=== PATIENT | female | born 1975 | race American Indian/Alaskan Native ===

== ENCOUNTER 2016-08-29 18:23 | Emergency (ER) | payer MEDICARE, MEDICAID ==
[2016-08-29 21:15] LABS: CHLORIDE,CL 101 mmol/L (101-111); SODIUM,NA 134 mmol/L (135-145)
--- NOTE | 2016-08-29 21:44 | EDM.PDOC ---
ED HPI GENERAL MEDICAL PROBLEM - General Chief Complaint: Lower Extremity Injury/Pain Stated Complaint: LEFT LEG PAINS, [id number] Time Seen by Provider: 08/29/16 19:15 Source of Information: Reports: Patient History Limitations: Reports: No Limitations - History of Present Illness INITIAL COMMENTS - FREE TEXT/NARRATIVE: increasing redness to left lower leg since Monday. Hx MRSA. Diabetic and RA. Fevers yesterday. No hx of clotting disorders. Hospitalized multiple times for skin infections. No known wound to area. Started in vicinity of old scars. Left Lower Leg Pain Score (Numeric/FACES): 10 - Related Data Allergies Allergy/AdvReac Type Severity Reaction Status Date / Time daptomycin Allergy Rash Verified 08/29/16 19:24 rituximab [From Rituxan] Allergy Difficulty Verified 08/29/16 19:24 Breathing Home Meds: Home Meds Ascorbic Acid [Vitamin C] 250 mg PO TID 03/08/14 [History] Ibuprofen [Motrin] 600 mg PO Q8H PRN 03/08/14 [History] predniSONE 5 mg PO BID 03/08/14 [History] Ferrous Sulfate [Iron] 325 mg PO TID 09/13/14 [History] Pantoprazole [Pantoprazole Sodium] 40 mg PO DAILY 09/13/14 [History] Albuterol [Proventil Neb Soln] 2.5 mg NEB QIDRT PRN 04/27/15 [History] Calcium Carbonate/Vitamin D3 [Calcium 500 + Vit D 400] 1 tab PO DAILY 08/07/15 [ History] DULoxetine [Cymbalta] 60 mg PO DAILY 08/07/15 [History] Etanercept [Enbrel] 25 mg IM .TWICE A WEEK 08/07/15 [History] Insulin Glarg,Human.Rec.Analog [LantUS Solostar] 20 units SQ BEDTIME 08/07/15 [ History] Insulin Lispro [Humalog] 10 units SQ TIDAC PRN 08/07/15 [History] rOPINIRole [Requip] 1 mg PO BEDTIME 08/13/15 [History] Multivitamin [Multivitamins] 1 each PO DAILY 09/20/15 [History] oxyCODONE HCl/Acetaminophen [Endocet 10-325 mg Tablet] 1 each PO DAILY PRN 09/19 [History] Ketorolac [Acular 0.5% Ophth Soln] 1 drop EYERT ASDIRECTED 04/14/16 [History] Lisinopril [Prinivil] 2.5 mg PO DAILY 04/14/16 [History] Ofloxacin [Ofloxacin] 1 drop EYERT ASDIRECTED 04/14/16 [History] Oxybutynin [Oxybutynin ER] 5 mg PO BEDTIME 04/14/16 [History] Pregabalin [Lyrica] 75 mg PO BEDTIME 04/14/16 [History] cycloSPORINE [Restasis] 1 drop EYEBOTH ASDIRECTED 04/14/16 [History] prednisoLONE Acetate [Pred Forte 1% Ophth Susp] 1 drop EYERT ASDIRECTED [History] Insulin Aspart [NovoLOG] 20 units INJECT BID 05/16/16 [History] Past Medical History - Past Health History Medical/Surgical History: Denies Medical/Surgical History HEENT History: Reports: Cataract, Impaired Vision Other HEENT History: wears glasses Cardiovascular History: Reports: Hypertension, SOB on Exertion Respiratory History: Reports: Bronchitis, Recurrent, Sleep Apnea, SOB Gastrointestinal History: Reports: Gastritis Other Gastrointestinal History: chronic stomach pains. 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 OSTEOMELITIS OF RIGHT FOOT Neurological History: Reports: None, Other (See Below) Other Neuro History: SOMNOLENCE, DAYTIME Psychiatric History: Reports: None, Anxiety, Eating Disorders Endocrine/Metabolic History: Reports: Diabetes, Type II, IDDM, Obesity/BMI 30+ Hematologic History: Reports: Iron Deficiency, Other (See Below) Other Hematologic History: HX OF SEPSIS. HX OF MRSA INFECTION Immunologic History: Reports: Immunosuppression, Other (See Below) Other Immunologic History: RA Oncologic (Cancer) History: Reports: None Dermatologic History: Reports: Cellulitis, Other (See Below) Other Dermatologic History: hx of mrsa. HX OF SKIN ULCERS OF FOOT, BILAT. DIABETIC SKIN ULCERS. CELLULITIS OF L ANTERIOR LOWER LEG. BIOPSY OF SKIN LESION - Infectious Disease History Infectious Disease History: Reports: Chicken Pox, MRSA, Shingles - Past Surgical History HEENT Surgical History: Reports: None GI Surgical History: Reports: EGD, Other (See Below) Musculoskeletal Surgical History: Reports: None, Other (See Below) Oncologic Surgical History: Reports: None Dermatological Surgical History: Reports: Other (See Below) Social & Family History - Family History Family Medical History: Noncontributory HEENT: Reports: None Cardiac: Reports: None Respiratory: Reports: None GI: Reports: None : Reports: None OBGYN: Reports: None Musculoskeletal: Reports: RA Neurological: Reports: None Psychiatric: Reports: Depression Endocrine/Metabolic: Reports: Diabetes, type II Hematologic: Reports: None Immunologic: Reports: None Dermatologic: Reports: None Oncologic: Reports: None - Tobacco Use Smoking Status *Q: Former Smoker Years of Tobacco use: 10 Packs/Tins Daily: 0.5 Used Tobacco, but Quit: No Month Tobacco Last Used: 09/06/2010 Second Hand Smoke Exposure: No - Caffeine Use Caffeine Use: Reports: Coffee, Soda, Tea - Alcohol Use Days Per Week of Alcohol Use: 0 - Recreational Drug Use Recreational Drug Use: No Drug Use in Last 12 Months: No - Living Situation & Occupation Living situation: Reports: with Family Review of Systems - Review of Systems Review Of Systems: See Below Constitutional: Reports: Fever Eyes: Reports: No Symptoms Ears: Reports: No Symptoms Nose: Reports: No Symptoms Mouth/Throat: Reports: No Symptoms Respiratory: Reports: No Symptoms Cardiovascular: Reports: No Symptoms Musculoskeletal: Reports: Leg Pain (left) Skin: Reports: Erythema, Change in Color, Other Neurological: Reports: No Symptoms ED EXAM, GENERAL - Physical Exam Exam: See Below Exam Limited By: No Limitations General Appearance: Alert, Moderate Distress, Obese Eye Exam: Bilateral Eye: EOMI, PERRL Ears: Normal External Exam Nose: Normal Inspection Throat/Mouth: Normal Inspection Head: Atraumatic Neck: Normal Inspection Respiratory/Chest: No Respiratory Distress, Lungs Clear, Normal Breath Sounds Cardiovascular: Normal Peripheral Pulses, Regular Rate, Rhythm GI/Abdominal: Normal Bowel Sounds, Soft, Non-Tender Extremities: Leg Pain, Redness Neurological: Alert, Oriented, Normal Cognition Skin Exam: Warm, Dry, Erythema, Increased Warmth, Other (increased redness to left lowe extremity area marked, no open areas visualized, 3+ edema posterior medial , pain with light touch. ). No: Normal Color Course - Vital Signs Last Recorded V/S: Last Vital Signs Temp 97.0 F 08/29/16 23:44 Pulse 98 08/29/16 23:44 Resp 18 08/29/16 23:44 BP 109/55 L 08/29/16 23:44 Pulse Ox 98 08/29/16 23:44 - Orders/Labs/Meds Orders: Active Orders 24 hr Category Date Time Status Glucose [Blood Glucose Check, Bedside] [RC] ONETIME Care 08/29/16 23:05 Active CULTURE BLOOD [BC] Stat Lab 08/29/16 20:46 Received Labs: Laboratory Tests 08/29/16 08/29/16 08/29/16 Range/Units 20:46 20:46 20:46 WBC 6.8 (5.0-10.0) 10^3/uL RBC 5.23 (4.2-5.4) 10^6/uL Hgb 15.4 (12.0-16.0) g/dL Hct 47.5 H (37.0-47.0) % MCV 90.8 (80-100) fL MCH 29.4 (27.0-34.0) pg MCHC 32.4 L (33.0-35.0) g/dL Plt Count 255 (150-450) 10^3/uL Neut % (Auto) 85.4 H (42.2-75.2) % Lymph % (Auto) 11.3 L (20.5-50.1) % Emmons % (Auto) 2.9 (2-8) % Eos % (Auto) 0.4 L (1.0-3.0) % Baso % (Auto) 0.0 (0.0-1.0) % Sodium 134 L (135-145) mmol/L Potassium 4.0 (3.6-5.0) mmol/L Chloride 101 (101-111) mmol/L Carbon Dioxide 20.0 L (21.0-31.0) mmol/L Anion Gap 17.0 BUN 14 (7-18) mg/dL Creatinine 1.0 (0.6-1.3) mg/dL Est Cr Clr Drug Dosing 74.68 mL/min Estimated GFR (MDRD) > 60 BUN/Creatinine Ratio 14.00 Glucose 265 H (74-105) mg/dL POC Glucose (70-105) mg/dl Lactic Acid 1.7 (0.5-2.2) mmol/L Calcium 9.1 (8.4-10.2) mg/dl Total Bilirubin 0.8 (0.2-1.0) mg/dL AST 30 (10-42) IU/L ALT 25 (10-60) IU/L Alkaline Phosphatase 68 (42-121) IU/L Total Protein 8.3 H (6.7-8.2) g/dl Albumin 3.8 (3.2-5.5) g/dl Globulin 4.5 Albumin/Globulin Ratio 0.84 Amylase 17 L (28-100) U/L Lipase 23 (22-51) U/L // Range/Units 23:06 WBC (5.0-10.0) 10^3/uL RBC (4.2-5.4) 10^6/uL Hgb (12.0-16.0) g/dL Hct (37.0-47.0) % MCV (80-100) fL MCH (27.0-34.0) pg MCHC (33.0-35.0) g/dL Plt Count (150-450) 10^3/uL Neut % (Auto) (42.2-75.2) % Lymph % (Auto) (20.5-50.1) % Emmons % (Auto) (2-8) % Eos % (Auto) (1.0-3.0) % Baso % (Auto) (0.0-1.0) % Sodium (135-145) mmol/L Potassium (3.6-5.0) mmol/L Chloride (101-111) mmol/L Carbon Dioxide (21.0-31.0) mmol/L Anion Gap BUN (7-18) mg/dL Creatinine (0.6-1.3) mg/dL Est Cr Clr Drug Dosing mL/min Estimated GFR (MDRD) BUN/Creatinine Ratio Glucose (74-105) mg/dL POC Glucose 243 H (70-105) mg/dl Lactic Acid (0.5-2.2) mmol/L Calcium (8.4-10.2) mg/dl Total Bilirubin (0.2-1.0) mg/dL AST (10-42) IU/L ALT (10-60) IU/L Alkaline Phosphatase (42-121) IU/L Total Protein (6.7-8.2) g/dl Albumin (3.2-5.5) g/dl Globulin Albumin/Globulin Ratio Amylase (28-100) U/L Lipase (22-51) U/L Meds: Medications Discontinued Medications Generic Name Dose Route Start Last Admin Trade Name Bart PRN Reason Stop Dose Admin Cephalexin Confirm 08/29/16 23:40 Keflex Administered 08/29/16 23:41 Dose 1,000 mg .ROUTE .STK-MED ONE Diphenhydramine HCl 25 mg 08/29/16 21:48 08/29/16 21:58 Benadryl PO 08/29/16 21:49 25 mg ONETIME ONE Administration Vancomycin HCl 1 gm/ Sodium 250 mls @ 167 mls/hr 08/29/16 21:47 08/29/16 22: 00 Chloride IV 08/29/16 23:16 167 mls/hr ONETIME ONE Administration Insulin Human Regular 6 unit 08/29/16 21:53 08/29/16 22:05 Humulin R SUBCUT 08/29/16 21:54 6 units ONETIME ONE Administration Protocol Oxycodone/Acetaminophen 1 tab 08/29/16 22:20 08/29/16 22:22 Percocet 325-5 Mg PO 08/29/16 22:21 1 tab ONETIME ONE Administration Trimethoprim/Sulfamethoxazole Confirm 08/29/16 23:40 Septra Ds Administered 08/29/16 23:41 Dose 2 tab .ROUTE .STK-MED ONE - Re-Assessments/Exams Free Text/Narrative Re-Assessment/Exam: 08/30/16 00:06 IV antibiotic completed. Patient refused to wait for discharge instructions or prescriptions for continuing antibiotics. Left ambulatory. Departure - Departure Time of Disposition: 00:10 Disposition: Home, Self-Care 01 Condition: Undetermined Clinical Impression: Cellulitis of left lower extremity, Diabetes mellitus, Rheumatoid arthritis, Immunocompromised due to corticosteroids Hyperglycemia due to type 2 diabetes mellitus Qualifiers: Diabetes mellitus nursing home insulin use: unspecified nursing home insulin use status Qualified Code(s): E11.65 - Type 2 diabetes mellitus with hyperglycemia - Discharge Information Instructions: Cellulitis, Adult, [id number] Referrals: Faby Jenkins MD [Primary Care Provider] - Forms: ED Department Discharge Additional Instructions: keflex 500mg one 4 times daily for one week Bactrim DS one twice daily for one week Recheck in Clinic in 1-2 days rest elevate extremity - My Orders Last 24 Hours: My Active Orders 08/29/16 20:46 CULTURE BLOOD [BC] Stat 08/29/16 23:05 Glucose [Blood Glucose Check, Bedside] [] ONETIME - Assessment/Plan Last 24 Hours: My Active Orders 08/29/16 20:46 CULTURE BLOOD [BC] Stat 08/29/16 23:05 Glucose [Blood Glucose Check, Bedside] [RC] ONETIME
[2016-08-29] MEDS ORDERED: diphenhydrAMINE 25 MG Tab PO ONE (21:48)
[2016-08-29] MEDS ORDERED: Insulin Regular, Human 100 Units/ML 3 ML Vial SUBCUT ONE (21:53)
[2016-08-29] MEDS ORDERED: Acetaminophen/oxyCODONE 325-5 MG Tab PO ONE (22:20)
[2016-08-29] MEDS ORDERED: Sulfamethoxazole/Trimethoprim 800-160 MG Tab PO ONE (23:40)
[2016-08-29] MEDS ORDERED: Cephalexin 500 MG Cap PO ONE (23:40)
[2016-08-29] MEDS ORDERED: Sulfamethoxazole/Trimethoprim 800-160 MG Tab ONE (23:40)
[2016-08-29] MEDS ORDERED: Cephalexin 500 MG Cap ONE (23:40)
[2016-08-29 23:45] VITALS: BP 109/55
== END 2016-08-30 00:10 | disposition home or self-care (01) ==
LOC: DL.ED 18:23
DX: L03.116 Cellulitis of left lower limb (principal); E11.9 Type 2 diabetes mellitus without complications; Z79.4 Long term (current) use of insulin; M06.9 Rheumatoid arthritis, unspecified; T45.1X5A Adverse effect of antineoplastic and immunosuppressive drugs, initial encounter; Z79.52 Long term (current) use of systemic steroids; I10 Essential (primary) hypertension; G47.30 Sleep apnea, unspecified; M79.7 Fibromyalgia; M41.9 Scoliosis, unspecified; F41.9 Anxiety disorder, unspecified; F50.9 Eating disorder, unspecified; E66.9 Obesity, unspecified; E61.1 Iron deficiency; Z86.14 Personal history of Methicillin resistant Staphylococcus aureus infection; Z79.899 Other long term (current) drug therapy; Z87.891 Personal history of nicotine dependence
CPT/HCPCS: 36415; 80053; 82150; 82550; 82962; 83605; 83690; 85025; 87040; 96365; 96366; 96372; 99283; A9270; J1815; J3370; J7050; 99284

== ENCOUNTER 2016-11-08 02:58 | Inpatient (IN) | payer MEDICARE, MEDICAID ==
--- NOTE | 2016-11-08 03:36 | EDM.PDOC ---
ED HPI GENERAL MEDICAL PROBLEM - General Chief Complaint: Lower Extremity Injury/Pain Stated Complaint: INFECTION IN LEG [id number] Time Seen by Provider: 11/08/16 03:29 Source of Information: Reports: Patient History Limitations: Reports: No Limitations - History of Present Illness INITIAL COMMENTS - FREE TEXT/NARRATIVE: c/o increased pain in left lower leg wound for past 2 days after completing antibiotic, Patient notes since stopping abx, would is larger, draining more and more painful. Hx MRSA, DM and RA. Appoint to follow up scheduled with PCP tomorrow am but pain to bad to wait. Noted odor to wound drainage on monday. Wound width and length increasing. Difficult to move since taken off steroids with infection. Has spent much time in bed. Notes unable some days to hold and grasp eating utensil to feed self. Location: Reports: Lower Extremity, Left Quality: Reports: Burning, Throbbing Severity: Moderate Left Lower Leg Pain Score (Numeric/FACES): 9 - Related Data Allergies Allergy/AdvReac Type Severity Reaction Status Date / Time daptomycin Allergy Rash Verified 11/08/16 03:15 rituximab [From Rituxan] Allergy Difficulty Verified 11/08/16 03:15 Breathing Home Meds: Home Meds Ascorbic Acid [Vitamin C] 250 mg PO TID 03/08/14 [History] Ibuprofen [Motrin] 600 mg PO Q8H PRN 03/08/14 [History] predniSONE 5 mg PO BID 03/08/14 [History] Ferrous Sulfate [Iron] 325 mg PO TID 09/13/14 [History] Pantoprazole [Pantoprazole Sodium] 40 mg PO DAILY 09/13/14 [History] Albuterol [Proventil Neb Soln] 2.5 mg NEB QIDRT PRN 04/27/15 [History] Calcium Carbonate/Vitamin D3 [Calcium 500 + Vit D 400] 1 tab PO DAILY 08/07/15 [ History] DULoxetine [Cymbalta] 60 mg PO DAILY 08/07/15 [History] Etanercept [Enbrel] 25 mg IM .TWICE A WEEK 08/07/15 [History] Insulin Glarg,Human.Rec.Analog [LantUS Solostar] 20 units SQ BEDTIME 08/07/15 [ History] Insulin Lispro [Humalog] 10 units SQ TIDAC PRN 08/07/15 [History] rOPINIRole [Requip] 1 mg PO BEDTIME 08/13/15 [History] Multivitamin [Multivitamins] 1 each PO DAILY 09/20/15 [History] oxyCODONE HCl/Acetaminophen [Endocet 10-325 mg Tablet] 1 each PO Q4H PRN [History] Lisinopril [Prinivil] 2.5 mg PO DAILY 04/14/16 [History] Oxybutynin [Oxybutynin ER] 5 mg PO BEDTIME 04/14/16 [History] Pregabalin [Lyrica] 75 mg PO BEDTIME 04/14/16 [History] cycloSPORINE [Restasis] 1 drop EYEBOTH ASDIRECTED 04/14/16 [History] Insulin Aspart [NovoLOG] 20 units INJECT BID 05/16/16 [History] Past Medical History - Past Health History Medical/Surgical History: Denies Medical/Surgical History HEENT History: Reports: Cataract, Impaired Vision Other HEENT History: wears glasses Cardiovascular History: Reports: Hypertension, SOB on Exertion Respiratory History: Reports: Bronchitis, Recurrent, Sleep Apnea, SOB Gastrointestinal History: Reports: Gastritis Other Gastrointestinal History: chronic stomach pains. 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 OSTEOMELITIS OF RIGHT FOOT Neurological History: Reports: None, Other (See Below) Other Neuro History: SOMNOLENCE, DAYTIME Psychiatric History: Reports: None, Anxiety, Eating Disorders Endocrine/Metabolic History: Reports: Diabetes, Type II, IDDM, Obesity/BMI 30+ Hematologic History: Reports: Iron Deficiency, Other (See Below) Other Hematologic History: HX OF SEPSIS. HX OF MRSA INFECTION Immunologic History: Reports: Immunosuppression, Other (See Below) Other Immunologic History: RA Oncologic (Cancer) History: Reports: None Dermatologic History: Reports: Cellulitis, Other (See Below) Other Dermatologic History: hx of mrsa. HX OF SKIN ULCERS OF FOOT, BILAT. DIABETIC SKIN ULCERS. CELLULITIS OF L ANTERIOR LOWER LEG. BIOPSY OF SKIN LESION - Infectious Disease History Infectious Disease History: Reports: Chicken Pox, MRSA, Shingles - Past Surgical History HEENT Surgical History: Reports: None GI Surgical History: Reports: EGD Musculoskeletal Surgical History: Reports: None Oncologic Surgical History: Reports: None Social & Family History - Family History Family Medical History: Noncontributory HEENT: Reports: None Cardiac: Reports: None Respiratory: Reports: None GI: Reports: None : Reports: None OBGYN: Reports: None Musculoskeletal: Reports: RA Neurological: Reports: None Psychiatric: Reports: Depression Endocrine/Metabolic: Reports: Diabetes, type II Hematologic: Reports: None Immunologic: Reports: None Dermatologic: Reports: None Oncologic: Reports: None - Tobacco Use Smoking Status *Q: Unknown Ever Smoked Years of Tobacco use: 10 Packs/Tins Daily: 0.5 Used Tobacco, but Quit: No Month Tobacco Last Used: 09/06/2010 Second Hand Smoke Exposure: No - Caffeine Use Caffeine Use: Reports: Coffee, Soda - Alcohol Use Days Per Week of Alcohol Use: 0 - Recreational Drug Use Recreational Drug Use: No Drug Use in Last 12 Months: No - Living Situation & Occupation Living situation: Reports: with Family Review of Systems - Review of Systems Review Of Systems: See Below Constitutional: Reports: No Symptoms Eyes: Reports: No Symptoms Ears: Reports: No Symptoms Nose: Reports: No Symptoms Mouth/Throat: Reports: No Symptoms Respiratory: Reports: No Symptoms, Shortness of Breath (chronic with RA . On nebs at home , no change) Cardiovascular: Reports: No Symptoms GI/Abdominal: Reports: No Symptoms Musculoskeletal: Reports: Leg Pain (left) Skin: Reports: Wound Psychiatric: Reports: No Symptoms ED EXAM, GENERAL - Physical Exam Exam: See Below Exam Limited By: Language Barrier General Appearance: Alert, Moderate Distress, Obese Eye Exam: Bilateral Eye: EOMI Ears: Normal External Exam Nose: Nasal Deformity Throat/Mouth: Normal Inspection Head: Atraumatic, Normocephalic Respiratory/Chest: No Respiratory Distress, Lungs Clear Cardiovascular: Regular Rate, Rhythm GI/Abdominal: Normal Bowel Sounds, Soft Extremities: Normal Range of Motion. No: Non-Tender Neurological: Alert, Oriented, Normal Cognition Psychiatric: Normal Affect, Anxious, Tearful Skin Exam: Warm, Erythema, Wound/Incision (2cmx.75 irredular open wound, serosanguineous drainage. Beefy red bace with 3cmx 5cm red area, posterior calf tenderness with palpation of wound and surrounding tissue. ). No: Normal Color Course - Vital Signs Last Recorded V/S: Last Vital Signs Temp 97.3 F 11/08/16 03:06 Pulse 93 11/08/16 03:06 Resp 20 11/08/16 03:06 BP 148/80 H 11/08/16 03:08 Pulse Ox 99 11/08/16 03:06 - Orders/Labs/Meds Orders: Active Orders 24 hr Category Date Time Status CULTURE BLOOD [BC] Stat Lab 11/08/16 03:45 Results CULTURE BLOOD [BC] Stat Lab 11/08/16 03:50 Received CULTURE WOUND [RM] Stat Lab 11/08/16 03:35 Received Sodium Chloride 0.9% [Normal Saline] 1,000 ml Med 11/08/16 03:37 Active IV .BOLUS Blood Culture x2 Reflex Set [OM.PC] Stat Oth 11/08/16 03:37 Ordered Medication Orders Sodium Chloride (Normal Saline) 1,000 mls @ 150 mls/hr IV .BOLUS ONE Stop: 11/08/16 10:16 Last Admin: 11/08/16 04:03 Dose: 150 mls/hr Labs: Laboratory Tests 11/08/16 11/08/16 11/08/16 Range/Units 03:50 03:50 03:50 WBC 4.3 L (5.0-10.0) 10^3/uL RBC 4.80 (4.2-5.4) 10^6/uL Hgb 14.0 (12.0-16.0) g/dL Hct 42.8 (37.0-47.0) % MCV 89.2 (80-100) fL MCH 29.2 (27.0-34.0) pg MCHC 32.7 L (33.0-35.0) g/dL Plt Count 274 (150-450) 10^3/uL Neut % (Auto) 47.4 (42.2-75.2) % Lymph % (Auto) 43.4 (20.5-50.1) % Wilcox % (Auto) 4.6 (2-8) % Eos % (Auto) 4.4 H (1.0-3.0) % Baso % (Auto) 0.2 (0.0-1.0) % PT (9.0-12.0) SEC INR (0.9-1.2) D-Dimer, Quantitative (0-400) ng/mL Sodium 138 (135-145) mmol/L Potassium 3.4 L (3.6-5.0) mmol/L Chloride 108 (101-111) mmol/L Carbon Dioxide 19.0 L (21.0-31.0) mmol/L Anion Gap 14.4 BUN 13 (7-18) mg/dL Creatinine 0.7 (0.6-1.3) mg/dL Est Cr Clr Drug Dosing 105.61 mL/min Estimated GFR (MDRD) > 60 BUN/Creatinine Ratio 18.57 Glucose 125 H (74-105) mg/dL Lactic Acid 1.7 (0.5-2.2) mmol/L Calcium 9.4 (8.4-10.2) mg/dl Total Bilirubin 0.3 (0.2-1.0) mg/dL AST 25 (10-42) IU/L ALT 23 (10-60) IU/L Alkaline Phosphatase 52 (42-121) IU/L C-Reactive Protein (0.0-1.3) mg/dL Total Protein 7.3 (6.7-8.2) g/dl Albumin 3.4 (3.2-5.5) g/dl Globulin 3.9 Albumin/Globulin Ratio 0.87 11/08/16 11/08/16 11/08/16 Range/Units 03:50 03:50 03:50 WBC (5.0-10.0) 10^3/uL RBC (4.2-5.4) 10^6/uL Hgb (12.0-16.0) g/dL Hct (37.0-47.0) % MCV (80-100) fL MCH (27.0-34.0) pg MCHC (33.0-35.0) g/dL Plt Count (150-450) 10^3/uL Neut % (Auto) (42.2-75.2) % Lymph % (Auto) (20.5-50.1) % Wilcox % (Auto) (2-8) % Eos % (Auto) (1.0-3.0) % Baso % (Auto) (0.0-1.0) % PT 9.2 (9.0-12.0) SEC INR 0.9 (0.9-1.2) D-Dimer, Quantitative 2850 H (0-400) ng/mL Sodium (135-145) mmol/L Potassium (3.6-5.0) mmol/L Chloride (101-111) mmol/L Carbon Dioxide (21.0-31.0) mmol/L Anion Gap BUN (7-18) mg/dL Creatinine (0.6-1.3) mg/dL Est Cr Clr Drug Dosing mL/min Estimated GFR (MDRD) BUN/Creatinine Ratio Glucose (74-105) mg/dL Lactic Acid (0.5-2.2) mmol/L Calcium (8.4-10.2) mg/dl Total Bilirubin (0.2-1.0) mg/dL AST (10-42) IU/L ALT (10-60) IU/L Alkaline Phosphatase (42-121) IU/L C-Reactive Protein 2.0 H (0.0-1.3) mg/dL Total Protein (6.7-8.2) g/dl Albumin (3.2-5.5) g/dl Globulin Albumin/Globulin Ratio Meds: Medications Generic Name Dose Route Start Last Admin Trade Name Freq PRN Reason Stop Dose Admin Sodium Chloride 1,000 mls @ 150 mls/hr 11/08/16 03:37 11/08/16 04:03 Normal Saline IV 11/08/16 10:16 150 mls/hr .BOLUS ONE Administration Discontinued Medications Generic Name Dose Route Start Last Admin Trade Name Freq PRN Reason Stop Dose Admin Diphenhydramine HCl 50 mg 11/08/16 04:17 11/08/16 04:24 Benadryl PO 11/08/16 04:18 50 mg ONETIME ONE Administration Hydromorphone HCl 1 mg 11/08/16 03:39 11/08/16 04:06 Dilaudid IVPUSH 11/08/16 03:40 1 mg ONETIME ONE Administration Hydromorphone HCl 1 mg 11/08/16 04:17 11/08/16 04:25 Dilaudid IM 11/08/16 04:18 1 mg ONETIME ONE Administration Vancomycin HCl 1 gm/ Sodium 250 mls @ 167 mls/hr 11/08/16 03:38 11/08/16 04: 04 Chloride IV 11/08/16 05:07 167 mls/hr ONETIME ONE Administration Ondansetron HCl 4 mg 11/08/16 03:38 11/08/16 04:05 Zofran IV 11/08/16 03:39 4 mg ONETIME ONE Administration - Re-Assessments/Exams Free Text/Narrative Re-Assessment/Exam: 11/08/16 05:42 Pain not resolved completely but tolerable. Intermittent dozing. Describes pain now as shooting. up to calf, worse wit movement. Dr. Wilson consulted, agree to admit for observation and further management of left calf pain with wound. Blood and wound cultures obtained and Abx initiated. MD aware of elevated d-dimer in patient. Jamilah does not some SOB though not any change from baseline. Departure - Departure Time of Disposition: 05:47 Disposition: Admitted As Inpatient 65 Condition: Undetermined Clinical Impression: Diabetes mellitus, History of MRSA infection, Rheumatoid arthritis, Restless leg syndrome Cellulitis Qualifiers: Site of cellulitis: extremity Site of cellulitis of extremity: lower extremity Laterality: left Qualified Code(s): L03.116 - Cellulitis of left lower limb Wound of left leg Qualifiers: Encounter type: subsequent encounter Qualified Code(s): S81.802D - Unspecified open wound, left lower leg, subsequent encounter Chronic pain Qualifiers: Chronic pain type: chronic pain syndrome Qualified Code(s): G89.4 - Chronic pain syndrome - Discharge Information Forms: ED Department Discharge - My Orders Last 24 Hours: My Active Orders 11/08/16 03:35 CULTURE WOUND [RM] Stat 11/08/16 03:37 Sodium Chloride 0.9% [Normal Saline] 1,000 ml IV .BOLUS Blood Culture x2 Reflex Set [OM.PC] Stat 11/08/16 03:45 CULTURE BLOOD [BC] Stat 11/08/16 03:50 CULTURE BLOOD [BC] Stat - Assessment/Plan Last 24 Hours: My Active Orders 11/08/16 03:35 CULTURE WOUND [RM] Stat 11/08/16 03:37 Sodium Chloride 0.9% [Normal Saline] 1,000 ml IV .BOLUS Blood Culture x2 Reflex Set [OM.PC] Stat 11/08/16 03:45 CULTURE BLOOD [BC] Stat 11/08/16 03:50 CULTURE BLOOD [BC] Stat
[2016-11-08] MEDS ORDERED: Sodium Chloride 0.9% 1,000 ML IV ONE (03:37)
[2016-11-08] MEDS ORDERED: Ondansetron 4 MG/2 ML SDV IV ONE (03:38)
[2016-11-08] MEDS ORDERED: HYDROmorphone 1 MG/ML Syringe IVPUSH ONE (03:39)
[2016-11-08] MEDS ORDERED: diphenhydrAMINE 50 MG Cap PO ONE (04:17)
[2016-11-08] MEDS ORDERED: HYDROmorphone 1 MG/ML Syringe IM ONE (04:17)
[2016-11-08 04:23] LABS: CHLORIDE,CL 108 mmol/L (101-111); SODIUM,NA 138 mmol/L (135-145)
[2016-11-08] MEDS ORDERED: Albuterol 0.083% 2.5 MG/3 ML Neb Soln NEB PRN (08:29)
[2016-11-08] MEDS ORDERED: INSULIN LISPRO 10 UNIT SQ PRN (08:29)
[2016-11-08] MEDS ORDERED: Acetaminophen 325 MG Tab PO PRN (08:31)
--- NOTE | 2016-11-08 09:32 | PCM.HP ---
H&P History of Present Illness - General Date of Service: 11/08/16 Admit Problem/Dx: Admission Diagnosis/Problem Admission Diagnosis/Problem Cellulitis Source of Information: Patient, Old Records - History of Present Illness Initial Comments - Free Text/Narative: The patient is a 41-year-old lady with a history of rheumatoid arthritis, on chronic in the suppressants including Enbrel and prednisone. The patient has a history of MRSA colonization. She was noted to have on abscess on the left with MRSA. She underwent surgery about 5 weeks prior to this admission. She was treated with IV vancomycin and later oral clindamycin For a while it seemed that the wound is healing well but in the past the 2 weeks the wound has been enlarging. There is increased drainage. Associated with moderate to severe pain and redness. She did not measure her temperature at home. Left Lower Leg Pain Score (Numeric/FACES): 6 - Related Data Allergies/Adverse Reactions: Allergies Allergy/AdvReac Type Severity Reaction Status Date / Time daptomycin Allergy Rash Verified 11/08/16 03:15 rituximab [From Rituxan] Allergy Difficulty Verified 11/08/16 03:15 Breathing Home Medications: Home Meds Ascorbic Acid [Vitamin C] 250 mg PO TID 03/08/14 [History] Ibuprofen [Motrin] 600 mg PO Q8H PRN 03/08/14 [History] predniSONE 5 mg PO BID 03/08/14 [History] Ferrous Sulfate [Iron] 325 mg PO TID 09/13/14 [History] Pantoprazole [Pantoprazole Sodium] 40 mg PO DAILY 09/13/14 [History] Albuterol [Proventil Neb Soln] 2.5 mg NEB QIDRT PRN 04/27/15 [History] Calcium Carbonate/Vitamin D3 [Calcium 500 + Vit D 400] 1 tab PO DAILY 08/07/15 [ History] DULoxetine [Cymbalta] 60 mg PO DAILY 08/07/15 [History] Etanercept [Enbrel] 25 mg IM .TWICE A WEEK 08/07/15 [History] Insulin Glarg,Human.Rec.Analog [LantUS Solostar] 20 units SQ BEDTIME 08/07/15 [ History] Insulin Lispro [Humalog] 10 units SQ TIDAC PRN 08/07/15 [History] rOPINIRole [Requip] 1 mg PO BEDTIME 08/13/15 [History] Multivitamin [Multivitamins] 1 each PO DAILY 09/20/15 [History] oxyCODONE HCl/Acetaminophen [Endocet 10-325 mg Tablet] 1 each PO Q4H PRN [History] Lisinopril [Prinivil] 2.5 mg PO DAILY 04/14/16 [History] Oxybutynin [Oxybutynin ER] 5 mg PO BEDTIME 04/14/16 [History] Pregabalin [Lyrica] 75 mg PO BEDTIME 04/14/16 [History] cycloSPORINE [Restasis] 1 drop EYEBOTH ASDIRECTED 04/14/16 [History] Insulin Aspart [NovoLOG] 20 units INJECT BID 05/16/16 [History] Past Medical History - Past Health History Medical/Surgical History: Denies Medical/Surgical History HEENT History: Reports: Cataract, Impaired Vision Other HEENT History: wears glasses Cardiovascular History: Reports: Hypertension, SOB on Exertion Respiratory History: Reports: Bronchitis, Recurrent, Sleep Apnea, SOB Gastrointestinal History: Reports: Gastritis, Other (See Below) Other Gastrointestinal History: chronic stomach pains. ABCESS OF ABDOMEN Genitourinary History: Reports: None GIFT PACKER History: Reports: Other OB/BYN History: 2 Musculoskeletal History: Reports: Back Pain, Chronic, Fibromyalgia, RA, Other ( See Below) Other Musculoskeletal History: Scoliosis of the spine w/ chronic back pain. OSTEOMELITIS OF RIGHT FOOT Neurological History: Reports: None, Other (See Below) Other Neuro History: SOMNOLENCE, DAYTIME, nerve damage to back and legs Psychiatric History: Reports: None, Anxiety, Eating Disorders Endocrine/Metabolic History: Reports: Diabetes, Type II, IDDM, Obesity/BMI 30+ Hematologic History: Reports: Iron Deficiency, Other (See Below) Other Hematologic History: HX OF SEPSIS. HX OF MRSA INFECTION Immunologic History: Reports: Immunosuppression, Other (See Below) Other Immunologic History: RA Oncologic (Cancer) History: Reports: None Dermatologic History: Reports: Cellulitis, Other (See Below) Other Dermatologic History: hx of mrsa. HX OF SKIN ULCERS OF FOOT, BILAT. DIABETIC SKIN ULCERS. CELLULITIS OF L ANTERIOR LOWER LEG. BIOPSY OF SKIN LESION - Infectious Disease History Infectious Disease History: Reports: Chicken Pox, MRSA, Shingles - Past Surgical History HEENT Surgical History: Reports: None Cardiovascular Surgical History: Reports: None Musculoskeletal Surgical History: Reports: None Oncologic Surgical History: Reports: None Social & Family History - Family History Family Medical History: Noncontributory HEENT: Reports: None Cardiac: Reports: None Respiratory: Reports: None GI: Reports: None : Reports: None OBGYN: Reports: None Musculoskeletal: Reports: RA Neurological: Reports: None Psychiatric: Reports: Depression Endocrine/Metabolic: Reports: Diabetes, type II Hematologic: Reports: None Immunologic: Reports: None Dermatologic: Reports: None Oncologic: Reports: None - Tobacco Use Smoking Status *Q: Former Smoker Years of Tobacco use: 10 Packs/Tins Daily: 0.5 Used Tobacco, but Quit: No Month Tobacco Last Used: 09/06/2010 Second Hand Smoke Exposure: No - Caffeine Use Caffeine Use: Reports: Coffee, Soda - Alcohol Use Days Per Week of Alcohol Use: 0 - Recreational Drug Use Recreational Drug Use: No Drug Use in Last 12 Months: No - Living Situation & Occupation Living situation: Reports: with Family H&P Review of Systems - Review of Systems: Review Of Systems: See Below General: Reports: Malaise, Weakness. Denies: Fever Cardiovascular: Denies: Chest Pain Gastrointestinal: Denies: Abdominal Pain Musculoskeletal: Reports: Leg Pain Exam - Exam Exam: See Below - Vital Signs Vital Signs: Last Vital Signs Temp 36.4 C 11/08/16 06:44 Pulse 82 11/08/16 06:44 Resp 20 11/08/16 06:44 BP 129/66 11/08/16 06:44 Pulse Ox 97 11/08/16 06:44 Weight: 126.28 kg - Exam General: Alert, Oriented Neck: Supple Lungs: Clear to Auscultation (We will aggressively medically) Cardiovascular: Regular Rate, Regular Rhythm GI/Abdominal Exam: Normal Bowel Sounds, Soft Extremities: Pedal Edema (b/l) Skin: Warm, Other (left calf elcerative wound with erythema) Neuro Extensive - Mental Status: Alert, Oriented x3 Psychiatric: Alert, Normal Affect, Normal Mood - Patient Data Lab Results Last 24 hrs: Laboratory Results - last 24 hr 11/08/16 Range/Units 07:52 POC Glucose 134 H (70-105) mg/dl Result Diagrams: 11/08/16 03:50 11/08/16 03:50 *Q Meaningful Use (ADM) - VTE *Q VTE Criteria *Q: - Stroke *Q Stroke Criteria *Q: - AMI *Q AMI Criteria *Q: - Problem List (1) Cellulitis SNOMED Code(s): 454439617 ICD Code: L03.90 - CELLULITIS, UNSPECIFIED Status: Acute Current Visit: Yes Qualifiers: Site of cellulitis: extremity Site of cellulitis of extremity: lower extremity Laterality: left Qualified Code(s): L03.116 - Cellulitis of left lower limb (2) Chronic pain SNOMED Code(s): 52638793 ICD Code: G89.29 - OTHER CHRONIC PAIN Status: Acute Current Visit: Yes Qualifiers: Chronic pain type: chronic pain syndrome Qualified Code(s): G89.4 - Chronic pain syndrome (3) Diabetes mellitus SNOMED Code(s): 33299780 ICD Code: E11.9 - TYPE 2 DIABETES MELLITUS WITHOUT COMPLICATIONS Status: Acute Current Visit: Yes (4) Rheumatoid arthritis SNOMED Code(s): 41672940 ICD Code: M06.9 - RHEUMATOID ARTHRITIS, UNSPECIFIED Status: Acute Current Visit: Yes Problem List Initiated/Reviewed/Updated: Yes Orders Last 24hrs: Active Orders 24 hr Category Date Time Status Admission Status [Patient Status] [ADT] Routine ADT 11/08/16 07:25 Active Glucose [Blood Glucose Check, Bedside] [RC] QIDACANDBED Care 11/08/16 08:30 Active Oxygen Therapy [RC] PRN Care 11/08/16 08:31 Active Peripheral IV Care [RC] . DIRECTED Care 11/08/16 08:32 Active Up ad Janeth [RC] ASDIRECTED Care 11/08/16 08:31 Active VTE/DVT Education [RC] PER UNIT ROUTINE Care 11/08/16 08:31 Active Vital Signs [RC] Q4H Care 11/08/16 08:31 Active Wound Care [RC] Q8H Care 11/08/16 09:18 Ordered BASIC METABOLIC PANEL,BMP [CHEM] AM Lab 11/09/16 05:15 Ordered CBC WITH AUTO DIFF [HEME] AM Lab 11/09/16 05:15 Ordered Acetaminophen [Tylenol] Med 11/08/16 08:31 Active 650 mg PO Q4H PRN Albuterol [Proventil Neb Soln] Med 11/08/16 08:29 Ordered 2.5 mg NEB QIDRT PRN Ascorbic Acid [Vitamin C] Med 11/08/16 09:00 Ordered 250 mg PO TID Calcium Carbonate/Vitamin D3 [Calcium 500 + Vit D 400] Med 11/08/16 09:00 Ordered 1 tab PO DAILY DULoxetine [Cymbalta] Med 11/08/16 09:00 Ordered 60 mg PO DAILY Ferrous Sulfate Med 11/08/16 09:00 Ordered 325 mg PO TID Heparin Sodium Med 11/08/16 14:00 Active 5,000 units SUBCUT Q8HR Insulin Aspart [NovoLOG] Med 11/08/16 11:00 Active See Protocol SUBCUT TIDAC Insulin Glarg,Human.Rec.Analog Med 11/08/16 21:00 Ordered 20 units SQ BEDTIME Insulin Lispro [Humalog] Med 11/08/16 08:29 Ordered 10 units SQ TIDAC PRN Lisinopril [Prinivil] Med 11/08/16 09:00 Ordered 2.5 mg PO DAILY Multivitamin [Multivitamins] Med 11/08/16 09:00 Ordered 1 each PO DAILY Ondansetron [Zofran ODT] Med 11/08/16 08:31 Active 4 mg PO Q6H PRN Oxybutynin [Oxybutynin ER] Med 11/08/16 21:00 Ordered 5 mg PO BEDTIME Pantoprazole [Pantoprazole Sodium] Med 11/08/16 09:00 Ordered 40 mg PO DAILY Piperacillin/Tazobactam [Zosyn] 3.375 gm Med 11/08/16 09:00 Active Sodium Chloride 0.9% [Normal Saline] 100 ml IV Q6H Pregabalin [Lyrica] Med 11/08/16 21:00 Ordered 75 mg PO BEDTIME Sodium Chloride 0.9% [Saline Flush] Med 11/08/16 08:31 Active 10 ml FLUSH ASDIRECTED PRN Vancomycin Pharmacy to Dose [Pharmacy to Dose - Med 11/08/16 08:30 Ordered Vancomycin] 1 dose .XX ASDIRECTED Zolpidem [Ambien] Med 11/08/16 08:31 Active 5 mg PO BEDTIME PRN cycloSPORINE [Restasis] Med 11/08/16 08:30 Ordered DOSE each EYEBOTH ASDIRECTED oxyCODONE HCl/Acetaminophen Med 11/08/16 08:29 Ordered 1 each PO Q4H PRN rOPINIRole [Requip] Med 11/08/16 21:00 Ordered 1 mg PO BEDTIME Peripheral IV Insertion Adult [OM.PC] Routine Oth 11/08/16 08:31 Ordered Saline Lock Insert [OM.PC] Routine Oth 11/08/16 08:31 Ordered Venous Duplex Leg Lt [CV] Routine Ther 11/08/16 08:28 Ordered Medication Orders Acetaminophen (Tylenol) 650 mg PO Q4H PRN PRN Reason: Pain (Mild 1-3)/fever Albuterol (Proventil Neb Soln) 2.5 mg NEB QIDRT PRN PRN Reason: Wheezing Cyclosporine (Restasis) each EYEBOTH ASDIRECTED NELLY Ferrous Sulfate (Ferrous Sulfate) 325 mg PO TID NELLY Heparin Sodium (Porcine) (Heparin Sodium) 5,000 units SUBCUT Q8HR NELLY Sodium Chloride (Normal Saline) 1,000 mls @ 150 mls/hr IV .BOLUS ONE Stop: 11/08/16 10:16 Last Admin: 11/08/16 04:03 Dose: 150 mls/hr Piperacillin Sod/Tazobactam (Sod 3.375 gm/ Sodium Chloride) 100 mls @ 200 mls/ hr IV Q6H NELLY Ibuprofen (Motrin) 400 mg PO Q4H PRN PRN Reason: pain Insulin Aspart (Novolog) 0 unit SUBCUT TIDAC NELLY PRN Reason: Protocol Non-Formulary Medication (Ascorbic Acid [Vitamin C]) 250 mg PO TID NELLY Non-Formulary Medication (Calcium Carbonate/Vitamin D3 [Calcium 500 + Vit D 400] ) 1 tab PO DAILY NELLY Non-Formulary Medication (Duloxetine [Cymbalta]) 60 mg PO DAILY NELLY Non-Formulary Medication (Insulin Glarg,Human.Rec.Analog) 20 units SQ BEDTIME NELLY Non-Formulary Medication (Insulin Lispro [Humalog]) 10 units SQ TIDAC PRN PRN Reason: Blood Glucose Non-Formulary Medication (Lisinopril [Prinivil]) 2.5 mg PO DAILY NELLY Non-Formulary Medication (Multivitamin [Multivitamins]) 1 each PO DAILY NELLY Non-Formulary Medication (Oxycodone Hcl/Acetaminophen) 1 each PO Q4H PRN PRN Reason: Pain Non-Formulary Medication (Pantoprazole [Pantoprazole Sodium]) 40 mg PO DAILY NELLY Non-Formulary Medication (Ropinirole [Requip]) 1 mg PO BEDTIME NELLY Ondansetron HCl (Zofran Odt) 4 mg PO Q6H PRN PRN Reason: nausea, able to take PO Oxybutynin Chloride (Oxybutynin Er) 5 mg PO BEDTIME NELLY Pregabalin (Lyrica) 75 mg PO BEDTIME NELLY Sodium Chloride (Saline Flush) 10 ml FLUSH ASDIRECTED PRN PRN Reason: Keep Vein Open Vancomycin HCl (Pharmacy To Dose - Vancomycin) 1 dose .XX ASDIRECTED NELLY Zolpidem Tartrate (Ambien) 5 mg PO BEDTIME PRN PRN Reason: Sleep Assessment/Plan Comment:: The patient is a 41-year-old with a history of chronic pain, rheumatoid arthritis on immunosuppressants. She has a history of MRSA abscess requiring surgery and IV vancomycin antibiotic. It appeared that the site of the wound is improving but the but then started to worsen with increased redness, drainage, pain. #1 left cellulitis with history of MRSA abscess The patient was on oral clindamycin but ran out of it a few days prior to admission We will obtain blood cultures Treat with Zosyn and vancomycin IV Wound care with Xeroform #2 pain control with oxycodone, Motrin, IV morphine as needed #3 history of rheumatoid arthritis Will hold the immunosuppressants #4 diabetes Treat with Humalog and Levemir combination Follow blood sugars use supplemental insulin as needed #5 the patient was complaining of left calf pain Will obtain ultrasound rule out DVT #6 DVT prophylaxis will be with subcutaneous heparin
[2016-11-08] MEDS: Ascorbic Acid 500 MG Tab PO SCH ×3 (09:50→21:07)
[2016-11-08] MEDS: Calcium Carbonate/Vitamin D3 1250 MG-200 Unit Tab PO SCH (09:50)
[2016-11-08] MEDS: Piperacillin/Tazobactam 3.375 GM in Sodium Chloride 0.9% 100 ML IV SCH ×3 (09:50→21:07)
[2016-11-08] MEDS: Ibuprofen 400 MG Tab PO PRN (09:50)
[2016-11-08] MEDS: Multivitamins,Therapeutic Tab PO SCH (09:56)
[2016-11-08] MEDS: DULoxetine 30 MG Cap PO SCH (09:56)
[2016-11-08] MEDS: Pantoprazole 40 MG Tab.CR PO SCH (09:57)
[2016-11-08] MEDS: Lisinopril 5 MG Tab PO SCH (09:57)
[2016-11-08] MEDS: cycloSPORINE Ophth Drops U/D Box of 30 EYEBOTH SCH ×3 (10:27→21:08)
[2016-11-08] MEDS: Acetaminophen/oxyCODONE 325-5 MG Tab PO PRN ×2 (11:27→15:26)
[2016-11-08] MEDS: oxyCODONE 5 MG Tab PO PRN ×2 (11:27→15:26)
[2016-11-08] MEDS: Insulin Aspart 100 Units/ML 3 ML Pen SUBCUT SCH ×2 (13:07→17:45)
[2016-11-08] MEDS: Ferrous Sulfate 325 MG Tab PO SCH ×2 (13:08→17:45)
[2016-11-08] MEDS: Heparin Sodium 5,000 Units/ML Vial SUBCUT SCH ×2 (15:25→21:07)
[2016-11-08] MEDS ORDERED: Insulin Detemir 100 Units/ML 3 ML Pen SUBCUT SCH (21:00)
[2016-11-08] MEDS: Oxybutynin 5 MG Tab.ER PO SCH (21:07)
[2016-11-08] MEDS: Pregabalin 75 MG Cap PO SCH (21:07)
[2016-11-08] MEDS: rOPINIRole 2 MG Tab PO SCH (21:07)
[2016-11-08] MEDS: Insulin Detemir 100 Units/ML 3 ML Pen SUBCUT SCH (21:07)
[2016-11-09] MEDS: Piperacillin/Tazobactam 3.375 GM in Sodium Chloride 0.9% 100 ML IV SCH ×4 (02:46→20:46)
[2016-11-09] MEDS: Sodium Chloride 0.9% 10 ML Syringe FLUSH PRN ×2 (02:46→03:15)
[2016-11-09] MEDS: Acetaminophen/oxyCODONE 325-5 MG Tab PO PRN ×4 (02:50→19:45)
[2016-11-09] MEDS: oxyCODONE 5 MG Tab PO PRN ×4 (02:51→19:46)
[2016-11-09] MEDS: Ibuprofen 400 MG Tab PO PRN ×2 (03:22→21:55)
[2016-11-09] MEDS: Pantoprazole 40 MG Tab.CR PO SCH (06:01)
[2016-11-09] MEDS: Heparin Sodium 5,000 Units/ML Vial SUBCUT SCH ×3 (06:01→21:56)
[2016-11-09 06:58] LABS: CHLORIDE,CL 109 mmol/L (101-111); SODIUM,NA 138 mmol/L (135-145)
[2016-11-09] MEDS: Insulin Aspart 100 Units/ML 3 ML Pen SUBCUT SCH ×3 (09:17→17:38)
[2016-11-09] MEDS: cycloSPORINE Ophth Drops U/D Box of 30 EYEBOTH SCH ×2 (09:17→20:54)
[2016-11-09] MEDS: DULoxetine 30 MG Cap PO SCH (09:18)
[2016-11-09] MEDS: Ferrous Sulfate 325 MG Tab PO SCH ×3 (09:18→17:38)
[2016-11-09] MEDS: Lisinopril 5 MG Tab PO SCH (09:18)
[2016-11-09] MEDS: Ascorbic Acid 500 MG Tab PO SCH ×3 (09:18→20:52)
[2016-11-09] MEDS: Multivitamins,Therapeutic Tab PO SCH (09:18)
[2016-11-09] MEDS: Calcium Carbonate/Vitamin D3 1250 MG-200 Unit Tab PO SCH (09:18)
--- NOTE | 2016-11-09 09:34 | PCM.PN ---
- General Info Date of Service: 11/09/16 Admission Dx/Problem (Free Text): Admission Diagnosis/Problem Admission Diagnosis/Problem Cellulitis Functional Status: Reports: Pain Controlled (has chronic pain and stiffness all over, in joints) - Review of Systems General: Denies: Fever Pulmonary: Denies: Shortness of Breath Cardiovascular: Denies: Chest Pain Gastrointestinal: Denies: Abdominal Pain Musculoskeletal: Reports: Joint Pain Neurological: Denies: Confusion - Patient Data Vitals - Most Recent: Last Vital Signs Temp 36.4 C 11/09/16 07:00 Pulse 81 11/09/16 07:00 Resp 20 11/09/16 07:00 BP 113/64 11/09/16 09:18 Pulse Ox 95 11/09/16 07:00 Weight - Most Recent: 126.28 kg I&O - Last 24 Hours: Intake & Output 11/08/16 11/09/16 11/09/16 22:59 06:59 14:59 Intake Total 538 343 Balance 538 343 Lab Results Last 24 Hours: Laboratory Results - last 24 hr 11/08/16 11/08/16 11/08/16 Range/Units 10:46 17:02 21:01 WBC (5.0-10.0) 10^3/uL RBC (4.2-5.4) 10^6/uL Hgb (12.0-16.0) g/dL Hct (37.0-47.0) % MCV (80-100) fL MCH (27.0-34.0) pg MCHC (33.0-35.0) g/dL Plt Count (150-450) 10^3/uL Neut % (Auto) (42.2-75.2) % Lymph % (Auto) (20.5-50.1) % Swain % (Auto) (2-8) % Eos % (Auto) (1.0-3.0) % Baso % (Auto) (0.0-1.0) % Sodium (135-145) mmol/L Potassium (3.6-5.0) mmol/L Chloride (101-111) mmol/L Carbon Dioxide (21.0-31.0) mmol/L Anion Gap BUN (7-18) mg/dL Creatinine (0.6-1.3) mg/dL Est Cr Clr Drug Dosing mL/min Estimated GFR (MDRD) Glucose (74-105) mg/dL POC Glucose 193 H 263 H 296 H (70-105) mg/dl Calcium (8.4-10.2) mg/dl 11/09/16 11/09/16 11/09/16 Range/Units 06:05 06:05 07:45 WBC 4.0 L (5.0-10.0) 10^3/uL RBC 4.32 (4.2-5.4) 10^6/uL Hgb 12.5 (12.0-16.0) g/dL Hct 40.0 (37.0-47.0) % MCV 92.6 (80-100) fL MCH 28.9 (27.0-34.0) pg MCHC 31.3 L (33.0-35.0) g/dL Plt Count 286 (150-450) 10^3/uL Neut % (Auto) 54.1 (42.2-75.2) % Lymph % (Auto) 34.3 (20.5-50.1) % Swain % (Auto) 4.5 (2-8) % Eos % (Auto) 6.8 H (1.0-3.0) % Baso % (Auto) 0.3 (0.0-1.0) % Sodium 138 (135-145) mmol/L Potassium 4.0 (3.6-5.0) mmol/L Chloride 109 (101-111) mmol/L Carbon Dioxide 21.0 (21.0-31.0) mmol/L Anion Gap 12.0 BUN 13 (7-18) mg/dL Creatinine 1.0 (0.6-1.3) mg/dL Est Cr Clr Drug Dosing 73.93 mL/min Estimated GFR (MDRD) > 60 Glucose 155 H (74-105) mg/dL POC Glucose 151 H (70-105) mg/dl Calcium 8.5 (8.4-10.2) mg/dl Med Orders - Current: Current Medications Acetaminophen (Tylenol) 650 mg PO Q4H PRN PRN Reason: Pain (Mild 1-3)/fever Albuterol (Proventil Neb Soln) 2.5 mg NEB QIDRT PRN PRN Reason: Wheezing Ascorbic Acid (Vitamin C) 250 mg PO TID NELLY Last Admin: 11/09/16 09:18 Dose: 250 mg Calcium Carbonate (Calcium Carbonate/Vitamin D 1250 Mg-200 Unit) 1 tab PO DAILY [facility] Last Admin: 11/09/16 09:18 Dose: 1 tab Cyclosporine (Restasis) 0 each EYEBOTH BID [facility] Last Admin: 11/09/16 09:17 Dose: 1 drop Duloxetine HCl (Cymbalta) 60 mg PO DAILY [facility] Last Admin: 11/09/16 09:18 Dose: 60 mg Ferrous Sulfate (Ferrous Sulfate) 325 mg PO TIDMEALS [facility] Last Admin: 11/09/16 09:18 Dose: 325 mg Heparin Sodium (Porcine) (Heparin Sodium) 5,000 units SUBCUT Q8HR [facility] Last Admin: 11/09/16 06:01 Dose: 5,000 units Piperacillin Sod/Tazobactam (Sod 3.375 gm/ Sodium Chloride) 100 mls @ 200 mls/ hr IV Q6H [facility] Last Admin: 11/09/16 09:17 Dose: 200 mls/hr Vancomycin HCl 1.25 gm/ Sodium (Chloride) 250 mls @ 166.667 mls/hr IV Q8H [facility] Last Admin: 11/09/16 03:14 Dose: 166.667 mls/hr Ibuprofen (Motrin) 400 mg PO Q4H PRN PRN Reason: pain Last Admin: 11/09/16 03:22 Dose: 400 mg Insulin Aspart (Novolog) 0 unit SUBCUT TIDAC [facility] PRN Reason: Protocol Last Admin: 11/09/16 09:17 Dose: 2 units Insulin Detemir (Levemir) 30 unit SUBCUT BEDTIME [facility] Last Admin: 11/08/16 21:07 Dose: 30 units Lisinopril (Prinivil) 2.5 mg PO DAILY [facility] Last Admin: 11/09/16 09:18 Dose: 2.5 mg Multivitamins (Thera) 1 each PO DAILY [facility] Last Admin: 11/09/16 09:18 Dose: 1 each Ondansetron HCl (Zofran Odt) 4 mg PO Q6H PRN PRN Reason: nausea, able to take PO Oxybutynin Chloride (Oxybutynin Er) 5 mg PO BEDTIME [facility] Last Admin: 11/08/16 21:07 Dose: 5 mg Oxycodone HCl (Oxycodone) 5 mg PO Q4H PRN PRN Reason: PAIN Last Admin: 11/09/16 02:51 Dose: 5 mg Oxycodone/Acetaminophen (Percocet 325-5 Mg) 1 tab PO Q4H PRN PRN Reason: Pain Last Admin: 11/09/16 02:50 Dose: 1 tab Pantoprazole Sodium (Protonix) 40 mg PO ACBREAKFAST NELLY Last Admin: 11/09/16 06:01 Dose: 40 mg Pregabalin (Lyrica) 75 mg PO BEDTIME [facility] Last Admin: 11/08/16 21:07 Dose: 75 mg Ropinirole HCl (Requip) 1 mg PO BEDTIME [facility] Last Admin: 11/08/16 21:07 Dose: 1 mg Sodium Chloride (Saline Flush) 10 ml FLUSH ASDIRECTED PRN PRN Reason: Keep Vein Open Last Admin: 11/09/16 03:15 Dose: 10 ml Vancomycin HCl (Pharmacy To Dose - Vancomycin) 1 dose .XX ASDIRECTED NELLY Zolpidem Tartrate (Ambien) 5 mg PO BEDTIME PRN PRN Reason: Sleep Discontinued Medications Diphenhydramine HCl (Benadryl) 50 mg PO ONETIME ONE Stop: 11/08/16 04:18 Last Admin: 11/08/16 04:24 Dose: 50 mg Hydromorphone HCl (Dilaudid) 1 mg IVPUSH ONETIME ONE Stop: 11/08/16 03:40 Last Admin: 11/08/16 04:06 Dose: 1 mg Hydromorphone HCl (Dilaudid) 1 mg IM ONETIME ONE Stop: 11/08/16 04:18 Last Admin: 11/08/16 04:25 Dose: 1 mg Sodium Chloride (Normal Saline) 1,000 mls @ 150 mls/hr IV .BOLUS ONE Stop: 11/08/16 10:16 Last Admin: 11/08/16 04:03 Dose: 150 mls/hr Vancomycin HCl 1 gm/ Sodium (Chloride) 250 mls @ 167 mls/hr IV ONETIME ONE Stop: 11/08/16 05:07 Last Admin: 11/08/16 04:04 Dose: 167 mls/hr Insulin Detemir (Levemir) 20 unit SUBCUT BEDTIME NELLY Non-Formulary Medication (Insulin Lispro [Humalog]) 10 units SQ TIDAC PRN PRN Reason: Blood Glucose Ondansetron HCl (Zofran) 4 mg IV ONETIME ONE Stop: 11/08/16 03:39 Last Admin: 11/08/16 04:05 Dose: 4 mg - Exam General: Alert, Oriented Neck: Supple Lungs: Clear to Auscultation, Normal Respiratory Effort Cardiovascular: Regular Rate, Regular Rhythm Extremities: Pedal Edema (b/l 1 +) Skin: Other (left posterior calf wound) - Problem List & Annotations (1) Cellulitis SNOMED Code(s): 845583392 Code(s): L03.90 - CELLULITIS, UNSPECIFIED Status: Acute Current Visit: Yes Qualifiers: Site of cellulitis: extremity Site of cellulitis of extremity: lower extremity Laterality: left Qualified Code(s): L03.116 - Cellulitis of left lower limb (2) Chronic pain SNOMED Code(s): 48685738 Code(s): G89.29 - OTHER CHRONIC PAIN Status: Acute Current Visit: Yes Qualifiers: Chronic pain type: chronic pain syndrome Qualified Code(s): G89.4 - Chronic pain syndrome (3) Diabetes mellitus SNOMED Code(s): 33132059 Code(s): E11.9 - TYPE 2 DIABETES MELLITUS WITHOUT COMPLICATIONS Status: Acute Current Visit: Yes (4) Rheumatoid arthritis SNOMED Code(s): 19198548 Code(s): M06.9 - RHEUMATOID ARTHRITIS, UNSPECIFIED Status: Acute Current Visit: Yes - Problem List Review Problem List Initiated/Reviewed/Updated: Yes - My Orders Last 24 Hours: My Active Orders 11/08/16 08:30 Glucose [Blood Glucose Check, Bedside] [RC] QIDACANDBED Vancomycin Pharmacy to Dose [Pharmacy to Dose - Vancomycin] 1 dose .XX ASDIRECTED cycloSPORINE [Restasis] 0 each EYEBOTH BID 11/08/16 08:31 Oxygen Therapy [RC] PRN Up ad Janeth [RC] ASDIRECTED VTE/DVT Education [RC] PER UNIT ROUTINE Vital Signs [RC] Q4H Acetaminophen [Tylenol] 650 mg PO Q4H PRN Ondansetron [Zofran ODT] 4 mg PO Q6H PRN Sodium Chloride 0.9% [Saline Flush] 10 ml FLUSH ASDIRECTED PRN Zolpidem [Ambien] 5 mg PO BEDTIME PRN Peripheral IV Insertion Adult [OM.PC] Routine Saline Lock Insert [OM.PC] Routine 11/08/16 08:32 Peripheral IV Care [RC] 11/08/16 09:00 Ascorbic Acid [Vitamin C] 250 mg PO TID Calcium Carbonate/Vitamin D3 [Calcium Carbonate/Vitamin D 1250 MG-200 Unit] 1 tab PO DAILY DULoxetine [Cymbalta] 60 mg PO DAILY Lisinopril [Prinivil] 2.5 mg PO DAILY Multivitamins,Therapeutic [Thera] 1 each PO DAILY Piperacillin/Tazobactam [Zosyn] 3.375 gm Sodium Chloride 0.9% [Normal Saline] 100 ml IV Q6H 11/08/16 09:18 Wound Care [RC] Q8H 11/08/16 10:00 Pantoprazole [ProTONIX] 40 mg PO ACBREAKFAST 11/08/16 10:08 oxyCODONE 5 mg PO Q4H PRN 11/08/16 11:00 Insulin Aspart [NovoLOG] See Protocol SUBCUT TIDAC Vancomycin 1.25 gm Sodium Chloride 0.9% [Normal Saline] 250 ml IV Q8H 11/08/16 12:00 Ferrous Sulfate 325 mg PO TIDMEALS 11/08/16 14:00 Heparin Sodium 5,000 units SUBCUT Q8HR 11/08/16 21:00 Insulin Detemir [Levemir] 30 unit SUBCUT BEDTIME Oxybutynin [Oxybutynin ER] 5 mg PO BEDTIME Pregabalin [Lyrica] 75 mg PO BEDTIME rOPINIRole [Requip] 1 mg PO BEDTIME 11/09/16 10:30 VANCOMYCIN TROUGH [CHEM] Routine - Plan Plan:: The patient is a 41-year-old with a history of chronic pain, rheumatoid arthritis on immunosuppressants. She has a history of MRSA abscess requiring surgery and IV vancomycin antibiotic. It appeared that the site of the wound was improving but the but then started to worsen with increased redness, drainage, pain. #1 left cellulitis with history of MRSA abscess The patient was on oral clindamycin but ran out of it a few days prior to admission blood cultures: pending Wound cx: mod gram neg rods Treat with Zosyn and vancomycin IV Wound care with Xeroform start lymphedema wrap for swelling #2 pain control with oxycodone, Motrin, IV morphine as needed #3 history of rheumatoid arthritis Will hold the immunosuppressants #4 diabetes Treat with Humalog and Levemir combination Follow blood sugars use supplemental insulin as needed #5 the patient was complaining of left calf pain Will obtain ultrasound rule out DVT #6 DVT prophylaxis will be with subcutaneous heparin
[2016-11-09] MEDS: rOPINIRole 2 MG Tab PO SCH (20:50)
[2016-11-09] MEDS: Pregabalin 75 MG Cap PO SCH (20:53)
[2016-11-09] MEDS: Oxybutynin 5 MG Tab.ER PO SCH (20:53)
[2016-11-09] MEDS: Insulin Detemir 100 Units/ML 3 ML Pen SUBCUT SCH (21:15)
[2016-11-09] MEDS: Zolpidem 5 MG Tab PO PRN (21:56)
[2016-11-10] MEDS: Piperacillin/Tazobactam 3.375 GM in Sodium Chloride 0.9% 100 ML IV SCH ×4 (03:03→21:34)
[2016-11-10] MEDS: Acetaminophen/oxyCODONE 325-5 MG Tab PO PRN ×5 (03:14→21:30)
[2016-11-10] MEDS: oxyCODONE 5 MG Tab PO PRN ×5 (03:15→21:31)
[2016-11-10] MEDS: Pantoprazole 40 MG Tab.CR PO SCH (06:06)
[2016-11-10] MEDS: Heparin Sodium 5,000 Units/ML Vial SUBCUT SCH ×3 (06:07→22:00)
[2016-11-10] MEDS: Calcium Carbonate/Vitamin D3 1250 MG-200 Unit Tab PO SCH (08:50)
[2016-11-10] MEDS: Ferrous Sulfate 325 MG Tab PO SCH ×3 (08:50→17:45)
[2016-11-10] MEDS: Lisinopril 5 MG Tab PO SCH (08:50)
[2016-11-10] MEDS: Ascorbic Acid 500 MG Tab PO SCH ×3 (08:52→20:28)
[2016-11-10] MEDS: Multivitamins,Therapeutic Tab PO SCH (08:54)
[2016-11-10] MEDS: DULoxetine 30 MG Cap PO SCH (08:55)
[2016-11-10] MEDS: cycloSPORINE Ophth Drops U/D Box of 30 EYEBOTH SCH ×2 (08:56→20:30)
[2016-11-10] MEDS: Insulin Aspart 100 Units/ML 3 ML Pen SUBCUT SCH ×3 (08:56→17:57)
[2016-11-10] MEDS: Sodium Chloride 0.9% 10 ML Syringe FLUSH PRN (10:28)
[2016-11-10] MEDS: Ondansetron 4 MG Tab.DIS PO PRN ×2 (12:17→17:46)
[2016-11-10] MEDS: rOPINIRole 2 MG Tab PO SCH (20:27)
[2016-11-10] MEDS: Oxybutynin 5 MG Tab.ER PO SCH (20:29)
[2016-11-10] MEDS: Pregabalin 75 MG Cap PO SCH (20:29)
[2016-11-10] MEDS: Zolpidem 5 MG Tab PO PRN (20:34)
[2016-11-10] MEDS ORDERED: diphenhydrAMINE 25 MG Tab PO ONE (21:14)
[2016-11-10] MEDS ORDERED: Acetaminophen 325 MG Tab PO STA (21:14)
[2016-11-10] MEDS: Insulin Detemir 100 Units/ML 3 ML Pen SUBCUT SCH (21:32)
[2016-11-11] MEDS: Piperacillin/Tazobactam 3.375 GM in Sodium Chloride 0.9% 100 ML IV SCH ×4 (02:46→22:06)
[2016-11-11] MEDS: Ondansetron 4 MG Tab.DIS PO PRN ×3 (04:14→18:23)
[2016-11-11] MEDS: oxyCODONE 5 MG Tab PO PRN ×4 (04:15→21:53)
[2016-11-11] MEDS: Acetaminophen/oxyCODONE 325-5 MG Tab PO PRN ×4 (04:16→21:52)
[2016-11-11] MEDS: Heparin Sodium 5,000 Units/ML Vial SUBCUT SCH ×3 (05:54→21:54)
[2016-11-11] MEDS: Pantoprazole 40 MG Tab.CR PO SCH (05:54)
--- NOTE | 2016-11-11 07:46 | PN ---
DATE: 11/10/2016 SUBJECTIVE: Ms. Sanon is a 41-year-old female, who has a history of an MRSA abscess on the back of the left calf. She states this began as far back as August, when she began having lower left leg and calf pain. Original workup was negative. Eventually, they did find an abscess with further investigation. It was incised and drained. Apparently, the wound on the anterior leg has healed, but the wound on the posterior aspect of the calf remains open. She presented with redness and tenderness with mild cellulitis around the wound. Wound culture had shown the growth of 2 organisms. The first is a moderate growth of E. coli which is sensitive to Zosyn, which she is receiving. The second organism is a light growth of a beta-hemolytic Gram-positive cocci, probably a Staphylococcus aureus, but the final ID and sensitivity will not be available until the morning of November 11. She is receiving vanco and her next vanco trough level will be tomorrow morning. Once we have the final sensitivity, we will be able to form a plan for ongoing therapy, depending on the antibiotics chosen. Otherwise, she has general aches and pains due to her longstanding history of rheumatoid arthritis which was diagnosed when she was a teenager. She is currently on Enbrel and prednisone. 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 There has been no fever or chills. Review of her vital signs show blood pressure and pulse to be stable. She has been afebrile throughout the admission, but this also may be a reflection of her immune-compromised state. She takes in adequate fluids. She is voiding and moving her bowels. She is tolerating her diet, although her appetite seems to be poor at times. She also stated that she is not sleeping well, and she will be given Benadryl and Tylenol at bedtime tonight to see if this helps. We would like to avoid the use of any benzodiazepines or sleeping pills because of her need for opioid pain medications. Blood sugars are being monitored and have been fairly well controlled with only an occasional higher sugar for about 200, depending on intake. CBC today showed a white count of 3.8, platelets were normal, hemoglobin and hematocrit were stable at 12 and 39. BMP showed normal electrolytes with a blood sugar of 154, BUN and creatinine 13 and 1.1, with a GFR of 54. One set of blood cultures remained with no growth after 3 days. PHYSICAL EXAMINATION: General: She is lying flat on the bed. She seems somewhat depressed. She participates in the visit, but is very subdued. Vital Signs: Blood pressure 114/67, pulse 96, respiratory rate 18, oxygen saturation 96% on room air. She is afebrile. HEENT: Unremarkable. ENT was clear. Chest: Showed clear with diminished bilateral breath sounds. Heart: Showed regular rate and rhythm. Abdomen: Obese, soft, benign, nontender. LEFT LEG: The wound was not examined as nursing students had been in and done a complete rewrap of the dressings. We have asked that the dressings be left open tomorrow morning, so that the charge nurse and I can examine the wound. PLAN: We will wait for the final JHONNY on the 2nd organism before deciding on final antibiotic choices. [facility] /[id number] KORINA
[2016-11-11] MEDS: Insulin Aspart 100 Units/ML 3 ML Pen SUBCUT SCH ×3 (09:49→17:44)
[2016-11-11] MEDS: Multivitamins,Therapeutic Tab PO SCH (10:16)
[2016-11-11] MEDS: DULoxetine 30 MG Cap PO SCH (10:16)
[2016-11-11] MEDS: Ascorbic Acid 500 MG Tab PO SCH ×3 (10:16→22:08)
[2016-11-11] MEDS: Calcium Carbonate/Vitamin D3 1250 MG-200 Unit Tab PO SCH (10:18)
[2016-11-11] MEDS: Lisinopril 5 MG Tab PO SCH (10:18)
[2016-11-11] MEDS: Sodium Chloride 0.9% 10 ML Syringe FLUSH PRN ×3 (10:20→23:27)
[2016-11-11] MEDS: cycloSPORINE Ophth Drops U/D Box of 30 EYEBOTH SCH ×2 (10:32→22:10)
[2016-11-11] MEDS: Ferrous Sulfate 325 MG Tab PO SCH ×3 (11:29→17:44)
[2016-11-11] MEDS ORDERED: Ondansetron 4 MG Tab.DIS PO ONE (18:14)
[2016-11-11] MEDS: Pregabalin 75 MG Cap PO SCH (21:51)
[2016-11-11] MEDS: Oxybutynin 5 MG Tab.ER PO SCH (21:51)
[2016-11-11] MEDS: Zolpidem 5 MG Tab PO PRN (21:52)
[2016-11-11] MEDS: Insulin Detemir 100 Units/ML 3 ML Pen SUBCUT SCH (21:57)
[2016-11-11] MEDS: rOPINIRole 2 MG Tab PO SCH (22:07)
--- NOTE | 2016-11-11 23:07 | PN ---
DATE: 11/11/2016 HISTORY OF PRESENT ILLNESS: Jamilah is a 41-year-old female with a long history of rheumatoid arthritis, who presents with an open wound on the posterior left lower leg. She is currently being treated with IV Zosyn and vancomycin. Vancomycin trough level was repeated this morning, it was 17.5. We have received the final culture and sensitivity on the second organism, it is sensitive Staph aureus. The E. coli was sensitive to most antibiotics tested including Zosyn itself. The Staph aureus is resistant to azithromycin and penicillin, but sensitive to oxacillin. Both organisms are sensitive to Cipro and we could consider switching to fluoroquinolones for improved coverage. Review of her clinical data shows that she is taking in fluids. She is voiding, has not moved her bowels. Appetite is extremely poor. Vital signs are stable and she has remained afebrile. Review of her blood sugars show fairly good control. Every time we have been in the room, Jamilah is in bed. We have not seen her out of bed or walking. She states her rheumatoid arthritis bothers her. We spoke about her mood and affect. She denied any depression. She said she is not eating because of continuous nausea, which she attributes to the pain from her arthritis. We did agree to schedule some preprandial Zofran to see if this will help. We also strongly encouraged her to get out of bed. Evening nurse said that her oxygen saturations could be higher and we pointed out that she needs to get up, sit up, do some deep breathing, and we will get her an incentive spirometer. Her weight is 278, and lying continuously flat in the bed will only contribute to formation of atelectasis and other complications. We did talk to Jamilah about this and we would like to see her get more active this weekend. PHYSICAL EXAMINATION: General: She is lying in bed, voicing no new complaints. Vital Signs: Blood pressure 109/50, pulse 99, respiratory rate 20, oxygen saturation 90% on room air, and she is afebrile. HEENT: Unremarkable. ENT was clear. Chest: Showed diminished bilateral breath sounds. Heart: Showed regular rate and rhythm. Abdomen: Obese and benign. Extremities: Examination of the legs showed the healing ulceration on the back of the left calf. We have changed the wound care for the left leg. Up until now, it had Xeroform, Telfa, and wrappings had been placed on leg. This is probably keeping the wound warm and moist, and we have asked that the dressings be removed and that the leg be left open to air during the day, she can bathe, it can be cleaned daily with normal saline and patted dry. If the wound is dry, probably will have a better chance of healing. We have scheduled Zofran before meals to help with her ongoing nausea so that, hopefully, her appetite will improve. We did offer her also steroids because of her significant pain from her rheumatoid arthritis. She states that when she is on antibiotic, she prefers to not take steroids to interfere with the work of the antibiotics. If she changes her mind, we certainly can give her something more for comfort. We will continue the present management and review the JHONNY again to see if changes should be made in her antibiotic coverage. We will be able to place her in swing bed starting tomorrow. She probably will not be eligible for home health as she really is not homebound. She certainly cannot care for this wound alone as she really cannot reach it. Hopefully, changes in removal of the dressings and possible antibiotic changes will help. [facility] /[id number]
[2016-11-12] MEDS: Acetaminophen/oxyCODONE 325-5 MG Tab PO PRN ×3 (03:22→13:58)
[2016-11-12] MEDS: oxyCODONE 5 MG Tab PO PRN ×3 (03:23→13:58)
[2016-11-12] MEDS: Sodium Chloride 0.9% 10 ML Syringe FLUSH PRN ×2 (03:24→04:08)
[2016-11-12] MEDS: Piperacillin/Tazobactam 3.375 GM in Sodium Chloride 0.9% 100 ML IV SCH ×2 (03:25→10:19)
[2016-11-12] MEDS: Pantoprazole 40 MG Tab.CR PO SCH (06:26)
[2016-11-12] MEDS: Heparin Sodium 5,000 Units/ML Vial SUBCUT SCH ×2 (06:26→14:03)
[2016-11-12] MEDS: Ferrous Sulfate 325 MG Tab PO SCH ×2 (07:40→13:58)
[2016-11-12] MEDS: Ondansetron 4 MG Tab.DIS PO PRN (07:54)
[2016-11-12] MEDS: Insulin Aspart 100 Units/ML 3 ML Pen SUBCUT SCH ×2 (08:38→11:38)
[2016-11-12] MEDS: Lisinopril 5 MG Tab PO SCH (10:18)
[2016-11-12] MEDS: DULoxetine 30 MG Cap PO SCH (10:18)
[2016-11-12] MEDS: Calcium Carbonate/Vitamin D3 1250 MG-200 Unit Tab PO SCH (10:18)
[2016-11-12] MEDS: Ascorbic Acid 500 MG Tab PO SCH ×2 (10:19→14:03)
[2016-11-12] MEDS: cycloSPORINE Ophth Drops U/D Box of 30 EYEBOTH SCH (10:19)
[2016-11-12] MEDS: Multivitamins,Therapeutic Tab PO SCH (10:19)
--- NOTE | 2016-11-12 13:16 | PCM.DCSUM1 ---
Discharge Summary - Hospital Course Free Text/Narrative:: The patient is a 41-year-old lady with a history of Diabetes 2, rheumatoid arthritis, on chronic immunosuppression including Enbrel and prednisone. The patient has a history of MRSA colonization,She was noted to have on abscess on the left Lower LE with MRSA.She underwent surgery about 5 weeks prior to this admission. She was treated with IV vancomycin and was discharge on oral clindamycin,.for a while it seemed that the wound is healing well but in the past the 2 weeks the wound has been enlarging.,There is increased drainage. Associated with moderate to severe pain and redness.She also ran out of Abx, was admitted with Cellulitis of left lower extremitity and was treated with IV vancomycin and Zosyn. Culture of the wound grew E. Coli and Staph Aureus (MSSA) . she is doing well and will be going home on oral Augmentin X 10 days course. she is advised to Follow with PMD in 3-4 days after the discharge and also wound clinic - Discharge Data Discharge Date: 11/12/16 Discharge Disposition: Home, Self-Care 01 Condition: Good - Discharge Diagnosis/Problem(s) (1) Cellulitis SNOMED Code(s): 790212788 ICD Code: L03.90 - CELLULITIS, UNSPECIFIED Status: Acute Current Visit: Yes Qualifiers: Site of cellulitis: extremity Site of cellulitis of extremity: lower extremity Laterality: left Qualified Code(s): L03.116 - Cellulitis of left lower limb (2) Wound of left leg SNOMED Code(s): 283292525, 742182117 ICD Code: S81.802A - UNSPECIFIED OPEN WOUND, LEFT LOWER LEG, INITIAL ENCOUNTER Status: Acute Current Visit: Yes Qualifiers: Encounter type: subsequent encounter Qualified Code(s): S81.802D - Unspecified open wound, left lower leg, subsequent encounter (3) Cellulitis of left lower limb SNOMED Code(s): 337666671 ICD Code: L03.116 - CELLULITIS OF LEFT LOWER LIMB Status: Acute Current Visit: Yes - Patient Instructions Diet: Regular Diet as Tolerated Activity: As Tolerated Driving: May Drive Today Showering/Bathing: May Shower (cover the wound while showering) Wound/Incision Care: Keep Operative Site/Wound Site Clean and Dry Notify Provider of: Fever, Swelling and Redness, Drainage Other/Special Instructions: The patient is a 41-year-old lady with a history of rheumatoid arthritis, on chronic immunosuppression including Enbrel and prednisone. The patient has a history of MRSA colonization,She was noted to have on abscess on the left Lower LE with MRSA.She underwent surgery about 5 weeks prior to this admission. She was treated with IV vancomycin and was discharge on oral clindamycin,.for a while it seemed that the wound is healing well but in the past the 2 weeks the wound has been enlarging.,There is increased drainage. Associated with moderate to severe pain and redness.She also ran out of Abx, was admitted with Cellulitis of left lower extremitity and was treated with IV vancomycin and Zosyn. Culture of the wound grew E. Coli and Staph Aureus (MSSA). she is doing well and will be going home on oral Augmentin X 10 days course. she is advised to Follow with PMD in 3-4 days after the discharge and also wound clinic. Keep wound dry and cover while showering - Discharge Plan Prescriptions/Med Rec: Amoxicillin/Potassium Clav [Augmentin 875-125 Tablet] 1 each PO Q12H 10 Days # 20 tablet Home Medications: Home Meds Ascorbic Acid [Vitamin C] 250 mg PO TID 03/08/14 [History] Ibuprofen [Motrin] 600 mg PO Q8H PRN 03/08/14 [History] predniSONE 5 mg PO DAILY 03/08/14 [History] Ferrous Sulfate [Iron] 325 mg PO TID 09/13/14 [History] Pantoprazole [Pantoprazole Sodium] 40 mg PO DAILY 09/13/14 [History] Albuterol [Proventil Neb Soln] 2.5 mg NEB QIDRT PRN 04/27/15 [History] DULoxetine [Cymbalta] 60 mg PO DAILY 08/07/15 [History] Etanercept [Enbrel] 25 mg IM .TWICE A WEEK 08/07/15 [History] Insulin Glarg,Human.Rec.Analog [LantUS Solostar] 35 units SQ BEDTIME 08/07/15 [ History] rOPINIRole [Requip] 1 mg PO BEDTIME 08/13/15 [History] Multivitamin [Multivitamins] 1 each PO DAILY 09/20/15 [History] oxyCODONE HCl/Acetaminophen [Endocet 10-325 mg Tablet] 1 each PO Q4H PRN [History] Lisinopril [Prinivil] 2.5 mg PO DAILY 04/14/16 [History] Oxybutynin [Oxybutynin ER] 5 mg PO BEDTIME 04/14/16 [History] Pregabalin [Lyrica] 75 mg PO BEDTIME 04/14/16 [History] cycloSPORINE [Restasis] 1 drop EYEBOTH ASDIRECTED 04/14/16 [History] Insulin Aspart [NovoLOG] 30 units INJECT BID 05/16/16 [History] Amoxicillin/Potassium Clav [Augmentin 875-125 Tablet] 1 each PO Q12H 10 Days # 20 tablet 11/12/16 [Rx] Forms: ED Department Discharge Referrals: PCP,Unobtain [Ordering Only Provider] - - Discharge Summary/Plan Comment DC Time >30 min.: Yes Discharge Summary/Plan Comment: The patient is a 41-year-old with a history of chronic pain, Diadetes 2, rheumatoid arthritis on immunosuppressants. She has a history of MRSA abscess requiring surgery and IV vancomycin antibiotic. It appeared that the site of the wound is improving but the but then started to worsen with increased redness, drainage, pain. Ipression and Plan: #1 left LE cellulitis with history of MRSA abscess -Wound culture sowed e. coli and staph Aureus ( MSSA) - She was treated with Zosyn and vancomycin IV -She is doing well and will go home on Augmentin 875 mg X 10 days course -Will follow with PMD in 3-4 days #2 pain control with oxycodone, as needed #3 history of rheumatoid arthritis Will resume immunosuppressants and follow with Replenishment Buyer #4 diabetes Continue home medication Humalog and Levemir combination -check blood sugar 2-3 times a day and follow with PMD for any adjustment of Insulin #5. Disposition: will be going home today - General Info Date of Service: 11/12/16 Admission Dx/Problem (Free Text: Admission Diagnosis/Problem Admission Diagnosis/Problem Left LE Cellulitis Subjective Update: she is doing well and the wound is dry and has no fever or chill Functional Status: Reports: Pain Controlled, Tolerating Diet, Ambulating, Urinating - Review of Systems General: Reports: Appetite (goood). Denies: Fever, Chills HEENT: Denies: Headaches, Sinus Congestion, Sore Throat, Visual Changes Pulmonary: Denies: Shortness of Breath, Cough, Sputum, Wheezing Cardiovascular: Denies: Chest Pain, Dyspnea on Exertion, Edema Gastrointestinal: Denies: Abdominal Pain, Difficulty Swallowing, Nausea, Vomiting Genitourinary: Denies: Dysuria, Burning, Urgency, Flank Pain Musculoskeletal: Reports: Leg Pain. Denies: Neck Pain, Shoulder Pain Skin: Reports: Other (Left LE wound). Denies: Cyanosis, Diaphoresis Neurological: Denies: Confusion, Headache, Tingling, Tremors Psychiatric: Denies: Confusion, Anxiety - Patient Data Vitals - Most Recent: Last Vital Signs Temp 36.4 C 11/12/16 08:32 Pulse 88 11/12/16 08:32 Resp 20 11/12/16 08:32 BP 109/55 L 11/12/16 10:18 Pulse Ox 99 11/12/16 08:32 Weight - Most Recent: 126.28 kg I&O - Last 24 hours: Intake & Output 11/11/16 11/12/16 11/12/16 22:59 06:59 14:59 Intake Total 470 328 Balance 470 328 Lab Results - Last 24 hrs: Laboratory Results - last 24 hr 11/11/16 11/11/16 11/12/16 Range/Units 17:06 21:30 07:46 POC Glucose 154 H 156 H 131 H (70-105) mg/dl 11/12/16 Range/Units 11:10 POC Glucose 148 H (70-105) mg/dl Med Orders - Current: Current Medications Acetaminophen (Tylenol) 650 mg PO Q4H PRN PRN Reason: Pain (Mild 1-3)/fever Albuterol (Proventil Neb Soln) 2.5 mg NEB QIDRT PRN PRN Reason: Wheezing Ascorbic Acid (Vitamin C) 250 mg PO TID [facility] Last Admin: 11/12/16 10:19 Dose: 250 mg Calcium Carbonate (Calcium Carbonate/Vitamin D 1250 Mg-200 Unit) 1 tab PO DAILY [facility] Last Admin: 11/12/16 10:18 Dose: 1 tab Cyclosporine (Restasis) 0 each EYEBOTH BID [facility] Last Admin: 11/12/16 10:19 Dose: 1 drop Duloxetine HCl (Cymbalta) 60 mg PO DAILY [facility] Last Admin: 11/12/16 10:18 Dose: 60 mg Ferrous Sulfate (Ferrous Sulfate) 325 mg PO TIDMEALS [facility] Last Admin: 11/12/16 07:40 Dose: 325 mg Heparin Sodium (Porcine) (Heparin Sodium) 5,000 units SUBCUT Q8HR [facility] Last Admin: 11/12/16 06:26 Dose: 5,000 units Piperacillin Sod/Tazobactam (Sod 3.375 gm/ Sodium Chloride) 100 mls @ 200 mls/ hr IV Q6H [facility] Last Admin: 11/12/16 10:19 Dose: 200 mls/hr Ibuprofen (Motrin) 400 mg PO Q4H PRN PRN Reason: pain Last Admin: 11/09/16 21:55 Dose: 400 mg Insulin Aspart (Novolog) 0 unit SUBCUT TIDAC [facility] PRN Reason: Protocol Last Admin: 11/12/16 11:38 Dose: Not Given Insulin Detemir (Levemir) 30 unit SUBCUT BEDTIME [facility] Last Admin: 11/11/16 21:57 Dose: 30 units Lisinopril (Prinivil) 2.5 mg PO DAILY [facility] Last Admin: 11/12/16 10:18 Dose: 2.5 mg Multivitamins (Thera) 1 each PO DAILY [facility] Last Admin: 11/12/16 10:19 Dose: 1 each Ondansetron HCl (Zofran Odt) 4 mg PO Q6H PRN PRN Reason: nausea, able to take PO Last Admin: 11/12/16 07:54 Dose: 4 mg Oxybutynin Chloride (Oxybutynin Er) 5 mg PO BEDTIME [facility] Last Admin: 11/11/16 21:51 Dose: 5 mg Oxycodone HCl (Oxycodone) 5 mg PO Q4H PRN PRN Reason: PAIN Last Admin: 11/12/16 07:40 Dose: 5 mg Oxycodone/Acetaminophen (Percocet 325-5 Mg) 1 tab PO Q4H PRN PRN Reason: Pain Last Admin: 11/12/16 07:41 Dose: 1 tab Pantoprazole Sodium (Protonix) 40 mg PO ACBREAKFAST [facility] Last Admin: 11/12/16 06:26 Dose: 40 mg Pregabalin (Lyrica) 75 mg PO BEDTIME [facility] Last Admin: 11/11/16 21:51 Dose: 75 mg Ropinirole HCl (Requip) 1 mg PO BEDTIME [facility] Last Admin: 11/11/16 22:07 Dose: 1 mg Sodium Chloride (Saline Flush) 10 ml FLUSH ASDIRECTED PRN PRN Reason: Keep Vein Open Last Admin: 11/12/16 04:08 Dose: 10 ml Zolpidem Tartrate (Ambien) 5 mg PO BEDTIME PRN PRN Reason: Sleep Last Admin: 11/11/16 21:52 Dose: 5 mg Discontinued Medications Acetaminophen (Tylenol) 650 mg PO NOW STA Stop: 11/10/16 21:15 Last Admin: 11/10/16 22:00 Dose: 650 mg Diphenhydramine HCl (Benadryl) 50 mg PO ONETIME ONE Stop: 11/08/16 04:18 Last Admin: 11/08/16 04:24 Dose: 50 mg Diphenhydramine HCl (Benadryl) 50 mg PO ONETIME ONE Stop: 11/10/16 21:15 Last Admin: 11/10/16 21:59 Dose: 50 mg Hydromorphone HCl (Dilaudid) 1 mg IVPUSH ONETIME ONE Stop: 11/08/16 03:40 Last Admin: 11/08/16 04:06 Dose: 1 mg Hydromorphone HCl (Dilaudid) 1 mg IM ONETIME ONE Stop: 11/08/16 04:18 Last Admin: 11/08/16 04:25 Dose: 1 mg Sodium Chloride (Normal Saline) 1,000 mls @ 150 mls/hr IV .BOLUS ONE Stop: 11/08/16 10:16 Last Admin: 11/08/16 04:03 Dose: 150 mls/hr Vancomycin HCl 1 gm/ Sodium (Chloride) 250 mls @ 167 mls/hr IV ONETIME ONE Stop: 11/08/16 05:07 Last Admin: 11/08/16 04:04 Dose: 167 mls/hr Vancomycin HCl 1.25 gm/ Sodium (Chloride) 250 mls @ 166.667 mls/hr IV Q8H [facility] Last Admin: 11/09/16 11:23 Dose: Not Given Vancomycin HCl 1.25 gm/ Sodium (Chloride) 250 mls @ 166.667 mls/hr IV Q12H [facility] Last Admin: 09/01/17 10:23 Dose: Not Given Insulin Detemir (Levemir) 20 unit SUBCUT BEDTIME [facility] Non-Formulary Medication (Insulin Lispro [Humalog]) 10 units SQ TIDAC PRN PRN Reason: Blood Glucose Ondansetron HCl (Zofran) 4 mg IV ONETIME ONE Stop: 11/08/16 03:39 Last Admin: 11/08/16 04:05 Dose: 4 mg Ondansetron HCl (Zofran Odt) 4 mg PO ONETIME ONE Stop: 11/11/16 18:15 Last Admin: 11/11/16 18:43 Dose: Not Given Vancomycin HCl (Pharmacy To Dose - Vancomycin) 1 dose .XX ASDIRECTED NELLY - Exam Quality Assessment: Reports: DVT Prophylaxis. Denies: Supplemental Oxygen, Urine Catheter General: Reports: Alert, Oriented, Cooperative, No Acute Distress HEENT: Reports: Pupils Equal, Mucous Membr. Moist/[place] Neck: Reports: Supple, No JVD, No Thyromegaly Lungs: Reports: Clear to Auscultation, Normal Respiratory Effort Cardiovascular: Reports: Regular Rate, Regular Rhythm GI/Abdominal Exam: Normal Bowel Sounds, Soft, Non-Tender, Distended. No: Guarding, Rebound, Tender (Female) Exam: Deferred Rectal (Female) Exam: Deferred Back Exam: Reports: Normal Inspection, Full Range of Motion Extremities: Normal Inspection, No Pedal Edema, Leg Pain (left LE) Skin: Reports: Warm, Dry, Intact Wound/Incisions: Reports: Healing Well, Erythema Improving Neurological: Reports: No New Focal Deficit Psy/Mental Status: Reports: Alert, Normal Affect, Normal Mood *Q Meaningful Use (DIS) - VTE *Q VTE Criteria *Q: - Stroke *Q Stroke Criteria *Q: - AMI *Q AMI Criteria *Q:
[2016-11-12 13:33] VITALS: BP 110/57
== END 2016-11-12 14:37 | disposition home or self-care (01) | DRG 603 ==
LOC: DL.ED 02:58 → UNDOADMOB 05:48 → DL.MS 05:48 → OBSVTOIN 11-09 10:44
PROVIDERS: ADMIT Internal Medicine; ATTEND Internal Medicine
DX: L03.116 Cellulitis of left lower limb (principal); M79.662 Pain in left lower leg; M06.9 Rheumatoid arthritis, unspecified; Z86.14 Personal history of Methicillin resistant Staphylococcus aureus infection; Z79.899 Other long term (current) drug therapy; E11.9 Type 2 diabetes mellitus without complications; Z79.4 Long term (current) use of insulin; I10 Essential (primary) hypertension; G47.30 Sleep apnea, unspecified; F41.9 Anxiety disorder, unspecified; F32.9 Major depressive disorder, single episode, unspecified; G25.81 Restless legs syndrome; G89.4 Chronic pain syndrome; Z79.891 Long term (current) use of opiate analgesic; B96.20 Unspecified Escherichia coli [E. coli] as the cause of diseases classified elsewhere; S81.802A Unspecified open wound, left lower leg, initial encounter; B95.61 Methicillin susceptible Staphylococcus aureus infection as the cause of diseases classified elsewhere; Z88.1 Allergy status to other antibiotic agents; Z88.8 Allergy status to other drugs, medicaments and biological substances
CPT/HCPCS: 36415 ×2; 80048; 80053; 80202; 82962 ×4; 83605; 85025 ×2; 85379; 85610; 86140; 87040 ×2; 87070; 93971; 96365; 96366; 96375; 99284; A9270 ×31; J1170 ×2; J1644 ×3; J1815 ×2; J2405; J2543 ×5; J3370 ×4; J7030; J7050 ×11; Q0163; 36410; 87077; 87186; 96361; 96367; 96372; 97165-GO; 99220; G0378

== ENCOUNTER 2017-01-19 12:15 | Emergency (ER) | payer MEDICARE, MEDICAID ==
[2017-01-19 12:34] VITALS: BP 115/63
[2017-01-19] MEDS ORDERED: Sodium Chloride 0.9% 10 ML Syringe FLUSH PRN (12:35)
[2017-01-19] MEDS ORDERED: HYDROmorphone 1 MG/ML Syringe IVPUSH ONE ×2 (12:41→14:15)
--- NOTE | 2017-01-19 13:05 | CR ---
Clinical history: 41-year-old obese female with "necrotic" right great toe. Interpretation: Markedly abnormal. *Pronounced soft tissue swelling with underlying cortical erosion and bony destruction medial aspect distal end of the proximal phalanx i.e. osteomyelitis. *Loss of definition DIP joint suggests adjacent septic arthritis. Atavistic first cuneiform and hallux valgus. Chronic mild osteoarthritic changes first MTP and all interphalangeal/DIP joints of the forefoot. (Fa int arteriovascular calcifications in soft tissues typical of diabetic). No foreign body or right foot fracture/dislocation. CONCLUSION: Osteomyelitis and probable septic arthritis, right great toe. Note: Traumatic interval deterioration radiographically since 30 jul 2014 comparison film.
[2017-01-19 13:20] LABS: CHLORIDE,CL 103 mmol/L (101-111); SODIUM,NA 137 mmol/L (135-145)
--- NOTE | 2017-01-19 13:35 | EDM.PDOC ---
ED HPI GENERAL MEDICAL PROBLEM - General Chief Complaint: Skin Complaint Stated Complaint: INFECTION Time Seen by Provider: 01/19/17 12:25 Source of Information: Reports: Patient, RN, RN Notes Reviewed, Other (Provider at [facility]) - History of Present Illness INITIAL COMMENTS - FREE TEXT/NARRATIVE: Pt presents to the ER from [facility]. She was seen by a provider there who called to the ER stating the patient needed evaluation here and probable admission or transfer. Provider states the patient is a non-compliant diabetic who has an infected right great toe with a necrotic area. Pt states the sore began about 3 days ago and has quickly gotten worse. She states the pain is a 10/10, the patient is tearful. She states she also has a sore on the back of the left lower leg that has been present for over a year and has not fully healed. Pt denies fever or chills or any recent illness. Onset: Gradual Location: Reports: Lower Extremity, Right (right great toe) Quality: Reports: Burning, Throbbing Severity: Severe Improves with: Reports: None Worsens with: Reports: Other (touch), Movement Associated Symptoms: Reports: No Other Symptoms - Related Data Allergies Allergy/AdvReac Type Severity Reaction Status Date / Time daptomycin Allergy Rash Verified 11/08/16 13:20 rituximab [From Rituxan] Allergy Difficulty Verified 11/08/16 13:20 Breathing Home Meds: Home Meds Ascorbic Acid [Vitamin C] 250 mg PO TID 03/08/14 [History] predniSONE 5 mg PO DAILY 03/08/14 [History] Ferrous Sulfate [Iron] 325 mg PO TID 09/13/14 [History] Pantoprazole [Pantoprazole Sodium] 40 mg PO DAILY 09/13/14 [History] Albuterol [Proventil Neb Soln] 2.5 mg NEB QIDRT PRN 04/27/15 [History] DULoxetine [Cymbalta] 60 mg PO DAILY 08/07/15 [History] Etanercept [Enbrel] 25 mg IM .TWICE A WEEK 08/07/15 [History] Insulin Glarg,Human.Rec.Analog [LantUS Solostar] 35 units SQ BEDTIME 08/07/15 [ History] rOPINIRole [Requip] 1 mg PO BEDTIME 08/13/15 [History] Multivitamin [Multivitamins] 1 each PO DAILY 09/20/15 [History] oxyCODONE HCl/Acetaminophen [Endocet 10-325 mg Tablet] 1 each PO Q4H PRN [History] Lisinopril [Prinivil] 2.5 mg PO DAILY 04/14/16 [History] Oxybutynin [Oxybutynin ER] 5 mg PO BEDTIME 04/14/16 [History] Pregabalin [Lyrica] 75 mg PO BEDTIME 04/14/16 [History] cycloSPORINE [Restasis] 1 drop EYEBOTH ASDIRECTED 04/14/16 [History] Insulin Aspart [NovoLOG] 30 units INJECT BID 05/16/16 [History] Amoxicillin/Potassium Clav [Augmentin 875-125 Tablet] 1 each PO Q12H 10 Days # 20 tablet 11/12/16 [Rx] Past Medical History - Past Health History Medical/Surgical History: Denies Medical/Surgical History HEENT History: Reports: Cataract, Impaired Vision, Other (See Below) Other HEENT History: wears glasses Cardiovascular History: Reports: Hypertension, SOB on Exertion Respiratory History: Reports: Bronchitis, Recurrent, Sleep Apnea, SOB Gastrointestinal History: Reports: Gastritis, Other (See Below) Other Gastrointestinal History: chronic stomach pains. 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 OSTEOMELITIS OF RIGHT FOOT Neurological History: Reports: Other (See Below) Other Neuro History: SOMNOLENCE, DAYTIME, nerve damage to back and legs Psychiatric History: Reports: Anxiety, Eating Disorders Endocrine/Metabolic History: Reports: Diabetes, Type II, IDDM, Obesity/BMI 30+ Hematologic History: Reports: Iron Deficiency, Other (See Below) Other Hematologic History: HX OF SEPSIS. HX OF MRSA INFECTION Immunologic History: Reports: Immunosuppression, Other (See Below) Other Immunologic History: RA Oncologic (Cancer) History: Reports: None Dermatologic History: Reports: Cellulitis, Other (See Below) Other Dermatologic History: hx of mrsa. HX OF SKIN ULCERS OF FOOT, BILAT. DIABETIC SKIN ULCERS. CELLULITIS OF L ANTERIOR LOWER LEG. BIOPSY OF SKIN LESION - Infectious Disease History Infectious Disease History: Reports: Chicken Pox, MRSA, Shingles - Past Surgical History HEENT Surgical History: Reports: None Cardiovascular Surgical History: Reports: None Musculoskeletal Surgical History: Reports: None Oncologic Surgical History: Reports: None Social & Family History - Family History Family Medical History: Noncontributory HEENT: Reports: None Cardiac: Reports: None Respiratory: Reports: None GI: Reports: None : Reports: None OBGYN: Reports: None Musculoskeletal: Reports: RA Neurological: Reports: None Psychiatric: Reports: Depression Endocrine/Metabolic: Reports: Diabetes, type II Hematologic: Reports: None Immunologic: Reports: None Dermatologic: Reports: None Oncologic: Reports: None - Tobacco Use Smoking Status *Q: Former Smoker Years of Tobacco use: 10 Packs/Tins Daily: 0.5 Used Tobacco, but Quit: No Month Tobacco Last Used: 09/06/2010 Second Hand Smoke Exposure: No - Caffeine Use Caffeine Use: Reports: Coffee, Soda - Alcohol Use Days Per Week of Alcohol Use: 0 - Recreational Drug Use Recreational Drug Use: No Drug Use in Last 12 Months: No - Living Situation & Occupation Living situation: Reports: with Family ED ROS GENERAL - Review of Systems Review Of Systems: ROS reveals no pertinent complaints other than HPI. ED EXAM, SKIN/RASH Exam: See Below Exam Limited By: No Limitations General Appearance: Alert, WD/WN, Anxious, Moderate Distress Eye Exam: Bilateral Eye: Normal Inspection Ears: Normal External Exam, Hearing Grossly Normal Nose: Normal Inspection Throat/Mouth: Normal Inspection, Normal Oropharynx, Normal Voice, No Airway Compromise Head: Atraumatic, Normocephalic Neck: Normal Inspection, Supple, Non-Tender, Full Range of Motion Respiratory/Chest: No Respiratory Distress, Lungs Clear, Normal Breath Sounds, No Accessory Muscle Use, Chest Non-Tender Cardiovascular: Normal Peripheral Pulses, Regular Rate, Rhythm, No Edema, No Gallop, No JVD, No Murmur, No Rub Peripheral Pulses: 2+: Radial (L), Radial (R) GI/Abdominal: Normal Bowel Sounds, Soft, Non-Tender (Female) Exam: Deferred Rectal (Female) Exam: Deferred Back Exam: Normal Inspection, Full Range of Motion Extremities: Joint Swelling (right great toe), Limited Range of Motion (right great toe), Increased Warmth (right great toe), Redness (right great toe) Neurological: Alert, Oriented, Normal Cognition, No Motor/Sensory Deficits Psychiatric: Normal Affect, Normal Mood, Anxious, Tearful Skin: Warm, Dry, Intact, Normal Color, No Rash, Erythema Location, Skin: Lower Extremity, Right (right great toe) Characteristics: Erythematous, Necrotic Associated features: Warmth, Tenderness, Swelling, Induration Lymphatic: No Adenopathy Course - Vital Signs Last Recorded V/S: Last Vital Signs Temp 97.3 F 01/19/17 12:20 Pulse 82 01/19/17 12:20 Resp 16 01/19/17 12:20 BP 115/63 01/19/17 12:20 Pulse Ox 100 01/19/17 12:20 - Orders/Labs/Meds Orders: Active Orders 24 hr Category Date Time Status CULTURE BLOOD [BC] Stat Lab 01/19/17 12:50 Results CULTURE BLOOD [BC] Stat Lab 01/19/17 12:53 Results Labs: Laboratory Tests 01/19/17 01/19/17 01/19/17 Range/Units 12:53 12:53 12:53 WBC 4.8 L (5.0-10.0) 10^3/uL RBC 4.26 (4.2-5.4) 10^6/uL Hgb 12.4 (12.0-16.0) g/dL Hct 38.3 (37.0-47.0) % MCV 89.9 D (80-100) fL MCH 29.1 (27.0-34.0) pg MCHC 32.4 L (33.0-35.0) g/dL Plt Count 302 (150-450) 10^3/uL Neut % (Auto) 62.2 (42.2-75.2) % Lymph % (Auto) 28.7 (20.5-50.1) % Granite % (Auto) 3.1 (2-8) % Eos % (Auto) 5.8 H (1.0-3.0) % Baso % (Auto) 0.2 (0.0-1.0) % Sodium 137 (135-145) mmol/L Potassium 3.5 L (3.6-5.0) mmol/L Chloride 103 (101-111) mmol/L Carbon Dioxide 23.0 (21.0-31.0) mmol/L Anion Gap 14.5 BUN 16 (7-18) mg/dL Creatinine 0.8 (0.6-1.3) mg/dL Est Cr Clr Drug Dosing 92.41 mL/min Estimated GFR (MDRD) > 60 BUN/Creatinine Ratio 20.00 Glucose 245 H (74-105) mg/dL Lactic Acid 2.0 (0.5-2.2) mmol/L Calcium 8.5 (8.4-10.2) mg/dl Total Bilirubin 0.5 (0.2-1.0) mg/dL AST 24 (10-42) IU/L ALT 20 (10-60) IU/L Alkaline Phosphatase 52 (42-121) IU/L Total Protein 6.9 (6.7-8.2) g/dl Albumin 3.3 (3.2-5.5) g/dl Globulin 3.6 Albumin/Globulin Ratio 0.92 Meds: Medications Discontinued Medications Generic Name Dose Route Start Last Admin Trade Name Freq PRN Reason Stop Dose Admin Hydromorphone HCl 1 mg 01/19/17 12:41 01/19/17 12:56 Dilaudid IVPUSH 01/19/17 12:42 1 mg ONETIME ONE Administration Hydromorphone HCl 1 mg 01/19/17 14:15 01/19/17 14:22 Dilaudid IVPUSH 01/19/17 14:16 1 mg ONETIME ONE Administration Sodium Chloride 10 ml 01/19/17 12:35 01/19/17 12:47 Saline Flush FLUSH 10 ml ASDIRECTED PRN Administration Keep Vein Open - Radiology Interpretation Free Text/Narrative:: right foot xray: Osteomyelitis and probable septic arthritis, right great toe See rad report Departure - Departure Time of Disposition: 15:13 Disposition: DC/Tfer to Acute Hospital 02 Condition: Fair Clinical Impression: Osteomyelitis Qualifiers: Osteomyelitis type: unspecified type Osteomyelitis location: foot Laterality: right Qualified Code(s): M86.9 - Osteomyelitis, unspecified - Discharge Information Referrals: PCP,Unobtain [Primary Care Provider] - Forms: ED Department Discharge, Interfacility Transfer EMTALA - My Orders Last 24 Hours: My Active Orders 01/19/17 12:50 CULTURE BLOOD [BC] Stat 01/19/17 12:53 CULTURE BLOOD [BC] Stat - Assessment/Plan Last 24 Hours: My Active Orders 01/19/17 12:50 CULTURE BLOOD [BC] Stat 01/19/17 12:53 CULTURE BLOOD [BC] Stat
== END 2017-01-19 14:25 ==
LOC: DL.ED 12:15
DX: M86.9 Osteomyelitis, unspecified (principal); I10 Essential (primary) hypertension; E11.9 Type 2 diabetes mellitus without complications; Z87.891 Personal history of nicotine dependence; Z79.4 Long term (current) use of insulin; Z79.899 Other long term (current) drug therapy; Z88.1 Allergy status to other antibiotic agents; Z88.8 Allergy status to other drugs, medicaments and biological substances
CPT/HCPCS: 36415; 73620; 80053; 83605; 85025; 87040; 96374; 96376; 99284; J1170; J7050

== ENCOUNTER 2017-02-05 22:01 | Emergency (ER) | payer MEDICARE, MEDICAID ==
[2017-02-05] MEDS ORDERED: Ondansetron 4 MG/2 ML SDV IV ONE (22:43)
[2017-02-05] MEDS ORDERED: Morphine 2 MG/ML Syringe IVPUSH ONE (22:43)
--- NOTE | 2017-02-05 22:46 | EDM.PDOC ---
ED HPI GENERAL MEDICAL PROBLEM - General Chief Complaint: Lower Extremity Injury/Pain Stated Complaint: SURGERY ON L LEG, POSSIBLE INFECTED [id number] Time Seen by Provider: 02/05/17 22:44 Source of Information: Reports: Patient History Limitations: Reports: No Limitations - History of Present Illness INITIAL COMMENTS - FREE TEXT/NARRATIVE: right big toe amputation 2 weeks ago, does dressing change at home now looks and feels worse today. was taking augmentin and just finished it today. 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: Oxycodone Right Feet Pain Score (Numeric/FACES): 8 - Related Data Allergies Allergy/AdvReac Type Severity Reaction Status Date / Time daptomycin Allergy Rash Verified 02/05/17 23:14 rituximab [From Rituxan] Allergy Difficulty Verified 02/05/17 23:14 Breathing Home Meds: Home Meds Ascorbic Acid [Vitamin C] 250 mg PO TID 03/08/14 [History] predniSONE 5 mg PO DAILY 03/08/14 [History] Ferrous Sulfate [Iron] 325 mg PO TID 09/13/14 [History] Pantoprazole [Pantoprazole Sodium] 40 mg PO DAILY 09/13/14 [History] Albuterol [Proventil Neb Soln] 2.5 mg NEB QIDRT PRN 04/27/15 [History] DULoxetine [Cymbalta] 60 mg PO DAILY 08/07/15 [History] Etanercept [Enbrel] 25 mg IM .TWICE A WEEK 08/07/15 [History] Insulin Glarg,Human.Rec.Analog [LantUS Solostar] 35 units SQ BEDTIME 08/07/15 [ History] rOPINIRole [Requip] 1 mg PO BEDTIME 08/13/15 [History] Multivitamin [Multivitamins] 1 each PO DAILY 09/20/15 [History] oxyCODONE HCl/Acetaminophen [Endocet 10-325 mg Tablet] 1 each PO Q4H PRN [History] Lisinopril [Prinivil] 2.5 mg PO DAILY 04/14/16 [History] Oxybutynin [Oxybutynin ER] 5 mg PO BEDTIME 04/14/16 [History] Pregabalin [Lyrica] 75 mg PO BEDTIME 04/14/16 [History] cycloSPORINE [Restasis] 1 drop EYEBOTH ASDIRECTED 04/14/16 [History] Insulin Aspart [NovoLOG] 30 units INJECT BID 05/16/16 [History] Amoxicillin/Potassium Clav [Augmentin 875-125 Tablet] 1 each PO Q12H 10 Days # 20 tablet 11/12/16 [Rx] Past Medical History - Past Health History Medical/Surgical History: Denies Medical/Surgical History HEENT History: Reports: Cataract, Impaired Vision, Other (See Below) Other HEENT History: wears glasses Cardiovascular History: Reports: Hypertension, SOB on Exertion Respiratory History: Reports: Bronchitis, Recurrent, Sleep Apnea, SOB Gastrointestinal History: Reports: Gastritis, Other (See Below) Other Gastrointestinal History: chronic stomach pains. 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 OSTEOMELITIS OF RIGHT FOOT Neurological History: Reports: Other (See Below) Other Neuro History: SOMNOLENCE, DAYTIME, nerve damage to back and legs Psychiatric History: Reports: Anxiety, Eating Disorders Endocrine/Metabolic History: Reports: Diabetes, Type II, IDDM, Obesity/BMI 30+ Hematologic History: Reports: Iron Deficiency, Other (See Below) Other Hematologic History: HX OF SEPSIS. HX OF MRSA INFECTION Immunologic History: Reports: Immunosuppression, Other (See Below) Other Immunologic History: RA Oncologic (Cancer) History: Reports: None Dermatologic History: Reports: Cellulitis, Other (See Below) Other Dermatologic History: hx of mrsa. HX OF SKIN ULCERS OF FOOT, BILAT. DIABETIC SKIN ULCERS. CELLULITIS OF L ANTERIOR LOWER LEG. BIOPSY OF SKIN LESION - Infectious Disease History Infectious Disease History: Reports: Chicken Pox, MRSA, Shingles - Past Surgical History HEENT Surgical History: Reports: None Cardiovascular Surgical History: Reports: None Musculoskeletal Surgical History: Reports: Amputation, Other (See Below) Other Musculoskeletal Surgeries/Procedures:: right toe ampulation Oncologic Surgical History: Reports: None Social & Family History - Family History Family Medical History: Noncontributory HEENT: Reports: None Cardiac: Reports: None Respiratory: Reports: None GI: Reports: None : Reports: None OBGYN: Reports: None Musculoskeletal: Reports: RA Neurological: Reports: None Psychiatric: Reports: Depression Endocrine/Metabolic: Reports: Diabetes, type II Hematologic: Reports: None Immunologic: Reports: None Dermatologic: Reports: None Oncologic: Reports: None - Tobacco Use Smoking Status *Q: Never Smoker Years of Tobacco use: 10 Packs/Tins Daily: 0.5 Used Tobacco, but Quit: No Month Tobacco Last Used: 09/06/2010 Second Hand Smoke Exposure: No - Caffeine Use Caffeine Use: Reports: Coffee - Alcohol Use Days Per Week of Alcohol Use: 0 - Recreational Drug Use Recreational Drug Use: No Drug Use in Last 12 Months: No - Living Situation & Occupation Living situation: Reports: with Family Review of Systems - Review of Systems Review Of Systems: ROS reveals no pertinent complaints other than HPI. ED EXAM, GENERAL - Physical Exam Exam: See Below Exam Limited By: No Limitations General Appearance: Alert, WD/WN, Mild Distress, Moderate Distress, Other ( crying) Ears: Hearing Grossly Normal Throat/Mouth: Normal Voice, No Airway Compromise Head: Atraumatic Neck: Non-Tender, Full Range of Motion Respiratory/Chest: No Respiratory Distress Cardiovascular: Regular Rate, Rhythm GI/Abdominal: Soft, Non-Tender Extremities: Other (right big toe amput' right foot swollen, non erythematous, no lymphangitis, wound dehiscence with drainage) Neurological: Alert, Oriented, Normal Cognition, No Motor/Sensory Deficits Psychiatric: Tearful Skin Exam: Warm, Dry, Normal Color Lymphatic: No Adenopathy Course - Vital Signs Last Recorded V/S: Last Vital Signs Temp 36.7 C 02/06/17 00:17 Pulse 99 02/06/17 00:17 Resp 19 02/06/17 00:17 BP 160/74 H 02/06/17 00:17 Pulse Ox 96 02/06/17 00:17 - Orders/Labs/Meds Orders: Active Orders 24 hr Category Date Time Status CULTURE BLOOD [BC] Stat Lab 02/05/17 22:40 Received CULTURE WOUND [RM] Stat Lab 02/05/17 23:02 Received Labs: Laboratory Tests 02/05/17 02/05/17 02/05/17 Range/Units 22:40 22:40 22:40 WBC 5.6 (5.0-10.0) 10^3/uL RBC 4.42 (4.2-5.4) 10^6/uL Hgb 12.8 (12.0-16.0) g/dL Hct 39.8 (37.0-47.0) % MCV 90.0 (80-100) fL MCH 29.0 (27.0-34.0) pg MCHC 32.2 L (33.0-35.0) g/dL Plt Count 381 D (150-450) 10^3/uL Neut % (Auto) 73.3 (42.2-75.2) % Lymph % (Auto) 22.9 (20.5-50.1) % Esmeralda % (Auto) 2.0 (2-8) % Eos % (Auto) 1.6 (1.0-3.0) % Baso % (Auto) 0.2 (0.0-1.0) % Sodium 132 L (135-145) mmol/L Potassium 4.4 (3.6-5.0) mmol/L Chloride 100 L (101-111) mmol/L Carbon Dioxide 20.0 L (21.0-31.0) mmol/L Anion Gap 16.4 BUN 20 H (7-18) mg/dL Creatinine 1.0 (0.6-1.3) mg/dL Est Cr Clr Drug Dosing TNP Estimated GFR (MDRD) > 60 BUN/Creatinine Ratio 20.00 Glucose 394 H (74-105) mg/dL Lactic Acid 2.4 H (0.5-2.2) mmol/L Calcium 9.4 (8.4-10.2) mg/dl Total Bilirubin 0.5 (0.2-1.0) mg/dL AST 25 (10-42) IU/L ALT 17 (10-60) IU/L Alkaline Phosphatase 57 (42-121) IU/L Total Protein 8.2 (6.7-8.2) g/dl Albumin 3.6 (3.2-5.5) g/dl Globulin 4.6 Albumin/Globulin Ratio 0.78 Meds: Medications Discontinued Medications Generic Name Dose Route Start Last Admin Trade Name Freq PRN Reason Stop Dose Admin Clindamycin Phosphate 900 mg/ 106 mls @ 200 mls/hr 02/05/17 22:52 02/05/17 22 :57 Sodium Chloride IV 02/05/17 23:23 200 mls/hr ONETIME ONE Administration Insulin Human Regular 5 unit 02/06/17 00:19 Humulin R IV 02/06/17 00:20 ONETIME ONE Protocol Morphine Sulfate 2 mg 02/05/17 22:43 02/05/17 22:52 Morphine IVPUSH 02/05/17 22:44 2 mg ONETIME ONE Administration Ondansetron HCl 4 mg 02/05/17 22:43 02/05/17 22:52 Zofran IV 02/05/17 22:44 4 mg ONETIME ONE Administration - Re-Assessments/Exams Free Text/Narrative Re-Assessment/Exam: 02/06/17 00:[address] Thao who kindly accepted pt. Departure - Departure Time of Disposition: 00:31 Disposition: DC/Tfer to [facility] 02 Condition: Fair Clinical Impression: Hyperglycemia, Elevated lactic acid level Postoperative wound dehiscence Qualifiers: Encounter type: initial encounter Qualified Code(s): T81.31XA - Disruption of external operation (surgical) wound, not elsewhere classified, initial encounter Deep postoperative wound infection Qualifiers: Encounter type: initial encounter Qualified Code(s): T81.4XXA - Infection following a procedure, initial encounter - Discharge Information Forms: Interfacility Transfer EMTALA - My Orders Last 24 Hours: My Active Orders 02/05/17 22:40 CULTURE BLOOD [BC] Stat 02/05/17 23:02 CULTURE WOUND [RM] Stat - Assessment/Plan Last 24 Hours: My Active Orders 02/05/17 22:40 CULTURE BLOOD [BC] Stat 02/05/17 23:02 CULTURE WOUND [RM] Stat
[2017-02-05] MEDS ORDERED: Clindamycin Phosphate 900 MG in Sodium Chloride 0.9% 100 ML IV ONE (22:52)
[2017-02-05 23:08] LABS: CHLORIDE,CL 100 mmol/L (101-111); SODIUM,NA 132 mmol/L (135-145)
[2017-02-06 00:18] VITALS: BP 160/74
[2017-02-06] MEDS ORDERED: Insulin Regular, Human 100 Units/ML 3 ML Vial IV ONE (00:19)
== END 2017-02-06 01:22 ==
LOC: DL.ED 22:01
DX: T81.4XXA Infection following a procedure, initial encounter (principal); T81.31XA Disruption of external operation (surgical) wound, not elsewhere classified, initial encounter; E11.65 Type 2 diabetes mellitus with hyperglycemia; R74.0 Nonspecific elevation of levels of transaminase and lactic acid dehydrogenase [LDH]; I10 Essential (primary) hypertension; Z89.411 Acquired absence of right great toe; Z79.4 Long term (current) use of insulin; Z79.899 Other long term (current) drug therapy; Z88.1 Allergy status to other antibiotic agents; Z88.8 Allergy status to other drugs, medicaments and biological substances
CPT/HCPCS: 36415; 73620; 80053; 82962; 83605; 85025; 87040; 87070; 96374; 96375; 99285; J1815; J2270; J2405; J7050; 87077; 87186; S0077

== ENCOUNTER 2017-02-12 23:34 | Emergency (ER) | payer MEDICARE, MEDICAID ==
[2017-02-12 23:54] VITALS: BP 108/62
[2017-02-13] MEDS ORDERED: Ketorolac 30 MG/ML SDV IM ONE (00:27)
--- NOTE | 2017-02-13 00:32 | EDM.PDOC ---
ED HPI GENERAL MEDICAL PROBLEM - General Chief Complaint: General Stated Complaint: WHOLE BODY IS INFLAMED Time Seen by Provider: 02/13/17 00:28 Source of Information: Reports: Patient History Limitations: Reports: No Limitations - History of Present Illness INITIAL COMMENTS - FREE TEXT/NARRATIVE: This patient reports she has generalized body aches and pains. The patient reports she was taken off her steroids during her antibiotic treatment leading to increased body pains. Duration: Day(s):, Constant, Getting Worse Location: Reports: Generalized Quality: Reports: Ache, Dull Severity: Mild Improves with: Reports: None Worsens with: Reports: None Associated Symptoms: Reports: No Other Symptoms Back Pain Score (Numeric/FACES): 10 - Related Data Allergies Allergy/AdvReac Type Severity Reaction Status Date / Time daptomycin Allergy Rash Verified 02/12/17 23:54 rituximab [From Rituxan] Allergy Difficulty Verified 02/12/17 23:54 Breathing Home Meds: Home Meds Ascorbic Acid [Vitamin C] 250 mg PO TID 03/08/14 [History] predniSONE 5 mg PO DAILY 03/08/14 [History] Ferrous Sulfate [Iron] 325 mg PO TID 09/13/14 [History] Pantoprazole [Pantoprazole Sodium] 40 mg PO DAILY 09/13/14 [History] Albuterol [Proventil Neb Soln] 2.5 mg NEB QIDRT PRN 04/27/15 [History] DULoxetine [Cymbalta] 60 mg PO DAILY 08/07/15 [History] Insulin Glarg,Human.Rec.Analog [LantUS Solostar] 30 units SQ BID 08/07/15 [ History] rOPINIRole [Requip] 1 mg PO BEDTIME 08/13/15 [History] Multivitamin [Multivitamins] 1 each PO DAILY 09/20/15 [History] oxyCODONE HCl/Acetaminophen [Endocet 10-325 mg Tablet] 1 each PO Q4H PRN [History] Lisinopril [Prinivil] 2.5 mg PO DAILY 04/14/16 [History] Oxybutynin [Oxybutynin ER] 5 mg PO BEDTIME 04/14/16 [History] Pregabalin [Lyrica] 75 mg PO BEDTIME 04/14/16 [History] cycloSPORINE [Restasis] 1 drop EYEBOTH ASDIRECTED 04/14/16 [History] Insulin Aspart [NovoLOG] 30 units INJECT BID 05/16/16 [History] Past Medical History - Past Health History Medical/Surgical History: Denies Medical/Surgical History HEENT History: Reports: Cataract, Impaired Vision, Other (See Below) Other HEENT History: wears glasses Cardiovascular History: Reports: Hypertension, SOB on Exertion Respiratory History: Reports: Bronchitis, Recurrent, Sleep Apnea, SOB Gastrointestinal History: Reports: Gastritis, Other (See Below) Other Gastrointestinal History: chronic stomach pains. 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 OSTEOMELITIS OF RIGHT FOOT Neurological History: Reports: Other (See Below) Other Neuro History: SOMNOLENCE, DAYTIME, nerve damage to back and legs Psychiatric History: Reports: Anxiety, Eating Disorders Endocrine/Metabolic History: Reports: Diabetes, Type II, IDDM, Obesity/BMI 30+ Hematologic History: Reports: Iron Deficiency, Other (See Below) Other Hematologic History: HX OF SEPSIS. HX OF MRSA INFECTION Immunologic History: Reports: Immunosuppression, Other (See Below) Other Immunologic History: RA Oncologic (Cancer) History: Reports: None Dermatologic History: Reports: Cellulitis, Other (See Below) Other Dermatologic History: hx of mrsa. HX OF SKIN ULCERS OF FOOT, BILAT. DIABETIC SKIN ULCERS. CELLULITIS OF L ANTERIOR LOWER LEG. BIOPSY OF SKIN LESION - Infectious Disease History Infectious Disease History: Reports: Chicken Pox, MRSA - Past Surgical History HEENT Surgical History: Reports: None Cardiovascular Surgical History: Reports: None Musculoskeletal Surgical History: Reports: Amputation, Other (See Below) Other Musculoskeletal Surgeries/Procedures:: right toe ampulation Oncologic Surgical History: Reports: None Social & Family History - Family History Family Medical History: Noncontributory HEENT: Reports: None Cardiac: Reports: None Respiratory: Reports: None GI: Reports: None : Reports: None OBGYN: Reports: None Musculoskeletal: Reports: RA Neurological: Reports: None Psychiatric: Reports: Depression Endocrine/Metabolic: Reports: Diabetes, type II Hematologic: Reports: None Immunologic: Reports: None Dermatologic: Reports: None Oncologic: Reports: None - Tobacco Use Smoking Status *Q: Never Smoker Years of Tobacco use: 6 Packs/Tins Daily: 0.5 Used Tobacco, but Quit: Yes Month Tobacco Last Used: February Second Hand Smoke Exposure: No - Caffeine Use Caffeine Use: Reports: Coffee - Alcohol Use Days Per Week of Alcohol Use: 0 - Recreational Drug Use Recreational Drug Use: No Drug Use in Last 12 Months: No - Living Situation & Occupation Living situation: Reports: with Family ED ROS GENERAL - Review of Systems Review Of Systems: ROS reveals no pertinent complaints other than HPI. ED EXAM, GENERAL - Physical Exam Exam: See Below Exam Limited By: No Limitations General Appearance: Alert, WD/WN, Moderate Distress, Obese Eye Exam: Bilateral Eye: EOMI, Normal Inspection, Other (pupils were sluggish and minimally reactive) Ears: Normal External Exam, Normal Canal, Hearing Grossly Normal, Normal TMs Nose: Normal Inspection, Normal Mucosa, No Blood Throat/Mouth: Normal Inspection, Normal Lips, Normal Teeth, Normal Gums, Normal Oropharynx, Normal Voice, No Airway Compromise Head: Atraumatic, Normocephalic Neck: Normal Inspection, Supple, Non-Tender, Full Range of Motion Respiratory/Chest: No Respiratory Distress, Lungs Clear, Normal Breath Sounds, No Accessory Muscle Use, Chest Non-Tender Cardiovascular: Normal Peripheral Pulses, Regular Rate, Rhythm, No Edema, No Gallop, No JVD, No Murmur, No Rub GI/Abdominal: Normal Bowel Sounds, Soft, Non-Tender, No Organomegaly, No Distention, No Abnormal Bruit, No Mass (Female) Exam: Deferred Rectal (Female) Exam: Deferred Back Exam: Normal Inspection, Full Range of Motion, NT Extremities: Normal Inspection, Normal Range of Motion, Non-Tender, Normal Capillary Refill, No Pedal Edema Neurological: Alert, Oriented, CN II-XII Intact, Normal Cognition, Normal Gait, Normal Reflexes, No Motor/Sensory Deficits Psychiatric: Normal Affect, Normal Mood Skin Exam: Warm, Dry, Intact, Normal Color, No Rash Lymphatic: No Adenopathy Course - Vital Signs Last Recorded V/S: Last Vital Signs Temp 36.4 C 02/12/17 23:47 Pulse 92 02/12/17 23:47 Resp 18 02/12/17 23:47 BP 108/62 02/12/17 23:47 Pulse Ox 95 02/12/17 23:47 - Orders/Labs/Meds Meds: Medications Discontinued Medications Generic Name Dose Route Start Last Admin Trade Name Bart PRN Reason Stop Dose Admin Ketorolac Tromethamine 60 mg 02/13/17 00:27 Toradol IM 02/13/17 00:28 ONETIME ONE Departure - Departure Time of Disposition: 00:30 Disposition: Home, Self-Care 01 Condition: Fair Clinical Impression: Pain, Chronic pain - Discharge Information Instructions: Chronic Pain Forms: ED Department Discharge Care Plan Goals: The patient was advised of the examination results during the visit. The patient was given an injection of Toradol while in the ED. The patient was encouraged to follow-up with her primary care facility for continued evaluation and further management. If the patient has any additional symptoms or concerns, the patient should visit her primary care facility, [facility] or return to the ED.
== END 2017-02-13 00:40 | disposition home or self-care (01) ==
LOC: DL.ED 23:34
DX: G89.29 Other chronic pain (principal); I10 Essential (primary) hypertension; E11.9 Type 2 diabetes mellitus without complications; Z87.891 Personal history of nicotine dependence; Z79.4 Long term (current) use of insulin; Z79.899 Other long term (current) drug therapy; Z88.1 Allergy status to other antibiotic agents; Z88.8 Allergy status to other drugs, medicaments and biological substances; M86.171 Other acute osteomyelitis, right ankle and foot; T81.4XXD Infection following a procedure, subsequent encounter
CPT/HCPCS: 96365; 96372; 99283; J1885; J2543; J7050

== ENCOUNTER 2017-03-26 14:48 | Emergency (ER) | payer MEDICARE, MEDICAID ==
[2017-03-26 14:57] VITALS: BP 130/67
--- NOTE | 2017-03-26 15:20 | EDM.PDOC ---
ED HPI GENERAL MEDICAL PROBLEM - General Chief Complaint: General Stated Complaint: back pain [id number] Time Seen by Provider: 03/26/17 15:05 Source of Information: Reports: Patient History Limitations: Reports: No Limitations - History of Present Illness INITIAL COMMENTS - FREE TEXT/NARRATIVE: This 41 yo female patient reports to the ED with increased pain in her right foot (previous right great toe amputation) and left flank pain. The patient reports she has noticed pain an drainage from her right toe for the past week. The patient reports her left lower back started hurting this morning at 0600. The patient reports she took an Oxycodone this morning for her pain and fell asleep until now. The patient reports no significant changes to her right foot. The patient reports she has not changed the bandages for the past 2 days over the operation site (right amputated great toe). The patient denies any recent falls or trauma causing the back pain. Review of the patient's records demonstrates that the patient missed 17 of 25 appointments for infusions for her right foot post op infection. 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 Medication(s) (Oxycodone) - Related Data Allergies Allergy/AdvReac Type Severity Reaction Status Date / Time daptomycin Allergy Rash Verified 03/26/17 14:55 rituximab [From Rituxan] Allergy Difficulty Verified 03/26/17 14:55 Breathing Home Meds: Home Meds Ascorbic Acid [Vitamin C] 250 mg PO TID 03/08/14 [History] predniSONE 5 mg PO DAILY 03/08/14 [History] Ferrous Sulfate [Iron] 325 mg PO TID 09/13/14 [History] Pantoprazole [Pantoprazole Sodium] 40 mg PO DAILY 09/13/14 [History] Albuterol [Proventil Neb Soln] 2.5 mg NEB QIDRT PRN 04/27/15 [History] DULoxetine [Cymbalta] 60 mg PO DAILY 08/07/15 [History] Insulin Glarg,Human.Rec.Analog [LantUS Solostar] 35 units SQ BID 08/07/15 [ History] rOPINIRole [Requip] 1 mg PO BEDTIME 08/13/15 [History] Multivitamin [Multivitamins] 1 each PO DAILY 09/20/15 [History] oxyCODONE HCl/Acetaminophen [Endocet 10-325 mg Tablet] 1 each PO Q4H PRN [History] Lisinopril [Prinivil] 2.5 mg PO DAILY 04/14/16 [History] Oxybutynin [Oxybutynin ER] 5 mg PO BEDTIME 04/14/16 [History] Pregabalin [Lyrica] 75 mg PO BEDTIME 04/14/16 [History] cycloSPORINE [Restasis] 1 drop EYEBOTH ASDIRECTED 04/14/16 [History] Insulin Aspart [NovoLOG] 30 units INJECT BID 05/16/16 [History] Past Medical History - Past Health History Medical/Surgical History: Denies Medical/Surgical History HEENT History: Reports: Cataract, Impaired Vision, Other (See Below) Other HEENT History: wears glasses Cardiovascular History: Reports: Hypertension, SOB on Exertion Respiratory History: Reports: Bronchitis, Recurrent, Sleep Apnea, SOB Gastrointestinal History: Reports: Gastritis, Other (See Below) Other Gastrointestinal History: chronic stomach pains. 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 OSTEOMELITIS OF RIGHT FOOT Neurological History: Reports: Other (See Below) Other Neuro History: SOMNOLENCE, DAYTIME, nerve damage to back and legs Psychiatric History: Reports: Anxiety, Eating Disorders Endocrine/Metabolic History: Reports: Diabetes, Type II, IDDM, Obesity/BMI 30+ Hematologic History: Reports: Iron Deficiency, Other (See Below) Other Hematologic History: HX OF SEPSIS. HX OF MRSA INFECTION Immunologic History: Reports: Immunosuppression, Other (See Below) Other Immunologic History: RA Oncologic (Cancer) History: Reports: None Dermatologic History: Reports: Cellulitis, Other (See Below) Other Dermatologic History: hx of mrsa. HX OF SKIN ULCERS OF FOOT, BILAT. DIABETIC SKIN ULCERS. CELLULITIS OF L ANTERIOR LOWER LEG. BIOPSY OF SKIN LESION - Infectious Disease History Infectious Disease History: Reports: Chicken Pox, MRSA - Past Surgical History HEENT Surgical History: Reports: None Cardiovascular Surgical History: Reports: None Musculoskeletal Surgical History: Reports: Amputation, Other (See Below) Other Musculoskeletal Surgeries/Procedures:: right toe ampulation Oncologic Surgical History: Reports: None Social & Family History - Family History Family Medical History: Noncontributory HEENT: Reports: None Cardiac: Reports: None Respiratory: Reports: None GI: Reports: None : Reports: None OBGYN: Reports: None Musculoskeletal: Reports: RA Neurological: Reports: None Psychiatric: Reports: Depression Endocrine/Metabolic: Reports: Diabetes, type II Hematologic: Reports: None Immunologic: Reports: None Dermatologic: Reports: None Oncologic: Reports: None - Tobacco Use Smoking Status *Q: Never Smoker Years of Tobacco use: 6 Packs/Tins Daily: 0.5 Used Tobacco, but Quit: Yes Month Tobacco Last Used: February Second Hand Smoke Exposure: No - Caffeine Use Caffeine Use: Reports: Soda Caffeine Use Comment: 3/day - Alcohol Use Days Per Week of Alcohol Use: 0 - Recreational Drug Use Recreational Drug Use: No Drug Use in Last 12 Months: No - Living Situation & Occupation Living situation: Reports: with Family ED ROS GENERAL - Review of Systems Review Of Systems: ROS reveals no pertinent complaints other than HPI. ED EXAM, GENERAL - Physical Exam Exam: See Below Exam Limited By: No Limitations General Appearance: Alert, WD/WN, Moderate Distress, Obese Eye Exam: Bilateral Eye: EOMI, Normal Inspection, PERRL Ears: Normal External Exam, Normal Canal, Hearing Grossly Normal, Normal TMs Nose: Normal Inspection, Normal Mucosa, No Blood Throat/Mouth: Normal Inspection, Normal Lips, Normal Teeth, Normal Gums, Normal Oropharynx, Normal Voice, No Airway Compromise Head: Atraumatic, Normocephalic Neck: Normal Inspection, Supple, Non-Tender, Full Range of Motion Respiratory/Chest: No Respiratory Distress, Lungs Clear, Normal Breath Sounds, No Accessory Muscle Use, Chest Non-Tender Cardiovascular: Normal Peripheral Pulses, Regular Rate, Rhythm, No Edema, No Gallop, No JVD, No Murmur, No Rub GI/Abdominal: Normal Bowel Sounds, Soft, Non-Tender, No Organomegaly, No Distention, No Abnormal Bruit, No Mass (Female) Exam: Deferred Rectal (Female) Exam: Deferred Extremities: Limited Range of Motion (due to left lower back paraspinal tenderness) Neurological: Alert, Oriented, CN II-XII Intact, Normal Cognition, Normal Gait, Normal Reflexes, No Motor/Sensory Deficits Psychiatric: Normal Affect, Normal Mood Skin Exam: Other (right foot is slightly erythematous) Lymphatic: No Adenopathy Course - Vital Signs Last Recorded V/S: Last Vital Signs Temp 36.9 C 03/26/17 14:55 Pulse 124 H 03/26/17 14:55 Resp 18 03/26/17 14:55 BP 130/67 03/26/17 14:55 Pulse Ox 99 03/26/17 14:55 - Orders/Labs/Meds Orders: Active Orders 24 hr Category Date Time Status Abdomen Pelvis wo Cont [CT] Urgent Exams 03/26/17 17:31 Ordered CULTURE BLOOD [BC] Stat Lab 03/26/17 15:23 Received CULTURE BLOOD [BC] Stat Lab 03/26/17 15:56 Received Blood Culture x2 Reflex Set [OM.PC] Stat Oth 03/26/17 15:11 Ordered Labs: Laboratory Tests 03/26/17 03/26/17 03/26/17 Range/Units 15:23 15:23 15:23 WBC 7.3 (5.0-10.0) 10^3/uL RBC 3.97 L (4.2-5.4) 10^6/uL Hgb 10.8 L D (12.0-16.0) g/dL Hct 34.9 L (37.0-47.0) % MCV 87.9 (80-100) fL MCH 27.2 (27.0-34.0) pg MCHC 30.9 L (33.0-35.0) g/dL Plt Count 308 (150-450) 10^3/uL Neut % (Auto) 73.0 (42.2-75.2) % Lymph % (Auto) 20.2 L (20.5-50.1) % [place] % (Auto) 4.5 (2-8) % Eos % (Auto) 2.2 (1.0-3.0) % Baso % (Auto) 0.1 (0.0-1.0) % Sodium 130 L (135-145) mmol/L Potassium 3.6 (3.6-5.0) mmol/L Chloride 97 L (101-111) mmol/L Carbon Dioxide 21.0 (21.0-31.0) mmol/L Anion Gap 15.6 BUN 11 (7-18) mg/dL Creatinine 1.1 (0.6-1.3) mg/dL Est Cr Clr Drug Dosing 67.21 mL/min Estimated GFR (MDRD) 54 BUN/Creatinine Ratio 10.00 Glucose 309 H (74-105) mg/dL Lactic Acid 2.2 (0.5-2.2) mmol/L Calcium 8.5 (8.4-10.2) mg/dl Total Bilirubin 0.2 (0.2-1.0) mg/dL AST 23 (10-42) IU/L ALT 13 (10-60) IU/L Alkaline Phosphatase 55 (42-121) IU/L Total Protein 7.1 (6.7-8.2) g/dl Albumin 3.0 L (3.2-5.5) g/dl Globulin 4.1 Albumin/Globulin Ratio 0.73 Urine Color (YELLOW) Urine Appearance (CLEAR) Urine pH (5.0-9.0) Ur Specific [place] (1.005-1.030) Urine Protein (NEGATIVE) Urine Glucose (UA) (NEGATIVE) Urine Ketones (NEGATIVE) Urine Occult Blood (NEGATIVE) Urine Nitrite (NEGATIVE) Urine Bilirubin (NEGATIVE) Urine Urobilinogen (0.2-1.0) mg/dL Ur Leukocyte Esterase (NEGATIVE) Urine RBC /HPF Urine WBC (0-5/HPF) /HPF Ur Epithelial Cells /HPF Urine Bacteria (0-FEW/HPF) /HPF Urine Mucus /LPF Urine HCG, Qual Urine Opiates Screen (NEGATIVE) Ur Oxycodone Screen (NEGATIVE) Urine Methadone Screen (NEGATIVE) Ur Barbiturates Screen (NEGATIVE) U Tricyclic Antidepress (NEGATIVE) Ur Phencyclidine Scrn (NEGATIVE) Ur Amphetamine Screen (NEGATIVE) U Methamphetamines Scrn (NEGATIVE) Urine MDMA Screen (NEGATIVE) U Benzodiazepines Scrn (NEGATIVE) Urine Cocaine Screen (NEGATIVE) U Marijuana (THC) Screen (NEGATIVE) 03/26/17 03/26/17 03/26/17 Range/Units 17:01 17:01 17:01 WBC (5.0-10.0) 10^3/uL RBC (4.2-5.4) 10^6/uL Hgb (12.0-16.0) g/dL Hct (37.0-47.0) % MCV (80-100) fL MCH (27.0-34.0) pg MCHC (33.0-35.0) g/dL Plt Count (150-450) 10^3/uL Neut % (Auto) (42.2-75.2) % Lymph % (Auto) (20.5-50.1) % [place] % (Auto) (2-8) % Eos % (Auto) (1.0-3.0) % Baso % (Auto) (0.0-1.0) % Sodium (135-145) mmol/L Potassium (3.6-5.0) mmol/L Chloride (101-111) mmol/L Carbon Dioxide (21.0-31.0) mmol/L Anion Gap BUN (7-18) mg/dL Creatinine (0.6-1.3) mg/dL Est Cr Clr Drug Dosing mL/min Estimated GFR (MDRD) BUN/Creatinine Ratio Glucose (74-105) mg/dL Lactic Acid (0.5-2.2) mmol/L Calcium (8.4-10.2) mg/dl Total Bilirubin (0.2-1.0) mg/dL AST (10-42) IU/L ALT (10-60) IU/L Alkaline Phosphatase (42-121) IU/L Total Protein (6.7-8.2) g/dl Albumin (3.2-5.5) g/dl Globulin Albumin/Globulin Ratio Urine Color Yellow (YELLOW) Urine Appearance Slightly cloudy (CLEAR) Urine pH 6.5 (5.0-9.0) Ur Specific [place] 1.020 (1.005-1.030) Urine Protein 100 H (NEGATIVE) Urine Glucose (UA) Negative (NEGATIVE) Urine Ketones 15 H (NEGATIVE) Urine Occult Blood Trace-lysed H (NEGATIVE) Urine Nitrite Negative (NEGATIVE) Urine Bilirubin Negative (NEGATIVE) Urine Urobilinogen 0.2 (0.2-1.0) mg/dL Ur Leukocyte Esterase Trace H (NEGATIVE) Urine RBC 5-10 H /HPF Urine WBC 75-100 H (0-5/HPF) /HPF Ur Epithelial Cells Moderate H /HPF Urine Bacteria Few (0-FEW/HPF) /HPF Urine Mucus Rare /LPF Urine HCG, Qual Negative Urine Opiates Screen Positive H (NEGATIVE) Ur Oxycodone Screen Positive H (NEGATIVE) Urine Methadone Screen Negative (NEGATIVE) Ur Barbiturates Screen Negative (NEGATIVE) U Tricyclic Antidepress Negative (NEGATIVE) Ur Phencyclidine Scrn Negative (NEGATIVE) Ur Amphetamine Screen Negative (NEGATIVE) U Methamphetamines Scrn Negative (NEGATIVE) Urine MDMA Screen Negative (NEGATIVE) U Benzodiazepines Scrn Negative (NEGATIVE) Urine Cocaine Screen Negative (NEGATIVE) U Marijuana (THC) Screen Negative (NEGATIVE) Meds: Medications Discontinued Medications Generic Name Dose Route Start Last Admin Trade Name Freq PRN Reason Stop Dose Admin Amoxicillin/Clavulanate Potassium 1 tab 03/26/17 18:12 Augmentin 875 Mg/125 Mg PO 03/26/17 18:13 ONETIME ONE Ketorolac Tromethamine 60 mg 03/26/17 17:33 03/26/17 17:49 Toradol IM 03/26/17 17:34 60 mg ONETIME ONE Administration Departure - Departure Time of Disposition: 18:13 Disposition: Home, Self-Care 01 Condition: Fair Clinical Impression: Left flank pain, Right foot pain UTI (urinary tract infection) Qualifiers: Urinary tract infection type: acute cystitis Hematuria presence: with hematuria Qualified Code(s): N30.01 - Acute cystitis with hematuria - Discharge Information Instructions: Urinary Tract Infection, Adult, [id number], Chronic Pain Forms: ED Department Discharge Care Plan Goals: The patient was advised of the examination, lab and CT results during the visit. The patient was given an injection of Toradol and an oral dose of Augmentin while in the ED. The patient was discharged with a script for Augmentin (875/125) to take 1 by mouth 2 times per day for 7 days. The patient should follow-up with her primary care facility for her right foot pain. If the patient has any additional symptoms or concerns, the patient should follow-up with her primary care facility or return to the emergency department. - My Orders Last 24 Hours: My Active Orders 03/26/17 15:11 Blood Culture x2 Reflex Set [OM.PC] Stat 03/26/17 15:23 CULTURE BLOOD [BC] Stat 03/26/17 15:56 CULTURE BLOOD [BC] Stat 03/26/17 17:31 Abdomen Pelvis wo Cont [CT] Urgent - Assessment/Plan Last 24 Hours: My Active Orders 03/26/17 15:11 Blood Culture x2 Reflex Set [OM.PC] Stat 03/26/17 15:23 CULTURE BLOOD [BC] Stat 03/26/17 15:56 CULTURE BLOOD [BC] Stat 03/26/17 17:31 Abdomen Pelvis wo Cont [CT] Urgent
[2017-03-26] MEDS ORDERED: Ketorolac 30 MG/ML SDV IM ONE (17:33)
[2017-03-26] MEDS ORDERED: Amoxicillin/Clavulanate K 875-125 MG Tab PO ONE (18:12)
== END 2017-03-26 18:25 | disposition home or self-care (01) ==
LOC: DL.ED 14:48
DX: N30.01 Acute cystitis with hematuria (principal); M79.671 Pain in right foot; I10 Essential (primary) hypertension; Z88.8 Allergy status to other drugs, medicaments and biological substances; Z79.4 Long term (current) use of insulin; Z79.899 Other long term (current) drug therapy
CPT/HCPCS: 36415; 73630; 74176; 80053; 80305; 81001; 81025; 83605; 85025; 87040; 96372; 99284; A9270; J1885; 87077; 87186

== ENCOUNTER 2017-04-13 13:04 | Inpatient (IN) | payer MEDICARE, MEDICAID ==
--- NOTE | 2017-04-13 13:16 | EDM.PDOC ---
ED HPI GENERAL MEDICAL PROBLEM - General Chief Complaint: Lower Extremity Injury/Pain Stated Complaint: HIP PAIN Time Seen by Provider: 04/13/17 13:16 Source of Information: Reports: Patient, Old Records, RN, RN Notes Reviewed History Limitations: Reports: No Limitations - History of Present Illness INITIAL COMMENTS - FREE TEXT/NARRATIVE: Arrives from home by POV with c/o Rt hip pain without injury. Hx of RA, and has had several injections to the hip in the past, but none for the last year. Pt reports worsening of the pain at the Rt hip and into the groin over the last 4 weeks. Also she reports on/off abdominal pain for 2 days with onset of nausea and vomiting last night, that continued today, and also had diarrhea today. Pt reports the bulk of the abdominal pain is felt and the right lower, and suprapubic abdomen, with some gen. upper abd. pain as well. She has not looked at her urine to know if it has been cloudy or dark, but states she has been urinating small amounts more frequently than usual. Pt states that she doesn't know what is going on, but she feels that she is getting "sick again". Onset: Gradual Duration: Constant, Getting Worse Location: Reports: Abdomen, Lower Extremity, Right Quality: Reports: Ache Severity: Severe Improves with: Reports: Immobilization Worsens with: Reports: Movement Associated Symptoms: Reports: No Other Symptoms Right Hip Pain Score (Numeric/FACES): 10 - Related Data Allergies Allergy/AdvReac Type Severity Reaction Status Date / Time daptomycin Allergy Rash Verified 04/13/17 13:15 rituximab [From Rituxan] Allergy Difficulty Verified 04/13/17 13:15 Breathing Home Meds: Home Meds Ascorbic Acid [Vitamin C] 250 mg PO TID 03/08/14 [History] predniSONE 9 mg PO DAILY 03/08/14 [History] Ferrous Sulfate [Iron] 325 mg PO TID 09/13/14 [History] Pantoprazole [Pantoprazole Sodium] 40 mg PO DAILY 09/13/14 [History] Albuterol [Proventil Neb Soln] 2.5 mg NEB QIDRT PRN 04/27/15 [History] DULoxetine [Cymbalta] 60 mg PO DAILY 08/07/15 [History] Insulin Glarg,Human.Rec.Analog [LantUS Solostar] 35 units SQ BID 08/07/15 [ History] rOPINIRole [Requip] 1 mg PO BEDTIME 08/13/15 [History] Multivitamin [Multivitamins] 1 each PO DAILY 09/20/15 [History] oxyCODONE HCl/Acetaminophen [Endocet 10-325 mg Tablet] 1 each PO Q4H PRN [History] Lisinopril [Prinivil] 2.5 mg PO DAILY 04/14/16 [History] Oxybutynin [Oxybutynin ER] 5 mg PO BEDTIME 04/14/16 [History] Pregabalin [Lyrica] 100 mg PO BEDTIME 04/14/16 [History] cycloSPORINE [Restasis] 1 drop EYEBOTH ASDIRECTED 04/14/16 [History] Insulin Aspart [NovoLOG] 30 units INJECT BID 05/16/16 [History] Cholecalciferol (Vitamin D3) [Vitamin D3] 400 units PO DAILY 04/13/17 [History] Etanercept [Enbrel] 25 mg SQ ASDIRECTED 04/13/17 [History] Past Medical History - Past Health History Medical/Surgical History: Denies Medical/Surgical History HEENT History: Reports: Cataract, Impaired Vision, Other (See Below) Other HEENT History: wears glasses Cardiovascular History: Reports: Hypertension, SOB on Exertion Respiratory History: Reports: Bronchitis, Recurrent, Sleep Apnea, SOB Gastrointestinal History: Reports: Gastritis, Other (See Below) Other Gastrointestinal History: chronic stomach pains. 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 OSTEOMELITIS OF RIGHT FOOT Neurological History: Reports: Other (See Below) Other Neuro History: SOMNOLENCE, DAYTIME, nerve damage to back and legs Psychiatric History: Reports: Anxiety, Eating Disorders Endocrine/Metabolic History: Reports: Diabetes, Type II, IDDM, Obesity/BMI 30+ Hematologic History: Reports: Iron Deficiency, Other (See Below) Other Hematologic History: HX OF SEPSIS. HX OF MRSA INFECTION Immunologic History: Reports: Immunosuppression, Other (See Below) Other Immunologic History: RA Oncologic (Cancer) History: Reports: None Dermatologic History: Reports: Cellulitis, Other (See Below) Other Dermatologic History: hx of mrsa. HX OF SKIN ULCERS OF FOOT, BILAT. DIABETIC SKIN ULCERS. CELLULITIS OF L ANTERIOR LOWER LEG. BIOPSY OF SKIN LESION - Infectious Disease History Infectious Disease History: Reports: Chicken Pox, MRSA - Past Surgical History HEENT Surgical History: Reports: None Cardiovascular Surgical History: Reports: None Musculoskeletal Surgical History: Reports: Amputation, Other (See Below) Other Musculoskeletal Surgeries/Procedures:: right toe ampulation Oncologic Surgical History: Reports: None Social & Family History - Family History Family Medical History: Noncontributory HEENT: Reports: None Cardiac: Reports: None Respiratory: Reports: None GI: Reports: None : Reports: None OBGYN: Reports: None Musculoskeletal: Reports: RA Neurological: Reports: None Psychiatric: Reports: Depression Endocrine/Metabolic: Reports: Diabetes, type II Hematologic: Reports: None Immunologic: Reports: None Dermatologic: Reports: None Oncologic: Reports: None - Tobacco Use Smoking Status *Q: Never Smoker Years of Tobacco use: 6 Packs/Tins Daily: 0.5 Used Tobacco, but Quit: Yes Month Tobacco Last Used: February Second Hand Smoke Exposure: No - Caffeine Use Caffeine Use: Reports: Soda Caffeine Use Comment: 3/day - Alcohol Use Days Per Week of Alcohol Use: 0 - Recreational Drug Use Recreational Drug Use: No Drug Use in Last 12 Months: No - Living Situation & Occupation Living situation: Reports: with Family Review of Systems - Review of Systems Review Of Systems: ROS reveals no pertinent complaints other than HPI. ED EXAM, GENERAL - Physical Exam Exam: See Below Exam Limited By: Other (abdominal exam limited by severe obesity) General Appearance: Alert, No Apparent Distress, Obese, Other (chronically ill appearing, uncomfortable but non-toxic appearing) Eye Exam: Bilateral Eye: Normal Inspection Nose: Normal Inspection Throat/Mouth: Normal Oropharynx, Normal Voice, No Airway Compromise, Other (dry oral membranes) Head: Atraumatic, Normocephalic Neck: Normal Inspection, Supple, Non-Tender, Full Range of Motion Respiratory/Chest: No Respiratory Distress, Lungs Clear, Normal Breath Sounds, No Accessory Muscle Use, Chest Non-Tender Cardiovascular: Regular Rate, Rhythm, Tachycardia GI/Abdominal: Soft, No Distention, Pelvis Stable, Tender (RLQ, suprapubic, and LUQ with no peritoneal signs), Abnormal Bowel Sounds (hypoactive bowel), Other ( exam limited by obesity). No: Guarding, Rigid, Rebound (Female) Exam: Deferred Rectal (Female) Exam: Deferred Back Exam: Normal Inspection, CVA Tenderness (L) (mild). No: CVA Tenderness (R) Extremities: Limited Range of Motion (Rt hip tender, with decreased ROM, no visible swelling, bruising, or deformity. Skin dry and intact.). No: Joint Swelling, Increased Warmth, Redness Neurological: Alert, Oriented, CN II-XII Intact, Normal Cognition, No Motor/ Sensory Deficits Psychiatric: Normal Affect, Normal Mood Skin Exam: Warm, Dry, Intact, Normal Color, No Rash Course - Vital Signs Last Recorded V/S: Last Vital Signs Temp 36.9 C 04/13/17 16:55 Pulse 94 04/13/17 16:55 Resp 18 04/13/17 16:55 BP 114/55 L 04/13/17 16:55 Pulse Ox 96 04/13/17 16:55 - Orders/Labs/Meds Orders: Active Orders 24 hr Category Date Time Status Blood Glucose Check, Bedside [RC] ONETIME Care 04/13/17 16:57 Active Abdomen Pelvis w Cont [CT] Stat Exams 04/13/17 15:21 Taken Hip Min 2V or 3V w Pelvis Rt [CR] Stat Exams 04/13/17 13:54 Taken CULTURE BLOOD [BC] Stat Lab 04/13/17 17:30 Ordered CULTURE BLOOD [BC] Stat Lab 04/13/17 17:30 Ordered LACTIC ACID [CHEM] Stat Lab 04/13/17 17:29 Ordered Piperacillin/Tazobactam [Zosyn] 3.375 gm Med 04/13/17 17:30 Active Sodium Chloride 0.9% [Normal Saline] 100 ml IV ONETIME Blood Culture x2 Reflex Set [OM.PC] Stat Oth 04/13/17 17:30 Ordered Medication Orders Piperacillin Sod/Tazobactam (Sod 3.375 gm/ Sodium Chloride) 100 mls @ 200 mls/ hr IV ONETIME ONE Stop: 04/13/17 17:59 Labs: Laboratory Tests 04/13/17 04/13/17 04/13/17 Range/Units 14:53 14:53 16:24 WBC 10.1 H (5.0-10.0) 10^3/uL RBC 4.18 L (4.2-5.4) 10^6/uL Hgb 10.9 L (12.0-16.0) g/dL Hct 35.2 L (37.0-47.0) % MCV 84.2 D (80-100) fL MCH 26.1 L (27.0-34.0) pg MCHC 31.0 L (33.0-35.0) g/dL Plt Count 431 D (150-450) 10^3/uL Neut % (Auto) 83.9 H (42.2-75.2) % Lymph % (Auto) 11.7 L (20.5-50.1) % [place] % (Auto) 3.5 (2-8) % Eos % (Auto) 0.9 L (1.0-3.0) % Baso % (Auto) 0.0 (0.0-1.0) % Sodium 128 L (135-145) mmol/L Potassium 4.4 (3.6-5.0) mmol/L Chloride 99 L (101-111) mmol/L Carbon Dioxide 20.0 L (21.0-31.0) mmol/L Anion Gap 13.4 BUN 11 (7-18) mg/dL Creatinine 0.9 (0.6-1.3) mg/dL Est Cr Clr Drug Dosing 83.62 mL/min Estimated GFR (MDRD) > 60 BUN/Creatinine Ratio 12.22 Glucose 473 H* (74-105) mg/dL POC Glucose (70-105) mg/dl Calcium 8.5 (8.4-10.2) mg/dl Total Bilirubin 0.5 (0.2-1.0) mg/dL AST 22 (10-42) IU/L ALT 11 (10-60) IU/L Alkaline Phosphatase 61 (42-121) IU/L Total Protein 7.5 (6.7-8.2) g/dl Albumin 2.8 L (3.2-5.5) g/dl Globulin 4.7 Albumin/Globulin Ratio 0.60 Urine Color Yellow (YELLOW) Urine Appearance Cloudy (CLEAR) Urine pH 6.5 (5.0-9.0) Ur Specific [place] 1.015 (1.005-1.030) Urine Protein 100 H (NEGATIVE) Urine Glucose (UA) 500 H (NEGATIVE) Urine Ketones Negative (NEGATIVE) Urine Occult Blood Trace-lysed H (NEGATIVE) Urine Nitrite Positive H (NEGATIVE) Urine Bilirubin Negative (NEGATIVE) Urine Urobilinogen 0.2 (0.2-1.0) mg/dL Ur Leukocyte Esterase Negative (NEGATIVE) Urine RBC 10-20 H /HPF Urine WBC 10-20 H (0-5/HPF) /HPF Ur Epithelial Cells Moderate H /HPF Urine Bacteria Many H (0-FEW/HPF) /HPF Urine Mucus Moderate H /LPF 04/13/17 Range/Units 17:17 WBC (5.0-10.0) 10^3/uL RBC (4.2-5.4) 10^6/uL Hgb (12.0-16.0) g/dL Hct (37.0-47.0) % MCV (80-100) fL MCH (27.0-34.0) pg MCHC (33.0-35.0) g/dL Plt Count (150-450) 10^3/uL Neut % (Auto) (42.2-75.2) % Lymph % (Auto) (20.5-50.1) % [place] % (Auto) (2-8) % Eos % (Auto) (1.0-3.0) % Baso % (Auto) (0.0-1.0) % Sodium (135-145) mmol/L Potassium (3.6-5.0) mmol/L Chloride (101-111) mmol/L Carbon Dioxide (21.0-31.0) mmol/L Anion Gap BUN (7-18) mg/dL Creatinine (0.6-1.3) mg/dL Est Cr Clr Drug Dosing mL/min Estimated GFR (MDRD) BUN/Creatinine Ratio Glucose (74-105) mg/dL POC Glucose 344 H (70-105) mg/dl Calcium (8.4-10.2) mg/dl Total Bilirubin (0.2-1.0) mg/dL AST (10-42) IU/L ALT (10-60) IU/L Alkaline Phosphatase (42-121) IU/L Total Protein (6.7-8.2) g/dl Albumin (3.2-5.5) g/dl Globulin Albumin/Globulin Ratio Urine Color (YELLOW) Urine Appearance (CLEAR) Urine pH (5.0-9.0) Ur Specific [place] (1.005-1.030) Urine Protein (NEGATIVE) Urine Glucose (UA) (NEGATIVE) Urine Ketones (NEGATIVE) Urine Occult Blood (NEGATIVE) Urine Nitrite (NEGATIVE) Urine Bilirubin (NEGATIVE) Urine Urobilinogen (0.2-1.0) mg/dL Ur Leukocyte Esterase (NEGATIVE) Urine RBC /HPF Urine WBC (0-5/HPF) /HPF Ur Epithelial Cells /HPF Urine Bacteria (0-FEW/HPF) /HPF Urine Mucus /LPF Meds: Medications Generic Name Dose Route Start Last Admin Trade Name Freq PRN Reason Stop Dose Admin Piperacillin Sod/Tazobactam 100 mls @ 200 mls/hr 04/13/17 17:30 Sod 3.375 gm/ Sodium Chloride IV 04/13/17 17:59 ONETIME ONE Discontinued Medications Generic Name Dose Route Start Last Admin Trade Name Freq PRN Reason Stop Dose Admin Ceftriaxone Sodium 2 gm 04/13/17 17:23 Rocephin IVPUSH 04/13/17 17:24 ONETIME ONE Hydromorphone HCl 1 mg 04/13/17 15:20 04/13/17 15:35 Dilaudid IVPUSH 04/13/17 15:21 1 mg ONETIME ONE Administration Sodium Chloride 1,000 mls @ 999 mls/hr 04/13/17 15:20 04/13/17 16:10 Normal Saline IV 04/13/17 16:20 999 mls/hr .BOLUS ONE Administration Insulin Human Regular 15 unit 04/13/17 15:20 04/13/17 15:32 Humulin R SUBCUT 04/13/17 15:21 15 units ONETIME ONE Administration Protocol Iopamidol 100 ml 04/13/17 15:19 04/13/17 15:47 Isovue-300 (61%) IVPUSH 04/13/17 15:20 100 ml ONETIME ONE Administration Ondansetron HCl 4 mg 04/13/17 15:20 04/13/17 15:33 Zofran IV 04/13/17 15:21 4 mg ONETIME ONE Administration - Radiology Interpretation Free Text/Narrative:: CT scan abdomen and pelvis: Interval development of an exophytic inflammatory process in the upper pole of the left kidney at the previous site of a probable cyst. This may represent an abscess. Less likely, this may represent the sequela of cyst rupture. See discussion above. Recommend followup CT following completion of treatment to insure resolution. Hepatomegaly with mild fatty infiltrate of the liver. Probable mild small bowel ileus. No evidence of bowel obstruction. Additional non-emergent findings as detailed above. See Rad report. Xray Rt hip: No fracture, dislocation or hip joint DJD. Dilated small bowel loops in the right lower quadrant which may represent ileus. Correlate clinically and consider correlation with an abdominal series. See rad report. CT Results Date: 04/13/17 Departure - Departure Time of Disposition: 17:40 (admit to Dr. 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 Qualified Code(s): E11.65 - Type 2 diabetes mellitus with hyperglycemia; Z79.4 - [facility] (current) use of insulin; Z79.4 - [facility] ( current) use of insulin; Z79.4 - [facility] (current) use of insulin; Z79.4 - [facility] (current) use of insulin - Discharge Information Forms: ED Department Discharge - My Orders Last 24 Hours: My Active Orders 04/13/17 13:54 Hip Min 2V or 3V w Pelvis Rt [CR] Stat 04/13/17 15:21 Abdomen Pelvis w Cont [CT] Stat 04/13/17 16:57 Blood Glucose Check, Bedside [RC] ONETIME 04/13/17 17:29 LACTIC ACID [CHEM] Stat 04/13/17 17:30 CULTURE BLOOD [BC] Stat CULTURE BLOOD [BC] Stat Piperacillin/Tazobactam [Zosyn] 3.375 gm Sodium Chloride 0.9% [Normal Saline] 100 ml IV ONETIME Blood Culture x2 Reflex Set [OM.PC] Stat - Assessment/Plan Last 24 Hours: My Active Orders 04/13/17 13:54 Hip Min 2V or 3V w Pelvis Rt [CR] Stat 04/13/17 15:21 Abdomen Pelvis w Cont [CT] Stat 04/13/17 16:57 Blood Glucose Check, Bedside [RC] ONETIME 04/13/17 17:29 LACTIC ACID [CHEM] Stat 04/13/17 17:30 CULTURE BLOOD [BC] Stat CULTURE BLOOD [BC] Stat Piperacillin/Tazobactam [Zosyn] 3.375 gm Sodium Chloride 0.9% [Normal Saline] 100 ml IV ONETIME Blood Culture x2 Reflex Set [OM.PC] Stat
[2017-04-13 15:17] LABS: CHLORIDE,CL 99 mmol/L (101-111); SODIUM,NA 128 mmol/L (135-145)
[2017-04-13] MEDS ORDERED: Iopamidol 612 MG/ML 100 ML Bottle IVPUSH ONE (15:19)
[2017-04-13] MEDS ORDERED: HYDROmorphone 1 MG/ML Syringe IVPUSH ONE (15:20)
[2017-04-13] MEDS ORDERED: Ondansetron 4 MG/2 ML SDV IV ONE (15:20)
[2017-04-13] MEDS ORDERED: Sodium Chloride 0.9% 1,000 ML IV ONE (15:20)
[2017-04-13] MEDS ORDERED: Insulin Regular, Human 100 Units/ML 3 ML Vial SUBCUT ONE (15:20)
[2017-04-13] MEDS ORDERED: cefTRIAXone 2 GM Vial IVPUSH ONE (17:23)
[2017-04-13] MEDS ORDERED: Piperacillin/Tazobactam 3.375 GM in Sodium Chloride 0.9% 100 ML IV ONE (17:30)
[2017-04-13] MEDS ORDERED: FLU VAC QS 17-18(4YR UP)CEL/PF 60 MCG/0.5 ML Syringe IM ONE (18:45)
[2017-04-13] MEDS ORDERED: Acetaminophen 325 MG Tab PO PRN (18:51)
[2017-04-13] MEDS ORDERED: Ondansetron 4 MG Tab.DIS PO PRN (18:51)
[2017-04-13] MEDS ORDERED: Acetaminophen/oxyCODONE 325-5 MG Tab PO PRN (18:51)
[2017-04-13] MEDS ORDERED: Magnesium Hydroxide 400 MG/5 ML Susp 30 ML Cup PO PRN (18:51)
[2017-04-13] MEDS ORDERED: Zolpidem 5 MG Tab PO PRN (18:51)
[2017-04-13] MEDS ORDERED: Albuterol 0.083% 2.5 MG/3 ML Neb Soln NEB PRN (18:56)
[2017-04-13] MEDS: Insulin Aspart 100 Units/ML 3 ML Pen SUBCUT SCH (19:52)
[2017-04-13] MEDS: Ascorbic Acid 500 MG Tab PO SCH (19:53)
[2017-04-13] MEDS: Sodium Chloride 0.9% 1,000 ML IV SCH (20:10)
[2017-04-13] MEDS: Ferrous Sulfate 325 MG Tab PO SCH (20:10)
[2017-04-13] MEDS: rOPINIRole 2 MG Tab PO SCH (20:12)
[2017-04-13] MEDS: Oxybutynin 5 MG Tab.ER PO SCH (20:12)
[2017-04-13] MEDS: Pregabalin 75 MG Cap PO SCH (20:13)
[2017-04-13] MEDS: Insulin Detemir 100 Units/ML 3 ML Pen SUBCUT SCH (20:13)
[2017-04-13] MEDS: predniSONE 20 MG Tab PO SCH (20:13)
[2017-04-13] MEDS: Morphine 2 MG/ML Syringe IVPUSH PRN (20:13)
[2017-04-14] MEDS: Piperacillin/Tazobactam 3.375 GM in Sodium Chloride 0.9% 100 ML IV SCH ×4 (02:22→20:57)
[2017-04-14] MEDS: Acetaminophen/oxyCODONE 325-5 MG Tab PO PRN ×2 (02:40→10:27)
[2017-04-14] MEDS: Pantoprazole 40 MG Tab.CR PO SCH (06:16)
[2017-04-14 06:58] LABS: CHLORIDE,CL 103 mmol/L (101-111); SODIUM,NA 134 mmol/L (135-145)
--- NOTE | 2017-04-14 07:24 | HP ---
CHIEF COMPLAINT: Right hip pain, abdominal pain, nausea, vomiting. HISTORY OF PRESENTING ILLNESS: Mrs. Talita Askew is a 41-year-old female with medical history significant for hypertension, hyperlipidemia; rheumatoid arthritis, on chronic immunosuppressive therapy with steroids and also on Enbrel; type 2 diabetes mellitus, on insulin regimen; history of osteomyelitis involving the right foot, requiring debridement and incision and amputation of the right toes; presented to the ER today with complaints of increasing abdominal pain and right hip pain along with nausea and vomiting. The patient says that the abdominal pain and the right hip pain has been going on for the last 3 to 4 weeks which has been progressively getting worse. She grades the pain as 5 to 6/10 in intensity, which gets aggravated on movement and ambulation, relieved with rest and pain medication, nonradiating type of pain, associated with nausea and vomiting. The patient had few episodes of vomiting prior to coming to the emergency room. She is able to move gas and had some bowel movement this morning. She denied any fevers or chills in the last few days, but felt like cold and chills, did not take her temperature at home. Denies any chest pain. No shortness of breath. The patient also has some chronic pain syndrome, requiring pain medications. The patient denied any history of chest pains on exertion. No history of dyspnea on exertion. No history of orthopnea or paroxysmal nocturnal dyspnea. The patient denied any history of hematemesis, hematochezia, or melenic stools. Normal bowel and bladder habits otherwise. REVIEW OF SYSTEMS: A complete review of system including skin, ear, nose, and throat, cardiovascular system, respiratory system, gastrointestinal system, genitourinary system, hematology, oncology, neurology, allergy, immunology, constitutional were all evaluated and were negative except for the above-said notes. PAST MEDICAL HISTORY: Significant for hypertension, hyperlipidemia, type 2 diabetes mellitus, fibromyalgia, obesity, rheumatoid arthritis, on chronic immunosuppressive therapy, bronchitis, scoliosis . PAST SURGICAL HISTORY: Significant for hand surgery, incision and drainage of the abscess, biopsy of the skin lesion, cataract extraction, central venous catheter placement, status post amputation of the right foot toes. FAMILY HISTORY: Significant for heart disease and diabetes in her mother and heart disease in her father, both . SOCIAL HISTORY: Former smoker. Denied any recent use of tobacco. No history of alcohol intake. ALLERGIES: The patient noted to have allergies to Retoxor and daptomycin. PHYSICAL EXAMINATION: Vital Signs: Temperature of 97.9, pulse of 93, blood pressure 107/56, respiratory rate of 16, saturating at 96% on room air. General appearance: The patient is well oriented to time, place, and person. Follows commands spontaneously. Cardiovascular system: S1, S2 heard with normal intensity. No gallops. Respiratory System: Clear to auscultation bilaterally. No wheeze. No crepitations. Abdomen: Soft. Bowel sounds positive. Slightly tender in the right lower quadrant and also on the groin area on the right side. Extremities: The patient has tenderness to the muscle groups on the right thigh also, but no evidence of cellulitis. No evidence of erythema. No evidence of any open wounds noted. No edema to the lower extremities. Partial amputation of toes on the right foot. Neurology: No gross focal neurological deficit. HOME MEDICATIONS: 1. Requip 1 mg at bedtime. 2. Prednisone 9 mg daily. 3. Cyclosporine 1 drop both daily. 4. Lyrica 150 mg at bedtime. 5. Protonix 40 mg daily. 6. Oxybutynin 5 mg at bedtime. 7. Multivitamin 1 tablet daily. 8. Lisinopril 2.5 mg daily. 9. NovoLog 30 units twice a day. 10.Lantus 35 units twice a day. 11.Enbrel 25 mg subcutaneous as directed. 12.Cymbalta 60 mg daily. 13.Vitamin D3 of 400 units daily. 14.Albuterol 2.5 mg nebulizer 4 times a day as needed. LABORATORY DATA: WBC 10.1, hemoglobin 10.9, hematocrit 35.2, platelet count of 431. Sodium 128, potassium 4.4, chloride 99, bicarb 20, BUN 11, creatinine 0.9, glucose of 473. AST 22, ALT 11, alkaline phosphatase 61. Urinalysis; 10 to 20 wbc, 10 to 20 rbc, epithelial cells moderate, bacteria many, moderate mucus cells. ASSESSMENT: 1. Possible cyst versus abscess on the left kidney upper pole. 2. Right groin pain. 3. Hypertension. 4. Hyperlipidemia. 5. Type 2 diabetes mellitus. 6. Rheumatoid arthritis. 7. Chronic immunosuppressive therapy. 8. Possible pyelonephritis. PLAN: 1. Pyelonephritis. The patient is noted to have urinary tract infection and possible pyelonephritis. The patient is noted to have some abnormal findings on the CAT scan involving the left kidney. There was an exophytic inflammatory process with stranding of the adjacent perinephric fat, measuring 4 x 2.9 x 2.9 cm, possible infected cyst versus abscess. No hydroureteronephrosis noted at this time. The patient will be admitted to the hospital. We will have her on IV antibiotic with Zosyn and vancomycin for now. The patient had history of MRSA in the past. One might consider repeating the CT scan in the next 2 to 3 days for resolution of this mass. If not, then the patient might need further evaluation and possible drainage of the abscess. We will closely follow. The patient does not have any pain to the left side of the abdomen. 2. Right groin pain. The patient is complaining of increasing right groin pain and is unable to flex her right thigh. CT scan of the abdomen and pelvis did not show any evidence of avascular necrosis or any acute pathology. No pathology noted on the spinous process also. If pain persists, then one might consider getting a CT scan of the right hip for further evaluation and the CT scan of the lumbar spine for further evaluation to explain for this intense pain involving the right thigh region, but no obvious cellulitis or any infectious source identified at this time involving the right hip. 3. Hypertension. The patient's blood pressure seems to be on the lower side. Try to avoid any antihypertensive medications for now. 4. Type 2 diabetes mellitus. The patient is noted to be on insulin regimen, continue the same. Check her fingersticks with each meals. Have her on supplemental scale insulin as needed for additional coverage of her blood glucose. 5. DVT prophylaxis. We will have her on Lovenox for DVT prophylaxis. 6. Rheumatoid arthritis. The patient has chronic history of rheumatoid arthritis. We will continue with Enbrel and steroid. With ongoing infection, the patient may need booster dose of steroids. 7. Hyponatremia. The patient was noted to have sodium of 128. This could be resulting from nausea and vomiting and intense pain. We will obtain serum osmolality, urine osmolality, and urine electrolytes, and start her on IV fluids. Recheck a sodium later tonight and also in a.m. Closely follow. 8. Code status. The patient wants to be full code. 9. Discussed with Dr. Dillon, ER physician, regarding the plan of care. Reviewed the labs and medications. Reviewed the old chart. [facility] /[id number]
[2017-04-14] MEDS: Ferrous Sulfate 325 MG Tab PO SCH ×3 (08:00→17:38)
[2017-04-14] MEDS: Ascorbic Acid 500 MG Tab PO SCH ×3 (08:00→17:37)
[2017-04-14] MEDS: Insulin Aspart 100 Units/ML 3 ML Pen SUBCUT SCH ×9 (08:10→21:52)
[2017-04-14] MEDS ORDERED: predniSONE 5 MG Tab PO SCH (09:00)
[2017-04-14] MEDS: DULoxetine 30 MG Cap PO SCH (09:10)
[2017-04-14] MEDS: predniSONE 20 MG Tab PO SCH (09:10)
[2017-04-14] MEDS: Cholecalciferol (Vitamin D3) 400 Unit Tab PO SCH (09:10)
[2017-04-14] MEDS: Multivitamins,Therapeutic Tab PO SCH (09:10)
[2017-04-14] MEDS: Enoxaparin 40 MG/0.4 ML Syringe SUBCUT SCH (09:10)
[2017-04-14] MEDS: cycloSPORINE Ophth Drops U/D Box of 30 EYEBOTH SCH (09:11)
[2017-04-14] MEDS: Insulin Detemir 100 Units/ML 3 ML Pen SUBCUT SCH ×2 (09:14→21:54)
[2017-04-14] MEDS: Morphine 2 MG/ML Syringe IVPUSH PRN ×3 (09:22→23:39)
--- NOTE | 2017-04-14 13:08 | PCM.PN ---
- General Info Date of Service: 04/14/17 Subjective Update: Feeling generalized achiness, continues to have a right groin pain which is worse with movements sharp nonradiating. Has been present for 3 for weeks. Today was able to get out of bed to the chair at least on her own, which is an improvement No nausea, vomiting, abdominal pain - Patient Data Vitals - Most Recent: Last Vital Signs Temp 36.6 C 04/14/17 11:00 Pulse 91 04/14/17 11:00 Resp 20 04/14/17 11:00 BP 101/50 L 04/14/17 11:00 Pulse Ox 97 04/14/17 11:00 Weight - Most Recent: 120.293 kg I&O - Last 24 Hours: Intake & Output 04/13/17 04/14/17 04/14/17 22:59 06:59 14:59 Intake Total 2554 750 Output Total 400 Balance -400 2554 750 Lab Results Last 24 Hours: Laboratory Results - last 24 hr 04/13/17 04/14/17 04/14/17 Range/Units 22:48 06:16 06:16 WBC 7.0 (5.0-10.0) 10^3/uL RBC 3.56 L (4.2-5.4) 10^6/uL Hgb 9.3 L D (12.0-16.0) g/dL Hct 30.6 L (37.0-47.0) % MCV 86.0 (80-100) fL MCH 26.1 L (27.0-34.0) pg MCHC 30.4 L (33.0-35.0) g/dL Plt Count 386 (150-450) 10^3/uL Sodium 134 L (135-145) mmol/L Potassium 4.2 (3.6-5.0) mmol/L Chloride 103 (101-111) mmol/L Carbon Dioxide 24.0 (21.0-31.0) mmol/L Anion Gap 11.2 BUN 10 (7-18) mg/dL Creatinine 0.8 (0.6-1.3) mg/dL Est Cr Clr Drug Dosing 92.41 mL/min Estimated GFR (MDRD) > 60 Glucose 258 H (74-105) mg/dL POC Glucose 218 H (70-105) mg/dl Calcium 8.0 L (8.4-10.2) mg/dl Phosphorus 3.8 (2.5-4.6) mg/dL Magnesium 1.8 (1.8-2.5) mg/dL 04/14/17 04/14/17 Range/Units 08:09 11:37 WBC (5.0-10.0) 10^3/uL RBC (4.2-5.4) 10^6/uL Hgb (12.0-16.0) g/dL Hct (37.0-47.0) % MCV (80-100) fL MCH (27.0-34.0) pg MCHC (33.0-35.0) g/dL Plt Count (150-450) 10^3/uL Sodium (135-145) mmol/L Potassium (3.6-5.0) mmol/L Chloride (101-111) mmol/L Carbon Dioxide (21.0-31.0) mmol/L Anion Gap BUN (7-18) mg/dL Creatinine (0.6-1.3) mg/dL Est Cr Clr Drug Dosing mL/min Estimated GFR (MDRD) Glucose (74-105) mg/dL POC Glucose 229 H 175 H (70-105) mg/dl Calcium (8.4-10.2) mg/dl Phosphorus (2.5-4.6) mg/dL Magnesium (1.8-2.5) mg/dL Med Orders - Current: Current Medications Acetaminophen (Tylenol) 650 mg PO Q4H PRN PRN Reason: Pain (Mild 1-3)/fever Albuterol (Proventil Neb Soln) 2.5 mg NEB QIDRT PRN PRN Reason: Wheezing Ascorbic Acid (Vitamin C) 250 mg PO TIDMEALS [facility] Last Admin: 04/14/17 12:25 Dose: 250 mg Cholecalciferol (Vitamin D3) 400 units PO DAILY [facility] Last Admin: 04/14/17 09:10 Dose: 400 units Cyclosporine (Restasis) 0 each EYEBOTH DAILY [facility] Last Admin: 04/14/17 09:11 Dose: 1 drop Duloxetine HCl (Cymbalta) 60 mg PO DAILY [facility] Last Admin: 04/14/17 09:10 Dose: 60 mg Enoxaparin Sodium (Lovenox) 40 mg SUBCUT DAILY [facility] Last Admin: 04/14/17 09:10 Dose: 40 mg Ferrous Sulfate (Ferrous Sulfate) 325 mg PO TIDMEALS [facility] Last Admin: 04/14/17 12:25 Dose: 325 mg Sodium Chloride (Normal Saline) 1,000 mls @ 100 mls/hr IV ASDIRECTED [facility] Last Admin: 04/13/17 20:10 Dose: 100 mls/hr Piperacillin Sod/Tazobactam (Sod 3.375 gm/ Sodium Chloride) 100 mls @ 200 mls/ hr IV Q6H [facility] Last Infusion: 04/14/17 12:05 Dose: Infused Vancomycin HCl 1 gm/ Sodium (Chloride) 250 mls @ 166.667 mls/hr IV Q8H [facility] Last Admin: 04/14/17 12:30 Dose: 166.667 mls/hr Insulin Aspart (Novolog) 30 unit SUBCUT BIDMEALS [facility] Last Admin: 04/14/17 08:10 Dose: 30 units Insulin Aspart (Novolog) 0 unit SUBCUT ACBED [facility] PRN Reason: Protocol Last Admin: 04/14/17 12:32 Dose: 2 units Insulin Detemir (Levemir) 35 unit SUBCUT BID [facility] Last Admin: 04/14/17 09:14 Dose: 35 units Magnesium Hydroxide (Milk Of Magnesia) 30 ml PO Q12H PRN PRN Reason: Constipation Morphine Sulfate (Morphine) 2 mg IVPUSH Q2H PRN PRN Reason: Pain (severe 7-10) Last Admin: 04/14/17 09:22 Dose: 2 mg Multivitamins (Thera) 1 each PO DAILY [facility] Last Admin: 04/14/17 09:10 Dose: 1 each Non-FormEnbrel (25 Mg Inj) 25 mg SQ ASDIRECTED [facility] Ondansetron HCl (Zofran Odt) 4 mg PO Q4H PRN PRN Reason: nausea, able to take PO Last Admin: 04/13/17 20:13 Dose: 4 mg Oxybutynin Chloride (Oxybutynin Er) 5 mg PO BEDTIME [facility] Last Admin: 04/13/17 20:12 Dose: 5 mg Oxycodone/Acetaminophen (Percocet 325-5 Mg) 2 tab PO Q4H PRN PRN Reason: Pain (moderate 4-6) Last Admin: 04/14/17 10:27 Dose: 2 tab Pantoprazole Sodium (Protonix) 40 mg PO ACBREAKFAST [facility] Last Admin: 04/14/17 06:16 Dose: 40 mg Prednisone (Prednisone) 20 mg PO DAILY [facility] Last Admin: 04/14/17 09:10 Dose: 20 mg Pregabalin (Lyrica) 150 mg PO BEDTIME [facility] Last Admin: 04/13/17 20:13 Dose: 150 mg Ropinirole HCl (Requip) 1 mg PO BEDTIME [facility] Last Admin: 04/13/17 20:12 Dose: 1 mg Senna/Docusate Sodium (Senna Plus) 1 tab PO BEDTIME PRN PRN Reason: Constipation Vancomycin HCl (Pharmacy To Dose - Vancomycin) 1 dose .XX ASDIRECTED [facility] Zolpidem Tartrate (Ambien) 5 mg PO BEDTIME PRN PRN Reason: Sleep Last Admin: 04/13/17 20:13 Dose: 5 mg Discontinued Medications Ceftriaxone Sodium (Rocephin) 2 gm IVPUSH ONETIME ONE Stop: 04/13/17 17:24 Last Admin: 04/13/17 19:43 Dose: Not Given Hydromorphone HCl (Dilaudid) 1 mg IVPUSH ONETIME ONE Stop: 04/13/17 15:21 Last Admin: 04/13/17 15:35 Dose: 1 mg Sodium Chloride (Normal Saline) 1,000 mls @ 999 mls/hr IV .BOLUS ONE Stop: 04/13/17 16:20 Last Admin: 04/13/17 16:10 Dose: 999 mls/hr Piperacillin Sod/Tazobactam (Sod 3.375 gm/ Sodium Chloride) 100 mls @ 200 mls/ hr IV ONETIME ONE Stop: 04/13/17 17:59 Last Admin: 04/13/17 17:42 Dose: 200 mls/hr Vancomycin HCl 1 gm/ Sodium (Chloride) 250 mls @ 166.667 mls/hr IV Q8H [facility] Last Admin: 04/14/17 03:10 Dose: 166.667 mls/hr Influenza Virus Vaccine (Pharmacy To Dose - Influenza Vaccine) 1 each IM ONETIME ONE Stop: 04/13/17 18:26 Influenza Virus Vaccine (Flucelvax Quad [id number]) 60 mcg IM .ONCE ONE Stop: 04/13/17 18:46 Last Admin: 04/13/17 19:58 Dose: Not Given Insulin Human Regular (Humulin R) 15 unit SUBCUT ONETIME ONE PRN Reason: Protocol Stop: 04/13/17 15:21 Last Admin: 04/13/17 15:32 Dose: 15 units Iopamidol (Isovue-300 (61%)) 100 ml IVPUSH ONETIME ONE Stop: 04/13/17 15:20 Last Admin: 04/13/17 15:47 Dose: 100 ml Ondansetron HCl (Zofran) 4 mg IV ONETIME ONE Stop: 04/13/17 15:21 Last Admin: 04/13/17 15:33 Dose: 4 mg Oxycodone/Acetaminophen (Percocet 325-5 Mg) 1 tab PO Q4H PRN PRN Reason: Pain (moderate 4-6) Prednisone (Prednisone) 9 mg PO DAILY NELLY - Exam General: Alert Neck: Supple Lungs: Clear to Auscultation, Normal Respiratory Effort Cardiovascular: Regular Rate, Regular Rhythm GI/Abdominal Exam: Normal Bowel Sounds, Soft, Non-Tender, Other (Obese) Back Exam: Normal Inspection Extremities: No Pedal Edema, Limited Range of Motion (Right hip due to pain). No: Joint Swelling Skin: Warm, Dry Neurological: No New Focal Deficit Psy/Mental Status: Alert, Normal Affect, Normal Mood - Problem List & Annotations (1) Abscess of left kidney SNOMED Code(s): 5305077 Code(s): N15.1 - RENAL AND PERINEPHRIC ABSCESS Status: Acute Current Visit: Yes (2) Chronic right hip pain SNOMED Code(s): 52605091 Code(s): M25.551 - PAIN IN RIGHT HIP; G89.29 - OTHER CHRONIC PAIN Status: Acute Current Visit: Yes (3) History of rheumatoid arthritis SNOMED Code(s): 026499858 Code(s): Z87.39 - PERSONAL HISTORY OF DISEASES OF THE MS SYS AND CONN TISS Status: Acute Current Visit: Yes (4) Pyelonephritis, acute SNOMED Code(s): 99333739 Code(s): N10 - ACUTE PYELONEPHRITIS Status: Acute Current Visit: Yes - Problem List Review Problem List Initiated/Reviewed/Updated: Yes - My Orders Last 24 Hours: My Active Orders 04/14/17 12:47 CULTURE URINE [RM] Routine 04/14/17 12:48 Glucose [Blood Glucose Check, Bedside] [RC] QIDACANDBED 04/14/17 13:01 INFLUENZA A+B AG SCREEN [RM] Routine - Plan Plan:: Right hip pain CT of the abdomen and pelvis showed no acute pathology related to this area X-ray showed no apparent fracture Pain control with Percocet, IV morphine as needed Diabetes Treat with Levemir and NovoLog Follow blood sugars and supplement as needed Acute pyelonephritis with possible abscess near the upper pole of the left kidney measuring 4 x 2.9 x 2.9 cm with Urinary tract infection Blood cultures are pending Urine culture is pending Treatment started with Zosyn and vancomycin Will need repeat imaging in a few days Complains of cough, generalized body ache With grandchildren diagnosed with flu Will check influenza swab History of rheumatoid arthritis Chronic immunosuppressive therapy with steroids and Enbrel Hyponatremia with a significant pseudohyponatremia component Improving DVT prophylaxis with Lovenox
[2017-04-14] MEDS: Oseltamivir 75 MG Cap PO SCH ×2 (15:33→21:03)
[2017-04-14] MEDS: Sodium Chloride 0.9% 1,000 ML IV SCH (16:08)
[2017-04-14] MEDS: rOPINIRole 2 MG Tab PO SCH (21:03)
[2017-04-14] MEDS: Oxybutynin 5 MG Tab.ER PO SCH (21:03)
[2017-04-14] MEDS: Pregabalin 75 MG Cap PO SCH (21:03)
[2017-04-14] MEDS ORDERED: ENBREL SQ SCH (22:00)
[2017-04-15] MEDS: Piperacillin/Tazobactam 3.375 GM in Sodium Chloride 0.9% 100 ML IV SCH ×2 (02:26→09:51)
[2017-04-15] MEDS: Acetaminophen/oxyCODONE 325-5 MG Tab PO PRN ×3 (02:32→13:31)
[2017-04-15] MEDS: Pantoprazole 40 MG Tab.CR PO SCH (05:51)
[2017-04-15] MEDS: Sodium Chloride 0.9% 1,000 ML IV SCH (07:08)
[2017-04-15] MEDS: Insulin Aspart 100 Units/ML 3 ML Pen SUBCUT SCH ×3 (08:23→12:40)
[2017-04-15] MEDS: Enoxaparin 40 MG/0.4 ML Syringe SUBCUT SCH (09:51)
[2017-04-15] MEDS: Insulin Detemir 100 Units/ML 3 ML Pen SUBCUT SCH (09:52)
[2017-04-15] MEDS: DULoxetine 30 MG Cap PO SCH (09:55)
[2017-04-15] MEDS: Ascorbic Acid 500 MG Tab PO SCH ×2 (09:55→14:12)
[2017-04-15] MEDS: Ferrous Sulfate 325 MG Tab PO SCH ×2 (09:55→13:28)
[2017-04-15] MEDS: predniSONE 20 MG Tab PO SCH (09:55)
[2017-04-15] MEDS: Oseltamivir 75 MG Cap PO SCH (09:55)
[2017-04-15] MEDS: Cholecalciferol (Vitamin D3) 400 Unit Tab PO SCH (09:55)
[2017-04-15] MEDS: Multivitamins,Therapeutic Tab PO SCH (09:55)
[2017-04-15] MEDS: cycloSPORINE Ophth Drops U/D Box of 30 EYEBOTH SCH (10:00)
--- NOTE | 2017-04-15 10:59 | PCM.DCSUM1 ---
Discharge Summary - Hospital Course Free Text/Narrative:: 41-year-old lady with rheumatoid arthritis who has been on steroids and Enbrel Admitted with right hip pain and intra-abdominal abscess Right hip pain CT of the abdomen and pelvis showed no acute pathology related to this area X-ray showed no apparent fracture Pain control with Percocet, IV morphine as needed The patient has received steroid injections in the past with good success Diabetes Treat with Levemir and NovoLog Follow blood sugars and supplement as needed Acute pyelonephritis with possible abscess near the upper pole of the left kidney measuring 4 x 2.9 x 2.9 cm with Urinary tract infection Blood cultures are pending Urine culture is pending Treatment started with Zosyn and vancomycin Will need repeat imaging in a few days or consider interventional radiology drainage Complains of cough, generalized body ache With grandchildren diagnosed with flu Tested positive for influenza B Treat with Tamiflu History of rheumatoid arthritis Chronic immunosuppressive therapy with steroids and Enbrel Consider discontinuation of immunosuppressive therapy Hyponatremia with a significant pseudohyponatremia component present on admission Improving DVT prophylaxis with Lovenox We'll transfer to [facility] in [place] for evaluation for possible IR drainage and consideration of local steroid injection - Discharge Data Discharge Date: 04/15/17 Discharge Disposition: DC/Tfer to [facility] 02 Condition: Fair - Discharge Diagnosis/Problem(s) (1) Abscess of left kidney SNOMED Code(s): 9827778 ICD Code: N15.1 - RENAL AND PERINEPHRIC ABSCESS Status: Acute Current Visit: Yes (2) Chronic right hip pain SNOMED Code(s): 67552761 ICD Code: M25.551 - PAIN IN RIGHT HIP; G89.29 - OTHER CHRONIC PAIN Status: Acute Current Visit: Yes (3) History of rheumatoid arthritis SNOMED Code(s): 640200692 ICD Code: Z87.39 - PERSONAL HISTORY OF DISEASES OF THE MS SYS AND CONN TISS Status: Acute Current Visit: Yes (4) Pyelonephritis, acute SNOMED Code(s): 36687490 ICD Code: N10 - ACUTE PYELONEPHRITIS Status: Acute Current Visit: Yes - Patient Summary/Data Consults: Consultations 04/14/17 13:09 OT Evaluation and Treatment [CONS] Routine PT Evaluation and Treatment [CONS] Routine - Patient Instructions Diet: Diabetic Diet Activity: As Tolerated - Discharge Plan Home Medications: Home Meds Ascorbic Acid [Vitamin C] 250 mg PO TID 03/08/14 [History] predniSONE 9 mg PO DAILY 03/08/14 [History] Ferrous Sulfate [Iron] 325 mg PO TID 09/13/14 [History] Pantoprazole [Pantoprazole Sodium] 40 mg PO DAILY 09/13/14 [History] Albuterol [Proventil Neb Soln] 2.5 mg NEB QIDRT PRN 04/27/15 [History] DULoxetine [Cymbalta] 60 mg PO DAILY 08/07/15 [History] Insulin Glarg,Human.Rec.Analog [LantUS Solostar] 35 units SQ BID 08/07/15 [ History] rOPINIRole [Requip] 1 mg PO BEDTIME 08/13/15 [History] Multivitamin [Multivitamins] 1 each PO DAILY 09/20/15 [History] oxyCODONE HCl/Acetaminophen [Endocet 10-325 mg Tablet] 1 each PO Q4H PRN [History] Lisinopril [Prinivil] 2.5 mg PO DAILY 04/14/16 [History] Oxybutynin [Oxybutynin ER] 5 mg PO BEDTIME 04/14/16 [History] Pregabalin [Lyrica] 150 mg PO BEDTIME 04/14/16 [History] cycloSPORINE [Restasis] 1 drop EYEBOTH DAILY 04/14/16 [History] Insulin Aspart [NovoLOG] 30 units INJECT BID 05/16/16 [History] Cholecalciferol (Vitamin D3) [Vitamin D3] 400 units PO DAILY 04/13/17 [History] Etanercept [Enbrel] 25 mg SQ ASDIRECTED 04/13/17 [History] Enoxaparin [Lovenox] 40 mg SUBCUT DAILY syringe 04/15/17 [Rx] Insulin Aspart [NovoLOG] 0 unit SUBCUT ACBED pen 04/15/17 [Rx] Magnesium Hydroxide [Milk of Magnesia] 30 ml PO Q12H PRN cup 04/15/17 [Rx] Morphine 2 mg IVPUSH Q2H PRN syringe 04/15/17 [Rx] Ondansetron [Zofran ODT] 4 mg PO Q4H PRN tab.dis 04/15/17 [Rx] Oseltamivir Phosphate [IJD: Tamiflu] 75 mg PO BID capsule 04/15/17 [Rx] Vancomycin 1 gm IV Q8H sdv 04/15/17 [Rx] Vancomycin Pharmacy to Dose [Pharmacy to Dose - Vancomycin] 1 dose .XX ASDIRECTED each 04/15/17 [Rx] - Discharge Summary/Plan Comment DC Time >30 min.: Yes (arranging transfer by ambulance, d/w ALteugenia [facility]) - General Info Date of Service: 04/15/17 Admission Dx/Problem (Free Text: 41-year-old lady with rheumatoid arthritis who has been on steroids and Enbrel Admitted with right hip pain and intra-abdominal abscess Subjective Update: Complaining of severe pain in the right hip area, worse with activity, Still occasional cough. Diagnosed with flu. Functional Status: Denies: Pain Controlled - Review of Systems General: Reports: Weakness. Denies: Fever Pulmonary: Denies: Shortness of Breath Cardiovascular: Denies: Chest Pain Genitourinary: Denies: Dysuria - Patient Data Vitals - Most Recent: Last Vital Signs Temp 36.3 C 04/15/17 08:41 Pulse 86 04/15/17 08:41 Resp 20 04/15/17 08:41 BP 99/62 04/15/17 08:41 Pulse Ox 99 04/15/17 08:41 Weight - Most Recent: 120.293 kg I&O - Last 24 hours: Intake & Output 04/14/17 04/15/17 04/15/17 22:59 06:59 14:59 Intake Total 868 1733 Output Total 900 Balance 868 833 Lab Results - Last 24 hrs: Laboratory Results - last 24 hr 04/14/17 04/14/17 04/14/17 Range/Units 11:37 17:14 20:05 Creatinine 1.0 (0.6-1.3) mg/dL Est Cr Clr Drug Dosing 73.93 mL/min Estimated GFR (MDRD) > 60 POC Glucose 175 H 249 H (70-105) mg/dl Vancomycin Trough 17.1 H (10-15) ug/ml 04/14/17 04/15/17 Range/Units 21:11 08:14 Creatinine (0.6-1.3) mg/dL Est Cr Clr Drug Dosing mL/min Estimated GFR (MDRD) POC Glucose 266 H 87 (70-105) mg/dl Vancomycin Trough (10-15) ug/ml JHONNY Results - Last 24 hrs: Microbiology 04/14/17 13:15 Influenza Type A Antigen Screen - Final Nasopharyngeal Swab - Nare, Left NEGATIVE INFLUENZA A VIRUS AG Influenza Type B Antigen Screen - Final Positive Influenza B Ag Med Orders - Current: Current Medications Acetaminophen (Tylenol) 650 mg PO Q4H PRN PRN Reason: Pain (Mild 1-3)/fever Albuterol (Proventil Neb Soln) 2.5 mg NEB QIDRT PRN PRN Reason: Wheezing Last Admin: 04/14/17 21:11 Dose: 2.5 mg Ascorbic Acid (Vitamin C) 250 mg PO TIDMEALS [facility] Last Admin: 04/15/17 09:55 Dose: 250 mg Cholecalciferol (Vitamin D3) 400 units PO DAILY [facility] Last Admin: 04/15/17 09:55 Dose: 400 units Cyclosporine (Restasis) 0 each EYEBOTH DAILY [facility] Last Admin: 04/15/17 10:00 Dose: 1 drop Duloxetine HCl (Cymbalta) 60 mg PO DAILY [facility] Last Admin: 04/15/17 09:55 Dose: 60 mg Enoxaparin Sodium (Lovenox) 40 mg SUBCUT DAILY [facility] Last Admin: 04/15/17 09:51 Dose: 40 mg Ferrous Sulfate (Ferrous Sulfate) 325 mg PO TIDMEALS [facility] Last Admin: 04/15/17 09:55 Dose: 325 mg Sodium Chloride (Normal Saline) 1,000 mls @ 100 mls/hr IV ASDIRECTED [facility] Last Admin: 04/15/17 07:08 Dose: 100 mls/hr Piperacillin Sod/Tazobactam (Sod 3.375 gm/ Sodium Chloride) 100 mls @ 200 mls/ hr IV Q6H [facility] Last Admin: 04/15/17 09:51 Dose: 200 mls/hr Vancomycin HCl 1 gm/ Sodium (Chloride) 250 mls @ 166.667 mls/hr IV Q8H [facility] Last Admin: 04/15/17 04:13 Dose: 166.667 mls/hr Insulin Aspart (Novolog) 30 unit SUBCUT BIDMEALS [facility] Last Admin: 04/15/17 09:53 Dose: 30 units Insulin Aspart (Novolog) 0 unit SUBCUT ACBED [facility] PRN Reason: Protocol Last Admin: 04/15/17 08:23 Dose: Not Given Insulin Detemir (Levemir) 35 unit SUBCUT BID [facility] Last Admin: 04/15/17 09:52 Dose: 35 units Magnesium Hydroxide (Milk Of Magnesia) 30 ml PO Q12H PRN PRN Reason: Constipation Morphine Sulfate (Morphine) 2 mg IVPUSH Q2H PRN PRN Reason: Pain (severe 7-10) Last Admin: 04/14/17 23:39 Dose: 2 mg Multivitamins (Thera) 1 each PO DAILY [facility] Last Admin: 04/15/17 09:55 Dose: 1 each Enbrel 25 Mg Inj (Own Med ) 25 mg SQ TuFr@2200 [facility] Last Admin: 04/14/17 23:57 Dose: 25 mg Ondansetron HCl (Zofran Odt) 4 mg PO Q4H PRN PRN Reason: nausea, able to take PO Last Admin: 04/13/17 20:13 Dose: 4 mg Oseltamivir Phosphate (Tamiflu) 75 mg PO BID [facility] Last Admin: 04/15/17 09:55 Dose: 75 mg Oxybutynin Chloride (Oxybutynin Er) 5 mg PO BEDTIME [facility] Last Admin: 04/14/17 21:03 Dose: 5 mg Oxycodone/Acetaminophen (Percocet 325-5 Mg) 2 tab PO Q4H PRN PRN Reason: Pain (moderate 4-6) Last Admin: 04/15/17 07:23 Dose: 2 tab Pantoprazole Sodium (Protonix) 40 mg PO ACBREAKFAST [facility] Last Admin: 04/15/17 05:51 Dose: 40 mg Prednisone (Prednisone) 20 mg PO DAILY [facility] Last Admin: 04/15/17 09:55 Dose: 20 mg Pregabalin (Lyrica) 150 mg PO BEDTIME [facility] Last Admin: 04/14/17 21:03 Dose: 150 mg Ropinirole HCl (Requip) 1 mg PO BEDTIME [facility] Last Admin: 04/14/17 21:03 Dose: 1 mg Senna/Docusate Sodium (Senna Plus) 1 tab PO BEDTIME PRN PRN Reason: Constipation Vancomycin HCl (Pharmacy To Dose - Vancomycin) 1 dose .XX ASDIRECTED [facility] Zolpidem Tartrate (Ambien) 5 mg PO BEDTIME PRN PRN Reason: Sleep Last Admin: 04/13/17 20:13 Dose: 5 mg Discontinued Medications Ceftriaxone Sodium (Rocephin) 2 gm IVPUSH ONETIME ONE Stop: 04/13/17 17:24 Last Admin: 04/13/17 19:43 Dose: Not Given Hydromorphone HCl (Dilaudid) 1 mg IVPUSH ONETIME ONE Stop: 04/13/17 15:21 Last Admin: 04/13/17 15:35 Dose: 1 mg Sodium Chloride (Normal Saline) 1,000 mls @ 999 mls/hr IV .BOLUS ONE Stop: 04/13/17 16:20 Last Admin: 04/13/17 16:10 Dose: 999 mls/hr Piperacillin Sod/Tazobactam (Sod 3.375 gm/ Sodium Chloride) 100 mls @ 200 mls/ hr IV ONETIME ONE Stop: 04/13/17 17:59 Last Admin: 04/13/17 17:42 Dose: 200 mls/hr Vancomycin HCl 1 gm/ Sodium (Chloride) 250 mls @ 166.667 mls/hr IV Q8H [facility] Last Admin: 04/14/17 03:10 Dose: 166.667 mls/hr Influenza Virus Vaccine (Pharmacy To Dose - Influenza Vaccine) 1 each IM ONETIME ONE Stop: 04/13/17 18:26 Influenza Virus Vaccine (Flucelvax Quad [id number]) 60 mcg IM .ONCE ONE Stop: 04/13/17 18:46 Last Admin: 04/13/17 19:58 Dose: Not Given Insulin Human Regular (Humulin R) 15 unit SUBCUT ONETIME ONE PRN Reason: Protocol Stop: 04/13/17 15:21 Last Admin: 04/13/17 15:32 Dose: 15 units Iopamidol (Isovue-300 (61%)) 100 ml IVPUSH ONETIME ONE Stop: 04/13/17 15:20 Last Admin: 04/13/17 15:47 Dose: 100 ml Ondansetron HCl (Zofran) 4 mg IV ONETIME ONE Stop: 04/13/17 15:21 Last Admin: 04/13/17 15:33 Dose: 4 mg Oseltamivir Phosphate (Tamiflu) 75 mg PO BID [facility] Oxycodone/Acetaminophen (Percocet 325-5 Mg) 1 tab PO Q4H PRN PRN Reason: Pain (moderate 4-6) Prednisone (Prednisone) 9 mg PO DAILY NELLY - Exam General: Reports: Alert, Oriented Neck: Reports: Supple Lungs: Reports: Clear to Auscultation, Normal Respiratory Effort Cardiovascular: Reports: Regular Rate, Regular Rhythm Extremities: No Pedal Edema, Other (Right hip pain) *Q Meaningful Use (DIS) - VTE *Q VTE Criteria *Q: - Stroke *Q Stroke Criteria *Q: - AMI *Q AMI Criteria *Q:
[2017-04-15] MEDS ORDERED: Oseltamivir 75 MG Cap PO SCH (11:00)
[2017-04-15] MEDS: Morphine 2 MG/ML Syringe IVPUSH PRN (11:22)
[2017-04-15 11:46] VITALS: BP 101/64
== END 2017-04-15 13:40 | DRG 690 ==
LOC: DL.ED 13:04 → DL.MS 18:00 → UNDOADMIN 18:00 → DL.MS 18:51
PROVIDERS: ADMIT Internal Medicine; ATTEND Internal Medicine
DX: N10 Acute pyelonephritis (principal); E11.65 Type 2 diabetes mellitus with hyperglycemia; E87.1 Hypo-osmolality and hyponatremia; N15.1 Renal and perinephric abscess; J10.1 Influenza due to other identified influenza virus with other respiratory manifestations; K56.7 Ileus, unspecified; G89.29 Other chronic pain; M25.551 Pain in right hip; I10 Essential (primary) hypertension; E78.5 Hyperlipidemia, unspecified; E11.9 Type 2 diabetes mellitus without complications; E66.9 Obesity, unspecified; M06.9 Rheumatoid arthritis, unspecified; M79.7 Fibromyalgia; Z87.891 Personal history of nicotine dependence; Z88.8 Allergy status to other drugs, medicaments and biological substances; Z79.4 Long term (current) use of insulin; Z79.899 Other long term (current) drug therapy
CPT/HCPCS: 36415; 73502; 74177; 80053; 81001; 82570; 82962; 83605; 83930; 83935; 84300; 84443; 85025; 85651; 86140; 87040 ×2; 96361; 96365; 96372; 96375; 99285; J1170; J1815; J2405; J2543; J7030; J7050; Q9967; 80048; 80202; 82565; 83735; 84100; 85027; 87086; 87804; 97166-GO; A9270-GY; J1650; J2270; J3370; J7620-GY

== ENCOUNTER 2017-05-03 02:21 | Emergency (ER) | payer MEDICARE, MEDICAID ==
[2017-05-03 02:38] VITALS: BP 126/63
[2017-05-03 03:25] LABS: CHLORIDE,CL 107 mmol/L (101-111); SODIUM,NA 138 mmol/L (135-145)
[2017-05-03] MEDS: HYDROmorphone 1 MG/ML Syringe IVPUSH ONE ×3 (03:37→06:41)
[2017-05-03] MEDS: Iopamidol 612 MG/ML 100 ML Bottle IVPUSH ONE (05:02)
[2017-05-03] MEDS: Sodium Chloride 0.9% 1,000 ML IV ONE (06:14)
--- NOTE | 2017-05-03 06:28 | EDM.PDOC ---
ED HPI GENERAL MEDICAL PROBLEM - General Chief Complaint: Chest Pain Stated Complaint: CHEST PAIN [id number] Time Seen by Provider: 05/03/17 02:30 Source of Information: Reports: Patient History Limitations: Reports: No Limitations - History of Present Illness INITIAL COMMENTS - FREE TEXT/NARRATIVE: ED with c/o of severe lower abdomen and left flank pain. Patient hx of left renal cyst and kidney infection. PICC removed yesterday. States she was told to come back to ED if pain increased. Pain has been constatnt since hospital discharge last week. Has not been sleeping due to pain. Patient admitted that has not touched alcohol since 1997 but tonight she did have 1/2 beer in attempt to relax and relieve pain. Notes it has not helped. No fevers. Left Chest Pain Score (Numeric/FACES): 8 - Related Data Allergies Allergy/AdvReac Type Severity Reaction Status Date / Time daptomycin Allergy Rash Verified 05/03/17 02:40 rituximab [From Rituxan] Allergy Difficulty Verified 05/03/17 02:40 Breathing Home Meds: Home Meds Ascorbic Acid [Vitamin C] 250 mg PO TID 03/08/14 [History] predniSONE 9 mg PO DAILY 03/08/14 [History] Ferrous Sulfate [Iron] 325 mg PO TID 09/13/14 [History] Pantoprazole [Pantoprazole Sodium] 40 mg PO DAILY 09/13/14 [History] Albuterol [Proventil Neb Soln] 2.5 mg NEB QIDRT PRN 04/27/15 [History] DULoxetine [Cymbalta] 60 mg PO DAILY 08/07/15 [History] Insulin Glarg,Human.Rec.Analog [LantUS Solostar] 35 units SQ BID 08/07/15 [ History] rOPINIRole [Requip] 1 mg PO BEDTIME 08/13/15 [History] Multivitamin [Multivitamins] 1 each PO DAILY 09/20/15 [History] oxyCODONE HCl/Acetaminophen [Endocet 10-325 mg Tablet] 1 each PO Q4H PRN [History] Lisinopril [Prinivil] 2.5 mg PO DAILY 04/14/16 [History] Oxybutynin [Oxybutynin ER] 5 mg PO BEDTIME 04/14/16 [History] Pregabalin [Lyrica] 150 mg PO BEDTIME 04/14/16 [History] cycloSPORINE [Restasis] 1 drop EYEBOTH DAILY 04/14/16 [History] Insulin Aspart [NovoLOG] 30 units INJECT BID 05/16/16 [History] Cholecalciferol (Vitamin D3) [Vitamin D3] 400 units PO DAILY 04/13/17 [History] Etanercept [Enbrel] 25 mg SQ ASDIRECTED 04/13/17 [History] Enoxaparin [Lovenox] 40 mg SUBCUT DAILY syringe 04/15/17 [Rx] Insulin Aspart [NovoLOG] 0 unit SUBCUT ACBED pen 04/15/17 [Rx] Morphine 2 mg IVPUSH Q2H PRN syringe 04/15/17 [Rx] Ondansetron [Zofran ODT] 4 mg PO Q4H PRN tab.dis 04/15/17 [Rx] Oseltamivir Phosphate [IJD: Tamiflu] 75 mg PO BID capsule 04/15/17 [Rx] Vancomycin 1 gm IV Q8H sdv 04/15/17 [Rx] Vancomycin Pharmacy to Dose [Pharmacy to Dose - Vancomycin] 1 dose .XX ASDIRECTED each 04/15/17 [Rx] Magnesium Hydroxide [Milk of Magnesia] 30 ml PO DAILY 05/03/17 [History] metFORMIN [Glucophage] 500 mg PO BIDMEALS 05/03/17 [History] Past Medical History - Past Health History Medical/Surgical History: Denies Medical/Surgical History HEENT History: Reports: Cataract, Impaired Vision, Other (See Below) Other HEENT History: wears glasses Cardiovascular History: Reports: Hypertension, SOB on Exertion Respiratory History: Reports: Bronchitis, Recurrent, Sleep Apnea, SOB Gastrointestinal History: Reports: Gastritis, Other (See Below) Other Gastrointestinal History: chronic stomach pains. ABCESS OF ABDOMEN Genitourinary History: Reports: None [employer] History: Reports: , Other (See Below) Other OB/BYN History: 2 Musculoskeletal History: Reports: Amputation, Back Pain, Chronic, Fibromyalgia, RA, Other (See Below) Other Musculoskeletal History: Scoliosis of the spine w/ chronic back pain. OSTEOMELITIS OF RIGHT FOOT Neurological History: Reports: Other (See Below) Other Neuro History: SOMNOLENCE, DAYTIME, nerve damage to back and legs Psychiatric History: Reports: Anxiety, Eating Disorders Endocrine/Metabolic History: Reports: Diabetes, Type II, IDDM, Obesity/BMI 30+ Hematologic History: Reports: Iron Deficiency, Other (See Below) Other Hematologic History: HX OF SEPSIS. HX OF MRSA INFECTION Immunologic History: Reports: Immunosuppression, Other (See Below) Other Immunologic History: RA Oncologic (Cancer) History: Reports: None Dermatologic History: Reports: Cellulitis, Other (See Below) Other Dermatologic History: hx of mrsa. HX OF SKIN ULCERS OF FOOT, BILAT. DIABETIC SKIN ULCERS. CELLULITIS OF L ANTERIOR LOWER LEG. BIOPSY OF SKIN LESION - Infectious Disease History Infectious Disease History: Reports: Chicken Pox, MRSA - Past Surgical History HEENT Surgical History: Reports: None Cardiovascular Surgical History: Reports: None Musculoskeletal Surgical History: Reports: Amputation, Other (See Below) Other Musculoskeletal Surgeries/Procedures:: right toe ampulation Oncologic Surgical History: Reports: None Social & Family History - Family History Family Medical History: Noncontributory HEENT: Reports: None Cardiac: Reports: None Respiratory: Reports: None GI: Reports: None : Reports: None OBGYN: Reports: None Musculoskeletal: Reports: RA Neurological: Reports: None Psychiatric: Reports: Depression Endocrine/Metabolic: Reports: Diabetes, type II Hematologic: Reports: None Immunologic: Reports: None Dermatologic: Reports: None Oncologic: Reports: None - Tobacco Use Smoking Status *Q: Former Smoker Years of Tobacco use: 6 Packs/Tins Daily: 0.5 Used Tobacco, but Quit: No Month Tobacco Last Used: February Second Hand Smoke Exposure: No - Caffeine Use Caffeine Use: Reports: Soda, Tea Caffeine Use Comment: 3/day - Alcohol Use Days Per Week of Alcohol Use: 0 - Recreational Drug Use Recreational Drug Use: No Drug Use in Last 12 Months: No - Living Situation & Occupation Living situation: Reports: with Family ED ROS GENERAL - Review of Systems Review Of Systems: See Below Constitutional: Reports: No Symptoms HEENT: Reports: No Symptoms Respiratory: Reports: No Symptoms Cardiovascular: Reports: No Symptoms GI/Abdominal: Reports: Abdominal Pain : Reports: Flank Pain (left) Musculoskeletal: Reports: Other (general pain with RA) Skin: Reports: No Symptoms Neurological: Reports: No Symptoms Psychiatric: Reports: No Symptoms ED EXAM, GENERAL - Physical Exam Exam: See Below Exam Limited By: No Limitations General Appearance: Alert, Moderate Distress Eye Exam: Bilateral Eye: EOMI Ears: Normal External Exam Nose: Normal Inspection Throat/Mouth: Normal Inspection, Normal Lips Head: Atraumatic, Normocephalic Neck: Normal Inspection Respiratory/Chest: No Respiratory Distress, Lungs Clear Cardiovascular: Normal Peripheral Pulses, Regular Rate, Rhythm GI/Abdominal: Normal Bowel Sounds, Soft, Tender (generalized, greater left lateral abodome) Back Exam: CVA Tenderness (L) Extremities: Other (rheumatoid joint changes of hands and feet. ) Neurological: Alert, Oriented, Normal Cognition Psychiatric: Flat Affect Skin Exam: Warm, Dry, Intact Course - Vital Signs Last Recorded V/S: Last Vital Signs Temp 96.4 F 05/03/17 02:27 Pulse 89 05/03/17 02:27 Resp 16 05/03/17 02:27 BP 126/63 05/03/17 02:27 Pulse Ox 99 05/03/17 02:27 - Orders/Labs/Meds Orders: Active Orders 24 hr Category Date Time Status CULTURE URINE [RM] Stat Lab 05/03/17 04:09 Received Labs: Laboratory Tests 05/03/17 05/03/17 05/03/17 Range/Units 02:45 02:45 02:45 WBC 5.7 (5.0-10.0) 10^3/uL RBC 4.38 (4.2-5.4) 10^6/uL Hgb 11.5 L D (12.0-16.0) g/dL Hct 37.5 (37.0-47.0) % MCV 85.6 (80-100) fL MCH 26.3 L (27.0-34.0) pg MCHC 30.7 L (33.0-35.0) g/dL Plt Count 328 (150-450) 10^3/uL Neut % (Auto) 69.1 (42.2-75.2) % Lymph % (Auto) 23.5 (20.5-50.1) % Loving % (Auto) 3.5 (2-8) % Eos % (Auto) 3.9 H (1.0-3.0) % Baso % (Auto) 0.0 (0.0-1.0) % Sodium 138 (135-145) mmol/L Potassium 3.9 (3.6-5.0) mmol/L Chloride 107 (101-111) mmol/L Carbon Dioxide 22.0 (21.0-31.0) mmol/L Anion Gap 12.9 BUN 10 (7-18) mg/dL Creatinine 0.8 (0.6-1.3) mg/dL Est Cr Clr Drug Dosing 94.07 mL/min Estimated GFR (MDRD) > 60 BUN/Creatinine Ratio 12.50 Glucose 220 H (74-105) mg/dL POC Glucose (70-105) mg/dl Lactic Acid (0.5-2.2) mmol/L Calcium 8.6 (8.4-10.2) mg/dl Total Bilirubin 0.2 (0.2-1.0) mg/dL AST 29 (10-42) IU/L ALT 22 (10-60) IU/L Alkaline Phosphatase 60 (42-121) IU/L Troponin I < 0.02 (0.00-0.02) ng/ml Total Protein 7.0 (6.7-8.2) g/dl Albumin 3.5 (3.2-5.5) g/dl Globulin 3.5 Albumin/Globulin Ratio 1.00 Amylase 46 (28-100) U/L Lipase 39 (22-51) U/L Urine Color (YELLOW) Urine Appearance (CLEAR) Urine pH (5.0-9.0) Ur Specific [place] (1.005-1.030) Urine Protein (NEGATIVE) Urine Glucose (UA) (NEGATIVE) Urine Ketones (NEGATIVE) Urine Occult Blood (NEGATIVE) Urine Nitrite (NEGATIVE) Urine Bilirubin (NEGATIVE) Urine Urobilinogen (0.2-1.0) mg/dL Ur Leukocyte Esterase (NEGATIVE) Urine RBC /HPF Urine WBC (0-5/HPF) /HPF Ur Epithelial Cells /HPF Urine Bacteria (0-FEW/HPF) /HPF Urine Opiates Screen (NEGATIVE) Ur Oxycodone Screen (NEGATIVE) Urine Methadone Screen (NEGATIVE) Ur Barbiturates Screen (NEGATIVE) U Tricyclic Antidepress (NEGATIVE) Ur Phencyclidine Scrn (NEGATIVE) Ur Amphetamine Screen (NEGATIVE) U Methamphetamines Scrn (NEGATIVE) Urine MDMA Screen (NEGATIVE) U Benzodiazepines Scrn (NEGATIVE) Urine Cocaine Screen (NEGATIVE) U Marijuana (THC) Screen (NEGATIVE) 05/03/17 05/03/17 05/03/17 Range/Units 02:55 03:07 04:06 WBC (5.0-10.0) 10^3/uL RBC (4.2-5.4) 10^6/uL Hgb (12.0-16.0) g/dL Hct (37.0-47.0) % MCV (80-100) fL MCH (27.0-34.0) pg MCHC (33.0-35.0) g/dL Plt Count (150-450) 10^3/uL Neut % (Auto) (42.2-75.2) % Lymph % (Auto) (20.5-50.1) % Loving % (Auto) (2-8) % Eos % (Auto) (1.0-3.0) % Baso % (Auto) (0.0-1.0) % Sodium (135-145) mmol/L Potassium (3.6-5.0) mmol/L Chloride (101-111) mmol/L Carbon Dioxide (21.0-31.0) mmol/L Anion Gap BUN (7-18) mg/dL Creatinine (0.6-1.3) mg/dL Est Cr Clr Drug Dosing mL/min Estimated GFR (MDRD) BUN/Creatinine Ratio Glucose (74-105) mg/dL POC Glucose 196 H (70-105) mg/dl Lactic Acid 1.7 (0.5-2.2) mmol/L Calcium (8.4-10.2) mg/dl Total Bilirubin (0.2-1.0) mg/dL AST (10-42) IU/L ALT (10-60) IU/L Alkaline Phosphatase (42-121) IU/L Troponin I (0.00-0.02) ng/ml Total Protein (6.7-8.2) g/dl Albumin (3.2-5.5) g/dl Globulin Albumin/Globulin Ratio Amylase (28-100) U/L Lipase (22-51) U/L Urine Color (YELLOW) Urine Appearance (CLEAR) Urine pH (5.0-9.0) Ur Specific [place] (1.005-1.030) Urine Protein (NEGATIVE) Urine Glucose (UA) (NEGATIVE) Urine Ketones (NEGATIVE) Urine Occult Blood (NEGATIVE) Urine Nitrite (NEGATIVE) Urine Bilirubin (NEGATIVE) Urine Urobilinogen (0.2-1.0) mg/dL Ur Leukocyte Esterase (NEGATIVE) Urine RBC /HPF Urine WBC (0-5/HPF) /HPF Ur Epithelial Cells /HPF Urine Bacteria (0-FEW/HPF) /HPF Urine Opiates Screen Positive H (NEGATIVE) Ur Oxycodone Screen Positive H (NEGATIVE) Urine Methadone Screen Negative (NEGATIVE) Ur Barbiturates Screen Negative (NEGATIVE) U Tricyclic Antidepress Negative (NEGATIVE) Ur Phencyclidine Scrn Negative (NEGATIVE) Ur Amphetamine Screen Negative (NEGATIVE) U Methamphetamines Scrn Negative (NEGATIVE) Urine MDMA Screen Negative (NEGATIVE) U Benzodiazepines Scrn Negative (NEGATIVE) Urine Cocaine Screen Negative (NEGATIVE) U Marijuana (THC) Screen Positive H (NEGATIVE) 05/03/17 Range/Units 04:09 WBC (5.0-10.0) 10^3/uL RBC (4.2-5.4) 10^6/uL Hgb (12.0-16.0) g/dL Hct (37.0-47.0) % MCV (80-100) fL MCH (27.0-34.0) pg MCHC (33.0-35.0) g/dL Plt Count (150-450) 10^3/uL Neut % (Auto) (42.2-75.2) % Lymph % (Auto) (20.5-50.1) % Loving % (Auto) (2-8) % Eos % (Auto) (1.0-3.0) % Baso % (Auto) (0.0-1.0) % Sodium (135-145) mmol/L Potassium (3.6-5.0) mmol/L Chloride (101-111) mmol/L Carbon Dioxide (21.0-31.0) mmol/L Anion Gap BUN (7-18) mg/dL Creatinine (0.6-1.3) mg/dL Est Cr Clr Drug Dosing mL/min Estimated GFR (MDRD) BUN/Creatinine Ratio Glucose (74-105) mg/dL POC Glucose (70-105) mg/dl Lactic Acid (0.5-2.2) mmol/L Calcium (8.4-10.2) mg/dl Total Bilirubin (0.2-1.0) mg/dL AST (10-42) IU/L ALT (10-60) IU/L Alkaline Phosphatase (42-121) IU/L Troponin I (0.00-0.02) ng/ml Total Protein (6.7-8.2) g/dl Albumin (3.2-5.5) g/dl Globulin Albumin/Globulin Ratio Amylase (28-100) U/L Lipase (22-51) U/L Urine Color Yellow (YELLOW) Urine Appearance Cloudy (CLEAR) Urine pH 6.0 (5.0-9.0) Ur Specific [place] >= 1.030 (1.005-1.030) Urine Protein 100 H (NEGATIVE) Urine Glucose (UA) Negative (NEGATIVE) Urine Ketones Trace H (NEGATIVE) Urine Occult Blood Trace-intact H (NEGATIVE) Urine Nitrite Positive H (NEGATIVE) Urine Bilirubin Negative (NEGATIVE) Urine Urobilinogen 0.2 (0.2-1.0) mg/dL Ur Leukocyte Esterase Negative (NEGATIVE) Urine RBC 0-5 /HPF Urine WBC 0-5 (0-5/HPF) /HPF Ur Epithelial Cells Few /HPF Urine Bacteria Many H (0-FEW/HPF) /HPF Urine Opiates Screen (NEGATIVE) Ur Oxycodone Screen (NEGATIVE) Urine Methadone Screen (NEGATIVE) Ur Barbiturates Screen (NEGATIVE) U Tricyclic Antidepress (NEGATIVE) Ur Phencyclidine Scrn (NEGATIVE) Ur Amphetamine Screen (NEGATIVE) U Methamphetamines Scrn (NEGATIVE) Urine MDMA Screen (NEGATIVE) U Benzodiazepines Scrn (NEGATIVE) Urine Cocaine Screen (NEGATIVE) U Marijuana (THC) Screen (NEGATIVE) Meds: Medications Discontinued Medications Generic Name Dose Route Start Last Admin Trade Name Freq PRN Reason Stop Dose Admin Hydromorphone HCl 1 mg 05/03/17 03:31 05/03/17 03:37 Dilaudid IVPUSH 05/03/17 03:32 1 mg ONETIME ONE Administration Hydromorphone HCl 1 mg 05/03/17 04:34 05/03/17 04:39 Dilaudid IVPUSH 05/03/17 04:35 1 mg ONETIME ONE Administration Hydromorphone HCl 1 mg 05/03/17 06:36 05/03/17 06:41 Dilaudid IVPUSH 05/03/17 06:37 1 mg ONETIME ONE Administration Sodium Chloride 1,000 mls @ 500 mls/hr 05/03/17 06:06 05/03/17 06:14 Normal Saline IV 05/03/17 08:05 500 mls/hr .BOLUS ONE Administration Iopamidol 100 ml 05/03/17 03:54 05/03/17 05:02 Isovue-300 (61%) IVPUSH 05/03/17 03:55 100 ml ONETIME ONE Administration - Radiology Interpretation Free Text/Narrative:: 2.7 cm left renal upper pose abscess slightly decreased in size compare to prior study 2.7cm left adenexal cystic lesion, decreased in size compared to prior study sigmoid diverticulosis without CT findings of acute diverticulitis - Re-Assessments/Exams Free Text/Narrative Re-Assessment/Exam: 05/03/17 06:30 Dr. Saha accepting of patient in transfer for further eval and management of renal abscess. Departure - Departure Time of Disposition: 06:50 Disposition: DC/Tfer to Acute Hospital 02 Condition: Good Clinical Impression: Left flank pain, Abscess of left kidney Chronic pain Qualifiers: Chronic pain type: chronic pain syndrome Qualified Code(s): G89.4 - Chronic pain syndrome - Discharge Information Referrals: PCP,None [Primary Care Provider] - Forms: ED Department Discharge - My Orders Last 24 Hours: My Active Orders 05/03/17 04:09 CULTURE URINE [RM] Stat - Assessment/Plan Last 24 Hours: My Active Orders 05/03/17 04:09 CULTURE URINE [RM] Stat
--- NOTE | 2017-05-04 08:20 | EKG ---
05/03/2017 - OUSMANE GARCIA - This 12-lead EKG shows a normal sinus rhythm with a ventricular rate of 86. Normal axis and intervals. No acute ST-segment or T-wave changes. [facility] /[id number]
== END 2017-05-03 06:52 ==
LOC: DL.ED 02:21
DX: N15.1 Renal and perinephric abscess (principal); R10.9 Unspecified abdominal pain; G89.4 Chronic pain syndrome; I10 Essential (primary) hypertension; E11.9 Type 2 diabetes mellitus without complications; E66.9 Obesity, unspecified; Z87.891 Personal history of nicotine dependence; Z88.8 Allergy status to other drugs, medicaments and biological substances; Z79.899 Other long term (current) drug therapy
CPT/HCPCS: 36415; 74177; 80053; 80305; 81001; 82150; 82962; 83605; 83690; 84484; 85025; 87040; 87086; 93005; 93010; 96361; 96374; 96376; 99285; J1170; J7030; Q9967; 87088; 87186

== ENCOUNTER 2017-06-04 12:55 | Emergency (ER) | payer MEDICARE, MEDICAID ==
[2017-06-04 13:31] VITALS: BP 132/80
[2017-06-04 14:54] LABS: CHLORIDE,CL 106 mmol/L (101-111); SODIUM,NA 138 mmol/L (135-145)
[2017-06-04] MEDS ORDERED: Iopamidol 612 MG/ML 100 ML Bottle IVPUSH ONE (15:25)
--- NOTE | 2017-06-04 18:59 | EDM.PDOC ---
Scribed by Sravanthi Grace 06/04/17 [id number] for Shawna Claudio NP ED HPI GENERAL MEDICAL PROBLEM - General Chief Complaint: Genitourinary Problem Stated Complaint: right kidney pain Time Seen by Provider: 06/04/17 14:03 Source of Information: Reports: Patient, RN, RN Notes Reviewed History Limitations: Reports: No Limitations - History of Present Illness INITIAL COMMENTS - FREE TEXT/NARRATIVE: Patient presents to ER with complaint of right flank pain since Monday. Patient states a cyst was found on left kidney in April. She receives antibiotic treatment daily for the left kidney. States pain began in right flank on Monday. Rate pain /. Does have a Fentanyl patch for pain. Onset: Gradual Onset Date: 06/02/17 Duration: Getting Worse Location: Reports: Other (right flank) Quality: Reports: Ache Severity: Moderate Improves with: Reports: None Worsens with: Reports: None Associated Symptoms: Reports: No Other Symptoms Right Flank Pain Score (Numeric/FACES): 7 - Related Data Allergies Allergy/AdvReac Type Severity Reaction Status Date / Time daptomycin Allergy Rash Verified 05/30/17 13:24 rituximab [From Rituxan] Allergy Difficulty Verified 05/30/17 13:24 Breathing Home Meds: Home Meds Ascorbic Acid [Vitamin C] 250 mg PO TID 03/08/14 [History] predniSONE 9 mg PO DAILY 03/08/14 [History] Ferrous Sulfate [Iron] 325 mg PO TID 09/13/14 [History] Pantoprazole [Pantoprazole Sodium] 40 mg PO DAILY 09/13/14 [History] Albuterol [Proventil Neb Soln] 2.5 mg NEB QIDRT PRN 04/27/15 [History] DULoxetine [Cymbalta] 60 mg PO DAILY 08/07/15 [History] Insulin Glarg,Human.Rec.Analog [LantUS Solostar] 35 units SQ BID 08/07/15 [ History] rOPINIRole [Requip] 1 mg PO BEDTIME 08/13/15 [History] Multivitamin [Multivitamins] 1 each PO DAILY 09/20/15 [History] oxyCODONE HCl/Acetaminophen [Endocet 10-325 mg Tablet] 1 each PO Q4H PRN [History] Lisinopril [Prinivil] 2.5 mg PO DAILY 04/14/16 [History] Oxybutynin [Oxybutynin ER] 5 mg PO BEDTIME 04/14/16 [History] Pregabalin [Lyrica] 150 mg PO BEDTIME 04/14/16 [History] cycloSPORINE [Restasis] 1 drop EYEBOTH DAILY 04/14/16 [History] Cholecalciferol (Vitamin D3) [Vitamin D3] 400 units PO DAILY 04/13/17 [History] Etanercept [Enbrel] 25 mg SQ ASDIRECTED 04/13/17 [History] metFORMIN [Glucophage] 500 mg PO BIDMEALS 05/03/17 [History] Past Medical History - Past Health History Medical/Surgical History: Denies Medical/Surgical History HEENT History: Reports: Cataract, Impaired Vision, Other (See Below) Other HEENT History: wears glasses Cardiovascular History: Reports: Hypertension, SOB on Exertion Respiratory History: Reports: Bronchitis, Recurrent, Sleep Apnea, SOB Gastrointestinal History: Reports: Gastritis, Other (See Below) Other Gastrointestinal History: chronic stomach pains. ABCESS OF ABDOMEN Genitourinary History: Reports: None BUTCHER History: Reports: , Other (See Below) Other OB/BYN History: 2 Musculoskeletal History: Reports: Amputation, Back Pain, Chronic, Fibromyalgia, RA, Other (See Below) Other Musculoskeletal History: Scoliosis of the spine w/ chronic back pain. OSTEOMELITIS OF RIGHT FOOT, healed 05/10/17 Neurological History: Reports: Other (See Below) Other Neuro History: SOMNOLENCE, DAYTIME, nerve damage to back and legs Psychiatric History: Reports: Anxiety, Eating Disorders Endocrine/Metabolic History: Reports: Diabetes, Type II, IDDM, Obesity/BMI 30+ Hematologic History: Reports: Iron Deficiency, Other (See Below) Other Hematologic History: HX OF SEPSIS. HX OF MRSA INFECTION Immunologic History: Reports: Immunosuppression, Other (See Below) Other Immunologic History: RA Oncologic (Cancer) History: Reports: None Dermatologic History: Reports: Cellulitis, Other (See Below) Other Dermatologic History: hx of mrsa. HX OF SKIN ULCERS OF FOOT, BILAT. DIABETIC SKIN ULCERS. CELLULITIS OF L ANTERIOR LOWER LEG. BIOPSY OF SKIN LESION - Infectious Disease History Infectious Disease History: Reports: Influenza, MRSA, Other (See Below) Other Infectious Disease History: CELLULITIS - Past Surgical History HEENT Surgical History: Reports: Cataract Surgery Cardiovascular Surgical History: Reports: None Respiratory Surgical History: Reports: None GI Surgical History: Reports: None Female Surgical History: Reports: Other (See Below) Other Female Surgeries/Procedures: cyst on her left kidney Musculoskeletal Surgical History: Reports: Amputation, Other (See Below) Other Musculoskeletal Surgeries/Procedures:: right toe ampulation Oncologic Surgical History: Reports: None Dermatological Surgical History: Reports: Other (See Below) Social & Family History - Family History Family Medical History: Noncontributory HEENT: Reports: None Cardiac: Reports: None Respiratory: Reports: None GI: Reports: None : Reports: None OBGYN: Reports: None Musculoskeletal: Reports: RA Neurological: Reports: None Psychiatric: Reports: Depression Endocrine/Metabolic: Reports: Diabetes, type II Hematologic: Reports: None Immunologic: Reports: None Dermatologic: Reports: None Oncologic: Reports: None - Tobacco Use Smoking Status *Q: Never Smoker Years of Tobacco use: 6 Packs/Tins Daily: 0.5 Used Tobacco, but Quit: No Month/Year Tobacco Last Used: February Second Hand Smoke Exposure: No - Caffeine Use Caffeine Use: Reports: Coffee, Soda, Tea Other Caffeine Use: 16oz daily Caffeine Use Comment: 3/day - Alcohol Use Days Per Week of Alcohol Use: 0 - Recreational Drug Use Recreational Drug Use: No Drug Use in Last 12 Months: No - Living Situation & Occupation Living situation: Reports: with Family ED ROS GENERAL - Review of Systems Review Of Systems: ROS reveals no pertinent complaints other than HPI. ED EXAM, RENAL/ - Physical Exam Exam: See Below Exam Limited By: No Limitations General Appearance: Alert, WD/WN, No Apparent Distress Eye Exam: Bilateral Eye: Normal Inspection Ears: Normal External Exam, Normal Canal, Hearing Grossly Normal, Normal TMs Nose: Normal Inspection, Normal Mucosa, No Blood Throat/Mouth: Normal Inspection, Normal Lips, Normal Teeth, Normal Gums, Normal Oropharynx, Normal Voice, No Airway Compromise Head: Atraumatic, Normocephalic Neck: Normal Inspection, Supple, Non-Tender, Full Range of Motion Respiratory/Chest: Rales (bilateral) Cardiovascular: Normal Peripheral Pulses, Regular Rate, Rhythm, No Edema, No Gallop, No JVD, No Murmur, No Rub GI/Abdominal: Other (Right and left CVA tenderness.) (Female) Exam: Deferred Rectal (Female) Exam: Deferred Back Exam: Normal Inspection, Full Range of Motion, NT Extremities: Normal Inspection, Normal Range of Motion, Non-Tender, Normal Capillary Refill, No Pedal Edema Neurological: Alert, Oriented, CN II-XII Intact, Normal Cognition, Normal Gait, Normal Reflexes, No Motor/Sensory Deficits Psychiatric: Normal Affect, Normal Mood Skin Exam: Other (healing areas from nephrostomy) Lymphatic: No Adenopathy Course - Vital Signs Last Recorded V/S: Last Vital Signs Temp 98.1 F 06/04/17 13:29 Pulse 82 06/04/17 13:29 Resp 16 06/04/17 13:29 BP 132/80 06/04/17 13:29 Pulse Ox 100 06/04/17 13:29 - Orders/Labs/Meds Orders: Active Orders 24 hr Category Date Time Status Peripheral IV Care [RC] . DIRECTED Care 06/04/17 15:20 Active Peripheral IV Insertion Adult [OM.PC] Routine Oth 06/04/17 15:20 Ordered Labs: Laboratory Tests 06/04/17 06/04/17 06/04/17 Range/Units 14:25 14:25 14:25 WBC (5.0-10.0) 10^3/uL RBC (4.2-5.4) 10^6/uL Hgb (12.0-16.0) g/dL Hct (37.0-47.0) % MCV (80-100) fL MCH (27.0-34.0) pg MCHC (33.0-35.0) g/dL Plt Count (150-450) 10^3/uL Neut % (Auto) (42.2-75.2) % Lymph % (Auto) (20.5-50.1) % [place] % (Auto) (2-8) % Eos % (Auto) (1.0-3.0) % Baso % (Auto) (0.0-1.0) % Sodium (135-145) mmol/L Potassium (3.6-5.0) mmol/L Chloride (101-111) mmol/L Carbon Dioxide (21.0-31.0) mmol/L Anion Gap BUN (7-18) mg/dL Creatinine (0.6-1.3) mg/dL Est Cr Clr Drug Dosing mL/min Estimated GFR (MDRD) BUN/Creatinine Ratio Glucose (74-105) mg/dL Calcium (8.4-10.2) mg/dl Total Bilirubin (0.2-1.0) mg/dL AST (10-42) IU/L ALT (10-60) IU/L Alkaline Phosphatase (42-121) IU/L Total Protein (6.7-8.2) g/dl Albumin (3.2-5.5) g/dl Globulin Albumin/Globulin Ratio Urine Color Dark yellow (YELLOW) Urine Appearance Slightly cloudy (CLEAR) Urine pH 7.0 (5.0-9.0) Ur Specific [place] 1.025 (1.005-1.030) Urine Protein >=300 H (NEGATIVE) Urine Glucose (UA) Negative (NEGATIVE) Urine Ketones Negative (NEGATIVE) Urine Occult Blood Large H (NEGATIVE) Urine Nitrite Negative (NEGATIVE) Urine Bilirubin Small H (NEGATIVE) Urine Urobilinogen 0.2 (0.2-1.0) mg/dL Ur Leukocyte Esterase Negative (NEGATIVE) Urine RBC >100 H /HPF Urine WBC 0-5 (0-5/HPF) /HPF Ur Epithelial Cells Moderate H /HPF Urine Bacteria Rare (0-FEW/HPF) /HPF Urine Mucus Few H /LPF Urine HCG, Qual Negative Urine Opiates Screen Positive H (NEGATIVE) Ur Oxycodone Screen Positive H (NEGATIVE) Urine Methadone Screen Negative (NEGATIVE) Ur Barbiturates Screen Negative (NEGATIVE) U Tricyclic Antidepress Negative (NEGATIVE) Ur Phencyclidine Scrn Negative (NEGATIVE) Ur Amphetamine Screen Negative (NEGATIVE) U Methamphetamines Scrn Negative (NEGATIVE) Urine MDMA Screen Negative (NEGATIVE) U Benzodiazepines Scrn Negative (NEGATIVE) Urine Cocaine Screen Negative (NEGATIVE) U Marijuana (THC) Screen Positive H (NEGATIVE) 06/04/17 06/04/17 Range/Units 14:27 14:27 WBC 4.9 L (5.0-10.0) 10^3/uL RBC 4.65 (4.2-5.4) 10^6/uL Hgb 11.8 L (12.0-16.0) g/dL Hct 38.3 (37.0-47.0) % MCV 82.4 D (80-100) fL MCH 25.4 L (27.0-34.0) pg MCHC 30.8 L (33.0-35.0) g/dL Plt Count 333 (150-450) 10^3/uL Neut % (Auto) 73.7 (42.2-75.2) % Lymph % (Auto) 21.6 (20.5-50.1) % [place] % (Auto) 2.7 (2-8) % Eos % (Auto) 1.8 (1.0-3.0) % Baso % (Auto) 0.2 (0.0-1.0) % Sodium 138 (135-145) mmol/L Potassium 4.2 (3.6-5.0) mmol/L Chloride 106 (101-111) mmol/L Carbon Dioxide 23.0 (21.0-31.0) mmol/L Anion Gap 13.2 BUN 15 (7-18) mg/dL Creatinine 0.7 (0.6-1.3) mg/dL Est Cr Clr Drug Dosing 105.61 mL/min Estimated GFR (MDRD) > 60 BUN/Creatinine Ratio 21.42 Glucose 221 H (74-105) mg/dL Calcium 8.7 (8.4-10.2) mg/dl Total Bilirubin 0.3 (0.2-1.0) mg/dL AST 23 (10-42) IU/L ALT 14 (10-60) IU/L Alkaline Phosphatase 44 (42-121) IU/L Total Protein 7.6 (6.7-8.2) g/dl Albumin 3.3 (3.2-5.5) g/dl Globulin 4.3 Albumin/Globulin Ratio 0.77 Urine Color (YELLOW) Urine Appearance (CLEAR) Urine pH (5.0-9.0) Ur Specific [place] (1.005-1.030) Urine Protein (NEGATIVE) Urine Glucose (UA) (NEGATIVE) Urine Ketones (NEGATIVE) Urine Occult Blood (NEGATIVE) Urine Nitrite (NEGATIVE) Urine Bilirubin (NEGATIVE) Urine Urobilinogen (0.2-1.0) mg/dL Ur Leukocyte Esterase (NEGATIVE) Urine RBC /HPF Urine WBC (0-5/HPF) /HPF Ur Epithelial Cells /HPF Urine Bacteria (0-FEW/HPF) /HPF Urine Mucus /LPF Urine HCG, Qual Urine Opiates Screen (NEGATIVE) Ur Oxycodone Screen (NEGATIVE) Urine Methadone Screen (NEGATIVE) Ur Barbiturates Screen (NEGATIVE) U Tricyclic Antidepress (NEGATIVE) Ur Phencyclidine Scrn (NEGATIVE) Ur Amphetamine Screen (NEGATIVE) U Methamphetamines Scrn (NEGATIVE) Urine MDMA Screen (NEGATIVE) U Benzodiazepines Scrn (NEGATIVE) Urine Cocaine Screen (NEGATIVE) U Marijuana (THC) Screen (NEGATIVE) Meds: Medications Discontinued Medications Generic Name Dose Route Start Last Admin Trade Name Tomq PRN Reason Stop Dose Admin Iopamidol 100 ml 06/04/17 15:25 06/04/17 15:28 Isovue-300 (61%) IVPUSH 06/04/17 15:26 100 ml ONETIME ONE Administration - Radiology Interpretation Free Text/Narrative:: CT abdomen and pelvis: Interval decrease in size of the previously demonstrated an exophytic inflammatory process along the medial surface of the left upper renal pole. New small amount of fluid along the posterior left kidney , possibly subcapsular. Diverticulosis without evidence of diverticulitis. Mild hepatomegaly. See rad report. Departure - Departure Time of Disposition: 16:53 Disposition: Home, Self-Care 01 Condition: Fair Clinical Impression: Right flank pain - Discharge Information Instructions: Flank Pain, [id number] Forms: ED Department Discharge Additional Instructions: Rest Tylenol for pain Follow up with your primary care facility - My Orders Last 24 Hours: My Active Orders 06/04/17 15:20 Peripheral IV Care [RC] . DIRECTED Peripheral IV Insertion Adult [OM.PC] Routine - Assessment/Plan Last 24 Hours: My Active Orders 06/04/17 15:20 Peripheral IV Care [RC] . DIRECTED Peripheral IV Insertion Adult [OM.PC] Routine I have read and agree with the documentation that has been completed regarding this visit. By signing this record, I attest that the documentation was completed in my physical presence and is an accurate record of the encounter.
== END 2017-06-04 17:06 | disposition home or self-care (01) ==
LOC: DL.ED 12:55
DX: R10.9 Unspecified abdominal pain (principal); I10 Essential (primary) hypertension; E66.9 Obesity, unspecified; E11.622 Type 2 diabetes mellitus with other skin ulcer; E11.621 Type 2 diabetes mellitus with foot ulcer; Z88.1 Allergy status to other antibiotic agents; Z79.899 Other long term (current) drug therapy; Z79.4 Long term (current) use of insulin; Z86.14 Personal history of Methicillin resistant Staphylococcus aureus infection; Z68.35 Body mass index [BMI] 35.0-35.9, adult
CPT/HCPCS: 36415; 74177; 80053; 80305; 81001; 81025; 85025; 99284; Q9967

== ENCOUNTER 2017-07-03 01:43 | Emergency (ER) | payer MEDICARE, MEDICAID ==
--- NOTE | 2017-07-03 02:07 | EDM.PDOC ---
ED HPI GENERAL MEDICAL PROBLEM - General Chief Complaint: Respiratory Problem Stated Complaint: BODY PAIN [id number] Time Seen by Provider: 07/03/17 02:06 Source of Information: Reports: Patient History Limitations: Reports: No Limitations - History of Present Illness INITIAL COMMENTS - FREE TEXT/NARRATIVE: been sick since monday, not getting better feels worse tonight coughing fever can't sleep, no appetite. Generalized Pain Score (Numeric/FACES): 8 - Related Data Allergies Allergy/AdvReac Type Severity Reaction Status Date / Time daptomycin Allergy Rash Verified 06/16/17 12:54 rituximab [From Rituxan] Allergy Difficulty Verified 06/16/17 12:54 Breathing Home Meds: Home Meds Ascorbic Acid [Vitamin C] 250 mg PO TID 03/08/14 [History] predniSONE 6 mg PO DAILY 03/08/14 [History] Ferrous Sulfate [Iron] 325 mg PO TID 09/13/14 [History] Pantoprazole [Pantoprazole Sodium] 40 mg PO DAILY 09/13/14 [History] DULoxetine [Cymbalta] 60 mg PO DAILY 08/07/15 [History] Insulin Glarg,Human.Rec.Analog [LantUS Solostar] 35 units SQ BID 08/07/15 [ History] rOPINIRole [Requip] 1 mg PO BEDTIME 08/13/15 [History] Multivitamin [Multivitamins] 1 each PO DAILY 09/20/15 [History] oxyCODONE HCl/Acetaminophen [Endocet 10-325 mg Tablet] 1 each PO Q4H PRN [History] Lisinopril [Prinivil] 2.5 mg PO DAILY 04/14/16 [History] Oxybutynin [Oxybutynin ER] 5 mg PO BEDTIME 04/14/16 [History] Pregabalin [Lyrica] 150 mg PO BEDTIME 04/14/16 [History] cycloSPORINE [Restasis] 1 drop EYEBOTH DAILY 04/14/16 [History] Cholecalciferol (Vitamin D3) [Vitamin D3] 400 units PO DAILY 04/13/17 [History] metFORMIN [Glucophage] 500 mg PO BIDMEALS 05/03/17 [History] traZODone HCl [Trazodone HCl] 50 mg PO BEDTIME PRN 06/06/17 [History] Diclofenac Epolamine [Flector] 1 patch TOP .Q3DAY 06/16/17 [History] Past Medical History - Past Health History Medical/Surgical History: Denies Medical/Surgical History HEENT History: Reports: Cataract, Impaired Vision, Other (See Below) Other HEENT History: wears glasses Cardiovascular History: Reports: Hypertension, SOB on Exertion Respiratory History: Reports: Bronchitis, Recurrent, Sleep Apnea, SOB Gastrointestinal History: Reports: Gastritis, Other (See Below) Other Gastrointestinal History: chronic stomach pains. 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 OSTEOMELITIS OF RIGHT FOOT, healed 05/10/17 Neurological History: Reports: Other (See Below) Other Neuro History: SOMNOLENCE, DAYTIME, nerve damage to back and legs Psychiatric History: Reports: Anxiety, Eating Disorders Endocrine/Metabolic History: Reports: Diabetes, Type II, IDDM, Obesity/BMI 30+ Hematologic History: Reports: Iron Deficiency, Other (See Below) Other Hematologic History: HX OF SEPSIS. HX OF MRSA INFECTION Immunologic History: Reports: Immunosuppression, Other (See Below) Other Immunologic History: RA Oncologic (Cancer) History: Reports: None Dermatologic History: Reports: Cellulitis, Other (See Below) Other Dermatologic History: hx of mrsa. HX OF SKIN ULCERS OF FOOT, BILAT. DIABETIC SKIN ULCERS. CELLULITIS OF L ANTERIOR LOWER LEG. BIOPSY OF SKIN LESION - Infectious Disease History Infectious Disease History: Reports: MRSA Other Infectious Disease History: CELLULITIS - Past Surgical History Head Surgeries/Procedures: Reports: None HEENT Surgical History: Reports: Cataract Surgery Cardiovascular Surgical History: Reports: None Respiratory Surgical History: Reports: None GI Surgical History: Reports: None Female Surgical History: Reports: Other (See Below) Other Female Surgeries/Procedures: cyst on her left kidney Endocrine Surgical History: Reports: None Neurological Surgical History: Reports: None Musculoskeletal Surgical History: Reports: Amputation, Other (See Below) Other Musculoskeletal Surgeries/Procedures:: right toe ampulation Oncologic Surgical History: Reports: None Dermatological Surgical History: Reports: Other (See Below) Social & Family History - Family History Family Medical History: Noncontributory HEENT: Reports: None Cardiac: Reports: None Respiratory: Reports: None GI: Reports: None : Reports: None OBGYN: Reports: None Musculoskeletal: Reports: RA Neurological: Reports: None Psychiatric: Reports: Depression Endocrine/Metabolic: Reports: Diabetes, type II Hematologic: Reports: None Immunologic: Reports: None Dermatologic: Reports: None Oncologic: Reports: None - Tobacco Use Smoking Status *Q: Former Smoker Years of Tobacco use: 6 Packs/Tins Daily: 0.5 Used Tobacco, but Quit: No Month/Year Tobacco Last Used: February Second Hand Smoke Exposure: No - Caffeine Use Caffeine Use: Reports: Coffee, Soda, Tea Other Caffeine Use: 16oz daily Caffeine Use Comment: 3/day - Alcohol Use Days Per Week of Alcohol Use: 0 - Recreational Drug Use Recreational Drug Use: No Drug Use in Last 12 Months: No - Living Situation & Occupation Living situation: Reports: with Family ED ROS GENERAL - Review of Systems Review Of Systems: ROS reveals no pertinent complaints other than HPI. ED EXAM, GENERAL - Physical Exam Exam: See Below Exam Limited By: No Limitations General Appearance: Alert, WD/WN, Mild Distress, Other (episodic cough spasm) Ears: Hearing Grossly Normal Throat/Mouth: Normal Voice, No Airway Compromise Head: Atraumatic Neck: Non-Tender, Full Range of Motion Respiratory/Chest: No Accessory Muscle Use, Rales, Rhonchi. No: Decreased Breath Sounds Cardiovascular: Regular Rate, Rhythm GI/Abdominal: Soft, Non-Tender Neurological: Alert, Oriented, Normal Cognition, Normal Gait, No Motor/Sensory Deficits Psychiatric: Flat Affect Skin Exam: Warm, Dry, Normal Color Lymphatic: No Adenopathy Course - Vital Signs Last Recorded V/S: Last Vital Signs Temp 38.2 C H 07/03/17 03:18 Pulse 120 H 07/03/17 03:28 Resp 21 H 07/03/17 03:28 BP 72/36 L 07/03/17 03:28 Pulse Ox 100 07/03/17 03:28 - Orders/Labs/Meds Orders: Active Orders 24 hr Category Date Time Status RT Aerosol Therapy [RC] ASDIRECTED Care 07/03/17 02:08 Active CULTURE BLOOD [BC] Stat Lab 07/03/17 02:15 Received Norepinephrine 4 MG in D5W @ 2 MCG/MIN(250ml) Med 07/03/17 03:30 Ordered Norepinephrine [Levophed] 4 mg Dextrose 5% in Water 246 ml IV TITRATE Sodium Chloride 0.9% [Normal Saline] 1,000 ml Med 07/03/17 02:53 Active IV .BOLUS Sodium Chloride 0.9% [Normal Saline] 1,000 ml Med 07/03/17 03:16 Active IV .BOLUS Medication Orders Sodium Chloride (Normal Saline) 1,000 mls @ 999 mls/hr IV .BOLUS ONE Stop: 07/03/17 03:53 Last Admin: 07/03/17 03:00 Dose: 999 mls/hr Sodium Chloride (Normal Saline) 1,000 mls @ 999 mls/hr IV .BOLUS ONE Stop: 07/03/17 04:16 Last Admin: 07/03/17 03:06 Dose: 999 mls/hr Norepinephrine Bitartrate 4 mg (/ Dextrose/Water) 250 mls @ 7.5 mls/hr IV TITRATE NELLY; Protocol Labs: Laboratory Tests 07/03/17 07/03/17 07/03/17 Range/Units 02:15 02:15 02:15 WBC 8.2 (5.0-10.0) 10^3/uL RBC 4.51 (4.2-5.4) 10^6/uL Hgb 11.3 L (12.0-16.0) g/dL Hct 35.6 L (37.0-47.0) % MCV 78.9 L D (80-100) fL MCH 25.1 L (27.0-34.0) pg MCHC 31.7 L (33.0-35.0) g/dL Plt Count 293 (150-450) 10^3/uL Neut % (Auto) 79.3 H (42.2-75.2) % Lymph % (Auto) 17.5 L (20.5-50.1) % [place] % (Auto) 2.3 (2-8) % Eos % (Auto) 0.9 L (1.0-3.0) % Baso % (Auto) 0.0 (0.0-1.0) % Sodium 132 L (135-145) mmol/L Potassium 4.7 (3.6-5.0) mmol/L Chloride 105 (101-111) mmol/L Carbon Dioxide 19.0 L (21.0-31.0) mmol/L Anion Gap 12.7 BUN 41 H D (7-18) mg/dL Creatinine 1.6 H (0.6-1.3) mg/dL Est Cr Clr Drug Dosing 47.87 mL/min Estimated GFR (MDRD) 35 BUN/Creatinine Ratio 25.62 Glucose 89 (74-105) mg/dL Lactic Acid 1.2 (0.5-2.2) mmol/L Calcium 8.4 (8.4-10.2) mg/dl Total Bilirubin 0.5 (0.2-1.0) mg/dL AST 22 (10-42) IU/L ALT 16 (10-60) IU/L Alkaline Phosphatase 54 (42-121) IU/L Total Protein 7.1 (6.7-8.2) g/dl Albumin 3.3 (3.2-5.5) g/dl Globulin 3.8 Albumin/Globulin Ratio 0.87 Meds: Medications Generic Name Dose Route Start Last Admin Trade Name Freq PRN Reason Stop Dose Admin Sodium Chloride 1,000 mls @ 999 mls/hr 07/03/17 02:53 07/03/17 03:00 Normal Saline IV 07/03/17 03:53 999 mls/hr .BOLUS ONE Administration Sodium Chloride 1,000 mls @ 999 mls/hr 07/03/17 03:16 07/03/17 03:06 Normal Saline IV 07/03/17 04:16 999 mls/hr .BOLUS ONE Administration Norepinephrine Bitartrate 4 mg 250 mls @ 7.5 mls/hr 07/03/17 03:30 / Dextrose/Water IV TITRATE NELLY Protocol 2 MCG/MIN Discontinued Medications Generic Name Dose Route Start Last Admin Trade Name Freq PRN Reason Stop Dose Admin Albuterol/Ipratropium 3 ml 07/03/17 02:08 07/03/17 02:23 Duoneb 3.0-0.5 Mg/3 Ml NEB 07/03/17 02:09 3 ml ONETIME ONE Administration Ceftriaxone Sodium 1 gm 07/03/17 03:21 07/03/17 03:27 Rocephin IVPUSH 07/03/17 03:22 1 gm ONETIME ONE Administration - Re-Assessments/Exams Free Text/Narrative Re-Assessment/Exam: 07/03/17 03:[address] Villaolbos who kindly accepted pt. Departure - Departure Time of Disposition: 03:38 Disposition: DC/Tfer to Acute Hospital 02 Condition: Poor Clinical Impression: Septic shock Pneumonia Qualifiers: Pneumonia type: due to unspecified organism Laterality: right Lung location: lower lobe of lung Qualified Code(s): J18.1 - Lobar pneumonia, unspecified organism - Discharge Information Forms: Interfacility Transfer EMTALA - My Orders Last 24 Hours: My Active Orders 07/03/17 02:08 RT Aerosol Therapy [RC] ASDIRECTED 07/03/17 02:15 CULTURE BLOOD [BC] Stat 07/03/17 02:53 Sodium Chloride 0.9% [Normal Saline] 1,000 ml IV .BOLUS 07/03/17 03:16 Sodium Chloride 0.9% [Normal Saline] 1,000 ml IV .BOLUS 07/03/17 03:30 Norepinephrine 4 MG in D5W @ 2 MCG/MIN(250ml) Norepinephrine [Levophed] 4 mg Dextrose 5% in Water 246 ml IV TITRATE - Assessment/Plan Last 24 Hours: My Active Orders 07/03/17 02:08 RT Aerosol Therapy [RC] ASDIRECTED 07/03/17 02:15 CULTURE BLOOD [BC] Stat 07/03/17 02:53 Sodium Chloride 0.9% [Normal Saline] 1,000 ml IV .BOLUS 07/03/17 03:16 Sodium Chloride 0.9% [Normal Saline] 1,000 ml IV .BOLUS 07/03/17 03:30 Norepinephrine 4 MG in D5W @ 2 MCG/MIN(250ml) Norepinephrine [Levophed] 4 mg Dextrose 5% in Water 246 ml IV TITRATE
[2017-07-03] MEDS ORDERED: Albuterol/Ipratropium 3.0-0.5 MG/3 ML Neb Soln NEB ONE (02:08)
[2017-07-03] MEDS ORDERED: Sodium Chloride 0.9% 1,000 ML IV ONE ×3 (02:53→04:08)
[2017-07-03] MEDS ORDERED: cefTRIAXone 1 GM Vial IVPUSH ONE (03:21)
[2017-07-03] MEDS ORDERED: Norepinephrine 4 MG in Dextrose 5% in Water 246 ML IV SCH ×2 (03:30)
[2017-07-03] MEDS: Norepinephrine 4 MG/4 ML SDV ONE (03:41)
[2017-07-03] MEDS ORDERED: Ondansetron 4 MG/2 ML SDV IV ONE (03:43)
[2017-07-03] MEDS ORDERED: Ondansetron 4 MG/2 ML SDV ONE (03:44)
[2017-07-03 03:47] VITALS: BP 98/41
[2017-07-03] MEDS ORDERED: Albuterol 0.083% 2.5 MG/3 ML Neb Soln ONE (04:11)
[2017-07-03] MEDS ORDERED: Albuterol 0.083% 2.5 MG/3 ML Neb Soln NEB ONE (04:14)
== END 2017-07-03 04:19 ==
LOC: DL.ED 01:43
DX: A41.9 Sepsis, unspecified organism (principal); R65.21 Severe sepsis with septic shock; J18.9 Pneumonia, unspecified organism; I10 Essential (primary) hypertension; Z88.1 Allergy status to other antibiotic agents; Z88.8 Allergy status to other drugs, medicaments and biological substances; Z79.899 Other long term (current) drug therapy; Z79.4 Long term (current) use of insulin; Z87.891 Personal history of nicotine dependence
CPT/HCPCS: 36415; 71045; 80053; 83605; 85025; 87040; 96365; 96368; 96375; 99285; J0696; J2405; J7030; J7620

== ENCOUNTER 2017-08-28 14:04 | Emergency (ER) | payer MEDICARE, MEDICAID ==
[2017-08-28 14:16] VITALS: BP 130/60
--- NOTE | 2017-08-28 14:41 | EDM.PDOC ---
ED HPI GENERAL MEDICAL PROBLEM - General Chief Complaint: Flank Pain Stated Complaint: [id number] BAD INSIDE PAINS Time Seen by Provider: 08/28/17 14:30 Source of Information: Reports: Patient History Limitations: Reports: No Limitations - History of Present Illness INITIAL COMMENTS - FREE TEXT/NARRATIVE: This 41 yo female patient reports to the ED with generalized abdominal pain. The patient reports she started to have increased pain in her abdomen on Monday, but it has gotten worse since that time. The patient attempted to get an appointment at the [facility], but could not get an appointment until Monday. The patient reports she has chronic pain due to kidney problems, RA and fibromyalgia. The patient also reports that she is concerned about possible [place] and lyme disease due to mosquito and tick bites in the past couple of weeks. The patient reports she is currently wearing her Fentanyl patch and last dose of oxycodone was last night. Onset Date: 08/26/17 Duration: Constant, Getting Worse Location: Reports: Abdomen Quality: Reports: Ache, Other (cramping) Severity: Severe Improves with: Reports: None Worsens with: Reports: None Associated Symptoms: Reports: No Other Symptoms Left Flank Pain Score (Numeric/FACES): 7 - Related Data Allergies Allergy/AdvReac Type Severity Reaction Status Date / Time daptomycin Allergy Rash Verified 08/28/17 14:16 rituximab [From Rituxan] Allergy Difficulty Verified 08/28/17 14:16 Breathing Home Meds: Home Meds Ascorbic Acid [Vitamin C] 250 mg PO TID 03/08/14 [History] predniSONE 6 mg PO DAILY 03/08/14 [History] Ferrous Sulfate [Iron] 325 mg PO TID 09/13/14 [History] Pantoprazole [Pantoprazole Sodium] 40 mg PO DAILY 09/13/14 [History] DULoxetine [Cymbalta] 60 mg PO DAILY 08/07/15 [History] Insulin Glarg,Human.Rec.Analog [LantUS Solostar] 35 units SQ BID 08/07/15 [ History] rOPINIRole [Requip] 1 mg PO BEDTIME 08/13/15 [History] Multivitamin [Multivitamins] 1 each PO DAILY 09/20/15 [History] oxyCODONE HCl/Acetaminophen [Endocet 10-325 mg Tablet] 1 each PO Q4H PRN [History] Lisinopril [Prinivil] 2.5 mg PO DAILY 04/14/16 [History] Oxybutynin [Oxybutynin ER] 5 mg PO BEDTIME 04/14/16 [History] Pregabalin [Lyrica] 150 mg PO BEDTIME 04/14/16 [History] cycloSPORINE [Restasis] 1 drop EYEBOTH DAILY 04/14/16 [History] Cholecalciferol (Vitamin D3) [Vitamin D3] 400 units PO DAILY 04/13/17 [History] metFORMIN [Glucophage] 500 mg PO BIDMEALS 05/03/17 [History] traZODone HCl [Trazodone HCl] 50 mg PO BEDTIME PRN 06/06/17 [History] Diclofenac Epolamine [Flector] 1 patch TOP .Q3DAY 06/16/17 [History] Past Medical History - Past Health History Medical/Surgical History: Denies Medical/Surgical History HEENT History: Reports: Cataract, Impaired Vision, Other (See Below) Other HEENT History: wears glasses Cardiovascular History: Reports: Hypertension, SOB on Exertion Respiratory History: Reports: Bronchitis, Recurrent, Sleep Apnea, SOB Gastrointestinal History: Reports: Gastritis, Other (See Below) Other Gastrointestinal History: chronic stomach pains. 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 OSTEOMELITIS OF RIGHT FOOT, healed 05/10/17 Neurological History: Reports: Other (See Below) Other Neuro History: SOMNOLENCE, DAYTIME, nerve damage to back and legs Psychiatric History: Reports: Anxiety, Eating Disorders Endocrine/Metabolic History: Reports: Diabetes, Type II, IDDM, Obesity/BMI 30+ Hematologic History: Reports: Iron Deficiency, Other (See Below) Other Hematologic History: HX OF SEPSIS. HX OF MRSA INFECTION Immunologic History: Reports: Immunosuppression, Other (See Below) Other Immunologic History: RA Oncologic (Cancer) History: Reports: None Dermatologic History: Reports: Cellulitis, Other (See Below) Other Dermatologic History: hx of mrsa. HX OF SKIN ULCERS OF FOOT, BILAT. DIABETIC SKIN ULCERS. CELLULITIS OF L ANTERIOR LOWER LEG. BIOPSY OF SKIN LESION - Infectious Disease History Infectious Disease History: Reports: MRSA Other Infectious Disease History: CELLULITIS - Past Surgical History Head Surgeries/Procedures: Reports: None HEENT Surgical History: Reports: Cataract Surgery Cardiovascular Surgical History: Reports: None Respiratory Surgical History: Reports: None GI Surgical History: Reports: None Female Surgical History: Reports: Other (See Below) Other Female Surgeries/Procedures: cyst on her left kidney Endocrine Surgical History: Reports: None Neurological Surgical History: Reports: None Musculoskeletal Surgical History: Reports: Amputation, Other (See Below) Other Musculoskeletal Surgeries/Procedures:: right toe ampulation Oncologic Surgical History: Reports: None Dermatological Surgical History: Reports: Other (See Below) Social & Family History - Family History Family Medical History: Noncontributory HEENT: Reports: None Cardiac: Reports: None Respiratory: Reports: None GI: Reports: None : Reports: None OBGYN: Reports: None Musculoskeletal: Reports: RA Neurological: Reports: None Psychiatric: Reports: Depression Endocrine/Metabolic: Reports: Diabetes, type II Hematologic: Reports: None Immunologic: Reports: None Dermatologic: Reports: None Oncologic: Reports: None - Tobacco Use Smoking Status *Q: Never Smoker Second Hand Smoke Exposure: No - Caffeine Use Caffeine Use: Reports: Coffee, Soda, Tea Other Caffeine Use: 16oz daily Caffeine Use Comment: 3/day - Recreational Drug Use Recreational Drug Use: No - Living Situation & Occupation Living situation: Reports: with Family ED ROS GENERAL - Review of Systems Review Of Systems: ROS reveals no pertinent complaints other than HPI. ED EXAM, GI/ABD - Physical Exam Exam: See Below Exam Limited By: No Limitations General Appearance: Alert, WD/WN, Moderate Distress, Obese Eyes: Bilateral: Normal Appearance, EOMI Ears: Normal External Exam, Normal Canal, Hearing Grossly Normal, Normal TMs Nose: Normal Inspection, Normal Mucosa, No Blood Throat/Mouth: Normal Inspection, Normal Lips, Normal Teeth, Normal Gums, Normal Oropharynx, Normal Voice, No Airway Compromise Head: Atraumatic, Normocephalic Neck: Normal Inspection, Supple, Non-Tender, Full Range of Motion Respiratory/Chest: No Respiratory Distress, Lungs Clear, Normal Breath Sounds, No Accessory Muscle Use, Chest Non-Tender Cardiovascular: Normal Peripheral Pulses, Regular Rate, Rhythm, No Edema, No Gallop, No JVD, No Murmur, No Rub GI/Abdominal Exam: Normal Bowel Sounds, Tender (diffuse), Other (morbid obesity) (Female) Exam: Deferred Rectal (Female) Exam: Deferred Back Exam: Normal Inspection, Full Range of Motion, NT Extremities: Normal Inspection, Normal Range of Motion, Non-Tender, Normal Capillary Refill, No Pedal Edema Neurological: Alert, Oriented, CN II-XII Intact, Normal Cognition, Normal Gait, Normal Reflexes, No Motor/Sensory Deficits Psychiatric: Normal Affect, Normal Mood Skin Exam: Warm, Dry, Intact, Normal Color, Other (diffuse rash) Lymphatic: No Adenopathy Course - Vital Signs Last Recorded V/S: Last Vital Signs Temp 35.5 C 08/28/17 14:09 Pulse 116 H 08/28/17 14:09 Resp 18 08/28/17 14:09 BP 130/60 08/28/17 14:09 Pulse Ox 96 08/28/17 14:09 - Orders/Labs/Meds Orders: Active Orders 24 hr Category Date Time Status CULTURE BLOOD [BC] Stat Lab 08/28/17 14:36 Ordered CULTURE BLOOD [BC] Stat Lab 08/28/17 14:36 Ordered DRUG SCREEN URINE BIORAD [URCHEM] Stat Lab 08/28/17 14:34 Ordered HCG QUALITATIVE,URINE [URCHEM] Stat Lab 08/28/17 14:34 Ordered LYME, WESTERN BLOT, SERUM [REF] Urgent Lab 08/28/17 14:34 Ordered UA W/MICROSCOPIC [URIN] Stat Lab 08/28/17 14:34 Ordered [place] VIRUS IGM [REF] Urgent Lab 08/28/17 14:34 Ordered Blood Culture x2 Reflex Set [OM.PC] Stat Oth 08/28/17 14:35 Ordered Labs: Laboratory Tests 08/28/17 08/28/17 08/28/17 Range/Units 14:44 15:00 15:00 WBC 6.0 (5.0-10.0) 10^3/uL RBC 4.45 (4.2-5.4) 10^6/uL Hgb 11.2 L (12.0-16.0) g/dL Hct 36.4 L (37.0-47.0) % MCV 81.8 (80-100) fL MCH 25.2 L (27.0-34.0) pg MCHC 30.8 L (33.0-35.0) g/dL Plt Count 299 (150-450) 10^3/uL Neut % (Auto) 78.3 H (42.2-75.2) % Lymph % (Auto) 16.1 L (20.5-50.1) % [place] % (Auto) 3.2 (2-8) % Eos % (Auto) 2.2 (1.0-3.0) % Baso % (Auto) 0.2 (0.0-1.0) % Sodium 134 L (135-145) mmol/L Potassium 4.4 (3.6-5.0) mmol/L Chloride 101 (101-111) mmol/L Carbon Dioxide 24.0 (21.0-31.0) mmol/L Anion Gap 13.4 BUN 14 D (7-18) mg/dL Creatinine 0.9 (0.6-1.3) mg/dL Est Cr Clr Drug Dosing 82.14 mL/min Estimated GFR (MDRD) > 60 BUN/Creatinine Ratio 15.55 Glucose 125 H (74-105) mg/dL Lactic Acid 1.8 (0.5-2.2) mmol/L Calcium 8.9 (8.4-10.2) mg/dl Total Bilirubin 0.4 (0.2-1.0) mg/dL AST 19 (10-42) IU/L ALT 11 (10-60) IU/L Alkaline Phosphatase 50 (42-121) IU/L Total Protein 7.8 (6.7-8.2) g/dl Albumin 3.2 (3.2-5.5) g/dl Globulin 4.6 Albumin/Globulin Ratio 0.70 Amylase (28-100) U/L Lipase (22-51) U/L Urine Color (YELLOW) Urine Appearance (CLEAR) Urine pH (5.0-9.0) Ur Specific [place] (1.005-1.030) Urine Protein (NEGATIVE) Urine Glucose (UA) (NEGATIVE) Urine Ketones (NEGATIVE) Urine Occult Blood (NEGATIVE) Urine Nitrite (NEGATIVE) Urine Bilirubin (NEGATIVE) Urine Urobilinogen (0.2-1.0) mg/dL Ur Leukocyte Esterase (NEGATIVE) Urine RBC /HPF Urine WBC (0-5/HPF) /HPF Ur Epithelial Cells /HPF Amorphous Sediment (0/HPF) /HPF Urine Bacteria (0-FEW/HPF) /HPF Urine Mucus /LPF Urine HCG, Qual Urine Opiates Screen (NEGATIVE) Ur Oxycodone Screen (NEGATIVE) Urine Methadone Screen (NEGATIVE) Ur Barbiturates Screen (NEGATIVE) U Tricyclic Antidepress (NEGATIVE) Ur Phencyclidine Scrn (NEGATIVE) Ur Amphetamine Screen (NEGATIVE) U Methamphetamines Scrn (NEGATIVE) Urine MDMA Screen (NEGATIVE) U Benzodiazepines Scrn (NEGATIVE) Urine Cocaine Screen (NEGATIVE) U Marijuana (THC) Screen (NEGATIVE) 08/28/17 08/28/17 08/28/17 Range/Units 15:00 15:18 15:18 WBC (5.0-10.0) 10^3/uL RBC (4.2-5.4) 10^6/uL Hgb (12.0-16.0) g/dL Hct (37.0-47.0) % MCV (80-100) fL MCH (27.0-34.0) pg MCHC (33.0-35.0) g/dL Plt Count (150-450) 10^3/uL Neut % (Auto) (42.2-75.2) % Lymph % (Auto) (20.5-50.1) % [place] % (Auto) (2-8) % Eos % (Auto) (1.0-3.0) % Baso % (Auto) (0.0-1.0) % Sodium (135-145) mmol/L Potassium (3.6-5.0) mmol/L Chloride (101-111) mmol/L Carbon Dioxide (21.0-31.0) mmol/L Anion Gap BUN (7-18) mg/dL Creatinine (0.6-1.3) mg/dL Est Cr Clr Drug Dosing mL/min Estimated GFR (MDRD) BUN/Creatinine Ratio Glucose (74-105) mg/dL Lactic Acid (0.5-2.2) mmol/L Calcium (8.4-10.2) mg/dl Total Bilirubin (0.2-1.0) mg/dL AST (10-42) IU/L ALT (10-60) IU/L Alkaline Phosphatase (42-121) IU/L Total Protein (6.7-8.2) g/dl Albumin (3.2-5.5) g/dl Globulin Albumin/Globulin Ratio Amylase 19 L (28-100) U/L Lipase 32 (22-51) U/L Urine Color Yellow (YELLOW) Urine Appearance Cloudy (CLEAR) Urine pH 6.0 (5.0-9.0) Ur Specific [place] 1.015 (1.005-1.030) Urine Protein 30 H (NEGATIVE) Urine Glucose (UA) Negative (NEGATIVE) Urine Ketones Negative (NEGATIVE) Urine Occult Blood Moderate H (NEGATIVE) Urine Nitrite Negative (NEGATIVE) Urine Bilirubin Small H (NEGATIVE) Urine Urobilinogen 0.2 (0.2-1.0) mg/dL Ur Leukocyte Esterase Negative (NEGATIVE) Urine RBC 5-10 H /HPF Urine WBC 0-5 (0-5/HPF) /HPF Ur Epithelial Cells Moderate H /HPF Amorphous Sediment Rare (0/HPF) /HPF Urine Bacteria Rare (0-FEW/HPF) /HPF Urine Mucus Few H /LPF Urine HCG, Qual Negative Urine Opiates Screen (NEGATIVE) Ur Oxycodone Screen (NEGATIVE) Urine Methadone Screen (NEGATIVE) Ur Barbiturates Screen (NEGATIVE) U Tricyclic Antidepress (NEGATIVE) Ur Phencyclidine Scrn (NEGATIVE) Ur Amphetamine Screen (NEGATIVE) U Methamphetamines Scrn (NEGATIVE) Urine MDMA Screen (NEGATIVE) U Benzodiazepines Scrn (NEGATIVE) Urine Cocaine Screen (NEGATIVE) U Marijuana (THC) Screen (NEGATIVE) 08/28/17 Range/Units 15:18 WBC (5.0-10.0) 10^3/uL RBC (4.2-5.4) 10^6/uL Hgb (12.0-16.0) g/dL Hct (37.0-47.0) % MCV (80-100) fL MCH (27.0-34.0) pg MCHC (33.0-35.0) g/dL Plt Count (150-450) 10^3/uL Neut % (Auto) (42.2-75.2) % Lymph % (Auto) (20.5-50.1) % [place] % (Auto) (2-8) % Eos % (Auto) (1.0-3.0) % Baso % (Auto) (0.0-1.0) % Sodium (135-145) mmol/L Potassium (3.6-5.0) mmol/L Chloride (101-111) mmol/L Carbon Dioxide (21.0-31.0) mmol/L Anion Gap BUN (7-18) mg/dL Creatinine (0.6-1.3) mg/dL Est Cr Clr Drug Dosing mL/min Estimated GFR (MDRD) BUN/Creatinine Ratio Glucose (74-105) mg/dL Lactic Acid (0.5-2.2) mmol/L Calcium (8.4-10.2) mg/dl Total Bilirubin (0.2-1.0) mg/dL AST (10-42) IU/L ALT (10-60) IU/L Alkaline Phosphatase (42-121) IU/L Total Protein (6.7-8.2) g/dl Albumin (3.2-5.5) g/dl Globulin Albumin/Globulin Ratio Amylase (28-100) U/L Lipase (22-51) U/L Urine Color (YELLOW) Urine Appearance (CLEAR) Urine pH (5.0-9.0) Ur Specific [place] (1.005-1.030) Urine Protein (NEGATIVE) Urine Glucose (UA) (NEGATIVE) Urine Ketones (NEGATIVE) Urine Occult Blood (NEGATIVE) Urine Nitrite (NEGATIVE) Urine Bilirubin (NEGATIVE) Urine Urobilinogen (0.2-1.0) mg/dL Ur Leukocyte Esterase (NEGATIVE) Urine RBC /HPF Urine WBC (0-5/HPF) /HPF Ur Epithelial Cells /HPF Amorphous Sediment (0/HPF) /HPF Urine Bacteria (0-FEW/HPF) /HPF Urine Mucus /LPF Urine HCG, Qual Urine Opiates Screen Negative (NEGATIVE) Ur Oxycodone Screen Positive H (NEGATIVE) Urine Methadone Screen Negative (NEGATIVE) Ur Barbiturates Screen Negative (NEGATIVE) U Tricyclic Antidepress Negative (NEGATIVE) Ur Phencyclidine Scrn Negative (NEGATIVE) Ur Amphetamine Screen Negative (NEGATIVE) U Methamphetamines Scrn Negative (NEGATIVE) Urine MDMA Screen Negative (NEGATIVE) U Benzodiazepines Scrn Negative (NEGATIVE) Urine Cocaine Screen Negative (NEGATIVE) U Marijuana (THC) Screen Negative (NEGATIVE) Departure - Departure Time of Disposition: 16:37 Disposition: Home, Self-Care 01 Condition: Fair Clinical Impression: Diverticulitis large intestine Qualifiers: Diverticulitis bleeding: without bleeding Diverticulitis complication: without perforation or abscess Qualified Code(s): K57.32 - Diverticulitis of large intestine without perforation or abscess without bleeding - Discharge Information Instructions: Diverticulitis, [id number] Forms: ED Department Discharge Care Plan Goals: The patient was advised of the examination, lab and CT results during the visit. The patient was discharged with a script for Cipro (500 mg) to take 1 by mouth 2 times per day for 7 days and Metronidazole (500 mg) to take 1 by mouth 3 times per day for 7 days. The patient should continue to take her medications as prescribed. If the patient has any additional symptoms or concerns, the patient should follow-up with her primary care provider or return to the emergency department. - My Orders Last 24 Hours: My Active Orders 08/28/17 14:34 DRUG SCREEN URINE BIORAD [URCHEM] Stat HCG QUALITATIVE,URINE [URCHEM] Stat LYME, WESTERN BLOT, SERUM [REF] Urgent UA W/MICROSCOPIC [URIN] Stat [place] VIRUS IGM [REF] Urgent 08/28/17 14:35 Blood Culture x2 Reflex Set [OM.PC] Stat 08/28/17 14:36 CULTURE BLOOD [BC] Stat CULTURE BLOOD [BC] Stat - Assessment/Plan Last 24 Hours: My Active Orders 08/28/17 14:34 DRUG SCREEN URINE BIORAD [URCHEM] Stat HCG QUALITATIVE,URINE [URCHEM] Stat LYME, WESTERN BLOT, SERUM [REF] Urgent UA W/MICROSCOPIC [URIN] Stat [place] VIRUS IGM [REF] Urgent 08/28/17 14:35 Blood Culture x2 Reflex Set [OM.PC] Stat 08/28/17 14:36 CULTURE BLOOD [BC] Stat CULTURE BLOOD [BC] Stat
[2017-08-28 15:46] LABS: CHLORIDE,CL 101 mmol/L (101-111); SODIUM,NA 134 mmol/L (135-145)
--- NOTE | 2017-08-28 16:30 | CT ---
Clinical history: 41-year-old obese (261 pounds) diabetic female with left flank pain and hematuria. Scan technique: Volume acquisition of data emergency unenhanced CT scan of the abdomen and pelvis (ki dneys/ureters/bladder) obtained while the patient was lying supine on the Siemens multi slice scanner [place], [place]. All data archived in the PACS system for storage, r eformatting and study. Note: [address] exams since September 2015. Interpretation: Abnormal. 1. Isolated tiny punctate calcifications upper and mid pole calyces of the left kidney (nephrolithias is) without associated current evidence of pyelocaliectasis or obstructive uropathy on the left. 2. Isolated tiny phlebolith-like radiopacities both sides of the pelvis and urinary bladder that are evident on previous exam 04 June. No abnormal dilatation of either ureter. These calcifications pres ent on previous CT exam April 2017 and August 2015. 3. Numerous diverticula sigmoid colon without current signs of inflammation. No inflammatory "dirty" peritoneal fat. No abscess. 4. Gallbladder, unenhanced liver, stomach, spleen, pancreas and adrenal glands unremarkable. Symmetri c normal urinary bladder. 5. Normal caliber aortoiliac vessels. Spine unremarkable. Peribronchial "cuffing" and patchy bibasal bronchiectatic like infiltrates. CONCLUSION: Sigmoid diverticulosis. Nephrolithiasis left kidney. No new signs of ureterolithiasis or obstructive uropathy on the left.
== END 2017-08-28 16:58 | disposition home or self-care (01) ==
LOC: DL.ED 14:04
DX: K57.32 Diverticulitis of large intestine without perforation or abscess without bleeding (principal); I10 Essential (primary) hypertension; E11.9 Type 2 diabetes mellitus without complications; Z88.1 Allergy status to other antibiotic agents; Z88.8 Allergy status to other drugs, medicaments and biological substances; Z79.899 Other long term (current) drug therapy; Z79.4 Long term (current) use of insulin
CPT/HCPCS: 36415; 74176; 80053; 80305; 81001; 81025; 82150; 83605; 83690; 85025; 86617; 86618; 86788; 87040; 99283; 99284

== ENCOUNTER 2017-09-18 00:59 | Emergency (ER) | payer MEDICARE, MEDICAID ==
[2017-09-18] MEDS ORDERED: Sodium Chloride 0.9% 10 ML Syringe FLUSH PRN (01:23)
[2017-09-18] MEDS ORDERED: Morphine 2 MG/ML Syringe IV ONE (01:23)
[2017-09-18] MEDS ORDERED: Iopamidol 612 MG/ML 100 ML Bottle IVPUSH ONE (01:33)
[2017-09-18] MEDS ORDERED: Sodium Chloride 0.9% 1,000 ML IV ONE (03:39)
--- NOTE | 2017-09-18 03:40 | EDM.PDOC ---
ED HPI GENERAL MEDICAL PROBLEM - General Chief Complaint: Abdominal Pain Stated Complaint: R SIDE ABD PAIN [phone] Time Seen by Provider: 09/18/17 01:15 Source of Information: Reports: Patient, RN, RN Notes Reviewed History Limitations: Reports: No Limitations - History of Present Illness INITIAL COMMENTS - FREE TEXT/NARRATIVE: Pt presents to the ER with c/o severe right sided pain. Patient points to the lower right quadrant and side when she describes the pain. Pt states she still has her gallbladder and appendix. Patient denies fever or chills, N/V/D. Patient states her appetite has been severely decreased recently and she has been losing weight. Patient states pain with movement. Patient denies lifting or turning wrong, pulling muscles. Pt denies any problems with urination. Patient states she has had a recent bout with diverticulitis and was on antibiotics. Onset: Today, Sudden Right Upper Abdomen Pain Score (Numeric/FACES): 7 - Related Data Allergies Allergy/AdvReac Type Severity Reaction Status Date / Time daptomycin Allergy Rash Verified 09/18/17 01:08 rituximab [From Rituxan] Allergy Difficulty Verified 09/18/17 01:08 Breathing Home Meds: Home Meds Ascorbic Acid [Vitamin C] 250 mg PO TID 03/08/14 [History] predniSONE 6 mg PO DAILY 03/08/14 [History] Ferrous Sulfate [Iron] 325 mg PO TID 09/13/14 [History] Pantoprazole [Pantoprazole Sodium] 40 mg PO DAILY 09/13/14 [History] DULoxetine [Cymbalta] 60 mg PO DAILY 08/07/15 [History] Insulin Glarg,Human.Rec.Analog [LantUS Solostar] 35 units SQ BID 08/07/15 [ History] rOPINIRole [Requip] 1 mg PO BEDTIME 08/13/15 [History] Multivitamin [Multivitamins] 1 each PO DAILY 09/20/15 [History] oxyCODONE HCl/Acetaminophen [Endocet 10-325 mg Tablet] 1 each PO Q4H PRN [History] Lisinopril [Prinivil] 2.5 mg PO DAILY 04/14/16 [History] Oxybutynin [Oxybutynin ER] 5 mg PO BEDTIME 04/14/16 [History] Pregabalin [Lyrica] 150 mg PO BEDTIME 04/14/16 [History] cycloSPORINE [Restasis] 1 drop EYEBOTH DAILY 04/14/16 [History] Cholecalciferol (Vitamin D3) [Vitamin D3] 400 units PO DAILY 04/13/17 [History] metFORMIN [Glucophage] 500 mg PO BIDMEALS 05/03/17 [History] traZODone HCl [Trazodone HCl] 50 mg PO BEDTIME PRN 06/06/17 [History] Diclofenac Epolamine [Flector] 1 patch TOP .Q3DAY 06/16/17 [History] Past Medical History - Past Health History Medical/Surgical History: Denies Medical/Surgical History HEENT History: Reports: Cataract, Impaired Vision, Other (See Below) Other HEENT History: wears glasses Cardiovascular History: Reports: Hypertension, SOB on Exertion Respiratory History: Reports: Bronchitis, Recurrent, Sleep Apnea, SOB Gastrointestinal History: Reports: Gastritis, Other (See Below) Other Gastrointestinal History: chronic stomach pains. 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 OSTEOMELITIS OF RIGHT FOOT, healed 05/10/17 Neurological History: Reports: Other (See Below) Other Neuro History: SOMNOLENCE, DAYTIME, nerve damage to back and legs Psychiatric History: Reports: Anxiety, Eating Disorders Endocrine/Metabolic History: Reports: Diabetes, Type II, IDDM, Obesity/BMI 30+ Hematologic History: Reports: Iron Deficiency, Other (See Below) Other Hematologic History: HX OF SEPSIS. HX OF MRSA INFECTION Immunologic History: Reports: Immunosuppression, Other (See Below) Other Immunologic History: RA Oncologic (Cancer) History: Reports: None Dermatologic History: Reports: Cellulitis, Other (See Below) Other Dermatologic History: hx of mrsa. HX OF SKIN ULCERS OF FOOT, BILAT. DIABETIC SKIN ULCERS. CELLULITIS OF L ANTERIOR LOWER LEG. BIOPSY OF SKIN LESION - Infectious Disease History Infectious Disease History: Reports: MRSA Other Infectious Disease History: CELLULITIS - Past Surgical History Head Surgeries/Procedures: Reports: None HEENT Surgical History: Reports: Cataract Surgery Cardiovascular Surgical History: Reports: None Respiratory Surgical History: Reports: None GI Surgical History: Reports: None Female Surgical History: Reports: Other (See Below) Other Female Surgeries/Procedures: cyst on her left kidney Endocrine Surgical History: Reports: None Neurological Surgical History: Reports: None Musculoskeletal Surgical History: Reports: Amputation, Other (See Below) Other Musculoskeletal Surgeries/Procedures:: right toe ampulation Oncologic Surgical History: Reports: None Dermatological Surgical History: Reports: Other (See Below) Social & Family History - Family History Family Medical History: Noncontributory HEENT: Reports: None Cardiac: Reports: None Respiratory: Reports: None GI: Reports: None : Reports: None OBGYN: Reports: None Musculoskeletal: Reports: RA Neurological: Reports: None Psychiatric: Reports: Depression Endocrine/Metabolic: Reports: Diabetes, type II Hematologic: Reports: None Immunologic: Reports: None Dermatologic: Reports: None Oncologic: Reports: None - Tobacco Use Smoking Status *Q: Never Smoker Second Hand Smoke Exposure: No - Caffeine Use Caffeine Use: Reports: Coffee, Soda, Tea Other Caffeine Use: 16oz daily Caffeine Use Comment: 3/day - Recreational Drug Use Recreational Drug Use: No - Living Situation & Occupation Living situation: Reports: with Family ED ROS GENERAL - Review of Systems Review Of Systems: ROS reveals no pertinent complaints other than HPI. ED EXAM, GI/ABD - Physical Exam Exam: See Below Exam Limited By: No Limitations General Appearance: Alert, WD/WN, Moderate Distress Eyes: Bilateral: Normal Appearance, EOMI Ears: Normal External Exam, Hearing Grossly Normal Nose: Normal Inspection Throat/Mouth: Normal Inspection, Normal Voice, No Airway Compromise Head: Atraumatic, Normocephalic Neck: Normal Inspection, Full Range of Motion Respiratory/Chest: No Respiratory Distress, No Accessory Muscle Use, Chest Non- Tender, Decreased Breath Sounds Cardiovascular: Normal Peripheral Pulses, Regular Rate, Rhythm GI/Abdominal Exam: Normal Bowel Sounds, Soft, No Organomegaly, No Distention, No Abnormal Bruit, No Mass, Tender (RLQ, RUQ) (Female) Exam: Deferred Rectal (Female) Exam: Deferred Back Exam: Normal Inspection, Full Range of Motion, CVA Tenderness (R) Extremities: Normal Inspection, Arm Pain, Leg Pain, Limited Range of Motion, Other (HX RA, deformities of hand joints) Neurological: Alert, Oriented, Normal Cognition Psychiatric: Normal Affect, Normal Mood Skin Exam: Warm, Dry, Intact, Normal Color, No Rash Lymphatic: No Adenopathy Course - Vital Signs Last Recorded V/S: Last Vital Signs Temp 96.9 F 09/18/17 01:04 Pulse 87 09/18/17 01:04 Resp 18 09/18/17 01:04 BP 112/54 L 09/18/17 01:04 Pulse Ox 96 09/18/17 01:04 - Orders/Labs/Meds Orders: Active Orders 24 hr Category Date Time Status Peripheral IV Care [RC] . DIRECTED Care 09/18/17 01:23 Active DRUG SCREEN URINE BIORAD [URCHEM] Stat Lab 09/18/17 04:54 Ordered HCG QUALITATIVE,URINE [URCHEM] Stat Lab 09/18/17 04:54 Ordered UA W/MICROSCOPIC [URIN] Stat Lab 09/18/17 04:54 Ordered Sodium Chloride 0.9% [Saline Flush] Med 09/18/17 01:23 Active 10 ml FLUSH ASDIRECTED PRN Peripheral IV Insertion Adult [OM.PC] Stat Oth 09/18/17 01:23 Ordered Medication Orders Sodium Chloride (Saline Flush) 10 ml FLUSH ASDIRECTED PRN PRN Reason: Keep Vein Open Last Admin: 09/18/17 01:37 Dose: 10 ml Labs: Laboratory Tests 09/18/17 09/18/17 09/18/17 Range/Units 01:30 01:30 04:54 WBC 2.9 L (5.0-10.0) 10^3/uL RBC 4.06 L (4.2-5.4) 10^6/uL Hgb 10.2 L (12.0-16.0) g/dL Hct 34.0 L (37.0-47.0) % MCV 83.7 (80-100) fL MCH 25.1 L (27.0-34.0) pg MCHC 30.0 L (33.0-35.0) g/dL Plt Count 454 H D (150-450) 10^3/uL Neut % (Auto) 58.1 (42.2-75.2) % Lymph % (Auto) 33.8 (20.5-50.1) % [place] % (Auto) 4.4 (2-8) % Eos % (Auto) 3.4 H (1.0-3.0) % Baso % (Auto) 0.3 (0.0-1.0) % Sodium 138 (135-145) mmol/L Potassium 5.0 (3.6-5.0) mmol/L Chloride 109 (101-111) mmol/L Carbon Dioxide 22.0 (21.0-31.0) mmol/L Anion Gap 12.0 BUN 27 H (7-18) mg/dL Creatinine 1.4 H (0.6-1.3) mg/dL Est Cr Clr Drug Dosing 52.81 mL/min Estimated GFR (MDRD) 41 BUN/Creatinine Ratio 19.28 Glucose 118 H (74-105) mg/dL Calcium 8.7 (8.4-10.2) mg/dl Total Bilirubin 0.3 (0.2-1.0) mg/dL AST 22 (10-42) IU/L ALT 9 L (10-60) IU/L Alkaline Phosphatase 39 L (42-121) IU/L Total Protein 7.6 (6.7-8.2) g/dl Albumin 3.2 (3.2-5.5) g/dl Globulin 4.4 Albumin/Globulin Ratio 0.73 Urine Color Yellow (YELLOW) Urine Appearance Slightly cloudy (CLEAR) Urine pH 5.5 (5.0-9.0) Ur Specific [place] 1.015 (1.005-1.030) Urine Protein 30 H (NEGATIVE) Urine Glucose (UA) Negative (NEGATIVE) Urine Ketones Negative (NEGATIVE) Urine Occult Blood Trace-intact H (NEGATIVE) Urine Nitrite Negative (NEGATIVE) Urine Bilirubin Negative (NEGATIVE) Urine Urobilinogen 0.2 (0.2-1.0) mg/dL Ur Leukocyte Esterase Negative (NEGATIVE) Urine RBC 0-5 /HPF Urine WBC 0-5 (0-5/HPF) /HPF Ur Epithelial Cells Moderate H /HPF Urine Bacteria Moderate H (0-FEW/HPF) /HPF Urine HCG, Qual Urine Opiates Screen (NEGATIVE) Ur Oxycodone Screen (NEGATIVE) Urine Methadone Screen (NEGATIVE) Ur Barbiturates Screen (NEGATIVE) U Tricyclic Antidepress (NEGATIVE) Ur Phencyclidine Scrn (NEGATIVE) Ur Amphetamine Screen (NEGATIVE) U Methamphetamines Scrn (NEGATIVE) Urine MDMA Screen (NEGATIVE) U Benzodiazepines Scrn (NEGATIVE) Urine Cocaine Screen (NEGATIVE) U Marijuana (THC) Screen (NEGATIVE) 09/18/17 09/18/17 Range/Units 04:54 04:54 WBC (5.0-10.0) 10^3/uL RBC (4.2-5.4) 10^6/uL Hgb (12.0-16.0) g/dL Hct (37.0-47.0) % MCV (80-100) fL MCH (27.0-34.0) pg MCHC (33.0-35.0) g/dL Plt Count (150-450) 10^3/uL Neut % (Auto) (42.2-75.2) % Lymph % (Auto) (20.5-50.1) % [place] % (Auto) (2-8) % Eos % (Auto) (1.0-3.0) % Baso % (Auto) (0.0-1.0) % Sodium (135-145) mmol/L Potassium (3.6-5.0) mmol/L Chloride (101-111) mmol/L Carbon Dioxide (21.0-31.0) mmol/L Anion Gap BUN (7-18) mg/dL Creatinine (0.6-1.3) mg/dL Est Cr Clr Drug Dosing mL/min Estimated GFR (MDRD) BUN/Creatinine Ratio Glucose (74-105) mg/dL Calcium (8.4-10.2) mg/dl Total Bilirubin (0.2-1.0) mg/dL AST (10-42) IU/L ALT (10-60) IU/L Alkaline Phosphatase (42-121) IU/L Total Protein (6.7-8.2) g/dl Albumin (3.2-5.5) g/dl Globulin Albumin/Globulin Ratio Urine Color (YELLOW) Urine Appearance (CLEAR) Urine pH (5.0-9.0) Ur Specific [place] (1.005-1.030) Urine Protein (NEGATIVE) Urine Glucose (UA) (NEGATIVE) Urine Ketones (NEGATIVE) Urine Occult Blood (NEGATIVE) Urine Nitrite (NEGATIVE) Urine Bilirubin (NEGATIVE) Urine Urobilinogen (0.2-1.0) mg/dL Ur Leukocyte Esterase (NEGATIVE) Urine RBC /HPF Urine WBC (0-5/HPF) /HPF Ur Epithelial Cells /HPF Urine Bacteria (0-FEW/HPF) /HPF Urine HCG, Qual Negative Urine Opiates Screen Positive H (NEGATIVE) Ur Oxycodone Screen Positive H (NEGATIVE) Urine Methadone Screen Negative (NEGATIVE) Ur Barbiturates Screen Negative (NEGATIVE) U Tricyclic Antidepress Negative (NEGATIVE) Ur Phencyclidine Scrn Negative (NEGATIVE) Ur Amphetamine Screen Negative (NEGATIVE) U Methamphetamines Scrn Negative (NEGATIVE) Urine MDMA Screen Negative (NEGATIVE) U Benzodiazepines Scrn Negative (NEGATIVE) Urine Cocaine Screen Negative (NEGATIVE) U Marijuana (THC) Screen Negative (NEGATIVE) Meds: Medications Generic Name Dose Route Start Last Admin Trade Name Freq PRN Reason Stop Dose Admin Sodium Chloride 10 ml 09/18/17 01:23 09/18/17 01:37 Saline Flush FLUSH 10 ml ASDIRECTED PRN Administration Keep Vein Open Discontinued Medications Generic Name Dose Route Start Last Admin Trade Name Freq PRN Reason Stop Dose Admin Diazepam 5 mg 09/18/17 05:33 09/18/17 05:41 Valium. PO 09/18/17 05:34 5 mg ONETIME ONE Administration Sodium Chloride 1,000 mls @ 999 mls/hr 09/18/17 03:39 09/18/17 03:48 Normal Saline IV 09/18/17 04:39 999 mls/hr .BOLUS ONE Administration Iopamidol 100 ml 09/18/17 01:33 09/18/17 01:38 Isovue-300 (61%) IVPUSH 09/18/17 01:34 100 ml ONETIME ONE Administration Morphine Sulfate 2 mg 09/18/17 01:23 09/18/17 01:32 Morphine IV 09/18/17 01:24 2 mg ONETIME ONE Administration Orphenadrine Citrate 60 mg 09/18/17 04:01 09/18/17 04:07 Norflex IM 09/18/17 04:02 60 mg ONETIME ONE Administration - Radiology Interpretation Free Text/Narrative:: Abdomen/Pelvis with contrast: IMPRESSION: No evidence of acute abdominopelvic pathology. Thank you for allowing us to participate in the care of your patient. Dictated and Authenticated by: Edward Glasgow MD 09/18/2017 3:12 AM Central Time ([place] & [place]) See Rad report Departure - Departure Time of Disposition: 05:39 Disposition: Home, Self-Care 01 Condition: Fair Clinical Impression: Flank pain Abdominal pain Qualifiers: Abdominal location: generalized Qualified Code(s): R10.84 - Generalized abdominal pain Leukopenia Qualifiers: Leukopenia type: neutropenia Neutropenia type: unspecified Qualified Code(s): D70.9 - Neutropenia, unspecified - Discharge Information Instructions: Abdominal Pain, Adult, [id number], Flank Pain, Adult, Easy-to- Read, Pain Without a Known Cause Forms: ED Department Discharge Additional Instructions: Drink plenty of water Follow up with your primary care facility - My Orders Last 24 Hours: My Active Orders 09/18/17 01:23 Peripheral IV Care [RC] . DIRECTED Sodium Chloride 0.9% [Saline Flush] 10 ml FLUSH ASDIRECTED PRN Peripheral IV Insertion Adult [OM.PC] Stat 09/18/17 04:54 DRUG SCREEN URINE BIORAD [URCHEM] Stat HCG QUALITATIVE,URINE [URCHEM] Stat UA W/MICROSCOPIC [URIN] Stat - Assessment/Plan Last 24 Hours: My Active Orders 09/18/17 01:23 Peripheral IV Care [RC] . DIRECTED Sodium Chloride 0.9% [Saline Flush] 10 ml FLUSH ASDIRECTED PRN Peripheral IV Insertion Adult [OM.PC] Stat 09/18/17 04:54 DRUG SCREEN URINE BIORAD [URCHEM] Stat HCG QUALITATIVE,URINE [URCHEM] Stat UA W/MICROSCOPIC [URIN] Stat
[2017-09-18] MEDS ORDERED: Diazepam 5 MG Tab PO ONE (05:33)
[2017-09-18 05:50] VITALS: BP 97/47
== END 2017-09-18 05:47 | disposition home or self-care (01) ==
LOC: DL.ED 00:59
DX: R10.31 Right lower quadrant pain (principal); R10.84 Generalized abdominal pain; D70.9 Neutropenia, unspecified; I10 Essential (primary) hypertension; M06.9 Rheumatoid arthritis, unspecified; Z88.8 Allergy status to other drugs, medicaments and biological substances; Z79.4 Long term (current) use of insulin
CPT/HCPCS: 36415; 74177; 80053; 80305; 81001; 81025; 85025; 96361; 96372; 96374; 99284; A9270; J2270; J2360; J7030; J7050; Q9967

== ENCOUNTER 2017-11-05 17:43 | Inpatient (IN) | payer MEDICARE, MEDICAID ==
[2017-11-05] MEDS ORDERED: Albuterol/Ipratropium 3.0-0.5 MG/3 ML Neb Soln NEB ONE (18:50)
[2017-11-05] MEDS ORDERED: methylPREDNISolone Sodium Succinate 125 MG/2 ML SDV IVPUSH ONE (18:50)
[2017-11-05] MEDS ORDERED: Codeine/Promethazine 10-6.25 MG/5 ML Syrup 5 ML UD Cup PO ONE (18:52)
--- NOTE | 2017-11-05 18:53 | EDM.PDOC ---
ED HPI GENERAL MEDICAL PROBLEM - General Chief Complaint: Respiratory Problem Stated Complaint: COLD [id number] Time Seen by Provider: 11/05/17 18:51 Source of Information: Reports: Patient History Limitations: Reports: No Limitations - History of Present Illness INITIAL COMMENTS - FREE TEXT/NARRATIVE: been coughing past week not seen anyone & not getting any better. denies asthma/ COPD Upper Chest Pain Score (Numeric/FACES): 7 - Related Data Allergies Allergy/AdvReac Type Severity Reaction Status Date / Time daptomycin Allergy Rash Verified 10/08/17 01:26 rituximab [From Rituxan] Allergy Difficulty Verified 10/08/17 01:26 Breathing Home Meds: Home Meds Ascorbic Acid [Vitamin C] 250 mg PO TID 03/08/14 [History] predniSONE 6 mg PO DAILY 03/08/14 [History] Ferrous Sulfate [Iron] 325 mg PO TID 09/13/14 [History] Pantoprazole [Pantoprazole Sodium] 40 mg PO DAILY 09/13/14 [History] DULoxetine [Cymbalta] 60 mg PO DAILY 08/07/15 [History] Insulin Glarg,Human.Rec.Analog [LantUS Solostar] 35 units SQ BID 08/07/15 [ History] rOPINIRole [Requip] 1 mg PO BEDTIME 08/13/15 [History] Multivitamin [Multivitamins] 1 each PO DAILY 09/20/15 [History] oxyCODONE HCl/Acetaminophen [Endocet 10-325 mg Tablet] 1 each PO Q4H PRN [History] Lisinopril [Prinivil] 2.5 mg PO DAILY 04/14/16 [History] Oxybutynin [Oxybutynin ER] 5 mg PO BEDTIME 04/14/16 [History] Pregabalin [Lyrica] 150 mg PO BEDTIME 04/14/16 [History] cycloSPORINE [Restasis] 1 drop EYEBOTH DAILY 04/14/16 [History] Cholecalciferol (Vitamin D3) [Vitamin D3] 400 units PO DAILY 04/13/17 [History] metFORMIN [Glucophage] 500 mg PO BIDMEALS 05/03/17 [History] traZODone HCl [Trazodone HCl] 50 mg PO BEDTIME PRN 06/06/17 [History] Diclofenac Epolamine [Flector] 1 patch TOP .Q3DAY 06/16/17 [History] Past Medical History - Past Health History Medical/Surgical History: Denies Medical/Surgical History HEENT History: Reports: Cataract, Impaired Vision, Other (See Below) Other HEENT History: wears glasses Cardiovascular History: Reports: Hypertension, SOB on Exertion Respiratory History: Reports: Bronchitis, Recurrent, Sleep Apnea, SOB Gastrointestinal History: Reports: Gastritis, Other (See Below) Other Gastrointestinal History: chronic stomach pains. 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 OSTEOMELITIS OF RIGHT FOOT, healed 05/10/17 Neurological History: Reports: Other (See Below) Other Neuro History: SOMNOLENCE, DAYTIME, nerve damage to back and legs Psychiatric History: Reports: Anxiety, Eating Disorders Endocrine/Metabolic History: Reports: Diabetes, Type II, IDDM, Obesity/BMI 30+ Hematologic History: Reports: Iron Deficiency, Other (See Below) Other Hematologic History: HX OF SEPSIS. HX OF MRSA INFECTION Immunologic History: Reports: Immunosuppression, Other (See Below) Other Immunologic History: RA Oncologic (Cancer) History: Reports: None Dermatologic History: Reports: Cellulitis, Other (See Below) Other Dermatologic History: hx of mrsa. HX OF SKIN ULCERS OF FOOT, BILAT. DIABETIC SKIN ULCERS. CELLULITIS OF L ANTERIOR LOWER LEG. BIOPSY OF SKIN LESION - Infectious Disease History Infectious Disease History: Reports: MRSA Other Infectious Disease History: CELLULITIS - Past Surgical History Head Surgeries/Procedures: Reports: None HEENT Surgical History: Reports: Cataract Surgery Cardiovascular Surgical History: Reports: None Respiratory Surgical History: Reports: None GI Surgical History: Reports: None Female Surgical History: Reports: Other (See Below) Other Female Surgeries/Procedures: cyst on her left kidney Endocrine Surgical History: Reports: None Neurological Surgical History: Reports: None Musculoskeletal Surgical History: Reports: Amputation, Other (See Below) Other Musculoskeletal Surgeries/Procedures:: right toe ampulation Oncologic Surgical History: Reports: None Dermatological Surgical History: Reports: Other (See Below) Social & Family History - Family History Family Medical History: Noncontributory HEENT: Reports: None Cardiac: Reports: None Respiratory: Reports: None GI: Reports: None : Reports: None OBGYN: Reports: None Musculoskeletal: Reports: RA Neurological: Reports: None Psychiatric: Reports: Depression Endocrine/Metabolic: Reports: Diabetes, type II Hematologic: Reports: None Immunologic: Reports: None Dermatologic: Reports: None Oncologic: Reports: None - Tobacco Use Smoking Status *Q: Never Smoker - Caffeine Use Caffeine Use: Reports: Coffee, Soda, Tea Other Caffeine Use: 16oz daily Caffeine Use Comment: 3/day - Recreational Drug Use Recreational Drug Use: No - Living Situation & Occupation Living situation: Reports: with Family ED ROS GENERAL - Review of Systems Review Of Systems: ROS reveals no pertinent complaints other than HPI. ED EXAM, GENERAL - Physical Exam Exam: See Below Exam Limited By: No Limitations General Appearance: Alert, WD/WN, Mild Distress, Other (cough spasms) Ears: Hearing Grossly Normal Throat/Mouth: Normal Voice, No Airway Compromise Head: Atraumatic Neck: Non-Tender, Full Range of Motion Respiratory/Chest: No Accessory Muscle Use, Decreased Breath Sounds, Rhonchi, Wheezing Cardiovascular: Regular Rate, Rhythm GI/Abdominal: Soft, Non-Tender Neurological: Alert, Oriented, Normal Cognition, Normal Gait, No Motor/Sensory Deficits Psychiatric: Tearful Skin Exam: Warm, Dry, Normal Color Lymphatic: No Adenopathy Course - Vital Signs Last Recorded V/S: Last Vital Signs Temp 35.8 C 11/05/17 17:57 Pulse 101 H 11/05/17 17:57 Resp 20 11/05/17 17:57 BP 143/75 H 11/05/17 17:57 Pulse Ox 98 11/05/17 17:57 - Orders/Labs/Meds Orders: Active Orders 24 hr Category Date Time Status RT Aerosol Therapy [RC] ASDIRECTED Care 11/05/17 18:50 Active Chest 2V [CR] Urgent Exams 11/05/17 18:28 Taken Labs: Laboratory Tests 11/05/17 11/05/17 11/05/17 Range/Units 19:00 19:00 19:00 WBC 5.0 (5.0-10.0) 10^3/uL RBC 4.37 (4.2-5.4) 10^6/uL Hgb 11.7 L (12.0-16.0) g/dL Hct 38.6 (37.0-47.0) % MCV 88.3 D (80-100) fL MCH 26.8 L (27.0-34.0) pg MCHC 30.3 L (33.0-35.0) g/dL Plt Count 302 D (150-450) 10^3/uL Neut % (Auto) 58.5 (42.2-75.2) % Lymph % (Auto) 35.1 (20.5-50.1) % [place] % (Auto) 3.8 (2-8) % Eos % (Auto) 2.4 (1.0-3.0) % Baso % (Auto) 0.2 (0.0-1.0) % Sodium 139 (135-145) mmol/L Potassium 4.3 (3.6-5.0) mmol/L Chloride 105 (101-111) mmol/L Carbon Dioxide 26.0 (21.0-31.0) mmol/L Anion Gap 12.3 BUN 10 (7-18) mg/dL Creatinine 0.8 (0.6-1.3) mg/dL Est Cr Clr Drug Dosing 91.47 mL/min Estimated GFR (MDRD) > 60 BUN/Creatinine Ratio 12.50 Glucose 181 H (74-105) mg/dL Lactic Acid 2.3 H (0.5-2.2) mmol/L Calcium 8.9 (8.4-10.2) mg/dl Total Bilirubin 0.4 (0.2-1.0) mg/dL AST 23 (10-42) IU/L ALT 13 (10-60) IU/L Alkaline Phosphatase 59 (42-121) IU/L Total Protein 8.0 (6.7-8.2) g/dl Albumin 3.5 (3.2-5.5) g/dl Globulin 4.5 Albumin/Globulin Ratio 0.78 Meds: Medications Discontinued Medications Generic Name Dose Route Start Last Admin Trade Name Freq PRN Reason Stop Dose Admin Acetaminophen 325 mg 11/05/17 19:24 11/05/17 19:28 Tylenol PO 11/05/17 19:25 325 mg NOW ONE Administration Albuterol/Ipratropium 3 ml 11/05/17 18:50 11/05/17 19:14 Duoneb 3.0-0.5 Mg/3 Ml NEB 11/05/17 18:51 3 ml ONETIME ONE Administration Methylprednisolone Sodium Succinate 125 mg 11/05/17 18:50 11/05/17 19:13 Solu-Medrol IVPUSH 11/05/17 18:51 125 mg ONETIME ONE Administration Promethazine HCl/Codeine 5 ml 11/05/17 18:52 11/05/17 19:13 Phenergan With Codeine PO 11/05/17 18:53 5 ml ONETIME ONE Administration - Re-Assessments/Exams Free Text/Narrative Re-Assessment/Exam: 11/05/17 19:[address] Magaña who kindly admitted pt. Departure - Departure Time of Disposition: 19:45 Disposition: Admitted As Inpatient 65 Condition: Fair Clinical Impression: Bronchospasm, acute Pneumonia Qualifiers: Pneumonia type: due to unspecified organism Laterality: left Lung location: lower lobe of lung Qualified Code(s): J18.1 - Lobar pneumonia, unspecified organism - Discharge Information Forms: ED Department Discharge - My Orders Last 24 Hours: My Active Orders 11/05/17 18:50 RT Aerosol Therapy [RC] ASDIRECTED - Assessment/Plan Last 24 Hours: My Active Orders 11/05/17 18:50 RT Aerosol Therapy [RC] ASDIRECTED
[2017-11-05] MEDS ORDERED: Acetaminophen 325 MG Tab PO ONE (19:24)
[2017-11-05 19:31] LABS: ANION GAP 12.3; CHLORIDE,CL 105 mmol/L (101-111); SODIUM,NA 139 mmol/L (135-145)
[2017-11-05] MEDS ORDERED: Magnesium Hydroxide 400 MG/5 ML Susp 30 ML Cup PO PRN (20:33)
[2017-11-05] MEDS ORDERED: Acetaminophen 325 MG Tab PO PRN (20:33)
[2017-11-05] MEDS ORDERED: Ondansetron 4 MG/2 ML SDV IVPUSH PRN (20:33)
[2017-11-05] MEDS ORDERED: Docusate Sodium 100 MG Cap PO PRN (20:33)
[2017-11-05] MEDS ORDERED: Sodium Chloride 0.9% 1,000 ML IV SCH ×2 (20:45→21:00)
[2017-11-05] MEDS ORDERED: traZODone 50 MG Tab PO PRN (20:51)
[2017-11-05] MEDS ORDERED: Non-Formulary Medication 1 Each (Acetaminophen/Oxycodone 1 EACH) PO PRN (20:51)
[2017-11-05] MEDS ORDERED: Acetaminophen/oxyCODONE 325-5 MG Tab PO PRN (21:10)
[2017-11-05] MEDS ORDERED: oxyCODONE 5 MG Tab PO PRN (21:10)
--- NOTE | 2017-11-05 21:10 | PCM.HP ---
H&P History of Present Illness - General Date of Service: 11/05/17 Admit Problem/Dx: Admission Diagnosis/Problem Admission Diagnosis/Problem Pneumonia Source of Information: Patient History Limitations: Reports: No Limitations - History of Present Illness Initial Comments - Free Text/Narative: Patient is 42 y/o F with PMH of RA on enbrel, DM-II, HTN, h/o MRSA presented to [facility] ER with productive cough for one week. Cough has been getting progressively worse. Productive of yellowish sputum. No hemoptysis. Cough is associated chest pain, SOB, wheezing and general malaise. Cough is made worse when inhalse smokes. Says sister smokes heavily. She quit smoking many years ago. 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 She notes pleurisy. She denies ill contact, recent travel. Cough is persistent through the day. She denies fever, chills. Has no abdominal, nausea but vomited once today. She reports decrease appetite. In the ER CXR was suggestive of left lower pneumonia. Lactate was elevated. wbc wnl. She received nebs, IV abx. Onset of Symptoms: Reports: Gradual Duration of Symptoms: Reports: Day(s): Location: Reports: Chest Quality: Reports: Sharp Severity: Moderate Improves with: Reports: None Worsens with: Reports: None Context: Reports: Activity/Exercise Associated Symptoms: Reports: Chest Pain, Cough, cough w sputum, Shortness of Breath Upper Chest Pain Score (Numeric/FACES): 7 - Related Data Allergies/Adverse Reactions: Allergies Allergy/AdvReac Type Severity Reaction Status Date / Time daptomycin Allergy Rash Verified 10/08/17 01:26 rituximab [From Rituxan] Allergy Difficulty Verified 10/08/17 01:26 Breathing Home Medications: Home Meds Ascorbic Acid [Vitamin C] 250 mg PO TID 03/08/14 [History] predniSONE 7.5 mg PO DAILY 03/08/14 [History] Ferrous Sulfate [Iron] 325 mg PO TID 09/13/14 [History] Pantoprazole [Pantoprazole Sodium] 40 mg PO DAILY 09/13/14 [History] DULoxetine [Cymbalta] 60 mg PO DAILY 08/07/15 [History] rOPINIRole [Requip] 1 mg PO BEDTIME 08/13/15 [History] Multivitamin [Multivitamins] 1 each PO DAILY 09/20/15 [History] oxyCODONE HCl/Acetaminophen [Endocet 10-325 mg Tablet] 1 each PO Q4H PRN [History] Lisinopril [Prinivil] 2.5 mg PO DAILY 04/14/16 [History] Oxybutynin [Oxybutynin ER] 5 mg PO BEDTIME 04/14/16 [History] Pregabalin [Lyrica] 150 mg PO BEDTIME 04/14/16 [History] cycloSPORINE [Restasis] 1 drop EYEBOTH DAILY 04/14/16 [History] Cholecalciferol (Vitamin D3) [Vitamin D3] 400 units PO DAILY 04/13/17 [History] metFORMIN [Glucophage] 500 mg PO BIDMEALS 05/03/17 [History] traZODone HCl [Trazodone HCl] 50 mg PO BEDTIME PRN 06/06/17 [History] Diclofenac Epolamine [Flector] 1 patch TOP .Q306/16/17 [History] Past Medical History - Past Health History Medical/Surgical History: Denies Medical/Surgical History HEENT History: Reports: Cataract, Impaired Vision, Other (See Below) Other HEENT History: wears glasses Cardiovascular History: Reports: Hypertension, SOB on Exertion Respiratory History: Reports: Bronchitis, Recurrent, Sleep Apnea, SOB Gastrointestinal History: Reports: Gastritis, Other (See Below) Other Gastrointestinal History: chronic stomach pains. 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 OSTEOMELITIS OF RIGHT FOOT, healed 05/10/17 Neurological History: Reports: Other (See Below) Other Neuro History: SOMNOLENCE, DAYTIME, nerve damage to back and legs Psychiatric History: Reports: Anxiety, Eating Disorders Endocrine/Metabolic History: Reports: Diabetes, Type II, IDDM, Obesity/BMI 30+ Hematologic History: Reports: Iron Deficiency, Other (See Below) Other Hematologic History: HX OF SEPSIS. HX OF MRSA INFECTION Immunologic History: Reports: Immunosuppression, Other (See Below) Other Immunologic History: RA Oncologic (Cancer) History: Reports: None Dermatologic History: Reports: Cellulitis, Other (See Below) Other Dermatologic History: hx of mrsa. HX OF SKIN ULCERS OF FOOT, BILAT. DIABETIC SKIN ULCERS. CELLULITIS OF L ANTERIOR LOWER LEG. BIOPSY OF SKIN LESION - Infectious Disease History Infectious Disease History: Reports: MRSA Other Infectious Disease History: CELLULITIS - Past Surgical History Head Surgeries/Procedures: Reports: None HEENT Surgical History: Reports: Cataract Surgery Cardiovascular Surgical History: Reports: None Respiratory Surgical History: Reports: None GI Surgical History: Reports: None Female Surgical History: Reports: Other (See Below) Other Female Surgeries/Procedures: cyst on her left kidney Endocrine Surgical History: Reports: None Neurological Surgical History: Reports: None Musculoskeletal Surgical History: Reports: Amputation, Other (See Below) Other Musculoskeletal Surgeries/Procedures:: right toe ampulation Oncologic Surgical History: Reports: None Dermatological Surgical History: Reports: Other (See Below) Social & Family History - Family History Family Medical History: Noncontributory HEENT: Reports: None Cardiac: Reports: None Respiratory: Reports: None GI: Reports: None : Reports: None OBGYN: Reports: None Musculoskeletal: Reports: RA Neurological: Reports: None Psychiatric: Reports: Depression Endocrine/Metabolic: Reports: Diabetes, type II Hematologic: Reports: None Immunologic: Reports: None Dermatologic: Reports: None Oncologic: Reports: None - Tobacco Use Smoking Status *Q: Never Smoker - Caffeine Use Caffeine Use: Reports: Coffee, Soda, Tea Other Caffeine Use: 16oz daily Caffeine Use Comment: 3/day - Recreational Drug Use Recreational Drug Use: No - Living Situation & Occupation Living situation: Reports: with Family H&P Review of Systems - Review of Systems: Review Of Systems: See Below General: Reports: Malaise, Fatigue, Decreased Appetite HEENT: Reports: No Symptoms Pulmonary: Reports: Shortness of Breath, Wheezing, Pleuritic Chest Pain, Cough, Sputum Cardiovascular: Reports: No Symptoms Gastrointestinal: Reports: No Symptoms Genitourinary: Reports: No Symptoms Musculoskeletal: Reports: Other (general malaise) Skin: Reports: No Symptoms Psychiatric: Reports: No Symptoms Neurological: Reports: No Symptoms Hematologic/Lymphatic: Reports: No Symptoms, Anemia Immunologic: Reports: No Symptoms Exam - Exam Exam: See Below - Vital Signs Vital Signs: Last Vital Signs Temp 97.3 F 11/05/17 20:33 Pulse 97 11/05/17 20:33 Resp 20 11/05/17 20:33 BP 99/69 11/05/17 20:33 Pulse Ox 98 11/05/17 20:37 Weight: 240 lb - Exam Quality Assessment: Supplemental Oxygen, DVT Prophylaxis General: Alert, Oriented, Cooperative, Mild Distress HEENT: PERRLA, Hearing Intact, Mucosa Moist & [place], Nares Patent, Normal Nasal Septum, Posterior Pharynx Clear, Conjunctiva Clear, EOMI, EACs Clear, TMs Clear Neck: Supple, Trachea Midline, 2 Lungs: Decreased Breath Sounds, Rales, Rhonchi, Wheezing Cardiovascular: Regular Rate, Regular Rhythm GI/Abdominal Exam: Normal Bowel Sounds, Soft, Non-Tender, No Organomegaly, No Distention, No Abnormal Bruit, No Mass, Pelvis Stable (Female) Exam: Normal External Exam, Normal Speculum Exam, Normal Bimanual Exam Rectal (Female) Exam: Deferred Back Exam: Normal Inspection, Full Range of Motion, NT Extremities: Normal Range of Motion, Non-Tender, No Pedal Edema (deformed b/l fingers), Normal Capillary Refill Skin: Warm, Dry, Intact Neurological: Cranial Nerves Intact, Reflexes Equal Bilateral Neuro Extensive - Mental Status: Alert, Oriented x3, Normal Mood/Affect, Normal Cognition Neuro Extensive - Motor, Sensory, Reflexes: CN II-XII Intact, Normal Gait, Normal Reflexes Psychiatric: Alert, Normal Affect, Normal Mood - Patient Data Lab Results Last 24 hrs: Laboratory Results - last 24 hr 11/05/17 11/05/17 11/05/17 Range/Units 19:00 19:00 19:00 WBC 5.0 (5.0-10.0) 10^3/uL RBC 4.37 (4.2-5.4) 10^6/uL Hgb 11.7 L (12.0-16.0) g/dL Hct 38.6 (37.0-47.0) % MCV 88.3 D (80-100) fL MCH 26.8 L (27.0-34.0) pg MCHC 30.3 L (33.0-35.0) g/dL Plt Count 302 D (150-450) 10^3/uL Neut % (Auto) 58.5 (42.2-75.2) % Lymph % (Auto) 35.1 (20.5-50.1) % [place]ke % (Auto) 3.8 (2-8) % Eos % (Auto) 2.4 (1.0-3.0) % Baso % (Auto) 0.2 (0.0-1.0) % Sodium 139 (135-145) mmol/L Potassium 4.3 (3.6-5.0) mmol/L Chloride 105 (101-111) mmol/L Carbon Dioxide 26.0 (21.0-31.0) mmol/L Anion Gap 12.3 BUN 10 (7-18) mg/dL Creatinine 0.8 (0.6-1.3) mg/dL Est Cr Clr Drug Dosing 91.47 mL/min Estimated GFR (MDRD) > 60 BUN/Creatinine Ratio 12.50 Glucose 181 H (74-105) mg/dL Lactic Acid 2.3 H (0.5-2.2) mmol/L Calcium 8.9 (8.4-10.2) mg/dl Total Bilirubin 0.4 (0.2-1.0) mg/dL AST 23 (10-42) IU/L ALT 13 (10-60) IU/L Alkaline Phosphatase 59 (42-121) IU/L Total Protein 8.0 (6.7-8.2) g/dl Albumin 3.5 (3.2-5.5) g/dl Globulin 4.5 Albumin/Globulin Ratio 0.78 Result Diagrams: 11/06/17 06:10 11/05/17 19:00 - Problem List (1) Pneumonia SNOMED Code(s): 571148022 ICD Code: J18.9 - PNEUMONIA, UNSPECIFIED ORGANISM Status: Acute Current Visit: Yes (2) Sepsis due to undetermined organism SNOMED Code(s): 01554420 ICD Code: A41.9 - SEPSIS, UNSPECIFIED ORGANISM Status: Acute Current Visit: Yes (3) Bronchitis SNOMED Code(s): 89278883 ICD Code: J40 - BRONCHITIS, NOT SPECIFIED ACUTE OR CHRONIC Status: Acute Current Visit: No (4) Pneumonia SNOMED Code(s): 765146881 ICD Code: J18.9 - PNEUMONIA, UNSPECIFIED ORGANISM Status: Acute Current Visit: No Qualifiers: Pneumonia type: due to unspecified organism Laterality: left Lung location: lower lobe of lung Qualified Code(s): J18.1 - Lobar pneumonia, unspecified organism (5) Diabetes SNOMED Code(s): 24060962 ICD Code: E11.9 - TYPE 2 DIABETES MELLITUS WITHOUT COMPLICATIONS Status: Acute Current Visit: Yes Problem List Initiated/Reviewed/Updated: Yes Orders Last 24hrs: Active Orders 24 hr Category Date Time Status Patient Status [ADT] Routine ADT 11/05/17 20:33 Ordered Ambulate [RC] ASDIRECTED Care 11/05/17 20:33 Ordered Blood Glucose Check, Bedside [RC] WITHMEALSANDBED Care 11/05/17 20:33 Ordered Flutter Valve Therapy [RT Chest Physiotherapy] [RC] Care 11/05/17 20:48 Ordered ASDIRECTED Incentive Breathing [RT Incentive Spirometry] [RC] Care 11/05/17 20:48 Ordered Q2HWA Notify Provider Vital Signs [RC] ASDIRECTED Care 11/05/17 20:37 Ordered Oxygen Therapy [RC] PRN Care 11/05/17 20:33 Ordered Pulse Oximetry [RC] PRN Care 11/05/17 20:37 Ordered RT Aerosol Therapy [RC] ASDIRECTED Care 11/05/17 18:50 Active RT Aerosol Therapy [RC] ASDIRECTED Care 11/05/17 20:43 Ordered VTE/DVT Education [RC] PER UNIT ROUTINE Care 11/05/17 20:33 Ordered Vital Signs [RC] Q4H Care 11/05/17 20:33 Ordered Respiratory Care Assess and Treatment [CONS] Routine Cons 11/05/17 20:33 Ordered Consistent Carbohydrate Diet [DIET] Diet 11/05/17 Breakfast Ordered Chest 2V [CR] Urgent Exams 11/05/17 18:28 Taken CBC WITH AUTO DIFF [HEME] DAILY Lab 11/06/17 05:00 Ordered CBC WITH AUTO DIFF [HEME] DAILY Lab 11/07/17 05:00 Ordered CULTURE BLOOD [BC] Stat Lab 11/05/17 20:46 Ordered CULTURE BLOOD [BC] Stat Lab 11/05/17 20:46 Ordered GRAM STAIN [RM] Stat Lab 11/05/17 20:33 Ordered MAGNESIUM [CHEM] Routine Lab 11/05/17 20:33 Ordered PHOSPHORUS [CHEM] Routine Lab 11/05/17 20:33 Ordered RESPIRATORY PANEL Routine Lab 11/05/17 20:48 Ordered Acetaminophen [Tylenol] Med 11/05/17 20:33 Ordered 650 mg PO Q4H PRN Acetaminophen/oxyCODONE Med 11/05/17 20:51 Ordered 1 each PO Q4H PRN Albuterol/Ipratropium [DuoNeb 3.0-0.5 MG/3 ML] Med 11/05/17 20:45 Ordered 3 ml NEB Q4H Ascorbic Acid [Vitamin C] Med 11/05/17 21:00 Ordered 250 mg PO TID Cholecalciferol (Vitamin D3) [Vitamin D3] Med 11/06/17 09:00 Ordered 400 units PO DAILY DULoxetine [Cymbalta] Med 11/06/17 09:00 Ordered 60 mg PO DAILY Diclofenac Epolamine [Flector] Med 11/05/17 21:00 Ordered 1 patch TOP .Q3DAY Docusate Sodium [Colace] Med 11/05/17 20:33 Ordered 100 mg PO BID PRN Ferrous Sulfate Med 11/05/17 21:00 Ordered 325 mg PO TID Heparin Sodium Med 11/05/17 20:45 Ordered 5,000 units SUBCUT Q12H Lisinopril [Prinivil] Med 11/05/17 21:00 Ordered 2.5 mg PO DAILY Magnesium Hydroxide [Milk of Magnesia] Med 11/05/17 20:33 Ordered 30 ml PO Q12H PRN Multivitamin [Multivitamins] Med 11/06/17 09:00 Ordered 1 each PO DAILY Ondansetron [Zofran] Med 11/05/17 20:33 Ordered 4 mg IVPUSH Q8H PRN Oxybutynin [Oxybutynin ER] Med 11/05/17 21:00 Ordered 5 mg PO BEDTIME Pantoprazole [Pantoprazole Sodium] Med 11/06/17 09:00 Ordered 40 mg PO DAILY Piperacillin/Tazobactam [Zosyn] 4.5 gm Med 11/05/17 21:00 Ordered Sodium Chloride 0.9% [Normal Saline] 50 ml IV Q6H Pregabalin [Lyrica] Med 11/05/17 21:00 Ordered 150 mg PO BEDTIME Sodium Chloride 0.9% @ 125 MLS/HR (1000ml) Med 11/05/17 20:45 Ordered Sodium Chloride 0.9% [Normal Saline] 1,000 ml IV ASDIRECTED Sodium Chloride 0.9% [Normal Saline] 1,000 ml Med 11/05/17 21:00 Ordered IV ASDIRECTED Vancomycin Pharmacy to Dose [Pharmacy to Dose - Med 11/05/17 21:00 Ordered Vancomycin] 1 dose .XX ASDIRECTED cycloSPORINE [Restasis] Med 11/06/17 09:00 Ordered 1 drop EYEBOTH DAILY metFORMIN [Glucophage] Med 11/06/17 08:00 Ordered 500 mg PO BIDMEALS predniSONE Med 11/06/17 09:00 Ordered 7.5 mg PO DAILY rOPINIRole [Requip] Med 11/05/17 21:00 Ordered 1 mg PO BEDTIME traZODone Med 11/05/17 20:51 Ordered 50 mg PO BEDTIME PRN Blood Culture x2 Reflex Set [OM.PC] Stat Oth 11/05/17 20:33 Ordered Resuscitation Status Routine Resus Stat 11/05/17 20:33 Ordered Medication Orders Acetaminophen (Tylenol) 650 mg PO Q4H PRN PRN Reason: Pain (Mild 1-3)/fever Albuterol/Ipratropium (Duoneb 3.0-0.5 Mg/3 Ml) 3 ml NEB Q4HRRT [facility] Cholecalciferol (Vitamin D3) 400 units PO DAILY NELLY Cyclosporine (Restasis) each EYEBOTH DAILY [facility] Docusate Sodium (Colace) 100 mg PO BID PRN PRN Reason: Constipation Ferrous Sulfate (Ferrous Sulfate) 325 mg PO TID [facility] Heparin Sodium (Porcine) (Heparin Sodium) 5,000 units SUBCUT Q12H NELLY Piperacillin Sod/Tazobactam (Sod 4.5 gm/ Sodium Chloride) 50 mls @ 100 mls/hr IV Q6H NELLY Sodium Chloride (Normal Saline) 1,000 mls @ 125 mls/hr IV ASDIRECTED NELLY Sodium Chloride (Normal Saline) 1,000 mls @ 999 mls/hr IV ASDIRECTED NELLY Magnesium Hydroxide (Milk Of Magnesia) 30 ml PO Q12H PRN PRN Reason: Constipation Metformin HCl (Glucophage) 500 mg PO BIDMEALS [facility] Non-Formulary Medication (Acetaminophen/Oxycodone) 1 each PO Q4H PRN PRN Reason: Pain Non-Formulary Medication (Ascorbic Acid [Vitamin C]) 250 mg PO TID [facility] Non-Formulary Medication (Diclofenac Epolamine [Flector]) 1 patch TOP .Q3DAY NELLY Non-Formulary Medication (Duloxetine [Cymbalta]) 60 mg PO DAILY NELLY Non-Formulary Medication (Lisinopril [Prinivil]) 2.5 mg PO DAILY NELLY Non-Formulary Medication (Multivitamin [Multivitamins]) 1 each PO DAILY NELLY Non-Formulary Medication (Pantoprazole [Pantoprazole Sodium]) 40 mg PO DAILY NELLY Non-Formulary Medication (Ropinirole [Requip]) 1 mg PO BEDTIME NELLY Ondansetron HCl (Zofran) 4 mg IVPUSH Q8H PRN PRN Reason: Nausea/Vomiting Oxybutynin Chloride (Oxybutynin Er) 5 mg PO BEDTIME NELLY Prednisone (Prednisone) 7.5 mg PO DAILY NELLY Pregabalin (Lyrica) 150 mg PO BEDTIME NELLY Trazodone HCl (Trazodone) 50 mg PO BEDTIME PRN PRN Reason: Insomnia Vancomycin HCl (Pharmacy To Dose - Vancomycin) 1 dose .XX ASDIRECTED [facility] Assessment/Plan Comment:: Left lower Lobe pneumonia -patient present to the ER with worsening cough productive of yellowish sputum -CXR suggestive of LLL pneumonia -Will admit patient -Sputum for gram stain and cx, blood cx -IV vanco and Zosyn -supplemental oxygen prn Acute Bronchitis -patient with wheeze and rhonchi on exam -Duo-nebs q4h -Methylprednysolone 40 mg q8h -Flutter valve and incentive spirometry Likely Sepsis -She ahs source of infection, elevated lactate in the setting of immunosuppresion -IVF -Lactae q4h x 2 -olow cx as above Immunosuppressed from embrel and prednisone -standard infection precautions. RA -on embrel and prednisone DM-II -continue metformin -POC glucose 4x daily -sliding scale for better glycemic control HTN -on Lisinopril -monitor BP closley Obesity -advised on portion reduction
[2017-11-05] MEDS: Piperacillin/Tazobactam 4.5 GM in Sodium Chloride 0.9% 50 ML IV SCH (21:41)
[2017-11-05] MEDS: Albuterol/Ipratropium 3.0-0.5 MG/3 ML Neb Soln NEB SCH ×2 (21:42→22:12)
[2017-11-05] MEDS: Pregabalin 75 MG Cap PO SCH (21:42)
[2017-11-05] MEDS: Ascorbic Acid 500 MG Tab PO SCH (21:42)
[2017-11-05] MEDS: Heparin Sodium 5,000 Units/ML Vial SUBCUT SCH (21:42)
[2017-11-05] MEDS: Lisinopril 5 MG Tab PO SCH (21:43)
[2017-11-05] MEDS: Oxybutynin 5 MG Tab.ER PO SCH (21:43)
[2017-11-05] MEDS: Ferrous Sulfate 325 MG Tab PO SCH (21:43)
[2017-11-05] MEDS: rOPINIRole 2 MG Tab PO SCH (21:43)
[2017-11-05] MEDS: Acetaminophen/oxyCODONE 325-5 MG Tab PO PRN (21:44)
[2017-11-05] MEDS: oxyCODONE 5 MG Tab PO PRN (21:46)
[2017-11-05] MEDS: Benzonatate 100 MG Cap PO PRN (22:36)
[2017-11-05] MEDS: guaiFENesin/Dextromethorphan 100-10 MG/5 ML Soln 5 ML Cup PO PRN (22:36)
[2017-11-06] MEDS: Albuterol/Ipratropium 3.0-0.5 MG/3 ML Neb Soln NEB SCH ×6 (02:53→22:39)
[2017-11-06] MEDS: Piperacillin/Tazobactam 4.5 GM in Sodium Chloride 0.9% 50 ML IV SCH ×2 (02:53→11:45)
[2017-11-06] MEDS: methylPREDNISolone Sodium Succinate 40 MG/1 ML SDV IVPUSH SCH ×3 (04:27→20:54)
[2017-11-06] MEDS: Pantoprazole 40 MG Tab.CR PO SCH (06:09)
[2017-11-06] MEDS: oxyCODONE 5 MG Tab PO PRN ×2 (07:56→16:40)
[2017-11-06] MEDS: Acetaminophen/oxyCODONE 325-5 MG Tab PO PRN ×3 (07:57→20:57)
[2017-11-06] MEDS ORDERED: predniSONE 5 MG Tab PO SCH (08:00)
[2017-11-06] MEDS ORDERED: metFORMIN 500 MG Tab PO SCH (08:00)
[2017-11-06] MEDS: Insulin Aspart 100 Units/ML 3 ML Pen SUBCUT SCH ×4 (08:24→21:02)
[2017-11-06] MEDS: Ascorbic Acid 500 MG Tab PO SCH ×3 (09:35→20:52)
[2017-11-06] MEDS: Cholecalciferol (Vitamin D3) 400 Unit Tab PO SCH (09:36)
[2017-11-06] MEDS: Lisinopril 5 MG Tab PO SCH (09:36)
[2017-11-06] MEDS: Heparin Sodium 5,000 Units/ML Vial SUBCUT SCH ×2 (09:37→20:54)
[2017-11-06] MEDS: cycloSPORINE Ophth Drops U/D Box of 30 EYEBOTH SCH (09:37)
[2017-11-06] MEDS: DULoxetine 30 MG Cap PO SCH (09:37)
[2017-11-06] MEDS: Ferrous Sulfate 325 MG Tab PO SCH ×3 (09:37→20:51)
[2017-11-06] MEDS: Multivitamins,Therapeutic Tab PO SCH (09:37)
[2017-11-06] MEDS: guaiFENesin/Dextromethorphan 100-10 MG/5 ML Soln 5 ML Cup PO PRN ×3 (09:46→20:55)
[2017-11-06] MEDS: Benzonatate 100 MG Cap PO PRN ×3 (09:46→22:38)
[2017-11-06] MEDS: Piperacillin/Tazobactam 4.5 GM in Sodium Chloride 0.9% 100 ML IV SCH ×2 (09:47→17:31)
[2017-11-06] MEDS ORDERED: Magnesium Sulfate/Water 2 GM in Premix Bag 1 BAG IV ONE (09:50)
[2017-11-06] MEDS: Insulin Detemir 100 Units/ML 3 ML Pen SUBCUT SCH ×2 (11:05→21:01)
--- NOTE | 2017-11-06 11:18 | PCM.PN ---
- General Info Date of Service: 11/06/17 Admission Dx/Problem (Free Text): Admission Diagnosis/Problem Admission Diagnosis/Problem Pneumonia Subjective Update: Patient is 42 y/o F with PMH of RA on enbrel, DM-II, HTN, h/o MRSA presented to [facility] ER with productive cough for one week. She was found to have left lower lobe pneumonia and started on IV abx. Seen today and doing well. She reports feeling much better than she came in. She has no new complaints. Denies fever, chills, SOB. Functional Status: Reports: Pain Controlled - Review of Systems General: Reports: No Symptoms HEENT: Reports: No Symptoms Pulmonary: Reports: No Symptoms Cardiovascular: Reports: No Symptoms Gastrointestinal: Reports: No Symptoms Genitourinary: Reports: No Symptoms Musculoskeletal: Reports: No Symptoms Skin: Reports: No Symptoms Neurological: Reports: No Symptoms Psychiatric: Reports: No Symptoms - Patient Data Vitals - Most Recent: Last Vital Signs Temp 97.6 F 11/06/17 11:00 Pulse 78 11/06/17 11:08 Resp 20 11/06/17 11:00 BP 98/57 L 11/06/17 11:00 Pulse Ox 96 11/06/17 11:08 Weight - Most Recent: 240 lb I&O - Last 24 Hours: Intake & Output 11/05/17 11/06/17 11/06/17 22:59 06:59 14:59 Intake Total 100 1650 696 Output Total 400 Balance 100 1250 696 Lab Results Last 24 Hours: Laboratory Results - last 24 hr 11/05/17 11/05/17 11/05/17 Range/Units 19:00 19:00 19:00 WBC 5.0 (5.0-10.0) 10^3/uL RBC 4.37 (4.2-5.4) 10^6/uL Hgb 11.7 L (12.0-16.0) g/dL Hct 38.6 (37.0-47.0) % MCV 88.3 D (80-100) fL MCH 26.8 L (27.0-34.0) pg MCHC 30.3 L (33.0-35.0) g/dL Plt Count 302 D (150-450) 10^3/uL Neut % (Auto) 58.5 (42.2-75.2) % Lymph % (Auto) 35.1 (20.5-50.1) % [place] % (Auto) 3.8 (2-8) % Eos % (Auto) 2.4 (1.0-3.0) % Baso % (Auto) 0.2 (0.0-1.0) % Sodium 139 (135-145) mmol/L Potassium 4.3 (3.6-5.0) mmol/L Chloride 105 (101-111) mmol/L Carbon Dioxide 26.0 (21.0-31.0) mmol/L Anion Gap 12.3 BUN 10 (7-18) mg/dL Creatinine 0.8 (0.6-1.3) mg/dL Est Cr Clr Drug Dosing 91.47 mL/min Estimated GFR (MDRD) > 60 BUN/Creatinine Ratio 12.50 Glucose 181 H (74-105) mg/dL POC Glucose (70-105) mg/dl Lactic Acid 2.3 H (0.5-2.2) mmol/L Calcium 8.9 (8.4-10.2) mg/dl Phosphorus (2.5-4.6) mg/dL Magnesium (1.8-2.5) mg/dL Total Bilirubin 0.4 (0.2-1.0) mg/dL AST 23 (10-42) IU/L ALT 13 (10-60) IU/L Alkaline Phosphatase 59 (42-121) IU/L Total Protein 8.0 (6.7-8.2) g/dl Albumin 3.5 (3.2-5.5) g/dl Globulin 4.5 Albumin/Globulin Ratio 0.78 11/05/17 11/05/17 11/06/17 Range/Units 21:05 23:23 06:10 WBC 4.4 L (5.0-10.0) 10^3/uL RBC 3.80 L (4.2-5.4) 10^6/uL Hgb 10.2 L D (12.0-16.0) g/dL Hct 33.3 L (37.0-47.0) % MCV 87.6 (80-100) fL MCH 26.8 L (27.0-34.0) pg MCHC 30.6 L (33.0-35.0) g/dL Plt Count 278 (150-450) 10^3/uL Neut % (Auto) 80.7 H (42.2-75.2) % Lymph % (Auto) 18.6 L (20.5-50.1) % [place] % (Auto) 0.7 L (2-8) % Eos % (Auto) 0.0 L (1.0-3.0) % Baso % (Auto) 0.0 (0.0-1.0) % Sodium (135-145) mmol/L Potassium (3.6-5.0) mmol/L Chloride (101-111) mmol/L Carbon Dioxide (21.0-31.0) mmol/L Anion Gap BUN (7-18) mg/dL Creatinine (0.6-1.3) mg/dL Est Cr Clr Drug Dosing mL/min Estimated GFR (MDRD) BUN/Creatinine Ratio Glucose (74-105) mg/dL POC Glucose (70-105) mg/dl Lactic Acid 1.4 (0.5-2.2) mmol/L Calcium (8.4-10.2) mg/dl Phosphorus 3.2 (2.5-4.6) mg/dL Magnesium 1.3 L (1.8-2.5) mg/dL Total Bilirubin (0.2-1.0) mg/dL AST (10-42) IU/L ALT (10-60) IU/L Alkaline Phosphatase (42-121) IU/L Total Protein (6.7-8.2) g/dl Albumin (3.2-5.5) g/dl Globulin Albumin/Globulin Ratio 11/06/17 11/06/17 Range/Units 07:51 10:51 WBC (5.0-10.0) 10^3/uL RBC (4.2-5.4) 10^6/uL Hgb (12.0-16.0) g/dL Hct (37.0-47.0) % MCV (80-100) fL MCH (27.0-34.0) pg MCHC (33.0-35.0) g/dL Plt Count (150-450) 10^3/uL Neut % (Auto) (42.2-75.2) % Lymph % (Auto) (20.5-50.1) % [place] % (Auto) (2-8) % Eos % (Auto) (1.0-3.0) % Baso % (Auto) (0.0-1.0) % Sodium (135-145) mmol/L Potassium (3.6-5.0) mmol/L Chloride (101-111) mmol/L Carbon Dioxide (21.0-31.0) mmol/L Anion Gap BUN (7-18) mg/dL Creatinine (0.6-1.3) mg/dL Est Cr Clr Drug Dosing mL/min Estimated GFR (MDRD) BUN/Creatinine Ratio Glucose (74-105) mg/dL POC Glucose 287 H 346 H (70-105) mg/dl Lactic Acid (0.5-2.2) mmol/L Calcium (8.4-10.2) mg/dl Phosphorus (2.5-4.6) mg/dL Magnesium (1.8-2.5) mg/dL Total Bilirubin (0.2-1.0) mg/dL AST (10-42) IU/L ALT (10-60) IU/L Alkaline Phosphatase (42-121) IU/L Total Protein (6.7-8.2) g/dl Albumin (3.2-5.5) g/dl Globulin Albumin/Globulin Ratio Qasim Results Last 24 Hours: Microbiology 11/06/17 09:50 Gram Stain - Final Sputum - Expectorated 11/05/17 21:07 Anaerobic Blood Culture - Final Blood - Venous - Lab Draw Med Orders - Current: Current Medications Acetaminophen (Tylenol) 650 mg PO Q4H PRN PRN Reason: Pain (Mild 1-3)/fever Albuterol/Ipratropium (Duoneb 3.0-0.5 Mg/3 Ml) 3 ml NEB Q4HRRT [facility] Last Admin: 11/06/17 11:07 Dose: 3 ml Ascorbic Acid (Vitamin C) 250 mg PO TID [facility] Last Admin: 11/06/17 09:35 Dose: 250 mg Benzonatate (Tessalon Perles) 100 mg PO QID PRN PRN Reason: Cough Last Admin: 11/06/17 09:46 Dose: 100 mg Cholecalciferol (Vitamin D3) 400 units PO DAILY [facility] Last Admin: 11/06/17 09:36 Dose: 400 units Cyclosporine (Restasis) 0 each EYEBOTH DAILY [facility] Last Admin: 11/06/17 09:37 Dose: 1 drop Docusate Sodium (Colace) 100 mg PO BID PRN PRN Reason: Constipation Duloxetine HCl (Cymbalta) 60 mg PO DAILY [facility] Last Admin: 11/06/17 09:37 Dose: 60 mg Ferrous Sulfate (Ferrous Sulfate) 325 mg PO TID [facility] Last Admin: 11/06/17 09:37 Dose: 325 mg Guaifenesin/Phenylephrine HCl (Robitussin Dm) 5 ml PO Q4H PRN PRN Reason: Cough Last Admin: 11/06/17 09:46 Dose: 5 ml Heparin Sodium (Porcine) (Heparin Sodium) 5,000 units SUBCUT Q12H [facility] Last Admin: 11/06/17 09:37 Dose: 5,000 units Sodium Chloride (Normal Saline) 1,000 mls @ 125 mls/hr IV ASDIRECTED [facility] Piperacillin Sod/Tazobactam (Sod 4.5 gm/ Sodium Chloride) 100 mls @ 200 mls/hr IV Q6HR [facility] Last Admin: 11/06/17 09:47 Dose: 200 mls/hr Magnesium Sulfate 2 gm/ Premix 50 mls @ 25 mls/hr IV ONETIME ONE Stop: 11/06/17 11:49 Last Admin: 11/06/17 11:03 Dose: 25 mls/hr Insulin Aspart (Novolog) 0 unit SUBCUT QIDACANDBED [facility]; Protocol Last Admin: 11/06/17 08:24 Dose: 3 units Insulin Detemir (Levemir) 10 unit SUBCUT BID [facility] Last Admin: 11/06/17 11:05 Dose: 10 units Lisinopril (Prinivil) 2.5 mg PO DAILY [facility] Last Admin: 11/06/17 09:36 Dose: 2.5 mg Magnesium Hydroxide (Milk Of Magnesia) 30 ml PO Q12H PRN PRN Reason: Constipation Methylprednisolone Sodium Succinate (Solu-Medrol) 40 mg IVPUSH Q8H [facility] Last Admin: 11/06/17 04:27 Dose: 40 mg Multivitamins (Thera) 1 each PO DAILY [facility] Last Admin: 11/06/17 09:37 Dose: 1 each Non-Formulary Medication (Diclofenac Epolamine [Flector]) 1 patch TOP .Q3DAY [facility] Ondansetron HCl (Zofran) 4 mg IVPUSH Q8H PRN PRN Reason: Nausea/Vomiting Oxybutynin Chloride (Oxybutynin Er) 5 mg PO BEDTIME [facility] Last Admin: 11/05/17 21:43 Dose: 5 mg Oxycodone HCl (Oxycodone) 5 mg PO Q4H PRN PRN Reason: PAIN Last Admin: 11/06/17 07:56 Dose: 5 mg Oxycodone/Acetaminophen (Percocet 325-5 Mg) 1 tab PO Q4H PRN PRN Reason: PAIN Last Admin: 11/06/17 07:57 Dose: 1 tab Pantoprazole Sodium (Protonix) 40 mg PO ACBRK [facility] Last Admin: 11/06/17 06:09 Dose: 40 mg Pregabalin (Lyrica) 150 mg PO BEDTIME [facility] Last Admin: 11/05/17 21:42 Dose: 150 mg Ropinirole HCl (Requip) 1 mg PO BEDTIME [facility] Last Admin: 11/05/17 21:43 Dose: 1 mg Trazodone HCl (Trazodone) 50 mg PO BEDTIME PRN PRN Reason: Insomnia Vancomycin HCl (Pharmacy To Dose - Vancomycin) 1 dose .XX ASDIRECTED [facility] Discontinued Medications Acetaminophen (Tylenol) 325 mg PO NOW ONE Stop: 11/05/17 19:25 Last Admin: 11/05/17 19:28 Dose: 325 mg Albuterol/Ipratropium (Duoneb 3.0-0.5 Mg/3 Ml) 3 ml NEB ONETIME ONE Stop: 11/05/17 18:51 Last Admin: 11/05/17 19:14 Dose: 3 ml Piperacillin Sod/Tazobactam (Sod 4.5 gm/ Sodium Chloride) 50 mls @ 100 mls/hr IV Q6H [facility] Last Admin: 11/06/17 02:53 Dose: 100 mls/hr Sodium Chloride (Normal Saline) 1,000 mls @ 125 mls/hr IV ASDIRECTED [facility] Last Admin: 11/06/17 02:05 Dose: 125 mls/hr Sodium Chloride (Normal Saline) 1,000 mls @ 999 mls/hr IV ASDIRECTED [facility] Last Admin: 11/05/17 21:41 Dose: 999 mls/hr Vancomycin HCl 1.25 gm/ Sodium (Chloride) 250 mls @ 166.667 mls/hr IV Q8H [facility] Last Admin: 11/06/17 06:09 Dose: 166.667 mls/hr Metformin HCl (Glucophage) 500 mg PO BIDMEALS [facility] Methylprednisolone Sodium Succinate (Solu-Medrol) 125 mg IVPUSH ONETIME ONE Stop: 11/05/17 18:51 Last Admin: 11/05/17 19:13 Dose: 125 mg Prednisone (Prednisone) 7.5 mg PO WITHBREAKFAST [facility] Promethazine HCl/Codeine (Phenergan With Codeine) 5 ml PO ONETIME ONE Stop: 11/05/17 18:53 Last Admin: 11/05/17 19:13 Dose: 5 ml - Exam Quality Assessment: DVT Prophylaxis General: Alert, Oriented HEENT: Pupils Equal, Pupils Reactive, EOMI, Mucous Membr. Moist/[place] Neck: Supple Lungs: Clear to Auscultation, Normal Respiratory Effort Cardiovascular: Regular Rate, Regular Rhythm GI/Abdominal Exam: Normal Bowel Sounds, Soft, Non-Tender, No Organomegaly, No Distention, No Abnormal Bruit, No Mass, Pelvis Stable (Female) Exam: Normal External Exam, Normal Speculum Exam, Normal Bimanual Exam Back Exam: Normal Inspection, Full Range of Motion Extremities: Normal Inspection, Normal Range of Motion, Non-Tender, No Pedal Edema, Normal Capillary Refill Skin: Warm, Dry, Intact Wound/Incisions: Healing Well Neurological: No New Focal Deficit Psy/Mental Status: Alert, Normal Affect, Normal Mood - Problem List & Annotations (1) Pneumonia SNOMED Code(s): 211807679 Code(s): J18.9 - PNEUMONIA, UNSPECIFIED ORGANISM Status: Acute Current Visit: Yes (2) Sepsis due to undetermined organism SNOMED Code(s): 54833841 Code(s): A41.9 - SEPSIS, UNSPECIFIED ORGANISM Status: Acute Current Visit : Yes (3) Bronchitis SNOMED Code(s): 54991199 Code(s): J40 - BRONCHITIS, NOT SPECIFIED ACUTE OR CHRONIC Status: Acute Current Visit: No (4) Pneumonia SNOMED Code(s): 070940042 Code(s): J18.9 - PNEUMONIA, UNSPECIFIED ORGANISM Status: Acute Current Visit: No Qualifiers: Pneumonia type: due to unspecified organism Laterality: left Lung location: lower lobe of lung Qualified Code(s): J18.1 - Lobar pneumonia, unspecified organism (5) Diabetes SNOMED Code(s): 09819622 Code(s): E11.9 - TYPE 2 DIABETES MELLITUS WITHOUT COMPLICATIONS Status: Acute Current Visit: Yes - Problem List Review Problem List Initiated/Reviewed/Updated: Yes - My Orders Last 24 Hours: My Active Orders 11/05/17 20:33 Patient Status [ADT] Routine Ambulate [RC] ASDIRECTED Blood Glucose Check, Bedside [RC] WITHMEALSANDBED Oxygen Therapy [RC] PRN VTE/DVT Education [RC] PER UNIT ROUTINE Vital Signs [RC] 00,04,08,12,16,20 Respiratory Care Assess and Treatment [CONS] Routine CULTURE SPUTUM + SMEAR [RM] Stat Acetaminophen [Tylenol] 650 mg PO Q4H PRN Docusate Sodium [Colace] 100 mg PO BID PRN Magnesium Hydroxide [Milk of Magnesia] 30 ml PO Q12H PRN Ondansetron [Zofran] 4 mg IVPUSH Q8H PRN Blood Culture x2 Reflex Set [OM.PC] Stat Resuscitation Status Routine 11/05/17 20:37 Notify Provider Vital Signs [RC] ASDIRECTED Pulse Oximetry [RC] PRN 11/05/17 20:43 RT Aerosol Therapy [RC] ASDIRECTED 11/05/17 20:45 Albuterol/Ipratropium [DuoNeb 3.0-0.5 MG/3 ML] 3 ml NEB Q4HRRT 11/05/17 20:48 Flutter Valve Therapy [RT Chest Physiotherapy] [RC] ASDIRECTED Incentive Breathing [RT Incentive Spirometry] [RC] Q2HWA 11/05/17 20:51 traZODone 50 mg PO BEDTIME PRN 11/05/17 21:00 Diclofenac Epolamine [Flector] 1 patch TOP .Q3DAY Ferrous Sulfate 325 mg PO TID Heparin Sodium 5,000 units SUBCUT Q12H Lisinopril [Prinivil] 2.5 mg PO DAILY Oxybutynin [Oxybutynin ER] 5 mg PO BEDTIME Pregabalin [Lyrica] 150 mg PO BEDTIME Vancomycin Pharmacy to Dose [Pharmacy to Dose - Vancomycin] 1 dose .XX ASDIRECTED rOPINIRole [Requip] 1 mg PO BEDTIME 11/05/17 21:05 CULTURE BLOOD [BC] Stat Acetaminophen/oxyCODONE [Percocet 325-5 MG] 1 tab PO Q4H PRN oxyCODONE 5 mg PO Q4H PRN 11/05/17 21:07 CULTURE BLOOD [BC] Stat 11/05/17 21:15 Ascorbic Acid [Vitamin C] 250 mg PO TID 11/05/17 21:36 Benzonatate [Tessalon Perles] 100 mg PO QID PRN Dextromethorphan/guaiFENesin [Robitussin DM] 5 ml PO Q4H PRN 11/06/17 02:15 Sodium Chloride 0.9% [Normal Saline] 1,000 ml IV ASDIRECTED 11/06/17 04:00 methylPREDNISolone Sod Succ [Solu-MEDROL] 40 mg IVPUSH Q8H 11/06/17 06:00 Pantoprazole [ProTONIX] 40 mg PO ACBRK 11/06/17 07:00 Insulin Aspart [NovoLOG] See Protocol SUBCUT QIDACANDBED 11/06/17 09:00 Cholecalciferol (Vitamin D3) [Vitamin D3] 400 units PO DAILY DULoxetine [Cymbalta] 60 mg PO DAILY Multivitamins,Therapeutic [Thera] 1 each PO DAILY cycloSPORINE [Restasis] 0 each EYEBOTH DAILY 11/06/17 09:45 Piperacillin/Tazobactam [Zosyn] 4.5 gm Sodium Chloride 0.9% [Normal Saline] 100 ml IV Q6HR 11/06/17 09:50 Magnesium Sulfate/Water [Magnesium Sulfate 2 GM in Water 50 ML] 2 gm Premix Bag 1 bag IV ONETIME 11/06/17 10:00 Insulin Detemir [Levemir] 10 unit SUBCUT BID 11/06/17 13:30 VANCOMYCIN TROUGH [CHEM] Timed 11/07/17 05:00 CBC WITH AUTO DIFF [HEME] DAILY - Plan Plan:: Left lower Lobe pneumonia -patient present to the ER with worsening cough productive of yellowish sputum -CXR suggestive of LLL pneumonia -Cotinue IV Zosyn. D/d IV vanco -follow Sputum for gram stain and cx, blood cx -supplemental oxygen prn Acute Bronchitis -patient with wheeze and rhonchi on exam -Duo-nebs q4h -Methylprednysolone 40 mg q8h -Flutter valve and incentive spirometry Likely Sepsis -Resolved Immunosuppressed from embrel and prednisone -standard infection precautions. RA -on embrel and prednisone DM-II -continue metformin -POC glucose 4x daily -sliding scale for better glycemic control HTN -on Lisinopril -monitor BP closley Obesity -advised on portion reduction
[2017-11-06] MEDS: Sodium Chloride 0.9% 1,000 ML IV SCH ×2 (15:01→23:56)
[2017-11-06] MEDS: Pregabalin 75 MG Cap PO SCH (20:51)
[2017-11-06] MEDS: rOPINIRole 2 MG Tab PO SCH (20:53)
[2017-11-06] MEDS: Oxybutynin 5 MG Tab.ER PO SCH (20:53)
[2017-11-06] MEDS ORDERED: DICLOFENAC EPOLAMINE TOP SCH (21:00)
[2017-11-07] MEDS: Acetaminophen/oxyCODONE 325-5 MG Tab PO PRN ×2 (04:40→10:25)
[2017-11-07] MEDS: Benzonatate 100 MG Cap PO PRN (04:41)
[2017-11-07] MEDS: Albuterol/Ipratropium 3.0-0.5 MG/3 ML Neb Soln NEB SCH ×3 (04:42→13:28)
[2017-11-07] MEDS: methylPREDNISolone Sodium Succinate 40 MG/1 ML SDV IVPUSH SCH ×2 (04:43→13:26)
[2017-11-07] MEDS: guaiFENesin/Dextromethorphan 100-10 MG/5 ML Soln 5 ML Cup PO PRN (04:45)
[2017-11-07] MEDS: oxyCODONE 5 MG Tab PO PRN ×2 (04:56→10:26)
[2017-11-07] MEDS: Pantoprazole 40 MG Tab.CR PO SCH (05:00)
[2017-11-07] MEDS: Piperacillin/Tazobactam 4.5 GM in Sodium Chloride 0.9% 100 ML IV SCH ×3 (05:00)
[2017-11-07 06:50] LABS: ANION GAP 12.4; CHLORIDE,CL 106 mmol/L (101-111); SODIUM,NA 135 mmol/L (135-145)
[2017-11-07 08:25] VITALS: BP 144/76
[2017-11-07] MEDS: Insulin Detemir 100 Units/ML 3 ML Pen SUBCUT SCH (08:36)
[2017-11-07] MEDS: Ascorbic Acid 500 MG Tab PO SCH ×2 (08:37→13:25)
[2017-11-07] MEDS: Insulin Aspart 100 Units/ML 3 ML Pen SUBCUT SCH ×2 (08:37→13:27)
[2017-11-07] MEDS: Cholecalciferol (Vitamin D3) 400 Unit Tab PO SCH (08:38)
[2017-11-07] MEDS: Ferrous Sulfate 325 MG Tab PO SCH ×2 (08:38→13:25)
[2017-11-07] MEDS: DULoxetine 30 MG Cap PO SCH (08:38)
[2017-11-07] MEDS: Multivitamins,Therapeutic Tab PO SCH (08:39)
[2017-11-07] MEDS: Lisinopril 5 MG Tab PO SCH (08:39)
[2017-11-07] MEDS: Heparin Sodium 5,000 Units/ML Vial SUBCUT SCH (08:40)
[2017-11-07] MEDS: cycloSPORINE Ophth Drops U/D Box of 30 EYEBOTH SCH (08:41)
[2017-11-07] MEDS ORDERED: Levofloxacin 500 MG Tab PO SCH (11:00)
[2017-11-07] MEDS ORDERED: Insulin Aspart 100 Units/ML 3 ML Pen SUBCUT ONE ×2 (11:03→12:19)
--- NOTE | 2017-11-07 11:11 | PCM.DCSUM1 ---
Discharge Summary - Hospital Course HPI Initial Comments: Patient is 42 y/o F with PMH of RA on enbrel, DM-II, HTN, h/o MRSA presented to [facility] ER with productive cough for one week. She was found to have left lower lobe pneumonia and started on IV abx. Patient symptoms improved with IV antibiotics. She was seen today and doing well. She reports no new complaints. Patient is deemed stable for. Denies fever, chills, SOB. She is deemed stable for discharge. Diagnosis: Stroke: No - Discharge Data Discharge Date: 11/07/17 Discharge Disposition: Home, Self-Care 01 Condition: Fair - Discharge Diagnosis/Problem(s) (1) Pneumonia SNOMED Code(s): 282883129 ICD Code: J18.9 - PNEUMONIA, UNSPECIFIED ORGANISM Status: Acute Current Visit: Yes (2) Sepsis due to undetermined organism SNOMED Code(s): 61987495 ICD Code: A41.9 - SEPSIS, UNSPECIFIED ORGANISM Status: Acute Current Visit: Yes (3) Bronchitis SNOMED Code(s): 24003058 ICD Code: J40 - BRONCHITIS, NOT SPECIFIED ACUTE OR CHRONIC Status: Acute Current Visit: No (4) Pneumonia SNOMED Code(s): 158203217 ICD Code: J18.9 - PNEUMONIA, UNSPECIFIED ORGANISM Status: Acute Current Visit: No Qualifiers: Pneumonia type: due to unspecified organism Laterality: left Lung location: lower lobe of lung Qualified Code(s): J18.1 - Lobar pneumonia, unspecified organism (5) Diabetes SNOMED Code(s): 97484611 ICD Code: E11.9 - TYPE 2 DIABETES MELLITUS WITHOUT COMPLICATIONS Status: Acute Current Visit: Yes - Patient Summary/Data Consults: Consultations 11/05/17 20:33 Respiratory Care Assess and Treatment [CONS] Routine - Discharge Plan Prescriptions/Med Rec: Doxycycline [Vibramycin] 100 mg PO Q12HR 7 Days #14 cap Dextromethorphan/guaiFENesin [Robitussin DM] 5 ml PO Q6H PRN 5 Days #1 cup PRN Reason: Cough levoFLOXacin [Levaquin] 500 mg PO Q24H 10 Days #10 tablet Phosphorus #1 [Neutra-Phos] 250 mg PO QID 5 Days #20 tablet Home Medications: Home Meds Ascorbic Acid [Vitamin C] 250 mg PO TID 03/08/14 [History] predniSONE 7.5 mg PO DAILY 03/08/14 [History] Ferrous Sulfate [Iron] 325 mg PO TID 09/13/14 [History] Pantoprazole [Pantoprazole Sodium] 40 mg PO DAILY 09/13/14 [History] DULoxetine [Cymbalta] 60 mg PO DAILY 08/07/15 [History] rOPINIRole [Requip] 1 mg PO BEDTIME 08/13/15 [History] Multivitamin [Multivitamins] 1 each PO DAILY 09/20/15 [History] oxyCODONE HCl/Acetaminophen [Endocet 10-325 mg Tablet] 1 each PO Q4H PRN [History] Lisinopril [Prinivil] 2.5 mg PO DAILY 04/14/16 [History] Oxybutynin [Oxybutynin ER] 5 mg PO BEDTIME 04/14/16 [History] Pregabalin [Lyrica] 150 mg PO BEDTIME 04/14/16 [History] cycloSPORINE [Restasis] 1 drop EYEBOTH DAILY 04/14/16 [History] Cholecalciferol (Vitamin D3) [Vitamin D3] 400 units PO DAILY 04/13/17 [History] metFORMIN [Glucophage] 500 mg PO BIDMEALS 05/03/17 [History] traZODone HCl [Trazodone HCl] 50 mg PO BEDTIME PRN 06/06/17 [History] Diclofenac Epolamine [Flector] 1 patch TOP .Q3DAY 06/16/17 [History] Dextromethorphan/guaiFENesin [Robitussin DM] 5 ml PO Q6H PRN 5 Days #1 cup 11/07 [Rx] Doxycycline [Vibramycin] 100 mg PO Q12HR 7 Days #14 cap 11/07/17 [Rx] Phosphorus #1 [Neutra-Phos] 250 mg PO QID 5 Days #20 tablet 11/07/17 [Rx] levoFLOXacin [Levaquin] 500 mg PO Q24H 10 Days #10 tablet 11/07/17 [Rx] Patient Handouts: Dextromethorphan; Guaifenesin; Pseudoephedrine oral suspension, Sepsis, Adult, Doxycycline tablets or capsules, Levofloxacin tablets , Phosphorus Salts powder for oral solution, Type 2 Diabetes Mellitus, Diagnosis , Adult, [id number], Community-Acquired Pneumonia, Adult, [id number] - General Info Date of Service: 11/07/17 Admission Dx/Problem (Free Text: Admission Diagnosis/Problem Admission Diagnosis/Problem Pneumonia Subjective Update: Patient is 42 y/o F with PMH of RA on enbrel, DM-II, HTN, h/o MRSA presented to [facility] ER with productive cough for one week. She was found to have left lower lobe pneumonia and started on IV abx. Patient symptoms improved with IV antibiotics. She was seen today and doing well. She reports no new complaints. Patient is deemed stable for. Denies fever, chills, SOB. She is deemed stable for discharge. Functional Status: Reports: Pain Controlled - Review of Systems General: Reports: No Symptoms HEENT: Reports: No Symptoms Pulmonary: Reports: No Symptoms Cardiovascular: Reports: No Symptoms Gastrointestinal: Reports: No Symptoms Genitourinary: Reports: No Symptoms Musculoskeletal: Reports: No Symptoms Skin: Reports: No Symptoms Neurological: Reports: No Symptoms Psychiatric: Reports: No Symptoms - Patient Data Vitals - Most Recent: Last Vital Signs Temp 97.6 F 11/07/17 08:24 Pulse 78 11/07/17 08:24 Resp 18 11/07/17 08:24 BP 144/76 H 11/07/17 08:39 Pulse Ox 100 11/07/17 08:24 Weight - Most Recent: 240 lb I&O - Last 24 hours: Intake & Output 11/06/17 11/07/17 11/07/17 22:59 06:59 14:59 Intake Total 3346 1061 Balance 3346 1061 Lab Results - Last 24 hrs: Laboratory Results - last 24 hr 11/06/17 11/06/17 11/07/17 Range/Units 16:56 20:59 06:15 WBC 6.2 (5.0-10.0) 10^3/uL RBC 3.53 L (4.2-5.4) 10^6/uL Hgb 9.4 L (12.0-16.0) g/dL Hct 31.1 L (37.0-47.0) % MCV 88.1 (80-100) fL MCH 26.6 L (27.0-34.0) pg MCHC 30.2 L (33.0-35.0) g/dL Plt Count 268 (150-450) 10^3/uL Neut % (Auto) 82.4 H (42.2-75.2) % Lymph % (Auto) 12.4 L (20.5-50.1) % [place] % (Auto) 5.2 (2-8) % Eos % (Auto) 0.0 L (1.0-3.0) % Baso % (Auto) 0.0 (0.0-1.0) % Sodium (135-145) mmol/L Potassium (3.6-5.0) mmol/L Chloride (101-111) mmol/L Carbon Dioxide (21.0-31.0) mmol/L Anion Gap BUN (7-18) mg/dL Creatinine (0.6-1.3) mg/dL Est Cr Clr Drug Dosing mL/min Estimated GFR (MDRD) Glucose (74-105) mg/dL POC Glucose 316 H 342 H (70-105) mg/dl Calcium (8.4-10.2) mg/dl Phosphorus (2.5-4.6) mg/dL 11/07/17 11/07/17 11/07/17 Range/Units 06:15 07:45 10:54 WBC (5.0-10.0) 10^3/uL RBC (4.2-5.4) 10^6/uL Hgb (12.0-16.0) g/dL Hct (37.0-47.0) % MCV (80-100) fL MCH (27.0-34.0) pg MCHC (33.0-35.0) g/dL Plt Count (150-450) 10^3/uL Neut % (Auto) (42.2-75.2) % Lymph % (Auto) (20.5-50.1) % [place] % (Auto) (2-8) % Eos % (Auto) (1.0-3.0) % Baso % (Auto) (0.0-1.0) % Sodium 135 (135-145) mmol/L Potassium 4.4 (3.6-5.0) mmol/L Chloride 106 (101-111) mmol/L Carbon Dioxide 21.0 (21.0-31.0) mmol/L Anion Gap 12.4 BUN 15 (7-18) mg/dL Creatinine 0.8 (0.6-1.3) mg/dL Est Cr Clr Drug Dosing 91.47 mL/min Estimated GFR (MDRD) > 60 Glucose 348 H (74-105) mg/dL POC Glucose 314 H 353 H (70-105) mg/dl Calcium 8.2 L (8.4-10.2) mg/dl Phosphorus 2.2 L (2.5-4.6) mg/dL JHONNY Results - Last 24 hrs: Microbiology 11/06/17 09:50 Gram Stain - Final Sputum - Expectorated Sputum Culture - Preliminary 11/05/17 21:07 Aerobic Blood Culture - Preliminary Blood - Venous - Lab Draw NO GROWTH AFTER 1 DAY Anaerobic Blood Culture - Final 11/05/17 21:05 Aerobic Blood Culture - Preliminary Blood - Venous NO GROWTH AFTER 1 DAY Anaerobic Blood Culture - Preliminary NO GROWTH AFTER 1 DAY Med Orders - Current: Current Medications Acetaminophen (Tylenol) 650 mg PO Q4H PRN PRN Reason: Pain (Mild 1-3)/fever Last Admin: 11/06/17 12:16 Dose: 650 mg Albuterol/Ipratropium (Duoneb 3.0-0.5 Mg/3 Ml) 3 ml NEB Q4HRRT [facility] Last Admin: 11/07/17 07:17 Dose: 3 ml Ascorbic Acid (Vitamin C) 250 mg PO TID [facility] Last Admin: 11/07/17 08:37 Dose: 250 mg Benzonatate (Tessalon Perles) 100 mg PO QID PRN PRN Reason: Cough Last Admin: 11/07/17 04:41 Dose: 100 mg Cholecalciferol (Vitamin D3) 400 units PO DAILY [facility] Last Admin: 11/07/17 08:38 Dose: 400 units Cyclosporine (Restasis) 0 each EYEBOTH DAILY [facility] Last Admin: 11/07/17 08:41 Dose: 1 drop Docusate Sodium (Colace) 100 mg PO BID PRN PRN Reason: Constipation Last Admin: 11/07/17 08:53 Dose: 100 mg Doxycycline Hyclate (Vibramycin) 100 mg PO Q12HR [facility] Duloxetine HCl (Cymbalta) 60 mg PO DAILY [facility] Last Admin: 11/07/17 08:38 Dose: 60 mg Ferrous Sulfate (Ferrous Sulfate) 325 mg PO TID [facility] Last Admin: 11/07/17 08:38 Dose: 325 mg Guaifenesin/Phenylephrine HCl (Robitussin Dm) 5 ml PO Q4H PRN PRN Reason: Cough Last Admin: 11/07/17 04:45 Dose: 5 ml Heparin Sodium (Porcine) (Heparin Sodium) 5,000 units SUBCUT Q12H [facility] Last Admin: 11/07/17 08:40 Dose: 5,000 units Sodium Chloride (Normal Saline) 1,000 mls @ 125 mls/hr IV ASDIRECTED [facility] Last Admin: 11/06/17 23:56 Dose: 125 mls/hr Insulin Aspart (Novolog) 0 unit SUBCUT QIDACANDBED [facility]; Protocol Last Admin: 11/07/17 08:37 Dose: 4 units Insulin Aspart (Novolog) 15 unit SUBCUT ONETIME ONE Stop: 11/07/17 11:04 Insulin Detemir (Levemir) 10 unit SUBCUT BID [facility] Last Admin: 11/07/17 08:36 Dose: 10 units Levofloxacin (Levaquin) 500 mg PO Q24H [facility] Lisinopril (Prinivil) 2.5 mg PO DAILY [facility] Last Admin: 11/07/17 08:39 Dose: 2.5 mg Magnesium Hydroxide (Milk Of Magnesia) 30 ml PO Q12H PRN PRN Reason: Constipation Methylprednisolone Sodium Succinate (Solu-Medrol) 40 mg IVPUSH Q8H [facility] Last Admin: 11/07/17 04:43 Dose: 40 mg Multivitamins (Thera) 1 each PO DAILY [facility] Last Admin: 11/07/17 08:39 Dose: 1 each Ondansetron HCl (Zofran) 4 mg IVPUSH Q8H PRN PRN Reason: Nausea/Vomiting Oxybutynin Chloride (Oxybutynin Er) 5 mg PO BEDTIME [facility] Last Admin: 11/06/17 20:53 Dose: 5 mg Oxycodone HCl (Oxycodone) 5 mg PO Q4H PRN PRN Reason: PAIN Last Admin: 11/07/17 10:26 Dose: 5 mg Oxycodone/Acetaminophen (Percocet 325-5 Mg) 1 tab PO Q4H PRN PRN Reason: PAIN Last Admin: 11/07/17 10:25 Dose: 1 tab Pantoprazole Sodium (Protonix) 40 mg PO ACBRK [facility] Last Admin: 11/07/17 05:00 Dose: 40 mg Diclofenac Epolamine [Flector] 1 Patch * *Pt's Own Med 1 each TOP Q3D@2100 [facility] Last Admin: 11/06/17 20:55 Dose: Not Given Pregabalin (Lyrica) 150 mg PO BEDTIME [facility] Last Admin: 11/06/17 20:51 Dose: 150 mg Ropinirole HCl (Requip) 1 mg PO BEDTIME [facility] Last Admin: 11/06/17 20:53 Dose: 1 mg Sodium Phosphate (Neutra-Phos) 250 mg PO QID [facility] Trazodone HCl (Trazodone) 50 mg PO BEDTIME PRN PRN Reason: Insomnia Last Admin: 11/06/17 22:39 Dose: 50 mg Discontinued Medications Acetaminophen (Tylenol) 325 mg PO NOW ONE Stop: 11/05/17 19:25 Last Admin: 11/05/17 19:28 Dose: 325 mg Albuterol/Ipratropium (Duoneb 3.0-0.5 Mg/3 Ml) 3 ml NEB ONETIME ONE Stop: 11/05/17 18:51 Last Admin: 11/05/17 19:14 Dose: 3 ml Piperacillin Sod/Tazobactam (Sod 4.5 gm/ Sodium Chloride) 50 mls @ 100 mls/hr IV Q6H [facility] Last Admin: 11/06/17 11:45 Dose: Not Given Sodium Chloride (Normal Saline) 1,000 mls @ 125 mls/hr IV ASDIRECTED [facility] Last Infusion: 11/06/17 15:01 Dose: Infused Sodium Chloride (Normal Saline) 1,000 mls @ 999 mls/hr IV ASDIRECTED [facility] Last Admin: 11/05/17 21:41 Dose: 999 mls/hr Vancomycin HCl 1.25 gm/ Sodium (Chloride) 250 mls @ 166.667 mls/hr IV Q8H [facility] Last Admin: 11/06/17 06:09 Dose: 166.667 mls/hr Piperacillin Sod/Tazobactam (Sod 4.5 gm/ Sodium Chloride) 100 mls @ 200 mls/hr IV Q6HR [facility] Last Admin: 11/07/17 05:00 Dose: 200 mls/hr Magnesium Sulfate 2 gm/ Premix 50 mls @ 25 mls/hr IV ONETIME ONE Stop: 11/06/17 11:49 Last Infusion: 11/06/17 13:09 Dose: Infused Metformin HCl (Glucophage) 500 mg PO BIDMEALS [facility] Methylprednisolone Sodium Succinate (Solu-Medrol) 125 mg IVPUSH ONETIME ONE Stop: 11/05/17 18:51 Last Admin: 11/05/17 19:13 Dose: 125 mg Prednisone (Prednisone) 7.5 mg PO WITHBREAKFAST NELLY Promethazine HCl/Codeine (Phenergan With Codeine) 5 ml PO ONETIME ONE Stop: 11/05/17 18:53 Last Admin: 11/05/17 19:13 Dose: 5 ml Vancomycin HCl (Pharmacy To Dose - Vancomycin) 1 dose .XX ASDIRECTED NELLY - Exam General: Reports: Alert, Oriented HEENT: Reports: Pupils Equal, Pupils Reactive, EOMI, Mucous Membr. Moist/[place] Neck: Reports: Supple Lungs: Reports: Clear to Auscultation, Normal Respiratory Effort Cardiovascular: Reports: Regular Rate, Regular Rhythm GI/Abdominal Exam: Normal Bowel Sounds, Soft, Non-Tender, No Organomegaly, No Distention, No Abnormal Bruit, No Mass, Pelvis Stable (Female) Exam: Normal External Exam, Normal Speculum Exam, Normal Bimanual Exam Rectal (Female) Exam: Normal Exam, Normal Rectal Tone Back Exam: Reports: Normal Inspection, Full Range of Motion Extremities: Normal Inspection, Normal Range of Motion, Non-Tender, No Pedal Edema, Normal Capillary Refill Skin: Reports: Warm, Dry, Intact Wound/Incisions: Reports: Healing Well Neurological: Reports: No New Focal Deficit Psy/Mental Status: Reports: Alert, Normal Affect, Normal Mood
[2017-11-07] MEDS ORDERED: Phosphorus #1 250 MG Tab PO SCH (13:00)
[2017-11-07] MEDS ORDERED: Doxycycline 100 MG Cap PO SCH (21:00)
== END 2017-11-07 13:30 | disposition home or self-care (01) | DRG 871 ==
LOC: DL.ED 17:43 → UNDOADMIN 20:12 → DL.MS 20:12
PROVIDERS: ADMIT Student in an Organized Health Care Education/Training Program; ATTEND Student in an Organized Health Care Education/Training Program
DX: A41.9 Sepsis, unspecified organism (principal); J98.01 Acute bronchospasm; J18.9 Pneumonia, unspecified organism; J40 Bronchitis, not specified as acute or chronic; E11.9 Type 2 diabetes mellitus without complications; E66.9 Obesity, unspecified; Z68.36 Body mass index [BMI] 36.0-36.9, adult; M06.9 Rheumatoid arthritis, unspecified; M41.9 Scoliosis, unspecified; I10 Essential (primary) hypertension; H54.7 Unspecified visual loss; G47.30 Sleep apnea, unspecified; F32.9 Major depressive disorder, single episode, unspecified; K29.70 Gastritis, unspecified, without bleeding; Z79.52 Long term (current) use of systemic steroids; Z79.84 Long term (current) use of oral hypoglycemic drugs; Z79.899 Other long term (current) drug therapy; Z86.14 Personal history of Methicillin resistant Staphylococcus aureus infection; Z87.891 Personal history of nicotine dependence; Z88.8 Allergy status to other drugs, medicaments and biological substances; Z89.421 Acquired absence of other right toe(s)
CPT/HCPCS: 36415; 71046; 80053; 83605; 85025; 94640; 96374; 99284; A9270 ×2; J2930; 80048; 82962; 83735; 84100; 87040; 87070; 87077; 87186; 87205; 94060; J1644; J1815-GY; J2543; J2920; J3370; J3475; J7030; J7050; J7620-GY

== ENCOUNTER 2017-12-01 11:05 | Inpatient (IN) | payer MEDICARE, MEDICAID ==
[2017-12-01 12:38] LABS: ANION GAP 12.4; CHLORIDE,CL 103 mmol/L (101-111); SODIUM,NA 136 mmol/L (135-145)
[2017-12-01] MEDS: Piperacillin/Tazobactam 3.375 GM in Sodium Chloride 0.9% 100 ML IV SCH ×3 (13:22→23:30)
[2017-12-01] MEDS ORDERED: Acetaminophen/oxyCODONE 325-5 MG Tab PO PRN (13:27)
[2017-12-01] MEDS ORDERED: traZODone 50 MG Tab PO PRN (13:27)
[2017-12-01] MEDS ORDERED: guaiFENesin/Dextromethorphan 100-10 MG/5 ML Soln 5 ML Cup PO PRN (13:27)
[2017-12-01] MEDS: VANCOMYCIN HCL IV SCH ×2 (14:18→21:28)
[2017-12-01] MEDS: VANCOMYCIN IV SCH ×2 (14:18→21:28)
[2017-12-01] MEDS: SODIUM CHLORIDE 0.9% IV SCH ×2 (14:18→21:28)
[2017-12-01] MEDS ORDERED: Sodium Chloride 0.9% 10 ML Syringe FLUSH PRN (14:19)
[2017-12-01] MEDS ORDERED: Acetaminophen 325 MG Tab PO PRN (14:19)
[2017-12-01] MEDS ORDERED: Zolpidem 5 MG Tab PO PRN (14:19)
[2017-12-01] MEDS: Morphine 2 MG/ML Syringe IVPUSH PRN (14:20)
[2017-12-01] MEDS: Ondansetron 4 MG/2 ML SDV IV PRN (14:23)
--- NOTE | 2017-12-01 14:32 | PCM.HP ---
H&P History of Present Illness - General Date of Service: 12/01/17 Admit Problem/Dx: Admission Diagnosis/Problem Admission Diagnosis/Problem Cellulitis Source of Information: Patient - History of Present Illness Initial Comments - Free Text/Narative: Patient is a 42-year-old lady who has a history of diabetes, rheumatoid arthritis. The patient is immunocompromised. She was recently hospitalized for pneumonia. The patient presented with two erythematous areas on the lower extremities. 1 which is the larger is on the right side of the posterior thigh and the smaller one on the left side the anterior thigh. The left one started initially and then later the right one appeared. They have been present for about 5-7 days. The right one is significantly tender, the pain is severe, sharp, worse with touching. There is small amount of drainage from the left thumb. There is no apparent trauma or insect bite. 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 - Related Data Allergies/Adverse Reactions: Allergies Allergy/AdvReac Type Severity Reaction Status Date / Time daptomycin Allergy Rash Verified 12/01/17 12:08 rituximab [From Rituxan] Allergy Difficulty Verified 12/01/17 12:08 Breathing Home Medications: Home Meds Ascorbic Acid [Vitamin C] 250 mg PO TIDMEALS 03/08/14 [History] predniSONE 5 mg PO DAILY 03/08/14 [History] Ferrous Sulfate [Iron] 325 mg PO TIDMEALS 09/13/14 [History] Pantoprazole [Pantoprazole Sodium] 40 mg PO BID 09/13/14 [History] DULoxetine [Cymbalta] 60 mg PO DAILY 08/07/15 [History] rOPINIRole [Requip] 1 mg PO BEDTIME 08/13/15 [History] Multivitamin [Multivitamins] 1 each PO DAILY 09/20/15 [History] oxyCODONE HCl/Acetaminophen [Endocet 10-325 mg Tablet] 1 each PO Q4H PRN [History] Lisinopril [Prinivil] 2.5 mg PO DAILY 04/14/16 [History] Oxybutynin [Oxybutynin ER] 5 mg PO BEDTIME 04/14/16 [History] Pregabalin [Lyrica] 150 mg PO BEDTIME PRN 04/14/16 [History] cycloSPORINE [Restasis] 1 drop EYEBOTH BID 04/14/16 [History] Cholecalciferol (Vitamin D3) [Vitamin D3] 400 units PO DAILY 04/13/17 [History] metFORMIN [Glucophage] 500 mg PO BIDMEALS 05/03/17 [History] traZODone HCl [Trazodone HCl] 50 mg PO BEDTIME PRN 06/06/17 [History] Diclofenac Epolamine [Flector] 1 patch TOP .Q3DAY 06/16/17 [History] Dextromethorphan/guaiFENesin [Robitussin DM] 5 ml PO Q6H PRN 5 Days #1 cup 11/07 [Rx] Phosphorus #1 [Neutra-Phos] 250 mg PO QID 5 Days #20 tablet 11/07/17 [Rx] Etanercept [Enbrel] 25 mg SQ .TUTH 12/01/17 [History] Past Medical History - Past Health History Medical/Surgical History: Denies Medical/Surgical History HEENT History: Reports: Cataract, Impaired Vision, Other (See Below) Other HEENT History: wears glasses Cardiovascular History: Reports: Hypertension, SOB on Exertion Respiratory History: Reports: Bronchitis, Recurrent, Sleep Apnea, SOB Gastrointestinal History: Reports: Gastritis, Other (See Below) Other Gastrointestinal History: chronic stomach pains. ABCESS OF ABDOMEN Genitourinary History: Reports: Other (See Below) Other Genitourinary History: RENAL ABSCESS [employer] History: Reports: , Other (See Below) Other OB/BYN History: 2 Musculoskeletal History: Reports: Amputation, Back Pain, Chronic, Fibromyalgia, RA, Other (See Below) Other Musculoskeletal History: Scoliosis of the spine w/ chronic back pain. OSTEOMELITIS OF RIGHT FOOT, healed 05/10/17 Neurological History: Reports: Other (See Below) Other Neuro History: SOMNOLENCE, DAYTIME, nerve damage to back and legs Psychiatric History: Reports: Anxiety, Eating Disorders Endocrine/Metabolic History: Reports: Diabetes, Type II, IDDM, Obesity/BMI 30+ Hematologic History: Reports: Iron Deficiency, Other (See Below) Other Hematologic History: HX OF SEPSIS. HX OF MRSA INFECTION Immunologic History: Reports: Immunosuppression, Other (See Below) Other Immunologic History: RA Oncologic (Cancer) History: Reports: None Dermatologic History: Reports: Cellulitis, Other (See Below) Other Dermatologic History: hx of mrsa. HX OF SKIN ULCERS OF FOOT, BILAT. DIABETIC SKIN ULCERS. CELLULITIS OF L ANTERIOR LOWER LEG. BIOPSY OF SKIN LESION - Infectious Disease History Infectious Disease History: Reports: MRSA Other Infectious Disease History: CELLULITIS - Past Surgical History Head Surgeries/Procedures: Reports: None HEENT Surgical History: Reports: Cataract Surgery Cardiovascular Surgical History: Reports: None Respiratory Surgical History: Reports: None GI Surgical History: Reports: None Female Surgical History: Reports: Other (See Below) Other Female Surgeries/Procedures: cyst on her left kidney Endocrine Surgical History: Reports: None Neurological Surgical History: Reports: None Musculoskeletal Surgical History: Reports: Amputation, Other (See Below) Other Musculoskeletal Surgeries/Procedures:: right toe ampulation Oncologic Surgical History: Reports: None Dermatological Surgical History: Reports: Other (See Below) Social & Family History - Family History Family Medical History: Noncontributory HEENT: Reports: None Cardiac: Reports: None Respiratory: Reports: None GI: Reports: None : Reports: None OBGYN: Reports: None Musculoskeletal: Reports: RA Neurological: Reports: None Psychiatric: Reports: Depression Endocrine/Metabolic: Reports: Diabetes, type II Hematologic: Reports: None Immunologic: Reports: None Dermatologic: Reports: None Oncologic: Reports: None - Tobacco Use Smoking Status *Q: Former Smoker Years of Tobacco use: 3 Used Tobacco, but Quit: Yes Month/Year Tobacco Last Used: 2004 Second Hand Smoke Exposure: Yes - Caffeine Use Caffeine Use: Reports: Coffee, Soda, Tea Other Caffeine Use: 16oz daily Caffeine Use Comment: 3/day - Recreational Drug Use Recreational Drug Use: No - Living Situation & Occupation Living situation: Reports: with Family H&P Review of Systems - Review of Systems: Review Of Systems: See Below General: Reports: Fever (Noted in the clinic today) Pulmonary: Reports: Cough (Since the last pneumonia episode). Denies: Shortness of Breath Cardiovascular: Denies: Chest Pain Gastrointestinal: Denies: Abdominal Pain Genitourinary: Denies: Dysuria Skin: Reports: Erythema Psychiatric: Denies: Confusion Exam - Exam Exam: See Below - Vital Signs Weight: 117.118 kg - Exam Quality Assessment: No: Supplemental Oxygen General: Alert, Oriented Neck: Supple Lungs: Clear to Auscultation, Normal Respiratory Effort Cardiovascular: Regular Rate, Regular Rhythm GI/Abdominal Exam: Normal Bowel Sounds, Soft, Non-Tender, Other (Obese) Extremities: No Pedal Edema Skin: Other (On the right side posterior thigh there is an indurated area with erythema around it this is about the 4 inches in diameter. On the left side on the anterior thigh there is about 1 inch diameter indurated area.) - Patient Data Lab Results Last 24 hrs: Laboratory Results - last 24 hr 12/01/17 12/01/17 12/01/17 Range/Units 12:03 12:03 12:03 WBC 5.5 (5.0-10.0) 10^3/uL RBC 3.94 L (4.2-5.4) 10^6/uL Hgb 11.3 L D (12.0-16.0) g/dL Hct 37.0 (37.0-47.0) % MCV 93.9 D (80-100) fL MCH 28.7 (27.0-34.0) pg MCHC 30.5 L (33.0-35.0) g/dL Plt Count 223 (150-450) 10^3/uL Neut % (Auto) 68.1 (42.2-75.2) % Lymph % (Auto) 20.9 (20.5-50.1) % [place] % (Auto) 7.9 (2-8) % Eos % (Auto) 3.1 H (1.0-3.0) % Baso % (Auto) 0.0 (0.0-1.0) % Sodium 136 (135-145) mmol/L Potassium 4.4 (3.6-5.0) mmol/L Chloride 103 (101-111) mmol/L Carbon Dioxide 25.0 (21.0-31.0) mmol/L Anion Gap 12.4 BUN 21 H (7-18) mg/dL Creatinine 0.9 (0.6-1.3) mg/dL Est Cr Clr Drug Dosing 82.77 mL/min Estimated GFR (MDRD) > 60 Glucose 156 H (74-105) mg/dL Lactic Acid 1.9 (0.5-2.2) mmol/L Calcium 8.7 (8.4-10.2) mg/dl Result Diagrams: 12/01/17 12:03 12/01/17 12:03 - Problem List (1) Cellulitis of lower extremity SNOMED Code(s): 669784281 ICD Code: L03.119 - CELLULITIS OF UNSPECIFIED PART OF LIMB Status: Acute Current Visit: No Problem List Initiated/Reviewed/Updated: Yes Orders Last 24hrs: Active Orders 24 hr Category Date Time Status Patient Status [ADT] Routine ADT 12/01/17 14:19 Ordered Glucose [Blood Glucose Check, Bedside] [RC] QIDACANDBED Care 12/01/17 11:50 Active Oxygen Therapy [RC] PRN Care 12/01/17 14:19 Ordered Peripheral IV Care [RC] . DIRECTED Care 12/01/17 14:21 Ordered Up ad Janeth [RC] ASDIRECTED Care 12/01/17 14:19 Ordered VTE/DVT Education [RC] PER UNIT ROUTINE Care 12/01/17 14:19 Ordered Vital Signs [RC] Q4H Care 12/01/17 14:19 Ordered Consistent Carbohydrate Diet [DIET] Diet 12/01/17 Lunch Active CULTURE BLOOD [BC] Stat Lab 12/01/17 11:57 Received CULTURE BLOOD [BC] Stat Lab 12/01/17 12:03 Received VANCOMYCIN TROUGH [CHEM] Timed Lab 12/02/17 20:30 Ordered Acetaminophen [Tylenol] Med 12/01/17 14:19 Ordered 650 mg PO Q4H PRN Acetaminophen/oxyCODONE Med 12/01/17 13:27 Ordered 1 each PO Q4H PRN Ascorbic Acid [Vitamin C] Med 12/01/17 18:00 Ordered 250 mg PO TIDMEALS Cholecalciferol (Vitamin D3) [Vitamin D3] Med 12/02/17 09:00 Ordered 400 units PO DAILY DULoxetine [Cymbalta] Med 12/02/17 09:00 Ordered 60 mg PO DAILY Dextromethorphan/guaiFENesin [Robitussin DM] Med 12/01/17 13:27 Ordered 5 ml PO Q6H PRN Ferrous Sulfate Med 12/01/17 18:00 Ordered 325 mg PO TIDMEALS Heparin Sodium Med 12/01/17 22:00 Ordered 5,000 units SUBCUT Q8HR Insulin Aspart [NovoLOG] Med 12/01/17 17:00 Active See Protocol SUBCUT ACBED Lisinopril [Prinivil] Med 12/02/17 09:00 Ordered 2.5 mg PO DAILY Morphine Med 12/01/17 11:47 Active 1 mg IVPUSH Q4H PRN Multivitamin [Multivitamins] Med 12/02/17 09:00 Ordered 1 each PO DAILY Ondansetron [Zofran] Med 12/01/17 13:39 Ordered 4 mg IV Q6H PRN Oxybutynin [Oxybutynin ER] Med 12/01/17 21:00 Ordered 5 mg PO BEDTIME Pantoprazole [Pantoprazole Sodium] Med 12/01/17 21:00 Ordered 40 mg PO BID Phosphorus #1 [Neutra-Phos] Med 12/01/17 17:00 Ordered 250 mg PO QID Piperacillin/Tazobactam [Zosyn] 3.375 gm Med 12/01/17 12:00 Active Sodium Chloride 0.9% [Normal Saline] 100 ml IV Q6H Pregabalin [Lyrica] Med 12/01/17 13:27 Ordered 150 mg PO BEDTIME PRN Sodium Chloride 0.9% [Saline Flush] Med 12/01/17 14:19 Ordered 10 ml FLUSH ASDIRECTED PRN Vancomycin HCl [Vancomycin 750mg AddVial] 750 mg Med 12/01/17 13:00 Active Vancomycin 500 mg Sodium Chloride 0.9% [Normal Saline] 250 ml IV Q8H Vancomycin Pharmacy to Dose [Pharmacy to Dose - Med 12/01/17 12:00 Pending Vancomycin] 1 dose .XX ASDIRECTED Zolpidem [Ambien] Med 12/01/17 14:19 Ordered 5 mg PO BEDTIME PRN cycloSPORINE [Restasis] Med 12/01/17 21:00 Ordered 1 drop EYEBOTH BID oxyCODONE Med 12/01/17 14:06 Active 5 mg PO Q4H PRN predniSONE Med 12/02/17 09:00 Ordered 5 mg PO DAILY rOPINIRole [Requip] Med 12/01/17 21:00 Ordered 1 mg PO BEDTIME traZODone Med 12/01/17 13:27 Ordered 50 mg PO BEDTIME PRN Antiembolic Hose [OM.PC] Per Unit Routine Oth 12/01/17 14:20 Ordered Blood Culture x2 Reflex Set [OM.PC] Stat Oth 12/01/17 11:46 Ordered Peripheral IV Insertion Adult [OM.PC] Routine Oth 12/01/17 14:19 Ordered Saline Lock Insert [OM.PC] Routine Oth 12/01/17 14:19 Ordered Resuscitation Status Routine Resus Stat 12/01/17 14:19 Ordered Medication Orders Acetaminophen (Tylenol) 650 mg PO Q4H PRN PRN Reason: Pain (Mild 1-3)/fever Ascorbic Acid (Vitamin C) 250 mg PO TIDMEALS [facility] Cholecalciferol (Vitamin D3) 400 units PO DAILY [facility] Cyclosporine (Restasis) 1 each EYEBOTH BID [facility] Duloxetine HCl (Cymbalta) 60 mg PO DAILY [facility] Ferrous Sulfate (Ferrous Sulfate) 325 mg PO TIDMEALS [facility] Guaifenesin/Phenylephrine HCl (Robitussin Dm) 5 ml PO Q6H PRN PRN Reason: Cough Heparin Sodium (Porcine) (Heparin Sodium) 5,000 units SUBCUT Q8HR [facility] Piperacillin Sod/Tazobactam (Sod 3.375 gm/ Sodium Chloride) 100 mls @ 200 mls/ hr IV Q6H [facility] Last Admin: 12/01/17 13:22 Dose: 200 mls/hr Vancomycin HCl 750 mg/Vancomycin HCl 500 mg/ Sodium Chloride 250 mls @ 166.667 mls/hr IV Q8H [facility] Last Admin: 12/01/17 14:18 Dose: 166.667 mls/hr Insulin Aspart (Novolog) 0 unit SUBCUT ACBED [facility]; Protocol Lisinopril (Prinivil) 2.5 mg PO DAILY [facility] Morphine Sulfate (Morphine) 1 mg IVPUSH Q4H PRN PRN Reason: SEVERE PAIN Last Admin: 12/01/17 14:20 Dose: 1 mg Multivitamins (Thera) 1 each PO DAILY [facility] Ondansetron HCl (Zofran) 4 mg IV Q6H PRN PRN Reason: Nausea/Vomiting Last Admin: 12/01/17 14:23 Dose: 4 mg Oxybutynin Chloride (Oxybutynin Er) 5 mg PO BEDTIME [facility] Oxycodone HCl (Oxycodone) 5 mg PO Q4H PRN PRN Reason: MODERATE PAIN Oxycodone/Acetaminophen (Percocet 325-5 Mg) 1 tab PO Q4H PRN PRN Reason: moderate Pain Pantoprazole Sodium (Protonix) 40 mg PO BIDAC [facility] Prednisone (Prednisone) 5 mg PO DAILY@0800 [facility] Pregabalin (Lyrica) 150 mg PO BEDTIME PRN PRN Reason: restless leg Ropinirole HCl (Requip) 1 mg PO BEDTIME [facility] Sodium Chloride (Saline Flush) 10 ml FLUSH ASDIRECTED PRN PRN Reason: Keep Vein Open Sodium Phosphate (Neutra-Phos) 250 mg PO QID [facility] Trazodone HCl (Trazodone) 50 mg PO BEDTIME PRN PRN Reason: Insomnia Vancomycin HCl (Pharmacy To Dose - Vancomycin) 1 dose .XX ASDIRECTED [facility] Zolpidem Tartrate (Ambien) 5 mg PO BEDTIME PRN PRN Reason: Sleep Assessment/Plan Comment:: The patient is a 42-year-old lady with a history of rheumatoid arthritis, chronic kidney disease stage III, diabetes, immunocompromise status of on chronic steroids. Right lower extremity area of cellulitis, left lower extremity cellulitis. Both area appears to have some induration but no abscess. This might represent folliculitis in origin. We will obtain blood culture Start treatment with vancomycin and Zosyn Diabetes Hold metformin Use supplemental insulin as needed Chronic kidney disease stage III We'll monitor electrolytes and renal function test The patient has a history of hypotension and has been on midodrine in the past Also on MIKE inhibitor low dose for renal protection Monitor vital signs Pain control will be with Tylenol, oxycodone for moderate pain, IV morphine for severe pain DVT prophylaxis with subcutaneous heparin
[2017-12-01] MEDS: Insulin Aspart 100 Units/ML 3 ML Pen SUBCUT SCH ×2 (18:03→21:38)
[2017-12-01] MEDS: Phosphorus #1 250 MG Tab PO SCH ×2 (18:03→21:28)
[2017-12-01] MEDS: Ascorbic Acid 500 MG Tab PO SCH (18:04)
[2017-12-01] MEDS: Pantoprazole 40 MG Tab.CR PO SCH (18:04)
[2017-12-01] MEDS: Ferrous Sulfate 325 MG Tab PO SCH (18:04)
[2017-12-01] MEDS: oxyCODONE 5 MG Tab PO PRN ×2 (19:07→23:19)
[2017-12-01] MEDS: Sodium Chloride 0.9% 1,000 ML IV SCH (20:00)
[2017-12-01] MEDS: Midodrine 2.5 MG Tab PO SCH (21:23)
[2017-12-01] MEDS: Oxybutynin 5 MG Tab.ER PO SCH (21:25)
[2017-12-01] MEDS: rOPINIRole 2 MG Tab PO SCH (21:25)
[2017-12-01] MEDS: Heparin Sodium 5,000 Units/ML Vial SUBCUT SCH (21:30)
[2017-12-01] MEDS: cycloSPORINE Ophth Drops U/D Box of 30 EYEBOTH SCH (21:36)
[2017-12-02] MEDS: Ondansetron 4 MG/2 ML SDV IV PRN ×3 (03:00→17:00)
[2017-12-02] MEDS: SODIUM CHLORIDE 0.9% IV SCH ×3 (04:34→21:33)
[2017-12-02] MEDS: VANCOMYCIN HCL IV SCH ×3 (04:34→21:33)
[2017-12-02] MEDS: VANCOMYCIN IV SCH ×3 (04:34→21:33)
[2017-12-02] MEDS: Heparin Sodium 5,000 Units/ML Vial SUBCUT SCH ×3 (06:13→21:59)
[2017-12-02] MEDS: Pantoprazole 40 MG Tab.CR PO SCH ×2 (06:19→18:25)
[2017-12-02] MEDS: Piperacillin/Tazobactam 3.375 GM in Sodium Chloride 0.9% 100 ML IV SCH ×3 (06:30→18:28)
[2017-12-02] MEDS: Insulin Aspart 100 Units/ML 3 ML Pen SUBCUT SCH ×4 (09:08→20:55)
[2017-12-02] MEDS: Phosphorus #1 250 MG Tab PO SCH ×4 (09:10→20:50)
[2017-12-02] MEDS: Cholecalciferol (Vitamin D3) 400 Unit Tab PO SCH (09:10)
[2017-12-02] MEDS: Multivitamins,Therapeutic Tab PO SCH (09:10)
[2017-12-02] MEDS: Midodrine 2.5 MG Tab PO SCH ×2 (09:10→20:49)
[2017-12-02] MEDS: predniSONE 5 MG Tab PO SCH (09:11)
[2017-12-02] MEDS: Ascorbic Acid 500 MG Tab PO SCH ×3 (09:11→18:28)
[2017-12-02] MEDS: Ferrous Sulfate 325 MG Tab PO SCH ×3 (09:11→18:28)
[2017-12-02] MEDS: DULoxetine 30 MG Cap PO SCH (09:12)
[2017-12-02] MEDS: Lisinopril 5 MG Tab PO SCH (09:12)
[2017-12-02] MEDS: oxyCODONE 5 MG Tab PO PRN ×2 (09:13→20:50)
[2017-12-02] MEDS: cycloSPORINE Ophth Drops U/D Box of 30 EYEBOTH SCH ×2 (09:15→20:52)
[2017-12-02] MEDS: Sodium Chloride 0.9% 1,000 ML IV SCH (09:57)
--- NOTE | 2017-12-02 12:37 | PCM.PN ---
- General Info Date of Service: 12/02/17 Admission Dx/Problem (Free Text): Admission Diagnosis/Problem Admission Diagnosis/Problem Cellulitis Subjective Update: Overnight had fever. Continues to have a moderate to severe pain in the right lower extremity where that the redness is present. The pain is worse with touch. She still has coughing. No shortness of breath. No abdominal pain. Functional Status: Denies: Pain Controlled - Review of Systems General: Reports: Fever, Weakness Pulmonary: Reports: Cough. Denies: Shortness of Breath, Sputum Cardiovascular: Denies: Chest Pain Gastrointestinal: Denies: Abdominal Pain Genitourinary: Denies: Dysuria Skin: Reports: Other (Continued pain especially in the right posterior thigh reddened area) - Patient Data Vitals - Most Recent: Last Vital Signs Temp 36.2 C 12/02/17 07:00 Pulse 107 H 12/02/17 07:00 Resp 22 H 12/02/17 07:00 BP 124/57 L 12/02/17 09:12 Pulse Ox 94 L 12/02/17 07:00 Weight - Most Recent: 117.118 kg I&O - Last 24 Hours: Intake & Output 12/01/17 12/02/17 12/02/17 22:59 06:59 14:59 Intake Total 348 1253 287 Output Total 600 Balance -252 1253 287 Lab Results Last 24 Hours: Laboratory Results - last 24 hr 12/01/17 12/01/17 12/01/17 Range/Units 12:03 12:03 16:48 Sodium 136 (135-145) mmol/L Potassium 4.4 (3.6-5.0) mmol/L Chloride 103 (101-111) mmol/L Carbon Dioxide 25.0 (21.0-31.0) mmol/L Anion Gap 12.4 BUN 21 H (7-18) mg/dL Creatinine 0.9 (0.6-1.3) mg/dL Est Cr Clr Drug Dosing 82.77 mL/min Estimated GFR (MDRD) > 60 Glucose 156 H (74-105) mg/dL POC Glucose 162 H (70-105) mg/dl Lactic Acid 1.9 (0.5-2.2) mmol/L Calcium 8.7 (8.4-10.2) mg/dl 12/01/17 12/02/17 Range/Units 20:51 07:43 Sodium (135-145) mmol/L Potassium (3.6-5.0) mmol/L Chloride (101-111) mmol/L Carbon Dioxide (21.0-31.0) mmol/L Anion Gap BUN (7-18) mg/dL Creatinine (0.6-1.3) mg/dL Est Cr Clr Drug Dosing mL/min Estimated GFR (MDRD) Glucose (74-105) mg/dL POC Glucose 149 H 150 H (70-105) mg/dl Lactic Acid (0.5-2.2) mmol/L Calcium (8.4-10.2) mg/dl Qasim Results Last 24 Hours: Microbiology 12/01/17 11:57 Aerobic Blood Culture - Preliminary Blood - Venous NO GROWTH AFTER 1 DAY Anaerobic Blood Culture - Preliminary NO GROWTH AFTER 1 DAY 12/01/17 12:03 Aerobic Blood Culture - Preliminary Blood - Venous - Lab Draw NO GROWTH AFTER 1 DAY Anaerobic Blood Culture - Preliminary NO GROWTH AFTER 1 DAY Med Orders - Current: Current Medications Acetaminophen (Tylenol) 650 mg PO Q4H PRN PRN Reason: Pain (Mild 1-3)/fever Last Admin: 12/01/17 18:23 Dose: 650 mg Ascorbic Acid (Vitamin C) 250 mg PO TIDMEALS [facility] Last Admin: 12/02/17 09:11 Dose: 250 mg Cholecalciferol (Vitamin D3) 400 units PO DAILY [facility] Last Admin: 12/02/17 09:10 Dose: 400 units Cyclosporine (Restasis) 1 each EYEBOTH BID [facility] Last Admin: 12/02/17 09:15 Dose: 1 drop Duloxetine HCl (Cymbalta) 60 mg PO DAILY [facility] Last Admin: 12/02/17 09:12 Dose: 60 mg Ferrous Sulfate (Ferrous Sulfate) 325 mg PO TIDMEALS [facility] Last Admin: 12/02/17 09:11 Dose: 325 mg Guaifenesin/Phenylephrine HCl (Robitussin Dm) 5 ml PO Q6H PRN PRN Reason: Cough Heparin Sodium (Porcine) (Heparin Sodium) 5,000 units SUBCUT Q8HR [facility] Last Admin: 12/02/17 06:13 Dose: 5,000 units Piperacillin Sod/Tazobactam (Sod 3.375 gm/ Sodium Chloride) 100 mls @ 200 mls/ hr IV Q6H [facility] Last Infusion: 12/02/17 08:16 Dose: Infused Vancomycin HCl 750 mg/Vancomycin HCl 500 mg/ Sodium Chloride 250 mls @ 166.667 mls/hr IV Q8H [facility] Last Admin: 12/02/17 04:34 Dose: 166.667 mls/hr Sodium Chloride (Normal Saline) 1,000 mls @ 100 mls/hr IV ASDIRECTED [facility] Last Admin: 12/02/17 09:57 Dose: 100 mls/hr Ibuprofen (Motrin) 400 mg PO Q6H PRN PRN Reason: pain, fever Insulin Aspart (Novolog) 0 unit SUBCUT ACBED [facility]; Protocol Last Admin: 12/02/17 09:08 Dose: 2 units Lisinopril (Prinivil) 2.5 mg PO DAILY [facility] Last Admin: 12/02/17 09:12 Dose: 2.5 mg Midodrine (Midodrine) 5 mg PO BID [facility] Last Admin: 12/02/17 09:10 Dose: 5 mg Morphine Sulfate (Morphine) 1 mg IVPUSH Q4H PRN PRN Reason: SEVERE PAIN Last Admin: 12/01/17 14:20 Dose: 1 mg Multivitamins (Thera) 1 each PO DAILY [facility] Last Admin: 12/02/17 09:10 Dose: 1 each Ondansetron HCl (Zofran) 4 mg IV Q6H PRN PRN Reason: Nausea/Vomiting Last Admin: 12/02/17 09:06 Dose: 4 mg Oxybutynin Chloride (Oxybutynin Er) 5 mg PO BEDTIME [facility] Last Admin: 12/01/17 21:25 Dose: 5 mg Oxycodone HCl (Oxycodone) 5 mg PO Q4H PRN PRN Reason: MODERATE PAIN Last Admin: 12/02/17 09:13 Dose: 5 mg Pantoprazole Sodium (Protonix) 40 mg PO BIDAC [facility] Last Admin: 12/02/17 06:19 Dose: 40 mg Prednisone (Prednisone) 5 mg PO DAILY@0800 [facility] Last Admin: 12/02/17 09:11 Dose: 5 mg Pregabalin (Lyrica) 150 mg PO BEDTIME PRN PRN Reason: restless leg Ropinirole HCl (Requip) 1 mg PO BEDTIME [facility] Last Admin: 12/01/17 21:25 Dose: 1 mg Sodium Chloride (Saline Flush) 10 ml FLUSH ASDIRECTED PRN PRN Reason: Keep Vein Open Sodium Phosphate (Neutra-Phos) 250 mg PO QID [facility] Last Admin: 12/02/17 09:10 Dose: 250 mg Trazodone HCl (Trazodone) 50 mg PO BEDTIME PRN PRN Reason: Insomnia Vancomycin HCl (Pharmacy To Dose - Vancomycin) 1 dose .XX ASDIRECTED [facility] Zolpidem Tartrate (Ambien) 5 mg PO BEDTIME PRN PRN Reason: Sleep Discontinued Medications Oxycodone/Acetaminophen (Percocet 325-5 Mg) 1 tab PO Q4H PRN PRN Reason: moderate Pain Last Admin: 12/02/17 09:14 Dose: 1 tab - Exam General: Alert, Oriented Neck: Supple Lungs: Normal Respiratory Effort, Rhonchi (Bilateral) Cardiovascular: Regular Rate, Regular Rhythm GI/Abdominal Exam: Normal Bowel Sounds, Soft, Non-Tender Extremities: No Pedal Edema Skin: Other (Erythematous area on the right posterior thigh unchanged. Left anterior thigh erythema has improved.) - Problem List & Annotations (1) Cellulitis of lower extremity SNOMED Code(s): 887287536 Code(s): L03.119 - CELLULITIS OF UNSPECIFIED PART OF LIMB Status: Acute Current Visit: No - Problem List Review Problem List Initiated/Reviewed/Updated: Yes - My Orders Last 24 Hours: My Active Orders 12/01/17 11:46 Blood Culture x2 Reflex Set [OM.PC] Stat 12/01/17 11:47 Morphine 1 mg IVPUSH Q4H PRN 12/01/17 11:50 Glucose [Blood Glucose Check, Bedside] [RC] QIDACANDBED 12/01/17 11:57 CULTURE BLOOD [BC] Stat 12/01/17 12:00 Piperacillin/Tazobactam [Zosyn] 3.375 gm Sodium Chloride 0.9% [Normal Saline] 100 ml IV Q6H Vancomycin Pharmacy to Dose [Pharmacy to Dose - Vancomycin] 1 dose .XX ASDIRECTED 12/01/17 12:03 CULTURE BLOOD [BC] Stat 12/01/17 13:00 Vancomycin HCl [Vancomycin 750mg AddVial] 750 mg Vancomycin 500 mg Sodium Chloride 0.9% [Normal Saline] 250 ml IV Q8H 12/01/17 13:27 Dextromethorphan/guaiFENesin [Robitussin DM] 5 ml PO Q6H PRN Pregabalin [Lyrica] 150 mg PO BEDTIME PRN traZODone 50 mg PO BEDTIME PRN 12/01/17 13:39 Ondansetron [Zofran] 4 mg IV Q6H PRN 12/01/17 14:06 oxyCODONE 5 mg PO Q4H PRN 12/01/17 14:19 Patient Status [ADT] Routine Oxygen Therapy [RC] .PRN Up ad Janeth [RC] ASDIRECTED VTE/DVT Education [RC] , Vital Signs [RC] 03,07,11,15,19,23 Acetaminophen [Tylenol] 650 mg PO Q4H PRN Sodium Chloride 0.9% [Saline Flush] 10 ml FLUSH ASDIRECTED PRN Zolpidem [Ambien] 5 mg PO BEDTIME PRN Peripheral IV Insertion Adult [OM.PC] Routine Saline Lock Insert [OM.PC] Routine Resuscitation Status Routine 12/01/17 14:20 Antiembolic Hose [OM.PC] Per Unit Routine 12/01/17 14:21 Peripheral IV Care [RC] 0812/01/17 17:00 Insulin Aspart [NovoLOG] See Protocol SUBCUT ACBED Pantoprazole [ProTONIX] 40 mg PO BIDAC Phosphorus #1 [Neutra-Phos] 250 mg PO QID 12/01/17 18:00 Ascorbic Acid [Vitamin C] 250 mg PO TIDMEALS Ferrous Sulfate 325 mg PO TIDMEALS 12/01/17 19:42 Ibuprofen [Motrin] 400 mg PO Q6H PRN 12/01/17 19:45 Sodium Chloride 0.9% [Normal Saline] 1,000 ml IV ASDIRECTED 12/01/17 21:00 Midodrine 5 mg PO BID Oxybutynin [Oxybutynin ER] 5 mg PO BEDTIME cycloSPORINE [Restasis] 1 each EYEBOTH BID rOPINIRole [Requip] 1 mg PO BEDTIME 12/01/17 22:00 Heparin Sodium 5,000 units SUBCUT Q8HR 12/02/17 08:00 predniSONE 5 mg PO DAILY@0800 12/02/17 09:00 Cholecalciferol (Vitamin D3) [Vitamin D3] 400 units PO DAILY DULoxetine [Cymbalta] 60 mg PO DAILY Lisinopril [Prinivil] 2.5 mg PO DAILY Multivitamins,Therapeutic [Thera] 1 each PO DAILY 12/02/17 12:31 Chest 1V Frontal [CR] Routine 12/02/17 20:30 VANCOMYCIN TROUGH [CHEM] Timed 12/02/17 Lunch Clear Liquid Diet [DIET] - Plan Plan:: The patient is a 42-year-old lady with a history of rheumatoid arthritis, chronic kidney disease stage III, diabetes, immunocompromise status of on chronic steroids. Right lower extremity area of cellulitis, left lower extremity cellulitis. Both area appears to have some induration but no abscess. This might represent folliculitis in origin or insect bite. Pending blood culture I will obtain a chest x-ray given the cough and recent diagnosis and treatment for pneumonia Continue treatment with vancomycin and Zosyn Diabetes Hold metformin Use supplemental insulin as needed Chronic kidney disease stage III We'll monitor electrolytes and renal function test The patient has a history of hypotension and has been on midodrine in the past Also on MIKE inhibitor low dose for renal protection Monitor vital signs Pain control will be with Tylenol, oxycodone for moderate pain, IV morphine for severe pain DVT prophylaxis with subcutaneous heparin
[2017-12-02] MEDS: Ibuprofen 400 MG Tab PO PRN (18:25)
[2017-12-02] MEDS: Oxybutynin 5 MG Tab.ER PO SCH (20:51)
[2017-12-02] MEDS: rOPINIRole 2 MG Tab PO SCH (20:51)
[2017-12-03] MEDS: Piperacillin/Tazobactam 3.375 GM in Sodium Chloride 0.9% 100 ML IV SCH ×5 (00:16→23:42)
[2017-12-03] MEDS: oxyCODONE 5 MG Tab PO PRN ×2 (05:32→19:09)
[2017-12-03] MEDS: Heparin Sodium 5,000 Units/ML Vial SUBCUT SCH ×3 (05:35→23:44)
[2017-12-03] MEDS: Pantoprazole 40 MG Tab.CR PO SCH ×2 (05:37→17:30)
[2017-12-03] MEDS: Ondansetron 4 MG/2 ML SDV IV PRN ×2 (05:45→17:17)
[2017-12-03] MEDS: Insulin Aspart 100 Units/ML 3 ML Pen SUBCUT SCH ×4 (08:32→20:33)
[2017-12-03] MEDS: Sodium Chloride 0.9% 1,000 ML IV SCH ×2 (08:40→19:06)
[2017-12-03] MEDS: Ascorbic Acid 500 MG Tab PO SCH ×3 (09:00→17:22)
[2017-12-03] MEDS: predniSONE 5 MG Tab PO SCH (09:00)
[2017-12-03] MEDS: Ferrous Sulfate 325 MG Tab PO SCH ×3 (09:00→17:22)
[2017-12-03] MEDS: DULoxetine 30 MG Cap PO SCH (09:02)
[2017-12-03] MEDS: Midodrine 2.5 MG Tab PO SCH ×2 (09:02→20:35)
[2017-12-03] MEDS: Cholecalciferol (Vitamin D3) 400 Unit Tab PO SCH (09:03)
[2017-12-03] MEDS: Phosphorus #1 250 MG Tab PO SCH ×4 (09:03→20:35)
[2017-12-03] MEDS: Multivitamins,Therapeutic Tab PO SCH (09:03)
[2017-12-03] MEDS: Ibuprofen 400 MG Tab PO PRN (09:03)
[2017-12-03] MEDS: Lisinopril 5 MG Tab PO SCH (09:04)
[2017-12-03] MEDS: cycloSPORINE Ophth Drops U/D Box of 30 EYEBOTH SCH ×2 (09:14→20:33)
--- NOTE | 2017-12-03 12:28 | PCM.PN ---
- General Info Date of Service: 12/03/17 Admission Dx/Problem (Free Text): Admission Diagnosis/Problem Admission Diagnosis/Problem Cellulitis Subjective Update: Continues to have a moderate to severe pain in the right lower extremity where that the redness is present. The redness has enlarged yesterday. The pain is worse with touch. She still has coughing. No shortness of breath. No abdominal pain. Functional Status: Denies: Pain Controlled - Review of Systems General: Reports: Fever, Weakness Pulmonary: Reports: Cough. Denies: Shortness of Breath, Sputum Cardiovascular: Denies: Chest Pain Gastrointestinal: Denies: Abdominal Pain Genitourinary: Denies: Dysuria Neurological: Denies: Confusion - Patient Data Vitals - Most Recent: Last Vital Signs Temp 36.8 C 12/03/17 07:00 Pulse 97 12/03/17 07:00 Resp 20 12/03/17 07:00 BP 123/65 12/03/17 09:04 Pulse Ox 96 12/03/17 07:00 Weight - Most Recent: 117.118 kg I&O - Last 24 Hours: Intake & Output 12/02/17 12/03/17 12/03/17 22:59 06:59 14:59 Intake Total 2711 1148 Output Total 1475 700 Balance 1236 448 Lab Results Last 24 Hours: Laboratory Results - last 24 hr 12/02/17 12/02/17 12/02/17 Range/Units 11:55 17:00 20:19 POC Glucose 151 H 161 H 166 H (70-105) mg/dl Vancomycin Trough (10-15) ug/ml 12/02/17 12/03/17 12/03/17 Range/Units 21:00 07:45 12:06 POC Glucose 133 H 149 H (70-105) mg/dl Vancomycin Trough 36.1 H (10-15) ug/ml Qasim Results Last 24 Hours: Microbiology 12/01/17 11:57 Aerobic Blood Culture - Preliminary Blood - Venous NO GROWTH AFTER 2 DAYS Anaerobic Blood Culture - Preliminary NO GROWTH AFTER 2 DAYS 12/01/17 12:03 Aerobic Blood Culture - Preliminary Blood - Venous - Lab Draw NO GROWTH AFTER 2 DAYS Anaerobic Blood Culture - Preliminary NO GROWTH AFTER 2 DAYS Med Orders - Current: Current Medications Acetaminophen (Tylenol) 650 mg PO Q4H PRN PRN Reason: Pain (Mild 1-3)/fever Last Admin: 12/01/17 18:23 Dose: 650 mg Ascorbic Acid (Vitamin C) 250 mg PO TIDMEALS [facility] Last Admin: 12/03/17 09:00 Dose: 250 mg Cholecalciferol (Vitamin D3) 400 units PO DAILY [facility] Last Admin: 12/03/17 09:03 Dose: 400 units Cyclosporine (Restasis) 1 each EYEBOTH BID [facility] Last Admin: 12/03/17 09:14 Dose: 1 drop Duloxetine HCl (Cymbalta) 60 mg PO DAILY [facility] Last Admin: 12/03/17 09:02 Dose: 60 mg Ferrous Sulfate (Ferrous Sulfate) 325 mg PO TIDMEALS [facility] Last Admin: 12/03/17 09:00 Dose: 325 mg Guaifenesin/Phenylephrine HCl (Robitussin Dm) 5 ml PO Q6H PRN PRN Reason: Cough Heparin Sodium (Porcine) (Heparin Sodium) 5,000 units SUBCUT Q8HR [facility] Last Admin: 12/03/17 05:35 Dose: 5,000 units Piperacillin Sod/Tazobactam (Sod 3.375 gm/ Sodium Chloride) 100 mls @ 200 mls/ hr IV Q6H [facility] Last Admin: 12/03/17 05:34 Dose: 200 mls/hr Sodium Chloride (Normal Saline) 1,000 mls @ 100 mls/hr IV ASDIRECTED [facility] Last Admin: 12/03/17 08:40 Dose: 100 mls/hr Ibuprofen (Motrin) 400 mg PO Q6H PRN PRN Reason: pain, fever Last Admin: 12/03/17 09:03 Dose: 400 mg Insulin Aspart (Novolog) 0 unit SUBCUT ACBED [facility]; Protocol Last Admin: 12/03/17 08:32 Dose: Not Given Lisinopril (Prinivil) 2.5 mg PO DAILY [facility] Last Admin: 12/03/17 09:04 Dose: 2.5 mg Midodrine (Midodrine) 5 mg PO BID [facility] Last Admin: 12/03/17 09:02 Dose: 5 mg Morphine Sulfate (Morphine) 1 mg IVPUSH Q4H PRN PRN Reason: SEVERE PAIN Last Admin: 12/01/17 14:20 Dose: 1 mg Multivitamins (Thera) 1 each PO DAILY [facility] Last Admin: 12/03/17 09:03 Dose: 1 each Ondansetron HCl (Zofran) 4 mg IV Q6H PRN PRN Reason: Nausea/Vomiting Last Admin: 12/03/17 05:45 Dose: 4 mg Oxybutynin Chloride (Oxybutynin Er) 5 mg PO BEDTIME [facility] Last Admin: 12/02/17 20:51 Dose: 5 mg Oxycodone HCl (Oxycodone) 5 mg PO Q4H PRN PRN Reason: MODERATE PAIN Last Admin: 12/03/17 05:32 Dose: 5 mg Pantoprazole Sodium (Protonix) 40 mg PO BIDAC [facility] Last Admin: 12/03/17 05:37 Dose: 40 mg Prednisone (Prednisone) 5 mg PO DAILY@0800 [facility] Last Admin: 12/03/17 09:00 Dose: 5 mg Pregabalin (Lyrica) 150 mg PO BEDTIME PRN PRN Reason: restless leg Ropinirole HCl (Requip) 1 mg PO BEDTIME [facility] Last Admin: 12/02/17 20:51 Dose: 1 mg Sodium Chloride (Saline Flush) 10 ml FLUSH ASDIRECTED PRN PRN Reason: Keep Vein Open Sodium Phosphate (Neutra-Phos) 250 mg PO QID [facility] Last Admin: 12/03/17 09:03 Dose: 250 mg Trazodone HCl (Trazodone) 50 mg PO BEDTIME PRN PRN Reason: Insomnia Vancomycin HCl (Pharmacy To Dose - Vancomycin) 1 dose .XX ASDIRECTED [facility] Zolpidem Tartrate (Ambien) 5 mg PO BEDTIME PRN PRN Reason: Sleep Discontinued Medications Vancomycin HCl 750 mg/Vancomycin HCl 500 mg/ Sodium Chloride 250 mls @ 166.667 mls/hr IV Q8H [facility] Last Admin: 12/02/17 21:33 Dose: Not Given Oxycodone/Acetaminophen (Percocet 325-5 Mg) 1 tab PO Q4H PRN PRN Reason: moderate Pain Last Admin: 12/02/17 09:14 Dose: 1 tab - Exam General: Alert, Oriented Neck: Supple Lungs: Clear to Auscultation, Normal Respiratory Effort Cardiovascular: Regular Rate, Regular Rhythm GI/Abdominal Exam: Normal Bowel Sounds, Soft, Non-Tender Skin: Warm, Other (Right posterior thigh erythema has enlarged yesterday but stable since, left anterior thigh erythema has improved) Neurological: No New Focal Deficit Psy/Mental Status: Alert, Normal Affect, Normal Mood - Problem List & Annotations (1) Cellulitis of lower extremity SNOMED Code(s): 352835824 Code(s): L03.119 - CELLULITIS OF UNSPECIFIED PART OF LIMB Status: Acute Current Visit: No - Problem List Review Problem List Initiated/Reviewed/Updated: Yes - My Orders Last 24 Hours: My Active Orders 12/02/17 Lunch Clear Liquid Diet [DIET] 12/03/17 10:59 BASIC METABOLIC PANEL,BMP [CHEM] Routine CBC WITH AUTO DIFF [HEME] Routine 12/03/17 13:00 VANCOMYCIN RANDOM [CHEM] Timed - Plan Plan:: The patient is a 42-year-old lady with a history of rheumatoid arthritis, chronic kidney disease stage III, diabetes, immunocompromise status of on chronic steroids. Right lower extremity area of cellulitis, left lower extremity cellulitis. Both area appears to have some induration but no abscess. This might represent folliculitis in origin or insect bite. Blood culture pending Pneumonia seen on chest x-ray 12/02/17 Continue treatment with vancomycin and Zosyn Diabetes Hold metformin Use supplemental insulin as needed Chronic kidney disease stage III We'll monitor electrolytes and renal function test The patient has a history of hypotension and has been on midodrine in the past Also on MIKE inhibitor low dose for renal protection Monitor vital signs Pain control will be with Tylenol, oxycodone for moderate pain, IV morphine for severe pain DVT prophylaxis with subcutaneous heparin
[2017-12-03 13:24] LABS: ANION GAP 15.6
[2017-12-03] MEDS: rOPINIRole 2 MG Tab PO SCH (20:35)
[2017-12-03] MEDS: Oxybutynin 5 MG Tab.ER PO SCH (20:35)
[2017-12-04] MEDS: Pregabalin 75 MG Cap PO PRN ×2 (02:50→20:58)
[2017-12-04] MEDS: Piperacillin/Tazobactam 3.375 GM in Sodium Chloride 0.9% 100 ML IV SCH ×3 (05:32→17:49)
[2017-12-04] MEDS: Heparin Sodium 5,000 Units/ML Vial SUBCUT SCH ×3 (05:34→23:35)
[2017-12-04] MEDS: Pantoprazole 40 MG Tab.CR PO SCH ×2 (05:35→16:37)
[2017-12-04] MEDS: Sodium Chloride 0.9% 1,000 ML IV SCH ×2 (05:52→20:51)
[2017-12-04 07:05] LABS: ANION GAP 13.9
[2017-12-04] MEDS ORDERED: VANCOMYCIN HCL IV SCH (09:00)
[2017-12-04] MEDS ORDERED: VANCOMYCIN IV SCH (09:00)
[2017-12-04] MEDS ORDERED: SODIUM CHLORIDE 0.9% IV SCH (09:00)
[2017-12-04] MEDS: oxyCODONE 5 MG Tab PO PRN ×2 (09:36→23:36)
[2017-12-04] MEDS: DULoxetine 30 MG Cap PO SCH (09:38)
[2017-12-04] MEDS: Lisinopril 5 MG Tab PO SCH (09:39)
[2017-12-04] MEDS: Ascorbic Acid 500 MG Tab PO SCH (09:40)
[2017-12-04] MEDS: Midodrine 2.5 MG Tab PO SCH ×2 (09:40→20:58)
[2017-12-04] MEDS: Ferrous Sulfate 325 MG Tab PO SCH (09:40)
[2017-12-04] MEDS: Phosphorus #1 250 MG Tab PO SCH ×4 (09:40→20:58)
[2017-12-04] MEDS: predniSONE 5 MG Tab PO SCH (09:40)
[2017-12-04] MEDS: Multivitamins,Therapeutic Tab PO SCH (09:40)
[2017-12-04] MEDS: Cholecalciferol (Vitamin D3) 400 Unit Tab PO SCH (09:40)
[2017-12-04] MEDS: cycloSPORINE Ophth Drops U/D Box of 30 EYEBOTH SCH ×2 (09:43→21:27)
[2017-12-04] MEDS: Insulin Aspart 100 Units/ML 3 ML Pen SUBCUT SCH ×4 (10:06→21:24)
--- NOTE | 2017-12-04 10:45 | PCM.PN ---
- General Info Date of Service: 12/04/17 Subjective Update: Continues to have a moderate to severe pain in the right lower extremity where that the redness is present. The redness has further enlarged. The pain is worse with touch. She still has coughing. No shortness of breath. No abdominal pain. nausea is better no more fever - Review of Systems General: Reports: Weakness. Denies: Fever Pulmonary: Denies: Shortness of Breath Cardiovascular: Denies: Chest Pain Gastrointestinal: Denies: Abdominal Pain - Patient Data Vitals - Most Recent: Last Vital Signs Temp 36.7 C 12/03/17 19:30 Pulse 96 12/03/17 19:30 Resp 16 12/03/17 19:30 BP 142/86 H 12/03/17 19:30 Pulse Ox 98 12/03/17 19:30 Weight - Most Recent: 117.118 kg I&O - Last 24 Hours: Intake & Output 12/03/17 12/04/17 12/04/17 22:59 06:59 14:59 Intake Total 547 1628 449 Output Total 400 Balance 547 1228 449 Lab Results Last 24 Hours: Laboratory Results - last 24 hr 12/03/17 12/03/17 12/03/17 Range/Units 12:06 13:00 13:00 WBC 7.6 (5.0-10.0) 10^3/uL RBC 3.53 L (4.2-5.4) 10^6/uL Hgb 10.2 L (12.0-16.0) g/dL Hct 32.7 L (37.0-47.0) % MCV 92.6 (80-100) fL MCH 28.9 (27.0-34.0) pg MCHC 31.2 L (33.0-35.0) g/dL Plt Count 196 (150-450) 10^3/uL Neut % (Auto) 87.3 H (42.2-75.2) % Lymph % (Auto) 8.3 L (20.5-50.1) % Cocke % (Auto) 2.9 (2-8) % Eos % (Auto) 1.4 (1.0-3.0) % Baso % (Auto) 0.1 (0.0-1.0) % Sodium (135-145) mmol/L Potassium (3.6-5.0) mmol/L Chloride (101-111) mmol/L Carbon Dioxide (21.0-31.0) mmol/L Anion Gap BUN (7-18) mg/dL Creatinine (0.6-1.3) mg/dL Est Cr Clr Drug Dosing mL/min Estimated GFR (MDRD) Glucose (74-105) mg/dL POC Glucose 149 H (70-105) mg/dl Calcium (8.4-10.2) mg/dl Random Vancomycin 25.0 ug/mL 12/03/17 12/03/17 12/03/17 Range/Units 13:00 17:08 20:32 WBC (5.0-10.0) 10^3/uL RBC (4.2-5.4) 10^6/uL Hgb (12.0-16.0) g/dL Hct (37.0-47.0) % MCV (80-100) fL MCH (27.0-34.0) pg MCHC (33.0-35.0) g/dL Plt Count (150-450) 10^3/uL Neut % (Auto) (42.2-75.2) % Lymph % (Auto) (20.5-50.1) % Cocke % (Auto) (2-8) % Eos % (Auto) (1.0-3.0) % Baso % (Auto) (0.0-1.0) % Sodium 138 (135-145) mmol/L Potassium 4.6 (3.6-5.0) mmol/L Chloride 107 (101-111) mmol/L Carbon Dioxide 20.0 L (21.0-31.0) mmol/L Anion Gap 15.6 BUN 39 H (7-18) mg/dL Creatinine 2.2 H D (0.6-1.3) mg/dL Est Cr Clr Drug Dosing 33.86 mL/min Estimated GFR (MDRD) 24 Glucose 165 H (74-105) mg/dL POC Glucose 150 H 148 H (70-105) mg/dl Calcium 8.1 L (8.4-10.2) mg/dl Random Vancomycin ug/mL 12/04/17 12/04/17 12/04/17 Range/Units 06:30 06:30 06:30 WBC 7.6 (5.0-10.0) 10^3/uL RBC 3.55 L (4.2-5.4) 10^6/uL Hgb 10.1 L (12.0-16.0) g/dL Hct 32.3 L (37.0-47.0) % MCV 91.0 (80-100) fL MCH 28.5 (27.0-34.0) pg MCHC 31.3 L (33.0-35.0) g/dL Plt Count 198 (150-450) 10^3/uL Neut % (Auto) 86.3 H (42.2-75.2) % Lymph % (Auto) 9.6 L (20.5-50.1) % Cocke % (Auto) 2.4 (2-8) % Eos % (Auto) 1.7 (1.0-3.0) % Baso % (Auto) 0.0 (0.0-1.0) % Sodium 139 (135-145) mmol/L Potassium 3.9 (3.6-5.0) mmol/L Chloride 109 (101-111) mmol/L Carbon Dioxide 20.0 L (21.0-31.0) mmol/L Anion Gap 13.9 BUN 37 H (7-18) mg/dL Creatinine 2.2 H (0.6-1.3) mg/dL Est Cr Clr Drug Dosing 33.86 mL/min Estimated GFR (MDRD) 24 Glucose 108 H (74-105) mg/dL POC Glucose (70-105) mg/dl Calcium 8.0 L (8.4-10.2) mg/dl Random Vancomycin 16.0 ug/mL 12/04/17 Range/Units 07:48 WBC (5.0-10.0) 10^3/uL RBC (4.2-5.4) 10^6/uL Hgb (12.0-16.0) g/dL Hct (37.0-47.0) % MCV (80-100) fL MCH (27.0-34.0) pg MCHC (33.0-35.0) g/dL Plt Count (150-450) 10^3/uL Neut % (Auto) (42.2-75.2) % Lymph % (Auto) (20.5-50.1) % Cocke % (Auto) (2-8) % Eos % (Auto) (1.0-3.0) % Baso % (Auto) (0.0-1.0) % Sodium (135-145) mmol/L Potassium (3.6-5.0) mmol/L Chloride (101-111) mmol/L Carbon Dioxide (21.0-31.0) mmol/L Anion Gap BUN (7-18) mg/dL Creatinine (0.6-1.3) mg/dL Est Cr Clr Drug Dosing mL/min Estimated GFR (MDRD) Glucose (74-105) mg/dL POC Glucose 103 (70-105) mg/dl Calcium (8.4-10.2) mg/dl Random Vancomycin ug/mL Qasim Results Last 24 Hours: Microbiology 12/01/17 11:57 Aerobic Blood Culture - Preliminary Blood - Venous NO GROWTH AFTER 2 DAYS Anaerobic Blood Culture - Preliminary NO GROWTH AFTER 2 DAYS 12/01/17 12:03 Aerobic Blood Culture - Preliminary Blood - Venous - Lab Draw NO GROWTH AFTER 2 DAYS Anaerobic Blood Culture - Preliminary NO GROWTH AFTER 2 DAYS Med Orders - Current: Current Medications Acetaminophen (Tylenol) 650 mg PO Q4H PRN PRN Reason: Pain (Mild 1-3)/fever Last Admin: 12/01/17 18:23 Dose: 650 mg Cyclosporine (Restasis) 1 each EYEBOTH BID [facility] Last Admin: 12/04/17 09:43 Dose: 1 drop Duloxetine HCl (Cymbalta) 60 mg PO DAILY [facility] Last Admin: 12/04/17 09:38 Dose: 60 mg Guaifenesin/Phenylephrine HCl (Robitussin Dm) 5 ml PO Q6H PRN PRN Reason: Cough Heparin Sodium (Porcine) (Heparin Sodium) 5,000 units SUBCUT Q8HR [facility] Last Admin: 12/04/17 05:34 Dose: 5,000 units Piperacillin Sod/Tazobactam (Sod 3.375 gm/ Sodium Chloride) 100 mls @ 200 mls/ hr IV Q6H [facility] Last Admin: 12/04/17 05:32 Dose: 200 mls/hr Sodium Chloride (Normal Saline) 1,000 mls @ 100 mls/hr IV ASDIRECTED [facility] Last Admin: 12/04/17 05:52 Dose: 100 mls/hr Vancomycin HCl 750 mg/Vancomycin HCl 500 mg/ Sodium Chloride 250 mls @ 166.667 mls/hr IV Q24H [facility] Last Admin: 12/04/17 10:29 Dose: 166.667 mls/hr Metronidazole 500 mg/ Premix 100 mls @ 100 mls/hr IV Q8H [facility] Insulin Aspart (Novolog) 0 unit SUBCUT ACBED [facility]; Protocol Last Admin: 12/04/17 10:06 Dose: Not Given Midodrine (Midodrine) 5 mg PO BID [facility] Last Admin: 12/04/17 09:40 Dose: 5 mg Morphine Sulfate (Morphine) 1 mg IVPUSH Q4H PRN PRN Reason: SEVERE PAIN Last Admin: 12/01/17 14:20 Dose: 1 mg Multivitamins (Thera) 1 each PO DAILY [facility] Last Admin: 12/04/17 09:40 Dose: 1 each Ondansetron HCl (Zofran) 4 mg IV Q6H PRN PRN Reason: Nausea/Vomiting Last Admin: 12/03/17 17:17 Dose: 4 mg Oxybutynin Chloride (Oxybutynin Er) 5 mg PO BEDTIME [facility] Last Admin: 12/03/17 20:35 Dose: 5 mg Oxycodone HCl (Oxycodone) 5 mg PO Q4H PRN PRN Reason: MODERATE PAIN Last Admin: 12/04/17 09:36 Dose: 5 mg Pantoprazole Sodium (Protonix) 40 mg PO BIDAC [facility] Last Admin: 12/04/17 05:35 Dose: 40 mg Prednisone (Prednisone) 5 mg PO DAILY@0800 [facility] Last Admin: 12/04/17 09:40 Dose: 5 mg Pregabalin (Lyrica) 150 mg PO BEDTIME PRN PRN Reason: restless leg Last Admin: 12/04/17 02:50 Dose: 150 mg Ropinirole HCl (Requip) 1 mg PO BEDTIME [facility] Last Admin: 12/03/17 20:35 Dose: 1 mg Sodium Chloride (Saline Flush) 10 ml FLUSH ASDIRECTED PRN PRN Reason: Keep Vein Open Sodium Phosphate (Neutra-Phos) 250 mg PO QID [facility] Last Admin: 12/04/17 09:40 Dose: 250 mg Trazodone HCl (Trazodone) 50 mg PO BEDTIME PRN PRN Reason: Insomnia Vancomycin HCl (Pharmacy To Dose - Vancomycin) 1 dose .XX ASDIRECTED [facility] Zolpidem Tartrate (Ambien) 5 mg PO BEDTIME PRN PRN Reason: Sleep Discontinued Medications Ascorbic Acid (Vitamin C) 250 mg PO TIDMEALS [facility] Last Admin: 12/04/17 09:40 Dose: 250 mg Cholecalciferol (Vitamin D3) 400 units PO DAILY [facility] Last Admin: 12/04/17 09:40 Dose: 400 units Ferrous Sulfate (Ferrous Sulfate) 325 mg PO TIDMEALS [facility] Last Admin: 12/04/17 09:40 Dose: 325 mg Vancomycin HCl 750 mg/Vancomycin HCl 500 mg/ Sodium Chloride 250 mls @ 166.667 mls/hr IV Q8H [facility] Last Admin: 12/02/17 21:33 Dose: Not Given Ibuprofen (Motrin) 400 mg PO Q6H PRN PRN Reason: pain, fever Last Admin: 12/03/17 09:03 Dose: 400 mg Lisinopril (Prinivil) 2.5 mg PO DAILY [facility] Last Admin: 12/04/17 09:39 Dose: Not Given Oxycodone/Acetaminophen (Percocet 325-5 Mg) 1 tab PO Q4H PRN PRN Reason: moderate Pain Last Admin: 12/02/17 09:14 Dose: 1 tab - Exam General: Alert, Oriented Neck: Supple Lungs: Clear to Auscultation, Normal Respiratory Effort Cardiovascular: Regular Rate, Regular Rhythm GI/Abdominal Exam: Normal Bowel Sounds, Soft, Non-Tender Extremities: No Pedal Edema Skin: Warm, Other (r. le erythema around thigh is worse, enlarged, no palpable abscess) - Problem List & Annotations (1) Cellulitis of lower extremity SNOMED Code(s): 579617841 Code(s): L03.119 - CELLULITIS OF UNSPECIFIED PART OF LIMB Status: Acute Current Visit: No (2) RODRI (acute kidney injury) SNOMED Code(s): 55839903 Code(s): N17.9 - ACUTE KIDNEY FAILURE, UNSPECIFIED Status: Acute Current Visit: No - Problem List Review Problem List Initiated/Reviewed/Updated: Yes - My Orders Last 24 Hours: My Active Orders 12/04/17 09:00 Vancomycin HCl [Vancomycin 750mg AddVial] 750 mg Vancomycin 500 mg Sodium Chloride 0.9% [Normal Saline] 250 ml IV Q24H 12/04/17 09:37 CULTURE WOUND + SMEAR [RM] Routine 12/04/17 10:00 metroNIDAZOLE/Normal Saline [Flagyl 500 MG in NS 100 ML] 500 mg Premix Bag 100 bag IV Q8H 12/04/17 10:25 Lower Leg wo Cont Rt [CT] Routine 12/05/17 05:15 BASIC METABOLIC PANEL,BMP [CHEM] AM CBC WITH AUTO DIFF [HEME] AM - Plan Plan:: The patient is a 42-year-old lady with a history of rheumatoid arthritis, chronic kidney disease stage III, diabetes, immunocompromise status of on chronic steroids. Right lower extremity area of cellulitis, left lower extremity cellulitis. h/o MRSA skin infection Both area appears to have some induration but no abscess. This might represent folliculitis in origin or insect bite. Blood culture pending - neg for now try to obtain wound cx. ct to eval for abscess add flagyl cont vanc, zosyn possible Pneumonia seen on chest x-ray 12/02/17 Continue treatment with vancomycin and Zosyn RODRI with h/o Chronic kidney disease stage III increase IVF stop patito inhibitor recheck in AM adjust vanc dose Diabetes Hold metformin Use supplemental insulin as needed Pain control will be with Tylenol, oxycodone for moderate pain, IV morphine for severe pain DVT prophylaxis with subcutaneous heparin
[2017-12-04] MEDS: metroNIDAZOLE/Normal Saline 500 MG in Premix Bag 100 BAG IV SCH ×2 (12:39→18:29)
--- NOTE | 2017-12-04 15:48 | CT ---
CLINICAL HISTORY: 42 year-old 258 pound diabetic female with swelling and redness entire right thigh. Probable cellulitis but rule out abnormal suppurative fluid collection or abscess in this obese miya ent with history of "leg wounds, sepsis and osteomyelitis". SCAN TECHNIQUE: Volume acquisition of data from an unenhanced scan pelvis and both lower extremities to the knees obtained while the patient was lying supine on the Siemens multislice CT scanner [place], [place]. All data archived in the PACS system for storage, reformatt ing axial/sagittal/coronal planes and study. INTERPRETATION: *Asymmetric subcutaneous edema with overlying skin thickening (cellulitis or inflamma tion) primarily involving the anterolateral and posterolateral proximal-mid right thigh. No foreign bodies or subcutaneous emphysema. No appreciable involvement of the underlying musculature. No abnormal fluid-filled collections. Homogeneous normal bone density of the underlying right femur without sign of inflammatory periostiti s or osteomyelitis. No long bone fracture or dislocation right hip/knee. CONCLUSION: Probable cellulitis right thigh. No foreign body, abscess or signs of osteomyelitis demonstrated with this diagnostic modality.
[2017-12-04] MEDS: rOPINIRole 2 MG Tab PO SCH (20:59)
[2017-12-04] MEDS: Oxybutynin 5 MG Tab.ER PO SCH (20:59)
[2017-12-04] MEDS: Morphine 2 MG/ML Syringe IVPUSH PRN (21:13)
[2017-12-05] MEDS: Piperacillin/Tazobactam 3.375 GM in Sodium Chloride 0.9% 100 ML IV SCH (00:01)
--- NOTE | 2017-12-05 00:14 | PCM.DCSUM1 ---
Discharge Summary - Hospital Course Free Text/Narrative:: The patient is a 42-year-old lady with a history of rheumatoid arthritis, chronic kidney disease stage III, diabetes, immunocompromise status of on chronic steroids. She was recently tx. for pneumonia. presented with left leg anterior thigh small area of erythema and right leg posterior thigh erythema on 12/01/17 Right lower extremity area of cellulitis, left lower extremity cellulitis. h/o MRSA skin infection had high fever on admission that has resolved but continues to have increasing redness on r. thigh Both area appears to have some induration but no abscess. This might represent folliculitis in origin or insect bite. Blood culture pending - neg for now no drainage to obtain wound cx. ct to eval for abscess was negative on 12/04 on flagyl (12/04- cont vanc, zosyn (12/01- nausea has improved possible non resolved Pneumonia seen on chest x-ray 12/02/17 Continue treatment with vancomycin and Zosyn RODRI with h/o Chronic kidney disease stage III cont on IVF hold patito inhibitor adjust vanc dose Diabetes Hold metformin Use supplemental insulin as needed Pain control has been with Tylenol, oxycodone for moderate pain, IV morphine for severe pain Diagnosis: Stroke: No - Discharge Data Discharge Date: 12/05/17 Discharge Disposition: Home, Self-Care 01 Condition: Good - Discharge Diagnosis/Problem(s) (1) Cellulitis of lower extremity SNOMED Code(s): 198794972 ICD Code: L03.119 - CELLULITIS OF UNSPECIFIED PART OF LIMB Status: Acute Current Visit: No (2) RODRI (acute kidney injury) SNOMED Code(s): 76353332 ICD Code: N17.9 - ACUTE KIDNEY FAILURE, UNSPECIFIED Status: Acute Current Visit: No - Patient Instructions Diet: Diabetic Diet Activity: As Tolerated - Discharge Plan Home Medications: Home Meds Ascorbic Acid [Vitamin C] 250 mg PO TIDMEALS 03/08/14 [History] predniSONE 5 mg PO DAILY 03/08/14 [History] Ferrous Sulfate [Iron] 325 mg PO TIDMEALS 09/13/14 [History] Pantoprazole [Pantoprazole Sodium] 40 mg PO BID 09/13/14 [History] DULoxetine [Cymbalta] 60 mg PO DAILY 08/07/15 [History] rOPINIRole [Requip] 1 mg PO BEDTIME 08/13/15 [History] Multivitamin [Multivitamins] 1 each PO DAILY 09/20/15 [History] oxyCODONE HCl/Acetaminophen [Endocet 10-325 mg Tablet] 1 each PO Q4H PRN [History] Oxybutynin [Oxybutynin ER] 5 mg PO BEDTIME 04/14/16 [History] Pregabalin [Lyrica] 150 mg PO BEDTIME PRN 04/14/16 [History] cycloSPORINE [Restasis] 1 drop EYEBOTH BID 04/14/16 [History] Cholecalciferol (Vitamin D3) [Vitamin D3] 400 units PO DAILY 04/13/17 [History] traZODone HCl [Trazodone HCl] 50 mg PO BEDTIME PRN 06/06/17 [History] Diclofenac Epolamine [Flector] 1 patch TOP .Q3DAY 06/16/17 [History] Dextromethorphan/guaiFENesin [Robitussin DM] 5 ml PO Q6H PRN 5 Days #1 cup 11/07 [Rx] Phosphorus #1 [Neutra-Phos] 250 mg PO QID 5 Days #20 tablet 11/07/17 [Rx] Etanercept [Enbrel] 25 mg SQ .TUTH 12/01/17 [History] Midodrine 5 mg PO BID tablet 12/05/17 [Rx] Piperacillin/Tazobactam [Zosyn] 3.375 gm IV Q6H vial 12/05/17 [Rx] Vancomycin Pharmacy to Dose [Pharmacy to Dose - Vancomycin] 1 dose .XX ASDIRECTED each 12/05/17 [Rx] Zolpidem [Ambien] 5 mg PO BEDTIME PRN tablet 12/05/17 [Rx] metroNIDAZOLE/Normal Saline [Flagyl 500 MG in NS 100 ML] 500 mg IV Q8H bag [Rx] - Discharge Summary/Plan Comment DC Time >30 min.: Yes (arranging tx., d/w accepting md dr. Jordan) - General Info Date of Service: 12/05/17 Functional Status: Reports: Pain Controlled, Tolerating Diet - Review of Systems General: Denies: Fever Pulmonary: Denies: Shortness of Breath Cardiovascular: Denies: Chest Pain Gastrointestinal: Reports: Nausea. Denies: Abdominal Pain Neurological: Denies: Confusion - Patient Data Vitals - Most Recent: Last Vital Signs Temp 36.9 C 12/04/17 20:26 Pulse 87 12/04/17 20:26 Resp 20 12/04/17 20:26 BP 134/84 12/04/17 20:26 Pulse Ox 97 12/04/17 20:26 Weight - Most Recent: 117.118 kg I&O - Last 24 hours: Intake & Output 12/04/17 12/04/17 12/05/17 14:59 22:59 06:59 Intake Total 1499 499 Output Total 300 Balance 1199 499 Lab Results - Last 24 hrs: Laboratory Results - last 24 hr 12/04/17 12/04/17 12/04/17 Range/Units 06:30 06:30 06:30 WBC 7.6 (5.0-10.0) 10^3/uL RBC 3.55 L (4.2-5.4) 10^6/uL Hgb 10.1 L (12.0-16.0) g/dL Hct 32.3 L (37.0-47.0) % MCV 91.0 (80-100) fL MCH 28.5 (27.0-34.0) pg MCHC 31.3 L (33.0-35.0) g/dL Plt Count 198 (150-450) 10^3/uL Neut % (Auto) 86.3 H (42.2-75.2) % Lymph % (Auto) 9.6 L (20.5-50.1) % Waldo % (Auto) 2.4 (2-8) % Eos % (Auto) 1.7 (1.0-3.0) % Baso % (Auto) 0.0 (0.0-1.0) % Sodium 139 (135-145) mmol/L Potassium 3.9 (3.6-5.0) mmol/L Chloride 109 (101-111) mmol/L Carbon Dioxide 20.0 L (21.0-31.0) mmol/L Anion Gap 13.9 BUN 37 H (7-18) mg/dL Creatinine 2.2 H (0.6-1.3) mg/dL Est Cr Clr Drug Dosing 33.86 mL/min Estimated GFR (MDRD) 24 Glucose 108 H (74-105) mg/dL POC Glucose (70-105) mg/dl Calcium 8.0 L (8.4-10.2) mg/dl Random Vancomycin 16.0 ug/mL 12/04/17 12/04/17 12/04/17 Range/Units 07:48 11:20 16:59 WBC (5.0-10.0) 10^3/uL RBC (4.2-5.4) 10^6/uL Hgb (12.0-16.0) g/dL Hct (37.0-47.0) % MCV (80-100) fL MCH (27.0-34.0) pg MCHC (33.0-35.0) g/dL Plt Count (150-450) 10^3/uL Neut % (Auto) (42.2-75.2) % Lymph % (Auto) (20.5-50.1) % Waldo % (Auto) (2-8) % Eos % (Auto) (1.0-3.0) % Baso % (Auto) (0.0-1.0) % Sodium (135-145) mmol/L Potassium (3.6-5.0) mmol/L Chloride (101-111) mmol/L Carbon Dioxide (21.0-31.0) mmol/L Anion Gap BUN (7-18) mg/dL Creatinine (0.6-1.3) mg/dL Est Cr Clr Drug Dosing mL/min Estimated GFR (MDRD) Glucose (74-105) mg/dL POC Glucose 103 109 H 146 H (70-105) mg/dl Calcium (8.4-10.2) mg/dl Random Vancomycin ug/mL 12/04/17 Range/Units 21:05 WBC (5.0-10.0) 10^3/uL RBC (4.2-5.4) 10^6/uL Hgb (12.0-16.0) g/dL Hct (37.0-47.0) % MCV (80-100) fL MCH (27.0-34.0) pg MCHC (33.0-35.0) g/dL Plt Count (150-450) 10^3/uL Neut % (Auto) (42.2-75.2) % Lymph % (Auto) (20.5-50.1) % Waldo % (Auto) (2-8) % Eos % (Auto) (1.0-3.0) % Baso % (Auto) (0.0-1.0) % Sodium (135-145) mmol/L Potassium (3.6-5.0) mmol/L Chloride (101-111) mmol/L Carbon Dioxide (21.0-31.0) mmol/L Anion Gap BUN (7-18) mg/dL Creatinine (0.6-1.3) mg/dL Est Cr Clr Drug Dosing mL/min Estimated GFR (MDRD) Glucose (74-105) mg/dL POC Glucose 132 H (70-105) mg/dl Calcium (8.4-10.2) mg/dl Random Vancomycin ug/mL JHONNY Results - Last 24 hrs: Microbiology 12/04/17 16:10 Gram Stain - Final Skin / Skin Scrapings - Thigh, Right 12/01/17 11:57 Aerobic Blood Culture - Preliminary Blood - Venous NO GROWTH AFTER 3 DAYS Anaerobic Blood Culture - Preliminary NO GROWTH AFTER 3 DAYS 12/01/17 12:03 Aerobic Blood Culture - Preliminary Blood - Venous - Lab Draw NO GROWTH AFTER 3 DAYS Anaerobic Blood Culture - Preliminary NO GROWTH AFTER 3 DAYS Med Orders - Current: Current Medications Acetaminophen (Tylenol) 650 mg PO Q4H PRN PRN Reason: Pain (Mild 1-3)/fever Last Admin: 12/01/17 18:23 Dose: 650 mg Cyclosporine (Restasis) 1 each EYEBOTH BID [facility] Last Admin: 12/04/17 21:27 Dose: 1 drop Duloxetine HCl (Cymbalta) 60 mg PO DAILY [facility] Last Admin: 12/04/17 09:38 Dose: 60 mg Guaifenesin/Phenylephrine HCl (Robitussin Dm) 5 ml PO Q6H PRN PRN Reason: Cough Heparin Sodium (Porcine) (Heparin Sodium) 5,000 units SUBCUT Q8HR [facility] Last Admin: 12/04/17 23:35 Dose: 5,000 units Piperacillin Sod/Tazobactam (Sod 3.375 gm/ Sodium Chloride) 100 mls @ 200 mls/ hr IV Q6H [facility] Last Admin: 12/05/17 00:01 Dose: 200 mls/hr Sodium Chloride (Normal Saline) 1,000 mls @ 150 mls/hr IV ASDIRECTED [facility] Last Admin: 12/04/17 20:51 Dose: 100 mls/hr Vancomycin HCl 750 mg/Vancomycin HCl 500 mg/ Sodium Chloride 250 mls @ 166.667 mls/hr IV Q24H [facility] Last Admin: 12/04/17 10:29 Dose: 166.667 mls/hr Metronidazole 500 mg/ Premix 100 mls @ 100 mls/hr IV Q8H [facility] Last Admin: 12/04/17 18:29 Dose: 100 mls/hr Insulin Aspart (Novolog) 0 unit SUBCUT ACBED [facility]; Protocol Last Admin: 12/04/17 21:24 Dose: Not Given Midodrine (Midodrine) 5 mg PO BID [facility] Last Admin: 12/04/17 20:58 Dose: 5 mg Morphine Sulfate (Morphine) 1 mg IVPUSH Q4H PRN PRN Reason: SEVERE PAIN Last Admin: 12/04/17 21:13 Dose: 1 mg Multivitamins (Thera) 1 each PO DAILY [facility] Last Admin: 12/04/17 09:40 Dose: 1 each Ondansetron HCl (Zofran) 4 mg IV Q6H PRN PRN Reason: Nausea/Vomiting Last Admin: 12/03/17 17:17 Dose: 4 mg Oxybutynin Chloride (Oxybutynin Er) 5 mg PO BEDTIME [facility] Last Admin: 12/04/17 20:59 Dose: 5 mg Oxycodone HCl (Oxycodone) 5 mg PO Q4H PRN PRN Reason: MODERATE PAIN Last Admin: 12/04/17 23:36 Dose: 5 mg Pantoprazole Sodium (Protonix) 40 mg PO BIDAC [facility] Last Admin: 12/04/17 16:37 Dose: 40 mg Prednisone (Prednisone) 5 mg PO DAILY@0800 [facility] Last Admin: 12/04/17 09:40 Dose: 5 mg Pregabalin (Lyrica) 150 mg PO BEDTIME PRN PRN Reason: restless leg Last Admin: 12/04/17 20:58 Dose: 150 mg Ropinirole HCl (Requip) 1 mg PO BEDTIME [facility] Last Admin: 12/04/17 20:59 Dose: 1 mg Sodium Chloride (Saline Flush) 10 ml FLUSH ASDIRECTED PRN PRN Reason: Keep Vein Open Sodium Phosphate (Neutra-Phos) 250 mg PO QID [facility] Last Admin: 12/04/17 20:58 Dose: 250 mg Trazodone HCl (Trazodone) 50 mg PO BEDTIME PRN PRN Reason: Insomnia Vancomycin HCl (Pharmacy To Dose - Vancomycin) 1 dose .XX ASDIRECTED [facility] Zolpidem Tartrate (Ambien) 5 mg PO BEDTIME PRN PRN Reason: Sleep Discontinued Medications Ascorbic Acid (Vitamin C) 250 mg PO TIDMEALS [facility] Last Admin: 12/04/17 09:40 Dose: 250 mg Cholecalciferol (Vitamin D3) 400 units PO DAILY [facility] Last Admin: 12/04/17 09:40 Dose: 400 units Ferrous Sulfate (Ferrous Sulfate) 325 mg PO TIDMEALS [facility] Last Admin: 12/04/17 09:40 Dose: 325 mg Vancomycin HCl 750 mg/Vancomycin HCl 500 mg/ Sodium Chloride 250 mls @ 166.667 mls/hr IV Q8H [facility] Last Admin: 12/02/17 21:33 Dose: Not Given Ibuprofen (Motrin) 400 mg PO Q6H PRN PRN Reason: pain, fever Last Admin: 12/03/17 09:03 Dose: 400 mg Lisinopril (Prinivil) 2.5 mg PO DAILY [facility] Last Admin: 12/04/17 09:39 Dose: Not Given Oxycodone/Acetaminophen (Percocet 325-5 Mg) 1 tab PO Q4H PRN PRN Reason: moderate Pain Last Admin: 12/02/17 09:14 Dose: 1 tab - Exam General: Reports: Alert, Oriented Neck: Reports: Supple Lungs: Reports: Clear to Auscultation, Normal Respiratory Effort Cardiovascular: Reports: Regular Rate, Regular Rhythm GI/Abdominal Exam: Normal Bowel Sounds, Soft, Non-Tender, Other (obese) Skin: Reports: Other (r. thigh erythema area larger than this morning)
[2017-12-05] MEDS: metroNIDAZOLE/Normal Saline 500 MG in Premix Bag 100 BAG IV SCH (02:06)
[2017-12-05] MEDS: Ondansetron 4 MG/2 ML SDV IV PRN (04:36)
[2017-12-05] MEDS: Morphine 2 MG/ML Syringe IVPUSH PRN (04:39)
[2017-12-05 08:11] VITALS: BP 132/72
== END 2017-12-05 05:00 | DRG 602 ==
LOC: DL.MS 11:05 → UNDOADMIN 11:05 → DL.MS 14:19
PROVIDERS: ADMIT Internal Medicine; ATTEND Internal Medicine
DX: L03.116 Cellulitis of left lower limb (principal); J18.9 Pneumonia, unspecified organism; N17.9 Acute kidney failure, unspecified; L03.115 Cellulitis of right lower limb; E11.22 Type 2 diabetes mellitus with diabetic chronic kidney disease; N18.3 Chronic kidney disease, stage 3 (moderate); M06.9 Rheumatoid arthritis, unspecified; I12.9 Hypertensive chronic kidney disease with stage 1 through stage 4 chronic kidney disease, or unspecified chronic kidney disease; G47.30 Sleep apnea, unspecified; K29.70 Gastritis, unspecified, without bleeding; G89.29 Other chronic pain; M54.9 Dorsalgia, unspecified; M79.7 Fibromyalgia; H54.7 Unspecified visual loss; M41.9 Scoliosis, unspecified; Z79.52 Long term (current) use of systemic steroids; L73.9 Follicular disorder, unspecified; Z79.899 Other long term (current) drug therapy; Z87.01 Personal history of pneumonia (recurrent); Z88.8 Allergy status to other drugs, medicaments and biological substances; Z79.84 Long term (current) use of oral hypoglycemic drugs; Z86.14 Personal history of Methicillin resistant Staphylococcus aureus infection; Z87.891 Personal history of nicotine dependence; W57.XXXA Bitten or stung by nonvenomous insect and other nonvenomous arthropods, initial encounter
CPT/HCPCS: 36415; 71045; 73700-RT; 80048; 80202; 82962; 83605; 85025; 87040; 87070; 87205; A9270-GY; J1644; J1815-GY; J2270; J2405; J2543; J3370; J3490; J7030; J7050

== ENCOUNTER 2018-04-24 01:56 | Emergency (ER) | payer MEDICARE, MEDICAID ==
[2018-04-24 02:05] VITALS: BP 145/76
[2018-04-24] MEDS ORDERED: Sodium Chloride 0.9% 10 ML Syringe FLUSH PRN (02:30)
[2018-04-24 02:58] LABS: ANION GAP 14.3
--- NOTE | 2018-04-24 03:05 | EDM.PDOC ---
ED HPI GENERAL MEDICAL PROBLEM - General Chief Complaint: Diabetic Complaint Stated Complaint: BLOOD SUGAR IS TOO HIGH Time Seen by Provider: 04/24/18 02:40 Source of Information: Reports: Patient, Family, RN, RN Notes Reviewed History Limitations: Reports: No Limitations - History of Present Illness INITIAL COMMENTS - FREE TEXT/NARRATIVE: Pt to ER with c/o high blood sugar tonight. She states she was not feeling well and slept all day without checking her blood sugar. She states she checked her blood sugar about 9:30pm and it read "high". She then gave herself 30 units of Novolog, and 30 units of Lantus. Second blood sugar was taken about 10:45pm and read 585. She then took another 30 units of Lantus and 30 units of Novolog. When checked again at 00:30 the blood sugar read 480's. At this time she took an additional 30 units of Lantus, and 30 units of Novolog. She states she checked the blood sugar on the way in to the ER and this read 380's. She states she does not know why she took so much insulin, she states she was scared. She states she began having some right sided abdominal/flank pain on the way into the ER. She admits to having frequency, denies burning or urgency. Patient states she is unsure if she has had a fever. Admits to nausea at times. She states she has chronic pain and aches due to RA, fibromyalgia, and scoliosis. Onset: Today, Sudden Right Lower Abdomen Pain Score (Numeric/FACES): 7 - Related Data Allergies Allergy/AdvReac Type Severity Reaction Status Date / Time No Known Allergies Allergy Verified 04/24/18 02:17 Home Meds: Home Meds Ascorbic Acid [Vitamin C] 250 mg PO TIDMEALS 03/08/14 [History] predniSONE 60 mg PO DAILY 03/08/14 [History] Pantoprazole [Pantoprazole Sodium] 40 mg PO BID 09/13/14 [History] DULoxetine [Cymbalta] 60 mg PO DAILY 08/07/15 [History] rOPINIRole [Requip] 0.25 mg PO BEDTIME 08/13/15 [History] oxyCODONE HCl/Acetaminophen [Endocet 10-325 mg Tablet] 1 each PO Q4H PRN [History] Oxybutynin [Oxybutynin ER] 10 mg PO BEDTIME 04/14/16 [History] cycloSPORINE [Restasis] 1 drop EYEBOTH BID 04/14/16 [History] Bumetanide [Bumex] 1 mg PO BID 04/24/18 [History] Insulin Aspart [NovoLOG] 30 unit SQ TIDMEALS 04/24/18 [History] Insulin Glargine,Hum.Rec.Anlog [Lantus Solostar] 30 units SQ BID 04/24/18 [ History] Potassium Chloride [Klor-Con 10] 10 meq PO BID 04/24/18 [History] Sulfamethoxazole/Trimethoprim [Sulfamethoxazole-Tmp Ds Tablet] 1 each PO ASDIRECTED 04/24/18 [History] atorvaSTATin [Lipitor] 20 mg PO BEDTIME 04/24/18 [History] metFORMIN HCl [Metformin HCl] 1,000 mg PO BID 04/24/18 [History] metOLazone [Metolazone] 5 mg PO DAILY 04/24/18 [History] Past Medical History - Past Health History Medical/Surgical History: Denies Medical/Surgical History HEENT History: Reports: Cataract, Impaired Vision, Other (See Below) Other HEENT History: wears glasses Cardiovascular History: Reports: Hypertension, SOB on Exertion Respiratory History: Reports: Bronchitis, Recurrent, Sleep Apnea, SOB Gastrointestinal History: Reports: Gastritis, Other (See Below) Other Gastrointestinal History: chronic stomach pains. 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 OSTEOMELITIS OF RIGHT FOOT, healed 05/10/17 Neurological History: Reports: Other (See Below) Other Neuro History: SOMNOLENCE, DAYTIME, nerve damage to back and legs Psychiatric History: Reports: Anxiety, Eating Disorders Endocrine/Metabolic History: Reports: Diabetes, Type II, IDDM, Obesity/BMI 30+ Hematologic History: Reports: Iron Deficiency, Other (See Below) Other Hematologic History: HX OF SEPSIS. HX OF MRSA INFECTION Immunologic History: Reports: Immunosuppression, Other (See Below) Other Immunologic History: RA Oncologic (Cancer) History: Reports: None Dermatologic History: Reports: Cellulitis, Other (See Below) Other Dermatologic History: hx of mrsa. HX OF SKIN ULCERS OF FOOT, BILAT. DIABETIC SKIN ULCERS. CELLULITIS OF L ANTERIOR LOWER LEG. BIOPSY OF SKIN LESION - Infectious Disease History Infectious Disease History: Reports: MRSA Other Infectious Disease History: CELLULITIS - Past Surgical History Head Surgeries/Procedures: Reports: None HEENT Surgical History: Reports: Cataract Surgery Cardiovascular Surgical History: Reports: None Respiratory Surgical History: Reports: None GI Surgical History: Reports: None Female Surgical History: Reports: Other (See Below) Other Female Surgeries/Procedures: cyst on her left kidney Endocrine Surgical History: Reports: None Neurological Surgical History: Reports: None Musculoskeletal Surgical History: Reports: Amputation, Other (See Below) Other Musculoskeletal Surgeries/Procedures:: right toe ampulation Oncologic Surgical History: Reports: None Dermatological Surgical History: Reports: Other (See Below) Social & Family History - Family History Family Medical History: Noncontributory HEENT: Reports: None Cardiac: Reports: None Respiratory: Reports: None GI: Reports: None : Reports: None OBGYN: Reports: None Musculoskeletal: Reports: RA Neurological: Reports: None Psychiatric: Reports: Depression Endocrine/Metabolic: Reports: Diabetes, type II Hematologic: Reports: None Immunologic: Reports: None Dermatologic: Reports: None Oncologic: Reports: None - Tobacco Use Smoking Status *Q: Current Some Day Smoker Years of Tobacco use: 1 Packs/Tins Daily: 0.1 Second Hand Smoke Exposure: Yes - Caffeine Use Caffeine Use: Reports: Coffee, Soda, Tea Other Caffeine Use: 16oz daily Caffeine Use Comment: 3/day - Recreational Drug Use Recreational Drug Use: No - Living Situation & Occupation Living situation: Reports: with Family ED ROS GENERAL - Review of Systems Review Of Systems: ROS reveals no pertinent complaints other than HPI. ED EXAM GENERAL NO PERIP PULSE - Physical Exam Exam: See Below Exam Limited By: No Limitations General Appearance: Alert, WD/WN, No Apparent Distress Eye Exam: Bilateral Eye: EOMI, Normal Inspection Ears: Normal External Exam, Hearing Grossly Normal Nose: Normal Inspection Throat/Mouth: Normal Inspection, Normal Voice, No Airway Compromise Head: Atraumatic, Normocephalic Neck: Normal Inspection, Supple, Non-Tender, Full Range of Motion Respiratory/Chest: No Respiratory Distress, Lungs Clear, Normal Breath Sounds, No Accessory Muscle Use, Chest Non-Tender Cardiovascular: Normal Peripheral Pulses, Regular Rate, Rhythm, No Edema, No Gallop, No JVD, No Murmur, No Rub GI/Abdominal: Normal Bowel Sounds, Soft, Tender (RUQ) (Female) Exam: Deferred Rectal (Female) Exam: Deferred Back Exam: Normal Inspection, Full Range of Motion, CVA Tenderness (R) Extremities: Other (joint deformity of the fingers, hx RA) Neurological: Alert, Oriented, CN II-XII Intact, Normal Cognition, Normal Gait, Normal Reflexes, No Motor/Sensory Deficits Psychiatric: Normal Affect, Normal Mood Skin Exam: Warm, Dry, Intact, Normal Color, No Rash Lymphatic: No Adenopathy Course - Vital Signs Last Recorded V/S: Last Vital Signs Temp 96 F 04/24/18 01:59 Pulse 88 04/24/18 01:59 Resp 18 04/24/18 01:59 BP 145/76 H 04/24/18 01:59 Pulse Ox 98 04/24/18 01:59 - Orders/Labs/Meds Orders: Active Orders 24 hr Category Date Time Status Blood Glucose Check, Bedside [RC] ONETIME Care 04/24/18 02:27 Active Blood Glucose Check, Bedside [RC] ONETIME Care 04/24/18 03:24 Active Blood Glucose Check, Bedside [RC] ONETIME Care 04/24/18 04:35 Active Blood Glucose Check, Bedside [RC] ONETIME Care 04/24/18 05:41 Active Blood Glucose Check, Bedside [RC] ONETIME Care 04/24/18 06:49 Active Peripheral IV Care [RC] . DIRECTED Care 04/24/18 02:30 Active Abdomen Pelvis wo Cont [CT] Urgent Exams 04/24/18 03:19 Taken Sodium Chloride 0.9% [Saline Flush] Med 04/24/18 02:30 Active 10 ml FLUSH ASDIRECTED PRN Peripheral IV Insertion Adult [OM.PC] Routine Oth 04/24/18 02:30 Ordered Medication Orders Sodium Chloride (Saline Flush) 10 ml FLUSH ASDIRECTED PRN PRN Reason: Keep Vein Open Last Admin: 04/24/18 02:34 Dose: 10 ml Labs: Laboratory Tests 04/24/18 04/24/18 04/24/18 Range/Units 02:28 02:30 02:30 WBC (5.0-10.0) 10^3/uL RBC (4.2-5.4) 10^6/uL Hgb (12.0-16.0) g/dL Hct (37.0-47.0) % MCV (80-100) fL MCH (27.0-34.0) pg MCHC (33.0-35.0) g/dL Plt Count (150-450) 10^3/uL Neut % (Auto) (42.2-75.2) % Lymph % (Auto) (20.5-50.1) % [place] % (Auto) (2-8) % Eos % (Auto) (1.0-3.0) % Baso % (Auto) (0.0-1.0) % Add Manual Diff Neutrophils % (Manual) (42-75) % Lymphocytes % (Manual) (20-50) % Monocytes % (Manual) (2-8) % Sodium (135-145) mmol/L Potassium (3.6-5.0) mmol/L Chloride (101-111) mmol/L Carbon Dioxide (21.0-31.0) mmol/L Anion Gap BUN (7-18) mg/dL Creatinine (0.6-1.3) mg/dL Est Cr Clr Drug Dosing mL/min Estimated GFR (MDRD) BUN/Creatinine Ratio Glucose (74-105) mg/dL POC Glucose 287 H (70-105) mg/dl Calcium (8.4-10.2) mg/dl Total Bilirubin (0.2-1.0) mg/dL AST (10-42) IU/L ALT (10-60) IU/L Alkaline Phosphatase (42-121) IU/L Total Protein (6.7-8.2) g/dl Albumin (3.2-5.5) g/dl Globulin Albumin/Globulin Ratio Amylase (28-100) U/L Lipase (22-51) U/L Urine Color Yellow (YELLOW) Urine Appearance Clear (CLEAR) Urine pH 6.0 (5.0-9.0) Ur Specific [place] 1.020 (1.005-1.030) Urine Protein >=300 H (NEGATIVE) Urine Glucose (UA) 500 H (NEGATIVE) Urine Ketones Negative (NEGATIVE) Urine Occult Blood Moderate H (NEGATIVE) Urine Nitrite Negative (NEGATIVE) Urine Bilirubin Negative (NEGATIVE) Urine Urobilinogen 0.2 (0.2-1.0) mg/dL Ur Leukocyte Esterase Negative (NEGATIVE) Urine RBC 10-20 H /HPF Urine WBC 0-5 (0-5/HPF) /HPF Ur Epithelial Cells Moderate H /HPF Urine Bacteria Few (0-FEW/HPF) /HPF Urine Yeast Few H (0/HPF) /HPF Urine HCG, Qual Negative 04/24/18 04/24/18 04/24/18 Range/Units 02:32 02:32 03:27 WBC 3.8 L (5.0-10.0) 10^3/uL RBC 3.37 L (4.2-5.4) 10^6/uL Hgb 10.8 L (12.0-16.0) g/dL Hct 33.1 L (37.0-47.0) % MCV 98.2 (80-100) fL MCH 32.0 (27.0-34.0) pg MCHC 32.6 L (33.0-35.0) g/dL Plt Count 304 (150-450) 10^3/uL Neut % (Auto) 54.4 (42.2-75.2) % Lymph % (Auto) 40.1 (20.5-50.1) % [place] % (Auto) 4.9 (2-8) % Eos % (Auto) 0.3 L (1.0-3.0) % Baso % (Auto) 0.3 (0.0-1.0) % Add Manual Diff Yes Neutrophils % (Manual) 47 (42-75) % Lymphocytes % (Manual) 44 (20-50) % Monocytes % (Manual) 9 H (2-8) % Sodium 135 (135-145) mmol/L Potassium 3.3 L (3.6-5.0) mmol/L Chloride 100 L (101-111) mmol/L Carbon Dioxide 24.0 (21.0-31.0) mmol/L Anion Gap 14.3 BUN 30 H (7-18) mg/dL Creatinine 1.5 H (0.6-1.3) mg/dL Est Cr Clr Drug Dosing 48.78 mL/min Estimated GFR (MDRD) 38 BUN/Creatinine Ratio 20.00 Glucose 298 H (74-105) mg/dL POC Glucose 244 H (70-105) mg/dl Calcium 8.7 (8.4-10.2) mg/dl Total Bilirubin 0.6 (0.2-1.0) mg/dL AST 23 (10-42) IU/L ALT 18 (10-60) IU/L Alkaline Phosphatase 84 (42-121) IU/L Total Protein 7.0 (6.7-8.2) g/dl Albumin 3.3 (3.2-5.5) g/dl Globulin 3.7 Albumin/Globulin Ratio 0.89 Amylase (28-100) U/L Lipase (22-51) U/L Urine Color (YELLOW) Urine Appearance (CLEAR) Urine pH (5.0-9.0) Ur Specific [place] (1.005-1.030) Urine Protein (NEGATIVE) Urine Glucose (UA) (NEGATIVE) Urine Ketones (NEGATIVE) Urine Occult Blood (NEGATIVE) Urine Nitrite (NEGATIVE) Urine Bilirubin (NEGATIVE) Urine Urobilinogen (0.2-1.0) mg/dL Ur Leukocyte Esterase (NEGATIVE) Urine RBC /HPF Urine WBC (0-5/HPF) /HPF Ur Epithelial Cells /HPF Urine Bacteria (0-FEW/HPF) /HPF Urine Yeast (0/HPF) /HPF Urine HCG, Qual 04/24/18 04/24/18 04/24/18 Range/Units 03:40 04:34 05:43 WBC (5.0-10.0) 10^3/uL RBC (4.2-5.4) 10^6/uL Hgb (12.0-16.0) g/dL Hct (37.0-47.0) % MCV (80-100) fL MCH (27.0-34.0) pg MCHC (33.0-35.0) g/dL Plt Count (150-450) 10^3/uL Neut % (Auto) (42.2-75.2) % Lymph % (Auto) (20.5-50.1) % [place] % (Auto) (2-8) % Eos % (Auto) (1.0-3.0) % Baso % (Auto) (0.0-1.0) % Add Manual Diff Neutrophils % (Manual) (42-75) % Lymphocytes % (Manual) (20-50) % Monocytes % (Manual) (2-8) % Sodium (135-145) mmol/L Potassium (3.6-5.0) mmol/L Chloride (101-111) mmol/L Carbon Dioxide (21.0-31.0) mmol/L Anion Gap BUN (7-18) mg/dL Creatinine (0.6-1.3) mg/dL Est Cr Clr Drug Dosing mL/min Estimated GFR (MDRD) BUN/Creatinine Ratio Glucose (74-105) mg/dL POC Glucose 161 H 115 H (70-105) mg/dl Calcium (8.4-10.2) mg/dl Total Bilirubin (0.2-1.0) mg/dL AST (10-42) IU/L ALT (10-60) IU/L Alkaline Phosphatase (42-121) IU/L Total Protein (6.7-8.2) g/dl Albumin (3.2-5.5) g/dl Globulin Albumin/Globulin Ratio Amylase 43 (28-100) U/L Lipase 57 H (22-51) U/L Urine Color (YELLOW) Urine Appearance (CLEAR) Urine pH (5.0-9.0) Ur Specific [place] (1.005-1.030) Urine Protein (NEGATIVE) Urine Glucose (UA) (NEGATIVE) Urine Ketones (NEGATIVE) Urine Occult Blood (NEGATIVE) Urine Nitrite (NEGATIVE) Urine Bilirubin (NEGATIVE) Urine Urobilinogen (0.2-1.0) mg/dL Ur Leukocyte Esterase (NEGATIVE) Urine RBC /HPF Urine WBC (0-5/HPF) /HPF Ur Epithelial Cells /HPF Urine Bacteria (0-FEW/HPF) /HPF Urine Yeast (0/HPF) /HPF Urine HCG, Qual 04/24/18 Range/Units 06:48 WBC (5.0-10.0) 10^3/uL RBC (4.2-5.4) 10^6/uL Hgb (12.0-16.0) g/dL Hct (37.0-47.0) % MCV (80-100) fL MCH (27.0-34.0) pg MCHC (33.0-35.0) g/dL Plt Count (150-450) 10^3/uL Neut % (Auto) (42.2-75.2) % Lymph % (Auto) (20.5-50.1) % [place] % (Auto) (2-8) % Eos % (Auto) (1.0-3.0) % Baso % (Auto) (0.0-1.0) % Add Manual Diff Neutrophils % (Manual) (42-75) % Lymphocytes % (Manual) (20-50) % Monocytes % (Manual) (2-8) % Sodium (135-145) mmol/L Potassium (3.6-5.0) mmol/L Chloride (101-111) mmol/L Carbon Dioxide (21.0-31.0) mmol/L Anion Gap BUN (7-18) mg/dL Creatinine (0.6-1.3) mg/dL Est Cr Clr Drug Dosing mL/min Estimated GFR (MDRD) BUN/Creatinine Ratio Glucose (74-105) mg/dL POC Glucose 103 (70-105) mg/dl Calcium (8.4-10.2) mg/dl Total Bilirubin (0.2-1.0) mg/dL AST (10-42) IU/L ALT (10-60) IU/L Alkaline Phosphatase (42-121) IU/L Total Protein (6.7-8.2) g/dl Albumin (3.2-5.5) g/dl Globulin Albumin/Globulin Ratio Amylase (28-100) U/L Lipase (22-51) U/L Urine Color (YELLOW) Urine Appearance (CLEAR) Urine pH (5.0-9.0) Ur Specific [place] (1.005-1.030) Urine Protein (NEGATIVE) Urine Glucose (UA) (NEGATIVE) Urine Ketones (NEGATIVE) Urine Occult Blood (NEGATIVE) Urine Nitrite (NEGATIVE) Urine Bilirubin (NEGATIVE) Urine Urobilinogen (0.2-1.0) mg/dL Ur Leukocyte Esterase (NEGATIVE) Urine RBC /HPF Urine WBC (0-5/HPF) /HPF Ur Epithelial Cells /HPF Urine Bacteria (0-FEW/HPF) /HPF Urine Yeast (0/HPF) /HPF Urine HCG, Qual Meds: Medications Generic Name Dose Route Start Last Admin Trade Name Freq PRN Reason Stop Dose Admin Sodium Chloride 10 ml 04/24/18 02:30 04/24/18 02:34 Saline Flush FLUSH 10 ml ASDIRECTED PRN Administration Keep Vein Open Discontinued Medications Generic Name Dose Route Start Last Admin Trade Name Freq PRN Reason Stop Dose Admin Hydromorphone HCl 1 mg 04/24/18 03:22 04/24/18 03:31 Dilaudid IVPUSH 04/24/18 03:23 1 mg ONETIME ONE Administration Hydromorphone HCl 1 mg 04/24/18 05:08 04/24/18 05:13 Dilaudid IVPUSH 04/24/18 05:09 1 mg ONETIME ONE Administration - Radiology Interpretation Free Text/Narrative:: Abdomen/Pelvis without contrast: FINDINGS: Lower thorax: Small amount of bronchiectasis in the lung bases. ABDOMEN: Liver: No suspicious lesions. Gallbladder and bile ducts: No acute or concerning findings. Pancreas: Unremarkable. Spleen: No suspicious lesions. Adrenals: Unremarkable. No suspicious nodule. Kidneys and ureters: Unremarkable. No hydro. No suspicious lesions. Stomach and bowel: Colonic diverticulosis. Appendix: No evidence of appendicitis. PELVIS: Bladder: Unremarkable as visualized. Reproductive: Unremarkable as visualized. ABDOMEN and PELVIS: Intraperitoneal space: No free air. No significant fluid collection. Bones/joints: No acute fracture. No dislocation. Soft tissues: Unremarkable. Vasculature: Unremarkable. Lymph nodes: Unremarkable. IMPRESSION: No acute findings. Small amount of postinflammatory change in the lung bases with some bronchiectasis. This has progressed slightly since the comparison study. Thank you for allowing us to participate in the care of your patient. Dictated and Authenticated by: Margarito Gifford MD 04/24/2018 5:42 AM Central Time ([place] & [place]) See rad report - Re-Assessments/Exams Free Text/Narrative Re-Assessment/Exam: 04/24/18 07:02 Discussed the patient case with Dr. Yarbrough who states the patient does not need to be admitted at this time, and can be discharged home to follow up with her primary care facility to adjust her insulin dosages. Departure - Departure Time of Disposition: 07:03 Disposition: Home, Self-Care 01 Condition: Fair Clinical Impression: Hyperglycemia, Abdominal pain of unknown cause Abdominal pain Qualifiers: Abdominal location: generalized Qualified Code(s): R10.84 - Generalized abdominal pain - Discharge Information *PRESCRIPTION DRUG MONITORING PROGRAM REVIEWED*: No *COPY OF PRESCRIPTION DRUG MONITORING REPORT IN PATIENT MAURICIO: No Instructions: Hyperglycemia, [id number] Forms: ED Department Discharge Additional Instructions: Go home, eat a balanced breakfast, and monitor your blood glucose frequently Follow up with Dr. Hernandez and Sage Steinberg this week. - My Orders Last 24 Hours: My Active Orders 04/24/18 02:27 Blood Glucose Check, Bedside [RC] ONETIME 04/24/18 02:30 Peripheral IV Care [RC] . DIRECTED Sodium Chloride 0.9% [Saline Flush] 10 ml FLUSH ASDIRECTED PRN Peripheral IV Insertion Adult [OM.PC] Routine 04/24/18 03:19 Abdomen Pelvis wo Cont [CT] Urgent 04/24/18 03:24 Blood Glucose Check, Bedside [RC] ONETIME 04/24/18 04:35 Blood Glucose Check, Bedside [RC] ONETIME 04/24/18 05:41 Blood Glucose Check, Bedside [RC] ONETIME 04/24/18 06:49 Blood Glucose Check, Bedside [RC] ONETIME - Assessment/Plan Last 24 Hours: My Active Orders 04/24/18 02:27 Blood Glucose Check, Bedside [RC] ONETIME 04/24/18 02:30 Peripheral IV Care [RC] . DIRECTED Sodium Chloride 0.9% [Saline Flush] 10 ml FLUSH ASDIRECTED PRN Peripheral IV Insertion Adult [OM.PC] Routine 04/24/18 03:19 Abdomen Pelvis wo Cont [CT] Urgent 04/24/18 03:24 Blood Glucose Check, Bedside [RC] ONETIME 04/24/18 04:35 Blood Glucose Check, Bedside [RC] ONETIME 04/24/18 05:41 Blood Glucose Check, Bedside [RC] ONETIME 04/24/18 06:49 Blood Glucose Check, Bedside [RC] ONETIME
[2018-04-24] MEDS ORDERED: HYDROmorphone 1 MG/ML Syringe IVPUSH ONE ×2 (03:22→05:08)
== END 2018-04-24 07:11 | disposition home or self-care (01) ==
LOC: DL.ED 01:56
DX: R10.84 Generalized abdominal pain (principal); R10.31 Right lower quadrant pain; E11.65 Type 2 diabetes mellitus with hyperglycemia; I10 Essential (primary) hypertension; F17.210 Nicotine dependence, cigarettes, uncomplicated; Z79.899 Other long term (current) drug therapy; Z79.4 Long term (current) use of insulin
CPT/HCPCS: 36415; 74176; 80053; 81001; 81025; 82150; 82962; 83690; 85025; 96374; 99285; J1170

== ENCOUNTER 2018-06-06 23:48 | Emergency (ER) | payer MEDICARE, MEDICAID ==
[2018-06-07 00:02] VITALS: BP 130/88
[2018-06-07] MEDS ORDERED: Ketorolac 30 MG/ML SDV IM ONE (00:15)
--- NOTE | 2018-06-07 00:15 | EDM.PDOC ---
ED HPI GENERAL MEDICAL PROBLEM - General Chief Complaint: Back Pain or Injury Stated Complaint: BACK PAIN [id number] Time Seen by Provider: 06/07/18 00:10 Source of Information: Reports: Patient, RN, RN Notes Reviewed History Limitations: Reports: No Limitations - History of Present Illness INITIAL COMMENTS - FREE TEXT/NARRATIVE: Pt to ER with c/o back pain. Patient states she was bending over to pick something up when she felt a "pop" in her back, and began having back pain in the left thoracic area of the back. She states this happened about 1 hour prior to arrival. Denies taking anything for pain. She states she has scoliosis, lupus , RA, chronic back pain. She states she is unable to take muscle relaxers, ibuprofen, tylenol. Patient states she always has neuropathy down the legs, this is not new. Pt rates pain 11/20. Onset: Today, Sudden Location: Reports: Back Quality: Reports: Sharp, Stabbing Severity: Severe Improves with: Reports: None Worsens with: Reports: Movement Lower Back Pain Score (Numeric/FACES): 10 - Related Data Allergies Allergy/AdvReac Type Severity Reaction Status Date / Time muslce relaxers AdvReac arms numb Uncoded 06/07/18 00:21 and anxiety Home Meds: Home Meds Ascorbic Acid [Vitamin C] 250 mg PO TIDMEALS 03/08/14 [History] predniSONE 10 mg PO DAILY 03/08/14 [History] Pantoprazole [Pantoprazole Sodium] 40 mg PO BID 09/13/14 [History] DULoxetine [Cymbalta] 60 mg PO DAILY 08/07/15 [History] rOPINIRole [Requip] 0.25 mg PO BEDTIME 08/13/15 [History] Oxybutynin [Oxybutynin ER] 10 mg PO BEDTIME 04/14/16 [History] cycloSPORINE [Restasis] 1 drop EYEBOTH BID 04/14/16 [History] Bumetanide [Bumex] 1 mg PO BID 04/24/18 [History] Insulin Aspart [NovoLOG] 30 unit SQ TIDMEALS 04/24/18 [History] Insulin Glargine,Hum.Rec.Anlog [Lantus Solostar] 30 units SQ BID 04/24/18 [ History] Potassium Chloride [Klor-Con 10] 10 meq PO BID 04/24/18 [History] atorvaSTATin [Lipitor] 20 mg PO BEDTIME 04/24/18 [History] metFORMIN HCl [Metformin HCl] 1,000 mg PO BID 04/24/18 [History] metOLazone [Metolazone] 5 mg PO DAILY 04/24/18 [History] Calcium Carbonate [Calcium] 500 mg PO DAILY 06/07/18 [History] Ferrous Sulfate [Iron] 325 mg PO DAILY 06/07/18 [History] Past Medical History - Past Health History Medical/Surgical History: Denies Medical/Surgical History HEENT History: Reports: Cataract, Impaired Vision, Other (See Below) Other HEENT History: wears glasses Cardiovascular History: Reports: Hypertension, SOB on Exertion Respiratory History: Reports: Bronchitis, Recurrent, Sleep Apnea, SOB Gastrointestinal History: Reports: Gastritis, Other (See Below) Other Gastrointestinal History: chronic stomach pains. 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 OSTEOMELITIS OF RIGHT FOOT, healed 05/10/17 Neurological History: Reports: Other (See Below) Other Neuro History: SOMNOLENCE, DAYTIME, nerve damage to back and legs Psychiatric History: Reports: Anxiety, Depression, Eating Disorders Endocrine/Metabolic History: Reports: Diabetes, Type II, IDDM, Obesity/BMI 30+ Hematologic History: Reports: Iron Deficiency, Other (See Below) Other Hematologic History: HX OF SEPSIS. HX OF MRSA INFECTION Immunologic History: Reports: Immunosuppression, Other (See Below) Other Immunologic History: RA Oncologic (Cancer) History: Reports: None Dermatologic History: Reports: Cellulitis, Other (See Below) Other Dermatologic History: hx of mrsa. HX OF SKIN ULCERS OF FOOT, BILAT. DIABETIC SKIN ULCERS. CELLULITIS OF L ANTERIOR LOWER LEG. BIOPSY OF SKIN LESION - Infectious Disease History Infectious Disease History: Reports: MRSA Other Infectious Disease History: CELLULITIS - Past Surgical History Head Surgeries/Procedures: Reports: None HEENT Surgical History: Reports: Cataract Surgery Cardiovascular Surgical History: Reports: None Respiratory Surgical History: Reports: None GI Surgical History: Reports: None Female Surgical History: Reports: Other (See Below) Other Female Surgeries/Procedures: cyst on her left kidney Endocrine Surgical History: Reports: None Neurological Surgical History: Reports: None Musculoskeletal Surgical History: Reports: Amputation, Other (See Below) Other Musculoskeletal Surgeries/Procedures:: right toe ampulation Oncologic Surgical History: Reports: None Dermatological Surgical History: Reports: Other (See Below) Social & Family History - Family History Family Medical History: Noncontributory HEENT: Reports: None Cardiac: Reports: None Respiratory: Reports: None GI: Reports: None : Reports: None OBGYN: Reports: None Musculoskeletal: Reports: RA Neurological: Reports: None Psychiatric: Reports: Depression Endocrine/Metabolic: Reports: Diabetes, type II Hematologic: Reports: None Immunologic: Reports: None Dermatologic: Reports: None Oncologic: Reports: None - Tobacco Use Smoking Status *Q: Current Some Day Smoker Years of Tobacco use: 25 Packs/Tins Daily: 0.1 - Caffeine Use Caffeine Use: Reports: Coffee, Soda Other Caffeine Use: 16oz daily Caffeine Use Comment: 3/day - Recreational Drug Use Recreational Drug Use: No - Living Situation & Occupation Living situation: Reports: with Family ED ROS GENERAL - Review of Systems Review Of Systems: ROS reveals no pertinent complaints other than HPI. ED EXAM,LOWER BACK PAIN/INJURY - Physical Exam Exam: See Below Exam Limited By: No Limitations General Appearance: Alert, WD/WN, Moderate Distress Eye Exam: Bilateral Eye: EOMI, Normal Inspection Ears: Normal External Exam, Hearing Grossly Normal Nose: Normal Inspection Throat/Mouth: Normal Inspection, Normal Voice, No Airway Compromise Head: Atraumatic, Normocephalic Neck: Normal Inspection, Limited Range of Motion Respiratory/Chest: No Respiratory Distress, Lungs Clear, Normal Breath Sounds, No Accessory Muscle Use, Chest Non-Tender Cardiovascular: Normal Peripheral Pulses, Regular Rate, Rhythm, No Edema, No Gallop, No JVD, No Murmur, No Rub GI/Abdominal: Normal Bowel Sounds, Soft, Non-Tender (Female) Exam: Deferred Rectal (Female) Exam: Deferred Back Exam: Normal Inspection, CVA Tenderness (L), Decreased Range of Motion, Muscle Spasm Extremities: Limited Range of Motion, Other (deformity of all digits) Neurological: Alert, Normal Dorsiflexion, CN II-XII Intact, Normal Plantar Flexion, Normal Gait, Normal Reflexes, No Motor/Sensory Deficits, Oriented x 3 Psychiatric: Normal Affect, Normal Mood, Tearful Skin Exam: Warm, Dry, Intact, Normal Color, No Rash Lymphatic: No Adenopathy Course - Vital Signs Last Recorded V/S: Last Vital Signs Temp 95.8 F 06/07/18 00:01 Pulse 109 H 06/07/18 00:01 Resp 20 06/07/18 00:01 BP 130/88 06/07/18 00:01 Pulse Ox 98 06/07/18 00:01 - Orders/Labs/Meds Meds: Medications Discontinued Medications Generic Name Dose Route Start Last Admin Trade Name Freq PRN Reason Stop Dose Admin Butorphanol Tartrate 2 mg 06/07/18 00:19 06/07/18 00:30 Stadol IM 06/07/18 00:20 2 mg ONETIME ONE Administration Ketorolac Tromethamine 30 mg 06/07/18 00:15 06/07/18 00:32 Toradol IM 06/07/18 00:16 Not Given ONETIME ONE Orphenadrine Citrate 60 mg 06/07/18 00:15 06/07/18 00:32 Norflex IM Not Given Q12H NELLY Promethazine HCl 25 mg 06/07/18 00:18 06/07/18 00:31 Phenergan IM 06/07/18 00:19 25 mg ONETIME ONE Administration - Re-Assessments/Exams Free Text/Narrative Re-Assessment/Exam: 06/07/18 04:31 Patient states she cannot take muscle relaxants as they make her arms go numb and drives her crazy. Patient was given Stadol and Phenergan IM. Approx 10-15 minutes after the injections, patient asking for more shots. She was told by provider that she would not get another shot at this time, as she just had the 2. She was told that she would be discharged home to rest and instructed to use heat on her back and contact her primary care facility in the morning. Patient states understanding. When nurse was discharging the patient she told the nurse that she would not sign the discharge papers until the nurse asked the provider if she could have another shot. Nurse informed her that the provider said no more shots at this time. Patient signed paperwork and left. Patient had stated to the provider that the pain had decreased from a 9/10 to a 6-7/10 after the injections. Departure - Departure Time of Disposition: 00:44 Disposition: Home, Self-Care 01 Condition: Fair Clinical Impression: Back pain Qualifiers: Back pain location: thoracic back pain Chronicity: chronic Back pain laterality : left Qualified Code(s): M54.6 - Pain in thoracic spine - Discharge Information *PRESCRIPTION DRUG MONITORING PROGRAM REVIEWED*: Yes *COPY OF PRESCRIPTION DRUG MONITORING REPORT IN PATIENT MAURICIO: No Instructions: Back Pain, Adult, [id number] Referrals: PCP,None [Primary Care Provider] - Forms: ED Department Discharge Additional Instructions: Heat as tolerated Follow up with your primary care facility
[2018-06-07] MEDS ORDERED: Promethazine 25 MG/ML SDV IM ONE (00:18)
[2018-06-07] MEDS ORDERED: Butorphanol 2 MG/ML SDV IM ONE (00:19)
== END 2018-06-07 01:00 | disposition home or self-care (01) ==
LOC: DL.ED 23:48
DX: M54.6 Pain in thoracic spine (principal); I10 Essential (primary) hypertension; F41.9 Anxiety disorder, unspecified; F32.9 Major depressive disorder, single episode, unspecified; E11.9 Type 2 diabetes mellitus without complications; Z88.8 Allergy status to other drugs, medicaments and biological substances; Z79.899 Other long term (current) drug therapy; Z79.4 Long term (current) use of insulin
CPT/HCPCS: 96372; 99283; J0595; J2550

== ENCOUNTER 2018-10-31 15:12 | Observation (INO) | payer MEDICARE, MEDICAID ==
[2018-10-31] MEDS ORDERED: Ondansetron 4 MG Tab.DIS PO PRN (15:47)
[2018-10-31] MEDS ORDERED: Hydrocortisone Sodium Succinate 100 MG/2 ML SDV IVPUSH ONE (16:00)
[2018-10-31] MEDS ORDERED: Iopamidol 612 MG/ML 100 ML Bottle IVPUSH ONE (16:04)
[2018-10-31] MEDS ORDERED: Sodium Chloride 0.9% 10 ML Syringe FLUSH PRN (16:45)
[2018-10-31] MEDS: Pantoprazole 40 MG Vial IVPUSH SCH (16:51)
[2018-10-31] MEDS: Sodium Chloride 0.9% 1,000 ML IV SCH (17:23)
--- NOTE | 2018-10-31 17:24 | CR ---
Clinical history: 43-year-old diabetic female with cough. Interpretation: Upright PA chest film reveals slight interval shaggy increase in the bronchovascular markings since 26 September 2018 exam (bronchitis? Venous congestion?). Normal cardiac silhouette for size and inspiration. No new signs of alveolar edema or dependent pleural fluid accumulation. No new lung mass, hilar lymphadenopathy or focal lobar pneumonia. No atelectasis/collapse. (Chronic mild blunting of the costophrenic sulci also evident on 20 September and 26 September 2018) No pneumothorax or free subdiaphragmatic air. CONCLUSION: Subtle venous congestion versus bronchitis. BNP? EKG? CBC? Otherwise negative PA chest i.e. no mass or focal lobar pneumonia.
--- NOTE | 2018-10-31 17:33 | CT ---
Clinical history: 43-year-old hypertensive 251 pound diabetic female with pulmonary "congestion" who is hospitalized with unexplained abdominal pain. Scan technique: Volume acquisition of data from the abdomen and pelvis obtained without oral contrast but during intravenous ministration 75 cc nonionic Isovue contrast (3 cc/s via injector) while patient was lying supine on the Siemens multi slice scanner [place], [place]. All data archived in the PACS system for storage, reformatting axial/sagittal/coronal planes and study. Interpretation: 1. Distended gallbladder (RUQ) without calcified intraluminal stones. No dilatation of the intra or extrahepatic biliary ducts and the liver is unremarkable. Normal stomach, spleen, pancreas and adrenal glands. 2. Normal reniform size, axis and configuration bilaterally. No renal cortical mass lesion, nephrolithiasis or signs of obstructive uropathy. Symmetrically distended normal appearing urinary bladder. 3. Diverticulosis sigmoid colon without associated signs of inflammation i.e. no pericolonic inflammatory "dirty" peritoneal mass lesion, abscess or signs of mechanical bowel obstruction. 4. Normal uterus left of midline. No adnexal or abdominal mass lesion. No mesenteric or retroperitoneal lymphadenopathy. 5. Normal caliber abdominal aorta. Normal lumbar spine. Small dependent pleural effusions but Lung bases otherwise clear. CONCLUSION: Sigmoid diverticulosis. No sign of intraperitoneal malignancy or acute inflammation. Small pleural effusions.
[2018-10-31] MEDS: Morphine 2 MG/ML Syringe IVPUSH PRN ×2 (17:35→21:42)
[2018-10-31] MEDS: Insulin Lispro 100 Units/ML 3 ML Vial SUBCUT SCH (17:52)
[2018-10-31] MEDS: predniSONE 10 MG Tab PO SCH (18:05)
--- NOTE | 2018-10-31 20:03 | HP ---
CHIEF COMPLAINT: Abdominal pain. HISTORY OF PRESENT ILLNESS: The patient is a 43-year-old female with multiple medical problems including type 2 diabetes mellitus on insulin, hypertension, ANCA-positive vasculitis, rheumatoid arthritis, obesity, who was admitted from [facility] because of abdominal pain. According to the patient for the last 4 to 5 days, she has this mild abdominal discomfort accompanied by nausea and loose bowel movement, and because of this, she has not been taking her medication, and today she presented to the clinic with abdominal pain, more or less located on the epigastric area radiating to her right flank. She was also complaining of some shortness of breath and some mild chest discomfort and mild dysuria with its associated symptoms. At the clinic, she had some workup done including comp panel. Glucose was 274, creatinine was 1.7, albumin was 3.3, AST was 14. The rest of the comp panel unremarkable. Urinalysis showed small blood with more than 300 mg/dL of protein and 1 to 5 rbc's with rare wbc. CBC; white blood cell count is 3.71, hemoglobin is 11.2, hematocrit is 32.2. The patient's saturation was also noted to be 93% on room air. Her provider at the clinic felt uncomfortable sending her home and so she called in here to have the patient admitted at least for observation. PAST MEDICAL HISTORY: As in HPI. SOCIAL HISTORY: The patient is a nonsmoker, non-alcohol drinker and no illicit drug use. REVIEW OF SYSTEMS: As in HPI. The rest of the review of systems is negative. HOME MEDICATION: Reglan, Lyrica, Tessalon, metformin, trazodone, Protonix, Cymbalta, Myrbetriq, prednisone, Crestor, cyclophosphamide, glargine, Requip, albuterol, KCl, Bumex, calcium, Humalog, cyclosporine. ALLERGIES: Muscle relaxers. PHYSICAL EXAMINATION: General: The patient is alert and oriented. Looks tired, but not in any acute distress. Vital Signs: Blood pressure is 124/63, pulse of 100, respirations 20, and temperature of 97. SHEENT: Normocephalic. There are pink palpebral conjunctivae. Sclerae anicteric. Neck: No JVD. No lymphadenopathy. Heart: Regular. No gallops. No rubs. Lungs: Coarse breath sounds bilaterally, but no significant crackles. No wheezing. Abdomen: Obese, soft. There is mild direct tenderness on the right upper quadrant. No rebound. Bowel sounds positive. Extremities: Negative for any calf tenderness or any significant pedal edema. IMPRESSION: 1. Abdominal pain. Etiology undetermined. At this time, I am going to check for amylase, lipase. We will also get a CAT scan of the abdomen and pelvis. In the meantime, will give her IV fluids and clear liquid diet and Zofran for nausea and vomiting. We will also send her stool because of the diarrhea. 2. Chest pain. We will also send for troponin and she had an EKG done in the clinic and this will be reviewed. 3. Rheumatoid arthritis. We will continue with her prednisone, but I am going to give her some stress doses of steroids. 4. Type 2 diabetes mellitus, on insulin. We will put her on sliding scale insulin for now while she is still on a clear liquid diet. The rest of the management as necessary. The patient does not want to be resuscitated or intubated. [facility] /[id number]
[2018-10-31] MEDS: cycloSPORINE Ophth Drops U/D Box of 30 EYEBOTH SCH (20:51)
[2018-11-01] MEDS: Sodium Chloride 0.9% 1,000 ML IV SCH ×3 (01:18→17:25)
[2018-11-01 06:57] LABS: ANION GAP 11.8
[2018-11-01] MEDS: Ondansetron 4 MG/2 ML SDV IVPUSH PRN ×2 (08:16→14:32)
[2018-11-01] MEDS: Morphine 2 MG/ML Syringe IVPUSH PRN ×2 (08:18→14:32)
[2018-11-01] MEDS: cycloSPORINE Ophth Drops U/D Box of 30 EYEBOTH SCH ×2 (09:00→20:56)
[2018-11-01] MEDS: predniSONE 10 MG Tab PO SCH (09:32)
[2018-11-01] MEDS: Enoxaparin 40 MG/0.4 ML Syringe SUBCUT SCH (09:33)
[2018-11-01] MEDS: Pantoprazole 40 MG Vial IVPUSH SCH (09:33)
[2018-11-01] MEDS: Insulin Lispro 100 Units/ML 3 ML Vial SUBCUT SCH ×3 (09:38→17:36)
--- NOTE | 2018-11-01 10:50 | PCM.PN ---
- General Info Date of Service: 11/01/18 Admission Dx/Problem (Free Text): Abdominal pain Subjective Update: No acute events overnight. Patient reports that she has been having abdominal pain for the past one month, worse with eating. Also had nausea, vomiting, and diarrhea. Denies melena, hematochezia, dysuria, or hematuria. Abdominal pain no longer radiates to the back. No fevers, chills, chest pain, or shortness of breath Functional Status: Reports: Pain Controlled - Review of Systems Systems Review Comment:: As per subjective update above. - Patient Data Vitals - Most Recent: Last Vital Signs Temp 98.2 F 11/01/18 08:00 Pulse 92 11/01/18 08:00 Resp 20 11/01/18 08:00 BP 115/54 L 11/01/18 08:00 Pulse Ox 95 11/01/18 08:00 Weight - Most Recent: 251 lb I&O - Last 24 Hours: Intake & Output 10/31/18 11/01/18 11/01/18 22:59 06:59 14:59 Intake Total 100 1525 Balance 100 1525 Lab Results Last 24 Hours: Laboratory Results - last 24 hr 10/31/18 10/31/18 10/31/18 Range/Units 16:20 16:20 16:49 WBC (5.0-10.0) 10^3/uL RBC (4.2-5.4) 10^6/uL Hgb (12.0-16.0) g/dL Hct (37.0-47.0) % MCV (80-100) fL MCH (27.0-34.0) pg MCHC (33.0-35.0) g/dL Plt Count (150-450) 10^3/uL Neut % (Auto) (42.2-75.2) % Lymph % (Auto) (20.5-50.1) % [place] % (Auto) (2-8) % Eos % (Auto) (1.0-3.0) % Baso % (Auto) (0.0-1.0) % Sodium (135-145) mmol/L Potassium (3.6-5.0) mmol/L Chloride (101-111) mmol/L Carbon Dioxide (21.0-31.0) mmol/L Anion Gap BUN (7-18) mg/dL Creatinine (0.6-1.3) mg/dL Est Cr Clr Drug Dosing mL/min Estimated GFR (MDRD) Glucose (74-105) mg/dL POC Glucose 163 H (70-105) mg/dl Calcium (8.4-10.2) mg/dl Troponin I < 0.02 (0.00-0.02) ng/ml Amylase 33 (28-100) U/L Lipase 28 (22-51) U/L 10/31/18 11/01/18 11/01/18 Range/Units 20:58 06:28 06:28 WBC 1.9 L (5.0-10.0) 10^3/uL RBC 2.80 L (4.2-5.4) 10^6/uL Hgb 9.2 L D (12.0-16.0) g/dL Hct 28.1 L (37.0-47.0) % MCV 100.4 H (80-100) fL MCH 32.9 (27.0-34.0) pg MCHC 32.7 L (33.0-35.0) g/dL Plt Count 174 (150-450) 10^3/uL Neut % (Auto) 74.4 (42.2-75.2) % Lymph % (Auto) 13.1 L (20.5-50.1) % [place] % (Auto) 11.0 H (2-8) % Eos % (Auto) 1.0 (1.0-3.0) % Baso % (Auto) 0.5 (0.0-1.0) % Sodium 139 (135-145) mmol/L Potassium 3.8 (3.6-5.0) mmol/L Chloride 106 (101-111) mmol/L Carbon Dioxide 25.0 (21.0-31.0) mmol/L Anion Gap 11.8 BUN 19 H (7-18) mg/dL Creatinine 1.4 H (0.6-1.3) mg/dL Est Cr Clr Drug Dosing 51.73 mL/min Estimated GFR (MDRD) 41 Glucose 102 (74-105) mg/dL POC Glucose 213 H (70-105) mg/dl Calcium 8.3 L (8.4-10.2) mg/dl Troponin I (0.00-0.02) ng/ml Amylase (28-100) U/L Lipase (22-51) U/L 11/01/18 Range/Units 07:56 WBC (5.0-10.0) 10^3/uL RBC (4.2-5.4) 10^6/uL Hgb (12.0-16.0) g/dL Hct (37.0-47.0) % MCV (80-100) fL MCH (27.0-34.0) pg MCHC (33.0-35.0) g/dL Plt Count (150-450) 10^3/uL Neut % (Auto) (42.2-75.2) % Lymph % (Auto) (20.5-50.1) % [place] % (Auto) (2-8) % Eos % (Auto) (1.0-3.0) % Baso % (Auto) (0.0-1.0) % Sodium (135-145) mmol/L Potassium (3.6-5.0) mmol/L Chloride (101-111) mmol/L Carbon Dioxide (21.0-31.0) mmol/L Anion Gap BUN (7-18) mg/dL Creatinine (0.6-1.3) mg/dL Est Cr Clr Drug Dosing mL/min Estimated GFR (MDRD) Glucose (74-105) mg/dL POC Glucose 99 (70-105) mg/dl Calcium (8.4-10.2) mg/dl Troponin I (0.00-0.02) ng/ml Amylase (28-100) U/L Lipase (22-51) U/L Med Orders - Current: Current Medications Acetaminophen (Tylenol) 650 mg PO Q4H PRN PRN Reason: Pain (Mild 1-3)/fever Calcium Carbonate/Glycine (Tums) 500 mg PO BIDM [facility] Cyclosporine (Restasis) 1 each EYEBOTH BID [facility] Last Admin: 10/31/18 20:51 Dose: 1 drop Enoxaparin Sodium (Lovenox) 40 mg SUBCUT DAILY [facility] Last Admin: 11/01/18 09:33 Dose: 40 mg Sodium Chloride (Normal Saline) 1,000 mls @ 125 mls/hr IV ASDIRECTED [facility] Last Admin: 11/01/18 09:21 Dose: 125 mls/hr Insulin Human Lispro (Humalog) 0 unit SUBCUT TIDMEALS [facility]; Protocol Last Admin: 11/01/18 09:38 Dose: Not Given Morphine Sulfate (Morphine) 2 mg IVPUSH Q2H PRN PRN Reason: Pain (severe 7-10) Last Admin: 11/01/18 08:18 Dose: 2 mg Ondansetron HCl (Zofran Odt) 4 mg PO Q4H PRN PRN Reason: nausea, able to take PO Ondansetron HCl (Zofran) 4 mg IVPUSH Q4H PRN PRN Reason: Nausea/Vomiting Last Admin: 11/01/18 08:16 Dose: 4 mg Oxycodone HCl (Oxycodone) 5 mg PO Q4H PRN PRN Reason: Pain (moderate 4-6) Pantoprazole Sodium (Protonix Iv) 40 mg IVPUSH DAILY [facility] Last Admin: 11/01/18 09:33 Dose: 40 mg Prednisone (Prednisone) 10 mg PO DAILY [facility] Last Admin: 11/01/18 09:32 Dose: 10 mg Sodium Chloride (Saline Flush) 10 ml FLUSH ASDIRECTED PRN PRN Reason: Keep Vein Open Discontinued Medications Hydrocortisone Sodium Succinate (Solu-Cortef) 80 mg IVPUSH ONETIME ONE Stop: 10/31/18 16:01 Last Admin: 10/31/18 16:51 Dose: 80 mg Iopamidol (Isovue-300 (61%)) 100 ml IVPUSH ONETIME ONE Stop: 10/31/18 16:05 Last Admin: 10/31/18 17:08 Dose: 75 ml - Exam General: Alert, Oriented, Cooperative, Mild Distress HEENT: Pupils Equal, Pupils Reactive, EOMI, Mucous Membr. Moist/[place] Neck: Supple Lungs: Clear to Auscultation, Normal Respiratory Effort Cardiovascular: Regular Rate, Regular Rhythm GI/Abdominal Exam: Normal Bowel Sounds, Soft, Tender, Other (Abdominal adiposity with pannus) Extremities: Normal Inspection, Non-Tender, No Pedal Edema Skin: Warm, Dry, Intact Neurological: No New Focal Deficit Psy/Mental Status: Alert, Normal Affect, Normal Mood - Problem List & Annotations (1) Abdominal pain SNOMED Code(s): 56916485 Code(s): R10.9 - UNSPECIFIED ABDOMINAL PAIN Status: Acute Current Visit: No Qualifiers: Abdominal location: generalized Qualified Code(s): R10.84 - Generalized abdominal pain (2) Diabetes mellitus SNOMED Code(s): 09084359 Code(s): E11.9 - TYPE 2 DIABETES MELLITUS WITHOUT COMPLICATIONS Status: Acute Current Visit: No (3) Peptic ulcer SNOMED Code(s): 35050175 Code(s): K27.9 - PEPTIC ULC, SITE UNSP, UNSP AC OR CHR, W/O HEMOR OR PERF Status: Acute Current Visit: No (4) Rheumatoid arthritis SNOMED Code(s): 43160361 Code(s): M06.9 - RHEUMATOID ARTHRITIS, UNSPECIFIED Status: Acute Current Visit: No - Problem List Review Problem List Initiated/Reviewed/Updated: Yes - My Orders Last 24 Hours: My Active Orders 11/01/18 10:50 Calcium Carbonate [Tums] 500 mg PO BIDM - Plan Plan:: #Abdominal pain #Probable peptic ulcer disease: - patient with one month of worsening abdominal pain, worse with eating. - Associated 50 lb weight loss over the past one month. - Likely gastric ulcer disease. - Increase PPI to BID dosing - Trial of Maalox - Will need EGD - Continue clear liquid diet - Continue IVF - Monitor electrolytes - Check H pylori #Chest pain: troponin and EKG normal. - Patient reports chest pain is resolved. - D/c telemetry #Rheumatoid arthritis: - Continue steroids #DM II: - SSI with hypoglycemia protocol. #Unintended weight loss: due to poor oral intake. - Clear liquid diet. - If abdominal pain improves with maalox and PPI, will hold of on nutrition consult. DVT PPx: Lovenox, encourage ambulation
[2018-11-01] MEDS: Calcium Carbonate 500 MG Tab.Chew PO SCH ×2 (11:02→17:38)
[2018-11-01] MEDS: oxyCODONE 5 MG Tab PO PRN ×2 (11:06→20:05)
[2018-11-01] MEDS: Acetaminophen 325 MG Tab PO PRN ×2 (14:40→20:07)
[2018-11-02] MEDS: Sodium Chloride 0.9% 1,000 ML IV SCH ×4 (01:38→23:04)
[2018-11-02] MEDS: Morphine 2 MG/ML Syringe IVPUSH PRN ×2 (01:48→09:28)
[2018-11-02] MEDS: Insulin Lispro 100 Units/ML 3 ML Vial SUBCUT SCH ×3 (08:34→17:11)
[2018-11-02] MEDS: Calcium Carbonate 500 MG Tab.Chew PO SCH (08:36)
[2018-11-02] MEDS: Pantoprazole 40 MG Vial IVPUSH SCH (09:19)
[2018-11-02] MEDS: predniSONE 10 MG Tab PO SCH (09:19)
[2018-11-02] MEDS: Aluminum Hydroxide/Magnesium Hydroxide/Simethicone Susp 30 ML Cup PO SCH ×3 (09:20→21:43)
[2018-11-02] MEDS: cycloSPORINE Ophth Drops U/D Box of 30 EYEBOTH SCH ×2 (09:20→22:35)
[2018-11-02] MEDS: Enoxaparin 40 MG/0.4 ML Syringe SUBCUT SCH (09:21)
[2018-11-02] MEDS: oxyCODONE 5 MG Tab PO PRN (10:41)
[2018-11-02] MEDS ORDERED: LORazepam 2 MG/ML Syringe IVPUSH ONE (13:40)
[2018-11-02] MEDS: fentaNYL 100 MCG/2 ML SDV IVPUSH PRN (14:19)
--- NOTE | 2018-11-02 14:43 | PCM.PN ---
- General Info Date of Service: 11/02/18 Admission Dx/Problem (Free Text): Abdominal pain Subjective Update: Patient had one bowel movement overnight. Today, she reports left lower quadrant pain that radiates to the left flank. Denies melena, hematochezia, dysuria, or hematuria. No fevers, chills, chest pain, or shortness of breath. Later this afternoon, patient reported chest pain and shortness of breath.Does not tolerate morphine. and orals upset her stomach. Functional Status: Reports: Other (Uncontrolled. ) - Patient Data Vitals - Most Recent: Last Vital Signs Temp 96.9 F 11/02/18 12:00 Pulse 76 11/02/18 12:00 Resp 20 11/02/18 12:00 BP 111/78 11/02/18 08:00 Pulse Ox 99 11/02/18 12:00 Weight - Most Recent: 251 lb I&O - Last 24 Hours: Intake & Output 11/01/18 11/02/18 11/02/18 22:59 06:59 14:59 Intake Total 1240 120 Output Total 500 Balance 740 120 Lab Results Last 24 Hours: Laboratory Results - last 24 hr 11/01/18 11/02/18 11/02/18 Range/Units 16:51 02:22 07:50 POC Glucose 217 H 110 H 124 H (70-105) mg/dl Urine Color (YELLOW) Urine Appearance (CLEAR) Urine pH (5.0-9.0) Ur Specific [place] (1.005-1.030) Urine Protein (NEGATIVE) Urine Glucose (UA) (NEGATIVE) Urine Ketones (NEGATIVE) Urine Occult Blood (NEGATIVE) Urine Nitrite (NEGATIVE) Urine Bilirubin (NEGATIVE) Urine Urobilinogen (0.2-1.0) mg/dL Ur Leukocyte Esterase (NEGATIVE) Urine RBC /HPF Urine WBC (0-5/HPF) /HPF Ur Epithelial Cells (NOT SEEN) /HPF Amorphous Sediment (NOT SEEN) /HPF Urine Bacteria (0-FEW/HPF) /HPF Urine Mucus (NOT SEEN) /LPF 11/02/18 11/02/18 Range/Units 11:20 11:28 POC Glucose 154 H (70-105) mg/dl Urine Color Yellow (YELLOW) Urine Appearance Clear (CLEAR) Urine pH 6.5 (5.0-9.0) Ur Specific [place] 1.020 (1.005-1.030) Urine Protein 100 H (NEGATIVE) Urine Glucose (UA) Negative (NEGATIVE) Urine Ketones Negative (NEGATIVE) Urine Occult Blood Trace-intact H (NEGATIVE) Urine Nitrite Negative (NEGATIVE) Urine Bilirubin Negative (NEGATIVE) Urine Urobilinogen 0.2 (0.2-1.0) mg/dL Ur Leukocyte Esterase Negative (NEGATIVE) Urine RBC 5-10 H /HPF Urine WBC 0-5 (0-5/HPF) /HPF Ur Epithelial Cells Few (NOT SEEN) /HPF Amorphous Sediment Few (NOT SEEN) /HPF Urine Bacteria Occasional (0-FEW/HPF) /HPF Urine Mucus Occasional (NOT SEEN) /LPF Qasim Results Last 24 Hours: Microbiology 10/31/18 21:20 Shiga Toxin I & II - Final Stool / Feces 10/31/18 21:20 Stool Culture - Preliminary Stool / Feces NORMAL ENTERIC SUDHIR. NO SALMONELLA, SHIGELLA, CAMPYLOBACTER OR E.COLI O157 ISOLATED. Med Orders - Current: Current Medications Acetaminophen (Tylenol) 650 mg PO Q4H PRN PRN Reason: Pain (Mild 1-3)/fever Last Admin: 11/01/18 20:07 Dose: 650 mg Al Hydroxide/Mg Hydroxide (Mag-Al Plus) 30 ml PO BID [facility] Last Admin: 11/02/18 09:20 Dose: 30 ml Cyclosporine (Restasis) 1 each EYEBOTH BID [facility] Last Admin: 11/02/18 09:20 Dose: 1 drop Enoxaparin Sodium (Lovenox) 40 mg SUBCUT DAILY [facility] Last Admin: 11/02/18 09:21 Dose: 40 mg Fentanyl (Sublimaze) 25 mcg IVPUSH Q4H PRN PRN Reason: Pain Last Admin: 11/02/18 14:19 Dose: 25 mcg Sodium Chloride (Normal Saline) 1,000 mls @ 125 mls/hr IV ASDIRECTED [facility] Last Admin: 11/02/18 09:30 Dose: 125 mls/hr Insulin Human Lispro (Humalog) 0 unit SUBCUT TIDMEALS [facility]; Protocol Last Admin: 11/02/18 13:02 Dose: 3 units Ondansetron HCl (Zofran Odt) 4 mg PO Q4H PRN PRN Reason: nausea, able to take PO Ondansetron HCl (Zofran) 4 mg IVPUSH Q4H PRN PRN Reason: Nausea/Vomiting Last Admin: 11/01/18 14:32 Dose: 4 mg Oxycodone HCl (Oxycodone) 5 mg PO Q4H PRN PRN Reason: Pain (moderate 4-6) Last Admin: 11/02/18 10:41 Dose: 5 mg Pantoprazole Sodium (Protonix Iv) 40 mg IVPUSH DAILY [facility] Last Admin: 11/02/18 09:19 Dose: 40 mg Prednisone (Prednisone) 10 mg PO DAILY [facility] Last Admin: 11/02/18 09:19 Dose: 10 mg Sodium Chloride (Saline Flush) 10 ml FLUSH ASDIRECTED PRN PRN Reason: Keep Vein Open Discontinued Medications Calcium Carbonate/Glycine (Tums) 500 mg PO BIDM [facility] Last Admin: 11/02/18 08:36 Dose: Not Given Hydrocortisone Sodium Succinate (Solu-Cortef) 80 mg IVPUSH ONETIME ONE Stop: 10/31/18 16:01 Last Admin: 10/31/18 16:51 Dose: 80 mg Iopamidol (Isovue-300 (61%)) 100 ml IVPUSH ONETIME ONE Stop: 10/31/18 16:05 Last Admin: 10/31/18 17:08 Dose: 75 ml Lorazepam (Ativan) 1 mg IVPUSH ONETIME ONE Stop: 11/02/18 13:41 Last Admin: 11/02/18 14:19 Dose: 1 mg Morphine Sulfate (Morphine) 2 mg IVPUSH Q2H PRN PRN Reason: Pain (severe 7-10) Last Admin: 11/02/18 09:28 Dose: 2 mg - Exam General: Alert, Oriented, Mild Distress HEENT: Pupils Equal, Pupils Reactive, Mucous Membr. Moist/[place]ck: Supple Lungs: Clear to Auscultation, Normal Respiratory Effort Cardiovascular: Regular Rhythm, Tachycardia GI/Abdominal Exam: Normal Bowel Sounds, Soft, No Distention, Tender Back Exam: CVA Tenderness (L) Extremities: Normal Inspection, Normal Range of Motion, Non-Tender, No Pedal Edema Skin: Warm, Dry, Intact Neurological: No New Focal Deficit Psy/Mental Status: Alert, Normal Affect, Normal Mood EKG INTERPRETATION EKG Date: 11/02/18 Rhythm: NSR [place]: Normal P-Wave: Present QRS: Normal ST-T: Normal QT: Normal - Problem List & Annotations (1) Abdominal pain SNOMED Code(s): 56871754 Code(s): R10.9 - UNSPECIFIED ABDOMINAL PAIN Status: Acute Current Visit: No Qualifiers: Abdominal location: generalized Qualified Code(s): R10.84 - Generalized abdominal pain (2) Diabetes mellitus SNOMED Code(s): 34297958 Code(s): E11.9 - TYPE 2 DIABETES MELLITUS WITHOUT COMPLICATIONS Status: Acute Current Visit: No (3) Peptic ulcer SNOMED Code(s): 39355195 Code(s): K27.9 - PEPTIC ULC, SITE UNSP, UNSP AC OR CHR, W/O HEMOR OR PERF Status: Acute Current Visit: No (4) Rheumatoid arthritis SNOMED Code(s): 24425969 Code(s): M06.9 - RHEUMATOID ARTHRITIS, UNSPECIFIED Status: Acute Current Visit: No (5) Chest pain SNOMED Code(s): 07400930 Code(s): R07.9 - CHEST PAIN, UNSPECIFIED Status: Acute Current Visit: Yes (6) Left flank pain SNOMED Code(s): 866283971 Code(s): R10.9 - UNSPECIFIED ABDOMINAL PAIN Status: Acute Current Visit: Yes (7) Diarrhea SNOMED Code(s): 19054743 Code(s): R19.7 - DIARRHEA, UNSPECIFIED Status: Acute Current Visit: Yes (8) Shortness of breath SNOMED Code(s): 519193990 Code(s): R06.02 - SHORTNESS OF BREATH Status: Acute Current Visit: No - Problem List Review Problem List Initiated/Reviewed/Updated: Yes - My Orders Last 24 Hours: My Active Orders 11/01/18 19:50 CLOSTRIDIUM DIFFICILE TOX RFLX [MREF] Routine H PYLORI STOOL ANTIGEN [MREF] Routine 11/02/18 09:00 Alum Hydrox/Mag Hydrox/Simeth [Mag-Al Plus] 30 ml PO BID 11/02/18 13:38 fentaNYL [Sublimaze] 25 mcg IVPUSH Q4H PRN 11/02/18 14:18 EKG Documentation Completion [RC] STAT Chest 1V Frontal [CR] Routine COMPREHENSIVE METABOLIC PN,CMP [CHEM] Stat D-DIMER QUANTITATIVE [COAG] Stat TROPONIN I [CHEM] Stat 11/02/18 14:20 EKG 12 Lead [EKG Documentation Completion] [RC] STAT 11/02/18 14:21 Chest 1V Frontal [CR] Stat TROPONIN I [CHEM] Stat 11/02/18 Lunch Soft Diet [DIET] - Plan Plan:: #Abdominal pain #Probable peptic ulcer disease: - patient with one month of worsening abdominal pain, worse with eating. - Associated 50 lb weight loss over the past one month. - Likely gastric ulcer disease. - Increase PPI to BID dosing - Trial of Maalox - Will need EGD - Continue clear liquid diet - Continue IVF - Monitor electrolytes - Check H pylori - C diff pending #Left flank pain: - UA negative for nitrite and leukocyte esterase - Scant blood on UA - Fentanyl IV - D/c morphine IV #Chest pain: #Shortness of breath: - Similar episode in the ED. - Initial troponin and EKG normal. - Repeat troponin and EKG; EKG reviewed. - Check D-dimer and CMP - Patient reports chest pain is resolved. - Place on telemetry #Rheumatoid arthritis: - Continue steroids #DM II: - SSI with hypoglycemia protocol. #Unintended weight loss: due to poor oral intake. - Clear liquid diet, advance as tolerated. DVT PPx: Lovenox, encourage ambulation
--- NOTE | 2018-11-02 15:01 | CR ---
Clinical history: 43-year-old female shortness of breath. Interpretation: Overall poor inspiratory effort morbidly obese female (pickwickian). Chronic mild blunting of the right costophrenic sulcus. No acute new cardiopulmonary abnormality since PA films 31 October or September,. No new lung mass, hilar lymphadenopathy, focal lobar pneumonia, atelectasis or collapse. No pneumothorax. CONCLUSION: No new cardiopulmonary abnormality.
[2018-11-02 15:05] LABS: ANION GAP 12.9
[2018-11-03] MEDS: Sodium Chloride 0.9% 1,000 ML IV SCH ×2 (06:49→18:59)
[2018-11-03] MEDS: Ondansetron 4 MG/2 ML SDV IVPUSH PRN (09:11)
[2018-11-03] MEDS: Enoxaparin 40 MG/0.4 ML Syringe SUBCUT SCH (09:12)
[2018-11-03] MEDS: fentaNYL 100 MCG/2 ML SDV IVPUSH PRN (09:12)
[2018-11-03] MEDS: Aluminum Hydroxide/Magnesium Hydroxide/Simethicone Susp 30 ML Cup PO SCH ×2 (09:13→20:59)
[2018-11-03] MEDS: predniSONE 10 MG Tab PO SCH (09:13)
[2018-11-03] MEDS: Pantoprazole 40 MG Vial IVPUSH SCH (09:16)
[2018-11-03] MEDS: Insulin Lispro 100 Units/ML 3 ML Vial SUBCUT SCH ×3 (10:18→17:24)
--- NOTE | 2018-11-03 10:21 | PCM.PN ---
- General Info Date of Service: 11/03/18 Admission Dx/Problem (Free Text): Abdominal pain Subjective Update: No acute events overnight. Reports that pain is improved. Denies melena, hematochezia, dysuria, or hematuria. No fevers, chills, chest pain, or shortness of breath. Functional Status: Reports: Pain Controlled, Tolerating Diet - Review of Systems General: Reports: No Symptoms HEENT: Reports: No Symptoms Pulmonary: Reports: No Symptoms Cardiovascular: Reports: No Symptoms Gastrointestinal: Reports: Abdominal Pain Genitourinary: Reports: No Symptoms Musculoskeletal: Reports: No Symptoms Skin: Reports: No Symptoms Neurological: Reports: No Symptoms Psychiatric: Reports: No Symptoms - Patient Data Vitals - Most Recent: Last Vital Signs Temp 97.4 F 11/02/18 23:16 Pulse 93 11/02/18 23:16 Resp 20 11/02/18 23:16 BP 115/54 L 11/02/18 23:16 Pulse Ox 98 11/02/18 23:16 Weight - Most Recent: 251 lb I&O - Last 24 Hours: Intake & Output 11/02/18 11/03/18 11/03/18 22:59 06:59 14:59 Intake Total 1020 2425 Output Total 1400 Balance 1020 1025 Lab Results Last 24 Hours: Laboratory Results - last 24 hr 11/02/18 11/02/18 11/02/18 Range/Units 11:20 11:28 14:22 D-Dimer, Quantitative (0-400) ng/mL Sodium (135-145) mmol/L Potassium (3.6-5.0) mmol/L Chloride (101-111) mmol/L Carbon Dioxide (21.0-31.0) mmol/L Anion Gap BUN (7-18) mg/dL Creatinine (0.6-1.3) mg/dL Est Cr Clr Drug Dosing mL/min Estimated GFR (MDRD) BUN/Creatinine Ratio Glucose (74-105) mg/dL POC Glucose 154 H 220 H (70-105) mg/dl Calcium (8.4-10.2) mg/dl Total Bilirubin (0.2-1.0) mg/dL AST (10-42) IU/L ALT (10-60) IU/L Alkaline Phosphatase (42-121) IU/L Troponin I (0.00-0.02) ng/ml Total Protein (6.7-8.2) g/dl Albumin (3.2-5.5) g/dl Globulin Albumin/Globulin Ratio Urine Color Yellow (YELLOW) Urine Appearance Clear (CLEAR) Urine pH 6.5 (5.0-9.0) Ur Specific [place] 1.020 (1.005-1.030) Urine Protein 100 H (NEGATIVE) Urine Glucose (UA) Negative (NEGATIVE) Urine Ketones Negative (NEGATIVE) Urine Occult Blood Trace-intact H (NEGATIVE) Urine Nitrite Negative (NEGATIVE) Urine Bilirubin Negative (NEGATIVE) Urine Urobilinogen 0.2 (0.2-1.0) mg/dL Ur Leukocyte Esterase Negative (NEGATIVE) Urine RBC 5-10 H /HPF Urine WBC 0-5 (0-5/HPF) /HPF Ur Epithelial Cells Few (NOT SEEN) /HPF Amorphous Sediment Few (NOT SEEN) /HPF Urine Bacteria Occasional (0-FEW/HPF) /HPF Urine Mucus Occasional (NOT SEEN) /LPF 11/02/18 11/02/18 11/02/18 Range/Units 14:33 14:33 14:33 D-Dimer, Quantitative 348 (0-400) ng/mL Sodium 139 (135-145) mmol/L Potassium 3.9 (3.6-5.0) mmol/L Chloride 109 (101-111) mmol/L Carbon Dioxide 21.0 (21.0-31.0) mmol/L Anion Gap 12.9 BUN 11 (7-18) mg/dL Creatinine 1.2 (0.6-1.3) mg/dL Est Cr Clr Drug Dosing 60.35 mL/min Estimated GFR (MDRD) 49 BUN/Creatinine Ratio 9.16 Glucose 222 H (74-105) mg/dL POC Glucose (70-105) mg/dl Calcium 8.4 (8.4-10.2) mg/dl Total Bilirubin 0.5 (0.2-1.0) mg/dL AST 24 (10-42) IU/L ALT 12 (10-60) IU/L Alkaline Phosphatase 47 (42-121) IU/L Troponin I < 0.02 (0.00-0.02) ng/ml Total Protein 6.5 L (6.7-8.2) g/dl Albumin 3.3 (3.2-5.5) g/dl Globulin 3.2 Albumin/Globulin Ratio 1.03 Urine Color (YELLOW) Urine Appearance (CLEAR) Urine pH (5.0-9.0) Ur Specific [place] (1.005-1.030) Urine Protein (NEGATIVE) Urine Glucose (UA) (NEGATIVE) Urine Ketones (NEGATIVE) Urine Occult Blood (NEGATIVE) Urine Nitrite (NEGATIVE) Urine Bilirubin (NEGATIVE) Urine Urobilinogen (0.2-1.0) mg/dL Ur Leukocyte Esterase (NEGATIVE) Urine RBC /HPF Urine WBC (0-5/HPF) /HPF Ur Epithelial Cells (NOT SEEN) /HPF Amorphous Sediment (NOT SEEN) /HPF Urine Bacteria (0-FEW/HPF) /HPF Urine Mucus (NOT SEEN) /LPF 11/02/18 11/03/18 Range/Units 16:34 07:43 D-Dimer, Quantitative (0-400) ng/mL Sodium (135-145) mmol/L Potassium (3.6-5.0) mmol/L Chloride (101-111) mmol/L Carbon Dioxide (21.0-31.0) mmol/L Anion Gap BUN (7-18) mg/dL Creatinine (0.6-1.3) mg/dL Est Cr Clr Drug Dosing mL/min Estimated GFR (MDRD) BUN/Creatinine Ratio Glucose (74-105) mg/dL POC Glucose 174 H 92 (70-105) mg/dl Calcium (8.4-10.2) mg/dl Total Bilirubin (0.2-1.0) mg/dL AST (10-42) IU/L ALT (10-60) IU/L Alkaline Phosphatase (42-121) IU/L Troponin I (0.00-0.02) ng/ml Total Protein (6.7-8.2) g/dl Albumin (3.2-5.5) g/dl Globulin Albumin/Globulin Ratio Urine Color (YELLOW) Urine Appearance (CLEAR) Urine pH (5.0-9.0) Ur Specific [place] (1.005-1.030) Urine Protein (NEGATIVE) Urine Glucose (UA) (NEGATIVE) Urine Ketones (NEGATIVE) Urine Occult Blood (NEGATIVE) Urine Nitrite (NEGATIVE) Urine Bilirubin (NEGATIVE) Urine Urobilinogen (0.2-1.0) mg/dL Ur Leukocyte Esterase (NEGATIVE) Urine RBC /HPF Urine WBC (0-5/HPF) /HPF Ur Epithelial Cells (NOT SEEN) /HPF Amorphous Sediment (NOT SEEN) /HPF Urine Bacteria (0-FEW/HPF) /HPF Urine Mucus (NOT SEEN) /LPF Qasim Results Last 24 Hours: Microbiology 11/01/18 19:50 Clostridioides difficile (PCR) - Final Rectum 10/31/18 21:20 Stool Culture - Final Stool / Feces NORMAL ENTERIC SUDHIR. NO SALMONELLA, SHIGELLA, CAMPYLOBACTER OR E.COLI O157 ISOLATED. 10/31/18 21:20 Shiga Toxin I & II - Final Stool / Feces Med Orders - Current: Current Medications Acetaminophen (Tylenol) 650 mg PO Q4H PRN PRN Reason: Pain (Mild 1-3)/fever Last Admin: 11/01/18 20:07 Dose: 650 mg Al Hydroxide/Mg Hydroxide (Mag-Al Plus) 30 ml PO BID [facility] Last Admin: 11/03/18 09:13 Dose: 30 ml Cyclosporine (Restasis) 1 each EYEBOTH BID [facility] Last Admin: 11/02/18 22:35 Dose: Not Given Enoxaparin Sodium (Lovenox) 40 mg SUBCUT DAILY [facility] Last Admin: 11/03/18 09:12 Dose: 40 mg Fentanyl (Sublimaze) 25 mcg IVPUSH Q4H PRN PRN Reason: Pain Last Admin: 11/03/18 09:12 Dose: 25 mcg Sodium Chloride (Normal Saline) 1,000 mls @ 125 mls/hr IV ASDIRECTED [facility] Last Admin: 11/03/18 06:49 Dose: 125 mls/hr Insulin Human Lispro (Humalog) 0 unit SUBCUT TIDMEALS [facility]; Protocol Last Admin: 11/02/18 17:11 Dose: 3 units Ondansetron HCl (Zofran Odt) 4 mg PO Q4H PRN PRN Reason: nausea, able to take PO Last Admin: 11/02/18 23:04 Dose: 4 mg Ondansetron HCl (Zofran) 4 mg IVPUSH Q4H PRN PRN Reason: Nausea/Vomiting Last Admin: 11/03/18 09:11 Dose: 4 mg Oxycodone HCl (Oxycodone) 5 mg PO Q4H PRN PRN Reason: Pain (moderate 4-6) Last Admin: 11/02/18 10:41 Dose: 5 mg Pantoprazole Sodium (Protonix Iv) 40 mg IVPUSH DAILY [facility] Last Admin: 11/03/18 09:16 Dose: 40 mg Prednisone (Prednisone) 10 mg PO DAILY [facility] Last Admin: 11/03/18 09:13 Dose: 10 mg Sodium Chloride (Saline Flush) 10 ml FLUSH ASDIRECTED PRN PRN Reason: Keep Vein Open Discontinued Medications Calcium Carbonate/Glycine (Tums) 500 mg PO BIDM [facility] Last Admin: 11/02/18 08:36 Dose: Not Given Hydrocortisone Sodium Succinate (Solu-Cortef) 80 mg IVPUSH ONETIME ONE Stop: 10/31/18 16:01 Last Admin: 10/31/18 16:51 Dose: 80 mg Iopamidol (Isovue-300 (61%)) 100 ml IVPUSH ONETIME ONE Stop: 10/31/18 16:05 Last Admin: 10/31/18 17:08 Dose: 75 ml Lorazepam (Ativan) 1 mg IVPUSH ONETIME ONE Stop: 11/02/18 13:41 Last Admin: 11/02/18 14:19 Dose: 1 mg Morphine Sulfate (Morphine) 2 mg IVPUSH Q2H PRN PRN Reason: Pain (severe 7-10) Last Admin: 11/02/18 09:28 Dose: 2 mg - Exam General: Alert, Oriented, Cooperative, No Acute Distress HEENT: Pupils Equal, Pupils Reactive, Mucous Membr. Moist/[place] Neck: Supple Lungs: Clear to Auscultation, Normal Respiratory Effort Cardiovascular: Regular Rate, Regular Rhythm GI/Abdominal Exam: Normal Bowel Sounds, Soft, No Distention, Tender Extremities: Normal Inspection, Non-Tender, No Pedal Edema Skin: Warm, Dry, Intact Neurological: No New Focal Deficit Psy/Mental Status: Alert, Normal Affect, Normal Mood - Problem List & Annotations (1) Abdominal pain SNOMED Code(s): 16021482 Code(s): R10.9 - UNSPECIFIED ABDOMINAL PAIN Status: Acute Current Visit: No Qualifiers: Abdominal location: generalized Qualified Code(s): R10.84 - Generalized abdominal pain (2) Diabetes mellitus SNOMED Code(s): 74058284 Code(s): E11.9 - TYPE 2 DIABETES MELLITUS WITHOUT COMPLICATIONS Status: Acute Current Visit: No (3) Peptic ulcer SNOMED Code(s): 64599099 Code(s): K27.9 - PEPTIC ULC, SITE UNSP, UNSP AC OR CHR, W/O HEMOR OR PERF Status: Acute Current Visit: No (4) Rheumatoid arthritis SNOMED Code(s): 73228048 Code(s): M06.9 - RHEUMATOID ARTHRITIS, UNSPECIFIED Status: Acute Current Visit: No (5) Chest pain SNOMED Code(s): 14721456 Code(s): R07.9 - CHEST PAIN, UNSPECIFIED Status: Acute Current Visit: Yes (6) Left flank pain SNOMED Code(s): 600159259 Code(s): R10.9 - UNSPECIFIED ABDOMINAL PAIN Status: Acute Current Visit: Yes (7) Diarrhea SNOMED Code(s): 25924588 Code(s): R19.7 - DIARRHEA, UNSPECIFIED Status: Acute Current Visit: Yes (8) Shortness of breath SNOMED Code(s): 318599631 Code(s): R06.02 - SHORTNESS OF BREATH Status: Acute Current Visit: No - Problem List Review Problem List Initiated/Reviewed/Updated: Yes - My Orders Last 24 Hours: My Active Orders 11/02/18 13:38 fentaNYL [Sublimaze] 25 mcg IVPUSH Q4H PRN 11/02/18 Lunch Soft Diet [DIET] - Plan Plan:: #Abdominal pain #Probable peptic ulcer disease: - patient with one month of worsening abdominal pain, worse with eating. - Associated 50 lb weight loss over the past one month. - Likely gastric ulcer disease. - Continue PPI BID - Maalox - Will need EGD, Dr Restrepo would want to pursue as outpatient. - Continue clear liquid diet - Continue IVF - Monitor electrolytes - C diff pending #Left flank pain: - UA negative for nitrite and leukocyte esterase - Scant blood on UA - Fentanyl IV #Chest pain: #Shortness of breath: - Similar episode in the ED. - Initial troponin and EKG normal. - Repeat troponin and EKG; EKG reviewed. - Check D-dimer and CMP - Patient reports chest pain is resolved. - Place on telemetry #Rheumatoid arthritis: - Continue steroids #DM II: - SSI with hypoglycemia protocol. #Unintended weight loss: due to poor oral intake. - Advance as tolerated. DVT PPx: Lovenox, encourage ambulation
[2018-11-03] MEDS: Loperamide 2 MG Cap PO PRN ×2 (11:20→16:33)
[2018-11-03] MEDS: cycloSPORINE Ophth Drops U/D Box of 30 EYEBOTH SCH ×2 (11:21→20:59)
[2018-11-03] MEDS ORDERED: fentaNYL 100 MCG/2 ML SDV IVPUSH PRN (12:38)
[2018-11-03] MEDS: oxyCODONE 5 MG Tab PO PRN ×2 (16:49→21:12)
[2018-11-04] MEDS: Insulin Lispro 100 Units/ML 3 ML Vial SUBCUT SCH ×2 (07:46→12:47)
[2018-11-04 08:13] VITALS: BP 120/47
[2018-11-04] MEDS: Pantoprazole 40 MG Vial IVPUSH SCH (08:19)
[2018-11-04] MEDS: predniSONE 10 MG Tab PO SCH (08:19)
[2018-11-04] MEDS: Aluminum Hydroxide/Magnesium Hydroxide/Simethicone Susp 30 ML Cup PO SCH (08:19)
[2018-11-04] MEDS: oxyCODONE 5 MG Tab PO PRN (08:19)
[2018-11-04] MEDS: Enoxaparin 40 MG/0.4 ML Syringe SUBCUT SCH (08:19)
[2018-11-04] MEDS: cycloSPORINE Ophth Drops U/D Box of 30 EYEBOTH SCH (08:20)
--- NOTE | 2018-11-04 11:28 | PCM.DCSUM1 ---
Discharge Summary - Hospital Course Free Text/Narrative:: Patient is a 43-y.o female with medical history significant for DM II on insulin, HTN, ANCA positive vasculitis, chronic pain syndrome followed by Dr. Ron, and obesity who was admitted for abdominal pain and diarrhea. CT abdomen/pelvis showed diverticulosis without diverticulitis. Otherwise was unremarkable. She required IVF and IV pain medications. C diff was negative. She was started on loperamide and Maalox. Pain improved and patient requested to be discharged home on Maalox. She is to follow up with PCP. She will need EGD as outpatient. HPI Initial Comments: See H and P by Dr. Acosta Diagnosis: Stroke: No - Discharge Data Discharge Date: 11/04/18 Discharge Disposition: Home, Self-Care 01 Condition: Good - Discharge Diagnosis/Problem(s) (1) Abdominal pain SNOMED Code(s): 50792635 ICD Code: R10.9 - UNSPECIFIED ABDOMINAL PAIN Status: Acute Current Visit : No Qualifiers: Abdominal location: generalized Qualified Code(s): R10.84 - Generalized abdominal pain (2) Diabetes mellitus SNOMED Code(s): 72941112 ICD Code: E11.9 - TYPE 2 DIABETES MELLITUS WITHOUT COMPLICATIONS Status: Acute Current Visit: No (3) Peptic ulcer SNOMED Code(s): 91458555 ICD Code: K27.9 - PEPTIC ULC, SITE UNSP, UNSP AC OR CHR, W/O HEMOR OR PERF Status: Acute Current Visit: No (4) Rheumatoid arthritis SNOMED Code(s): 14259429 ICD Code: M06.9 - RHEUMATOID ARTHRITIS, UNSPECIFIED Status: Acute Current Visit: No (5) Chest pain SNOMED Code(s): 42370507 ICD Code: R07.9 - CHEST PAIN, UNSPECIFIED Status: Acute Current Visit: Yes (6) Left flank pain SNOMED Code(s): 100686668 ICD Code: R10.9 - UNSPECIFIED ABDOMINAL PAIN Status: Acute Current Visit : Yes (7) Diarrhea SNOMED Code(s): 97812528 ICD Code: R19.7 - DIARRHEA, UNSPECIFIED Status: Acute Current Visit: Yes (8) Shortness of breath SNOMED Code(s): 581423490 ICD Code: R06.02 - SHORTNESS OF BREATH Status: Acute Current Visit: No - Discharge Plan *PRESCRIPTION DRUG MONITORING PROGRAM REVIEWED*: No *COPY OF PRESCRIPTION DRUG MONITORING REPORT IN PATIENT MAURICIO: No Prescriptions/Med Rec: Alum Hydrox/Mag Hydrox/Simeth [Mag-Al Plus] 30 ml PO BID #30 cup Home Medications: Home Meds Pantoprazole [Pantoprazole Sodium] 40 mg PO DAILY 09/13/14 [History] rOPINIRole [Requip] 0.25 mg PO BEDTIME 08/13/15 [History] cycloSPORINE [Restasis] 1 drop EYEBOTH BID 04/14/16 [History] Bumetanide [Bumex] 1 mg PO BID 04/24/18 [History] Potassium Chloride [Klor-Con 10] 10 meq PO BID 04/24/18 [History] atorvaSTATin [Lipitor] 20 mg PO BEDTIME 04/24/18 [History] metFORMIN HCl [Metformin HCl] 1,000 mg PO BIDMEALS 04/24/18 [History] metOLazone [Metolazone] 5 mg PO DAILY 04/24/18 [History] Cyclophosphamide 250 mg PO DAILY 10/31/18 [History] DULoxetine [Cymbalta] 60 mg PO DAILY 10/31/18 [History] Insulin Aspart [NovoLOG] 10 unit SQ TIDMEALS 10/31/18 [History] Insulin Glargine,Hum.Rec.Anlog [Basaglar Kwikpen U-100] 37 unit SQ BID 10/31/18 [History] Metoclopramide HCl 10 mg PO TID PRN 10/31/18 [History] Mirabegron [Myrbetriq] 25 mg PO DAILY 10/31/18 [History] Pregabalin [Lyrica] 150 mg PO BID 10/31/18 [History] Rosuvastatin Calcium 20 mg PO BEDTIME 10/31/18 [History] oxyCODONE HCl/Acetaminophen [Percocet 7.5-325 mg Tablet] 1 tab PO TID PRN [History] predniSONE [Prednisone] 10 mg PO DAILY 10/31/18 [History] traZODone HCl [Trazodone HCl] 100 mg PO BEDTIME PRN 10/31/18 [History] Alum Hydrox/Mag Hydrox/Simeth [Mag-Al Plus] 30 ml PO BID #30 cup 11/04/18 [Rx] Patient Handouts: Type 2 Diabetes Mellitus, Diagnosis, Adult, Insulin Treatment for Diabetes Mellitus, Diverticulitis, [id number], Systemic Lupus Erythematosus, Adult, Aluminum hydroxide oral suspension, Diverticulitis, Nausea and Vomiting, Adult, [id number], Aluminum Hydroxide; Magnesium Hydroxide; Simethicone oral suspension - Discharge Summary/Plan Comment DC Time >30 min.: Yes - General Info Date of Service: 11/04/18 Admission Dx/Problem (Free Text: Abdominal pain Subjective Update: No acute events overnight. Reports that pain is improved. States Maalox has helped her a lot and would like to be discharged home with maalox. Denies melena , hematochezia, dysuria, or hematuria. No fevers, chills, chest pain, or shortness of breath. - Patient Data Vitals - Most Recent: Last Vital Signs Temp 99.4 F 11/04/18 08:00 Pulse 81 11/04/18 08:00 Resp 18 11/04/18 08:00 BP 120/47 L 11/04/18 08:00 Pulse Ox 98 11/04/18 08:00 Weight - Most Recent: 251 lb I&O - Last 24 hours: Intake & Output 11/03/18 11/04/18 11/04/18 22:59 06:59 14:59 Intake Total 1366 935 Balance 1366 935 Lab Results - Last 24 hrs: Laboratory Results - last 24 hr 11/03/18 11/03/18 11/04/18 Range/Units 11:53 16:52 07:43 POC Glucose 154 H 162 H 85 (70-105) mg/dl JHONNY Results - Last 24 hrs: Microbiology 11/01/18 19:50 Clostridioides difficile (PCR) - Final Rectum 10/31/18 21:20 Stool Culture - Final Stool / Feces NORMAL ENTERIC SUDHIR. NO SALMONELLA, SHIGELLA, CAMPYLOBACTER OR E.COLI O157 ISOLATED. Med Orders - Current: Current Medications Acetaminophen (Tylenol) 650 mg PO Q4H PRN PRN Reason: Pain (Mild 1-3)/fever Last Admin: 11/01/18 20:07 Dose: 650 mg Al Hydroxide/Mg Hydroxide (Mag-Al Plus) 30 ml PO BID [facility] Last Admin: 11/04/18 08:19 Dose: 30 ml Cyclosporine (Restasis) 1 each EYEBOTH BID [facility] Last Admin: 11/04/18 08:20 Dose: 1 drop Enoxaparin Sodium (Lovenox) 40 mg SUBCUT DAILY [facility] Last Admin: 11/04/18 08:19 Dose: 40 mg Fentanyl (Sublimaze) 25 mcg IVPUSH Q6H PRN PRN Reason: Pain Last Admin: 11/04/18 03:16 Dose: 25 mcg Sodium Chloride (Normal Saline) 1,000 mls @ 50 mls/hr IV ASDIRECTED [facility] Last Admin: 11/03/18 18:59 Dose: 50 mls/hr Insulin Human Lispro (Humalog) 0 unit SUBCUT TIDMEALS [facility]; Protocol Last Admin: 11/04/18 07:46 Dose: Not Given Loperamide HCl (Imodium) 2 mg PO Q4H PRN PRN Reason: Diarrhea Last Admin: 11/03/18 16:33 Dose: 2 mg Ondansetron HCl (Zofran Odt) 4 mg PO Q4H PRN PRN Reason: nausea, able to take PO Last Admin: 11/02/18 23:04 Dose: 4 mg Ondansetron HCl (Zofran) 4 mg IVPUSH Q4H PRN PRN Reason: Nausea/Vomiting Last Admin: 11/03/18 09:11 Dose: 4 mg Oxycodone HCl (Oxycodone) 5 mg PO Q4H PRN PRN Reason: Pain (moderate 4-6) Last Admin: 11/04/18 08:19 Dose: 5 mg Pantoprazole Sodium (Protonix Iv) 40 mg IVPUSH DAILY [facility] Last Admin: 11/04/18 08:19 Dose: 40 mg Prednisone (Prednisone) 10 mg PO DAILY [facility] Last Admin: 11/04/18 08:19 Dose: 10 mg Sodium Chloride (Saline Flush) 10 ml FLUSH ASDIRECTED PRN PRN Reason: Keep Vein Open Discontinued Medications Calcium Carbonate/Glycine (Tums) 500 mg PO BIDM [facility] Last Admin: 11/02/18 08:36 Dose: Not Given Fentanyl (Sublimaze) 25 mcg IVPUSH Q4H PRN PRN Reason: Pain Last Admin: 11/03/18 09:12 Dose: 25 mcg Hydrocortisone Sodium Succinate (Solu-Cortef) 80 mg IVPUSH ONETIME ONE Stop: 10/31/18 16:01 Last Admin: 10/31/18 16:51 Dose: 80 mg Iopamidol (Isovue-300 (61%)) 100 ml IVPUSH ONETIME ONE Stop: 10/31/18 16:05 Last Admin: 10/31/18 17:08 Dose: 75 ml Lorazepam (Ativan) 1 mg IVPUSH ONETIME ONE Stop: 11/02/18 13:41 Last Admin: 11/02/18 14:19 Dose: 1 mg Morphine Sulfate (Morphine) 2 mg IVPUSH Q2H PRN PRN Reason: Pain (severe 7-10) Last Admin: 11/02/18 09:28 Dose: 2 mg - Exam General: Reports: Alert, Oriented, Cooperative, No Acute Distress HEENT: Reports: Pupils Equal, Pupils Reactive, Mucous Membr. Moist/[place] Neck: Reports: Supple Lungs: Reports: Clear to Auscultation, Normal Respiratory Effort Cardiovascular: Reports: Regular Rate, Regular Rhythm GI/Abdominal Exam: Normal Bowel Sounds, Soft, Non-Tender, No Distention Extremities: Normal Inspection, Non-Tender, No Pedal Edema Skin: Reports: Warm, Dry, Intact Neurological: Reports: No New Focal Deficit Psy/Mental Status: Reports: Alert, Normal Affect, Normal Mood
--- NOTE | 2018-11-07 14:30 | EKG ---
11/02/2018- OUSMANE GARCIA - EKG shows sinus rhythm with heart rate of 82. Normal axis. No ST elevation or depression. No T-wave inversions. Significant artefact. QTC of 451. [facility] /[id number]
== END 2018-11-04 12:56 | disposition home or self-care (01) ==
LOC: UNDOADMOB 15:12 → DL.MS 15:12
PROVIDERS: ADMIT Internal Medicine; ATTEND Internal Medicine
DX: R10.84 Generalized abdominal pain (principal); E11.9 Type 2 diabetes mellitus without complications; K27.9 Peptic ulcer, site unspecified, unspecified as acute or chronic, without hemorrhage or perforation; R19.7 Diarrhea, unspecified; R07.9 Chest pain, unspecified; M06.9 Rheumatoid arthritis, unspecified; R06.02 Shortness of breath; I10 Essential (primary) hypertension; E66.9 Obesity, unspecified; R63.4 Abnormal weight loss; K57.30 Diverticulosis of large intestine without perforation or abscess without bleeding; Z68.38 Body mass index [BMI] 38.0-38.9, adult; Z88.8 Allergy status to other drugs, medicaments and biological substances; Z79.899 Other long term (current) drug therapy; Z79.4 Long term (current) use of insulin
CPT/HCPCS: 36415; 71045; 74177; 80048; 80053; 81001; 82150; 82962; 83690; 84484; 85025; 85379; 87045; 87046; 87338; 87493; 87899; 93005; 94010; A9270; C9113; J1650; J1720; J1815; J2060; J2270; J2405; J3010; J7030; Q9967; 96361; 96372; 96374; 96375; 96376; G0378

== ENCOUNTER 2019-01-01 05:46 | Day surgery (SDC) | payer MEDICARE, MEDICAID ==
[2019-01-01] MEDS ORDERED: Sodium Chloride 0.9% 10 ML Syringe FLUSH PRN (06:00)
[2019-01-01] MEDS: Dextrose 5%-0.45% NaCl 1,000 ML IV SCH (06:14)
[2019-01-01] MEDS ORDERED: Midazolam 1 MG/ML 2 ML SDV ONE (06:14)
[2019-01-01] MEDS ORDERED: fentaNYL 100 MCG/2 ML SDV ONE (06:15)
[2019-01-01] MEDS: fentaNYL 100 MCG/2 ML SDV IV ONE ×5 (06:33→06:50)
[2019-01-01] MEDS: Midazolam 1 MG/ML 2 ML SDV IV ONE ×6 (06:35→06:44)
--- NOTE | 2019-01-01 07:38 | OR ---
DATE: 01/01/2019 PROCEDURE: Total colonoscopy, cold snare polypectomy, and multiple pinch biopsies. INSTRUMENT USED: PCF-H190DL Olympus video colonoscope. PREMEDICATIONS: Fentanyl 175 mcg intravenous, Versed 4 mg intravenous. Nasal O2 cannula. The procedure was done under pulse oximetry, BP recording, and telemetry monitor. INDICATION: The patient with lower abdominal pain as well as chronic intermittent diarrhea, unexplained and not responsive to medical measures. Colonoscopic examination is done for detection of any polypoid lesions and removal, biopsies to be obtained for any evidence of microscopic colitis, endoscopic hemostasis therapy if needed. DESCRIPTION OF PROCEDURE: Initial rectal exam was unremarkable. Rigid anoscopy showed benign-appearing 5 mm sized polyp, cold snare polypectomy was done, the tissue was retrieved and sent for histopathology. The colonoscope was passed with ease. Numerous scattered diverticula were noted in the distal left colon along with deformity. There was moderate amount of fecal material, some solid in consistency, that had to be aspirated. The scope was passed with ease up to the ileocecal area. Photographs were taken of the normal-appearing cecum, identified by landmarks of appendiceal orifice and thin-lipped ileocecal folds. No bleeding was noted from any of the visualized areas at the commencement of the examination. The bowel preparation was of Jessie scale 2 in all the regions. No stricture. No vascular ectasia. No large isolated ulcerations seen. No evidence of diffuse inflammatory bowel disease in the form of friability, contact bleeding, or ulcerations. Probing the proximal sides of folds and flexures using adequate distention and clearing up the stool material, withdrawal of the scope was made. Multiple pinch biopsies were taken from the normal-appearing mucosa of the mid transverse colon, mid descending colon, and rectosigmoid, and sent for any histopathologic evidence of microscopic colitis. No bleeding was noted from any of the visualized areas at the completion of the examination. IMPRESSION: 1. Rectal polyp. 2. Diverticulosis. The patient tolerated the procedure well. [facility] /[id number]
[2019-01-01 09:17] VITALS: BP 145/79; PULSE 88
== END 2019-01-01 09:20 | disposition home or self-care (01) ==
LOC: DL.ENDO 05:46
PROVIDERS: ATTEND Internal Medicine Gastroenterology
DX: K57.30 Diverticulosis of large intestine without perforation or abscess without bleeding (principal); K52.9 Noninfective gastroenteritis and colitis, unspecified; D12.8 Benign neoplasm of rectum; I12.9 Hypertensive chronic kidney disease with stage 1 through stage 4 chronic kidney disease, or unspecified chronic kidney disease; E11.22 Type 2 diabetes mellitus with diabetic chronic kidney disease; N18.9 Chronic kidney disease, unspecified; E78.5 Hyperlipidemia, unspecified; M06.9 Rheumatoid arthritis, unspecified; K21.9 Gastro-esophageal reflux disease without esophagitis; E66.09 Other obesity due to excess calories; G89.4 Chronic pain syndrome; Z79.82 Long term (current) use of aspirin; Z79.4 Long term (current) use of insulin; Z68.38 Body mass index [BMI] 38.0-38.9, adult
CPT/HCPCS: 45385; J2250; J3010; J7042

== ENCOUNTER 2019-04-18 08:11 | Inpatient (IN) | payer MEDICARE, MEDICAID ==
[2019-04-18] MEDS ORDERED: Ondansetron 4 MG/2 ML SDV IV ONE (08:57)
[2019-04-18] MEDS ORDERED: Acetaminophen 325 MG Tab PO ONE (08:57)
[2019-04-18] MEDS ORDERED: Sodium Chloride 0.9% 1,000 ML IV ONE (08:57)
--- NOTE | 2019-04-18 09:00 | EDM.PDOC ---
<Kyle Wagner - Last Filed: 04/18/19 10:00> ED HPI GENERAL MEDICAL PROBLEM - General Chief Complaint: Possible Sepsis Stated Complaint: FEVER/KIDNEY PROBLEMS/CHEST COLD Time Seen by Provider: 04/18/19 08:40 - History of Present Illness INITIAL COMMENTS - FREE TEXT/NARRATIVE: Pt has felt ill x4 days with vomiting and dry heaves. Pt states feeling dizzy and tired for 4 days. Pt states fever x 3 days, Tmax at home 104. Pt states takes oxycodone 7.5mg q4h for pain, vomited this morning. Pt states pain is generalized. She tried to wait to see clinic physician and was brought here by [facility] staff. Pt also states diarrhea for this time. Patient is stating her back hurts in the area of her kidneys, stomach pain that has her in tears. Onset: Gradual Duration: Day(s): (4 days), Constant Location: Reports: Generalized Quality: Reports: Ache Severity: Moderate Improves with: Reports: None Worsens with: Reports: None Associated Symptoms: Reports: Cough, Diaphoresis, Fever/Chills, Headaches, Loss of Appetite, Nausea/Vomiting, Shortness of Breath, Weakness - Related Data Allergies Allergy/AdvReac Type Severity Reaction Status Date / Time muslce relaxers AdvReac arms numb Uncoded 04/18/19 08:29 and anxiety Home Meds: Home Meds Pantoprazole [Pantoprazole Sodium] 40 mg PO DAILY 09/13/14 [History] rOPINIRole [Requip] 0.25 mg PO BEDTIME 08/13/15 [History] cycloSPORINE [Restasis] 1 drop EYEBOTH BID 04/14/16 [History] Bumetanide [Bumex] 1 mg PO BID 04/24/18 [History] Potassium Chloride [Klor-Con 10] 10 meq PO BID 04/24/18 [History] metFORMIN HCl [Metformin HCl] 1,000 mg PO BIDMEALS 04/24/18 [History] Cyclophosphamide 250 mg PO DAILY 10/31/18 [History] DULoxetine [Cymbalta] 60 mg PO DAILY 10/31/18 [History] Insulin Aspart [NovoLOG] 30 unit SQ TIDMEALS 10/31/18 [History] Insulin Glargine,Hum.Rec.Anlog [Basaglar Kwikpen U-100] 30 unit SQ BID 10/31/18 [History] Metoclopramide HCl 10 mg PO TID PRN 10/31/18 [History] Mirabegron [Myrbetriq] 25 mg PO DAILY 10/31/18 [History] Pregabalin [Lyrica] 150 mg PO BID 10/31/18 [History] oxyCODONE HCl/Acetaminophen [Percocet 7.5-325 mg Tablet] 1 tab PO TID PRN [History] predniSONE [Prednisone] 10 mg PO DAILY 10/31/18 [History] Alum Hydrox/Mag Hydrox/Simeth [Mag-Al Plus] 30 ml PO BID #30 cup 11/04/18 [Rx] ED ROS GENERAL - Review of Systems Review Of Systems: See Below Constitutional: Reports: Fever, Chills, Weakness, Decreased Appetite. Denies: Weight Loss HEENT: Reports: Throat Pain. Denies: Ear Discharge, Ear Pain, Hearing Loss, Nosebleed, Nose Pain, Rhinitis, Sinus Problem, Throat Swelling Respiratory: Reports: Shortness of Breath, Cough. Denies: Wheezing, Sputum Cardiovascular: Denies: Chest Pain, Edema, Lightheadedness, Palpitations, Syncope Endocrine: Reports: No Symptoms GI/Abdominal: Reports: Abdominal Pain, Diarrhea, Decreased Appetite, Nausea, Vomiting. Denies: Constipation, Difficulty Swallowing, Distension : Reports: Flank Pain. Denies: Dysuria, Frequency, Urgency Musculoskeletal: Reports: Other (generalized pain ) Skin: Reports: Diaphoresis. Denies: Rash, Erythema, Change in Color, Urticaria Neurological: Reports: Dizziness, Headache, Weakness. Denies: Confusion, Seizure, Syncope, Trouble Speaking, Change in Speech Psychiatric: Reports: No Symptoms Hematologic/Lymphatic: Reports: No Symptoms Immunologic: Reports: No Symptoms ED EXAM, GENERAL - Physical Exam Exam: See Below Exam Limited By: No Limitations General Appearance: Moderate Distress Eye Exam: Bilateral Eye: PERRL Ears: Normal External Exam, Normal Canal, Hearing Grossly Normal, Normal TMs Ear Exam: Bilateral Ear: Auricle Normal, Canal Normal, TM normal Nose: Normal Inspection, Normal Mucosa, No Blood Throat/Mouth: Normal Inspection, Normal Lips, Normal Teeth, Normal Gums, Normal Oropharynx, Normal Voice, No Airway Compromise Head: Atraumatic, Normocephalic Neck: Normal Inspection, Supple, Non-Tender, Full Range of Motion Respiratory/Chest: No Accessory Muscle Use, Wheezing (bilateral wheezing). No: Respiratory Distress, Decreased Breath Sounds, Crackles, Rhonchi Cardiovascular: Normal Peripheral Pulses, Regular Rate, Rhythm, No Edema, No Gallop, No JVD, No Murmur, No Rub GI/Abdominal: Normal Bowel Sounds, Soft, Tender. No: No Organomegaly, No Distention, Distended, Guarding, Rebound (Female) Exam: Deferred Rectal (Female) Exam: Deferred Back Exam: CVA Tenderness (L), CVA Tenderness (R) Extremities: No Pedal Edema, Normal Capillary Refill. No: Joint Swelling, Pallor, Redness Neurological: Normal Cognition, Slow to Respond. No: Confused, Memory Loss Recent Events, Sensory/Motor Deficit Psychiatric: Tearful Skin Exam: Warm, Dry, Intact, Normal Color, No Rash Lymphatic: No Adenopathy Course - Vital Signs Last Recorded V/S: Last Vital Signs Temp 101.3 F H 04/18/19 08:21 Pulse 126 H 04/18/19 08:21 Resp 24 H 04/18/19 08:21 BP 167/68 H 04/18/19 08:21 Pulse Ox 94 L 04/18/19 08:21 - Orders/Labs/Meds Orders: Active Orders 24 hr Category Date Time Status Peripheral IV Care [RC] . DIRECTED Care 04/18/19 08:56 Active CULTURE BLOOD [] Stat Lab 04/18/19 09:06 Received CULTURE BLOOD [] Stat Lab 04/18/19 09:26 Received CULTURE STREP A CONFIRMATION [] Stat Lab 04/18/19 08:52 Results STREP SCRN A RAPID W CULT CONF [] Stat Lab 04/18/19 08:52 Results Sodium Chloride 0.9% [Saline Flush] Med 04/18/19 08:56 Active 10 ml FLUSH ASDIRECTED PRN Blood Culture x2 Reflex Set [OM.PC] Stat Oth 04/18/19 08:56 Ordered Peripheral IV Insertion Adult [OM.PC] Stat Oth 04/18/19 08:55 Ordered Medication Orders Sodium Chloride (Saline Flush) 10 ml FLUSH ASDIRECTED PRN PRN Reason: Keep Vein Open Last Admin: 04/18/19 09:17 Dose: 10 ml Labs: Laboratory Tests 0204/18/19 04/18/19 Range/Units 09:06 09:06 09:06 WBC 7.5 (5.0-10.0) 10^3/uL RBC 3.03 L (4.2-5.4) 10^6/uL Hgb 10.5 L (12.0-16.0) g/dL Hct 33.4 L (37.0-47.0) % MCV 110.2 H D (80-100) fL MCH 34.7 H (27.0-34.0) pg MCHC 31.4 L (33.0-35.0) g/dL Plt Count 151 (150-450) 10^3/uL Neut % (Auto) 79.2 H (42.2-75.2) % Lymph % (Auto) 10.9 L (20.5-50.1) % [place] % (Auto) 8.5 H (2-8) % Eos % (Auto) 1.3 (1.0-3.0) % Baso % (Auto) 0.1 (0.0-1.0) % Sodium 137 (135-145) mmol/L Potassium 3.6 (3.6-5.0) mmol/L Chloride 105 (101-111) mmol/L Carbon Dioxide 21.0 (21.0-31.0) mmol/L Anion Gap 14.6 BUN 21 H (7-18) mg/dL Creatinine 1.3 (0.6-1.3) mg/dL Est Cr Clr Drug Dosing 54.70 mL/min Estimated GFR (MDRD) 44 BUN/Creatinine Ratio 16.15 Glucose 80 (74-105) mg/dL Lactic Acid 1.3 (0.5-2.0) mmol/L Calcium 8.8 (8.4-10.2) mg/dl Total Bilirubin 0.4 (0.2-1.0) mg/dL AST 26 (10-42) IU/L ALT 22 (10-60) IU/L Alkaline Phosphatase 71 (42-121) IU/L Total Protein 6.7 (6.7-8.2) g/dl Albumin 3.4 (3.2-5.5) g/dl Globulin 3.3 Albumin/Globulin Ratio 1.03 Amylase 56 (28-100) U/L Lipase 46 (22-51) U/L Urine Color (YELLOW) Urine Appearance (CLEAR) Urine pH (5.0-9.0) Ur Specific Melvin (1.005-1.030) Urine Protein (NEGATIVE) Urine Glucose (UA) (NEGATIVE) Urine Ketones (NEGATIVE) Urine Occult Blood (NEGATIVE) Urine Nitrite (NEGATIVE) Urine Bilirubin (NEGATIVE) Urine Urobilinogen (0.2-1.0) mg/dL Ur Leukocyte Esterase (NEGATIVE) Urine RBC /HPF Urine WBC (0-5/HPF) /HPF Ur Epithelial Cells (NOT SEEN) /HPF Amorphous Sediment (NOT SEEN) /HPF Urine Bacteria (0-FEW/HPF) /HPF Urine Mucus (NOT SEEN) /LPF Urine HCG, Qual Urine Opiates Screen (NEGATIVE) Ur Oxycodone Screen (NEGATIVE) Urine Methadone Screen (NEGATIVE) Ur Barbiturates Screen (NEGATIVE) U Tricyclic Antidepress (NEGATIVE) Ur Phencyclidine Scrn (NEGATIVE) Ur Amphetamine Screen (NEGATIVE) U Methamphetamines Scrn (NEGATIVE) Urine MDMA Screen (NEGATIVE) U Benzodiazepines Scrn (NEGATIVE) Urine Cocaine Screen (NEGATIVE) U Marijuana (THC) Screen (NEGATIVE) Ketones Negative 04/18/19 04/18/19 04/18/19 Range/Units 09:07 09:07 09:07 WBC (5.0-10.0) 10^3/uL RBC (4.2-5.4) 10^6/uL Hgb (12.0-16.0) g/dL Hct (37.0-47.0) % MCV (80-100) fL MCH (27.0-34.0) pg MCHC (33.0-35.0) g/dL Plt Count (150-450) 10^3/uL Neut % (Auto) (42.2-75.2) % Lymph % (Auto) (20.5-50.1) % [place] % (Auto) (2-8) % Eos % (Auto) (1.0-3.0) % Baso % (Auto) (0.0-1.0) % Sodium (135-145) mmol/L Potassium (3.6-5.0) mmol/L Chloride (101-111) mmol/L Carbon Dioxide (21.0-31.0) mmol/L Anion Gap BUN (7-18) mg/dL Creatinine (0.6-1.3) mg/dL Est Cr Clr Drug Dosing mL/min Estimated GFR (MDRD) BUN/Creatinine Ratio Glucose (74-105) mg/dL Lactic Acid (0.5-2.0) mmol/L Calcium (8.4-10.2) mg/dl Total Bilirubin (0.2-1.0) mg/dL AST (10-42) IU/L ALT (10-60) IU/L Alkaline Phosphatase (42-121) IU/L Total Protein (6.7-8.2) g/dl Albumin (3.2-5.5) g/dl Globulin Albumin/Globulin Ratio Amylase (28-100) U/L Lipase (22-51) U/L Urine Color Yellow (YELLOW) Urine Appearance Slightly cloudy (CLEAR) Urine pH 7.0 (5.0-9.0) Ur Specific Melvin 1.025 (1.005-1.030) Urine Protein >=300 H (NEGATIVE) Urine Glucose (UA) Negative (NEGATIVE) Urine Ketones Negative (NEGATIVE) Urine Occult Blood Small H (NEGATIVE) Urine Nitrite Negative (NEGATIVE) Urine Bilirubin Negative (NEGATIVE) Urine Urobilinogen 0.2 (0.2-1.0) mg/dL Ur Leukocyte Esterase Negative (NEGATIVE) Urine RBC 5-10 H /HPF Urine WBC Not seen (0-5/HPF) /HPF Ur Epithelial Cells Few (NOT SEEN) /HPF Amorphous Sediment Few (NOT SEEN) /HPF Urine Bacteria Few (0-FEW/HPF) /HPF Urine Mucus Few H (NOT SEEN) /LPF Urine HCG, Qual Negative Urine Opiates Screen Positive H (NEGATIVE) Ur Oxycodone Screen Positive H (NEGATIVE) Urine Methadone Screen Negative (NEGATIVE) Ur Barbiturates Screen Negative (NEGATIVE) U Tricyclic Antidepress Negative (NEGATIVE) Ur Phencyclidine Scrn Negative (NEGATIVE) Ur Amphetamine Screen Negative (NEGATIVE) U Methamphetamines Scrn Negative (NEGATIVE) Urine MDMA Screen Negative (NEGATIVE) U Benzodiazepines Scrn Negative (NEGATIVE) Urine Cocaine Screen Negative (NEGATIVE) U Marijuana (THC) Screen Negative (NEGATIVE) Ketones Strep screen: Negative Influenza A&B: Negative Meds: Medications Generic Name Dose Route Start Last Admin Trade Name Freq PRN Reason Stop Dose Admin Sodium Chloride 10 ml 04/18/19 08:56 04/18/19 09:17 Saline Flush FLUSH 10 ml ASDIRECTED PRN Administration Keep Vein Open Discontinued Medications Generic Name Dose Route Start Last Admin Trade Name Freq PRN Reason Stop Dose Admin Acetaminophen 650 mg 04/18/19 08:57 04/18/19 09:19 Tylenol PO 04/18/19 08:58 650 mg NOW ONE Administration Diphenhydramine HCl 25 mg 04/18/19 09:08 04/18/19 09:30 Benadryl IVPUSH 04/18/19 09:09 25 mg ONETIME ONE Administration Sodium Chloride 1,000 mls @ 999 mls/hr 04/18/19 08:57 04/18/19 10:19 Normal Saline IV 04/18/19 09:57 Infused .BOLUS ONE Infusion Vancomycin HCl 1.5 gm/ Premix 300 mls @ 200 mls/hr 04/18/19 10:00 04/18/19 10 :19 IV 04/18/19 11:29 200 mls/hr ONETIME ONE Administration Ondansetron HCl 4 mg 04/18/19 08:57 04/18/19 09:20 Zofran IV 04/18/19 08:58 4 mg ONETIME ONE Administration Departure - Departure Disposition: Admitted As Inpatient 65 Clinical Impression: Pneumonia Qualifiers: Pneumonia type: due to unspecified organism Laterality: left Lung location: lower lobe of lung Qualified Code(s): J18.9 - Pneumonia, unspecified organism Sepsis Qualifiers: Sepsis type: sepsis due to unspecified organism Sepsis acute organ dysfunction status: without acute organ dysfunction Qualified Code(s): A41.9 - Sepsis, unspecified organism - Discharge Information Sepsis Event Note - Focused Exam Vital Signs: Vital Signs Temp Pulse Resp BP Pulse Ox 04/18/19 08:21 101.3 F H 126 H 24 H 167/68 H 94 L Date Exam was Performed: 04/18/19 Time Exam was Performed: 10:00 - My Orders Last 24 Hours: My Active Orders 04/18/19 08:52 CULTURE STREP A CONFIRMATION [] Stat STREP SCRN A RAPID W CULT CONF [RM] Stat 04/18/19 08:55 Peripheral IV Insertion Adult [OM.PC] Stat 04/18/19 08:56 Peripheral IV Care [RC] . DIRECTED Sodium Chloride 0.9% [Saline Flush] 10 ml FLUSH ASDIRECTED PRN Blood Culture x2 Reflex Set [OM.PC] Stat 04/18/19 09:06 CULTURE BLOOD [BC] Stat 04/18/19 09:26 CULTURE BLOOD [BC] Stat - Assessment/Plan Last 24 Hours: My Active Orders 04/18/19 08:52 CULTURE STREP A CONFIRMATION [RM] Stat STREP SCRN A RAPID W CULT CONF [RM] Stat 04/18/19 08:55 Peripheral IV Insertion Adult [OM.PC] Stat 04/18/19 08:56 Peripheral IV Care [RC] . DIRECTED Sodium Chloride 0.9% [Saline Flush] 10 ml FLUSH ASDIRECTED PRN Blood Culture x2 Reflex Set [OM.PC] Stat 04/18/19 09:06 CULTURE BLOOD [BC] Stat 04/18/19 09:26 CULTURE BLOOD [BC] Stat <Kirill Dillon - Last Filed: 04/18/19 11:45> ED HPI GENERAL MEDICAL PROBLEM - General Source of Information: Reports: Patient, Old Records, RN, RN Notes Reviewed History Limitations: Reports: No Limitations - History of Present Illness Treatments INSPECTOR WATCH ASSEMBLY: Reports: Other Medication(s) Other Treatments INSPECTOR WATCH ASSEMBLY: oxycodone general Pain Score (Numeric/FACES): 7 Past Medical History - Past Health History Medical/Surgical History: Denies Medical/Surgical History HEENT History: Reports: Cataract, Hard of Hearing, Impaired Vision, Other (See Below) Other HEENT History: wears glasses Cardiovascular History: Reports: Hypertension, SOB on Exertion Respiratory History: Reports: Bronchitis, Recurrent, Sleep Apnea, SOB Gastrointestinal History: Reports: Gastritis, Other (See Below) Other Gastrointestinal History: chronic stomach pains. 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 OSTEOMELITIS OF RIGHT FOOT, healed 05/10/17 Neurological History: Reports: Other (See Below) Other Neuro History: SOMNOLENCE, DAYTIME, nerve damage to back and legs Psychiatric History: Reports: Anxiety, Depression, Eating Disorders Endocrine/Metabolic History: Reports: Diabetes, Type II, IDDM, Obesity/BMI 30+, Vitamin D Deficiency Hematologic History: Reports: Iron Deficiency, Other (See Below) Other Hematologic History: HX OF SEPSIS. HX OF MRSA INFECTION Immunologic History: Reports: Immunosuppression, Other (See Below) Other Immunologic History: RA and Lupus Oncologic (Cancer) History: Reports: None Dermatologic History: Reports: Cellulitis, Other (See Below) Other Dermatologic History: hx of mrsa. HX OF SKIN ULCERS OF FOOT, BILAT. DIABETIC SKIN ULCERS. CELLULITIS OF L ANTERIOR LOWER LEG. BIOPSY OF SKIN LESION - Infectious Disease History Infectious Disease History: Reports: Influenza, MRSA, Shingles Other Infectious Disease History: CELLULITIS - Past Surgical History Head Surgeries/Procedures: Reports: None HEENT Surgical History: Reports: Cataract Surgery Other HEENT Surgeries/Procedures: BILAT CATARACT EXTRACTION WITH LENS PLACEMENT Cardiovascular Surgical History: Reports: None Respiratory Surgical History: Reports: None GI Surgical History: Reports: None Other GI Surgeries/Procedures: pt states "to remove infection in my stomach". I & D OF ABDOMINAL ABSCESS Female Surgical History: Reports: Other (See Below) Other Female Surgeries/Procedures: cyst on her left kidney Endocrine Surgical History: Reports: None Neurological Surgical History: Reports: None Musculoskeletal Surgical History: Reports: Amputation, Other (See Below) Other Musculoskeletal Surgeries/Procedures:: right toe ampulation Oncologic Surgical History: Reports: None Dermatological Surgical History: Reports: Other (See Below) Social & Family History - Family History Family Medical History: Noncontributory HEENT: Reports: None Cardiac: Reports: None Respiratory: Reports: None GI: Reports: None : Reports: None OBGYN: Reports: None Musculoskeletal: Reports: RA Neurological: Reports: None Psychiatric: Reports: Depression Endocrine/Metabolic: Reports: Diabetes, type II Hematologic: Reports: None Immunologic: Reports: None Dermatologic: Reports: None Oncologic: Reports: None - Tobacco Use Smoking Status *Q: Never Smoker Second Hand Smoke Exposure: No - Caffeine Use Caffeine Use: Reports: Coffee Other Caffeine Use: 16oz daily Caffeine Use Comment: 3/day - Recreational Drug Use Recreational Drug Use: No - Living Situation & Occupation Living situation: Reports: with Family Course - Orders/Labs/Meds Labs: Laboratory Tests 04/18/19 04/18/19 04/18/19 Range/Units 09:06 09:06 09:06 WBC 7.5 (5.0-10.0) 10^3/uL RBC 3.03 L (4.2-5.4) 10^6/uL Hgb 10.5 L (12.0-16.0) g/dL Hct 33.4 L (37.0-47.0) % MCV 110.2 H D (80-100) fL MCH 34.7 H (27.0-34.0) pg MCHC 31.4 L (33.0-35.0) g/dL Plt Count 151 (150-450) 10^3/uL Neut % (Auto) 79.2 H (42.2-75.2) % Lymph % (Auto) 10.9 L (20.5-50.1) % [place] % (Auto) 8.5 H (2-8) % Eos % (Auto) 1.3 (1.0-3.0) % Baso % (Auto) 0.1 (0.0-1.0) % Sodium 137 (135-145) mmol/L Potassium 3.6 (3.6-5.0) mmol/L Chloride 105 (101-111) mmol/L Carbon Dioxide 21.0 (21.0-31.0) mmol/L Anion Gap 14.6 BUN 21 H (7-18) mg/dL Creatinine 1.3 (0.6-1.3) mg/dL Est Cr Clr Drug Dosing 54.70 mL/min Estimated GFR (MDRD) 44 BUN/Creatinine Ratio 16.15 Glucose 80 (74-105) mg/dL Lactic Acid 1.3 (0.5-2.0) mmol/L Calcium 8.8 (8.4-10.2) mg/dl Total Bilirubin 0.4 (0.2-1.0) mg/dL AST 26 (10-42) IU/L ALT 22 (10-60) IU/L Alkaline Phosphatase 71 (42-121) IU/L Total Protein 6.7 (6.7-8.2) g/dl Albumin 3.4 (3.2-5.5) g/dl Globulin 3.3 Albumin/Globulin Ratio 1.03 Amylase 56 (28-100) U/L Lipase 46 (22-51) U/L Urine Color (YELLOW) Urine Appearance (CLEAR) Urine pH (5.0-9.0) Ur Specific [place] (1.005-1.030) Urine Protein (NEGATIVE) Urine Glucose (UA) (NEGATIVE) Urine Ketones (NEGATIVE) Urine Occult Blood (NEGATIVE) Urine Nitrite (NEGATIVE) Urine Bilirubin (NEGATIVE) Urine Urobilinogen (0.2-1.0) mg/dL Ur Leukocyte Esterase (NEGATIVE) Urine RBC /HPF Urine WBC (0-5/HPF) /HPF Ur Epithelial Cells (NOT SEEN) /HPF Amorphous Sediment (NOT SEEN) /HPF Urine Bacteria (0-FEW/HPF) /HPF Urine Mucus (NOT SEEN) /LPF Urine HCG, Qual Urine Opiates Screen (NEGATIVE) Ur Oxycodone Screen (NEGATIVE) Urine Methadone Screen (NEGATIVE) Ur Barbiturates Screen (NEGATIVE) U Tricyclic Antidepress (NEGATIVE) Ur Phencyclidine Scrn (NEGATIVE) Ur Amphetamine Screen (NEGATIVE) U Methamphetamines Scrn (NEGATIVE) Urine MDMA Screen (NEGATIVE) U Benzodiazepines Scrn (NEGATIVE) Urine Cocaine Screen (NEGATIVE) U Marijuana (THC) Screen (NEGATIVE) Ketones Negative 04/18/19 04/18/19 04/18/19 Range/Units 09:07 09:07 09:07 WBC (5.0-10.0) 10^3/uL RBC (4.2-5.4) 10^6/uL Hgb (12.0-16.0) g/dL Hct (37.0-47.0) % MCV (80-100) fL MCH (27.0-34.0) pg MCHC (33.0-35.0) g/dL Plt Count (150-450) 10^3/uL Neut % (Auto) (42.2-75.2) % Lymph % (Auto) (20.5-50.1) % [place] % (Auto) (2-8) % Eos % (Auto) (1.0-3.0) % Baso % (Auto) (0.0-1.0) % Sodium (135-145) mmol/L Potassium (3.6-5.0) mmol/L Chloride (101-111) mmol/L Carbon Dioxide (21.0-31.0) mmol/L Anion Gap BUN (7-18) mg/dL Creatinine (0.6-1.3) mg/dL Est Cr Clr Drug Dosing mL/min Estimated GFR (MDRD) BUN/Creatinine Ratio Glucose (74-105) mg/dL Lactic Acid (0.5-2.0) mmol/L Calcium (8.4-10.2) mg/dl Total Bilirubin (0.2-1.0) mg/dL AST (10-42) IU/L ALT (10-60) IU/L Alkaline Phosphatase (42-121) IU/L Total Protein (6.7-8.2) g/dl Albumin (3.2-5.5) g/dl Globulin Albumin/Globulin Ratio Amylase (28-100) U/L Lipase (22-51) U/L Urine Color Yellow (YELLOW) Urine Appearance Slightly cloudy (CLEAR) Urine pH 7.0 (5.0-9.0) Ur Specific [place]vin 1.025 (1.005-1.030) Urine Protein >=300 H (NEGATIVE) Urine Glucose (UA) Negative (NEGATIVE) Urine Ketones Negative (NEGATIVE) Urine Occult Blood Small H (NEGATIVE) Urine Nitrite Negative (NEGATIVE) Urine Bilirubin Negative (NEGATIVE) Urine Urobilinogen 0.2 (0.2-1.0) mg/dL Ur Leukocyte Esterase Negative (NEGATIVE) Urine RBC 5-10 H /HPF Urine WBC Not seen (0-5/HPF) /HPF Ur Epithelial Cells Few (NOT SEEN) /HPF Amorphous Sediment Few (NOT SEEN) /HPF Urine Bacteria Few (0-FEW/HPF) /HPF Urine Mucus Few H (NOT SEEN) /LPF Urine HCG, Qual Negative Urine Opiates Screen Positive H (NEGATIVE) Ur Oxycodone Screen Positive H (NEGATIVE) Urine Methadone Screen Negative (NEGATIVE) Ur Barbiturates Screen Negative (NEGATIVE) U Tricyclic Antidepress Negative (NEGATIVE) Ur Phencyclidine Scrn Negative (NEGATIVE) Ur Amphetamine Screen Negative (NEGATIVE) U Methamphetamines Scrn Negative (NEGATIVE) Urine MDMA Screen Negative (NEGATIVE) U Benzodiazepines Scrn Negative (NEGATIVE) Urine Cocaine Screen Negative (NEGATIVE) U Marijuana (THC) Screen Negative (NEGATIVE) Ketones - Radiology Interpretation Free Text/Narrative:: [facility] Final Radiology Report Call: [phone] assistance Online chat: [email or web address] Name: OUSMANE GARCIA Age: 43Years F Date: 04/18/2019 SSN: -- : [id number] Study: XR CHEST 1 VIEW FRONTAL Requesting Physician: KIRILL DILLON Images: 1 Addl Studies: Provided Clinical History: Contrast: Contrast Medium: Contrast Amount: Contrast Method: CONFIDENTIALITY STATEMENT This report is intended only for use by the referring physician, and only in accordance with law. If you received this in error, call [phone]. Page 1 of 1 PROCEDURE INFORMATION: Exam: XR Chest, 1 View Exam date and time: 04/18/2019 9:44 AM Age: 43 years old Clinical indication: Cough and fever and other: Sepsis TECHNIQUE: Imaging protocol: XR of the chest Views: 1 view. COMPARISON: CR Chest 1V Frontal 11/02/2018 2:50 PM (report not provided) FINDINGS: Lungs: There is mild bibasilar atelectasis without definite infiltrate. The lungs are otherwise clear. Pleural space: Unremarkable. No pleural effusion. No pneumothorax. Heart/Mediastinum: The cardiomediastinal silhouette is fairly stable in appearance. Bones/joints: Unremarkable. IMPRESSION: Mild bibasilar atelectasis without definite infiltrate. Thank you for allowing us to participate in the care of your patient. Dictated and Authenticated by: Jay Champagne MD 04/18/2019 10:32 AM Central Time ([place] & [place]) [facility] Final Radiology Report Call: [phone] assistance Online chat: [email or web address] Name: OUSMANE GARCIA Age: 43Years F Date: 04/18/2019 SSN: -- : [id number] Study: CT ABDOMEN/PELVIS WO Requesting Physician: KIRILL DILLON Images: [phone] Addl Studies: Provided Clinical History: Contrast: Without Contrast Medium: Contrast Amount: Contrast Method: Page 1 of 2 PROCEDURE INFORMATION: Exam: CT Abdomen And Pelvis Without Contrast Exam date and time: 04/18/2019 11:10 AM Age: 43 years old Clinical indication: Abdominal pain; Generalized; Patient HX: Fever, cough, abd pain TECHNIQUE: Imaging protocol: Computed tomography of the abdomen and pelvis without contrast. Radiation optimization: All CT scans at this facility use at least one of these dose optimization techniques: automated exposure control; mA and/or kV adjustment per patient size (includes targeted exams where dose is matched to clinical indication); or iterative reconstruction. COMPARISON: CT Abdomen Pelvis wo Cont 04/24/2018 3:56 AM FINDINGS: Limitations: Evaluation is somewhat limited by lack of IV contrast. Lungs: The lung bases demonstrate atelectasis and scarring, with some new patchy airspace opacity in the left lower lobe, suggesting pneumonia. There is again basilar emphysematous change. Liver: The liver is newly fatty in density. It appears otherwise grossly unremarkable. Gallbladder and bile ducts: No gallstones are evident, but ultrasound would be more sensitive. No gross biliary ductal dilatation. Pancreas: Grossly unremarkable. Spleen: Grossly unremarkable. Adrenals: Grossly unremarkable. Kidneys and ureters: Grossly unremarkable. No hydronephrosis or renal or ureteral calculus. Stomach and bowel: There is again a small descending duodenal diverticulum. The unopacified small bowel is not significantly distended to suggest obstruction. There is again mild sigmoid colonic diverticulosis without evidence for diverticulitis. The large bowel is otherwise grossly unremarkable in appearance. OUSMANE GARCIA | Final Radiology Report CONFIDENTIALITY STATEMENT This report is intended only for use by the referring physician, and only in accordance with law. If you received this in error, call [phone]. Page 2 of 2 Appendix: The appendix is not identified, but there are no inflammatory changes in its expected region. Intraperitoneal space: No free air or significant free fluid. Vasculature: The abdominal aorta is nonaneurysmal. Atherosclerotic vascular calcifications are again present. Lymph nodes: No gross pathologic lymphadenopathy. Bladder: Grossly unremarkable. Reproductive: No gross adnexal abnormality is apparent, but ultrasound would be more appropriate in this regard. Bones/joints: Degenerative changes again involve the spine and hips. Soft tissues: Unremarkable. IMPRESSION: 1. Basilar pulmonary emphysematous disease, as on 04/24/18, with new patchy airspace opacity in the left lower lobe suggesting pneumonia. 2. No hydronephrosis, renal or ureteral calculus or other gross acute abnormality identified. 3. New fatty change of the liver. 4. Persistent mild sigmoid colonic diverticulosis without evidence for diverticulitis. Thank you for allowing us to participate in the care of your patient. Dictated and Authenticated by: Jay Champagne MD 04/18/2019 11:25 AM Central Time ([place] & [place]) - Re-Assessments/Exams Free Text/Narrative Re-Assessment/Exam: 04/18/19 11:18 I personally performed or re-performed the physical examination and medical decision making. I have verified all student documentation or findings, including history, physical exam and/or medical decision making. Departure - Departure Time of Disposition: 11:43 (admitted to Dr. Antonio) Condition: Fair - Discharge Information *PRESCRIPTION DRUG MONITORING PROGRAM REVIEWED*: Not Applicable *COPY OF PRESCRIPTION DRUG MONITORING REPORT IN PATIENT MAURICIO: Not Applicable Sepsis Event Note - Evaluation Sepsis Screening Result: Possible Sepsis Risk - Focused Exam Date Exam was Performed: 04/18/19 Time Exam was Performed: 11:43
[2019-04-18] MEDS ORDERED: diphenhydrAMINE 50 MG/ML SDV IVPUSH ONE (09:08)
[2019-04-18] MEDS: Sodium Chloride 0.9% 10 ML Syringe FLUSH PRN (09:17)
[2019-04-18 09:33] LABS: ANION GAP 14.6; CHLORIDE,CL 105 mmol/L (101-111); SODIUM,NA 137 mmol/L (135-145)
[2019-04-18] MEDS ORDERED: VANCOMYCIN IV ONE (09:37)
[2019-04-18] MEDS ORDERED: SODIUM CHLORIDE 0.9% IV ONE (09:37)
[2019-04-18] MEDS ORDERED: Pneumococcal Polyvalent-23 Vaccine 0.5 ML SDV IM ONE (13:26)
[2019-04-18] MEDS: Heparin Sodium 5,000 Units/ML Vial SUBCUT SCH ×2 (14:50→22:05)
[2019-04-18] MEDS: Piperacillin/Tazobactam 3.375 GM in Sodium Chloride 0.9% 100 ML IV SCH ×3 (14:52→23:54)
[2019-04-18] MEDS: Bumetanide 1 MG Tab PO SCH (14:53)
--- NOTE | 2019-04-18 14:53 | PCM.HP ---
H&P History of Present Illness - General Date of Service: 04/18/19 Admit Problem/Dx: Admission Diagnosis/Problem Admission Diagnosis/Problem Pneumonia Source of Information: Patient History Limitations: Reports: No Limitations - History of Present Illness Initial Comments - Free Text/Narative: Ms. 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 Patient presented to the clinic today and was found to be tachycardic with a fever of 104.7. She was transferred here for further care. In the ED, patient was febrile, but otherwise hemodynamically stable. Chest x-ray with nonrevealing, however CT abdomen pelvis was obtained due to complaint of nausea, and it found left lower lobe infiltrate. She was started on IV of antibiotics and was transferred in for further care. On interview, patient reported an episode of vomiting this morning as well as diarrhea. She denied any other complaints. She reported sick contact. general Pain Score (Numeric/FACES): 6 - Related Data Allergies/Adverse Reactions: Allergies Allergy/AdvReac Type Severity Reaction Status Date / Time muslce relaxers AdvReac arms numb Uncoded 04/18/19 08:29 and anxiety Home Medications: Home Meds Pantoprazole [Pantoprazole Sodium] 40 mg PO DAILY 09/13/14 [History] rOPINIRole [Requip] 0.25 mg PO BEDTIME 08/13/15 [History] cycloSPORINE [Restasis] 1 drop EYEBOTH BID 04/14/16 [History] Bumetanide [Bumex] 1 mg PO BID 04/24/18 [History] Potassium Chloride [Klor-Con 10] 10 meq PO BID 04/24/18 [History] metFORMIN HCl [Metformin HCl] 1,000 mg PO BIDMEALS 04/24/18 [History] Cyclophosphamide 250 mg PO DAILY 10/31/18 [History] DULoxetine [Cymbalta] 60 mg PO DAILY 10/31/18 [History] Insulin Aspart [NovoLOG] 10 unit SQ TIDMEALS 10/31/18 [History] Insulin Glargine,Hum.Rec.Anlog [Basaglar Kwikpen U-100] 30 unit SQ BID 10/31/18 [History] Metoclopramide HCl 10 mg PO TID PRN 10/31/18 [History] Mirabegron [Myrbetriq] 25 mg PO DAILY 10/31/18 [History] Pregabalin [Lyrica] 150 mg PO BID 10/31/18 [History] oxyCODONE HCl/Acetaminophen [Percocet 7.5-325 mg Tablet] 1 tab PO TID PRN [History] predniSONE [Prednisone] 10 mg PO DAILY 10/31/18 [History] Alum Hydrox/Mag Hydrox/Simeth [Mag-Al Plus] 30 ml PO BID #30 cup 11/04/18 [Rx] Past Medical History - Past Health History Medical/Surgical History: Denies Medical/Surgical History HEENT History: Reports: Cataract, Hard of Hearing, Impaired Vision, Other (See Below) Other HEENT History: wears glasses Cardiovascular History: Reports: Hypertension, SOB on Exertion Respiratory History: Reports: Bronchitis, Recurrent, Sleep Apnea, SOB Gastrointestinal History: Reports: Gastritis, Other (See Below) Other Gastrointestinal History: chronic stomach pains. 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 OSTEOMELITIS OF RIGHT FOOT, healed 05/10/17 Neurological History: Reports: Other (See Below) Other Neuro History: SOMNOLENCE, DAYTIME, nerve damage to back and legs Psychiatric History: Reports: Anxiety, Depression, Eating Disorders Endocrine/Metabolic History: Reports: Diabetes, Type II, IDDM, Obesity/BMI 30+, Vitamin D Deficiency Hematologic History: Reports: Iron Deficiency, Other (See Below) Other Hematologic History: HX OF SEPSIS. HX OF MRSA INFECTION Immunologic History: Reports: Immunosuppression, Other (See Below) Other Immunologic History: RA and Lupus Oncologic (Cancer) History: Reports: None Dermatologic History: Reports: Cellulitis, Other (See Below) Other Dermatologic History: hx of mrsa. HX OF SKIN ULCERS OF FOOT, BILAT. DIABETIC SKIN ULCERS. CELLULITIS OF L ANTERIOR LOWER LEG. BIOPSY OF SKIN LESION - Infectious Disease History Infectious Disease History: Reports: Influenza, MRSA, Shingles Other Infectious Disease History: CELLULITIS - Past Surgical History Head Surgeries/Procedures: Reports: None HEENT Surgical History: Reports: Cataract Surgery Other HEENT Surgeries/Procedures: BILAT CATARACT EXTRACTION WITH LENS PLACEMENT Cardiovascular Surgical History: Reports: None Respiratory Surgical History: Reports: None GI Surgical History: Reports: None Other GI Surgeries/Procedures: pt states "to remove infection in my stomach". I & D OF ABDOMINAL ABSCESS Female Surgical History: Reports: Other (See Below) Other Female Surgeries/Procedures: cyst on her left kidney Endocrine Surgical History: Reports: None Neurological Surgical History: Reports: None Musculoskeletal Surgical History: Reports: Amputation, Other (See Below) Other Musculoskeletal Surgeries/Procedures:: right toe ampulation Oncologic Surgical History: Reports: None Dermatological Surgical History: Reports: Other (See Below) Social & Family History - Family History Family Medical History: Noncontributory HEENT: Reports: None Cardiac: Reports: None Respiratory: Reports: None GI: Reports: None : Reports: None OBGYN: Reports: None Musculoskeletal: Reports: RA Neurological: Reports: None Psychiatric: Reports: Depression Endocrine/Metabolic: Reports: Diabetes, type II Hematologic: Reports: None Immunologic: Reports: None Dermatologic: Reports: None Oncologic: Reports: None - Tobacco Use Smoking Status *Q: Former Smoker Used Tobacco, but Quit: Yes Month/Year Tobacco Last Used: 2014 Second Hand Smoke Exposure: No - Caffeine Use Caffeine Use: Reports: Coffee, Soda Other Caffeine Use: 16oz daily Caffeine Use Comment: 3/day - Recreational Drug Use Recreational Drug Use: No - Living Situation & Occupation Living situation: Reports: with Family H&P Review of Systems - Review of Systems: Review Of Systems: See Below General: Reports: Fever, Chills, Night Sweats Pulmonary: Reports: Shortness of Breath, Cough Cardiovascular: Reports: No Symptoms Gastrointestinal: Reports: Diarrhea, Vomiting Genitourinary: Reports: No Symptoms Exam - Exam Exam: See Below - Vital Signs Vital Signs: Last Vital Signs Temp 35.9 C 04/18/19 12:02 Pulse 101 H 04/18/19 12:02 Resp 18 04/18/19 12:02 BP 121/60 04/18/19 12:02 Pulse Ox 95 04/18/19 12:02 Weight: 114.305 kg - Exam General: Alert, Oriented Lungs: Normal Respiratory Effort, Wheezing Cardiovascular: Regular Rate, Regular Rhythm, Normal S1, Normal S2 GI/Abdominal Exam: Normal Bowel Sounds, Soft, Non-Tender, No Organomegaly Extremities: Normal Inspection, No Pedal Edema Skin: Warm, Dry, Intact Neuro Extensive - Mental Status: Alert, Oriented x3 Psychiatric: Alert, Normal Affect, Normal Mood - Patient Data Lab Results Last 24 hrs: Laboratory Results - last 24 hr 04/18/19 04/18/19 04/18/19 Range/Units 09:06 09:06 09:06 WBC 7.5 (5.0-10.0) 10^3/uL RBC 3.03 L (4.2-5.4) 10^6/uL Hgb 10.5 L (12.0-16.0) g/dL Hct 33.4 L (37.0-47.0) % MCV 110.2 H D (80-100) fL MCH 34.7 H (27.0-34.0) pg MCHC 31.4 L (33.0-35.0) g/dL Plt Count 151 (150-450) 10^3/uL Neut % (Auto) 79.2 H (42.2-75.2) % Lymph % (Auto) 10.9 L (20.5-50.1) % [place] % (Auto) 8.5 H (2-8) % Eos % (Auto) 1.3 (1.0-3.0) % Baso % (Auto) 0.1 (0.0-1.0) % Sodium 137 (135-145) mmol/L Potassium 3.6 (3.6-5.0) mmol/L Chloride 105 (101-111) mmol/L Carbon Dioxide 21.0 (21.0-31.0) mmol/L Anion Gap 14.6 BUN 21 H (7-18) mg/dL Creatinine 1.3 (0.6-1.3) mg/dL Est Cr Clr Drug Dosing 54.70 mL/min Estimated GFR (MDRD) 44 BUN/Creatinine Ratio 16.15 Glucose 80 (74-105) mg/dL Lactic Acid 1.3 (0.5-2.0) mmol/L Calcium 8.8 (8.4-10.2) mg/dl Total Bilirubin 0.4 (0.2-1.0) mg/dL AST 26 (10-42) IU/L ALT 22 (10-60) IU/L Alkaline Phosphatase 71 (42-121) IU/L Total Protein 6.7 (6.7-8.2) g/dl Albumin 3.4 (3.2-5.5) g/dl Globulin 3.3 Albumin/Globulin Ratio 1.03 Amylase 56 (28-100) U/L Lipase 46 (22-51) U/L Urine Color (YELLOW) Urine Appearance (CLEAR) Urine pH (5.0-9.0) Ur Specific [place] (1.005-1.030) Urine Protein (NEGATIVE) Urine Glucose (UA) (NEGATIVE) Urine Ketones (NEGATIVE) Urine Occult Blood (NEGATIVE) Urine Nitrite (NEGATIVE) Urine Bilirubin (NEGATIVE) Urine Urobilinogen (0.2-1.0) mg/dL Ur Leukocyte Esterase (NEGATIVE) Urine RBC /HPF Urine WBC (0-5/HPF) /HPF Ur Epithelial Cells (NOT SEEN) /HPF Amorphous Sediment (NOT SEEN) /HPF Urine Bacteria (0-FEW/HPF) /HPF Urine Mucus (NOT SEEN) /LPF Urine HCG, Qual Urine Opiates Screen (NEGATIVE) Ur Oxycodone Screen (NEGATIVE) Urine Methadone Screen (NEGATIVE) Ur Barbiturates Screen (NEGATIVE) U Tricyclic Antidepress (NEGATIVE) Ur Phencyclidine Scrn (NEGATIVE) Ur Amphetamine Screen (NEGATIVE) U Methamphetamines Scrn (NEGATIVE) Urine MDMA Screen (NEGATIVE) U Benzodiazepines Scrn (NEGATIVE) Urine Cocaine Screen (NEGATIVE) U Marijuana (THC) Screen (NEGATIVE) Ketones Negative 04/18/19 04/18/19 04/18/19 Range/Units 09:07 09:07 09:07 WBC (5.0-10.0) 10^3/uL RBC (4.2-5.4) 10^6/uL Hgb (12.0-16.0) g/dL Hct (37.0-47.0) % MCV (80-100) fL MCH (27.0-34.0) pg MCHC (33.0-35.0) g/dL Plt Count (150-450) 10^3/uL Neut % (Auto) (42.2-75.2) % Lymph % (Auto) (20.5-50.1) % [place] % (Auto) (2-8) % Eos % (Auto) (1.0-3.0) % Baso % (Auto) (0.0-1.0) % Sodium (135-145) mmol/L Potassium (3.6-5.0) mmol/L Chloride (101-111) mmol/L Carbon Dioxide (21.0-31.0) mmol/L Anion Gap BUN (7-18) mg/dL Creatinine (0.6-1.3) mg/dL Est Cr Clr Drug Dosing mL/min Estimated GFR (MDRD) BUN/Creatinine Ratio Glucose (74-105) mg/dL Lactic Acid (0.5-2.0) mmol/L Calcium (8.4-10.2) mg/dl Total Bilirubin (0.2-1.0) mg/dL AST (10-42) IU/L ALT (10-60) IU/L Alkaline Phosphatase (42-121) IU/L Total Protein (6.7-8.2) g/dl Albumin (3.2-5.5) g/dl Globulin Albumin/Globulin Ratio Amylase (28-100) U/L Lipase (22-51) U/L Urine Color Yellow (YELLOW) Urine Appearance Slightly cloudy (CLEAR) Urine pH 7.0 (5.0-9.0) Ur Specific [place] 1.025 (1.005-1.030) Urine Protein >=300 H (NEGATIVE) Urine Glucose (UA) Negative (NEGATIVE) Urine Ketones Negative (NEGATIVE) Urine Occult Blood Small H (NEGATIVE) Urine Nitrite Negative (NEGATIVE) Urine Bilirubin Negative (NEGATIVE) Urine Urobilinogen 0.2 (0.2-1.0) mg/dL Ur Leukocyte Esterase Negative (NEGATIVE) Urine RBC 5-10 H /HPF Urine WBC Not seen (0-5/HPF) /HPF Ur Epithelial Cells Few (NOT SEEN) /HPF Amorphous Sediment Few (NOT SEEN) /HPF Urine Bacteria Few (0-FEW/HPF) /HPF Urine Mucus Few H (NOT SEEN) /LPF Urine HCG, Qual Negative Urine Opiates Screen Positive H (NEGATIVE) Ur Oxycodone Screen Positive H (NEGATIVE) Urine Methadone Screen Negative (NEGATIVE) Ur Barbiturates Screen Negative (NEGATIVE) U Tricyclic Antidepress Negative (NEGATIVE) Ur Phencyclidine Scrn Negative (NEGATIVE) Ur Amphetamine Screen Negative (NEGATIVE) U Methamphetamines Scrn Negative (NEGATIVE) Urine MDMA Screen Negative (NEGATIVE) U Benzodiazepines Scrn Negative (NEGATIVE) Urine Cocaine Screen Negative (NEGATIVE) U Marijuana (THC) Screen Negative (NEGATIVE) Ketones Result Diagrams: 04/18/19 09:06 04/18/19 09:06 Qasim Results Last 24 hrs: Microbiology 04/18/19 08:52 Group A Streptococcus Rapid Screen - Final Throat NEGATIVE STREP A SCREEN REFERENCE RANGE: NEGATIVE 04/18/19 08:48 Influenza Type A Antigen Screen - Final Nasal, Unspecified NEGATIVE INFLUENZA A VIRUS AG REFERENCE RANGE: NEGATIVE Influenza Type B Antigen Screen - Final NEGATIVE INFLUENZA B VIRUS AG REFERENCE RANGE: NEGATIVE Problem List Initiated/Reviewed/Updated: Yes Orders Last 24hrs: Active Orders 24 hr Category Date Time Status Admission Diagnosis [ADT] Routine ADT 04/18/19 11:29 Ordered Patient Status [ADT] Routine ADT 04/18/19 11:29 Active Influenza Vaccine Charge [RC] .DISCHARGE Care 04/18/19 13:26 Active Oxygen Therapy [RC] .PRN Care 04/18/19 12:23 Active Up With Assistance [RC] ASDIRECTED Care 04/18/19 12:23 Active VTE/DVT Education [RC] PER UNIT ROUTINE Care 04/18/19 12:23 Active Vital Signs [RC] Q4H Care 04/18/19 12:23 Active Consistent Carbohydrate Diet [DIET] Diet 04/18/19 Dinner Active BASIC METABOLIC PANEL,BMP [CHEM] AM Lab 04/19/19 05:11 Ordered BASIC METABOLIC PANEL,BMP [CHEM] AM Lab 04/20/19 05:11 Ordered BASIC METABOLIC PANEL,BMP [CHEM] AM Lab 04/21/19 05:11 Ordered CBC WITH AUTO DIFF [HEME] AM Lab 04/19/19 05:11 Ordered CBC WITH AUTO DIFF [HEME] AM Lab 04/20/19 05:11 Ordered CBC WITH AUTO DIFF [HEME] AM Lab 04/21/19 05:11 Ordered CULTURE BLOOD [BC] Stat Lab 04/18/19 09:06 Received CULTURE BLOOD [BC] Stat Lab 04/18/19 09:26 Received CULTURE STREP A CONFIRMATION [RM] Stat Lab 04/18/19 08:52 Results MAGNESIUM [CHEM] AM Lab 04/19/19 05:11 Ordered MAGNESIUM [CHEM] AM Lab 04/20/19 05:11 Ordered MAGNESIUM [CHEM] AM Lab 04/21/19 05:11 Ordered MRSA BY PCR [MREF] Routine Lab 04/18/19 12:31 Ordered PHOSPHORUS [CHEM] AM Lab 04/19/19 05:11 Ordered PHOSPHORUS [CHEM] AM Lab 04/20/19 05:11 Ordered PHOSPHORUS [CHEM] AM Lab 04/21/19 05:11 Ordered STREP PNEUMONIAE ANTIGEN [MREF] Routine Lab 04/18/19 09:07 Received STREP SCRN A RAPID W CULT CONF [RM] Stat Lab 04/18/19 08:52 Results VANCOMYCIN TROUGH [CHEM] Timed Lab 04/19/19 09:30 Ordered Acetaminophen [Tylenol] Med 04/18/19 12:23 Active 650 mg PO Q4H PRN Bumetanide [Bumex] Med 04/18/19 14:00 Active 1 mg PO BIDDIURETIC Cyclophosphamide [Cyclophosphamide] Med 04/19/19 09:00 Ordered 250 mg PO DAILY DULoxetine [Cymbalta] Med 04/19/19 09:00 Active 60 mg PO DAILY Heparin Sodium Med 04/18/19 14:00 Active 5,000 units SUBCUT Q8HR Insulin Glarg,Human.Rec.Analog [LantUS] Med 04/18/19 21:00 Active 30 unit SUBCUT BID Insulin Lispro [HumaLOG] Med 04/18/19 17:00 Active 30 unit SUBCUT TIDMEALS Pantoprazole [ProTONIX] Med 04/19/19 06:00 Active 40 mg PO ACBRK Pharmacy to Dose - InFluenza V [Pharmacy to Dose - Med 04/18/19 13:26 Pending InFluenza Vaccine] 1 each IM ONETIME PRN Pharmacy to Dose - Vancomycin Med 04/18/19 12:45 Pending 1 dose .XX ASDIRECTED Piperacillin/Tazobactam [Zosyn] 3.375 gm Med 04/18/19 13:30 Active Sodium Chloride 0.9% [Normal Saline] 100 ml IV Q6HR Pneumococcal Polyvalent-23 Vac [Pneumovax 23] Med 04/18/19 13:26 Pending 0.5 ml IM .ONCE ONE Potassium Chloride [Klor-Con 10] Med 04/18/19 18:00 Active 10 meq PO BIDMEALS Pregabalin [Lyrica] Med 04/18/19 21:00 Active 150 mg PO BID Sodium Chloride 0.9% [Saline Flush] Med 04/18/19 08:56 Active 10 ml FLUSH ASDIRECTED PRN VANCOmycin/Water for INJ (PEG) [VANCOmycin 1.5 GM/300 Med 04/18/19 18:00 Active ML Premix] 1.5 gm Premix Bag 1 bag IV Q8H cycloSPORINE [Restasis] Med 04/18/19 21:00 Active 0 each EYEBOTH BID predniSONE Med 04/19/19 08:00 Active 10 mg PO DAILY@0800 rOPINIRole [Requip] Med 04/18/19 21:00 Active 0.25 mg PO BEDTIME Blood Culture x2 Reflex Set [OM.PC] Stat Oth 04/18/19 08:56 Ordered Peripheral IV Insertion Adult [OM.PC] Stat Oth 04/18/19 08:55 Ordered Resuscitation Status Routine Resus Stat 04/18/19 12:23 Ordered Medication Orders Acetaminophen (Tylenol) 650 mg PO Q4H PRN PRN Reason: Pain (Mild 1-3)/fever Bumetanide (Bumex) 1 mg PO BIDDIURETIC [facility] Cyclosporine (Restasis) 0 each EYEBOTH BID NELLY Duloxetine HCl (Cymbalta) 60 mg PO DAILY [facility] Heparin Sodium (Porcine) (Heparin Sodium) 5,000 units SUBCUT Q8HR [facility] Piperacillin Sod/Tazobactam (Sod 3.375 gm/ Sodium Chloride) 100 mls @ 200 mls/ hr IV Q6HR NELLY Vancomycin HCl 1.5 gm/ Premix 300 mls @ 200 mls/hr IV Q8H [facility] Influenza Virus Vaccine (Pharmacy To Dose - Influenza Vaccine) 1 each IM ONETIME PRN PRN Reason: Other Insulin Glargine (Lantus) 30 unit SUBCUT BID [facility] Insulin Human Lispro (Humalog) 30 unit SUBCUT TIDMEALS [facility] Non-Formulary Medication (Cyclophosphamide [Cyclophosphamide]) 250 mg PO DAILY [facility] Pantoprazole Sodium (Protonix) 40 mg PO ACBRK [facility] Pneumococcal Polyvalent Vaccine (Pneumovax 23) 0.5 ml IM .ONCE ONE Stop: 04/18/19 13:27 Potassium Chloride (Klor-Con 10) 10 meq PO BIDMEALS [facility] Prednisone (Prednisone) 10 mg PO DAILY@0800 [facility] Pregabalin (Lyrica) 150 mg PO BID [facility] Ropinirole HCl (Requip) 0.25 mg PO BEDTIME [facility] Sodium Chloride (Saline Flush) 10 ml FLUSH ASDIRECTED PRN PRN Reason: Keep Vein Open Last Admin: 04/18/19 09:17 Dose: 10 ml Vancomycin HCl (Pharmacy To Dose - Vancomycin) 1 dose .XX ASDIRECTED [facility] Assessment/Plan Comment:: Sepsis due to pneumonia Start patient on IV Vanco and Zosyn We will obtain blood cultures, strep pneumo antigen, MRSA swab CKD stage III Creatinine baseline We will monitor Type 2 diabetes Continue home regimen Chronic immunosuppression for history of vasculitis Continue prednisone 10 Patient does not require stress dose steroids Hypertension Continue home meds Chronic pain Continue home meds DVT prophylaxis Heparin
[2019-04-18] MEDS ORDERED: Ondansetron 4 MG Tab.DIS PO PRN (16:17)
[2019-04-18] MEDS ORDERED: Insulin Lispro 100 Units/ML 3 ML Vial SUBCUT SCH (17:00)
[2019-04-18] MEDS: Potassium Chloride 10 MEQ Tab.ER PO SCH (17:56)
[2019-04-18] MEDS: Insulin Lispro 100 Units/ML 3 ML Vial SUBCUT SCH ×3 (18:13→18:21)
[2019-04-18] MEDS: rOPINIRole 0.25 MG Tab PO SCH (20:18)
[2019-04-18] MEDS: cycloSPORINE Ophth Drops U/D Box of 30 EYEBOTH SCH (20:18)
[2019-04-18] MEDS: Gabapentin 300 MG Cap PO SCH (20:18)
[2019-04-18] MEDS: Insulin Glarg,Human.Rec.Analog 100 Unit/ML SUBCUT SCH (21:14)
[2019-04-19] MEDS: Acetaminophen 325 MG Tab PO PRN ×3 (02:02→10:36)
[2019-04-19] MEDS: Piperacillin/Tazobactam 3.375 GM in Sodium Chloride 0.9% 100 ML IV SCH ×4 (05:46→23:58)
[2019-04-19] MEDS: Pantoprazole 40 MG Tab.CR PO SCH (05:53)
[2019-04-19] MEDS: Heparin Sodium 5,000 Units/ML Vial SUBCUT SCH ×3 (05:53→22:01)
[2019-04-19] MEDS ORDERED: CYCLOPHOSPHAMIDE PO SCH (09:00)
--- NOTE | 2019-04-19 09:00 | PCM.PN ---
- General Info Date of Service: 04/19/19 Admission Dx/Problem (Free Text): Admission Diagnosis/Problem Admission Diagnosis/Problem Pneumonia Subjective Update: No acute events today. Infectious work-up is been negative. Patient was not receiving breathing treatments, they were later scheduled. She denied any complaints except for pain. - Review of Systems General: Reports: No Symptoms Pulmonary: Reports: Wheezing Cardiovascular: Reports: No Symptoms Gastrointestinal: Reports: No Symptoms Musculoskeletal: Reports: No Symptoms Skin: Reports: No Symptoms - Patient Data Vitals - Most Recent: Last Vital Signs Temp 36.0 C 04/19/19 07:48 Pulse 91 04/19/19 07:48 Resp 20 04/19/19 07:48 BP 122/66 04/19/19 07:48 Pulse Ox 92 L 04/19/19 07:48 Weight - Most Recent: 114.305 kg I&O - Last 24 Hours: Intake & Output 04/18/19 04/19/19 04/19/19 22:59 06:59 14:59 Intake Total 403 Balance 403 Lab Results Last 24 Hours: Laboratory Results - last 24 hr 04/18/19 04/18/19 04/18/19 Range/Units 09:06 09:06 09:06 WBC 7.5 (5.0-10.0) 10^3/uL RBC 3.03 L (4.2-5.4) 10^6/uL Hgb 10.5 L (12.0-16.0) g/dL Hct 33.4 L (37.0-47.0) % MCV 110.2 H D (80-100) fL MCH 34.7 H (27.0-34.0) pg MCHC 31.4 L (33.0-35.0) g/dL Plt Count 151 (150-450) 10^3/uL Neut % (Auto) 79.2 H (42.2-75.2) % Lymph % (Auto) 10.9 L (20.5-50.1) % [place] % (Auto) 8.5 H (2-8) % Eos % (Auto) 1.3 (1.0-3.0) % Baso % (Auto) 0.1 (0.0-1.0) % Sodium 137 (135-145) mmol/L Potassium 3.6 (3.6-5.0) mmol/L Chloride 105 (101-111) mmol/L Carbon Dioxide 21.0 (21.0-31.0) mmol/L Anion Gap 14.6 BUN 21 H (7-18) mg/dL Creatinine 1.3 (0.6-1.3) mg/dL Est Cr Clr Drug Dosing 54.70 mL/min Estimated GFR (MDRD) 44 BUN/Creatinine Ratio 16.15 Glucose 80 (74-105) mg/dL POC Glucose (70-105) mg/dl Lactic Acid 1.3 (0.5-2.0) mmol/L Calcium 8.8 (8.4-10.2) mg/dl Total Bilirubin 0.4 (0.2-1.0) mg/dL AST 26 (10-42) IU/L ALT 22 (10-60) IU/L Alkaline Phosphatase 71 (42-121) IU/L Total Protein 6.7 (6.7-8.2) g/dl Albumin 3.4 (3.2-5.5) g/dl Globulin 3.3 Albumin/Globulin Ratio 1.03 Amylase 56 (28-100) U/L Lipase 46 (22-51) U/L Urine Color (YELLOW) Urine Appearance (CLEAR) Urine pH (5.0-9.0) Ur Specific [place] (1.005-1.030) Urine Protein (NEGATIVE) Urine Glucose (UA) (NEGATIVE) Urine Ketones (NEGATIVE) Urine Occult Blood (NEGATIVE) Urine Nitrite (NEGATIVE) Urine Bilirubin (NEGATIVE) Urine Urobilinogen (0.2-1.0) mg/dL Ur Leukocyte Esterase (NEGATIVE) Urine RBC /HPF Urine WBC (0-5/HPF) /HPF Ur Epithelial Cells (NOT SEEN) /HPF Amorphous Sediment (NOT SEEN) /HPF Urine Bacteria (0-FEW/HPF) /HPF Urine Mucus (NOT SEEN) /LPF Urine HCG, Qual Urine Opiates Screen (NEGATIVE) Ur Oxycodone Screen (NEGATIVE) Urine Methadone Screen (NEGATIVE) Ur Barbiturates Screen (NEGATIVE) U Tricyclic Antidepress (NEGATIVE) Ur Phencyclidine Scrn (NEGATIVE) Ur Amphetamine Screen (NEGATIVE) U Methamphetamines Scrn (NEGATIVE) Urine MDMA Screen (NEGATIVE) U Benzodiazepines Scrn (NEGATIVE) Urine Cocaine Screen (NEGATIVE) U Marijuana (THC) Screen (NEGATIVE) Ketones Negative 04/18/19 04/18/19 04/18/19 Range/Units 09:07 09:07 09:07 WBC (5.0-10.0) 10^3/uL RBC (4.2-5.4) 10^6/uL Hgb (12.0-16.0) g/dL Hct (37.0-47.0) % MCV (80-100) fL MCH (27.0-34.0) pg MCHC (33.0-35.0) g/dL Plt Count (150-450) 10^3/uL Neut % (Auto) (42.2-75.2) % Lymph % (Auto) (20.5-50.1) % [place]ack[place] % (Auto) (2-8) % Eos % (Auto) (1.0-3.0) % Baso % (Auto) (0.0-1.0) % Sodium (135-145) mmol/L Potassium (3.6-5.0) mmol/L Chloride (101-111) mmol/L Carbon Dioxide (21.0-31.0) mmol/L Anion Gap BUN (7-18) mg/dL Creatinine (0.6-1.3) mg/dL Est Cr Clr Drug Dosing mL/min Estimated GFR (MDRD) BUN/Creatinine Ratio Glucose (74-105) mg/dL POC Glucose (70-105) mg/dl Lactic Acid (0.5-2.0) mmol/L Calcium (8.4-10.2) mg/dl Total Bilirubin (0.2-1.0) mg/dL AST (10-42) IU/L ALT (10-60) IU/L Alkaline Phosphatase (42-121) IU/L Total Protein (6.7-8.2) g/dl Albumin (3.2-5.5) g/dl Globulin Albumin/Globulin Ratio Amylase (28-100) U/L Lipase (22-51) U/L Urine Color Yellow (YELLOW) Urine Appearance Slightly cloudy (CLEAR) Urine pH 7.0 (5.0-9.0) Ur Specific [place] 1.025 (1.005-1.030) Urine Protein >=300 H (NEGATIVE) Urine Glucose (UA) Negative (NEGATIVE) Urine Ketones Negative (NEGATIVE) Urine Occult Blood Small H (NEGATIVE) Urine Nitrite Negative (NEGATIVE) Urine Bilirubin Negative (NEGATIVE) Urine Urobilinogen 0.2 (0.2-1.0) mg/dL Ur Leukocyte Esterase Negative (NEGATIVE) Urine RBC 5-10 H /HPF Urine WBC Not seen (0-5/HPF) /HPF Ur Epithelial Cells Few (NOT SEEN) /HPF Amorphous Sediment Few (NOT SEEN) /HPF Urine Bacteria Few (0-FEW/HPF) /HPF Urine Mucus Few H (NOT SEEN) /LPF Urine HCG, Qual Negative Urine Opiates Screen Positive H (NEGATIVE) Ur Oxycodone Screen Positive H (NEGATIVE) Urine Methadone Screen Negative (NEGATIVE) Ur Barbiturates Screen Negative (NEGATIVE) U Tricyclic Antidepress Negative (NEGATIVE) Ur Phencyclidine Scrn Negative (NEGATIVE) Ur Amphetamine Screen Negative (NEGATIVE) U Methamphetamines Scrn Negative (NEGATIVE) Urine MDMA Screen Negative (NEGATIVE) U Benzodiazepines Scrn Negative (NEGATIVE) Urine Cocaine Screen Negative (NEGATIVE) U Marijuana (THC) Screen Negative (NEGATIVE) Ketones 04/18/19 04/18/19 04/18/19 Range/Units 12:05 16:49 20:53 WBC (5.0-10.0) 10^3/uL RBC (4.2-5.4) 10^6/uL Hgb (12.0-16.0) g/dL Hct (37.0-47.0) % MCV (80-100) fL MCH (27.0-34.0) pg MCHC (33.0-35.0) g/dL Plt Count (150-450) 10^3/uL Neut % (Auto) (42.2-75.2) % Lymph % (Auto) (20.5-50.1) % [place] % (Auto) (2-8) % Eos % (Auto) (1.0-3.0) % Baso % (Auto) (0.0-1.0) % Sodium (135-145) mmol/L Potassium (3.6-5.0) mmol/L Chloride (101-111) mmol/L Carbon Dioxide (21.0-31.0) mmol/L Anion Gap BUN (7-18) mg/dL Creatinine (0.6-1.3) mg/dL Est Cr Clr Drug Dosing mL/min Estimated GFR (MDRD) BUN/Creatinine Ratio Glucose (74-105) mg/dL POC Glucose 123 H 152 H 116 H (70-105) mg/dl Lactic Acid (0.5-2.0) mmol/L Calcium (8.4-10.2) mg/dl Total Bilirubin (0.2-1.0) mg/dL AST (10-42) IU/L ALT (10-60) IU/L Alkaline Phosphatase (42-121) IU/L Total Protein (6.7-8.2) g/dl Albumin (3.2-5.5) g/dl Globulin Albumin/Globulin Ratio Amylase (28-100) U/L Lipase (22-51) U/L Urine Color (YELLOW) Urine Appearance (CLEAR) Urine pH (5.0-9.0) Ur Specific [place] (1.005-1.030) Urine Protein (NEGATIVE) Urine Glucose (UA) (NEGATIVE) Urine Ketones (NEGATIVE) Urine Occult Blood (NEGATIVE) Urine Nitrite (NEGATIVE) Urine Bilirubin (NEGATIVE) Urine Urobilinogen (0.2-1.0) mg/dL Ur Leukocyte Esterase (NEGATIVE) Urine RBC /HPF Urine WBC (0-5/HPF) /HPF Ur Epithelial Cells (NOT SEEN) /HPF Amorphous Sediment (NOT SEEN) /HPF Urine Bacteria (0-FEW/HPF) /HPF Urine Mucus (NOT SEEN) /LPF Urine HCG, Qual Urine Opiates Screen (NEGATIVE) Ur Oxycodone Screen (NEGATIVE) Urine Methadone Screen (NEGATIVE) Ur Barbiturates Screen (NEGATIVE) U Tricyclic Antidepress (NEGATIVE) Ur Phencyclidine Scrn (NEGATIVE) Ur Amphetamine Screen (NEGATIVE) U Methamphetamines Scrn (NEGATIVE) Urine MDMA Screen (NEGATIVE) U Benzodiazepines Scrn (NEGATIVE) Urine Cocaine Screen (NEGATIVE) U Marijuana (THC) Screen (NEGATIVE) Ketones 04/19/19 Range/Units 06:56 WBC (5.0-10.0) 10^3/uL RBC (4.2-5.4) 10^6/uL Hgb (12.0-16.0) g/dL Hct (37.0-47.0) % MCV (80-100) fL MCH (27.0-34.0) pg MCHC (33.0-35.0) g/dL Plt Count (150-450) 10^3/uL Neut % (Auto) (42.2-75.2) % Lymph % (Auto) (20.5-50.1) % [place] % (Auto) (2-8) % Eos % (Auto) (1.0-3.0) % Baso % (Auto) (0.0-1.0) % Sodium (135-145) mmol/L Potassium (3.6-5.0) mmol/L Chloride (101-111) mmol/L Carbon Dioxide (21.0-31.0) mmol/L Anion Gap BUN (7-18) mg/dL Creatinine (0.6-1.3) mg/dL Est Cr Clr Drug Dosing mL/min Estimated GFR (MDRD) BUN/Creatinine Ratio Glucose (74-105) mg/dL POC Glucose 106 H (70-105) mg/dl Lactic Acid (0.5-2.0) mmol/L Calcium (8.4-10.2) mg/dl Total Bilirubin (0.2-1.0) mg/dL AST (10-42) IU/L ALT (10-60) IU/L Alkaline Phosphatase (42-121) IU/L Total Protein (6.7-8.2) g/dl Albumin (3.2-5.5) g/dl Globulin Albumin/Globulin Ratio Amylase (28-100) U/L Lipase (22-51) U/L Urine Color (YELLOW) Urine Appearance (CLEAR) Urine pH (5.0-9.0) Ur Specific [place] (1.005-1.030) Urine Protein (NEGATIVE) Urine Glucose (UA) (NEGATIVE) Urine Ketones (NEGATIVE) Urine Occult Blood (NEGATIVE) Urine Nitrite (NEGATIVE) Urine Bilirubin (NEGATIVE) Urine Urobilinogen (0.2-1.0) mg/dL Ur Leukocyte Esterase (NEGATIVE) Urine RBC /HPF Urine WBC (0-5/HPF) /HPF Ur Epithelial Cells (NOT SEEN) /HPF Amorphous Sediment (NOT SEEN) /HPF Urine Bacteria (0-FEW/HPF) /HPF Urine Mucus (NOT SEEN) /LPF Urine HCG, Qual Urine Opiates Screen (NEGATIVE) Ur Oxycodone Screen (NEGATIVE) Urine Methadone Screen (NEGATIVE) Ur Barbiturates Screen (NEGATIVE) U Tricyclic Antidepress (NEGATIVE) Ur Phencyclidine Scrn (NEGATIVE) Ur Amphetamine Screen (NEGATIVE) U Methamphetamines Scrn (NEGATIVE) Urine MDMA Screen (NEGATIVE) U Benzodiazepines Scrn (NEGATIVE) Urine Cocaine Screen (NEGATIVE) U Marijuana (THC) Screen (NEGATIVE) Ketones Qasim Results Last 24 Hours: Microbiology 04/18/19 08:52 Quick Strep Confirmation Culture - Final Throat NO GROUP A STREP ISOLATED REFERENCE RANGE: NEGATIVE Group A Streptococcus Rapid Screen - Final NEGATIVE STREP A SCREEN REFERENCE RANGE: NEGATIVE 04/18/19 09:07 Streptococcus pneumoniae Antigen (M - Final Urine 04/18/19 08:48 Influenza Type A Antigen Screen - Final Nasal, Unspecified NEGATIVE INFLUENZA A VIRUS AG REFERENCE RANGE: NEGATIVE Influenza Type B Antigen Screen - Final NEGATIVE INFLUENZA B VIRUS AG REFERENCE RANGE: NEGATIVE Med Orders - Current: Current Medications Acetaminophen (Tylenol) 650 mg PO Q4H PRN PRN Reason: Pain (Mild 1-3)/fever Last Admin: 04/19/19 06:19 Dose: 650 mg Bumetanide (Bumex) 1 mg PO BIDDIURETIC [facility] Last Admin: 04/18/19 14:53 Dose: 1 mg Cyclosporine (Restasis) 0 each EYEBOTH BID [facility] Last Admin: 04/18/19 20:18 Dose: 1 drop Duloxetine HCl (Cymbalta) 60 mg PO DAILY [facility] Gabapentin (Neurontin) 300 mg PO TID [facility] Last Admin: 04/18/19 20:18 Dose: 300 mg Heparin Sodium (Porcine) (Heparin Sodium) 5,000 units SUBCUT Q8HR [facility] Last Admin: 04/19/19 05:53 Dose: 5,000 units Piperacillin Sod/Tazobactam (Sod 3.375 gm/ Sodium Chloride) 100 mls @ 200 mls/ hr IV Q6HR [facility] Last Admin: 04/19/19 05:46 Dose: 200 mls/hr Vancomycin HCl 1.5 gm/ Premix 300 mls @ 200 mls/hr IV Q8H [facility] Last Admin: 04/19/19 01:50 Dose: 200 mls/hr Influenza Virus Vaccine (Pharmacy To Dose - Influenza Vaccine) 1 each IM ONETIME PRN PRN Reason: Other Insulin Glargine (Lantus) 30 unit SUBCUT BID [facility] Last Admin: 04/18/19 21:14 Dose: 30 unit Insulin Human Lispro (Humalog) 10 unit SUBCUT BIDMEALS [facility] Last Admin: 04/18/19 18:21 Dose: 10 unit Non-Formulary Medication (Cyclophosphamide [Cyclophosphamide]) 250 mg PO DAILY [facility] Ondansetron HCl (Zofran Odt) 4 mg PO QID PRN PRN Reason: Nausea/Vomiting Pantoprazole Sodium (Protonix) 40 mg PO ACBRK [facility] Last Admin: 04/19/19 05:53 Dose: 40 mg Pneumococcal Polyvalent Vaccine (Pneumovax 23) 0.5 ml IM .ONCE ONE Stop: 04/18/19 13:27 Potassium Chloride (Klor-Con 10) 10 meq PO BIDMEALS [facility] Last Admin: 04/18/19 17:56 Dose: 10 meq Prednisone (Prednisone) 10 mg PO DAILY@0800 [facility] Pregabalin (Lyrica) 150 mg PO BID [facility] Last Admin: 04/18/19 20:17 Dose: 150 mg Ropinirole HCl (Requip) 0.25 mg PO BEDTIME [facility] Last Admin: 04/18/19 20:18 Dose: 0.25 mg Sodium Chloride (Saline Flush) 10 ml FLUSH ASDIRECTED PRN PRN Reason: Keep Vein Open Last Admin: 04/18/19 09:17 Dose: 10 ml Vancomycin HCl (Pharmacy To Dose - Vancomycin) 1 dose .XX ASDIRECTED [facility] Discontinued Medications Acetaminophen (Tylenol) 650 mg PO NOW ONE Stop: 04/18/19 08:58 Last Admin: 04/18/19 09:19 Dose: 650 mg Diphenhydramine HCl (Benadryl) 25 mg IVPUSH ONETIME ONE Stop: 04/18/19 09:09 Last Admin: 04/18/19 09:30 Dose: 25 mg Sodium Chloride (Normal Saline) 1,000 mls @ 999 mls/hr IV .BOLUS ONE Stop: 04/18/19 09:57 Last Infusion: 04/18/19 10:19 Dose: Infused Vancomycin HCl 1.5 gm/ Premix 300 mls @ 200 mls/hr IV ONETIME ONE Stop: 04/18/19 11:29 Last Admin: 04/18/19 10:19 Dose: 200 mls/hr Insulin Human Lispro (Humalog) 30 unit SUBCUT TIDMEALS [facility] Last Admin: 04/18/19 17:46 Dose: Not Given Insulin Human Lispro (Humalog) 10 unit SUBCUT BIDMEALS [facility] Last Admin: 04/18/19 18:14 Dose: Not Given Ondansetron HCl (Zofran) 4 mg IV ONETIME ONE Stop: 04/18/19 08:58 Last Admin: 04/18/19 09:20 Dose: 4 mg - Exam General: Alert, Oriented Lungs: Wheezing Cardiovascular: Regular Rate, Regular Rhythm GI/Abdominal Exam: Normal Bowel Sounds, Soft, Non-Tender Extremities: No Pedal Edema Skin: Warm, Dry, Intact Neurological: No New Focal Deficit Psy/Mental Status: Alert, Normal Affect, Normal Mood Sepsis Event Note - Evaluation Sepsis Screening Result: Sepsis Risk - Focused Exam Vital Signs: Vital Signs Temp Pulse Resp BP Pulse Ox 04/19/19 07:48 36.0 C 91 20 122/66 92 L 04/19/19 04:00 36.1 C 99 20 105/68 95 04/19/19 00:00 37.7 C 108 H 22 H 132/72 91 L Date Exam was Performed: 04/19/19 Time Exam was Performed: 14:59 - Problem List Review Problem List Initiated/Reviewed/Updated: Yes - My Orders Last 24 Hours: My Active Orders 04/18/19 12:23 Oxygen Therapy [RC] .PRN Up With Assistance [RC] ASDIRECTED VTE/DVT Education [RC] PER UNIT ROUTINE Vital Signs [RC] Q4H Acetaminophen [Tylenol] 650 mg PO Q4H PRN Resuscitation Status Routine 04/18/19 12:31 MRSA BY PCR [MREF] Routine 04/18/19 12:45 Pharmacy to Dose - Vancomycin 1 dose .XX ASDIRECTED 04/18/19 13:26 Influenza Vaccine Charge [RC] .DISCHARGE Pharmacy to Dose - InFluenza V [Pharmacy to Dose - InFluenza Vaccine] 1 each IM ONETIME PRN Pneumococcal Polyvalent-23 Vac [Pneumovax 23] 0.5 ml IM .ONCE ONE 04/18/19 13:30 Piperacillin/Tazobactam [Zosyn] 3.375 gm Sodium Chloride 0.9% [Normal Saline] 100 ml IV Q6HR 04/18/19 14:00 Bumetanide [Bumex] 1 mg PO BIDDIURETIC Heparin Sodium 5,000 units SUBCUT Q8HR 04/18/19 16:17 Ondansetron [Zofran ODT] 4 mg PO QID PRN 04/18/19 18:00 Potassium Chloride [Klor-Con 10] 10 meq PO BIDMEALS VANCOmycin/Water for INJ (PEG) [VANCOmycin 1.5 GM/300 ML Premix] 1.5 gm Premix Bag 1 bag IV Q8H 04/18/19 18:05 Insulin Lispro [HumaLOG] 10 unit SUBCUT BIDMEALS 04/18/19 21:00 Gabapentin [Neurontin] 300 mg PO TID Insulin Glarg,Human.Rec.Analog [LantUS] 30 unit SUBCUT BID Pregabalin [Lyrica] 150 mg PO BID cycloSPORINE [Restasis] 0 each EYEBOTH BID rOPINIRole [Requip] 0.25 mg PO BEDTIME 04/18/19 Dinner Consistent Carbohydrate Diet [DIET] 04/19/19 05:11 BASIC METABOLIC PANEL,BMP [CHEM] AM CBC WITH AUTO DIFF [HEME] AM MAGNESIUM [CHEM] AM PHOSPHORUS [CHEM] AM 04/19/19 06:00 Pantoprazole [ProTONIX] 40 mg PO ACBRK 04/19/19 07:19 POC Glucose [Blood Glucose Check, Bedside] [RC] QIDACANDBED 04/19/19 08:00 predniSONE 10 mg PO DAILY@0800 04/19/19 09:00 Cyclophosphamide [Cyclophosphamide] 250 mg PO DAILY DULoxetine [Cymbalta] 60 mg PO DAILY 04/19/19 09:30 VANCOMYCIN TROUGH [CHEM] Timed 04/20/19 05:11 BASIC METABOLIC PANEL,BMP [CHEM] AM CBC WITH AUTO DIFF [HEME] AM MAGNESIUM [CHEM] AM PHOSPHORUS [CHEM] AM 04/21/19 05:11 BASIC METABOLIC PANEL,BMP [CHEM] AM CBC WITH AUTO DIFF [HEME] AM MAGNESIUM [CHEM] AM PHOSPHORUS [CHEM] AM - Plan Plan:: Sepsis due to pneumonia Start patient on IV Vanco and Zosyn Awaiting final infectious work-up Strep pneumo antigen is negative CKD stage III Creatinine baseline We will monitor Type 2 diabetes Continue home regimen Chronic immunosuppression for history of vasculitis Continue prednisone 10 Patient does not require stress dose steroids Hypertension Continue home meds Chronic pain Continue home meds DVT prophylaxis Heparin
[2019-04-19] MEDS: Insulin Glarg,Human.Rec.Analog 100 Unit/ML SUBCUT SCH ×2 (09:12→21:59)
[2019-04-19] MEDS: Insulin Lispro 100 Units/ML 3 ML Vial SUBCUT SCH ×3 (09:12→22:00)
[2019-04-19] MEDS: Gabapentin 300 MG Cap PO SCH (09:13)
[2019-04-19] MEDS: Bumetanide 1 MG Tab PO SCH ×2 (09:13→13:46)
[2019-04-19] MEDS: Potassium Chloride 10 MEQ Tab.ER PO SCH ×2 (09:13→18:14)
[2019-04-19] MEDS: DULoxetine 30 MG Cap PO SCH (09:13)
[2019-04-19] MEDS: predniSONE 10 MG Tab PO SCH (09:14)
[2019-04-19] MEDS: cycloSPORINE Ophth Drops U/D Box of 30 EYEBOTH SCH ×2 (09:15→22:02)
[2019-04-19 09:58] LABS: ANION GAP 12.9
[2019-04-19] MEDS ORDERED: Magnesium Sulfate/Water 2 GM in Premix Bag 1 BAG IV ONE (11:10)
[2019-04-19] MEDS: oxyCODONE 5 MG Tab PO PRN ×2 (14:24→22:41)
[2019-04-19] MEDS: Albuterol/Ipratropium 3.0-0.5 MG/3 ML Neb Soln NEB SCH ×3 (15:04→22:41)
[2019-04-19] MEDS: rOPINIRole 0.25 MG Tab PO SCH (22:02)
[2019-04-19] MEDS: Sodium Chloride 0.9% 10 ML Syringe FLUSH PRN (23:58)
[2019-04-20] MEDS: Albuterol/Ipratropium 3.0-0.5 MG/3 ML Neb Soln NEB SCH ×3 (04:48→11:44)
[2019-04-20] MEDS: Piperacillin/Tazobactam 3.375 GM in Sodium Chloride 0.9% 100 ML IV SCH ×2 (06:04→14:04)
[2019-04-20] MEDS: Pantoprazole 40 MG Tab.CR PO SCH (06:07)
[2019-04-20] MEDS: Heparin Sodium 5,000 Units/ML Vial SUBCUT SCH ×2 (06:07→14:05)
[2019-04-20 06:41] LABS: ANION GAP 15.6
[2019-04-20] MEDS: Bumetanide 1 MG Tab PO SCH ×2 (08:23→14:05)
[2019-04-20] MEDS: Insulin Lispro 100 Units/ML 3 ML Vial SUBCUT SCH ×3 (08:24→14:04)
[2019-04-20] MEDS: Insulin Glarg,Human.Rec.Analog 100 Unit/ML SUBCUT SCH (08:25)
[2019-04-20] MEDS: Potassium Chloride 10 MEQ Tab.ER PO SCH (08:27)
[2019-04-20] MEDS: predniSONE 10 MG Tab PO SCH (08:27)
[2019-04-20] MEDS: DULoxetine 30 MG Cap PO SCH (08:28)
[2019-04-20] MEDS: cycloSPORINE Ophth Drops U/D Box of 30 EYEBOTH SCH (08:29)
[2019-04-20] MEDS: Benzonatate 100 MG Cap PO SCH ×2 (08:29→14:05)
[2019-04-20] MEDS: oxyCODONE 5 MG Tab PO PRN (08:35)
[2019-04-20 08:44] VITALS: PULSE 102
--- NOTE | 2019-04-20 10:23 | PCM.DCSUM1 ---
Discharge Summary - Hospital Course Free Text/Narrative:: Ms. 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 Infectious work-up was nonrevealing. Patient improved with IV antibiotics. She was later switched to oral meds, and was discharged in stable condition to finish course of antibiotics. Patient will need to reschedule appointment with pain management, nephrology, as well as with rheumatology. - Discharge Data Discharge Date: 04/20/19 Discharge Disposition: Home, Self-Care 01 Condition: Good - Referral to Home Health Primary Care Physician: PCP Unobtainable - Discharge Plan *PRESCRIPTION DRUG MONITORING PROGRAM REVIEWED*: Not Applicable *COPY OF PRESCRIPTION DRUG MONITORING REPORT IN PATIENT MAURICIO: Not Applicable Prescriptions/Med Rec: Amoxicillin/Potassium Clav [Augmentin 875-125 Tablet] 1 each PO BID #10 tablet Benzonatate [Tessalon Perle] 100 mg PO TID PRN #30 capsule PRN Reason: Cough Home Medications: Home Meds Pantoprazole [Pantoprazole Sodium] 40 mg PO DAILY 09/13/14 [History] rOPINIRole [Requip] 0.25 mg PO BEDTIME 08/13/15 [History] cycloSPORINE [Restasis] 1 drop EYEBOTH BID 04/14/16 [History] Bumetanide [Bumex] 1 mg PO BID 04/24/18 [History] Potassium Chloride [Klor-Con 10] 10 meq PO BID 04/24/18 [History] metFORMIN HCl [Metformin HCl] 1,000 mg PO BIDMEALS 04/24/18 [History] Cyclophosphamide 250 mg PO DAILY 10/31/18 [History] DULoxetine [Cymbalta] 60 mg PO DAILY 10/31/18 [History] Insulin Aspart [NovoLOG] 10 unit SQ TIDMEALS 10/31/18 [History] Insulin Glargine,Hum.Rec.Anlog [Basaglar Kwikpen U-100] 30 unit SQ BID 10/31/18 [History] Metoclopramide HCl 10 mg PO TID PRN 10/31/18 [History] Mirabegron [Myrbetriq] 25 mg PO DAILY 10/31/18 [History] Pregabalin [Lyrica] 150 mg PO BID 10/31/18 [History] oxyCODONE HCl/Acetaminophen [Percocet 7.5-325 mg Tablet] 1 tab PO TID PRN [History] predniSONE [Prednisone] 10 mg PO DAILY 10/31/18 [History] Alum Hydrox/Mag Hydrox/Simeth [Mag-Al Plus] 30 ml PO BID #30 cup 11/04/18 [Rx] Amoxicillin/Potassium Clav [Augmentin 875-125 Tablet] 1 each PO BID #10 tablet 04/20/19 [Rx] Benzonatate [Tessalon Perle] 100 mg PO TID PRN #30 capsule 04/20/19 [Rx] Patient Handouts: Amoxicillin; Clavulanic Acid tablets, How to Use a Nebulizer , Adult, Sepsis, Adult, Community-Acquired Pneumonia, Adult, Benzonatate capsules Referrals: PCP,Unobtain [Primary Care Provider] - - Discharge Summary/Plan Comment DC Time >30 min.: Yes - General Info Date of Service: 04/20/19 Admission Dx/Problem (Free Text: Admission Diagnosis/Problem Admission Diagnosis/Problem Pneumonia Subjective Update: Patient feels better today. She denies any major complaints. - Patient Data Vitals - Most Recent: Last Vital Signs Temp 36.9 C 04/20/19 08:00 Pulse 102 H 04/20/19 08:00 Resp 19 04/20/19 08:00 BP 143/69 H 04/20/19 08:00 Pulse Ox 95 04/20/19 08:00 Weight - Most Recent: 114.305 kg I&O - Last 24 hours: Intake & Output 04/19/19 04/20/19 04/20/19 22:59 06:59 14:59 Intake Total 250 653 Balance 250 653 Lab Results - Last 24 hrs: Laboratory Results - last 24 hr 04/19/19 04/19/19 04/19/19 Range/Units 09:27 09:27 11:37 WBC (5.0-10.0) 10^3/uL RBC (4.2-5.4) 10^6/uL Hgb (12.0-16.0) g/dL Hct (37.0-47.0) % MCV (80-100) fL MCH (27.0-34.0) pg MCHC (33.0-35.0) g/dL Plt Count (150-450) 10^3/uL Neut % (Auto) (42.2-75.2) % Lymph % (Auto) (20.5-50.1) % Henderson % (Auto) (2-8) % Eos % (Auto) (1.0-3.0) % Baso % (Auto) (0.0-1.0) % Sodium 139 (135-145) mmol/L Potassium 3.9 (3.6-5.0) mmol/L Chloride 108 (101-111) mmol/L Carbon Dioxide 22.0 (21.0-31.0) mmol/L Anion Gap 12.9 BUN 24 H (7-18) mg/dL Creatinine 1.6 H (0.6-1.3) mg/dL Est Cr Clr Drug Dosing 43.63 mL/min Estimated GFR (MDRD) 35 Glucose 179 H (74-105) mg/dL POC Glucose 137 H (70-105) mg/dl Calcium 8.7 (8.4-10.2) mg/dl Phosphorus 4.5 (2.5-4.6) mg/dL Magnesium 1.7 L (1.8-2.5) mg/dL Vancomycin Trough 38.5 H (10-15) ug/ml Random Vancomycin ug/mL 04/19/19 04/19/19 04/19/19 Range/Units 15:56 16:42 21:14 WBC (5.0-10.0) 10^3/uL RBC (4.2-5.4) 10^6/uL Hgb (12.0-16.0) g/dL Hct (37.0-47.0) % MCV (80-100) fL MCH (27.0-34.0) pg MCHC (33.0-35.0) g/dL Plt Count (150-450) 10^3/uL Neut % (Auto) (42.2-75.2) % Lymph % (Auto) (20.5-50.1) % Henderson % (Auto) (2-8) % Eos % (Auto) (1.0-3.0) % Baso % (Auto) (0.0-1.0) % Sodium (135-145) mmol/L Potassium (3.6-5.0) mmol/L Chloride (101-111) mmol/L Carbon Dioxide (21.0-31.0) mmol/L Anion Gap BUN (7-18) mg/dL Creatinine (0.6-1.3) mg/dL Est Cr Clr Drug Dosing mL/min Estimated GFR (MDRD) Glucose (74-105) mg/dL POC Glucose 196 H 261 H (70-105) mg/dl Calcium (8.4-10.2) mg/dl Phosphorus (2.5-4.6) mg/dL Magnesium (1.8-2.5) mg/dL Vancomycin Trough (10-15) ug/ml Random Vancomycin 30.9 ug/mL 04/20/19 04/20/19 04/20/19 Range/Units 05:55 05:55 05:55 WBC 3.4 L (5.0-10.0) 10^3/uL RBC 2.67 L (4.2-5.4) 10^6/uL Hgb 9.2 L (12.0-16.0) g/dL Hct 28.7 L (37.0-47.0) % MCV 107.5 H D (80-100) fL MCH 34.5 H (27.0-34.0) pg MCHC 32.1 L (33.0-35.0) g/dL Plt Count 145 L (150-450) 10^3/uL Neut % (Auto) 69.7 (42.2-75.2) % Lymph % (Auto) 17.2 L (20.5-50.1) % Henderson % (Auto) 10.4 H (2-8) % Eos % (Auto) 2.4 (1.0-3.0) % Baso % (Auto) 0.3 (0.0-1.0) % Sodium 138 (135-145) mmol/L Potassium 3.6 (3.6-5.0) mmol/L Chloride 103 (101-111) mmol/L Carbon Dioxide 23.0 (21.0-31.0) mmol/L Anion Gap 15.6 BUN 27 H (7-18) mg/dL Creatinine 1.7 H (0.6-1.3) mg/dL Est Cr Clr Drug Dosing 41.07 mL/min Estimated GFR (MDRD) 33 Glucose 107 H (74-105) mg/dL POC Glucose (70-105) mg/dl Calcium 8.2 L (8.4-10.2) mg/dl Phosphorus 4.8 H (2.5-4.6) mg/dL Magnesium 2.0 (1.8-2.5) mg/dL Vancomycin Trough 17.1 H (10-15) ug/ml Random Vancomycin ug/mL 04/20/19 Range/Units 07:34 WBC (5.0-10.0) 10^3/uL RBC (4.2-5.4) 10^6/uL Hgb (12.0-16.0) g/dL Hct (37.0-47.0) % MCV (80-100) fL MCH (27.0-34.0) pg MCHC (33.0-35.0) g/dL Plt Count (150-450) 10^3/uL Neut % (Auto) (42.2-75.2) % Lymph % (Auto) (20.5-50.1) % Henderson % (Auto) (2-8) % Eos % (Auto) (1.0-3.0) % Baso % (Auto) (0.0-1.0) % Sodium (135-145) mmol/L Potassium (3.6-5.0) mmol/L Chloride (101-111) mmol/L Carbon Dioxide (21.0-31.0) mmol/L Anion Gap BUN (7-18) mg/dL Creatinine (0.6-1.3) mg/dL Est Cr Clr Drug Dosing mL/min Estimated GFR (MDRD) Glucose (74-105) mg/dL POC Glucose 77 (70-105) mg/dl Calcium (8.4-10.2) mg/dl Phosphorus (2.5-4.6) mg/dL Magnesium (1.8-2.5) mg/dL Vancomycin Trough (10-15) ug/ml Random Vancomycin ug/mL JHONNY Results - Last 24 hrs: Microbiology 04/18/19 09:26 Aerobic Blood Culture - Preliminary Blood - Venous - Lab Draw NO GROWTH AFTER 2 DAYS Anaerobic Blood Culture - Preliminary NO GROWTH AFTER 2 DAYS 04/18/19 09:06 Aerobic Blood Culture - Preliminary Blood - Venous NO GROWTH AFTER 2 DAYS Anaerobic Blood Culture - Preliminary NO GROWTH AFTER 2 DAYS 04/18/19 08:52 Quick Strep Confirmation Culture - Final Throat NO GROUP A STREP ISOLATED REFERENCE RANGE: NEGATIVE Group A Streptococcus Rapid Screen - Final NEGATIVE STREP A SCREEN REFERENCE RANGE: NEGATIVE 04/18/19 09:07 Streptococcus pneumoniae Antigen (M - Final Urine Med Orders - Current: Current Medications Acetaminophen (Tylenol) 650 mg PO Q4H PRN PRN Reason: Pain (Mild 1-3)/fever Last Admin: 04/19/19 10:36 Dose: 650 mg Albuterol/Ipratropium (Duoneb 3.0-0.5 Mg/3 Ml) 3 ml NEB Q4HRRT [facility] Last Admin: 04/20/19 07:22 Dose: 3 ml Benzonatate (Tessalon Perles) 100 mg PO TID [facility] Last Admin: 04/20/19 08:29 Dose: 100 mg Bumetanide (Bumex) 1 mg PO BIDDIURETIC [facility] Last Admin: 04/20/19 08:23 Dose: 1 mg Cyclosporine (Restasis) 0 each EYEBOTH BID [facility] Last Admin: 04/20/19 08:29 Dose: 1 drop Duloxetine HCl (Cymbalta) 60 mg PO DAILY [facility] Last Admin: 04/20/19 08:28 Dose: 60 mg Heparin Sodium (Porcine) (Heparin Sodium) 5,000 units SUBCUT Q8HR [facility] Last Admin: 04/20/19 06:07 Dose: 5,000 units Piperacillin Sod/Tazobactam (Sod 3.375 gm/ Sodium Chloride) 100 mls @ 200 mls/ hr IV Q6HR [facility] Last Admin: 04/20/19 06:04 Dose: 200 mls/hr Vancomycin HCl 1.5 gm/ Premix 300 mls @ 200 mls/hr IV Q24H [facility] Last Infusion: 04/20/19 09:43 Dose: Infused Influenza Virus Vaccine (Pharmacy To Dose - Influenza Vaccine) 1 each IM ONETIME PRN PRN Reason: Other Insulin Glargine (Lantus) 30 unit SUBCUT BID [facility] Last Admin: 04/20/19 08:25 Dose: 30 unit Insulin Human Lispro (Humalog) 10 unit SUBCUT BIDMEALS [facility] Last Admin: 04/20/19 08:24 Dose: 10 unit Insulin Human Lispro (Humalog) 0 unit SUBCUT WITHMEALSANDBED [facility]; Protocol Last Admin: 04/20/19 08:26 Dose: Not Given Ondansetron HCl (Zofran Odt) 4 mg PO QID PRN PRN Reason: Nausea/Vomiting Oxycodone HCl (Oxycodone) 5 mg PO Q8H PRN PRN Reason: Pain Last Admin: 04/20/19 08:35 Dose: 5 mg Pantoprazole Sodium (Protonix) 40 mg PO ACBRK [facility] Last Admin: 04/20/19 06:07 Dose: 40 mg Pneumococcal Polyvalent Vaccine (Pneumovax 23) 0.5 ml IM .ONCE ONE Stop: 04/18/19 13:27 Potassium Chloride (Klor-Con 10) 10 meq PO BIDMEALS [facility] Last Admin: 04/20/19 08:27 Dose: 10 meq Prednisone (Prednisone) 10 mg PO DAILY@0800 [facility] Last Admin: 04/20/19 08:27 Dose: 10 mg Pregabalin (Lyrica) 150 mg PO BID [facility] Last Admin: 04/20/19 08:28 Dose: 150 mg Ropinirole HCl (Requip) 0.25 mg PO BEDTIME [facility] Last Admin: 04/19/19 22:02 Dose: 0.25 mg Sodium Chloride (Saline Flush) 10 ml FLUSH ASDIRECTED PRN PRN Reason: Keep Vein Open Last Admin: 04/19/19 23:58 Dose: 10 ml Vancomycin HCl (Pharmacy To Dose - Vancomycin) 1 dose .XX ASDIRECTED [facility] Discontinued Medications Acetaminophen (Tylenol) 650 mg PO NOW ONE Stop: 04/18/19 08:58 Last Admin: 04/18/19 09:19 Dose: 650 mg Diphenhydramine HCl (Benadryl) 25 mg IVPUSH ONETIME ONE Stop: 04/18/19 09:09 Last Admin: 04/18/19 09:30 Dose: 25 mg Gabapentin (Neurontin) 300 mg PO TID [facility] Last Admin: 04/19/19 09:13 Dose: 300 mg Sodium Chloride (Normal Saline) 1,000 mls @ 999 mls/hr IV .BOLUS ONE Stop: 04/18/19 09:57 Last Infusion: 04/18/19 10:19 Dose: Infused Vancomycin HCl 1.5 gm/ Premix 300 mls @ 200 mls/hr IV ONETIME ONE Stop: 04/18/19 11:29 Last Admin: 04/18/19 10:19 Dose: 200 mls/hr Vancomycin HCl 1.5 gm/ Premix 300 mls @ 200 mls/hr IV Q8H [facility] Last Admin: 04/19/19 10:30 Dose: Not Given Magnesium Sulfate 2 gm/ Premix 50 mls @ 25 mls/hr IV ONETIME ONE Stop: 04/19/19 13:09 Last Admin: 04/19/19 13:36 Dose: 25 mls/hr Insulin Human Lispro (Humalog) 30 unit SUBCUT TIDMEALS [facility] Last Admin: 04/18/19 17:46 Dose: Not Given Insulin Human Lispro (Humalog) 10 unit SUBCUT BIDMEALS [facility] Last Admin: 04/18/19 18:14 Dose: Not Given Non-Formulary Medication (Cyclophosphamide [Cyclophosphamide]) 250 mg PO DAILY [facility] Last Admin: 04/19/19 13:07 Dose: Not Given Ondansetron HCl (Zofran) 4 mg IV ONETIME ONE Stop: 04/18/19 08:58 Last Admin: 04/18/19 09:20 Dose: 4 mg
[2019-04-20 11:47] VITALS: BP 127/79
== END 2019-04-20 11:40 | disposition home or self-care (01) | DRG 871 ==
LOC: DL.ED 08:11 → EEVIPCON 11:29 → DL.MS 11:29
PROVIDERS: ADMIT Internal Medicine; ATTEND Internal Medicine
DX: R42 Dizziness and giddiness (principal); R11.10 Vomiting, unspecified; A41.9 Sepsis, unspecified organism; J15.9 Unspecified bacterial pneumonia; J18.9 Pneumonia, unspecified organism; M86.8X7 Other osteomyelitis, ankle and foot; Z79.52 Long term (current) use of systemic steroids; E11.22 Type 2 diabetes mellitus with diabetic chronic kidney disease; E78.5 Hyperlipidemia, unspecified; N18.3 Chronic kidney disease, stage 3 (moderate); I10 Essential (primary) hypertension; M79.7 Fibromyalgia; M06.9 Rheumatoid arthritis, unspecified; K21.9 Gastro-esophageal reflux disease without esophagitis; D89.9 Disorder involving the immune mechanism, unspecified; H91.90 Unspecified hearing loss, unspecified ear; M32.9 Systemic lupus erythematosus, unspecified; H54.7 Unspecified visual loss; I12.9 Hypertensive chronic kidney disease with stage 1 through stage 4 chronic kidney disease, or unspecified chronic kidney disease; E11.9 Type 2 diabetes mellitus without complications; Z96.1 Presence of intraocular lens; G47.30 Sleep apnea, unspecified; E61.1 Iron deficiency; M54.9 Dorsalgia, unspecified; G89.29 Other chronic pain; Z86.14 Personal history of Methicillin resistant Staphylococcus aureus infection; Z89.421 Acquired absence of other right toe(s); F41.9 Anxiety disorder, unspecified; F32.9 Major depressive disorder, single episode, unspecified; E66.9 Obesity, unspecified; E55.9 Vitamin D deficiency, unspecified; Z98.42 Cataract extraction status, left eye; Z98.41 Cataract extraction status, right eye; Z88.8 Allergy status to other drugs, medicaments and biological substances; Z79.4 Long term (current) use of insulin; Z79.899 Other long term (current) drug therapy; Z87.891 Personal history of nicotine dependence; Z68.39 Body mass index [BMI] 39.0-39.9, adult
CPT/HCPCS: 36415; 71045; 74176; 80053; 80305; 81001; 81025; 82009; 82150; 83605; 83690; 85025; 87040 ×2; 87081; 87430; 87804 ×2; 87899; A9270; J1200; J2405; J3370; J7030; 80048; 80202; 82962; 83735; 84100; 87641; 94010; 94640; 96361; 96365; 96375; 99284; 99285-25; J1644; J1815; J1815-GY; J2543; J3475; J7050; J7620-GY

== ENCOUNTER 2019-04-28 20:08 | Emergency (ER) | payer MEDICARE, MEDICAID ==
[2019-04-28 21:11] VITALS: BP 155/68; PULSE 106
[2019-04-28 21:43] LABS: ANION GAP 13.1; CHLORIDE,CL 102 mmol/L (101-111); SODIUM,NA 137 mmol/L (135-145)
[2019-04-28] MEDS ORDERED: Albuterol/Ipratropium 3.0-0.5 MG/3 ML Neb Soln NEB ONE (22:26)
--- NOTE | 2019-04-28 22:30 | EDM.PDOC ---
ED HPI GENERAL MEDICAL PROBLEM - General Chief Complaint: Respiratory Problem Stated Complaint: Can't breathe Time Seen by Provider: 04/28/19 21:10 Source of Information: Reports: Patient History Limitations: Reports: No Limitations - History of Present Illness INITIAL COMMENTS - FREE TEXT/NARRATIVE: ED ambulatory with c/o difficulty breathing. Reports was admitted last week with pneumonia and out the next day. Reports hx of pneumonia and sepsis with multiple readmission. States she was sent home to early and needed to be on IV abx longer because oral never works. Intermittent low grad fevers. Last neb at 4pm. Completed antibiotic on . Hx immun suppressed with RA medications, IDDM, Chronic kdney disease. Desire to be transferred to where all her "specialists are". Generalized Pain Score (Numeric/FACES): 7 - Related Data Allergies Allergy/AdvReac Type Severity Reaction Status Date / Time muslce relaxers AdvReac arms numb Uncoded 04/28/19 20:55 and anxiety Home Meds: Home Meds Pantoprazole [Pantoprazole Sodium] 40 mg PO DAILY 09/13/14 [History] rOPINIRole [Requip] 0.25 mg PO BEDTIME 08/13/15 [History] cycloSPORINE [Restasis] 1 drop EYEBOTH BID 04/14/16 [History] Bumetanide [Bumex] 1 mg PO BID 04/24/18 [History] Potassium Chloride [Klor-Con 10] 10 meq PO BID 04/24/18 [History] metFORMIN HCl [Metformin HCl] 1,000 mg PO BIDMEALS 04/24/18 [History] Cyclophosphamide 250 mg PO DAILY 10/31/18 [History] DULoxetine [Cymbalta] 60 mg PO DAILY 10/31/18 [History] Insulin Aspart [NovoLOG] 10 unit SQ TIDMEALS 10/31/18 [History] Insulin Glargine,Hum.Rec.Anlog [Basaglar Kwikpen U-100] 30 unit SQ BID 10/31/18 [History] Metoclopramide HCl 10 mg PO TID PRN 10/31/18 [History] Mirabegron [Myrbetriq] 25 mg PO DAILY 10/31/18 [History] Pregabalin [Lyrica] 150 mg PO BID 10/31/18 [History] oxyCODONE HCl/Acetaminophen [Percocet 7.5-325 mg Tablet] 1 tab PO TID PRN [History] predniSONE [Prednisone] 10 mg PO DAILY 10/31/18 [History] Alum Hydrox/Mag Hydrox/Simeth [Mag-Al Plus] 30 ml PO BID #30 cup 11/04/18 [Rx] Amoxicillin/Potassium Clav [Augmentin 875-125 Tablet] 1 each PO BID #10 tablet 04/20/19 [Rx] Benzonatate [Tessalon Perle] 100 mg PO TID PRN #30 capsule 04/20/19 [Rx] Past Medical History - Past Health History Medical/Surgical History: Denies Medical/Surgical History HEENT History: Reports: Cataract, Hard of Hearing, Impaired Vision, Other (See Below) Other HEENT History: wears glasses Cardiovascular History: Reports: Hypertension, SOB on Exertion Respiratory History: Reports: Bronchitis, Recurrent, Sleep Apnea, SOB Gastrointestinal History: Reports: Gastritis, Other (See Below) Other Gastrointestinal History: chronic stomach pains. ABCESS OF ABDOMEN Genitourinary History: Reports: Renal Disease, UTI, Recurrent, Other (See Below) Other Genitourinary History: RENAL ABSCESS PROFESSIONAL ARCHITECT History: Reports: , Other (See Below) Other PROFESSIONAL ARCHITECT History: 2 Musculoskeletal History: Reports: Amputation, Back Pain, Chronic, Fibromyalgia, RA, SLE, Other (See Below) Other Musculoskeletal History: Scoliosis of the spine w/ chronic back pain. OSTEOMELITIS OF RIGHT FOOT, healed 05/10/17 Neurological History: Reports: Other (See Below) Other Neuro History: SOMNOLENCE, DAYTIME, nerve damage to back and legs Psychiatric History: Reports: Anxiety, Depression, Eating Disorders Endocrine/Metabolic History: Reports: Diabetes, Type II, IDDM, Obesity/BMI 30+, Vitamin D Deficiency Hematologic History: Reports: Iron Deficiency, Other (See Below) Other Hematologic History: HX OF SEPSIS. HX OF MRSA INFECTION Immunologic History: Reports: Immunosuppression, Other (See Below) Other Immunologic History: RA and Lupus Oncologic (Cancer) History: Reports: None Dermatologic History: Reports: Cellulitis, Other (See Below) Other Dermatologic History: hx of mrsa. HX OF SKIN ULCERS OF FOOT, BILAT. DIABETIC SKIN ULCERS. CELLULITIS OF L ANTERIOR LOWER LEG. BIOPSY OF SKIN LESION - Infectious Disease History Infectious Disease History: Reports: Influenza, MRSA, Shingles Other Infectious Disease History: CELLULITIS - Past Surgical History Head Surgeries/Procedures: Reports: None HEENT Surgical History: Reports: Cataract Surgery Other HEENT Surgeries/Procedures: BILAT CATARACT EXTRACTION WITH LENS PLACEMENT Cardiovascular Surgical History: Reports: None Respiratory Surgical History: Reports: None GI Surgical History: Reports: None Other GI Surgeries/Procedures: pt states "to remove infection in my stomach". I & D OF ABDOMINAL ABSCESS Female Surgical History: Reports: Other (See Below) Other Female Surgeries/Procedures: cyst on her left kidney Endocrine Surgical History: Reports: None Neurological Surgical History: Reports: None Musculoskeletal Surgical History: Reports: Amputation, Other (See Below) Other Musculoskeletal Surgeries/Procedures:: right toe ampulation Oncologic Surgical History: Reports: None Dermatological Surgical History: Reports: Other (See Below) Social & Family History - Family History Family Medical History: Noncontributory HEENT: Reports: None Cardiac: Reports: None Respiratory: Reports: None GI: Reports: None : Reports: None OBGYN: Reports: None Musculoskeletal: Reports: RA Neurological: Reports: None Psychiatric: Reports: Depression Endocrine/Metabolic: Reports: Diabetes, type II Hematologic: Reports: None Immunologic: Reports: None Dermatologic: Reports: None Oncologic: Reports: None - Tobacco Use Smoking Status *Q: Unknown Ever Smoked Second Hand Smoke Exposure: Yes - Caffeine Use Caffeine Use: Reports: Coffee, Soda Other Caffeine Use: 16oz daily Caffeine Use Comment: 3/day - Recreational Drug Use Recreational Drug Use: No - Living Situation & Occupation Living situation: Reports: with Family ED ROS GENERAL - Review of Systems Review Of Systems: See Below Constitutional: Reports: Fever, Chills, Malaise HEENT: Reports: No Symptoms Respiratory: Reports: Shortness of Breath, Wheezing, Pleuritic Chest Pain, Cough Cardiovascular: Reports: No Symptoms Endocrine: Reports: High Glucose GI/Abdominal: Reports: Abdominal Pain (worse wiht coughing) : Reports: No Symptoms Musculoskeletal: Reports: Joint Pain Skin: Reports: No Symptoms Neurological: Reports: No Symptoms ED EXAM, GENERAL - Physical Exam Exam: See Below Exam Limited By: No Limitations General Appearance: Alert, Mild Distress, Obese Eye Exam: Bilateral Eye: EOMI Ears: Normal External Exam, Normal TMs Nose: Normal Inspection Throat/Mouth: Normal Inspection, Normal Voice Neck: Normal Inspection Respiratory/Chest: No Respiratory Distress, Decreased Breath Sounds, Rhonchi ( throughout greater left) Cardiovascular: Normal Peripheral Pulses, Regular Rate, Rhythm, No Edema GI/Abdominal: Normal Bowel Sounds, Soft Extremities: Normal Inspection Neurological: Alert, Oriented, Normal Cognition Psychiatric: Normal Affect, Normal Mood Skin Exam: Warm, Dry, Intact, Normal Color Course - Vital Signs Last Recorded V/S: Last Vital Signs Temp 100.4 F 04/28/19 21:04 Pulse 106 H 04/28/19 21:04 Resp 20 04/28/19 21:04 BP 155/68 H 04/28/19 21:04 Pulse Ox 99 04/28/19 21:04 - Orders/Labs/Meds Orders: Active Orders 24 hr Category Date Time Status RT Aerosol Therapy [RC] ASDIRECTED Care 04/28/19 22:27 Active CULTURE BLOOD [BC] Stat Lab 04/28/19 21:17 Received Labs: Laboratory Tests 04/28/19 04/28/19 04/28/19 Range/Units 21:17 21:17 21:17 WBC 9.4 (5.0-10.0) 10^3/uL RBC 3.18 L (4.2-5.4) 10^6/uL Hgb 11.1 L D (12.0-16.0) g/dL Hct 33.1 L (37.0-47.0) % MCV 104.1 H D (80-100) fL MCH 34.9 H (27.0-34.0) pg MCHC 33.5 (33.0-35.0) g/dL Plt Count 208 (150-450) 10^3/uL Neut % (Auto) 83.2 H (42.2-75.2) % Lymph % (Auto) 10.1 L (20.5-50.1) % Citrus % (Auto) 5.8 (2-8) % Eos % (Auto) 0.8 L (1.0-3.0) % Baso % (Auto) 0.1 (0.0-1.0) % Sodium 137 (135-145) mmol/L Potassium 4.1 (3.6-5.0) mmol/L Chloride 102 (101-111) mmol/L Carbon Dioxide 26.0 (21.0-31.0) mmol/L Anion Gap 13.1 BUN 17 (7-18) mg/dL Creatinine 1.3 (0.6-1.3) mg/dL Est Cr Clr Drug Dosing 53.70 mL/min Estimated GFR (MDRD) 44 BUN/Creatinine Ratio 13.07 Glucose 246 H (74-105) mg/dL Lactic Acid 1.8 (0.5-2.0) mmol/L Calcium 9.3 (8.4-10.2) mg/dl Total Bilirubin 0.7 (0.2-1.0) mg/dL AST 19 (10-42) IU/L ALT 17 (10-60) IU/L Alkaline Phosphatase 73 (42-121) IU/L Troponin I < 0.02 (0.00-0.02) ng/ml Total Protein 7.6 (6.7-8.2) g/dl Albumin 3.7 (3.2-5.5) g/dl Globulin 3.9 Albumin/Globulin Ratio 0.95 Meds: Medications Discontinued Medications Generic Name Dose Route Start Last Admin Trade Name Freq PRN Reason Stop Dose Admin Albuterol/Ipratropium 3 ml 04/28/19 22:26 04/28/19 22:39 Duoneb 3.0-0.5 Mg/3 Ml NEB 04/28/19 22:27 3 ml ONETIME ONE Administration Benzonatate 100 mg 04/28/19 23:25 04/28/19 23:35 Tessalon Perles PO 04/28/19 23:26 100 mg ONETIME ONE Administration Guaifenesin 100 mg 04/28/19 23:25 04/28/19 23:36 Robitussin PO 04/28/19 23:26 100 mg ONETIME ONE Administration Azithromycin 500 mg/ Sodium 250 mls @ 250 mls/hr 04/29/19 00:05 04/29/19 00: 21 Chloride IV 04/29/19 01:04 250 mls/hr ONETIME ONE Administration Oxycodone/Acetaminophen 1 tab 04/28/19 23:28 04/28/19 23:35 Percocet 325-5 Mg PO 04/28/19 23:29 1 tab ONETIME ONE Administration - Radiology Interpretation Free Text/Narrative:: CXR No acute process. - Re-Assessments/Exams Free Text/Narrative Re-Assessment/Exam: 04/29/19 04:32 Tx to [facility] Per Dr Yarbrough due multiple co morbidities. Dr Tk Zhang accepting. Tx via [facility]. 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 use: unspecified termite control servicer insulin use status Qualified Code(s): E11.65 - Type 2 diabetes mellitus with hyperglycemia Pneumonia Qualifiers: Pneumonia type: due to unspecified organism Laterality: left Lung location: lower lobe of lung Qualified Code(s): J18.9 - Pneumonia, unspecified organism - Discharge Information *PRESCRIPTION DRUG MONITORING PROGRAM REVIEWED*: No *COPY OF PRESCRIPTION DRUG MONITORING REPORT IN PATIENT MAURICIO: No Referrals: PCP,Unobtain [Primary Care Provider] - Forms: ED Department Discharge Sepsis Event Note - Evaluation Sepsis Screening Result: No Definite Risk - Focused Exam Vital Signs: Vital Signs Temp Pulse Resp BP Pulse Ox 04/28/19 21:04 100.4 F 106 H 20 155/68 H 99 Date Exam was Performed: 04/29/19 Time Exam was Performed: 04:35 - My Orders Last 24 Hours: My Active Orders 04/28/19 21:17 CULTURE BLOOD [BC] Stat 04/28/19 22:27 RT Aerosol Therapy [RC] ASDIRECTED - Assessment/Plan Last 24 Hours: My Active Orders 04/28/19 21:17 CULTURE BLOOD [BC] Stat 04/28/19 22:27 RT Aerosol Therapy [RC] ASDIRECTED
[2019-04-28] MEDS ORDERED: Benzonatate 100 MG Cap PO ONE (23:25)
[2019-04-28] MEDS ORDERED: guaiFENesin 100 MG/5 ML Soln 5 ML UD Cup PO ONE (23:25)
[2019-04-28] MEDS ORDERED: Acetaminophen/oxyCODONE 325-5 MG Tab PO ONE (23:28)
[2019-04-29] MEDS ORDERED: Azithromycin 500 MG in Sodium Chloride 0.9% 250 ML IV ONE (00:05)
== END 2019-04-29 00:30 ==
LOC: DL.ED 20:08
DX: J18.9 Pneumonia, unspecified organism (principal); E11.65 Type 2 diabetes mellitus with hyperglycemia; M06.9 Rheumatoid arthritis, unspecified; I10 Essential (primary) hypertension; F41.9 Anxiety disorder, unspecified; F32.9 Major depressive disorder, single episode, unspecified; E66.9 Obesity, unspecified; Z68.39 Body mass index [BMI] 39.0-39.9, adult; Z77.22 Contact with and (suspected) exposure to environmental tobacco smoke (acute) (chronic); Z88.8 Allergy status to other drugs, medicaments and biological substances; Z79.899 Other long term (current) drug therapy; Z79.4 Long term (current) use of insulin
CPT/HCPCS: 36415; 71046; 80053; 83605; 84484; 85025; 87040; 87804; 96374; 99285; A9270; J0456; J7050; 99284; J7620-GY

== ENCOUNTER 2019-08-01 23:46 | Emergency (ER) | payer MEDICARE, MEDICAID ==
[2019-08-02 00:32] VITALS: BP 152/77; PULSE 82
--- NOTE | 2019-08-02 00:46 | EDM.PDOC ---
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 h/o back problems and taking tramadol but nothing working. denies fever. Treatments RESEARCH SUBJECT: Reports: Acetaminophen Right Mid-Posterior Back Pain Score (Numeric/FACES): 6 - Related Data Allergies Allergy/AdvReac Type Severity Reaction Status Date / Time No Known Allergies Allergy Verified 08/02/19 00:45 Home Meds: Home Meds Pantoprazole [Pantoprazole Sodium] 40 mg PO DAILY 09/13/14 [History] rOPINIRole [Requip] 0.25 mg PO BEDTIME 08/13/15 [History] cycloSPORINE [Restasis] 1 drop EYEBOTH BID 04/14/16 [History] Bumetanide [Bumex] 1 mg PO BID 04/24/18 [History] Potassium Chloride [Klor-Con 10] 10 meq PO BID 04/24/18 [History] metFORMIN HCl [Metformin HCl] 1,000 mg PO BIDMEALS 04/24/18 [History] Cyclophosphamide 250 mg PO DAILY 10/31/18 [History] Insulin Aspart [NovoLOG] 10 unit SQ TIDMEALS 10/31/18 [History] Insulin Glargine,Hum.Rec.Anlog [Basaglar Kwikpen U-100] 30 unit SQ BID 10/31/18 [History] Metoclopramide HCl 10 mg PO TID PRN 10/31/18 [History] Mirabegron [Myrbetriq] 25 mg PO DAILY 10/31/18 [History] Pregabalin [Lyrica] 150 mg PO BID 10/31/18 [History] Alum Hydrox/Mag Hydrox/Simeth [Mag-Al Plus] 30 ml PO BID #30 cup 11/04/18 [Rx] Past Medical History - Past Health History Medical/Surgical History: Denies Medical/Surgical History HEENT History: Reports: Cataract, Hard of Hearing, Impaired Vision, Other (See Below) Other HEENT History: wears glasses Cardiovascular History: Reports: Hypertension, SOB on Exertion Respiratory History: Reports: Bronchitis, Recurrent, Sleep Apnea, SOB Gastrointestinal History: Reports: Gastritis, Other (See Below) Other Gastrointestinal History: chronic stomach pains. 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 OSTEOMELITIS OF RIGHT FOOT, healed 05/10/17 Neurological History: Reports: Other (See Below) Other Neuro History: SOMNOLENCE, DAYTIME, nerve damage to back and legs Psychiatric History: Reports: Anxiety, Depression, Eating Disorders Endocrine/Metabolic History: Reports: Diabetes, Type II, IDDM, Obesity/BMI 30+, Vitamin D Deficiency Hematologic History: Reports: Iron Deficiency, Other (See Below) Other Hematologic History: HX OF SEPSIS. HX OF MRSA INFECTION Immunologic History: Reports: Immunosuppression, Other (See Below) Other Immunologic History: RA and Lupus Oncologic (Cancer) History: Reports: None Dermatologic History: Reports: Cellulitis, Other (See Below) Other Dermatologic History: hx of mrsa. HX OF SKIN ULCERS OF FOOT, BILAT. DIABETIC SKIN ULCERS. CELLULITIS OF L ANTERIOR LOWER LEG. BIOPSY OF SKIN LESION - Infectious Disease History Infectious Disease History: Reports: Influenza, MRSA, Shingles Other Infectious Disease History: CELLULITIS - Past Surgical History Head Surgeries/Procedures: Reports: None HEENT Surgical History: Reports: Cataract Surgery Other HEENT Surgeries/Procedures: BILAT CATARACT EXTRACTION WITH LENS PLACEMENT Cardiovascular Surgical History: Reports: None Respiratory Surgical History: Reports: None GI Surgical History: Reports: None Other GI Surgeries/Procedures: pt states "to remove infection in my stomach". I & D OF ABDOMINAL ABSCESS Female Surgical History: Reports: Other (See Below) Other Female Surgeries/Procedures: cyst on her left kidney Endocrine Surgical History: Reports: None Neurological Surgical History: Reports: None Musculoskeletal Surgical History: Reports: Amputation, Other (See Below) Other Musculoskeletal Surgeries/Procedures:: right toe ampulation Oncologic Surgical History: Reports: None Dermatological Surgical History: Reports: Other (See Below) Social & Family History - Family History Family Medical History: Noncontributory HEENT: Reports: None Cardiac: Reports: None Respiratory: Reports: None GI: Reports: None : Reports: None OBGYN: Reports: None Musculoskeletal: Reports: RA Neurological: Reports: None Psychiatric: Reports: Depression Endocrine/Metabolic: Reports: Diabetes, type II Hematologic: Reports: None Immunologic: Reports: None Dermatologic: Reports: None Oncologic: Reports: None - Tobacco Use Smoking Status *Q: Unknown Ever Smoked Second Hand Smoke Exposure: Yes - Caffeine Use Caffeine Use: Reports: Coffee Other Caffeine Use: 16oz daily Caffeine Use Comment: 3/day - Recreational Drug Use Recreational Drug Use: No - Living Situation & Occupation Living situation: Reports: with Family ED ROS GENERAL - Review of Systems Review Of Systems: Comprehensive ROS is negative, except as noted in HPI. ED EXAM, GENERAL - Physical Exam Exam: See Below Exam Limited By: No Limitations General Appearance: Alert, WD/WN, Mild Distress, Other (upset) Ears: Hearing Grossly Normal Throat/Mouth: Normal Voice, No Airway Compromise, Inflammation Head: Atraumatic Neck: Non-Tender, Full Range of Motion Respiratory/Chest: No Accessory Muscle Use, Rhonchi. No: Decreased Breath Sounds Cardiovascular: Regular Rate, Rhythm GI/Abdominal: Soft, Non-Tender Neurological: Alert, Oriented, Normal Cognition, Normal Gait, No Motor/Sensory Deficits Psychiatric: Flat Affect Skin Exam: Warm, Dry, Normal Color Lymphatic: No Adenopathy Course - Vital Signs Last Recorded V/S: Last Vital Signs Temp 35.8 C L 08/02/19 00:29 Pulse 82 08/02/19 00:29 Resp 18 08/02/19 00:29 BP 152/77 H 08/02/19 00:29 Pulse Ox 100 08/02/19 00:29 - Orders/Labs/Meds Orders: Active Orders 24 hr Category Date Time Status Chest 1V Frontal [CR] Urgent Exams 08/02/19 00:43 Taken CULTURE STREP A CONFIRMATION [RM] Stat Lab 08/02/19 00:41 Results STREP SCRN A RAPID W CULT CONF [RM] Stat Lab 08/02/19 00:41 Results - Re-Assessments/Exams Free Text/Narrative Re-Assessment/Exam: 08/02/19 01:53 results discussed with pt. Departure - Departure Time of Disposition: 01:53 Disposition: Home, Self-Care 01 Condition: Good Clinical Impression: Tonsillopharyngitis, Pleurisy - Discharge Information Forms: ED Department Discharge Additional Instructions: 1) rest and avoid excess activity 2) drink lots of liquids 3) follow up at clinic Sepsis Event Note - Evaluation Sepsis Screening Result: No Definite Risk - Focused Exam Vital Signs: Vital Signs Temp Pulse Resp BP Pulse Ox 08/02/19 00:29 35.8 C L 82 18 152/77 H 100 Date Exam was Performed: 08/02/19 Time Exam was Performed: 01:53 - My Orders Last 24 Hours: My Active Orders 08/02/19 00:41 CULTURE STREP A CONFIRMATION [RM] Stat STREP SCRN A RAPID W CULT CONF [RM] Stat 08/02/19 00:43 Chest 1V Frontal [CR] Urgent - Assessment/Plan Last 24 Hours: My Active Orders 08/02/19 00:41 CULTURE STREP A CONFIRMATION [RM] Stat STREP SCRN A RAPID W CULT CONF [RM] Stat 08/02/19 00:43 Chest 1V Frontal [CR] Urgent
== END 2019-08-02 01:53 | disposition home or self-care (01) ==
LOC: DL.ED 23:46
DX: J03.90 Acute tonsillitis, unspecified (principal); R09.1 Pleurisy; I10 Essential (primary) hypertension; M41.9 Scoliosis, unspecified; F41.9 Anxiety disorder, unspecified; F32.9 Major depressive disorder, single episode, unspecified; E11.9 Type 2 diabetes mellitus without complications; E66.9 Obesity, unspecified; Z68.38 Body mass index [BMI] 38.0-38.9, adult; Z79.4 Long term (current) use of insulin; Z79.899 Other long term (current) drug therapy
CPT/HCPCS: 71045; 87081; 87430; 99285-25

== ENCOUNTER 2019-12-01 00:18 | Emergency (ER) | payer MEDICARE, MEDICAID ==
[2019-12-01 00:26] VITALS: BP 156/81; PULSE 103
[2019-12-01] MEDS ORDERED: Ketorolac 30 MG/ML SDV IM ONE (00:44)
--- NOTE | 2019-12-01 00:49 | EDM.PDOC ---
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 also tramadol gives her headaches. Lower Back Pain Score (Numeric/FACES): 9 - Related Data Allergies Allergy/AdvReac Type Severity Reaction Status Date / Time No Known Allergies Allergy Verified 12/01/19 00:29 Home Meds: Home Meds Pantoprazole [Pantoprazole Sodium] 40 mg PO DAILY 09/13/14 [History] rOPINIRole [Requip] 0.25 mg PO BEDTIME 08/13/15 [History] cycloSPORINE [Restasis] 1 drop EYEBOTH BID 04/14/16 [History] Bumetanide [Bumex] 1 mg PO BID 04/24/18 [History] metFORMIN HCl [Metformin HCl] 1,000 mg PO BIDMEALS 04/24/18 [History] Insulin Aspart [NovoLOG] 10 unit SQ TIDMEALS 10/31/18 [History] Insulin Glargine,Hum.Rec.Anlog [Basaglar Kwikpen U-100] 30 unit SQ BID 10/31/18 [History] Mirabegron [Myrbetriq] 25 mg PO DAILY 10/31/18 [History] Pregabalin [Lyrica] 150 mg PO BID 10/31/18 [History] Alum Hydrox/Mag Hydrox/Simeth [Mag-Al Plus] 30 ml PO BID #30 cup 11/04/18 [Rx] Rosuvastatin Calcium 20 mg PO DAILY 12/01/19 [History] predniSONE 10 mg PO DAILY 12/01/19 [History] Past Medical History - Past Health History Medical/Surgical History: Denies Medical/Surgical History HEENT History: Reports: Cataract, Hard of Hearing, Impaired Vision, Other (See Below) Other HEENT History: wears glasses Cardiovascular History: Reports: Hypertension, SOB on Exertion Respiratory History: Reports: Bronchitis, Recurrent, Sleep Apnea, SOB Gastrointestinal History: Reports: Gastritis, Other (See Below) Other Gastrointestinal History: chronic stomach pains. 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 OSTEOMELITIS OF RIGHT FOOT, healed 05/10/17 Neurological History: Reports: Other (See Below) Other Neuro History: SOMNOLENCE, DAYTIME, nerve damage to back and legs Psychiatric History: Reports: Anxiety, Depression, Eating Disorders Endocrine/Metabolic History: Reports: Diabetes, Type II, IDDM, Obesity/BMI 30+, Vitamin D Deficiency Hematologic History: Reports: Iron Deficiency, Other (See Below) Other Hematologic History: HX OF SEPSIS. HX OF MRSA INFECTION Immunologic History: Reports: Immunosuppression, Other (See Below) Other Immunologic History: RA and Lupus Oncologic (Cancer) History: Reports: None Dermatologic History: Reports: Cellulitis, Other (See Below) Other Dermatologic History: hx of mrsa. HX OF SKIN ULCERS OF FOOT, BILAT. DIABETIC SKIN ULCERS. CELLULITIS OF L ANTERIOR LOWER LEG. BIOPSY OF SKIN LESION - Infectious Disease History Infectious Disease History: Reports: Influenza, MRSA, Shingles Other Infectious Disease History: CELLULITIS - Past Surgical History Head Surgeries/Procedures: Reports: None HEENT Surgical History: Reports: Cataract Surgery Other HEENT Surgeries/Procedures: BILAT CATARACT EXTRACTION WITH LENS PLACEMENT Cardiovascular Surgical History: Reports: None Respiratory Surgical History: Reports: None GI Surgical History: Reports: None Other GI Surgeries/Procedures: pt states "to remove infection in my stomach". I & D OF ABDOMINAL ABSCESS Female Surgical History: Reports: Other (See Below) Other Female Surgeries/Procedures: cyst on her left kidney Endocrine Surgical History: Reports: None Neurological Surgical History: Reports: None Musculoskeletal Surgical History: Reports: Amputation, Other (See Below) Other Musculoskeletal Surgeries/Procedures:: right toe ampulation Oncologic Surgical History: Reports: None Dermatological Surgical History: Reports: Other (See Below) Social & Family History - Family History Family Medical History: Noncontributory HEENT: Reports: None Cardiac: Reports: None Respiratory: Reports: None GI: Reports: None : Reports: None OBGYN: Reports: None Musculoskeletal: Reports: RA Neurological: Reports: None Psychiatric: Reports: Depression Endocrine/Metabolic: Reports: Diabetes, type II Hematologic: Reports: None Immunologic: Reports: None Dermatologic: Reports: None Oncologic: Reports: None - Tobacco Use Smoking Status *Q: Never Smoker Second Hand Smoke Exposure: No - Caffeine Use Caffeine Use: Reports: Coffee Other Caffeine Use: 16oz daily Caffeine Use Comment: 3/day - Recreational Drug Use Recreational Drug Use: No - Living Situation & Occupation Living situation: Reports: with Family ED ROS GENERAL - Review of Systems Review Of Systems: Comprehensive ROS is negative, except as noted in HPI. ED EXAM, GENERAL - Physical Exam Exam: See Below Exam Limited By: No Limitations General Appearance: Alert, WD/WN, Mild Distress, Other (tearful) Ears: Hearing Grossly Normal Throat/Mouth: Normal Voice, No Airway Compromise Head: Atraumatic Neck: Non-Tender, Full Range of Motion Respiratory/Chest: No Respiratory Distress Cardiovascular: Regular Rate, Rhythm GI/Abdominal: Soft, Non-Tender (Female) Exam: Deferred Rectal (Female) Exam: Deferred Back Exam: Muscle Spasm, Paraspinal Tenderness, Other ([id number]-S1) Neurological: Alert, Oriented, Normal Cognition, Normal Gait, No Motor/Sensory Deficits Psychiatric: Tearful Skin Exam: Warm, Dry, Normal Color Lymphatic: No Adenopathy Course - Vital Signs Last Recorded V/S: Last Vital Signs Temp 36.6 C 12/01/19 00:22 Pulse 103 H 12/01/19 00:22 Resp 18 12/01/19 00:22 BP 156/81 H 12/01/19 00:22 Pulse Ox 97 12/01/19 00:22 - Orders/Labs/Meds Meds: Medications Discontinued Medications Generic Name Dose Route Start Last Admin Trade Name Bart PRN Reason Stop Dose Admin Ketorolac Tromethamine 30 mg 12/01/19 00:44 12/01/19 00:50 Toradol IM 12/01/19 00:45 30 mg ONETIME ONE Administration Departure - Departure Time of Disposition: 00:47 Disposition: Home, Self-Care 01 Condition: Good Clinical Impression: Rheumatoid arthritis flare - Discharge Information Instructions: Arthritis, [id number] Forms: ED Department Discharge Additional Instructions: 1) try hot bath or shower 2) follow up at clinic Sepsis Event Note (ED) - Evaluation Sepsis Screening Result: No Definite Risk - Focused Exam Vital Signs: Vital Signs Temp Pulse Resp BP Pulse Ox 12/01/19 00:22 36.6 C 103 H 18 156/81 H 97
== END 2019-12-01 01:08 | disposition home or self-care (01) ==
LOC: DL.ED 00:18
DX: M06.9 Rheumatoid arthritis, unspecified (principal); E11.9 Type 2 diabetes mellitus without complications; F41.9 Anxiety disorder, unspecified; E66.9 Obesity, unspecified; F32.9 Major depressive disorder, single episode, unspecified; I10 Essential (primary) hypertension; Z79.4 Long term (current) use of insulin; Z79.899 Other long term (current) drug therapy; Z68.41 Body mass index [BMI] 40.0-44.9, adult
CPT/HCPCS: 96372; 99283; J1885

== ENCOUNTER 2020-02-02 01:15 | Emergency (ER) | payer MEDICARE, MEDICAID ==
--- NOTE | 2020-02-02 01:19 | EDM.PDOC ---
ED HPI GENERAL MEDICAL PROBLEM - General Chief Complaint: Respiratory Problem Stated Complaint: AMBULANCE Time Seen by Provider: 02/02/20 01:19 Source of Information: Reports: Patient, EMS History Limitations: Reports: No Limitations - History of Present Illness INITIAL COMMENTS - FREE TEXT/NARRATIVE: positive on 01-28 but no Sx till tonight with CP & SOB and right arm and legs feel tingling and weak but can move them. all this started at 9pm and not getting better. Generalized Pain Score (Numeric/FACES): 8 - Related Data Allergies Allergy/AdvReac Type Severity Reaction Status Date / Time No Known Allergies Allergy Verified 02/02/20 01:45 Home Meds: Home Meds Pantoprazole [Pantoprazole Sodium] 40 mg PO DAILY 09/13/14 [History] rOPINIRole [Requip] 0.25 mg PO BEDTIME 08/13/15 [History] cycloSPORINE [Restasis] 1 drop EYEBOTH BID 04/14/16 [History] Bumetanide [Bumex] 1 mg PO BID 04/24/18 [History] metFORMIN HCl [Metformin HCl] 1,000 mg PO BIDMEALS 04/24/18 [History] Insulin Aspart [NovoLOG] 10 unit SQ TIDMEALS 10/31/18 [History] Insulin Glargine,Hum.Rec.Anlog [Basaglar Kwikpen U-100] 30 unit SQ BID 10/31/18 [History] Mirabegron [Myrbetriq] 25 mg PO DAILY 10/31/18 [History] Pregabalin [Lyrica] 150 mg PO BID 10/31/18 [History] Alum Hydrox/Mag Hydrox/Simeth [Mag-Al Plus] 30 ml PO BID #30 cup 11/04/18 [Rx] Rosuvastatin Calcium 20 mg PO DAILY 12/01/19 [History] predniSONE 10 mg PO DAILY 12/01/19 [History] Past Medical History - Past Health History Medical/Surgical History: Denies Medical/Surgical History HEENT History: Reports: Cataract, Hard of Hearing, Impaired Vision, Other (See Below) Other HEENT History: wears glasses Cardiovascular History: Reports: Hypertension, SOB on Exertion Respiratory History: Reports: Bronchitis, Recurrent, Sleep Apnea, SOB Gastrointestinal History: Reports: Gastritis, Other (See Below) Other Gastrointestinal History: chronic stomach pains. 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 OSTEOMELITIS OF RIGHT FOOT, healed 05/10/17 Neurological History: Reports: Other (See Below) Other Neuro History: SOMNOLENCE, DAYTIME, nerve damage to back and legs Psychiatric History: Reports: Anxiety, Depression, Eating Disorders Endocrine/Metabolic History: Reports: Diabetes, Type II, IDDM, Obesity/BMI 30+, Vitamin D Deficiency Hematologic History: Reports: Iron Deficiency, Other (See Below) Other Hematologic History: HX OF SEPSIS. HX OF MRSA INFECTION Immunologic History: Reports: Immunosuppression, Other (See Below) Other Immunologic History: RA and Lupus Oncologic (Cancer) History: Reports: None Dermatologic History: Reports: Cellulitis, Other (See Below) Other Dermatologic History: hx of mrsa. HX OF SKIN ULCERS OF FOOT, BILAT. DIABETIC SKIN ULCERS. CELLULITIS OF L ANTERIOR LOWER LEG. BIOPSY OF SKIN LESION - Infectious Disease History Infectious Disease History: Reports: Influenza, MRSA, Shingles Other Infectious Disease History: CELLULITIS - Past Surgical History Head Surgeries/Procedures: Reports: None HEENT Surgical History: Reports: Cataract Surgery Other HEENT Surgeries/Procedures: BILAT CATARACT EXTRACTION WITH LENS PLACEMENT Cardiovascular Surgical History: Reports: None Respiratory Surgical History: Reports: None GI Surgical History: Reports: None Other GI Surgeries/Procedures: pt states "to remove infection in my stomach". I & D OF ABDOMINAL ABSCESS Female Surgical History: Reports: Other (See Below) Other Female Surgeries/Procedures: cyst on her left kidney Endocrine Surgical History: Reports: None Neurological Surgical History: Reports: None Musculoskeletal Surgical History: Reports: Amputation, Other (See Below) Other Musculoskeletal Surgeries/Procedures:: right toe ampulation Oncologic Surgical History: Reports: None Dermatological Surgical History: Reports: Other (See Below) Social & Family History - Family History Family Medical History: No Pertinent Family History HEENT: Reports: None Cardiac: Reports: None Respiratory: Reports: None GI: Reports: None : Reports: None OBGYN: Reports: None Musculoskeletal: Reports: RA Neurological: Reports: None Psychiatric: Reports: Depression Endocrine/Metabolic: Reports: Diabetes, type II Hematologic: Reports: None Immunologic: Reports: None Dermatologic: Reports: None Oncologic: Reports: None - Caffeine Use Caffeine Use: Reports: None Other Caffeine Use: 16oz daily Caffeine Use Comment: 3/day - Living Situation & Occupation Living situation: Reports: with Family ED ROS GENERAL - Review of Systems Review Of Systems: Comprehensive ROS is negative, except as noted in HPI. ED EXAM, GENERAL - Physical Exam Exam: See Below Exam Limited By: No Limitations General Appearance: Alert, WD/WN Eye Exam: Bilateral Eye: PERRL (pupils ess ER @ 4mm) Ears: Hearing Grossly Normal Throat/Mouth: Normal Voice, No Airway Compromise Head: Atraumatic Neck: Non-Tender, Full Range of Motion Respiratory/Chest: No Respiratory Distress, No Accessory Muscle Use, Rhonchi. No: Decreased Breath Sounds Cardiovascular: Regular Rate, Rhythm GI/Abdominal: Soft, Non-Tender (Female) Exam: Deferred Rectal (Female) Exam: Deferred Extremities: Other (weakness right side) Neurological: Alert, Oriented, Normal Cognition Psychiatric: Other (upset) Skin Exam: Warm, Dry, Normal Color Lymphatic: No Adenopathy Course - Vital Signs Last Recorded V/S: Last Vital Signs Temp 37.1 C 02/02/20 01:37 Pulse 89 02/02/20 01:37 Resp 17 02/02/20 01:37 BP 154/89 H 02/02/20 01:37 Pulse Ox 97 02/02/20 01:37 - Orders/Labs/Meds Orders: Active Orders 24 hr Category Date Time Status Blood Glucose Check, Bedside [RC] ONETIME Care 02/02/20 01:31 Active CULTURE BLOOD [BC] Stat Lab 02/02/20 01:31 Results Dextrose 50% in Water Med 02/02/20 01:36 Active 50 ml IV ASDIRECTED PRN Glucagon,Human Recombinant [GlucaGen] Med 02/02/20 01:36 Active 1 mg IM ASDIRECTED PRN Medication Orders Dextrose/Water (Dextrose 50% In Water) 50 ml IV ASDIRECTED PRN PRN Reason: Hypoglycemia Glucagon (Glucagen) 1 mg IM ASDIRECTED PRN PRN Reason: Hypoglycemia Labs: Laboratory Tests 11/22/20 11/22/20 11/22/20 Range/Units 01:31 01:31 01:31 WBC 4.6 L (5.0-10.0) 10^3/uL RBC 4.11 L (4.2-5.4) 10^6/uL Hgb 12.5 (12.0-16.0) g/dL Hct 37.0 (37.0-47.0) % MCV 90.0 D (80-100) fL MCH 30.4 (27.0-34.0) pg MCHC 33.8 (33.0-35.0) g/dL Plt Count 211 (150-450) 10^3/uL Neut % (Auto) 79.8 H (42.2-75.2) % Lymph % (Auto) 12.7 L (20.5-50.1) % [place] % (Auto) 7.1 (2-8) % Eos % (Auto) 0.2 L (1.0-3.0) % Baso % (Auto) 0.2 (0.0-1.0) % D-Dimer, Quantitative < 100 (0-400) ng/mL Sodium 132 L (136-145) mmol/L Potassium 3.6 (3.5-5.1) mmol/L Chloride 96 L (98-107) mmol/L Carbon Dioxide 21 (21-32) mmol/L Anion Gap 18.6 H (7-13) mEq/L BUN 27 H (7-18) mg/dL Creatinine 1.82 H (0.55-1.02) mg/dL Est Cr Clr Drug Dosing 39.38 mL/min Estimated GFR (MDRD) 30 BUN/Creatinine Ratio 14.8 (No establ ref range) Glucose 409 H* (74-99) mg/dL POC Glucose (70-105) mg/dl Lactic Acid (0.4-2.0) mmol/L Calcium 8.1 L (8.5-10.1) mg/dL Total Bilirubin 0.3 (0.2-1.0) mg/dL AST 20 (15-37) U/L ALT 38 (14-59) U/L Alkaline Phosphatase 144 H (46-116) U/L Troponin I < 0.017 (0.000-0.056) ng/mL Total Protein 6.7 (6.4-8.2) g/dL Albumin 3.1 L (3.4-5.0) g/dL Globulin 3.6 Albumin/Globulin Ratio 0.86 02/02/20 02/02/20 02/02/20 Range/Units 01:31 01:31 03:03 WBC (5.0-10.0) 10^3/uL RBC (4.2-5.4) 10^6/uL Hgb (12.0-16.0) g/dL Hct (37.0-47.0) % MCV (80-100) fL MCH (27.0-34.0) pg MCHC (33.0-35.0) g/dL Plt Count (150-450) 10^3/uL Neut % (Auto) (42.2-75.2) % Lymph % (Auto) (20.5-50.1) % [place] % (Auto) (2-8) % Eos % (Auto) (1.0-3.0) % Baso % (Auto) (0.0-1.0) % D-Dimer, Quantitative (0-400) ng/mL Sodium (136-145) mmol/L Potassium (3.5-5.1) mmol/L Chloride (98-107) mmol/L Carbon Dioxide (21-32) mmol/L Anion Gap (7-13) mEq/L BUN (7-18) mg/dL Creatinine (0.55-1.02) mg/dL Est Cr Clr Drug Dosing mL/min Estimated GFR (MDRD) BUN/Creatinine Ratio (No establ ref range) Glucose (74-99) mg/dL POC Glucose 435 H* 233 H (70-105) mg/dl Lactic Acid 3.0 H* (0.4-2.0) mmol/L Calcium (8.5-10.1) mg/dL Total Bilirubin (0.2-1.0) mg/dL AST (15-37) U/L ALT (14-59) U/L Alkaline Phosphatase (46-116) U/L Troponin I (0.000-0.056) ng/mL Total Protein (6.4-8.2) g/dL Albumin (3.4-5.0) g/dL Globulin Albumin/Globulin Ratio Meds: Medications Generic Name Dose Route Start Last Admin Trade Name Freq PRN Reason Stop Dose Admin Dextrose/Water 50 ml 02/02/20 01:36 Dextrose 50% In Water IV ASDIRECTED PRN Hypoglycemia Glucagon 1 mg 02/02/20 01:36 Glucagen IM ASDIRECTED PRN Hypoglycemia Discontinued Medications Generic Name Dose Route Start Last Admin Trade Name Freq PRN Reason Stop Dose Admin Sodium Chloride 1,000 mls @ 999 mls/hr 02/02/20 01:36 02/02/20 02:00 Normal Saline IV 02/02/20 02:36 999 mls/hr .BOLUS ONE Administration Insulin Human Regular 5 unit 02/02/20 01:36 02/02/20 01:57 Humulin R IV 02/02/20 01:37 5 unit ONETIME ONE Administration Ketorolac Tromethamine 30 mg 02/02/20 03:09 02/02/20 03:22 Toradol IVPUSH 02/02/20 03:10 30 mg ONETIME ONE Administration Metoclopramide HCl 10 mg 02/02/20 03:11 02/02/20 03:20 Reglan IVPUSH 02/02/20 03:12 10 mg ONETIME ONE Administration - Re-Assessments/Exams Free Text/Narrative Re-Assessment/Exam: 02/02/20 03:[address] Lang @ [facility] who kindly accepted pt. 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 - Discharge Information Forms: Interfacility Transfer [employer] Sepsis Event Note (ED) - Focused Exam Vital Signs: Vital Signs Temp Pulse Resp BP Pulse Ox 02/02/20 01:37 37.1 C 89 17 154/89 H 97 - My Orders Last 24 Hours: My Active Orders 02/02/20 01:31 Blood Glucose Check, Bedside [RC] ONETIME CULTURE BLOOD [BC] Stat 02/02/20 01:36 Dextrose 50% in Water 50 ml IV ASDIRECTED PRN Glucagon,Human Recombinant [GlucaGen] 1 mg IM ASDIRECTED PRN - Assessment/Plan Last 24 Hours: My Active Orders 02/02/20 01:31 Blood Glucose Check, Bedside [RC] ONETIME CULTURE BLOOD [BC] Stat 02/02/20 01:36 Dextrose 50% in Water 50 ml IV ASDIRECTED PRN Glucagon,Human Recombinant [GlucaGen] 1 mg IM ASDIRECTED PRN
[2020-02-02] MEDS ORDERED: 50% Dextrose in Water 50 ML Syringe IV PRN (01:36)
[2020-02-02] MEDS ORDERED: Sodium Chloride 0.9% 1,000 ML IV ONE (01:36)
[2020-02-02] MEDS ORDERED: Glucagon,Human Recombinant 1 MG Vial IM PRN (01:36)
[2020-02-02] MEDS ORDERED: Insulin Regular, Human 100 Units/ML 3 ML Vial IV ONE (01:36)
[2020-02-02 01:44] VITALS: BP 154/89; PULSE 89
--- NOTE | 2020-02-02 02:06 | CT ---
PROCEDURE INFORMATION: Exam: CT Chest Without Contrast; Diagnostic Exam date and time: 02/02/2020 1:39 AM Age: 44 years old Clinical indication: Shortness of breath; Patient HX: Unable to raise arms; Additional info: Covid positive SOB chest pain TECHNIQUE: Imaging protocol: Diagnostic computed tomography of the chest without contrast. Radiation optimization: All CT scans at this facility use at least one of these dose optimization techniques: automated exposure control; mA and/or kV adjustment per patient size (includes targeted exams where dose is matched to clinical indication); or iterative reconstruction. COMPARISON: CR Chest 1V Frontal 08/02/2019 1:13 AM FINDINGS: Lungs: Acute bilateral upper and lower lung ground-glass infiltrates consistent with acute bilateral viral pneumonia. Pleural space: Unremarkable. No pneumothorax. No pleural effusion. Heart: Unremarkable. No cardiomegaly. No pericardial effusion. Aorta: Unremarkable. No aortic aneurysm. Lymph nodes: Unremarkable. No enlarged lymph nodes. Bones/joints: Unremarkable. No acute fracture. Soft tissues: Unremarkable. IMPRESSION: Acute bilateral upper and lower lung ground-glass infiltrates consistent with acute bilateral viral pneumonia.
--- NOTE | 2020-02-02 02:12 | CT ---
PROCEDURE INFORMATION: Exam: CT Head Without Contrast Exam date and time: 02/02/2020 1:39 AM Age: 44 years old Clinical indication: Other: Headache; Additional info: Right side weakness TECHNIQUE: Imaging protocol: Computed tomography of the head without contrast. Radiation optimization: All CT scans at this facility use at least one of these dose optimization techniques: automated exposure control; mA and/or kV adjustment per patient size (includes targeted exams where dose is matched to clinical indication); or iterative reconstruction. COMPARISON: No relevant prior studies available. FINDINGS: Brain: Transcortical low attenuation involving the left occipital lobe suggestive of acute left occipital lobe infarct. There is no hemorrhage. CT angiography is suggested of the head and neck. Cerebral ventricles: No ventriculomegaly. Bones/joints: Unremarkable. No acute fracture. Paranasal sinuses: Visualized sinuses are unremarkable. No fluid levels. Mastoid air cells: Visualized mastoid air cells are well aerated. Soft tissues: Unremarkable. IMPRESSION: Transcortical low attenuation of the left occipital lobe suggestive of acute left occipital lobe infarct.. No evidence for hemorrhage.
[2020-02-02 02:15] LABS: ANION GAP 18.6 mEq/L (7-13); CHLORIDE,CL 96 mmol/L (98-107); SODIUM,NA 132 mmol/L (136-145)
[2020-02-02] MEDS ORDERED: Ketorolac 30 MG/ML SDV IVPUSH ONE (03:09)
[2020-02-02] MEDS ORDERED: Metoclopramide 10 MG/2 ML SDV IVPUSH ONE (03:11)
== END 2020-02-02 04:56 ==
LOC: DL.ED 01:15
DX: U07.1 COVID-19 (principal); J12.89 Other viral pneumonia; I63.9 Cerebral infarction, unspecified; I10 Essential (primary) hypertension; E11.9 Type 2 diabetes mellitus without complications; E66.9 Obesity, unspecified; Z79.4 Long term (current) use of insulin; Z79.899 Other long term (current) drug therapy
CPT/HCPCS: 36415; 70450; 71250; 80053; 82962; 83605; 84484; 85025; 85379; 87040; 96374; 96375; 99285; J1815; J1885; J2765; J7030

== ENCOUNTER 2020-02-06 19:55 | Emergency (ER) | payer MEDICARE, MEDICAID ==
[2020-02-06 20:29] VITALS: BP 112/68; PULSE 112
[2020-02-06] MEDS ORDERED: Dexamethasone 4 MG/ML SDV IVPUSH ONE (20:33)
[2020-02-06] MEDS ORDERED: Ondansetron 4 MG/2 ML SDV IVPUSH ONE (20:37)
--- NOTE | 2020-02-06 20:37 | EDM.PDOC ---
ED HPI GENERAL MEDICAL PROBLEM - General Chief Complaint: Respiratory Problem Stated Complaint: AMBULANCE Time Seen by Provider: 02/06/20 20:35 Source of Information: Reports: Patient History Limitations: Reports: No Limitations - History of Present Illness INITIAL COMMENTS - FREE TEXT/NARRATIVE: returned for worsening SOB. pt was sent here on 02-01 to [facility] and d/c same day with Rx but unable to take due to N&V Generalized Pain Score (Numeric/FACES): 8 - Related Data Allergies Allergy/AdvReac Type Severity Reaction Status Date / Time No Known Allergies Allergy Verified 02/06/20 20:35 Home Meds: Home Meds Pantoprazole [Pantoprazole Sodium] 40 mg PO DAILY 09/13/14 [History] rOPINIRole [Requip] 0.25 mg PO BEDTIME 08/13/15 [History] cycloSPORINE [Restasis] 1 drop EYEBOTH BID 04/14/16 [History] Bumetanide [Bumex] 1 mg PO BID 04/24/18 [History] metFORMIN HCl [Metformin HCl] 1,000 mg PO BIDMEALS 04/24/18 [History] Insulin Aspart [NovoLOG] 10 unit SQ TIDMEALS 10/31/18 [History] Insulin Glargine,Hum.Rec.Anlog [Basaglar Kwikpen U-100] 30 unit SQ QPM 10/31/18 [History] Mirabegron [Myrbetriq] 25 mg PO DAILY 10/31/18 [History] Pregabalin [Lyrica] 150 mg PO BID 10/31/18 [History] Rosuvastatin Calcium 20 mg PO DAILY 12/01/19 [History] predniSONE 10 mg PO DAILY 12/01/19 [History] DULoxetine [Cymbalta] 90 mg PO DAILY 02/06/20 [History] Oxybutynin Chloride [Ditropan Xl] 10 mg PO DAILY 02/06/20 [History] azaTHIOprine [Azathioprine] 50 mg PO DAILY 02/06/20 [History] buPROPion [buPROPion XL] 150 mg PO DAILY 02/06/20 [History] dexAMETHasone [Decadron] 6 mg PO DAILY 02/06/20 [History] oxyCODONE HCl/Acetaminophen [Endocet 5-325 Tablet] 1 tab PO Q6H PRN 02/06/20 [History] riTUXimab [Rituxan] 375 mg IV ASDIRECTED 02/06/20 [History] Past Medical History - Past Health History Medical/Surgical History: Denies Medical/Surgical History HEENT History: Reports: Cataract, Hard of Hearing, Impaired Vision, Other (See Below) Other HEENT History: wears glasses Cardiovascular History: Reports: Hypertension, SOB on Exertion Respiratory History: Reports: Bronchitis, Recurrent, Sleep Apnea, SOB Gastrointestinal History: Reports: Gastritis, Other (See Below) Other Gastrointestinal History: chronic stomach pains. 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 OSTEOMELITIS OF RIGHT FOOT, healed 05/10/17 Neurological History: Reports: Other (See Below) Other Neuro History: SOMNOLENCE, DAYTIME, nerve damage to back and legs Psychiatric History: Reports: Anxiety, Depression, Eating Disorders Endocrine/Metabolic History: Reports: Diabetes, Type II, IDDM, Obesity/BMI 30+, Vitamin D Deficiency Hematologic History: Reports: Iron Deficiency, Other (See Below) Other Hematologic History: HX OF SEPSIS. HX OF MRSA INFECTION Immunologic History: Reports: Immunosuppression, Other (See Below) Other Immunologic History: RA and Lupus Oncologic (Cancer) History: Reports: None Dermatologic History: Reports: Cellulitis, Other (See Below) Other Dermatologic History: hx of mrsa. HX OF SKIN ULCERS OF FOOT, BILAT. DIABETIC SKIN ULCERS. CELLULITIS OF L ANTERIOR LOWER LEG. BIOPSY OF SKIN LESION - Infectious Disease History Infectious Disease History: Reports: Influenza, MRSA, Shingles Other Infectious Disease History: CELLULITIS - Past Surgical History Head Surgeries/Procedures: Reports: None HEENT Surgical History: Reports: Cataract Surgery Other HEENT Surgeries/Procedures: BILAT CATARACT EXTRACTION WITH LENS PLACEMENT Cardiovascular Surgical History: Reports: None Respiratory Surgical History: Reports: None GI Surgical History: Reports: None Other GI Surgeries/Procedures: pt states "to remove infection in my stomach". I & D OF ABDOMINAL ABSCESS Female Surgical History: Reports: Other (See Below) Other Female Surgeries/Procedures: cyst on her left kidney Endocrine Surgical History: Reports: None Neurological Surgical History: Reports: None Musculoskeletal Surgical History: Reports: Amputation, Other (See Below) Other Musculoskeletal Surgeries/Procedures:: right toe ampulation Oncologic Surgical History: Reports: None Dermatological Surgical History: Reports: Other (See Below) Social & Family History - Family History Family Medical History: No Pertinent Family History HEENT: Reports: None Cardiac: Reports: None Respiratory: Reports: None GI: Reports: None : Reports: None OBGYN: Reports: None Musculoskeletal: Reports: RA Neurological: Reports: None Psychiatric: Reports: Depression Endocrine/Metabolic: Reports: Diabetes, type II Hematologic: Reports: None Immunologic: Reports: None Dermatologic: Reports: None Oncologic: Reports: None - Caffeine Use Caffeine Use: Reports: Soda Other Caffeine Use: 16oz daily Caffeine Use Comment: 3/day - Living Situation & Occupation Living situation: Reports: with Family ED ROS GENERAL - Review of Systems Review Of Systems: Comprehensive ROS is negative, except as noted in HPI. ED EXAM, GENERAL - Physical Exam Exam: See Below Exam Limited By: No Limitations General Appearance: Alert, WD/WN, Mild Distress, Moderate Distress, Other (sob tearful) Ears: Hearing Grossly Normal Throat/Mouth: Normal Voice, No Airway Compromise Head: Atraumatic Neck: Non-Tender, Full Range of Motion Respiratory/Chest: No Accessory Muscle Use, Decreased Breath Sounds, Rales, Rhonchi, Other (shallow) Cardiovascular: Regular Rate, Rhythm GI/Abdominal: Soft, Non-Tender (Female) Exam: Deferred Rectal (Female) Exam: Deferred Neurological: Alert, Oriented, Normal Cognition, No Motor/Sensory Deficits Psychiatric: Flat Affect, Tearful Skin Exam: Warm, Dry, Normal Color Lymphatic: No Adenopathy Course - Vital Signs Last Recorded V/S: Last Vital Signs Temp 36.1 C 02/06/20 20:27 Pulse 112 H 02/06/20 20:27 Resp 28 H 02/06/20 20:27 BP 112/68 02/06/20 20:27 Pulse Ox 76 L 02/06/20 20:27 - Orders/Labs/Meds Orders: Active Orders 24 hr Category Date Time Status CULTURE BLOOD [BC] Stat Lab 02/06/20 20:10 Received Sodium Chloride 0.9% [Normal Saline] 1,000 ml Med 02/06/20 20:45 Active IV ASDIRECTED Medication Orders Sodium Chloride (Normal Saline) 1,000 mls @ 150 mls/hr IV ASDIRECTED NELLY Last Admin: 02/06/20 20:47 Dose: 150 mls/hr Documented by: ASIA Labs: Laboratory Tests 02/06/20 02/06/20 02/06/20 Range/Units 20:10 20:10 20:10 WBC 4.6 L (5.0-10.0) 10^3/uL RBC 4.88 (4.2-5.4) 10^6/uL Hgb 14.8 D (12.0-16.0) g/dL Hct 44.2 (37.0-47.0) % MCV 90.6 (80-100) fL MCH 30.3 (27.0-34.0) pg MCHC 33.5 (33.0-35.0) g/dL Plt Count 225 (150-450) 10^3/uL Neut % (Auto) 65.3 (42.2-75.2) % Lymph % (Auto) 24.2 (20.5-50.1) % [place] % (Auto) 10.3 H (2-8) % Eos % (Auto) 0.2 L (1.0-3.0) % Baso % (Auto) 0.0 (0.0-1.0) % D-Dimer, Quantitative 928 H (0-400) ng/mL Sodium 135 L (136-145) mmol/L Potassium 3.6 (3.5-5.1) mmol/L Chloride 99 (98-107) mmol/L Carbon Dioxide 23 (21-32) mmol/L Anion Gap 16.6 H (7-13) mEq/L BUN 27 H (7-18) mg/dL Creatinine 1.78 H (0.55-1.02) mg/dL Est Cr Clr Drug Dosing TNP Estimated GFR (MDRD) 31 BUN/Creatinine Ratio 15.2 (No establ ref range) Glucose 285 H (74-99) mg/dL Lactic Acid (0.4-2.0) mmol/L Calcium 8.5 (8.5-10.1) mg/dL Total Bilirubin 0.5 (0.2-1.0) mg/dL AST 41 H (15-37) U/L ALT 43 (14-59) U/L Alkaline Phosphatase 91 (46-116) U/L Troponin I < 0.017 (0.000-0.056) ng/mL Total Protein 7.3 (6.4-8.2) g/dL Albumin 2.5 L (3.4-5.0) g/dL Globulin 4.8 Albumin/Globulin Ratio 0.52 11/26/20 Range/Units 20:10 WBC (5.0-10.0) 10^3/uL RBC (4.2-5.4) 10^6/uL Hgb (12.0-16.0) g/dL Hct (37.0-47.0) % MCV (80-100) fL MCH (27.0-34.0) pg MCHC (33.0-35.0) g/dL Plt Count (150-450) 10^3/uL Neut % (Auto) (42.2-75.2) % Lymph % (Auto) (20.5-50.1) % [place] % (Auto) (2-8) % Eos % (Auto) (1.0-3.0) % Baso % (Auto) (0.0-1.0) % D-Dimer, Quantitative (0-400) ng/mL Sodium (136-145) mmol/L Potassium (3.5-5.1) mmol/L Chloride (98-107) mmol/L Carbon Dioxide (21-32) mmol/L Anion Gap (7-13) mEq/L BUN (7-18) mg/dL Creatinine (0.55-1.02) mg/dL Est Cr Clr Drug Dosing Estimated GFR (MDRD) BUN/Creatinine Ratio (No establ ref range) Glucose (74-99) mg/dL Lactic Acid 2.0 (0.4-2.0) mmol/L Calcium (8.5-10.1) mg/dL Total Bilirubin (0.2-1.0) mg/dL AST (15-37) U/L ALT (14-59) U/L Alkaline Phosphatase (46-116) U/L Troponin I (0.000-0.056) ng/mL Total Protein (6.4-8.2) g/dL Albumin (3.4-5.0) g/dL Globulin Albumin/Globulin Ratio Meds: Medications Generic Name Dose Route Start Last Admin Trade Name Bart PRN Reason Stop Dose Admin Sodium Chloride 1,000 mls @ 150 mls/hr 02/06/20 20:45 02/06/20 20:47 Normal Saline IV 150 mls/hr ASDIRECTED NELLY Administration Discontinued Medications Generic Name Dose Route Start Last Admin Trade Name Bart PRN Reason Stop Dose Admin Dexamethasone 12 mg 02/06/20 20:33 02/06/20 20:47 Decadron IVPUSH 02/06/20 20:34 12 mg ONETIME ONE Administration Ondansetron HCl 4 mg 02/06/20 20:37 02/06/20 20:47 Zofran IVPUSH 02/06/20 20:38 4 mg ONETIME ONE Administration - Re-Assessments/Exams Free Text/Narrative Re-Assessment/Exam: 02/06/20 22:[address] Garza @ [facility] who kindly accepted pt. Departure - Departure Time of Disposition: 22:04 Disposition: DC/Tfer to Acute Hospital 02 Condition: Fair Clinical Impression: Pneumonia due to COVID-19 virus, Hypoxemia, Elevated d-dimer Hyperglycemia due to type 2 diabetes mellitus Qualifiers: Diabetes mellitus residential insulin use: unspecified residential insulin use status Qualified Code(s): E11.65 - Type 2 diabetes mellitus with hyperglycemia - Discharge Information Forms: Interfacility Transfer [facility] Sepsis Event Note (ED) - Evaluation Sepsis Screening Result: No Definite Risk - Focused Exam Vital Signs: Vital Signs Temp Pulse Resp BP Pulse Ox 02/06/20 20:27 36.1 C 112 H 28 H 112/68 76 L - My Orders Last 24 Hours: My Active Orders 02/06/20 20:10 CULTURE BLOOD [BC] Stat 02/06/20 20:45 Sodium Chloride 0.9% [Normal Saline] 1,000 ml IV ASDIRECTED - Assessment/Plan Last 24 Hours: My Active Orders 02/06/20 20:10 CULTURE BLOOD [BC] Stat 02/06/20 20:45 Sodium Chloride 0.9% [Normal Saline] 1,000 ml IV ASDIRECTED
[2020-02-06 20:45] LABS: ANION GAP 16.6 mEq/L (7-13); CHLORIDE,CL 99 mmol/L (98-107); SODIUM,NA 135 mmol/L (136-145)
[2020-02-06] MEDS ORDERED: Sodium Chloride 0.9% 1,000 ML IV SCH (20:45)
== END 2020-02-06 23:00 ==
LOC: DL.ED 19:55
DX: U07.1 COVID-19 (principal); J12.89 Other viral pneumonia; E11.65 Type 2 diabetes mellitus with hyperglycemia; R09.02 Hypoxemia; R79.1 Abnormal coagulation profile; I10 Essential (primary) hypertension; M32.9 Systemic lupus erythematosus, unspecified; M41.9 Scoliosis, unspecified; F41.9 Anxiety disorder, unspecified; F32.9 Major depressive disorder, single episode, unspecified; Z79.4 Long term (current) use of insulin; Z79.899 Other long term (current) drug therapy
CPT/HCPCS: 36415; 80053; 83605; 84484; 85025; 85379; 87040; 96374; 96375; 99285; J1100; J2405; J7030

== ENCOUNTER 2020-04-03 05:34 | Emergency (ER) | payer MEDICARE, MEDICAID ==
[2020-04-03 05:34] VITALS: BP 130/70; PULSE 99
--- NOTE | 2020-04-03 05:50 | EDM.PDOC ---
ED HPI GENERAL MEDICAL PROBLEM - General Chief Complaint: Gastrointestinal Problem Stated Complaint: AMBULANCE Time Seen by Provider: 04/03/20 05:48 Source of Information: Reports: Patient History Limitations: Reports: No Limitations - History of Present Illness INITIAL COMMENTS - FREE TEXT/NARRATIVE: abd pain since yesterday worse tonight. unable have BM since yesterday but today had diarrhoea. Left Lower Abdomen Pain Score (Numeric/FACES): 9 - Related Data Allergies Allergy/AdvReac Type Severity Reaction Status Date / Time No Known Allergies Allergy Verified 04/03/20 05:34 Home Meds: Home Meds Pantoprazole [Pantoprazole Sodium] 40 mg PO DAILY 09/13/14 [History] rOPINIRole [Requip] 0.25 mg PO BEDTIME 08/13/15 [History] cycloSPORINE [Restasis] 1 drop EYEBOTH BID 04/14/16 [History] Bumetanide [Bumex] 1 mg PO BID 04/24/18 [History] metFORMIN HCl [Metformin HCl] 1,000 mg PO BIDMEALS 04/24/18 [History] Insulin Aspart [NovoLOG] 10 unit SQ TIDMEALS 10/31/18 [History] Insulin Glargine,Hum.Rec.Anlog [Basaglar Kwikpen U-100] 30 unit SQ QPM 10/31/18 [History] Mirabegron [Myrbetriq] 25 mg PO DAILY 10/31/18 [History] Pregabalin [Lyrica] 150 mg PO BID 10/31/18 [History] Rosuvastatin Calcium 20 mg PO DAILY 12/01/19 [History] predniSONE 10 mg PO DAILY 12/01/19 [History] DULoxetine [Cymbalta] 90 mg PO DAILY 02/06/20 [History] Oxybutynin Chloride [Ditropan Xl] 10 mg PO DAILY 02/06/20 [History] azaTHIOprine [Azathioprine] 50 mg PO DAILY 02/06/20 [History] buPROPion [buPROPion XL] 150 mg PO DAILY 02/06/20 [History] dexAMETHasone [Decadron] 6 mg PO DAILY 02/06/20 [History] oxyCODONE HCl/Acetaminophen [Endocet 5-325 Tablet] 1 tab PO Q6H PRN 02/06/20 [History] riTUXimab [Rituxan] 375 mg IV ASDIRECTED 02/06/20 [History] Past Medical History - Past Health History Medical/Surgical History: Denies Medical/Surgical History HEENT History: Reports: Cataract, Hard of Hearing, Impaired Vision, Other (See Below) Other HEENT History: wears glasses Cardiovascular History: Reports: Hypertension, SOB on Exertion Respiratory History: Reports: Bronchitis, Recurrent, Sleep Apnea, SOB Gastrointestinal History: Reports: Gastritis, Other (See Below) Other Gastrointestinal History: chronic stomach pains. 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 OSTEOMELITIS OF RIGHT FOOT, healed 05/10/17 Neurological History: Reports: Other (See Below) Other Neuro History: SOMNOLENCE, DAYTIME, nerve damage to back and legs Psychiatric History: Reports: Anxiety, Depression, Eating Disorders Endocrine/Metabolic History: Reports: Diabetes, Type II, IDDM, Obesity/BMI 30+, Vitamin D Deficiency Hematologic History: Reports: Iron Deficiency, Other (See Below) Other Hematologic History: HX OF SEPSIS. HX OF MRSA INFECTION Immunologic History: Reports: Immunosuppression, Other (See Below) Other Immunologic History: RA and Lupus Oncologic (Cancer) History: Reports: None Dermatologic History: Reports: Cellulitis, Other (See Below) Other Dermatologic History: hx of mrsa. HX OF SKIN ULCERS OF FOOT, BILAT. DIABETIC SKIN ULCERS. CELLULITIS OF L ANTERIOR LOWER LEG. BIOPSY OF SKIN L ESION - Infectious Disease History Infectious Disease History: Reports: Influenza, MRSA, Novel Coronavirus, Shingles Other Infectious Disease History: CELLULITIS - Past Surgical History Head Surgeries/Procedures: Reports: None HEENT Surgical History: Reports: Cataract Surgery Other HEENT Surgeries/Procedures: BILAT CATARACT EXTRACTION WITH LENS PLACEMENT Cardiovascular Surgical History: Reports: None Respiratory Surgical History: Reports: None GI Surgical History: Reports: None Other GI Surgeries/Procedures: pt states "to remove infection in my stomach". I & D OF ABDOMINAL ABSCESS Female Surgical History: Reports: Other (See Below) Other Female Surgeries/Procedures: cyst on her left kidney Endocrine Surgical History: Reports: None Neurological Surgical History: Reports: None Musculoskeletal Surgical History: Reports: Amputation, Other (See Below) Other Musculoskeletal Surgeries/Procedures:: right toe ampulation Oncologic Surgical History: Reports: None Dermatological Surgical History: Reports: Other (See Below) Social & Family History - Family History Family Medical History: No Pertinent Family History HEENT: Reports: None Cardiac: Reports: None Respiratory: Reports: None GI: Reports: None : Reports: None OBGYN: Reports: None Musculoskeletal: Reports: RA Neurological: Reports: None Psychiatric: Reports: Depression Endocrine/Metabolic: Reports: Diabetes, type II Hematologic: Reports: None Immunologic: Reports: None Dermatologic: Reports: None Oncologic: Reports: None - Tobacco Use Tobacco Use Status *Q: Never Tobacco User Second Hand Smoke Exposure: No - Caffeine Use Caffeine Use: Reports: Soda Other Caffeine Use: 16oz daily Caffeine Use Comment: 3/day - Recreational Drug Use Recreational Drug Use: No - Living Situation & Occupation Living situation: Reports: with Family ED ROS GENERAL - Review of Systems Review Of Systems: Comprehensive ROS is negative, except as noted in HPI. ED EXAM, GI/ABD - Physical Exam Exam: See Below Exam Limited By: No Limitations General Appearance: Alert, WD/WN, Mild Distress, Other (discomfort). No: Active Emesis Ears: Hearing Grossly Normal Throat/Mouth: Normal Voice, No Airway Compromise Head: Atraumatic Neck: Non-Tender, Full Range of Motion Respiratory/Chest: No Respiratory Distress Cardiovascular: Regular Rate, Rhythm GI/Abdominal Exam: Soft, Tender, Other (mild periumb region, BS hyper). No: Guarding, Rigid, Rebound (Female) Exam: Deferred Rectal (Female) Exam: Deferred Neurological: Alert, Oriented, Normal Cognition, No Motor/Sensory Deficits Psychiatric: Tearful Skin Exam: Warm, Dry, Normal Color Lymphatic: No Adenopathy Course - Vital Signs Last Recorded V/S: Last Vital Signs Temp 35.9 C L 04/03/20 05:28 Pulse 99 04/03/20 05:28 Resp 18 04/03/20 05:28 BP 130/70 04/03/20 05:28 Pulse Ox 93 L 04/03/20 05:28 - Orders/Labs/Meds Orders: Active Orders 24 hr Category Date Time Status KUB [Abdomen 1V Flat] [CR] Urgent Exams 04/03/20 06:28 Taken Labs: Laboratory Tests 04/03/20 04/03/20 Range/Units 06:14 06:14 WBC 9.1 (5.0-10.0) 10^3/uL RBC 4.38 (4.2-5.4) 10^6/uL Hgb 12.9 D (12.0-16.0) g/dL Hct 40.5 (37.0-47.0) % MCV 92.5 (80-100) fL MCH 29.5 (27.0-34.0) pg MCHC 31.9 L (33.0-35.0) g/dL Plt Count 205 (150-450) 10^3/uL Neut % (Auto) 70.3 (42.2-75.2) % Lymph % (Auto) 15.0 L (20.5-50.1) % Mccreary % (Auto) 8.5 H (2-8) % Eos % (Auto) 5.8 H (1.0-3.0) % Baso % (Auto) 0.4 (0.0-1.0) % Sodium 141 (136-145) mmol/L Potassium 3.5 (3.5-5.1) mmol/L Chloride 105 (98-107) mmol/L Carbon Dioxide 26 (21-32) mmol/L Anion Gap 13.5 H (7-13) mEq/L BUN 21 H (7-18) mg/dL Creatinine 1.51 H (0.55-1.02) mg/dL Est Cr Clr Drug Dosing 47.46 mL/min Estimated GFR (MDRD) 37 BUN/Creatinine Ratio 13.9 (No establ ref range) Glucose 72 L (74-99) mg/dL Calcium 9.5 (8.5-10.1) mg/dL Total Bilirubin 0.3 (0.2-1.0) mg/dL AST 17 (15-37) U/L ALT 34 (14-59) U/L Alkaline Phosphatase 95 (46-116) U/L Total Protein 6.6 (6.4-8.2) g/dL Albumin 3.5 (3.4-5.0) g/dL Globulin 3.1 Albumin/Globulin Ratio 1.1 Meds: Medications Discontinued Medications Generic Name Dose Route Start Last Admin Trade Name Freq PRN Reason Stop Dose Admin Ketorolac Tromethamine 30 mg 04/03/20 06:06 04/03/20 06:14 Toradol IVPUSH 04/03/20 06:07 30 mg ONETIME ONE Administration - Re-Assessments/Exams Free Text/Narrative Re-Assessment/Exam: 04/03/20 06:53 results discussed with pt Departure - Departure Time of Disposition: 06:53 Disposition: Home, Self-Care 01 Condition: Good Clinical Impression: Abdominal pain, Constipation - Discharge Information Instructions: Constipation, Adult, [id number] Forms: ED Department Discharge Additional Instructions: 1) avoid solid foods over the weekend 2) have liquid diet 3) take mag citrate when get home 4) may try MIRALAX from [employer] 5) follow up at clinic rx togo; mag cit Sepsis Event Note (ED) - Evaluation Sepsis Screening Result: No Definite Risk - Focused Exam Vital Signs: Vital Signs Temp Pulse Resp BP Pulse Ox 04/03/20 05:28 35.9 C L 99 18 130/70 93 L - My Orders Last 24 Hours: My Active Orders 04/03/20 06:28 KUB [Abdomen 1V Flat] [CR] Urgent - Assessment/Plan Last 24 Hours: My Active Orders 04/03/20 06:28 KUB [Abdomen 1V Flat] [CR] Urgent
[2020-04-03] MEDS ORDERED: Ketorolac 30 MG/ML SDV IVPUSH ONE (06:06)
[2020-04-03 06:40] LABS: ANION GAP 13.5 mEq/L (7-13)
--- NOTE | 2020-04-03 07:06 | CR ---
PROCEDURE INFORMATION: Exam: XR Abdomen, 1 View Exam date and time: 04/03/2020 6:29 AM Age: 44 years old Clinical indication: Abdominal pain; Generalized; Additional info: Pain, no bm TECHNIQUE: Imaging protocol: XR of the abdomen. Views: Frontal supine view of the abdomen. 1 View. COMPARISON: CT Abdomen Pelvis wo Cont 04/18/2019 11:10 AM FINDINGS: Diaphragm: There is an elevated right hemidiaphragm present on the current examination. Gastrointestinal tract: Moderate feces is present throughout the colon. No significant distention of the large or small bowel. Bones/joints: Unremarkable. IMPRESSION: No acute findings.
== END 2020-04-03 07:13 | disposition home or self-care (01) ==
LOC: DL.ED 05:34
DX: K59.00 Constipation, unspecified (principal); I10 Essential (primary) hypertension; M41.9 Scoliosis, unspecified; M32.9 Systemic lupus erythematosus, unspecified; E11.69 Type 2 diabetes mellitus with other specified complication; M86.9 Osteomyelitis, unspecified; E66.9 Obesity, unspecified; Z68.38 Body mass index [BMI] 38.0-38.9, adult; Z79.4 Long term (current) use of insulin; Z79.899 Other long term (current) drug therapy
CPT/HCPCS: 36415; 74018; 80053; 85025; 96374; 99283; 99284; J1885

== ENCOUNTER 2020-05-28 21:19 | Emergency (ER) | payer MEDICARE, MEDICAID ==
[2020-05-28 21:40] VITALS: BP 113/90; PULSE 103
--- NOTE | 2020-05-28 23:06 | CR ---
PROCEDURE INFORMATION: Exam: XR Right Shoulder Exam date and time: 05/28/2020 10:46 PM Age: 44 years old Clinical indication: Other: Pain--no trauma; Additional info: Right shoulder pain TECHNIQUE: Imaging protocol: XR Right shoulder. Views: 2 or more views. COMPARISON: No relevant prior studies available. FINDINGS: Bones/joints: Normal. Soft tissues: Normal. IMPRESSION: No acute findings.
--- NOTE | 2020-05-29 00:16 | EDM.PDOC ---
ED HPI GENERAL MEDICAL PROBLEM - General Chief Complaint: Neurological Problem Stated Complaint: RIGHT ARM, RIGHT SIDE NUMB Time Seen by Provider: 05/28/20 23:10 Source of Information: Reports: Patient History Limitations: Reports: No Limitations - History of Present Illness INITIAL COMMENTS - FREE TEXT/NARRATIVE: This 44 yo female patient reports to the ED with right shoulder and arm pain. The patient reports her symptoms started 2 days ago and have continued. The patient was seen in [place] in [place] yesterday for right sided pain, but was discharged. The patient reports she did report her right shoulder pain during that visit, but they worked up her abdominal pain at that time. The patient denies any history of falls or acute injuries. Onset Date: 05/27/20 Duration: Constant, Getting Worse Location: Reports: Upper Extremity, Right Quality: Reports: Ache, Dull Severity: Moderate Improves with: Reports: None Worsens with: Reports: None Context: Reports: Other Right Leg Pain Score (Numeric/FACES): 8 - Related Data Allergies Allergy/AdvReac Type Severity Reaction Status Date / Time No Known Allergies Allergy Verified 04/03/20 05:34 Home Meds: Home Meds Pantoprazole [Pantoprazole Sodium] 40 mg PO DAILY 09/13/14 [History] rOPINIRole [Requip] 0.25 mg PO BEDTIME 08/13/15 [History] cycloSPORINE [Restasis] 1 drop EYEBOTH BID 04/14/16 [History] Bumetanide [Bumex] 1 mg PO BID 04/24/18 [History] metFORMIN HCl [Metformin HCl] 1,000 mg PO BIDMEALS 04/24/18 [History] Insulin Aspart [NovoLOG] 10 unit SQ TIDMEALS 10/31/18 [History] Insulin Glargine,Hum.Rec.Anlog [Basaglar Kwikpen U-100] 30 unit SQ QPM 10/31/18 [History] Mirabegron [Myrbetriq] 25 mg PO DAILY 10/31/18 [History] Pregabalin [Lyrica] 150 mg PO BID 10/31/18 [History] Rosuvastatin Calcium 20 mg PO DAILY 12/01/19 [History] predniSONE 10 mg PO DAILY 12/01/19 [History] DULoxetine [Cymbalta] 90 mg PO DAILY 02/06/20 [History] Oxybutynin Chloride [Ditropan Xl] 10 mg PO DAILY 02/06/20 [History] azaTHIOprine [Azathioprine] 50 mg PO DAILY 02/06/20 [History] buPROPion [buPROPion XL] 150 mg PO DAILY 02/06/20 [History] dexAMETHasone [Decadron] 6 mg PO DAILY 02/06/20 [History] oxyCODONE HCl/Acetaminophen [Endocet 5-325 Tablet] 1 tab PO Q6H PRN 02/06/20 [History] riTUXimab [Rituxan] 375 mg IV ASDIRECTED 02/06/20 [History] Past Medical History - Past Health History Medical/Surgical History: Denies Medical/Surgical History HEENT History: Reports: Cataract, Hard of Hearing, Impaired Vision, Other (See Below) Other HEENT History: wears glasses Cardiovascular History: Reports: Hypertension, SOB on Exertion Respiratory History: Reports: Bronchitis, Recurrent, Sleep Apnea, SOB Gastrointestinal History: Reports: Gastritis, Other (See Below) Other Gastrointestinal History: chronic stomach pains. 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 OSTEOMELITIS OF RIGHT FOOT, healed 05/10/17 Neurological History: Reports: Other (See Below) Other Neuro History: SOMNOLENCE, DAYTIME, nerve damage to back and legs Psychiatric History: Reports: Anxiety, Depression, Eating Disorders Endocrine/Metabolic History: Reports: Diabetes, Type II, IDDM, Obesity/BMI 30+, Vitamin D Deficiency Hematologic History: Reports: Iron Deficiency, Other (See Below) Other Hematologic History: HX OF SEPSIS. HX OF MRSA INFECTION Immunologic History: Reports: Immunosuppression, Other (See Below) Other Immunologic History: RA and Lupus Oncologic (Cancer) History: Reports: None Dermatologic History: Reports: Cellulitis, Other (See Below) Other Dermatologic History: hx of mrsa. HX OF SKIN ULCERS OF FOOT, BILAT. DIABETIC SKIN ULCERS. CELLULITIS OF L ANTERIOR LOWER LEG. BIOPSY OF SKIN LESION - Infectious Disease History Infectious Disease History: Reports: Influenza, MRSA, Novel Coronavirus, Shingles Other Infectious Disease History: CELLULITIS - Past Surgical History Head Surgeries/Procedures: Reports: None HEENT Surgical History: Reports: Cataract Surgery Other HEENT Surgeries/Procedures: BILAT CATARACT EXTRACTION WITH LENS PLACEMENT Cardiovascular Surgical History: Reports: None Respiratory Surgical History: Reports: None GI Surgical History: Reports: None Other GI Surgeries/Procedures: pt states "to remove infection in my stomach". I & D OF ABDOMINAL ABSCESS Female Surgical History: Reports: Other (See Below) Other Female Surgeries/Procedures: cyst on her left kidney Endocrine Surgical History: Reports: None Neurological Surgical History: Reports: None Musculoskeletal Surgical History: Reports: Amputation, Other (See Below) Other Musculoskeletal Surgeries/Procedures:: right toe ampulation Oncologic Surgical History: Reports: None Dermatological Surgical History: Reports: Other (See Below) Social & Family History - Family History Family Medical History: No Pertinent Family History HEENT: Reports: None Cardiac: Reports: None Respiratory: Reports: None GI: Reports: None : Reports: None OBGYN: Reports: None Musculoskeletal: Reports: RA Neurological: Reports: None Psychiatric: Reports: Depression Endocrine/Metabolic: Reports: Diabetes, type II Hematologic: Reports: None Immunologic: Reports: None Dermatologic: Reports: None Oncologic: Reports: None - Tobacco Use Tobacco Use Status *Q: Never Tobacco User Second Hand Smoke Exposure: No - Caffeine Use Caffeine Use: Reports: Soda Other Caffeine Use: 16oz daily Caffeine Use Comment: 3/day - Recreational Drug Use Recreational Drug Use: Yes Drug Use in Last 12 Months: Yes Recreational Drug Type: Reports: Marijuana/Hashish - Living Situation & Occupation Living situation: Reports: with Family Review of Systems - Review of Systems Review Of Systems: Comprehensive ROS is negative, except as noted in HPI. ED EXAM, GENERAL - Physical Exam Exam: See Below Exam Limited By: No Limitations General Appearance: Alert, WD/WN, Mild Distress, Obese Eye Exam: Bilateral Eye: EOMI, Normal Inspection, PERRL Ears: Normal External Exam, Normal Canal, Hearing Grossly Normal, Normal TMs Nose: Normal Inspection, Normal Mucosa, No Blood Throat/Mouth: Normal Inspection, Normal Lips, Normal Teeth, Normal Gums, Normal Oropharynx, Normal Voice, No Airway Compromise Head: Atraumatic, Normocephalic Neck: Normal Inspection, Supple, Non-Tender, Full Range of Motion Respiratory/Chest: No Respiratory Distress, Lungs Clear, Normal Breath Sounds, No Accessory Muscle Use, Chest Non-Tender Cardiovascular: Normal Peripheral Pulses, Regular Rate, Rhythm, No Edema, No Gallop, No JVD, No Murmur, No Rub GI/Abdominal: Normal Bowel Sounds, Soft, Non-Tender, No Organomegaly, No Distention, No Abnormal Bruit, No Mass (Female) Exam: Deferred Rectal (Female) Exam: Deferred Back Exam: Normal Inspection, Full Range of Motion, NT Extremities: Arm Pain (right shoulder) Neurological: Alert, Oriented, CN II-XII Intact, Normal Cognition, Normal Gait, Normal Reflexes, No Motor/Sensory Deficits Psychiatric: Normal Affect, Normal Mood Skin Exam: Warm, Dry, Intact, Normal Color, No Rash Lymphatic: No Adenopathy Course - Vital Signs Last Recorded V/S: Last Vital Signs Temp 35.8 C L 05/28/20 21:34 Pulse 103 H 05/28/20 21:34 Resp 18 05/28/20 21:34 BP 113/90 05/28/20 21:34 Pulse Ox 95 05/28/20 21:34 Departure - Departure Time of Disposition: 00:18 Disposition: Home, Self-Care 01 Condition: Fair Clinical Impression: Right shoulder pain Qualifiers: Chronicity: acute Qualified Code(s): M25.511 - Pain in right shoulder - Discharge Information *PRESCRIPTION DRUG MONITORING PROGRAM REVIEWED*: Not Applicable *COPY OF PRESCRIPTION DRUG MONITORING REPORT IN PATIENT MAURICIO: Not Applicable Instructions: Shoulder Pain, [id number] Care Plan Goals: The patient was advised of the examination and x-ray results. The patient was placed in a right shoulder immobilizer. The patient was encouraged to rest the area of concern. The patient may take Tylenol or ibuprofen as directed for temporary symptom relief. If the patient has any additional symptoms or concerns, the patient should either return to the emergency department or visit her primary care facility. Sepsis Event Note (ED) - Evaluation Sepsis Screening Result: No Definite Risk - Focused Exam Vital Signs: Vital Signs Temp Pulse Resp BP Pulse Ox 05/28/20 21:34 35.8 C L 103 H 18 113/90 95
== END 2020-05-29 00:36 | disposition home or self-care (01) ==
LOC: DL.ED 21:19
DX: M25.511 Pain in right shoulder (principal); I10 Essential (primary) hypertension; E11.9 Type 2 diabetes mellitus without complications; E66.9 Obesity, unspecified; Z79.899 Other long term (current) drug therapy; Z79.4 Long term (current) use of insulin; Z68.41 Body mass index [BMI] 40.0-44.9, adult
CPT/HCPCS: 73030-RT; 99282; 99283-25

== ENCOUNTER 2020-07-26 23:22 | Observation (INO) | payer MEDICARE, MEDICAID ==
[2020-07-27] MEDS ORDERED: Diphtheria,Pertussis(Acell),Tetanus Vaccine 0.5 ML Syringe IM ONE (00:04)
[2020-07-27] MEDS ORDERED: Lidocaine 1% 30 ML SDV INJECT ONE (00:04)
[2020-07-27] MEDS ORDERED: Bacitracin Oint 1 GM U/D Packet TOP ONE (00:04)
--- NOTE | 2020-07-27 00:14 | EDM.PDOC ---
ED HPI GENERAL MEDICAL PROBLEM - General Chief Complaint: Laceration Stated Complaint: AMBULANCE Time Seen by Provider: 07/26/20 23:45 Source of Information: Reports: Patient, EMS, EMS Notes Reviewed, RN, RN Notes Reviewed History Limitations: Reports: No Limitations - History of Present Illness INITIAL COMMENTS - FREE TEXT/NARRATIVE: Patient is a 44-year-old female who presents to ER per [facility] with complaint of syncopal episode causing facial trauma. Happened this evening approximately 10 PM. Patient states she has been dizzy for the past few days, and states it improves when she lays down. Patient states the last thing she remembers was getting up to go to the bathroom and she woke up to her son calling her name. Patient denies any recent chest pains, shortness of breath, fever or chills, abdominal pain, nausea, vomiting, diarrhea. Patient denies any urinary symptoms, frequency, urgency, burning with urination. Patient denies any headaches recently. Patient states history of DM type II using insulin, lupus, MRSA, recent right shoulder surgery, and sepsis 3 times. Patient currently has a PICC line in the left antecubital which is used for daily antibiotics. Patient gives herself the antibiotics at home. Patient states she did have Covid in January, has not been vaccinated. Unknown if exposure recently to Covid. Onset: Today, Sudden Nose Pain Score (Numeric/FACES): 6 Back Pain Score (Numeric/FACES): 5 - Related Data Allergies Allergy/AdvReac Type Severity Reaction Status Date / Time No Known Allergies Allergy Verified 04/03/20 05:34 Home Meds: Home Meds Pantoprazole [Pantoprazole Sodium] 40 mg PO DAILY 09/13/14 [History] rOPINIRole [Requip] 0.25 mg PO BEDTIME 08/13/15 [History] cycloSPORINE [Restasis] 1 drop EYEBOTH BID 04/14/16 [History] Bumetanide [Bumex] 1 mg PO BID 04/24/18 [History] metFORMIN HCl [Metformin HCl] 1,000 mg PO BIDMEALS 04/24/18 [History] Insulin Aspart [NovoLOG] 10 unit SQ TIDMEALS 10/31/18 [History] Insulin Glargine,Hum.Rec.Anlog [Basaglar Kwikpen U-100] 30 unit SQ QPM 10/31/18 [History] Mirabegron [Myrbetriq] 25 mg PO DAILY 10/31/18 [History] Pregabalin [Lyrica] 150 mg PO BID 10/31/18 [History] Rosuvastatin Calcium 20 mg PO DAILY 12/01/19 [History] predniSONE 10 mg PO DAILY 12/01/19 [History] DULoxetine [Cymbalta] 90 mg PO DAILY 02/06/20 [History] Oxybutynin Chloride [Ditropan Xl] 10 mg PO DAILY 02/06/20 [History] azaTHIOprine [Azathioprine] 50 mg PO DAILY 02/06/20 [History] buPROPion [buPROPion XL] 150 mg PO DAILY 02/06/20 [History] dexAMETHasone [Decadron] 6 mg PO DAILY 02/06/20 [History] oxyCODONE HCl/Acetaminophen [Endocet 5-325 Tablet] 1 tab PO Q6H PRN 02/06/20 [History] riTUXimab [Rituxan] 375 mg IV ASDIRECTED 02/06/20 [History] Past Medical History - Past Health History Medical/Surgical History: Denies Medical/Surgical History HEENT History: Reports: Cataract, Hard of Hearing, Impaired Vision, Other (See Below) Other HEENT History: wears glasses Cardiovascular History: Reports: Hypertension, SOB on Exertion Respiratory History: Reports: Bronchitis, Recurrent, Sleep Apnea, SOB Gastrointestinal History: Reports: Gastritis, Other (See Below) Other Gastrointestinal History: chronic stomach pains. ABCESS OF ABDOMEN Genitourinary History: Reports: Renal Disease, UTI, Recurrent, Other (See Below) Other Genitourinary History: RENAL ABSCESS [employer] History: Reports: , Other (See Below) Other [employer] History: 2 Musculoskeletal History: Reports: Amputation, Back Pain, Chronic, Fibromyalgia, RA, SLE, Other (See Below) Other Musculoskeletal History: Scoliosis of the spine w/ chronic back pain. OSTEOMELITIS OF RIGHT FOOT, healed 05/10/17 Neurological History: Reports: Other (See Below) Other Neuro History: SOMNOLENCE, DAYTIME, nerve damage to back and legs Psychiatric History: Reports: Anxiety, Depression, Eating Disorders Endocrine/Metabolic History: Reports: Diabetes, Type II, IDDM, Obesity/BMI 30+, Vitamin D Deficiency Hematologic History: Reports: Iron Deficiency, Other (See Below) Other Hematologic History: HX OF SEPSIS. HX OF MRSA INFECTION Immunologic History: Reports: Immunosuppression, Other (See Below) Other Immunologic History: RA and Lupus Oncologic (Cancer) History: Reports: None Dermatologic History: Reports: Cellulitis, Other (See Below) Other Dermatologic History: hx of mrsa. HX OF SKIN ULCERS OF FOOT, BILAT. DIABETIC SKIN ULCERS. CELLULITIS OF L ANTERIOR LOWER LEG. BIOPSY OF SKIN LESION - Infectious Disease History Infectious Disease History: Reports: Influenza, MRSA, Novel Coronavirus, Shingles Other Infectious Disease History: CELLULITIS - Past Surgical History Head Surgeries/Procedures: Reports: None HEENT Surgical History: Reports: Cataract Surgery Other HEENT Surgeries/Procedures: BILAT CATARACT EXTRACTION WITH LENS PLACEMENT Cardiovascular Surgical History: Reports: None Respiratory Surgical History: Reports: None GI Surgical History: Reports: None Other GI Surgeries/Procedures: pt states "to remove infection in my stomach". I & D OF ABDOMINAL ABSCESS Female Surgical History: Reports: Other (See Below) Other Female Surgeries/Procedures: cyst on her left kidney Endocrine Surgical History: Reports: None Neurological Surgical History: Reports: None Musculoskeletal Surgical History: Reports: Amputation, Other (See Below) Other Musculoskeletal Surgeries/Procedures:: right toe ampulation Oncologic Surgical History: Reports: None Dermatological Surgical History: Reports: Other (See Below) Social & Family History - Family History Family Medical History: No Pertinent Family History HEENT: Reports: None Cardiac: Reports: None Respiratory: Reports: None GI: Reports: None : Reports: None OBGYN: Reports: None Musculoskeletal: Reports: RA Neurological: Reports: None Psychiatric: Reports: Depression Endocrine/Metabolic: Reports: Diabetes, type II Hematologic: Reports: None Immunologic: Reports: None Dermatologic: Reports: None Oncologic: Reports: None - Tobacco Use Tobacco Use Status *Q: Former Tobacco User Used Tobacco, but Quit: No - Caffeine Use Caffeine Use: Reports: Coffee, Soda, Tea Other Caffeine Use: 16oz daily Caffeine Use Comment: 3/day - Recreational Drug Use Recreational Drug Use: No - Living Situation & Occupation Living situation: Reports: with Family ED ROS GENERAL - Review of Systems Review Of Systems: Comprehensive ROS is negative, except as noted in HPI. ED EXAM, SKIN/RASH Exam: See Below Exam Limited By: No Limitations General Appearance: Alert, WD/WN, No Apparent Distress Eye Exam: Right Eye: Bleeding (sclera), Bilateral Eye: EOMI, PERRL (3 brisk) Ears: Normal External Exam, Hearing Grossly Normal Nose: Nasal Deformity, Other (laceration to the bridge of the nose) Head: Normocephalic, Facial Swelling, Facial Tenderness, Other (facial ecchymosis to the right cheek and periorbital) Neck: Normal Inspection, Supple, Non-Tender, Full Range of Motion Respiratory/Chest: No Respiratory Distress, No Accessory Muscle Use, Chest Non- Tender, Decreased Breath Sounds Cardiovascular: Normal Peripheral Pulses, Regular Rate, Rhythm, No Edema, No Gallop, No JVD, No Murmur, No Rub Peripheral Pulses: 2+: Radial (L), Radial (R) GI/Abdominal: Normal Bowel Sounds, Soft, Non-Tender (Female) Exam: Deferred Rectal (Female) Exam: Deferred Back Exam: Normal Inspection, Full Range of Motion, NT Extremities: Normal Inspection, Normal Range of Motion, Non-Tender, No Pedal Edema, Normal Capillary Refill Neurological: Alert, Oriented, CN II-XII Intact, Normal Cognition, Normal Reflexes, No Motor/Sensory Deficits, Slow to Respond Psychiatric: Normal Affect, Normal Mood Skin: Warm, Dry, Normal Color, No Rash, Other (2cm laceration to the bridge of the nose) Location, Skin: Face Associated features: Tenderness Lymphatic: No Adenopathy ED SKIN PROCEDURES - Laceration/Wound Repair Upper Midline Nose Appearance: Subcutaneous Distal NVT: Neuro & Vascular Intact Anesthetic Type: Local Skin Prep: Chlorhexidine (Hibiciens) Exploration/Debridement/Repair: Wound Explored, In a Bloodless Field, Explored to Base, No Foreign Material Found Closed with: Sutures Lac/Wound length In cm: 2 Suture Size: 6-0 # of Sutures: 6 Suture Type: Nylon, Interrupted Drain Placement: No Sterile Dressing Applied: Nurse Tetanus Status Addressed: Yes Complications: No #1 Interpretation EKG Date: 07/27/20 Time: 00:16 Rhythm: Other (sinus tachycardia) Rate (Beats/Min): 103 [place]: Normal P-Wave: Present QRS: Normal ST-T: Normal QT: Normal Comparison: Change From Previous EKG Course - Vital Signs Last Recorded V/S: Last Vital Signs Temp 96.4 F L 07/26/20 23:28 Pulse 109 H 07/26/20 23:28 Resp 19 07/26/20 23:28 BP 135/72 07/26/20 23:28 Pulse Ox 98 07/26/20 23:28 - Orders/Labs/Meds Orders: Active Orders 24 hr Category Date Time Status EKG Documentation Completion [RC] STAT Care 07/26/20 23:59 Active Vaccines to be Administered [RC] PER UNIT ROUTINE Care 07/27/20 00:04 Active COVID-19/FLU A+B [MOLEC] Stat Lab 07/27/20 01:42 Received CULTURE BLOOD [BC] Stat Lab 07/27/20 00:40 Results CULTURE BLOOD [BC] Stat Lab 07/27/20 00:45 Results REFLEX LACTIC ACID YES OR NO [CHEM] Routine Lab 07/27/20 01:12 Received Blood Culture x2 Reflex Set [OM.PC] Stat Oth 07/26/20 23:59 Ordered Medication Orders Acetaminophen (Acetaminophen 325 Mg Tab) 650 mg PO Q4H PRN PRN Reason: Pain (Mild 1-3)/fever Sodium Chloride (Normal Saline) 1,000 mls @ 999 mls/hr IV .BOLUS NELLY Sodium Chloride (Normal Saline) 1,000 mls @ 125 mls/hr IV ASDIRECTED NELLY Ondansetron HCl (Ondansetron 4 Mg/2 Ml Sdv) 4 mg IVPUSH Q4H PRN PRN Reason: Nausea/Vomiting Oxycodone HCl (Oxycodone 5 Mg Tab) 5 mg PO Q4H PRN PRN Reason: Pain (moderate 4-6) Labs: Laboratory Tests 07/27/20 07/27/20 07/27/20 Range/Units 00:40 00:40 00:40 WBC 9.0 (5.0-10.0) 10^3/uL RBC 3.80 L (4.2-5.4) 10^6/uL Hgb 10.5 L D (12.0-16.0) g/dL Hct 35.5 L (37.0-47.0) % MCV 93.4 (80-100) fL MCH 27.6 (27.0-34.0) pg MCHC 29.6 L (33.0-35.0) g/dL Plt Count 333 D (150-450) 10^3/uL Neut % (Auto) 74.6 (42.2-75.2) % Lymph % (Auto) 15.1 L (20.5-50.1) % [place] % (Auto) 9.8 H (2-8) % Eos % (Auto) 0.2 L (1.0-3.0) % Baso % (Auto) 0.3 (0.0-1.0) % Sodium 142 (136-145) mmol/L Potassium 4.7 (3.5-5.1) mmol/L Chloride 105 (98-107) mmol/L Carbon Dioxide 26 (21-32) mmol/L Anion Gap 15.7 H (7-13) mEq/L BUN 15 (7-18) mg/dL Creatinine 2.39 H (0.55-1.02) mg/dL Est Cr Clr Drug Dosing 28.91 mL/min Estimated GFR (MDRD) 22 BUN/Creatinine Ratio 6.3 (No establ ref range) Glucose 265 H (70-99) mg/dL Lactic Acid 2.3 H* (0.4-2.0) mmol/L Calcium 8.5 (8.5-10.1) mg/dL Total Bilirubin 0.2 (0.2-1.0) mg/dL AST 24 (15-37) U/L ALT 16 (14-59) U/L Alkaline Phosphatase 76 (46-116) U/L Troponin I < 0.017 (0.000-0.056) ng/mL C-Reactive Protein 1.3 H (0.0-0.9) mg/dL Total Protein 7.2 (6.4-8.2) g/dL Albumin 3.3 L (3.4-5.0) g/dL Globulin 3.9 Albumin/Globulin Ratio 0.85 Urine Color (YELLOW) Urine Appearance (CLEAR) Urine pH (5.0-9.0) Ur Specific [place] (1.005-1.030) Urine Protein (NEGATIVE) Urine Glucose (UA) (NEGATIVE) Urine Ketones (NEGATIVE) Urine Occult Blood (NEGATIVE) Urine Nitrite (NEGATIVE) Urine Bilirubin (NEGATIVE) Urine Urobilinogen (0.2-1.0) mg/dL Ur Leukocyte Esterase (NEGATIVE) Urine RBC /HPF Urine WBC (0-5/HPF) /HPF Ur Epithelial Cells (NOT SEEN) /HPF Urine Bacteria (0-FEW/HPF) /HPF Fine Granular Casts (NOT SEEN) /LPF Urine HCG, Qual Urine Opiates Screen (NEGATIVE) Ur Oxycodone Screen (NEGATIVE) Urine Methadone Screen (NEGATIVE) Ur Barbiturates Screen (NEGATIVE) U Tricyclic Antidepress (NEGATIVE) Ur Phencyclidine Scrn (NEGATIVE) Ur Amphetamine Screen (NEGATIVE) U Methamphetamines Scrn (NEGATIVE) Urine MDMA Screen (NEGATIVE) U Benzodiazepines Scrn (NEGATIVE) Urine Cocaine Screen (NEGATIVE) U Marijuana (THC) Screen (NEGATIVE) Ethyl Alcohol < 3 (0) mg/dL 07/27/20 07/27/20 07/27/20 Range/Units 01:40 01:40 01:40 WBC (5.0-10.0) 10^3/uL RBC (4.2-5.4) 10^6/uL Hgb (12.0-16.0) g/dL Hct (37.0-47.0) % MCV (80-100) fL MCH (27.0-34.0) pg MCHC (33.0-35.0) g/dL Plt Count (150-450) 10^3/uL Neut % (Auto) (42.2-75.2) % Lymph % (Auto) (20.5-50.1) % [place] % (Auto) (2-8) % Eos % (Auto) (1.0-3.0) % Baso % (Auto) (0.0-1.0) % Sodium (136-145) mmol/L Potassium (3.5-5.1) mmol/L Chloride (98-107) mmol/L Carbon Dioxide (21-32) mmol/L Anion Gap (7-13) mEq/L BUN (7-18) mg/dL Creatinine (0.55-1.02) mg/dL Est Cr Clr Drug Dosing mL/min Estimated GFR (MDRD) BUN/Creatinine Ratio (No establ ref range) Glucose (70-99) mg/dL Lactic Acid (0.4-2.0) mmol/L Calcium (8.5-10.1) mg/dL Total Bilirubin (0.2-1.0) mg/dL AST (15-37) U/L ALT (14-59) U/L Alkaline Phosphatase (46-116) U/L Troponin I (0.000-0.056) ng/mL C-Reactive Protein (0.0-0.9) mg/dL Total Protein (6.4-8.2) g/dL Albumin (3.4-5.0) g/dL Globulin Albumin/Globulin Ratio Urine Color Yellow (YELLOW) Urine Appearance Slightly cloudy (CLEAR) Urine pH 5.5 (5.0-9.0) Ur Specific [place] >= 1.030 (1.005-1.030) Urine Protein >=300 H (NEGATIVE) Urine Glucose (UA) 100 H (NEGATIVE) Urine Ketones Trace H (NEGATIVE) Urine Occult Blood Trace-intact H (NEGATIVE) Urine Nitrite Negative (NEGATIVE) Urine Bilirubin Negative (NEGATIVE) Urine Urobilinogen 0.2 (0.2-1.0) mg/dL Ur Leukocyte Esterase Negative (NEGATIVE) Urine RBC 0-5 /HPF Urine WBC 5-10 H (0-5/HPF) /HPF Ur Epithelial Cells Moderate H (NOT SEEN) /HPF Urine Bacteria Many H (0-FEW/HPF) /HPF Fine Granular Casts Few H (NOT SEEN) /LPF Urine HCG, Qual Negative Urine Opiates Screen Positive H (NEGATIVE) Ur Oxycodone Screen Positive H (NEGATIVE) Urine Methadone Screen Negative (NEGATIVE) Ur Barbiturates Screen Negative (NEGATIVE) U Tricyclic Antidepress Negative (NEGATIVE) Ur Phencyclidine Scrn Negative (NEGATIVE) Ur Amphetamine Screen Negative (NEGATIVE) U Methamphetamines Scrn Negative (NEGATIVE) Urine MDMA Screen Negative (NEGATIVE) U Benzodiazepines Scrn Negative (NEGATIVE) Urine Cocaine Screen Negative (NEGATIVE) U Marijuana (THC) Screen Negative (NEGATIVE) Ethyl Alcohol (0) mg/dL Meds: Medications Generic Name Dose Route Start Last Admin Trade Name Freq PRN Reason Stop Dose Admin Acetaminophen 650 mg 07/27/20 02:17 Acetaminophen 325 Mg Tab PO Q4H PRN Pain (Mild 1-3)/fever Sodium Chloride 1,000 mls @ 999 mls/hr 07/27/20 02:30 Normal Saline IV .BOLUS NELLY Sodium Chloride 1,000 mls @ 125 mls/hr 07/27/20 02:30 Normal Saline IV ASDIRECTED NELLY Ondansetron HCl 4 mg 07/27/20 02:17 Ondansetron 4 Mg/2 Ml Sdv IVPUSH Q4H PRN Nausea/Vomiting Oxycodone HCl 5 mg 07/27/20 02:17 Oxycodone 5 Mg Tab PO Q4H PRN Pain (moderate 4-6) Discontinued Medications Generic Name Dose Route Start Last Admin Trade Name Tomq PRN Reason Stop Dose Admin Bacitracin 1 dose 07/27/20 00:04 07/27/20 00:14 Bacitracin Oint 1 Gm U/D Packet TOP 07/27/20 00:05 1 dose ONETIME ONE Administration Diphtheria/Tetanus/Acell Pertussis 0.5 ml 07/27/20 00:04 07/27/20 00:11 Diphtheria,Pertussis(Acell),Tetanus Vaccine 0.5 Ml Syringe IM 07/27/20 00:05 0.5 ml .ONCE ONE Administration Lidocaine HCl 30 ml 07/27/20 00:04 07/27/20 00:13 Lidocaine 1% 30 Ml Sdv INJECT 07/27/20 00:05 30 ml ONETIME ONE Administration - Radiology Interpretation Free Text/Narrative:: Head CT wo contrast: PROCEDURE INFORMATION: Exam: CT Head Without Contrast Exam date and time: 07/27/2020 12:22 AM Age: 44 years old Clinical indication: Other: Fell face first/pain; Additional info: Syncopal episode, facial trauma TECHNIQUE: Imaging protocol: Computed tomography of the head without contrast. Radiation optimization: All CT scans at this facility use at least one of these dose optimization techniques: automated exposure control; mA and/or kV adjustment per patient size (includes targeted exams where dose is matched to clinical indication); or iterative reconstruction. COMPARISON: CT Head wo Cont 02/02/2020 1:39 AM FINDINGS: Brain: No acute hemorrhage. Unremarkable white matter. No mass effect. Cerebral ventricles: No ventriculomegaly. Bones/joints: Bony calvarium is intact. Mastoid air cells: Visualized mastoid air cells are well aerated. Soft tissues: Unremarkable. IMPRESSION: No acute intracranial process. Maxillofacial fractures are described separately in same-day maxillofacial CT report Thank you for allowing us to participate in the care of your patient. Dictated and Authenticated by: Henrry Angel MD 07/27/2020 1:16 AM Central Time ([place] & [place]) C Spine CT wo contrast: PROCEDURE INFORMATION: Exam: CT Cervical Spine Without Contrast Exam date and time: 07/27/2020 12:22 AM Age: 44 years old Clinical indication: Other: Pain, fell face first; Additional info: Facial trauma from syncopal episode TECHNIQUE: Imaging protocol: Computed tomography images of the cervical spine without contrast. Radiation optimization: All CT scans at this facility use at least one of these dose optimization techniques: automated exposure control; mA and/or kV adjustment per patient size (includes targeted exams where dose is matched to clinical indication); or iterative reconstruction. COMPARISON: No relevant prior studies available. FINDINGS: Bones/joints: No acute fracture. Normal alignment. Discs/Spinal canal/Neural foramina: No spinal stenosis. Lungs: Lung apices are normal. Soft tissues: Unremarkable. IMPRESSION: No acute fracture or dislocation. Thank you for allowing us to participate in the care of your patient. Dictated and Authenticated by: Henrry Angel MD 07/27/2020 1:14 AM Central Time ([place] & [place]) Max/Face/Sinus CT wo contrast: PROCEDURE INFORMATION: Exam: CT Maxillofacial Without Contrast Exam date and time: 07/27/2020 12:22 AM Age: 44 years old Clinical indication: Other: Pain, fell face first; Additional info: Facial trauma from syncopal episode TECHNIQUE: Imaging protocol: Computed tomography images of the face without contrast. Radiation optimization: All CT scans at this facility use at least one of these dose optimization techniques: automated exposure control; mA and/or kV adjustment per patient size (includes targeted exams where dose is matched to clinical indication); or iterative reconstruction. COMPARISON: CT Head wo Cont 02/02/2020 1:39 AM FINDINGS: Orbital cavity: Orbits are normal. Globes are unremarkable. Bones/joints: Comminuted nasal bone fracture. Right medial orbital wall fracture. There is right periorbital soft tissue swelling and emphysema. Paranasal sinuses: Normal. No air-fluid levels. Soft tissues: See "Bones/joints" finding. IMPRESSION: Comminuted nasal bone fracture and medial right orbital wall fracture. Thank you for allowing us to participate in the care of your patient. Dictated and Authenticated by: Henrry Angel MD 07/27/2020 1:16 AM Central Time ([place] & [place]) See rad report - Re-Assessments/Exams Free Text/Narrative Re-Assessment/Exam: 07/27/20 02:05 Discussed patient case with Dr. Ng who agreed to accept the patient for observation admission. Departure - Departure Time of Disposition: 01:47 Disposition: Refer to Observation Condition: Fair Clinical Impression: Fracture of medial orbital wall, right side, initial encounter for open fracture Episode of syncope Qualifiers: Syncope type: unspecified Qualified Code(s): R55 - Syncope and collapse Nasal bone fracture Qualifiers: Encounter type: initial encounter Fracture type: open Qualified Code(s): S02.2XXB - Fracture of nasal bones, initial encounter for open fracture - Discharge Information *PRESCRIPTION DRUG MONITORING PROGRAM REVIEWED*: No *COPY OF PRESCRIPTION DRUG MONITORING REPORT IN PATIENT MAURICIO: No Sepsis Event Note (ED) - Evaluation Sepsis Screening Result: No Definite Risk - Focused Exam Vital Signs: Vital Signs Temp Pulse Resp BP Pulse Ox 07/26/20 23:28 96.4 F L 109 H 19 135/72 98 - My Orders Last 24 Hours: My Active Orders 07/26/20 23:59 EKG Documentation Completion [RC] STAT Blood Culture x2 Reflex Set [OM.PC] Stat 07/27/20 00:04 Vaccines to be Administered [RC] PER UNIT ROUTINE 07/27/20 00:40 CULTURE BLOOD [BC] Stat 07/27/20 00:45 CULTURE BLOOD [BC] Stat 07/27/20 01:12 REFLEX LACTIC ACID YES OR NO [CHEM] Routine 07/27/20 01:42 COVID-19/FLU A+B [MOLEC] Stat - Assessment/Plan Last 24 Hours: My Active Orders 07/26/20 23:59 EKG Documentation Completion [RC] STAT Blood Culture x2 Reflex Set [OM.PC] Stat 07/27/20 00:04 Vaccines to be Administered [RC] PER UNIT ROUTINE 07/27/20 00:40 CULTURE BLOOD [BC] Stat 07/27/20 00:45 CULTURE BLOOD [BC] Stat 07/27/20 01:12 REFLEX LACTIC ACID YES OR NO [CHEM] Routine 07/27/20 01:42 COVID-19/FLU A+B [MOLEC] Stat
[2020-07-27 01:10] LABS: ANION GAP 15.7 mEq/L (7-13); CHLORIDE,CL 105 mmol/L (98-107); SODIUM,NA 142 mmol/L (136-145)
--- NOTE | 2020-07-27 01:14 | CT ---
PROCEDURE INFORMATION: Exam: CT Cervical Spine Without Contrast Exam date and time: 07/27/2020 12:22 AM Age: 44 years old Clinical indication: Other: Pain, fell face first; Additional info: Facial trauma from syncopal episode TECHNIQUE: Imaging protocol: Computed tomography images of the cervical spine without contrast. Radiation optimization: All CT scans at this facility use at least one of these dose optimization techniques: automated exposure control; mA and/or kV adjustment per patient size (includes targeted exams where dose is matched to clinical indication); or iterative reconstruction. COMPARISON: No relevant prior studies available. FINDINGS: Bones/joints: No acute fracture. Normal alignment. Discs/Spinal canal/Neural foramina: No spinal stenosis. Lungs: Lung apices are normal. Soft tissues: Unremarkable. IMPRESSION: No acute fracture or dislocation.
--- NOTE | 2020-07-27 01:16 | CT ---
PROCEDURE INFORMATION: Exam: CT Maxillofacial Without Contrast Exam date and time: 07/27/2020 12:22 AM Age: 44 years old Clinical indication: Other: Pain, fell face first; Additional info: Facial trauma from syncopal episode TECHNIQUE: Imaging protocol: Computed tomography images of the face without contrast. Radiation optimization: All CT scans at this facility use at least one of these dose optimization techniques: automated exposure control; mA and/or kV adjustment per patient size (includes targeted exams where dose is matched to clinical indication); or iterative reconstruction. COMPARISON: CT Head wo Cont 02/02/2020 1:39 AM FINDINGS: Orbital cavity: Orbits are normal. Globes are unremarkable. Bones/joints: Comminuted nasal bone fracture. Right medial orbital wall fracture. There is right periorbital soft tissue swelling and emphysema. Paranasal sinuses: Normal. No air-fluid levels. Soft tissues: See "Bones/joints" finding. IMPRESSION: Comminuted nasal bone fracture and medial right orbital wall fracture.
--- NOTE | 2020-07-27 01:17 | CT ---
PROCEDURE INFORMATION: Exam: CT Head Without Contrast Exam date and time: 07/27/2020 12:22 AM Age: 44 years old Clinical indication: Other: Fell face first/pain; Additional info: Syncopal episode, facial trauma TECHNIQUE: Imaging protocol: Computed tomography of the head without contrast. Radiation optimization: All CT scans at this facility use at least one of these dose optimization techniques: automated exposure control; mA and/or kV adjustment per patient size (includes targeted exams where dose is matched to clinical indication); or iterative reconstruction. COMPARISON: CT Head wo Cont 02/02/2020 1:39 AM FINDINGS: Brain: No acute hemorrhage. Unremarkable white matter. No mass effect. Cerebral ventricles: No ventriculomegaly. Bones/joints: Bony calvarium is intact. Mastoid air cells: Visualized mastoid air cells are well aerated. Soft tissues: Unremarkable. IMPRESSION: No acute intracranial process. Maxillofacial fractures are described separately in same-day maxillofacial CT report
[2020-07-27] MEDS ORDERED: Ondansetron 4 MG/2 ML SDV IVPUSH PRN (02:17)
[2020-07-27] MEDS ORDERED: Acetaminophen 325 MG Tab PO PRN (02:17)
[2020-07-27] MEDS ORDERED: Sodium Chloride 0.9% 1,000 ML IV SCH (02:30)
[2020-07-27] MEDS ORDERED: Ampicillin/Sulbactam Na 1.5 GM in Sodium Chloride 0.9% 100 ML IV ONE (02:33)
[2020-07-27] MEDS ORDERED: 50% Dextrose in Water 50 ML Syringe IV PRN (02:36)
[2020-07-27] MEDS ORDERED: Glucagon,Human Recombinant 1 MG Vial IM PRN (02:36)
[2020-07-27 02:45] LABS: CORONAVIRUS COVID-19 NAA NEGATIVE (NEGATIVE)
[2020-07-27] MEDS: Sodium Chloride 0.9% 1,000 ML IV SCH ×3 (02:49→22:43)
[2020-07-27 08:28] LABS: ANION GAP 13.2 mEq/L (7-13); CHLORIDE,CL 107 mmol/L (98-107); SODIUM,NA 142 mmol/L (136-145)
[2020-07-27] MEDS ORDERED: Non-Formulary Medication 1 Each (Mirabegron [Myrbetriq] 25 MG Tab.Er) PO SCH (09:00)
[2020-07-27] MEDS ORDERED: Benzocaine/Cetylpyridinium/Menthol Lozenge MUCMEM PRN (11:12)
--- NOTE | 2020-07-27 11:24 | PCM.HP ---
H&P History of Present Illness - General Date of Service: 07/27/20 Admit Problem/Dx: Admission Diagnosis/Problem Admission Diagnosis/Problem Syncope - History of Present Illness Initial Comments - Free Text/Narative: 44F w/ pmh DM2, obesity, CLAUDINE, COVID19 in 01/2020, numerous episodes of sepsis due to diabetic infections, most recently w/ MRSA right shoulder infection now on senior care abx (s/p 2 weeks of vanco and now on week 1 of dapto) p/w syncope and facial trauma. Pt c/o 3 days of dizziness, feeling unwell. She also has chronic dyspnea on exertion since COVID19. Past 3 days shes been having trouble getting around due to weakness and lightheadedness. Denies vertigo. Today additionally she helped prepare and clean up after grand son's B-day constitution party. Subsequently felt really lightheaded and laid down. Doesnt remember waking up and walking but must've because she was found down in the bathroom having fallen and hit her face. ER evaluation found Nose Pain Score (Numeric/FACES): 6 Back Pain Score (Numeric/FACES): 6 - Related Data Allergies/Adverse Reactions: Allergies Allergy/AdvReac Type Severity Reaction Status Date / Time No Known Allergies Allergy Verified 04/03/20 05:34 Home Medications: Home Meds Pantoprazole [Pantoprazole Sodium] 40 mg PO BID 09/13/14 [History] rOPINIRole [Requip] 0.25 mg PO BEDTIME 08/13/15 [History] cycloSPORINE [Restasis] 1 drop EYEBOTH BID 04/14/16 [History] Bumetanide [Bumex] 1 mg PO DAILY 04/24/18 [History] metFORMIN HCl [Metformin HCl] 1,000 mg PO BIDMEALS 04/24/18 [History] Insulin Aspart [NovoLOG] 10 unit SQ TIDMEALS 10/31/18 [History] Insulin Glargine,Hum.Rec.Anlog [Basaglar Kwikpen U-100] 30 unit SQ QPM 10/31/18 [History] Mirabegron [Myrbetriq] 25 mg PO DAILY 10/31/18 [History] Pregabalin [Lyrica] 150 mg PO BID 10/31/18 [History] Rosuvastatin Calcium 20 mg PO DAILY 12/01/19 [History] predniSONE 10 mg PO DAILY 12/01/19 [History] DULoxetine [Cymbalta] 30 mg PO DAILY 02/06/20 [History] Oxybutynin Chloride [Ditropan Xl] 10 mg PO DAILY 02/06/20 [History] azaTHIOprine [Azathioprine] 50 mg PO DAILY 02/06/20 [History] buPROPion [buPROPion XL] 150 mg PO DAILY 02/06/20 [History] dexAMETHasone [Decadron] 6 mg PO DAILY 02/06/20 [History] oxyCODONE HCl/Acetaminophen [Endocet 5-325 Tablet] 1 tab PO Q6H PRN 02/06/20 [History] riTUXimab [Rituxan] 375 mg IV ASDIRECTED 02/06/20 [History] Ergocalciferol (Vitamin D2) [Vitamin D2] 1.25 mg PO WEEKLY 07/27/20 [History] Patient's Own Medication [Ptom] 700 mg IV .Q24 07/27/20 [History] Pilocarpine HCl [Salagen] 5 mg PO TID 07/27/20 [History] Sulfamethoxazole/Trimethoprim [Sulfamethoxazole-Tmp Ds Tablet] 1 each PO .3XWEEK 07/27/20 [History] Past Medical History - Past Health History Medical/Surgical History: Denies Medical/Surgical History HEENT History: Reports: Cataract, Hard of Hearing, Impaired Vision, Other (See Below) Other HEENT History: wears glasses Cardiovascular History: Reports: Hypertension, SOB on Exertion Respiratory History: Reports: Bronchitis, Recurrent, Sleep Apnea, SOB Gastrointestinal History: Reports: Gastritis, Other (See Below) Other Gastrointestinal History: chronic stomach pains. 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 OSTEOMELITIS OF RIGHT FOOT, healed 05/10/17 Neurological History: Reports: Other (See Below) Other Neuro History: SOMNOLENCE, DAYTIME, nerve damage to back and legs Psychiatric History: Reports: Anxiety, Eating Disorders Endocrine/Metabolic History: Reports: Diabetes, Type II, IDDM, Obesity/BMI 30+, Vitamin D Deficiency Hematologic History: Reports: Iron Deficiency, Other (See Below) Other Hematologic History: HX OF SEPSIS. HX OF MRSA INFECTION Immunologic History: Reports: Immunosuppression, Other (See Below) Other Immunologic History: RA and Lupus Oncologic (Cancer) History: Reports: None Dermatologic History: Reports: Cellulitis, Other (See Below) Other Dermatologic History: hx of mrsa. HX OF SKIN ULCERS OF FOOT, BILAT. DIABETIC SKIN ULCERS. CELLULITIS OF L ANTERIOR LOWER LEG. BIOPSY OF SKIN LESION - Infectious Disease History Infectious Disease History: Reports: Influenza, MRSA, Novel Coronavirus, Shingles Other Infectious Disease History: CELLULITIS - Past Surgical History Head Surgeries/Procedures: Reports: None HEENT Surgical History: Reports: Cataract Surgery Other HEENT Surgeries/Procedures: BILAT CATARACT EXTRACTION WITH LENS PLACEMENT Cardiovascular Surgical History: Reports: None Respiratory Surgical History: Reports: None GI Surgical History: Reports: None Other GI Surgeries/Procedures: pt states "to remove infection in my stomach". I & D OF ABDOMINAL ABSCESS Female Surgical History: Reports: Other (See Below) Other Female Surgeries/Procedures: cyst on her left kidney Endocrine Surgical History: Reports: None Neurological Surgical History: Reports: None Musculoskeletal Surgical History: Reports: Amputation, Other (See Below) Other Musculoskeletal Surgeries/Procedures:: right toe ampulation Oncologic Surgical History: Reports: None Dermatological Surgical History: Reports: Other (See Below) Social & Family History - Family History Family Medical History: No Pertinent Family History HEENT: Reports: None Cardiac: Reports: None Respiratory: Reports: None GI: Reports: None : Reports: None OBGYN: Reports: None Musculoskeletal: Reports: RA Neurological: Reports: None Psychiatric: Reports: Depression Endocrine/Metabolic: Reports: Diabetes, type II Hematologic: Reports: None Immunologic: Reports: None Dermatologic: Reports: None Oncologic: Reports: None - Tobacco Use Tobacco Use Status *Q: Former Tobacco User Years of Tobacco use: 10 Packs/Tins Daily: 0.1 Used Tobacco, but Quit: Yes Month/Year Tobacco Last Used: 1999 Second Hand Smoke Exposure: No - Caffeine Use Caffeine Use: Reports: Coffee, Soda Other Caffeine Use: 16oz daily Caffeine Use Comment: 3/day - Recreational Drug Use Recreational Drug Use: No - Living Situation & Occupation Living situation: Reports: with Family H&P Review of Systems - Review of Systems: Review Of Systems: See Below General: Reports: Malaise, Weakness. Denies: Fever, Chills, Night Sweats, Diaphoresis, Weight Loss HEENT: Reports: Other (face pain) Pulmonary: Reports: Shortness of Breath Cardiovascular: Reports: Palpitations, Dyspnea on Exertion, Syncope. Denies: Chest Pain, Edema Gastrointestinal: Reports: Abdominal Pain (on / off - chronic) Genitourinary: Denies: Dysuria Musculoskeletal: Reports: Shoulder Pain (right - chronic) Skin: Denies: Jaundice Psychiatric: Reports: Depression Neurological: Reports: Dizziness Exam - Exam Exam: See Below - Vital Signs Vital Signs: Last Vital Signs Temp 96.3 F L 07/27/20 08:05 Pulse 96 07/27/20 08:05 Resp 20 07/27/20 08:05 BP 113/67 07/27/20 08:05 Pulse Ox 99 07/27/20 08:05 Orthostatic Blood Pressure [ 127/64 Standing] Orthostatic Blood Pressure [ 130/81 Sitting] Orthostatic Blood Pressure [ 130/60 Supine] Weight: 257 lb 3.2 oz - Exam Quality Assessment: No: Supplemental Oxygen General: Alert, Oriented HEENT: Other (tiny R subconjuctival hemmorghage, periorbital ecchymosis, full ROM right orbit, 1 cm laceration to nose bridge, mildly deformed nose bridge) Lungs: Clear to Auscultation, Normal Respiratory Effort Cardiovascular: Regular Rhythm, Tachycardia GI/Abdominal Exam: Normal Bowel Sounds, Soft, Non-Tender, No Distention Back Exam: CVA Tenderness (L), CVA Tenderness (R) Extremities: No Pedal Edema Skin: Warm, Dry, Intact Neurological: Cranial Nerves Intact Neuro Extensive - Mental Status: Alert, Oriented x3, Normal Mood/Affect Psychiatric: Alert, Normal Affect, Normal Mood Physical Exam Comments:: reports normal visual acuity right eye - Patient Data Lab Results Last 24 hrs: Laboratory Results - last 24 hr 07/27/20 07/27/20 07/27/20 Range/Units 00:40 00:40 00:40 WBC 9.0 (5.0-10.0) 10^3/uL RBC 3.80 L (4.2-5.4) 10^6/uL Hgb 10.5 L D (12.0-16.0) g/dL Hct 35.5 L (37.0-47.0) % MCV 93.4 (80-100) fL MCH 27.6 (27.0-34.0) pg MCHC 29.6 L (33.0-35.0) g/dL Plt Count 333 D (150-450) 10^3/uL Neut % (Auto) 74.6 (42.2-75.2) % Lymph % (Auto) 15.1 L (20.5-50.1) % [place] % (Auto) 9.8 H (2-8) % Eos % (Auto) 0.2 L (1.0-3.0) % Baso % (Auto) 0.3 (0.0-1.0) % Sodium 142 (136-145) mmol/L Potassium 4.7 (3.5-5.1) mmol/L Chloride 105 (98-107) mmol/L Carbon Dioxide 26 (21-32) mmol/L Anion Gap 15.7 H (7-13) mEq/L BUN 15 (7-18) mg/dL Creatinine 2.39 H (0.55-1.02) mg/dL Est Cr Clr Drug Dosing 28.91 mL/min Estimated GFR (MDRD) 22 BUN/Creatinine Ratio 6.3 (No establ ref range) Glucose 265 H (70-99) mg/dL POC Glucose (70-99) mg/dL Hemoglobin A1c (<5.7) % Lactic Acid 2.3 H* (0.4-2.0) mmol/L Calcium 8.5 (8.5-10.1) mg/dL Total Bilirubin 0.2 (0.2-1.0) mg/dL AST 24 (15-37) U/L ALT 16 (14-59) U/L Alkaline Phosphatase 76 (46-116) U/L Troponin I < 0.017 (0.000-0.056) ng/mL C-Reactive Protein 1.3 H (0.0-0.9) mg/dL Total Protein 7.2 (6.4-8.2) g/dL Albumin 3.3 L (3.4-5.0) g/dL Globulin 3.9 Albumin/Globulin Ratio 0.85 Urine Color (YELLOW) Urine Appearance (CLEAR) Urine pH (5.0-9.0) Ur Specific [place] (1.005-1.030) Urine Protein (NEGATIVE) Urine Glucose (UA) (NEGATIVE) Urine Ketones (NEGATIVE) Urine Occult Blood (NEGATIVE) Urine Nitrite (NEGATIVE) Urine Bilirubin (NEGATIVE) Urine Urobilinogen (0.2-1.0) mg/dL Ur Leukocyte Esterase (NEGATIVE) Urine RBC /HPF Urine WBC (0-5/HPF) /HPF Ur Epithelial Cells (NOT SEEN) /HPF Urine Bacteria (0-FEW/HPF) /HPF Fine Granular Casts (NOT SEEN) /LPF Urine HCG, Qual Urine Opiates Screen (NEGATIVE) Ur Oxycodone Screen (NEGATIVE) Urine Methadone Screen (NEGATIVE) Ur Barbiturates Screen (NEGATIVE) U Tricyclic Antidepress (NEGATIVE) Ur Phencyclidine Scrn (NEGATIVE) Ur Amphetamine Screen (NEGATIVE) U Methamphetamines Scrn (NEGATIVE) Urine MDMA Screen (NEGATIVE) U Benzodiazepines Scrn (NEGATIVE) Urine Cocaine Screen (NEGATIVE) U Marijuana (THC) Screen (NEGATIVE) Ethyl Alcohol < 3 (0) mg/dL Influenza Type A RNA (NEGATIVE) Influenza Type B RNA (NEGATIVE) SARS-CoV-2 RNA (DIVYA) (NEGATIVE) 07/27/20 07/27/20 07/27/20 Range/Units 01:40 01:40 01:40 WBC (5.0-10.0) 10^3/uL RBC (4.2-5.4) 10^6/uL Hgb (12.0-16.0) g/dL Hct (37.0-47.0) % MCV (80-100) fL MCH (27.0-34.0) pg MCHC (33.0-35.0) g/dL Plt Count (150-450) 10^3/uL Neut % (Auto) (42.2-75.2) % Lymph % (Auto) (20.5-50.1) % [place] % (Auto) (2-8) % Eos % (Auto) (1.0-3.0) % Baso % (Auto) (0.0-1.0) % Sodium (136-145) mmol/L Potassium (3.5-5.1) mmol/L Chloride (98-107) mmol/L Carbon Dioxide (21-32) mmol/L Anion Gap (7-13) mEq/L BUN (7-18) mg/dL Creatinine (0.55-1.02) mg/dL Est Cr Clr Drug Dosing mL/min Estimated GFR (MDRD) BUN/Creatinine Ratio (No establ ref range) Glucose (70-99) mg/dL POC Glucose (70-99) mg/dL Hemoglobin A1c (<5.7) % Lactic Acid (0.4-2.0) mmol/L Calcium (8.5-10.1) mg/dL Total Bilirubin (0.2-1.0) mg/dL AST (15-37) U/L ALT (14-59) U/L Alkaline Phosphatase (46-116) U/L Troponin I (0.000-0.056) ng/mL C-Reactive Protein (0.0-0.9) mg/dL Total Protein (6.4-8.2) g/dL Albumin (3.4-5.0) g/dL Globulin Albumin/Globulin Ratio Urine Color Yellow (YELLOW) Urine Appearance Slightly cloudy (CLEAR) Urine pH 5.5 (5.0-9.0) Ur Specific [place] >= 1.030 (1.005-1.030) Urine Protein >=300 H (NEGATIVE) Urine Glucose (UA) 100 H (NEGATIVE) Urine Ketones Trace H (NEGATIVE) Urine Occult Blood Trace-intact H (NEGATIVE) Urine Nitrite Negative (NEGATIVE) Urine Bilirubin Negative (NEGATIVE) Urine Urobilinogen 0.2 (0.2-1.0) mg/dL Ur Leukocyte Esterase Negative (NEGATIVE) Urine RBC 0-5 /HPF Urine WBC 5-10 H (0-5/HPF) /HPF Ur Epithelial Cells Moderate H (NOT SEEN) /HPF Urine Bacteria Many H (0-FEW/HPF) /HPF Fine Granular Casts Few H (NOT SEEN) /LPF Urine HCG, Qual Negative Urine Opiates Screen Positive H (NEGATIVE) Ur Oxycodone Screen Positive H (NEGATIVE) Urine Methadone Screen Negative (NEGATIVE) Ur Barbiturates Screen Negative (NEGATIVE) U Tricyclic Antidepress Negative (NEGATIVE) Ur Phencyclidine Scrn Negative (NEGATIVE) Ur Amphetamine Screen Negative (NEGATIVE) U Methamphetamines Scrn Negative (NEGATIVE) Urine MDMA Screen Negative (NEGATIVE) U Benzodiazepines Scrn Negative (NEGATIVE) Urine Cocaine Screen Negative (NEGATIVE) U Marijuana (THC) Screen Negative (NEGATIVE) Ethyl Alcohol (0) mg/dL Influenza Type A RNA (NEGATIVE) Influenza Type B RNA (NEGATIVE) SARS-CoV-2 RNA (DIVYA) (NEGATIVE) 07/27/20 07/27/20 07/27/20 Range/Units 01:42 04:35 08:00 WBC (5.0-10.0) 10^3/uL RBC (4.2-5.4) 10^6/uL Hgb (12.0-16.0) g/dL Hct (37.0-47.0) % MCV (80-100) fL MCH (27.0-34.0) pg MCHC (33.0-35.0) g/dL Plt Count (150-450) 10^3/uL Neut % (Auto) (42.2-75.2) % Lymph % (Auto) (20.5-50.1) % [place] % (Auto) (2-8) % Eos % (Auto) (1.0-3.0) % Baso % (Auto) (0.0-1.0) % Sodium 142 (136-145) mmol/L Potassium 4.2 (3.5-5.1) mmol/L Chloride 107 (98-107) mmol/L Carbon Dioxide 26 (21-32) mmol/L Anion Gap 13.2 H (7-13) mEq/L BUN 17 (7-18) mg/dL Creatinine 2.28 H (0.55-1.02) mg/dL Est Cr Clr Drug Dosing 30.30 mL/min Estimated GFR (MDRD) 23 BUN/Creatinine Ratio (No establ ref range) Glucose 113 H (70-99) mg/dL POC Glucose (70-99) mg/dL Hemoglobin A1c (<5.7) % Lactic Acid 1.4 (0.4-2.0) mmol/L Calcium 7.8 L (8.5-10.1) mg/dL Total Bilirubin (0.2-1.0) mg/dL AST (15-37) U/L ALT (14-59) U/L Alkaline Phosphatase (46-116) U/L Troponin I < 0.017 (0.000-0.056) ng/mL C-Reactive Protein (0.0-0.9) mg/dL Total Protein (6.4-8.2) g/dL Albumin (3.4-5.0) g/dL Globulin Albumin/Globulin Ratio Urine Color (YELLOW) Urine Appearance (CLEAR) Urine pH (5.0-9.0) Ur Specific [place] (1.005-1.030) Urine Protein (NEGATIVE) Urine Glucose (UA) (NEGATIVE) Urine Ketones (NEGATIVE) Urine Occult Blood (NEGATIVE) Urine Nitrite (NEGATIVE) Urine Bilirubin (NEGATIVE) Urine Urobilinogen (0.2-1.0) mg/dL Ur Leukocyte Esterase (NEGATIVE) Urine RBC /HPF Urine WBC (0-5/HPF) /HPF Ur Epithelial Cells (NOT SEEN) /HPF Urine Bacteria (0-FEW/HPF) /HPF Fine Granular Casts (NOT SEEN) /LPF Urine HCG, Qual Urine Opiates Screen (NEGATIVE) Ur Oxycodone Screen (NEGATIVE) Urine Methadone Screen (NEGATIVE) Ur Barbiturates Screen (NEGATIVE) U Tricyclic Antidepress (NEGATIVE) Ur Phencyclidine Scrn (NEGATIVE) Ur Amphetamine Screen (NEGATIVE) U Methamphetamines Scrn (NEGATIVE) Urine MDMA Screen (NEGATIVE) U Benzodiazepines Scrn (NEGATIVE) Urine Cocaine Screen (NEGATIVE) U Marijuana (THC) Screen (NEGATIVE) Ethyl Alcohol (0) mg/dL Influenza Type A RNA Negative (NEGATIVE) Influenza Type B RNA Negative (NEGATIVE) SARS-CoV-2 RNA (DIVYA) Negative (NEGATIVE) 07/27/20 07/27/20 Range/Units 08:00 08:16 WBC (5.0-10.0) 10^3/uL RBC (4.2-5.4) 10^6/uL Hgb (12.0-16.0) g/dL Hct (37.0-47.0) % MCV (80-100) fL MCH (27.0-34.0) pg MCHC (33.0-35.0) g/dL Plt Count (150-450) 10^3/uL Neut % (Auto) (42.2-75.2) % Lymph % (Auto) (20.5-50.1) % [place] % (Auto) (2-8) % Eos % (Auto) (1.0-3.0) % Baso % (Auto) (0.0-1.0) % Sodium (136-145) mmol/L Potassium (3.5-5.1) mmol/L Chloride (98-107) mmol/L Carbon Dioxide (21-32) mmol/L Anion Gap (7-13) mEq/L BUN (7-18) mg/dL Creatinine (0.55-1.02) mg/dL Est Cr Clr Drug Dosing mL/min Estimated GFR (MDRD) BUN/Creatinine Ratio (No establ ref range) Glucose (70-99) mg/dL POC Glucose 115 H (70-99) mg/dL Hemoglobin A1c 9.0 H (<5.7) % Lactic Acid (0.4-2.0) mmol/L Calcium (8.5-10.1) mg/dL Total Bilirubin (0.2-1.0) mg/dL AST (15-37) U/L ALT (14-59) U/L Alkaline Phosphatase (46-116) U/L Troponin I (0.000-0.056) ng/mL C-Reactive Protein (0.0-0.9) mg/dL Total Protein (6.4-8.2) g/dL Albumin (3.4-5.0) g/dL Globulin Albumin/Globulin Ratio Urine Color (YELLOW) Urine Appearance (CLEAR) Urine pH (5.0-9.0) Ur Specific [place] (1.005-1.030) Urine Protein (NEGATIVE) Urine Glucose (UA) (NEGATIVE) Urine Ketones (NEGATIVE) Urine Occult Blood (NEGATIVE) Urine Nitrite (NEGATIVE) Urine Bilirubin (NEGATIVE) Urine Urobilinogen (0.2-1.0) mg/dL Ur Leukocyte Esterase (NEGATIVE) Urine RBC /HPF Urine WBC (0-5/HPF) /HPF Ur Epithelial Cells (NOT SEEN) /HPF Urine Bacteria (0-FEW/HPF) /HPF Fine Granular Casts (NOT SEEN) /LPF Urine HCG, Qual Urine Opiates Screen (NEGATIVE) Ur Oxycodone Screen (NEGATIVE) Urine Methadone Screen (NEGATIVE) Ur Barbiturates Screen (NEGATIVE) U Tricyclic Antidepress (NEGATIVE) Ur Phencyclidine Scrn (NEGATIVE) Ur Amphetamine Screen (NEGATIVE) U Methamphetamines Scrn (NEGATIVE) Urine MDMA Screen (NEGATIVE) U Benzodiazepines Scrn (NEGATIVE) Urine Cocaine Screen (NEGATIVE) U Marijuana (THC) Screen (NEGATIVE) Ethyl Alcohol (0) mg/dL Influenza Type A RNA (NEGATIVE) Influenza Type B RNA (NEGATIVE) SARS-CoV-2 RNA (DIVYA) (NEGATIVE) Result Diagrams: 07/27/20 00:40 07/27/20 08:00 Qasim Results Last 24 hrs: Microbiology 07/27/20 00:40 Anaerobic Blood Culture - Final Blood - Arm, Right 07/27/20 00:45 Anaerobic Blood Culture - Final Blood - Arm, Right *Q Meaningful Use (ADM) - VTE *Q VTE Anticoagulation Contraindications: Medical/Procedure Contrai Problem List Initiated/Reviewed/Updated: Yes Orders Last 24hrs: Active Orders 24 hr Category Date Time Status Admission Diagnosis [ADT] Stat ADT 07/27/20 01:44 Ordered Admission Status [Patient Status] [ADT] Routine ADT 07/27/20 01:44 Active Patient Status [ADT] Routine ADT 07/27/20 02:17 Active Antiembolic Devices [RC] , Care 07/27/20 02:18 Active Blood Glucose Check, Bedside [RC] WITHMEALSANDBED Care 07/27/20 02:36 Active Cardiac Monitoring [RC] 08, Care 07/27/20 02:17 Active Orthostatic Vital Signs [RC] ASDIRECTED Care 07/27/20 02:33 Active Oxygen Therapy [RC] PRN Care 07/27/20 02:17 Active Up With Assistance [RC] ASDIRECTED Care 07/27/20 02:17 Active VTE/DVT Education [RC] PER UNIT ROUTINE Care 07/27/20 02:17 Active Vital Signs [RC] 00,04,18,12,16,20 Care 07/27/20 02:17 Active Consistent Carbohydrate Diet [DIET] Diet 07/27/20 Breakfast Active Abdomen Ltd [US] Routine Exams 07/27/20 09:01 Stop Req Retroperitoneal Comp [US] Routine Exams 07/27/20 11:06 Ordered CULTURE BLOOD [BC] Stat Lab 07/27/20 00:40 Results CULTURE BLOOD [BC] Stat Lab 07/27/20 00:45 Results Acetaminophen [TylenoL] Med 07/27/20 02:17 Active 650 mg PO Q4H PRN Ampicillin/Sulbactam Na [Unasyn] 3 gm Med 07/27/20 12:00 Active Sodium Chloride 0.9% [Normal Saline] 100 ml IV Q6HR Benzocaine/Cetylpyrd/Menthol [Cepacol Sore Throat] Med 07/27/20 11:12 Ordered 1 lozenge MUCMEM Q2H PRN DULoxetine [Cymbalta] Med 07/27/20 09:00 Pending 30 mg PO DAILY Dextrose 50% in Water Med 07/27/20 02:36 Active 50 ml IV Q15M PRN Glucagon,Human Recombinant [GlucaGen] Med 07/27/20 02:36 Active 1 mg IM Q15M PRN Insulin Lispro [HumaLOG] Med 07/27/20 08:00 Active See Protocol SUBCUT WITHMEALSANDBED Mirabegron [Myrbetriq] Med 07/27/20 09:00 Ordered 25 mg PO DAILY Ondansetron [Zofran] Med 07/27/20 02:17 Active 4 mg IVPUSH Q4H PRN Pantoprazole [Pantoprazole Sodium] Med 07/27/20 09:00 Ordered 40 mg PO BID Pilocarpine HCl [Salagen] Med 07/27/20 09:00 Ordered 5 mg PO TID Sodium Chloride 0.9% [Normal Saline] 1,000 ml Med 07/27/20 02:30 Active IV .BOLUS Sodium Chloride 0.9% [Normal Saline] 1,000 ml Med 07/27/20 02:30 Active IV ASDIRECTED Sulfamethoxazole/Trimethoprim [Septra DS] Med 07/27/20 08:00 Ordered DOSE tab PO .3XWEEK oxyCODONE Med 07/27/20 02:17 Active 5 mg PO Q4H PRN predniSONE Med 07/27/20 10:00 Active 10 mg PO DAILY Anticoagulation Contraindications VTE [AST] Per Unit Oth 07/27/20 02:17 Ord ered Routine Antiembolic Hose [OM.PC] Per Unit Routine Oth 07/27/20 02:17 Ordered Blood Culture x2 Reflex Set [OM.PC] Stat Oth 07/26/20 23:59 Ordered Resuscitation Status Routine Resus Stat 07/27/20 02:17 Ordered Medication Orders Acetaminophen (Acetaminophen 325 Mg Tab) 650 mg PO Q4H PRN PRN Reason: Pain (Mild 1-3)/fever Benzocaine/Menthol (Benzocaine/Cetylpyridinium/Menthol Lozenge) 1 lozenge MUCMEM Q2H PRN PRN Reason: Sore Throat Dextrose/Water (50% Dextrose In Water 50 Ml Syringe) 50 ml IV Q15M PRN PRN Reason: Hypoglycemia Duloxetine HCl (Duloxetine 30 Mg Cap) 30 mg PO DAILY [facility] Glucagon (Glucagon,Human Recombinant 1 Mg Vial) 1 mg IM Q15M PRN PRN Reason: Hypoglycemia Sodium Chloride (Normal Saline) 1,000 mls @ 999 mls/hr IV .BOLUS [facility] Last Admin: 07/27/20 03:30 Dose: 999 mls/hr Documented by: VARGAS Sodium Chloride (Normal Saline) 1,000 mls @ 125 mls/hr IV ASDIRECTED [facility] Last Admin: 07/27/20 02:49 Dose: 125 mls/hr Documented by: VARGAS Ampicillin Sodium/Sulbactam (Sodium 3 gm/ Sodium Chloride) 100 mls @ 100 mls/hr IV Q6HR [facility] Insulin Human Lispro (Insulin Lispro 100 Units/Ml 3 Ml Vial) 0 unit SUBCUT WITHMEALSANDBED NELLY; Protocol Non-Formulary Medication (Pantoprazole [Pantoprazole Sodium]) 40 mg PO BID [facility] Non-Formulary Medication (Pilocarpine Hcl [Salagen]) 5 mg PO TID [facility] Non-Formulary Medication (Mirabegron [Myrbetriq]) 25 mg PO DAILY [facility] Ondansetron HCl (Ondansetron 4 Mg/2 Ml Sdv) 4 mg IVPUSH Q4H PRN PRN Reason: Nausea/Vomiting Oxycodone HCl (Oxycodone 5 Mg Tab) 5 mg PO Q4H PRN PRN Reason: Pain (moderate 4-6) Prednisone (Prednisone 10 Mg Tab) 10 mg PO DAILY [facility] Trimethoprim/Sulfamethoxazole (Sulfamethoxazole/Trimethoprim 800-160 Mg Tab) tab PO .3XWEEK [facility] Assessment/Plan Comment:: #right medial orbital fxt / comminuted, open nasal fxt - unasyn for ppx abx - d/w Dr Teresa Zhang [facility] ENT and he has reviewed imaging - his office will f/up w/ pt to set up appointment next week - pt's cell phone number confirmed and provided - only rec was to tell pt not to blow her nose #syncope - orthostatic - appears dry on exam - Cr increased from baseline - hold bumex today and hydrate - monitor on tele for 24h and cycle trops #RODRI - as above #DM2 - hold metformin due to RODRI #MRSA right shoulder infection - pharmacy to review dapto dosing given RODRI PPX - SCDs only given head trauma
[2020-07-27] MEDS: Insulin Lispro 100 Units/ML 3 ML Vial SUBCUT SCH ×4 (11:40→21:26)
[2020-07-27] MEDS: Ampicillin/Sulbactam Na 3 GM in Sodium Chloride 0.9% 100 ML IV SCH ×3 (12:39→23:54)
[2020-07-27] MEDS: predniSONE 10 MG Tab PO SCH (12:42)
--- NOTE | 2020-07-27 13:29 | US ---
EXAMINATION: Retroperitoneal Comp SEX: Female AGE: 44 years CLINICAL HISTORY: 44-year-old female with abnormally elevated serum creatinine. Rule out obstructive uropathy or other renal abnormality. Interpretation: Negative exam. 1. Symmetric normal reniform size, axis, configuration. Smooth cortical surface and symmetric renal cortical "mantle". 2. No hypoechoic cystic or echogenic solid renal cortical mass lesion. 3. No echogenic "shadowing" renal calcifications (nephrolithiasis) or signs of obstructive uropathy i.e. no pyelocaliectasis. 4. Right kidney measures 11.69 cm L x 6.98 cm W x 5.70 cm AP diameter. 5. Left kidney measures 10.07 cm L x 5.23 cm W x 4.63 cm AP diameter. 6. No perinephric fluid collections. 7. Symmetrically distended urinary bladder. No mucosal wall polyp, diverticulum, or mobile dependent intraluminal echogenic "shadowing" urinary bladder stones. Normal ureteral "jets" bilaterally.
[2020-07-27] MEDS ORDERED: DAPTOMYCIN IVPUSH SCH (15:00)
[2020-07-27] MEDS ORDERED: SULFA PO SCH (15:00)
[2020-07-27] MEDS ORDERED: TRIM PO SCH (15:00)
[2020-07-27] MEDS: PILOCARPINE 5 MG PO SCH ×2 (15:23→21:28)
[2020-07-27] MEDS: oxyCODONE 5 MG Tab PO PRN ×2 (15:55→21:32)
[2020-07-27] MEDS: PANTOPRAZOLE 40 MG PO SCH (18:29)
[2020-07-27] MEDS ORDERED: DULOXETINE 30 MG PO SCH (21:00)
[2020-07-28] MEDS: oxyCODONE 5 MG Tab PO PRN (02:40)
[2020-07-28] MEDS: Ampicillin/Sulbactam Na 3 GM in Sodium Chloride 0.9% 100 ML IV SCH ×2 (05:30→13:07)
[2020-07-28 07:24] LABS: ANION GAP 12.7 mEq/L (7-13)
[2020-07-28] MEDS: predniSONE 10 MG Tab PO SCH (09:58)
[2020-07-28] MEDS: PANTOPRAZOLE 40 MG PO SCH (09:59)
[2020-07-28] MEDS: PILOCARPINE 5 MG PO SCH (10:00)
[2020-07-28] MEDS: Insulin Lispro 100 Units/ML 3 ML Vial SUBCUT SCH ×2 (10:00→13:06)
--- NOTE | 2020-07-28 10:40 | PCM.DCSUM1 ---
Discharge Summary - Hospital Course Free Text/Narrative:: 44F w/ pmh DM2, obesity, CLAUDINE, COVID19 in 01/2020, numerous episodes of sepsis due to diabetic infections, most recently w/ MRSA right shoulder infection now on mcc abx (s/p 2 weeks of vanco and now on week 1 of dapto) p/w syncope and facial trauma. Pt c/o 3 days of dizziness, feeling unwell. She also has chronic dyspnea on exertion since COVID19. Past 3 days shes been having trouble getting around due to weakness and lightheadedness. Denies vertigo. Today additionally she helped prepare and clean up after grand son's B-day alliance party. Subsequently felt really lightheaded and laid down. Doesnt remember waking up and walking but must've because she was found down in the bathroom having fallen and hit her face. #right medial orbital fxt / comminuted, open nasal fxt - unasyn for ppx abx - d/w Dr Teresa Zhang GF ENT and he has reviewed imaging - he will see her next week - pt's cell phone number confirmed and provided - only rec was to tell pt not to blow her nose #syncope - orthostatic - appears dry on exam - Cr increased from baseline - hold bumex today and hydrate - bumex changed to lasix on discharge - CM to set up prompt PCP follow up to re-assess volume status #RODRI - resolved #DM2 - restart metformin on d/c since Cr improved #MRSA right shoulder infection - c/w dapto - dosing reviewed w/ pharmacy - Discharge Data Discharge Date: 07/28/20 Discharge Disposition: Home, Self-Care 01 Condition: Undetermined - Referral to Home Health Primary Care Physician: PCP None - Discharge Plan *PRESCRIPTION DRUG MONITORING PROGRAM REVIEWED*: No *COPY OF PRESCRIPTION DRUG MONITORING REPORT IN PATIENT MAURICIO: No Prescriptions/Med Rec: Amoxicillin/Clavulanate K [Augmentin 875-125 MG] 1 tab PO BID #14 tablet Furosemide [Lasix] 40 mg PO DAILY #30 tablet Home Medications: Home Meds cycloSPORINE [Restasis] 1 drop EYEBOTH BID 04/14/16 [History] metFORMIN HCl [Metformin HCl] 1,000 mg PO BIDMEALS 04/24/18 [History] Insulin Glargine,Hum.Rec.Anlog [Basaglar Kwikpen U-100] 37 unit SQ BID 10/31/18 [History] Mirabegron [Myrbetriq] 25 mg PO DAILY 10/31/18 [History] Pregabalin [Lyrica] 150 mg PO TID 10/31/18 [History] Rosuvastatin Calcium 20 mg PO DAILY 12/01/19 [History] predniSONE 10 mg PO DAILY 12/01/19 [History] DULoxetine [Cymbalta] 30 mg PO BEDTIME 02/06/20 [History] azaTHIOprine [Azathioprine] 50 mg PO DAILY 02/06/20 [History] buPROPion [buPROPion XL] 150 mg PO DAILY 02/06/20 [History] Amitriptyline [Elavil] 25 mg PO BEDTIME 07/27/20 [History] DULoxetine [Cymbalta] 60 mg PO DAILY 07/27/20 [History] Diclofenac Sodium [Voltaren 1% Gel] 2 g TOP BID 07/27/20 [History] Ergocalciferol (Vitamin D2) [Vitamin D2] 1.25 mg PO WEEKLY 07/27/20 [History] Pantoprazole [ProTONIX] 40 mg PO BIDMEALS 07/27/20 [History] Patient's Own Medication [Ptom] 700 mg IV Q24H 07/27/20 [History] Pilocarpine HCl [Salagen] 5 mg PO TID 07/27/20 [History] Sulfamethoxazole/Trimethoprim [Sulfamethoxazole-Tmp Ds Tablet] 1 each PO .3XWEEK 07/27/20 [History] rOPINIRole [Requip] 0.25 mg PO BEDTIME 07/27/20 [History] tiZANidine [Zanaflex] 1 mg PO Q8H PRN 07/27/20 [History] Amoxicillin/Clavulanate K [Augmentin 875-125 MG] 1 tab PO BID #14 tablet 07/28/20 [Rx] Furosemide [Lasix] 40 mg PO DAILY #30 tablet 07/28/20 [Rx] Forms: ED Department Discharge Referrals: Brad Acosta MD [Physician] - - Discharge Summary/Plan Comment DC Time >30 min.: Yes (35 min) - Patient Data Vitals - Most Recent: Last Vital Signs Temp 98.4 F 07/28/20 07:58 Pulse 92 07/28/20 07:58 Resp 20 07/28/20 07:58 BP 140/84 07/28/20 07:58 Pulse Ox 100 07/28/20 07:58 Orthostatic Blood Pressure [ 127/64 Standing] Orthostatic Blood Pressure [ 130/81 Sitting] Orthostatic Blood Pressure [ 130/60 Supine] Weight - Most Recent: 257 lb 3.2 oz I&O - Last 24 hours: Intake & Output 07/27/20 07/28/20 07/28/20 22:59 06:59 14:59 Intake Total 1880 1382 Output Total 750 900 Balance 1130 482 Lab Results - Last 24 hrs: Laboratory Results - last 24 hr 07/27/20 07/27/20 07/27/20 Range/Units 11:39 16:59 21:16 Sodium (136-145) mmol/L Potassium (3.5-5.1) mmol/L Chloride (98-107) mmol/L Carbon Dioxide (21-32) mmol/L Anion Gap (7-13) mEq/L BUN (7-18) mg/dL Creatinine (0.55-1.02) mg/dL Est Cr Clr Drug Dosing mL/min Estimated GFR (MDRD) Glucose (70-99) mg/dL POC Glucose 119 H 160 H 199 H (70-99) mg/dL Calcium (8.5-10.1) mg/dL 07/28/20 07/28/20 Range/Units 06:20 07:49 Sodium 145 (136-145) mmol/L Potassium 4.7 (3.5-5.1) mmol/L Chloride 109 H (98-107) mmol/L Carbon Dioxide 28 (21-32) mmol/L Anion Gap 12.7 (7-13) mEq/L BUN 15 (7-18) mg/dL Creatinine 1.47 H (0.55-1.02) mg/dL Est Cr Clr Drug Dosing 47.00 mL/min Estimated GFR (MDRD) 38 Glucose 154 H (70-99) mg/dL POC Glucose 142 H (70-99) mg/dL Calcium 8.2 L (8.5-10.1) mg/dL JHONNY Results - Last 24 hrs: Microbiology 07/27/20 00:45 Aerobic Blood Culture - Preliminary Blood - Arm, Right NO GROWTH AFTER 1 DAY Anaerobic Blood Culture - Final 07/27/20 00:40 Aerobic Blood Culture - Preliminary Blood - Arm, Right NO GROWTH AFTER 1 DAY Anaerobic Blood Culture - Final Med Orders - Current: Current Medications Acetaminophen (Acetaminophen 325 Mg Tab) 650 mg PO Q4H PRN PRN Reason: Pain (Mild 1-3)/fever Benzocaine/Menthol (Benzocaine/Cetylpyridinium/Menthol Lozenge) 1 lozenge MUCMEM Q2H PRN PRN Reason: Sore Throat Dextrose/Water (50% Dextrose In Water 50 Ml Syringe) 50 ml IV Q15M PRN PRN Reason: Hypoglycemia Duloxetine HCl (Duloxetine 30 Mg Cap *Own Med*) 30 mg PO BEDTIME [facility] Last Admin: 07/27/20 21:28 Dose: 30 mg Documented by: Glucagon (Glucagon,Human Recombinant 1 Mg Vial) 1 mg IM Q15M PRN PRN Reason: Hypoglycemia Sodium Chloride (Normal Saline) 1,000 mls @ 999 mls/hr IV .BOLUS [facility] Last Admin: 07/27/20 03:30 Dose: 999 mls/hr Documented by: Sodium Chloride (Normal Saline) 1,000 mls @ 125 mls/hr IV ASDIRECTED [facility] Last Admin: 07/27/20 22:43 Dose: 125 mls/hr Documented by: Ampicillin Sodium/Sulbactam (Sodium 3 gm/ Sodium Chloride) 100 mls @ 100 mls/hr IV Q6HR [facility] Last Admin: 07/28/20 05:30 Dose: 100 mls/hr Documented by: Insulin Human Lispro (Insulin Lispro 100 Units/Ml 3 Ml Vial) 0 unit SUBCUT WITHMEALSANDBED [facility]; Protocol Last Admin: 07/28/20 10:00 Dose: Not Given Documented by: Pilocarpine [Salagen (] 5 Mg Tab *Own Med*) 0 mg PO TID [facility] Last Admin: 07/28/20 10:00 Dose: 5 mg Documented by: Non-Formulary Medication (Mirabegron [Myrbetriq]) 25 mg PO DAILY [facility] Ondansetron HCl (Ondansetron 4 Mg/2 Ml Sdv) 4 mg IVPUSH Q4H PRN PRN Reason: Nausea/Vomiting Oxycodone HCl (Oxycodone 5 Mg Tab) 5 mg PO Q4H PRN PRN Reason: Pain (moderate 4-6) Last Admin: 07/28/20 02:40 Dose: 5 mg Documented by: Pantoprazole Sodium (Pantoprazole 40 Mg Tab.Cr *Own Med*) 40 mg PO BIDMEALS [facility] Last Admin: 07/28/20 09:59 Dose: 40 mg Documented by: Daptomycin 700 Mg * (Own Med*) 0 each IVPUSH DAILY@1500 [facility] Last Admin: 07/27/20 15:24 Dose: 1 each Documented by: Prednisone (Prednisone 10 Mg Tab) 10 mg PO DAILY [facility] Last Admin: 07/28/20 09:58 Dose: 10 mg Documented by: Discontinued Medications Bacitracin (Bacitracin Oint 1 Gm U/D Packet) 1 dose TOP ONETIME ONE Stop: 07/27/20 00:05 Last Admin: 07/27/20 00:14 Dose: 1 dose Documented by: Diphtheria/Tetanus/Acell Pertussis (Diphtheria,Pertussis(Acell),Tetanus Vaccine 0.5 Ml Syringe) 0.5 ml IM .ONCE ONE Stop: 07/27/20 00:05 Last Admin: 07/27/20 00:11 Dose: 0.5 ml Documented by: Ampicillin Sodium/Sulbactam (Sodium 1.5 gm/ Sodium Chloride) 100 mls @ 200 mls/hr IV ONETIME ONE Stop: 07/27/20 03:02 Last Admin: 07/27/20 02:58 Dose: 200 mls/hr Documented by: Lidocaine HCl (Lidocaine 1% 30 Ml Sdv) 30 ml INJECT ONETIME ONE Stop: 07/27/20 00:05 Last Admin: 07/27/20 00:13 Dose: 30 ml Documented by: Trimethoprim/Sulfamethoxazole (Sulfa/Trim 800-160 Mg Tab *Own Med*) 0 tab PO MoWeSa@0900 [facility] Stop: 07/27/20 15:01 Last Admin: 07/27/20 15:23 Dose: 1 tab Documented by: *Q Meaningful Use (DIS) - VTE *Q VTE Anticoagulation Contraindications: Medical/Procedure Contrai
[2020-07-28 12:31] VITALS: BP 137/81; PULSE 90
== END 2020-07-28 13:15 | disposition home or self-care (01) ==
LOC: DL.ED 23:22 → DL.MS 07-27 01:44
PROVIDERS: ADMIT Internal Medicine; ATTEND Internal Medicine
DX: S02.831 Fracture of medial orbital wall, right side (principal); S02.2XXB Fracture of nasal bones, initial encounter for open fracture; R55 Syncope and collapse; Z23 Encounter for immunization; E11.9 Type 2 diabetes mellitus without complications; N17.9 Acute kidney failure, unspecified; M00.011 Staphylococcal arthritis, right shoulder; B95.62 Methicillin resistant Staphylococcus aureus infection as the cause of diseases classified elsewhere; I10 Essential (primary) hypertension; G47.30 Sleep apnea, unspecified; D50.9 Iron deficiency anemia, unspecified; Z20.822 Contact with and (suspected) exposure to COVID-19; Z79.4 Long term (current) use of insulin; Z79.899 Other long term (current) drug therapy; Z87.891 Personal history of nicotine dependence; Z86.16 Personal history of COVID-19; W19.XXXA Unspecified fall, initial encounter
CPT/HCPCS: 0240U; 12011; 36415; 70450; 70486; 72125; 76770; 80048; 80053; 80305-QW; 80307; 81001; 81025; 82947; 83036; 83605; 84484; 85025; 86140; 87040; 90471; 90715; 93005; 93010; 96365; 96366; 96375; 99284; 99285-25; A9270-GY; G0378; J0295; J1815-GY; J7030; J7040; J7512

== ENCOUNTER 2020-10-02 15:08 | Inpatient (IN) | payer MEDICARE, MEDICAID ==
--- NOTE | 2020-10-02 15:43 | EDM.PDOC ---
<Sesar Veronica Floyd - Last Filed: 10/02/20 16:21> ED HPI GENERAL MEDICAL PROBLEM - General Chief Complaint: Respiratory Problem Stated Complaint: [facility] Time Seen by Provider: 10/02/20 15:25 Source of Information: Reports: Patient History Limitations: Reports: No Limitations - History of Present Illness INITIAL COMMENTS - FREE TEXT/NARRATIVE: This 45 yo female patient was brought to the ED by [facility] due to increased shortness of breath, cough and chest pain. The patient reports she has had COVID 2 times (last time in July 2020). The patient reports she has had a cough and chest pain since her discharge from the hospital. The patient reports she has been nauseated, vomiting and had diarrhea since the previous visit. The patient has a history of RA and Lupus and [facility] infusions in [place] [facility] on [facility]. Onset: Unknown/Unsure Duration: Constant, Getting Worse Location: Reports: Chest Quality: Reports: Other Severity: Severe Improves with: Reports: None Worsens with: Reports: None Context: Reports: Other Associated Symptoms: Reports: cough w sputum, Loss of Appetite, Malaise, Nausea/Vomiting, Shortness of Breath Treatments [employer]ING [employer]ENT: Reports: Breathing Treatments - Related Data Allergies Allergy/AdvReac Type Severity Reaction Status Date / Time rituximab Allergy Severe Anaphylactic Verified 10/02/20 22:34 Shock Home Meds: Home Meds cycloSPORINE [Restasis] 1 drop EYEBOTH BID 04/14/16 [History] metFORMIN HCl [Metformin HCl] 1,000 mg PO BIDMEALS 04/24/18 [History] Insulin Glargine,Hum.Rec.Anlog [Constance Roe U-100] 37 unit SQ BID 10/31/18 [History] Mirabegron [Myrbetriq] 25 mg PO DAILY 10/31/18 [History] Pregabalin [Lyrica] 150 mg PO TID 10/31/18 [History] Rosuvastatin Calcium 20 mg PO DAILY 12/01/19 [History] predniSONE 10 mg PO DAILY 12/01/19 [History] DULoxetine [Cymbalta] 30 mg PO BEDTIME 02/06/20 [History] azaTHIOprine [Azathioprine] 50 mg PO DAILY 02/06/20 [History] buPROPion [buPROPion XL] 150 mg PO DAILY 02/06/20 [History] Amitriptyline [Elavil] 25 mg PO BEDTIME 07/27/20 [History] DULoxetine [Cymbalta] 60 mg PO DAILY 07/27/20 [History] Diclofenac Sodium [Voltaren 1% Gel] 2 g TOP BID 07/27/20 [History] Ergocalciferol (Vitamin D2) [Vitamin D2] 1.25 mg PO WEEKLY 07/27/20 [History] Pantoprazole [ProTONIX] 40 mg PO BIDMEALS 07/27/20 [History] Patient's Own Medication [Ptom] 700 mg IV Q24H 07/27/20 [History] Pilocarpine HCl [Salagen] 5 mg PO TID 07/27/20 [History] rOPINIRole [Requip] 0.25 mg PO BEDTIME 07/27/20 [History] tiZANidine [Zanaflex] 1 mg PO Q8H PRN 07/27/20 [History] Furosemide [Lasix] 40 mg PO DAILY #30 tablet 07/28/20 [Rx] oxyCODONE 5 mg PO Q6H PRN 10/02/20 [History] Past Medical History - Past Health History Medical/Surgical History: Denies Medical/Surgical History HEENT History: Reports: Cataract, Hard of Hearing, Impaired Vision, Other (See Below) Other HEENT History: wears glasses Cardiovascular History: Reports: Hypertension, SOB on Exertion Respiratory History: Reports: Bronchitis, Recurrent, Sleep Apnea, SOB Gastrointestinal History: Reports: Gastritis, Other (See Below) Other Gastrointestinal History: chronic stomach pains. ABCESS OF ABDOMEN Genitourinary History: Reports: Renal Disease, UTI, Recurrent, Other (See Below) Other Genitourinary History: RENAL ABSCESS PLASTERER ROUGH History: Reports: , Other (See Below) Other PLASTERER ROUGH History: 2 Musculoskeletal History: Reports: Amputation, Back Pain, Chronic, Fibromyalgia, RA, SLE, Other (See Below) Other Musculoskeletal History: Scoliosis of the spine w/ chronic back pain. OSTEOMELITIS OF RIGHT FOOT, healed 05/10/17 Neurological History: Reports: Other (See Below) Other Neuro History: SOMNOLENCE, DAYTIME, nerve damage to back and legs Psychiatric History: Reports: Anxiety, Eating Disorders Endocrine/Metabolic History: Reports: Diabetes, Type II, IDDM, Obesity/BMI 30+, Vitamin D Deficiency Hematologic History: Reports: Iron Deficiency, Other (See Below) Other Hematologic History: HX OF SEPSIS. HX OF MRSA INFECTION Immunologic History: Reports: Immunosuppression, Other (See Below) Other Immunologic History: RA and Lupus Oncologic (Cancer) History: Reports: None Dermatologic History: Reports: Cellulitis, Other (See Below) Other Dermatologic History: hx of mrsa. HX OF SKIN ULCERS OF FOOT, BILAT. DIABETIC SKIN ULCERS. CELLULITIS OF L ANTERIOR LOWER LEG. BIOPSY OF SKIN LESION - Infectious Disease History Infectious Disease History: Reports: Influenza, MRSA, Novel Coronavirus, Shingles Other Infectious Disease History: CELLULITIS - Past Surgical History Head Surgeries/Procedures: Reports: None HEENT Surgical History: Reports: Cataract Surgery Other HEENT Surgeries/Procedures: BILAT CATARACT EXTRACTION WITH LENS PLACEMENT Cardiovascular Surgical History: Reports: None Respiratory Surgical History: Reports: None GI Surgical History: Reports: None Other GI Surgeries/Procedures: pt states "to remove infection in my stomach". I & D OF ABDOMINAL ABSCESS Female Surgical History: Reports: Other (See Below) Other Female Surgeries/Procedures: cyst on her left kidney Endocrine Surgical History: Reports: None Neurological Surgical History: Reports: None Musculoskeletal Surgical History: Reports: Amputation, Other (See Below) Other Musculoskeletal Surgeries/Procedures:: right toe ampulation Oncologic Surgical History: Reports: None Dermatological Surgical History: Reports: Other (See Below) Social & Family History - Family History Family Medical History: No Pertinent Family History HEENT: Reports: None Cardiac: Reports: None Respiratory: Reports: None GI: Reports: None : Reports: None OBGYN: Reports: None Musculoskeletal: Reports: RA Neurological: Reports: None Psychiatric: Reports: Depression Endocrine/Metabolic: Reports: Diabetes, type II Hematologic: Reports: None Immunologic: Reports: None Dermatologic: Reports: None Oncologic: Reports: None - Tobacco Use Tobacco Use Status *Q: Never Tobacco User Second Hand Smoke Exposure: No - Caffeine Use Caffeine Use: Reports: Coffee, Soda Other Caffeine Use: 16oz daily Caffeine Use Comment: 3/day - Living Situation & Occupation Living situation: Reports: with Family ED ROS GENERAL - Review of Systems Review Of Systems: Comprehensive ROS is negative, except as noted in HPI. ED EXAM, GENERAL - Physical Exam Exam: See Below Exam Limited By: No Limitations General Appearance: Alert, WD/WN, Severe Distress, Obese Eye Exam: Bilateral Eye: EOMI, Normal Inspection, PERRL Ears: Normal External Exam, Normal Canal, Hearing Grossly Normal, Normal TMs Nose: Normal Inspection, Normal Mucosa, No Blood Throat/Mouth: Normal Inspection, Normal Lips, Normal Teeth, Normal Gums, Normal Oropharynx, Normal Voice, No Airway Compromise Head: Atraumatic, Normocephalic Neck: Normal Inspection, Supple, Non-Tender, Full Range of Motion Respiratory/Chest: Rhonchi, Wheezing Cardiovascular: Normal Peripheral Pulses, Regular Rate, Rhythm, No Edema, No Gallop, No JVD, No Murmur, No Rub GI/Abdominal: Normal Bowel Sounds, Soft, Non-Tender, No Organomegaly, No Distention, No Abnormal Bruit, No Mass (Female) Exam: Deferred Rectal (Female) Exam: Deferred Back Exam: Normal Inspection, Full Range of Motion, NT Extremities: Normal Inspection, Normal Range of Motion, Non-Tender, Normal Ca pillary Refill, No Pedal Edema Neurological: Alert, Oriented, CN II-XII Intact, Normal Cognition, Normal Gait, Normal Reflexes, No Motor/Sensory Deficits Psychiatric: Normal Affect, Normal Mood Skin Exam: Warm, Dry, Intact, Normal Color, No Rash Lymphatic: No Adenopathy #1 Interpretation EKG Date: 10/02/20 Time: 15:38 Rhythm: Other (Sinus Tach) Rate (Beats/Min): 124 [place]: Normal P-Wave: Present QRS: Normal ST-T: Normal QT: Normal Comparison: Change From Previous EKG Course - Radiology Interpretation Free Text/Narrative:: [facility] Final Radiology Report Call: [phone] assistance Online chat: [email or web address] Name: OUSMANE GARCIA Age: 45Years F Date: 10/02/2020 SSN: -- : [id number] Study: CR CHEST 2V Requesting Physician: Sesar Veronica Images: 1 Addl Studies: Provided Clinical History: short of breath Contrast: Contrast Medium: Contrast Amount: Contrast Method: CONFIDENTIALITY STATEMENT This report is intended only for use by the referring physician, and only in accordance with law. If you received this in error, call [phone]. Page 1 of 1 PROCEDURE INFORMATION: Exam: XR Chest Exam date and time: 10/02/2020 3:57 PM Age: 45 years old Clinical indication: Shortness of breath; Additional info: Short of breath TECHNIQUE: Imaging protocol: XR of the chest. Views: 2 views. COMPARISON: CT Chest wo Cont, Chest wo Cont 02/02/2020 1:39 AM FINDINGS: Lungs: Atelectatic changes within the lung bases without focal pneumonia. Pleural spaces: There is no evidence of pneumothorax. There are no pleural effusions present. Heart/Mediastinum: The heart is not enlarged. Bones/joints: The thoracic spine demonstrates mild degenerative changes at multiple levels. Soft tissues: There are no soft tissue masses or fluid collections. IMPRESSION: Atelectatic changes within the lung bases without focal pneumonia. Thank you for allowing us to participate in the care of your patient. Dictated and Authenticated by: Anjum Ponce DO 10/02/2020 4:17 PM Central Time ([place] & [place]) Departure - Departure Disposition: Admitted As Inpatient 65 Clinical Impression: Hypoxia, Cough, Hypokalemia Rheumatoid arthritis Qualifiers: Rheumatoid arthritis location: multiple sites Rheumatoid factor presence: unspecified presence Qualified Code(s): M06.9 - Rheumatoid arthritis, unspecified Lupus (systemic lupus erythematosus) Qualifiers: Systemic lupus erythematosus type: unspecified Systemic lupus erythematosus organ involvement: unspecified Qualified Code(s): M32.9 - Systemic lupus erythematosus, unspecified - Discharge Information Sepsis Event Note (ED) - Evaluation Sepsis Screening Result: No Definite Risk <Tasia Eddy - Last Filed: 10/03/20 04:32> ED HPI GENERAL MEDICAL PROBLEM Generalized Pain Score (Numeric/FACES): 7 Course - Vital Signs Last Recorded V/S: Last Vital Signs Temp 96.9 F 10/03/20 01:11 Pulse 85 10/03/20 03:03 Resp 20 10/03/20 01:11 BP 117/67 10/03/20 01:11 Pulse Ox 94 L 10/03/20 03:03 - Orders/Labs/Meds Orders: Active Orders 24 hr Category Date Time Status Admission Diagnosis [ADT] Stat ADT 10/02/20 20:34 Ordered Patient Status [ADT] Stat ADT 10/02/20 20:34 Active CULTURE BLOOD [BC] Stat Lab 10/02/20 16:41 Results CULTURE BLOOD [BC] Stat Lab 10/02/20 16:46 Received Blood Culture x2 Reflex Set [OM.PC] Stat Oth 10/02/20 16:19 Ordered Medication Orders Acetaminophen (Acetaminophen 325 Mg Tab) 650 mg PO Q4H PRN PRN Reason: Pain (Mild 1-3)/fever Albuterol/Ipratropium (Albuterol/Ipratropium 3.0-0.5 Mg/3 Ml Neb Soln) 3 ml NEB Q4HRRT [facility] Last Admin: 10/03/20 03:03 Dose: 3 ml Documented by: Admin: 10/02/20 22:49 Dose: 3 ml Documented by: JOSHUA Amitriptyline HCl (Amitriptyline 25 Mg Tab) 25 mg PO BEDTIME NELLY Azathioprine (Azathioprine 50 Mg Tab) 50 mg PO DAILY NELLY Bupropion HCl (Bupropion 150 Mg Tab.Er) 150 mg PO DAILY [facility] Dextrose/Water (50% Dextrose In Water 50 Ml Syringe) 50 ml IVPUSH Q15M PRN PRN Reason: Hypoglycemia Duloxetine HCl (Duloxetine 30 Mg Cap) 30 mg PO BEDTIME NELLY Duloxetine HCl (Duloxetine 30 Mg Cap) 60 mg PO DAILY [facility] Glucagon (Glucagon,Human Recombinant 1 Mg Vial) 1 mg IM Q15M PRN PRN Reason: Hypoglycemia Heparin Sodium (Porcine) (Heparin Sodium 5,000 Units/Ml Vial) 5,000 units SUBCUT Q12HR [facility] Sodium Chloride (Normal Saline) 1,000 mls @ 100 mls/hr IV ASDIRECTED [facility] Last Admin: 10/02/20 22:49 Dose: 100 mls/hr Documented by: JOSHUA Azithromycin 500 mg/ Sodium (Chloride) 250 mls @ 250 mls/hr IV Q24H [facility] Last Infusion: 10/02/20 23:50 Dose: 250 mls/hr Documented by: Admin: 10/02/20 22:49 Dose: 250 mls/hr Documented by: JOSHUA Ceftriaxone Sodium 1 gm/ (Sodium Chloride) 50 mls @ 100 mls/hr IV Q24H [facility] Insulin Glargine (Insulin Glarg,Human.Rec.Analog 100 Unit/Ml) 37 unit SUBCUT BID [facility] Last Admin: 10/02/20 22:48 Dose: 37 units Documented by: JOSHUA Insulin Human Lispro (Insulin Lispro 100 Units/Ml 3 Ml Vial) 0 unit SUBCUT WITHMEALSANDBED [facility]; Protocol Methylprednisolone Sodium Succinate (Methylprednisolone Sodium Succinate 40 Mg/1 Ml Sdv) 60 mg IVPUSH Q8H NELLY Last Admin: 10/03/20 00:41 Dose: 60 mg Documented by: YUSEF Non-Formulary Medication (Cyclosporine [Restasis]) 1 drop EYEBOTH BID NELLY Non-Formulary Medication (Diclofenac Sodium [Voltaren 1% Gel]) 2 g TOP BID NELLY Non-Formulary Medication (Mirabegron [Myrbetriq]) 25 mg PO DAILY NELLY Non-Formulary Medication (Pilocarpine Hcl [Salagen]) 5 mg PO TID NELLY Ondansetron HCl (Ondansetron 4 Mg/2 Ml Sdv) 4 mg IVPUSH Q4H PRN PRN Reason: Nausea/Vomiting Oxycodone HCl (Oxycodone 5 Mg Tab) 5 mg PO Q6H PRN PRN Reason: Pain Last Admin: 10/02/20 23:01 Dose: 5 mg Documented by: JOSHUA Pantoprazole Sodium (Pantoprazole 40 Mg Tab.Cr) 40 mg PO ACBREAKFAST [facility] Patient Own Medication (Patient's Own Medication 1 Each) each IVPUSH .WEEKLY NELLY Pregabalin (Pregabalin 150 Mg Cap) 150 mg PO TID NELLY Ropinirole HCl (Ropinirole 0.25 Mg Tab) 0.25 mg PO BEDTIME NELLY Rosuvastatin Calcium (Rosuvastatin 10 Mg Tab) 20 mg PO DAILY [facility] Sodium Chloride (Sodium Chloride 0.9% 10 Ml Syringe) 10 ml FLUSH ASDIRECTED PRN PRN Reason: Keep Vein Open Last Admin: 10/02/20 22:52 Dose: 10 ml Documented by: JOSHUA Labs: Laboratory Tests 10/02/20 10/02/20 10/02/20 Range/Units 15:49 15:49 15:49 WBC 11.8 H (5.0-10.0) 10^3/uL RBC 5.03 (4.2-5.4) 10^6/uL Hgb 14.0 D (12.0-16.0) g/dL Hct 43.1 (37.0-47.0) % MCV 85.7 D (80-100) fL MCH 27.8 (27.0-34.0) pg MCHC 32.5 L (33.0-35.0) g/dL Plt Count 357 (150-450) 10^3/uL Neut % (Auto) 69.3 (42.2-75.2) % Lymph % (Auto) 16.8 L (20.5-50.1) % [place] % (Auto) 11.4 H (2-8) % Eos % (Auto) 2.2 (1.0-3.0) % Baso % (Auto) 0.3 (0.0-1.0) % D-Dimer, Quantitative (0-400) ng/mL Sodium 140 (136-145) mmol/L Potassium 3.2 L D (3.5-5.1) mmol/L Chloride 101 (98-107) mmol/L Carbon Dioxide 22 (21-32) mmol/L Anion Gap 20.2 H (7-13) mEq/L BUN 20 H (7-18) mg/dL Creatinine 2.21 H (0.55-1.02) mg/dL Est Cr Clr Drug Dosing TNP Estimated GFR (MDRD) 24 BUN/Creatinine Ratio 9.0 (No establ ref range) Glucose 243 H (70-99) mg/dL Lactic Acid 2.8 H* (0.4-2.0) mmol/L Calcium 9.3 (8.5-10.1) mg/dL Total Bilirubin 0.3 (0.2-1.0) mg/dL AST 20 (15-37) U/L ALT 31 (14-59) U/L Alkaline Phosphatase 104 (46-116) U/L Troponin I High Sens 8 (<=51) pg/mL C-Reactive Protein (0.0-0.9) mg/dL Total Protein 7.9 (6.4-8.2) g/dL Albumin 3.3 L (3.4-5.0) g/dL Globulin 4.6 Albumin/Globulin Ratio 0.72 SARS-CoV-2 RNA (DIVYA) (NEGATIVE) 10/02/20 10/02/20 10/02/20 Range/Units 15:49 15:49 19:05 WBC (5.0-10.0) 10^3/uL RBC (4.2-5.4) 10^6/uL Hgb (12.0-16.0) g/dL Hct (37.0-47.0) % MCV (80-100) fL MCH (27.0-34.0) pg MCHC (33.0-35.0) g/dL Plt Count (150-450) 10^3/uL Neut % (Auto) (42.2-75.2) % Lymph % (Auto) (20.5-50.1) % [place] % (Auto) (2-8) % Eos % (Auto) (1.0-3.0) % Baso % (Auto) (0.0-1.0) % D-Dimer, Quantitative 415 H (0-400) ng/mL Sodium (136-145) mmol/L Potassium (3.5-5.1) mmol/L Chloride (98-107) mmol/L Carbon Dioxide (21-32) mmol/L Anion Gap (7-13) mEq/L BUN (7-18) mg/dL Creatinine (0.55-1.02) mg/dL Est Cr Clr Drug Dosing Estimated GFR (MDRD) BUN/Creatinine Ratio (No establ ref range) Glucose (70-99) mg/dL Lactic Acid 2.7 H* (0.4-2.0) mmol/L Calcium (8.5-10.1) mg/dL Total Bilirubin (0.2-1.0) mg/dL AST (15-37) U/L ALT (14-59) U/L Alkaline Phosphatase (46-116) U/L Troponin I High Sens (<=51) pg/mL C-Reactive Protein 9.9 H (0.0-0.9) mg/dL Total Protein (6.4-8.2) g/dL Albumin (3.4-5.0) g/dL Globulin Albumin/Globulin Ratio SARS-CoV-2 RNA (DIVYA) (NEGATIVE) 10/02/20 Range/Units 19:36 WBC (5.0-10.0) 10^3/uL RBC (4.2-5.4) 10^6/uL Hgb (12.0-16.0) g/dL Hct (37.0-47.0) % MCV (80-100) fL MCH (27.0-34.0) pg MCHC (33.0-35.0) g/dL Plt Count (150-450) 10^3/uL Neut % (Auto) (42.2-75.2) % Lymph % (Auto) (20.5-50.1) % [place] % (Auto) (2-8) % Eos % (Auto) (1.0-3.0) % Baso % (Auto) (0.0-1.0) % D-Dimer, Quantitative (0-400) ng/mL Sodium (136-145) mmol/L Potassium (3.5-5.1) mmol/L Chloride (98-107) mmol/L Carbon Dioxide (21-32) mmol/L Anion Gap (7-13) mEq/L BUN (7-18) mg/dL Creatinine (0.55-1.02) mg/dL Est Cr Clr Drug Dosing Estimated GFR (MDRD) BUN/Creatinine Ratio (No establ ref range) Glucose (70-99) mg/dL Lactic Acid (0.4-2.0) mmol/L Calcium (8.5-10.1) mg/dL Total Bilirubin (0.2-1.0) mg/dL AST (15-37) U/L ALT (14-59) U/L Alkaline Phosphatase (46-116) U/L Troponin I High Sens (<=51) pg/mL C-Reactive Protein (0.0-0.9) mg/dL Total Protein (6.4-8.2) g/dL Albumin (3.4-5.0) g/dL Globulin Albumin/Globulin Ratio SARS-CoV-2 RNA (DIVYA) Negative (NEGATIVE) Meds: Medications Generic Name Dose Route Start Last Admin Trade Name Freq PRN Reason Stop Dose Admin Acetaminophen 650 mg 10/02/20 21:28 Acetaminophen 325 Mg Tab PO Q4H PRN Pain (Mild 1-3)/fever Albuterol/Ipratropium 3 ml 10/02/20 23:00 10/03/20 03:03 Albuterol/Ipratropium 3.0-0.5 Mg/3 Ml Neb Soln NEB 3 ml Q4HRRT NELLY Administration Amitriptyline HCl 25 mg 10/03/20 21:00 Amitriptyline 25 Mg Tab PO BEDTIME NELLY Azathioprine 50 mg 10/03/20 09:00 Azathioprine 50 Mg Tab PO DAILY NELLY Bupropion HCl 150 mg 10/03/20 09:00 Bupropion 150 Mg Tab.Er PO DAILY [facility] Dextrose/Water 50 ml 10/02/20 21:33 50% Dextrose In Water 50 Ml Syringe IVPUSH Q15M PRN Hypoglycemia Duloxetine HCl 30 mg 10/03/20 21:00 Duloxetine 30 Mg Cap PO BEDTIME [facility] Duloxetine HCl 60 mg 10/03/20 09:00 Duloxetine 30 Mg Cap PO DAILY [facility] Glucagon 1 mg 10/02/20 21:33 Glucagon,Human Recombinant 1 Mg Vial IM Q15M PRN Hypoglycemia Heparin Sodium (Porcine) 5,000 units 10/03/20 09:00 Heparin Sodium 5,000 Units/Ml Vial SUBCUT Q12HR [facility] Sodium Chloride 1,000 mls @ 100 mls/hr 10/02/20 21:30 10/02/20 22:49 Normal Saline IV 100 mls/hr ASDIRECTED [facility] Administration Azithromycin 500 mg/ Sodium 250 mls @ 250 mls/hr 10/02/20 22:00 10/02/20 23:50 Chloride IV Infused Q24H [facility] Infusion Ceftriaxone Sodium 1 gm/ 50 mls @ 100 mls/hr 10/03/20 17:00 Sodium Chloride IV Q24H [facility] Insulin Glargine 37 unit 10/02/20 22:15 10/02/20 22:48 Insulin Glarg,Human.Rec.Analog 100 Unit/Ml SUBCUT 37 units BID [facility] Administration Insulin Human Lispro 0 unit 10/03/20 08:00 Insulin Lispro 100 Units/Ml 3 Ml Vial SUBCUT WITHMEALSANDBED [facility] Protocol Methylprednisolone Sodium Succinate 60 mg 10/03/20 00:00 10/03/20 00:41 Methylprednisolone Sodium Succinate 40 Mg/1 Ml Sdv IVPUSH 60 mg Q8H [facility] Administration Non-Formulary Medication 1 drop 10/03/20 09:00 Cyclosporine [Restasis] EYEBOTH BID [facility] Non-Formulary Medication 2 g 10/03/20 09:00 Diclofenac Sodium [Voltaren 1% Gel] TOP BID [facility] Non-Formulary Medication 25 mg 10/03/20 09:00 Mirabegron [Myrbetriq] PO DAILY [facility] Non-Formulary Medication 5 mg 10/03/20 09:00 Pilocarpine Hcl [Salagen] PO TID [facility] Ondansetron HCl 4 mg 10/02/20 21:28 Ondansetron 4 Mg/2 Ml Sdv IVPUSH Q4H PRN Nausea/Vomiting Oxycodone HCl 5 mg 10/02/20 22:12 10/02/20 23:01 Oxycodone 5 Mg Tab PO 5 mg Q6H PRN Administration Pain Pantoprazole Sodium 40 mg 10/03/20 06:00 Pantoprazole 40 Mg Tab.Cr PO ACBREAKFAST NELLY Patient Own Medication each 10/02/20 22:15 Patient's Own Medication 1 Each IVPUSH .WEEKLY [facility] Pregabalin 150 mg 10/03/20 09:00 Pregabalin 150 Mg Cap PO TID [facility] Ropinirole HCl 0.25 mg 10/03/20 21:00 Ropinirole 0.25 Mg Tab PO BEDTIME [facility] Rosuvastatin Calcium 20 mg 10/03/20 09:00 Rosuvastatin 10 Mg Tab PO DAILY NELLY Sodium Chloride 10 ml 10/02/20 21:28 10/02/20 22:52 Sodium Chloride 0.9% 10 Ml Syringe FLUSH 10 ml ASDIRECTED PRN Administration Keep Vein Open Discontinued Medications Generic Name Dose Route Start Last Admin Trade Name Freq PRN Reason Stop Dose Admin Ceftriaxone Sodium 1 gm/ 50 mls @ 100 mls/hr 10/02/20 16:24 10/02/20 16:41 Sodium Chloride IV 10/02/20 16:53 100 mls/hr ONETIME ONE Administration Insulin Human Lispro 30 unit 10/02/20 22:19 10/02/20 22:47 Insulin Lispro 100 Units/Ml 3 Ml Vial SUBCUT 10/02/20 22:20 30 units ONETIME ONE Administration Insulin Human Lispro 45 unit 10/02/20 23:50 10/03/20 00:25 Insulin Lispro 100 Units/Ml 3 Ml Vial SUBCUT 10/02/20 23:51 45 units ONETIME ONE Administration Insulin Human Lispro 55 unit 10/03/20 01:49 10/03/20 02:18 Insulin Lispro 100 Units/Ml 3 Ml Vial SUBCUT 10/03/20 01:50 55 units ONETIME ONE Administration Ketorolac Tromethamine 30 mg 10/02/20 17:53 10/02/20 17:58 Ketorolac 30 Mg/Ml Sdv IVPUSH 10/02/20 17:54 30 mg ONETIME ONE Administration Methylprednisolone Sodium Succinate 125 mg 10/02/20 16:25 10/02/20 16:40 Methylprednisolone Sodium Succinate 125 Mg/2 Ml Sdv IVPUSH 10/02/20 16:26 125 mg ONETIME ONE Administration Potassium Chloride 40 meq 10/02/20 21:31 10/02/20 22:48 Potassium Chloride 10 Meq Tab.Er PO 10/02/20 21:32 40 meq ONETIME ONE Administration - Re-Assessments/Exams Free Text/Narrative Re-Assessment/Exam: 10/03/20 04:31 Dr Min accepting patient for admission. Departure - Departure Time of Disposition: 20:38 Condition: Fair Sepsis Event Note (ED) - Focused Exam Vital Signs: Vital Signs Pulse Resp BP Pulse Ox 10/02/20 17:54 98 18 124/65 98 - My Orders Last 24 Hours: My Active Orders 10/02/20 20:34 Admission Diagnosis [ADT] Stat Patient Status [ADT] Stat - Assessment/Plan Last 24 Hours: My Active Orders 10/02/20 20:34 Admission Diagnosis [ADT] Stat Patient Status [ADT] Stat
--- NOTE | 2020-10-02 16:17 | CR ---
PROCEDURE INFORMATION: Exam: XR Chest Exam date and time: 10/02/2020 3:57 PM Age: 45 years old Clinical indication: Shortness of breath; Additional info: Short of breath TECHNIQUE: Imaging protocol: XR of the chest. Views: 2 views. COMPARISON: CT Chest wo Cont, Chest wo Cont 02/02/2020 1:39 AM FINDINGS: Lungs: Atelectatic changes within the lung bases without focal pneumonia. Pleural spaces: There is no evidence of pneumothorax. There are no pleural effusions present. Heart/Mediastinum: The heart is not enlarged. Bones/joints: The thoracic spine demonstrates mild degenerative changes at multiple levels. Soft tissues: There are no soft tissue masses or fluid collections. IMPRESSION: Atelectatic changes within the lung bases without focal pneumonia.
[2020-10-02 16:24] LABS: ANION GAP 20.2 mEq/L (7-13); CHLORIDE,CL 101 mmol/L (98-107); SODIUM,NA 140 mmol/L (136-145)
[2020-10-02] MEDS ORDERED: cefTRIAXone 1 GM in Sodium Chloride 0.9% 50 ML IV ONE (16:24)
[2020-10-02] MEDS ORDERED: methylPREDNISolone Sodium Succinate 125 MG/2 ML SDV IVPUSH ONE (16:25)
[2020-10-02] MEDS ORDERED: Ketorolac 30 MG/ML SDV IVPUSH ONE (17:53)
--- NOTE | 2020-10-02 20:23 | CT ---
PROCEDURE INFORMATION: Exam: CT Chest Without Contrast; Diagnostic Exam date and time: 10/02/2020 7:55 PM Age: 45 years old Clinical indication: Cough and shortness of breath; Patient HX: Covid positive dec and July; Additional info: Cough hypoxia TECHNIQUE: Imaging protocol: Diagnostic computed tomography of the chest without contrast. Radiation optimization: All CT scans at this facility use at least one of these dose optimization techniques: automated exposure control; mA and/or kV adjustment per patient size (includes targeted exams where dose is matched to clinical indication); or iterative reconstruction. COMPARISON: CT Chest wo Cont 02/02/2020 1:39 AM FINDINGS: Lungs: Diffuse patchy airspace opacities noted bilaterally. Moderate bronchiectatic changes are noted bilaterally. Atelectatic changes are noted within both lung bases. The lungs are hyperinflated, consistent with underlying small airways disease. Emphysematous changes noted bilaterally. Pleural spaces: Apical pleural thickening noted bilaterally. Heart: Unremarkable. No cardiomegaly. No pericardial effusion. Aorta: Unremarkable. No aortic aneurysm. Lymph nodes: Unremarkable. No enlarged lymph nodes. Bones/joints: The thoracic spine demonstrates mild degenerative changes at multiple levels. Soft tissues: Unremarkable. IMPRESSION: 1. Diffuse patchy airspace opacities noted bilaterally. 2. Moderate bronchiectatic changes are noted bilaterally. 3. The lungs are hyperinflated, consistent with underlying small airways disease. 4. Emphysematous changes noted bilaterally.
[2020-10-02] MEDS ORDERED: Ondansetron 4 MG/2 ML SDV IVPUSH PRN (21:28)
[2020-10-02] MEDS ORDERED: Acetaminophen 325 MG Tab PO PRN (21:28)
[2020-10-02] MEDS ORDERED: Potassium Chloride 10 MEQ Tab.ER PO ONE (21:31)
[2020-10-02] MEDS ORDERED: 50% Dextrose in Water 50 ML Syringe IVPUSH PRN (21:33)
[2020-10-02] MEDS ORDERED: Glucagon,Human Recombinant 1 MG Vial IM PRN (21:33)
--- NOTE | 2020-10-02 21:41 | PCM.HP ---
H&P History of Present Illness - General Date of Service: 10/02/20 Admit Problem/Dx: Admission Diagnosis/Problem Admission Diagnosis/Problem Hypoxia - History of Present Illness Initial Comments - Free Text/Narative: The patient is a 45-year-old female [facility] of [facility]. She states she started exhibiting dyspnea approximately 1 week prior to admission. This appears to have progressively worsened over the last 3 days. She admits to onset of rigors, nausea however upon further questioning is chronic and she has had episodes of emesis. She states that she has a cough again which is chronic however it is productive of clear sputum. She admits to wheeze, abdominal pain. She denies fever, diarrhea, peripheral edema, anosmia, dysgeusia, orthopnea. She states that she has developed chest pain with cough. She presents for further evaluation - Related Data Allergies/Adverse Reactions: Allergies Allergy/AdvReac Type Severity Reaction Status Date / Time No Known Allergies Allergy Verified 04/03/20 05:34 Home Medications: Home Meds cycloSPORINE [Restasis] 1 drop EYEBOTH BID 04/14/16 [History] metFORMIN HCl [Metformin HCl] 1,000 mg PO BIDMEALS 04/24/18 [History] Insulin Glargine,Hum.Rec.Anlog [Basaglar Kwikpen U-100] 37 unit SQ BID 10/31/18 [History] Mirabegron [Myrbetriq] 25 mg PO DAILY 10/31/18 [History] Pregabalin [Lyrica] 150 mg PO TID 10/31/18 [History] Rosuvastatin Calcium 20 mg PO DAILY 12/01/19 [History] predniSONE 10 mg PO DAILY 12/01/19 [History] DULoxetine [Cymbalta] 30 mg PO BEDTIME 02/06/20 [History] azaTHIOprine [Azathioprine] 50 mg PO DAILY 02/06/20 [History] buPROPion [buPROPion XL] 150 mg PO DAILY 02/06/20 [History] Amitriptyline [Elavil] 25 mg PO BEDTIME 07/27/20 [History] DULoxetine [Cymbalta] 60 mg PO DAILY 07/27/20 [History] Diclofenac Sodium [Voltaren 1% Gel] 2 g TOP BID 07/27/20 [History] Ergocalciferol (Vitamin D2) [Vitamin D2] 1.25 mg PO WEEKLY 07/27/20 [History] Pantoprazole [ProTONIX] 40 mg PO BIDMEALS 07/27/20 [History] Patient's Own Medication [Ptom] 700 mg IV Q24H 07/27/20 [History] Pilocarpine HCl [Salagen] 5 mg PO TID 07/27/20 [History] Sulfamethoxazole/Trimethoprim [Sulfamethoxazole-Tmp Ds Tablet] 1 each PO .3XWEEK 07/27/20 [History] rOPINIRole [Requip] 0.25 mg PO BEDTIME 07/27/20 [History] tiZANidine [Zanaflex] 1 mg PO Q8H PRN 07/27/20 [History] Amoxicillin/Clavulanate K [Augmentin 875-125 MG] 1 tab PO BID #14 tablet 07/28/20 [Rx] Furosemide [Lasix] 40 mg PO DAILY #30 tablet 07/28/20 [Rx] Past Medical History - Past Health History Medical/Surgical History: Denies Medical/Surgical History HEENT History: Reports: Cataract, Hard of Hearing, Impaired Vision, Other (See Below) Other HEENT History: wears glasses Cardiovascular History: Reports: Hypertension, SOB on Exertion Respiratory History: Reports: Bronchitis, Recurrent, Sleep Apnea, SOB Gastrointestinal History: Reports: Gastritis, Other (See Below) Other Gastrointestinal History: chronic stomach pains. ABCESS OF ABDOMEN Genitourinary History: Reports: Renal Disease, UTI, Recurrent, Other (See Below) Other Genitourinary History: RENAL ABSCESS [employer] History: Reports: , Other (See Below) Other OB/BYN History: 2 Musculoskeletal History: Reports: Amputation, Back Pain, Chronic, Fibromyalgia, RA, SLE, Other (See Below) Other Musculoskeletal History: Scoliosis of the spine w/ chronic back pain. OSTEOMELITIS OF RIGHT FOOT, healed 05/10/17 Neurological History: Reports: Other (See Below) Other Neuro History: SOMNOLENCE, DAYTIME, nerve damage to back and legs Psychiatric History: Reports: Anxiety, Eating Disorders Endocrine/Metabolic History: Reports: Diabetes, Type II, IDDM, Obesity/BMI 30+, Vitamin D Deficiency Hematologic History: Reports: Iron Deficiency, Other (See Below) Other Hematologic History: HX OF SEPSIS. HX OF MRSA INFECTION Immunologic History: Reports: Immunosuppression, Other (See Below) Other Immunologic History: RA and Lupus Oncologic (Cancer) History: Reports: None Dermatologic History: Reports: Cellulitis, Other (See Below) Other Dermatologic History: hx of mrsa. HX OF SKIN ULCERS OF FOOT, BILAT. DIABETIC SKIN ULCERS. CELLULITIS OF L ANTERIOR LOWER LEG. BIOPSY OF SKIN LESION - Infectious Disease History Infectious Disease History: Reports: Influenza, MRSA, Novel Coronavirus, Shingles Other Infectious Disease History: CELLULITIS - Past Surgical History Head Surgeries/Procedures: Reports: None HEENT Surgical History: Reports: Cataract Surgery Other HEENT Surgeries/Procedures: BILAT CATARACT EXTRACTION WITH LENS PLACEMENT Cardiovascular Surgical History: Reports: None Respiratory Surgical History: Reports: None GI Surgical History: Reports: None Other GI Surgeries/Procedures: pt states "to remove infection in my stomach". I & D OF ABDOMINAL ABSCESS Female Surgical History: Reports: Other (See Below) Other Female Surgeries/Procedures: cyst on her left kidney Endocrine Surgical History: Reports: None Neurological Surgical History: Reports: None Musculoskeletal Surgical History: Reports: Amputation, Other (See Below) Other Musculoskeletal Surgeries/Procedures:: right toe ampulation Oncologic Surgical History: Reports: None Dermatological Surgical History: Reports: Other (See Below) Social & Family History - Family History Family Medical History: No Pertinent Family History HEENT: Reports: None Cardiac: Reports: None Respiratory: Reports: None GI: Reports: None : Reports: None OBGYN: Reports: None Musculoskeletal: Reports: RA Neurological: Reports: None Psychiatric: Reports: Depression Endocrine/Metabolic: Reports: Diabetes, type II Hematologic: Reports: None Immunologic: Reports: None Dermatologic: Reports: None Oncologic: Reports: None - Tobacco Use Tobacco Use Status *Q: Never Tobacco User Second Hand Smoke Exposure: No - Caffeine Use Caffeine Use: Reports: Coffee, Soda Other Caffeine Use: 16oz daily Caffeine Use Comment: 3/day - Living Situation & Occupation Living situation: Reports: with Family H&P Review of Systems - Review of Systems: Review Of Systems: See Below General: Reports: Chills. Denies: No Symptoms HEENT: Reports: No Symptoms Pulmonary: Reports: Shortness of Breath, Cough Cardiovascular: Reports: No Symptoms Gastrointestinal: Reports: No Symptoms Genitourinary: Reports: No Symptoms Musculoskeletal: Reports: No Symptoms Skin: Reports: No Symptoms Psychiatric: Reports: No Symptoms Neurological: Reports: No Symptoms Hematologic/Lymphatic: Reports: No Symptoms Immunologic: Reports: No Symptoms Exam - Exam Exam: See Below - Vital Signs Vital Signs: Last Vital Signs Temp 97.0 F 10/02/20 15:14 Pulse 98 10/02/20 17:54 Resp 18 10/02/20 17:54 BP 124/65 10/02/20 17:54 Pulse Ox 98 10/02/20 17:54 - Exam General: Alert, Oriented, 4 HEENT: PERRLA, Hearing Intact, Mucosa Moist & [place], Nares Patent, Normal Nasal Septum, Posterior Pharynx Clear, Conjunctiva Clear, EOMI, EACs Clear, TMs Clear Neck: Supple, Trachea Midline, 2 Lungs: Clear to Auscultation, Normal Respiratory Effort Cardiovascular: Regular Rate, Regular Rhythm GI/Abdominal Exam: Normal Bowel Sounds, Soft, Non-Tender, No Organomegaly, No Distention, No Abnormal Bruit, No Mass, Pelvis Stable Back Exam: Normal Inspection, Full Range of Motion, NT Extremities: Normal Inspection, Normal Range of Motion, Non-Tender, No Pedal Edema, Normal Capillary Refill Peripheral Pulses: 2+: Carotid (L), Carotid (R), Brachial (L), Brachial (R), Radial (L), Radial (R), Femoral (L), Femoral (R), Popliteal (L), Popliteal (R), Posterior Tibial (L), Posterior Tibial (R), Dorsalis Pedis (L), Dorsalis Pedis (R) Skin: Warm, Dry, Intact Neurological: Cranial Nerves Intact, Reflexes Equal Bilateral Neuro Extensive - Mental Status: Alert, Oriented x3, Normal Mood/Affect, Normal Cognition Neuro Extensive - Motor, Sensory, Reflexes: CN II-XII Intact, Normal Gait, Normal Reflexes DTR: 2+: Bicep (L), Bicep (R), Tricep (L), Tricep (R), Patella (L), Patella (R), Achilles (L), Achilles (R) Psychiatric: Alert, Normal Affect, Normal Mood - Patient Data Lab Results Last 24 hrs: Laboratory Results - last 24 hr 10/02/20 10/02/20 10/02/20 Range/Units 15:49 15:49 15:49 WBC 11.8 H (5.0-10.0) 10^3/uL RBC 5.03 (4.2-5.4) 10^6/uL Hgb 14.0 D (12.0-16.0) g/dL Hct 43.1 (37.0-47.0) % MCV 85.7 D (80-100) fL MCH 27.8 (27.0-34.0) pg MCHC 32.5 L (33.0-35.0) g/dL Plt Count 357 (150-450) 10^3/uL Neut % (Auto) 69.3 (42.2-75.2) % Lymph % (Auto) 16.8 L (20.5-50.1) % [place] % (Auto) 11.4 H (2-8) % Eos % (Auto) 2.2 (1.0-3.0) % Baso % (Auto) 0.3 (0.0-1.0) % D-Dimer, Quantitative (0-400) ng/mL Sodium 140 (136-145) mmol/L Potassium 3.2 L D (3.5-5.1) mmol/L Chloride 101 (98-107) mmol/L Carbon Dioxide 22 (21-32) mmol/L Anion Gap 20.2 H (7-13) mEq/L BUN 20 H (7-18) mg/dL Creatinine 2.21 H (0.55-1.02) mg/dL Est Cr Clr Drug Dosing TNP Estimated GFR (MDRD) 24 BUN/Creatinine Ratio 9.0 (No establ ref range) Glucose 243 H (70-99) mg/dL Lactic Acid 2.8 H* (0.4-2.0) mmol/L Calcium 9.3 (8.5-10.1) mg/dL Total Bilirubin 0.3 (0.2-1.0) mg/dL AST 20 (15-37) U/L ALT 31 (14-59) U/L Alkaline Phosphatase 104 (46-116) U/L Troponin I High Sens 8 (<=51) pg/mL C-Reactive Protein (0.0-0.9) mg/dL Total Protein 7.9 (6.4-8.2) g/dL Albumin 3.3 L (3.4-5.0) g/dL Globulin 4.6 Albumin/Globulin Ratio 0.72 SARS-CoV-2 RNA (DIVYA) (NEGATIVE) 10/02/20 10/02/20 10/02/20 Range/Units 15:49 15:49 19:05 WBC (5.0-10.0) 10^3/uL RBC (4.2-5.4) 10^6/uL Hgb (12.0-16.0) g/dL Hct (37.0-47.0) % MCV (80-100) fL MCH (27.0-34.0) pg MCHC (33.0-35.0) g/dL Plt Count (150-450) 10^3/uL Neut % (Auto) (42.2-75.2) % Lymph % (Auto) (20.5-50.1) % [place] % (Auto) (2-8) % Eos % (Auto) (1.0-3.0) % Baso % (Auto) (0.0-1.0) % D-Dimer, Quantitative 415 H (0-400) ng/mL Sodium (136-145) mmol/L Potassium (3.5-5.1) mmol/L Chloride (98-107) mmol/L Carbon Dioxide (21-32) mmol/L Anion Gap (7-13) mEq/L BUN (7-18) mg/dL Creatinine (0.55-1.02) mg/dL Est Cr Clr Drug Dosing Estimated GFR (MDRD) BUN/Creatinine Ratio (No establ ref range) Glucose (70-99) mg/dL Lactic Acid 2.7 H* (0.4-2.0) mmol/L Calcium (8.5-10.1) mg/dL Total Bilirubin (0.2-1.0) mg/dL AST (15-37) U/L ALT (14-59) U/L Alkaline Phosphatase (46-116) U/L Troponin I High Sens (<=51) pg/mL C-Reactive Protein 9.9 H (0.0-0.9) mg/dL Total Protein (6.4-8.2) g/dL Albumin (3.4-5.0) g/dL Globulin Albumin/Globulin Ratio SARS-CoV-2 RNA (DIVYA) (NEGATIVE) 10/02/20 Range/Units 19:36 WBC (5.0-10.0) 10^3/uL RBC (4.2-5.4) 10^6/uL Hgb (12.0-16.0) g/dL Hct (37.0-47.0) % MCV (80-100) fL MCH (27.0-34.0) pg MCHC (33.0-35.0) g/dL Plt Count (150-450) 10^3/uL Neut % (Auto) (42.2-75.2) % Lymph % (Auto) (20.5-50.1) % [place] % (Auto) (2-8) % Eos % (Auto) (1.0-3.0) % Baso % (Auto) (0.0-1.0) % D-Dimer, Quantitative (0-400) ng/mL Sodium (136-145) mmol/L Potassium (3.5-5.1) mmol/L Chloride (98-107) mmol/L Carbon Dioxide (21-32) mmol/L Anion Gap (7-13) mEq/L BUN (7-18) mg/dL Creatinine (0.55-1.02) mg/dL Est Cr Clr Drug Dosing Estimated GFR (MDRD) BUN/Creatinine Ratio (No establ ref range) Glucose (70-99) mg/dL Lactic Acid (0.4-2.0) mmol/L Calcium (8.5-10.1) mg/dL Total Bilirubin (0.2-1.0) mg/dL AST (15-37) U/L ALT (14-59) U/L Alkaline Phosphatase (46-116) U/L Troponin I High Sens (<=51) pg/mL C-Reactive Protein (0.0-0.9) mg/dL Total Protein (6.4-8.2) g/dL Albumin (3.4-5.0) g/dL Globulin Albumin/Globulin Ratio SARS-CoV-2 RNA (DIVYA) Negative (NEGATIVE) Result Diagrams: 10/02/20 15:49 10/02/20 15:49 Qasim Results Last 24 hrs: Microbiology 10/02/20 16:41 Anaerobic Blood Culture - Final Blood - Arm, Right Problem List Initiated/Reviewed/Updated: Yes Orders Last 24hrs: Active Orders 24 hr Category Date Time Status Admission Diagnosis [ADT] Stat ADT 10/02/20 20:34 Ordered Patient Status [ADT] Stat ADT 10/02/20 20:34 Active Blood Glucose Check, Bedside [RC] WITHMEALSANDBED Care 10/02/20 21:28 Ordered CPAP Adult [RT BiPAP/CPAP] [RC] ASDIRECTED Care 10/02/20 21:35 Ordered Cardiac Monitoring [RC] CONTINUOUS Care 10/02/20 21:28 Ordered EKG Documentation Completion [RC] ROUTINE Care 10/03/20 06:00 Ordered Oxygen Therapy [RC] PRN Care 10/02/20 21:28 Ordered Peripheral IV Care [RC] . DIRECTED Care 10/02/20 21:29 Ordered Pulse Oximetry [RC] PRN Care 10/02/20 21:30 Ordered RT Aerosol Therapy [RC] ASDIRECTED Care 10/02/20 21:31 Ordered Up ad Janeth [RC] ASDIRECTED Care 10/02/20 21:28 Ordered Vital Signs [RC] Q4H Care 10/02/20 21:28 Ordered Consistent Carbohydrate Diet [DIET] Diet 10/02/20 Dinner Ordered BASIC METABOLIC PANEL,BMP [CHEM] Routine Lab 10/03/20 05:00 Ordered CBC WITH AUTO DIFF [HEME] Routine Lab 10/03/20 05:00 Ordered CULTURE BLOOD [BC] Stat Lab 10/02/20 16:41 Results CULTURE BLOOD [BC] Stat Lab 10/02/20 16:46 Received MAGNESIUM [CHEM] Routine Lab 10/03/20 05:00 Ordered PHOSPHORUS [CHEM] Routine Lab 10/03/20 05:00 Ordered PTH, INTACT [REF] Routine Lab 10/02/20 21:33 Ordered TROPONIN I HIGH SENSITIVITY [CHEM] Routine Lab 10/02/20 23:59 Ordered Acetaminophen [TylenoL] Med 10/02/20 21:28 Ordered 650 mg PO Q4H PRN Albuterol/Ipratropium [DuoNeb 3.0-0.5 MG/3 ML] Med 10/02/20 23:00 Ordered 3 ml NEB Q4HRRT Azithromycin [Zithromax] 500 mg Med 10/02/20 21:45 Ordered Sodium Chloride 0.9% [Normal Saline (AdvBag)] 250 ml IV Q24H Dextrose 50% in Water Med 10/02/20 21:33 Ordered 50 ml IVPUSH Q15M PRN Glucagon,Human Recombinant [GlucaGen] Med 10/02/20 21:33 Ordered 1 mg IM Q15M PRN Heparin Sodium Med 10/03/20 09:00 Ordered 5,000 units SUBCUT Q12HR Insulin Lispro [HumaLOG] Med 10/03/20 08:00 Ordered See Protocol SUBCUT WITHMEALSANDBED Ondansetron [Zofran] Med 10/02/20 21:28 Ordered 4 mg IVPUSH Q4H PRN Pantoprazole [ProTONIX] Med 10/03/20 06:00 Ordered 40 mg PO ACBREAKFAST Potassium Chloride [Klor-Con 10] Med 10/02/20 21:31 Once 40 meq PO ONETIME ONE Sodium Chloride 0.9% [Normal Saline] 1,000 ml Med 10/02/20 21:30 Ordered IV ASDIRECTED Sodium Chloride 0.9% [Saline Flush] Med 10/02/20 21:28 Ordered 10 ml FLUSH ASDIRECTED PRN cefTRIAXone [Rocephin] 1 gm Med 10/02/20 21:45 Ordered Sodium Chloride 0.9% [Normal Saline] 50 ml IV Q24H methylPREDNISolone Sod Succ [Solu-MEDROL] Med 10/02/20 21:45 Ordered 60 mg IVPUSH Q8H Blood Culture x2 Reflex Set [OM.PC] Stat Oth 10/02/20 16:19 Ordered Peripheral IV Insertion Adult [OM.PC] Routine Oth 10/02/20 21:28 Ordered Resuscitation Status Routine Resus Stat 10/02/20 21:28 Ordered Medication Orders Acetaminophen (Acetaminophen 325 Mg Tab) 650 mg PO Q4H PRN PRN Reason: Pain (Mild 1-3)/fever Albuterol/Ipratropium (Albuterol/Ipratropium 3.0-0.5 Mg/3 Ml Neb Soln) 3 ml NEB Q4HRRT NELLY Dextrose/Water (50% Dextrose In Water 50 Ml Syringe) 50 ml IVPUSH Q15M PRN PRN Reason: Hypoglycemia Glucagon (Glucagon,Human Recombinant 1 Mg Vial) 1 mg IM Q15M PRN PRN Reason: Hypoglycemia Heparin Sodium (Porcine) (Heparin Sodium 5,000 Units/Ml Vial) 5,000 units SUBCUT Q12HR NELLY Sodium Chloride (Normal Saline) 1,000 mls @ 100 mls/hr IV ASDIRECTED NELLY Azithromycin 500 mg/ Sodium (Chloride) 250 mls @ 250 mls/hr IV Q24H NELLY Ceftriaxone Sodium 1 gm/ (Sodium Chloride) 50 mls @ 100 mls/hr IV Q24H [facility] Insulin Human Lispro (Insulin Lispro 100 Units/Ml 3 Ml Vial) 0 unit SUBCUT WITHMEALSANDBED NELLY; Protocol Methylprednisolone Sodium Succinate (Methylprednisolone Sodium Succinate 40 Mg/1 Ml Sdv) 60 mg IVPUSH Q8H NELLY Ondansetron HCl (Ondansetron 4 Mg/2 Ml Sdv) 4 mg IVPUSH Q4H PRN PRN Reason: Nausea/Vomiting Pantoprazole Sodium (Pantoprazole 40 Mg Tab.Cr) 40 mg PO ACBREAKFAST NELLY Potassium Chloride (Potassium Chloride 10 Meq Tab.Er) 40 meq PO ONETIME ONE Stop: 10/02/20 21:32 Sodium Chloride (Sodium Chloride 0.9% 10 Ml Syringe) 10 ml FLUSH ASDIRECTED PRN PRN Reason: Keep Vein Open Assessment/Plan Comment:: Surgical History: Right hand surgery, left hand surgery, right first toe amputation, bilateral cat aract surgery, right shoulder surgery, previous documentation of gastric surgery which the patient denies Family History: Stroke, diabetes, coronary artery disease Social History: Tobacco: Former smoker Alcohol: Denies Caffeine: Coffee, cola, tea Drugs: Never Allergies: Rituximab. Patient has documented allergy to muscle relaxers which he denies Code Status: DNR, DNI Assessment / Plan: Dyspnea secondary to COPD exacerbation and pneumonia Pneumonia. Azithromycin 500 mg IV daily plus Rocephin 1 g IV daily plus DuoNeb every 4 hours COPD, non-O2 dependent. Solu-Medrol 60 mg IV q. 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 Will monitor creatinine level intermittently. IV normal saline at 100 mL/h Hypokalemia. Will monitor potassium levels intermittently and supplement as necessary History medical noncompliance. Patient be counseled regard medical compliance Hepatic steatosis Diverticulosis Muscle spasm Restless leg syndrome Depression Diabetes. Will check fingerstick glucose before every meal and at bedtime and provide insulin/scale GERD/history of gastritis. Protonix 40 mg p.o. daily Hyperlipidemia Hypertension Obesity. Patient be counseled regarding lifestyle modification Degenerative disc disease Obstructive sleep apnea. 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 Heparin 5000 units subcutaneously every 12 hours Disposition: Anticipate discharge within 24 hours. At the time of admission, the patient's home medications were pending input to the EMR/DHR system. Once their input, they will be reviewed and reconciled END OF DOCTOR EMAMIS HISTORY AND PHYSICAL / CONSULTATION NOTE
[2020-10-02] MEDS ORDERED: Patient's Own Medication 1 Each IVPUSH SCH (22:15)
[2020-10-02] MEDS ORDERED: Insulin Lispro 100 Units/ML 3 ML Vial SUBCUT ONE ×2 (22:19→23:50)
[2020-10-02] MEDS: Insulin Glarg,Human.Rec.Analog 100 Unit/ML SUBCUT SCH (22:48)
[2020-10-02] MEDS: Sodium Chloride 0.9% 1,000 ML IV SCH (22:49)
[2020-10-02] MEDS: Azithromycin 500 MG in Sodium Chloride 0.9% 250 ML IV SCH (22:49)
[2020-10-02] MEDS: Albuterol/Ipratropium 3.0-0.5 MG/3 ML Neb Soln NEB SCH (22:49)
[2020-10-02] MEDS: Sodium Chloride 0.9% 10 ML Syringe FLUSH PRN (22:52)
[2020-10-02] MEDS: oxyCODONE 5 MG Tab PO PRN (23:01)
[2020-10-03] MEDS: methylPREDNISolone Sodium Succinate 40 MG/1 ML SDV IVPUSH SCH ×3 (00:41→17:11)
[2020-10-03] MEDS ORDERED: Insulin Lispro 100 Units/ML 3 ML Vial SUBCUT ONE ×7 (01:49→23:55)
[2020-10-03] MEDS: Albuterol/Ipratropium 3.0-0.5 MG/3 ML Neb Soln NEB SCH ×6 (03:03→22:31)
[2020-10-03] MEDS: Pantoprazole 40 MG Tab.CR PO SCH (06:26)
[2020-10-03] MEDS ORDERED: Magnesium Sulfate/Water 2 GM in Premix Bag 1 BAG IV ONE (07:23)
--- NOTE | 2020-10-03 07:32 | PCM.PN ---
- General Info Date of Service: 10/03/20 Subjective Update: The patient Sergo that her respiratory status has improved compared to my initial encounter with her. She denies fever, rigors, vomiting, wheeze, abdominal pain, chest pain. She admits to cough which is productive of clear sputum, and intermittent nausea however this is chronic for her. I explained to the patient her current medical condition and plan of care and I have answered all of her questions - Review of Systems General: Reports: No Symptoms HEENT: Reports: No Symptoms Pulmonary: Reports: Cough Cardiovascular: Reports: No Symptoms Gastrointestinal: Reports: No Symptoms Genitourinary: Reports: No Symptoms Musculoskeletal: Reports: No Symptoms Skin: Reports: No Symptoms Neurological: Reports: No Symptoms Psychiatric: Reports: No Symptoms - Patient Data Vitals - Most Recent: Last Vital Signs Temp 98.4 F 10/03/20 04:00 Pulse 83 10/03/20 04:00 Resp 20 10/03/20 04:00 BP 105/57 L 10/03/20 04:00 Pulse Ox 95 10/03/20 04:00 Weight - Most Recent: 245 lb 3.2 oz I&O - Last 24 Hours: Intake & Output 10/02/20 10/03/20 10/03/20 22:59 06:59 14:59 Intake Total 450 Balance 450 Lab Results Last 24 Hours: Laboratory Results - last 24 hr 10/02/20 10/02/20 10/02/20 Range/Units 15:49 15:49 15:49 WBC 11.8 H (5.0-10.0) 10^3/uL RBC 5.03 (4.2-5.4) 10^6/uL Hgb 14.0 D (12.0-16.0) g/dL Hct 43.1 (37.0-47.0) % MCV 85.7 D (80-100) fL MCH 27.8 (27.0-34.0) pg MCHC 32.5 L (33.0-35.0) g/dL Plt Count 357 (150-450) 10^3/uL Neut % (Auto) 69.3 (42.2-75.2) % Lymph % (Auto) 16.8 L (20.5-50.1) % [place] % (Auto) 11.4 H (2-8) % Eos % (Auto) 2.2 (1.0-3.0) % Baso % (Auto) 0.3 (0.0-1.0) % Add Manual Diff Neutrophils % (Manual) (42-75) % Band Neutrophils % % Lymphocytes % (Manual) (20-50) % Monocytes % (Manual) (2-8) % D-Dimer, Quantitative (0-400) ng/mL Sodium 140 (136-145) mmol/L Potassium 3.2 L D (3.5-5.1) mmol/L Chloride 101 (98-107) mmol/L Carbon Dioxide 22 (21-32) mmol/L Anion Gap 20.2 H (7-13) mEq/L BUN 20 H (7-18) mg/dL Creatinine 2.21 H (0.55-1.02) mg/dL Est Cr Clr Drug Dosing TNP Estimated GFR (MDRD) 24 BUN/Creatinine Ratio 9.0 (No establ ref range) Glucose 243 H (70-99) mg/dL POC Glucose (70-99) mg/dL Lactic Acid 2.8 H* (0.4-2.0) mmol/L Calcium 9.3 (8.5-10.1) mg/dL Phosphorus (2.6-4.7) mg/dL Magnesium (1.8-2.4) mg/dL Total Bilirubin 0.3 (0.2-1.0) mg/dL AST 20 (15-37) U/L ALT 31 (14-59) U/L Alkaline Phosphatase 104 (46-116) U/L Troponin I High Sens 8 (<=51) pg/mL C-Reactive Protein (0.0-0.9) mg/dL Total Protein 7.9 (6.4-8.2) g/dL Albumin 3.3 L (3.4-5.0) g/dL Globulin 4.6 Albumin/Globulin Ratio 0.72 SARS-CoV-2 RNA (DIVYA) (NEGATIVE) 10/02/20 10/02/20 10/02/20 Range/Units 15:49 15:49 19:05 WBC (5.0-10.0) 10^3/uL RBC (4.2-5.4) 10^6/uL Hgb (12.0-16.0) g/dL Hct (37.0-47.0) % MCV (80-100) fL MCH (27.0-34.0) pg MCHC (33.0-35.0) g/dL Plt Count (150-450) 10^3/uL Neut % (Auto) (42.2-75.2) % Lymph % (Auto) (20.5-50.1) % [place] % (Auto) (2-8) % Eos % (Auto) (1.0-3.0) % Baso % (Auto) (0.0-1.0) % Add Manual Diff Neutrophils % (Manual) (42-75) % Band Neutrophils % % Lymphocytes % (Manual) (20-50) % Monocytes % (Manual) (2-8) % D-Dimer, Quantitative 415 H (0-400) ng/mL Sodium (136-145) mmol/L Potassium (3.5-5.1) mmol/L Chloride (98-107) mmol/L Carbon Dioxide (21-32) mmol/L Anion Gap (7-13) mEq/L BUN (7-18) mg/dL Creatinine (0.55-1.02) mg/dL Est Cr Clr Drug Dosing Estimated GFR (MDRD) BUN/Creatinine Ratio (No establ ref range) Glucose (70-99) mg/dL POC Glucose (70-99) mg/dL Lactic Acid 2.7 H* (0.4-2.0) mmol/L Calcium (8.5-10.1) mg/dL Phosphorus (2.6-4.7) mg/dL Magnesium (1.8-2.4) mg/dL Total Bilirubin (0.2-1.0) mg/dL AST (15-37) U/L ALT (14-59) U/L Alkaline Phosphatase (46-116) U/L Troponin I High Sens (<=51) pg/mL C-Reactive Protein 9.9 H (0.0-0.9) mg/dL Total Protein (6.4-8.2) g/dL Albumin (3.4-5.0) g/dL Globulin Albumin/Globulin Ratio SARS-CoV-2 RNA (DIVYA) (NEGATIVE) 10/02/20 10/02/20 10/02/20 Range/Units 19:36 22:15 22:16 WBC (5.0-10.0) 10^3/uL RBC (4.2-5.4) 10^6/uL Hgb (12.0-16.0) g/dL Hct (37.0-47.0) % MCV (80-100) fL MCH (27.0-34.0) pg MCHC (33.0-35.0) g/dL Plt Count (150-450) 10^3/uL Neut % (Auto) (42.2-75.2) % Lymph % (Auto) (20.5-50.1) % [place] % (Auto) (2-8) % Eos % (Auto) (1.0-3.0) % Baso % (Auto) (0.0-1.0) % Add Manual Diff Neutrophils % (Manual) (42-75) % Band Neutrophils % % Lymphocytes % (Manual) (20-50) % Monocytes % (Manual) (2-8) % D-Dimer, Quantitative (0-400) ng/mL Sodium (136-145) mmol/L Potassium (3.5-5.1) mmol/L Chloride (98-107) mmol/L Carbon Dioxide (21-32) mmol/L Anion Gap (7-13) mEq/L BUN (7-18) mg/dL Creatinine (0.55-1.02) mg/dL Est Cr Clr Drug Dosing Estimated GFR (MDRD) BUN/Creatinine Ratio (No establ ref range) Glucose (70-99) mg/dL POC Glucose 414 H* 420 H* (70-99) mg/dL Lactic Acid (0.4-2.0) mmol/L Calcium (8.5-10.1) mg/dL Phosphorus (2.6-4.7) mg/dL Magnesium (1.8-2.4) mg/dL Total Bilirubin (0.2-1.0) mg/dL AST (15-37) U/L ALT (14-59) U/L Alkaline Phosphatase (46-116) U/L Troponin I High Sens (<=51) pg/mL C-Reactive Protein (0.0-0.9) mg/dL Total Protein (6.4-8.2) g/dL Albumin (3.4-5.0) g/dL Globulin Albumin/Globulin Ratio SARS-CoV-2 RNA (DIVYA) Negative (NEGATIVE) 10/02/20 10/02/20 10/02/20 Range/Units 23:43 23:48 23:58 WBC (5.0-10.0) 10^3/uL RBC (4.2-5.4) 10^6/uL Hgb (12.0-16.0) g/dL Hct (37.0-47.0) % MCV (80-100) fL MCH (27.0-34.0) pg MCHC (33.0-35.0) g/dL Plt Count (150-450) 10^3/uL Neut % (Auto) (42.2-75.2) % Lymph % (Auto) (20.5-50.1) % [place] % (Auto) (2-8) % Eos % (Auto) (1.0-3.0) % Baso % (Auto) (0.0-1.0) % Add Manual Diff Neutrophils % (Manual) (42-75) % Band Neutrophils % % Lymphocytes % (Manual) (20-50) % Monocytes % (Manual) (2-8) % D-Dimer, Quantitative (0-400) ng/mL Sodium (136-145) mmol/L Potassium (3.5-5.1) mmol/L Chloride (98-107) mmol/L Carbon Dioxide (21-32) mmol/L Anion Gap (7-13) mEq/L BUN (7-18) mg/dL Creatinine (0.55-1.02) mg/dL Est Cr Clr Drug Dosing Estimated GFR (MDRD) BUN/Creatinine Ratio (No establ ref range) Glucose (70-99) mg/dL POC Glucose 488 H* 489 H* (70-99) mg/dL Lactic Acid (0.4-2.0) mmol/L Calcium (8.5-10.1) mg/dL Phosphorus (2.6-4.7) mg/dL Magnesium (1.8-2.4) mg/dL Total Bilirubin (0.2-1.0) mg/dL AST (15-37) U/L ALT (14-59) U/L Alkaline Phosphatase (46-116) U/L Troponin I High Sens 6 (<=51) pg/mL C-Reactive Protein (0.0-0.9) mg/dL Total Protein (6.4-8.2) g/dL Albumin (3.4-5.0) g/dL Globulin Albumin/Globulin Ratio SARS-CoV-2 RNA (DIVYA) (NEGATIVE) 10/03/20 10/03/20 10/03/20 Range/Units 01:37 03:22 05:45 WBC 9.2 (5.0-10.0) 10^3/uL RBC 4.28 (4.2-5.4) 10^6/uL Hgb 11.8 L D (12.0-16.0) g/dL Hct 37.1 (37.0-47.0) % MCV 86.7 (80-100) fL MCH 27.6 (27.0-34.0) pg MCHC 31.8 L (33.0-35.0) g/dL Plt Count 330 (150-450) 10^3/uL Neut % (Auto) 87.3 H (42.2-75.2) % Lymph % (Auto) 9.7 L (20.5-50.1) % [place] % (Auto) 2.9 (2-8) % Eos % (Auto) 0.0 L (1.0-3.0) % Baso % (Auto) 0.1 (0.0-1.0) % Add Manual Diff Yes Neutrophils % (Manual) 72 (42-75) % Band Neutrophils % 13 % Lymphocytes % (Manual) 14 L (20-50) % Monocytes % (Manual) 1 L (2-8) % D-Dimer, Quantitative (0-400) ng/mL Sodium (136-145) mmol/L Potassium (3.5-5.1) mmol/L Chloride (98-107) mmol/L Carbon Dioxide (21-32) mmol/L Anion Gap (7-13) mEq/L BUN (7-18) mg/dL Creatinine (0.55-1.02) mg/dL Est Cr Clr Drug Dosing Estimated GFR (MDRD) BUN/Creatinine Ratio (No establ ref range) Glucose (70-99) mg/dL POC Glucose 479 H* 321 H (70-99) mg/dL Lactic Acid (0.4-2.0) mmol/L Calcium (8.5-10.1) mg/dL Phosphorus (2.6-4.7) mg/dL Magnesium (1.8-2.4) mg/dL Total Bilirubin (0.2-1.0) mg/dL AST (15-37) U/L ALT (14-59) U/L Alkaline Phosphatase (46-116) U/L Troponin I High Sens (<=51) pg/mL C-Reactive Protein (0.0-0.9) mg/dL Total Protein (6.4-8.2) g/dL Albumin (3.4-5.0) g/dL Globulin Albumin/Globulin Ratio SARS-CoV-2 RNA (DIVYA) (NEGATIVE) 10/03/20 Range/Units 05:45 WBC (5.0-10.0) 10^3/uL RBC (4.2-5.4) 10^6/uL Hgb (12.0-16.0) g/dL Hct (37.0-47.0) % MCV (80-100) fL MCH (27.0-34.0) pg MCHC (33.0-35.0) g/dL Plt Count (150-450) 10^3/uL Neut % (Auto) (42.2-75.2) % Lymph % (Auto) (20.5-50.1) % [place] % (Auto) (2-8) % Eos % (Auto) (1.0-3.0) % Baso % (Auto) (0.0-1.0) % Add Manual Diff Neutrophils % (Manual) (42-75) % Band Neutrophils % % Lymphocytes % (Manual) (20-50) % Monocytes % (Manual) (2-8) % D-Dimer, Quantitative (0-400) ng/mL Sodium 140 (136-145) mmol/L Potassium 4.0 (3.5-5.1) mmol/L Chloride 103 (98-107) mmol/L Carbon Dioxide 21 (21-32) mmol/L Anion Gap 20.0 H (7-13) mEq/L BUN 29 H (7-18) mg/dL Creatinine 2.59 H (0.55-1.02) mg/dL Est Cr Clr Drug Dosing 27.38 Estimated GFR (MDRD) 20 BUN/Creatinine Ratio (No establ ref range) Glucose 323 H (70-99) mg/dL POC Glucose (70-99) mg/dL Lactic Acid (0.4-2.0) mmol/L Calcium 9.0 (8.5-10.1) mg/dL Phosphorus 2.4 L (2.6-4.7) mg/dL Magnesium 1.7 L (1.8-2.4) mg/dL Total Bilirubin (0.2-1.0) mg/dL AST (15-37) U/L ALT (14-59) U/L Alkaline Phosphatase (46-116) U/L Troponin I High Sens (<=51) pg/mL C-Reactive Protein (0.0-0.9) mg/dL Total Protein (6.4-8.2) g/dL Albumin (3.4-5.0) g/dL Globulin Albumin/Globulin Ratio SARS-CoV-2 RNA (DIVYA) (NEGATIVE) Qasim Results Last 24 Hours: Microbiology 10/02/20 16:41 Anaerobic Blood Culture - Final Blood - Arm, Right Med Orders - Current: Current Medications Acetaminophen (Acetaminophen 325 Mg Tab) 650 mg PO Q4H PRN PRN Reason: Pain (Mild 1-3)/fever Albuterol/Ipratropium (Albuterol/Ipratropium 3.0-0.5 Mg/3 Ml Neb Soln) 3 ml NEB Q4HRRT [facility] Last Admin: 10/03/20 03:03 Dose: 3 ml Documented by: Amitriptyline HCl (Amitriptyline 25 Mg Tab) 25 mg PO BEDTIME [facility] Azathioprine (Azathioprine 50 Mg Tab) 50 mg PO DAILY [facility] Bupropion HCl (Bupropion 150 Mg Tab.Er) 150 mg PO DAILY [facility] Dextrose/Water (50% Dextrose In Water 50 Ml Syringe) 50 ml IVPUSH Q15M PRN PRN Reason: Hypoglycemia Duloxetine HCl (Duloxetine 30 Mg Cap) 30 mg PO BEDTIME [facility] Duloxetine HCl (Duloxetine 30 Mg Cap) 60 mg PO DAILY [facility] Glucagon (Glucagon,Human Recombinant 1 Mg Vial) 1 mg IM Q15M PRN PRN Reason: Hypoglycemia Heparin Sodium (Porcine) (Heparin Sodium 5,000 Units/Ml Vial) 5,000 units SUBCUT Q12HR [facility] Sodium Chloride (Normal Saline) 1,000 mls @ 100 mls/hr IV ASDIRECTED [facility] Last Admin: 10/02/20 22:49 Dose: 100 mls/hr Documented by: Azithromycin 500 mg/ Sodium (Chloride) 250 mls @ 250 mls/hr IV Q24H [facility] Last Infusion: 10/02/20 23:50 Dose: Infused Documented by: Ceftriaxone Sodium 1 gm/ (Sodium Chloride) 50 mls @ 100 mls/hr IV Q24H [facility] Magnesium Sulfate 2 gm/ Premix 50 mls @ 25 mls/hr IV ONETIME ONE Stop: 10/03/20 09:22 Insulin Glargine (Insulin Glarg,Human.Rec.Analog 100 Unit/Ml) 37 unit SUBCUT BI D [facility] Last Admin: 10/02/20 22:48 Dose: 37 units Documented by: Insulin Human Lispro (Insulin Lispro 100 Units/Ml 3 Ml Vial) 0 unit SUBCUT WITHMEALSANDBED [facility]; Protocol Methylprednisolone Sodium Succinate (Methylprednisolone Sodium Succinate 40 Mg/1 Ml Sdv) 60 mg IVPUSH Q8H [facility] Last Admin: 10/03/20 00:41 Dose: 60 mg Documented by: Non-Formulary Medication (Cyclosporine [Restasis]) 1 drop EYEBOTH BID [facility] Non-Formulary Medication (Diclofenac Sodium [Voltaren 1% Gel]) 2 g TOP BID [facility] Non-Formulary Medication (Mirabegron [Myrbetriq]) 25 mg PO DAILY [facility] Non-Formulary Medication (Pilocarpine Hcl [Salagen]) 5 mg PO TID [facility] Ondansetron HCl (Ondansetron 4 Mg/2 Ml Sdv) 4 mg IVPUSH Q4H PRN PRN Reason: Nausea/Vomiting Oxycodone HCl (Oxycodone 5 Mg Tab) 5 mg PO Q6H PRN PRN Reason: Pain Last Admin: 10/02/20 23:01 Dose: 5 mg Documented by: Pantoprazole Sodium (Pantoprazole 40 Mg Tab.Cr) 40 mg PO ACBREAKFAST [facility] Last Admin: 10/03/20 06:26 Dose: 40 mg Documented by: Patient Own Medication (Patient's Own Medication 1 Each) each IVPUSH .WEEKLY [facility] Pregabalin (Pregabalin 150 Mg Cap) 150 mg PO TID [facility] Ropinirole HCl (Ropinirole 0.25 Mg Tab) 0.25 mg PO BEDTIME [facility] Rosuvastatin Calcium (Rosuvastatin 10 Mg Tab) 20 mg PO DAILY [facility] Sodium Chloride (Sodium Chloride 0.9% 10 Ml Syringe) 10 ml FLUSH ASDIRECTED PRN PRN Reason: Keep Vein Open Last Admin: 10/02/20 22:52 Dose: 10 ml Documented by: Discontinued Medications Ceftriaxone Sodium 1 gm/ (Sodium Chloride) 50 mls @ 100 mls/hr IV ONETIME ONE Stop: 10/02/20 16:53 Last Admin: 10/02/20 16:41 Dose: 100 mls/hr Documented by: Insulin Human Lispro (Insulin Lispro 100 Units/Ml 3 Ml Vial) 30 unit SUBCUT ONETIME ONE Stop: 10/02/20 22:20 Last Admin: 10/02/20 22:47 Dose: 30 units Documented by: Insulin Human Lispro (Insulin Lispro 100 Units/Ml 3 Ml Vial) 45 unit SUBCUT ONETIME ONE Stop: 10/02/20 23:51 Last Admin: 10/03/20 00:25 Dose: 45 units Documented by: Insulin Human Lispro (Insulin Lispro 100 Units/Ml 3 Ml Vial) 55 unit SUBCUT ONETIME ONE Stop: 10/03/20 01:50 Last Admin: 10/03/20 02:18 Dose: 55 units Documented by: Ketorolac Tromethamine (Ketorolac 30 Mg/Ml Sdv) 30 mg IVPUSH ONETIME ONE Stop: 10/02/20 17:54 Last Admin: 10/02/20 17:58 Dose: 30 mg Documented by: Methylprednisolone Sodium Succinate (Methylprednisolone Sodium Succinate 125 Mg/2 Ml Sdv) 125 mg IVPUSH ONETIME ONE Stop: 10/02/20 16:26 Last Admin: 10/02/20 16:40 Dose: 125 mg Documented by: Potassium Chloride (Potassium Chloride 10 Meq Tab.Er) 40 meq PO ONETIME ONE Stop: 10/02/20 21:32 Last Admin: 10/02/20 22:48 Dose: 40 meq Documented by: - Exam General: Alert, Oriented HEENT: Pupils Equal, Pupils Reactive, EOMI, Mucous Membr. Moist/[place] Neck: Supple Lungs: Clear to Auscultation, Normal Respiratory Effort Cardiovascular: Regular Rate, Regular Rhythm GI/Abdominal Exam: Normal Bowel Sounds, Soft, Non-Tender, No Organomegaly, No Distention, No Abnormal Bruit, No Mass, Pelvis Stable Back Exam: Normal Inspection, Full Range of Motion Extremities: Normal Inspection, Normal Range of Motion, Non-Tender, No Pedal Edema, Normal Capillary Refill Peripheral Pulses: 2+: Carotid (L), Carotid (R), Brachial (L), Brachial (R), Radial (L), Radial (R), Femoral (L), Femoral (R), Popliteal (L), Popliteal (R), Posterior Tibial (L), Posterior Tibial (R), Dorsalis Pedis (L), Dorsalis Pedis (R) Skin: Warm, Dry, Intact Wound/Incisions: Healing Well Neurological: No New Focal Deficit Psy/Mental Status: Alert, Normal Affect, Normal Mood - Patient Data Lab Results Last 24 hrs: Laboratory Results - last 24 hr 10/02/20 10/02/20 10/02/20 Range/Units 15:49 15:49 15:49 WBC 11.8 H (5.0-10.0) 10^3/uL RBC 5.03 (4.2-5.4) 10^6/uL Hgb 14.0 D (12.0-16.0) g/dL Hct 43.1 (37.0-47.0) % MCV 85.7 D (80-100) fL MCH 27.8 (27.0-34.0) pg MCHC 32.5 L (33.0-35.0) g/dL Plt Count 357 (150-450) 10^3/uL Neut % (Auto) 69.3 (42.2-75.2) % Lymph % (Auto) 16.8 L (20.5-50.1) % [place] % (Auto) 11.4 H (2-8) % Eos % (Auto) 2.2 (1.0-3.0) % Baso % (Auto) 0.3 (0.0-1.0) % Add Manual Diff Neutrophils % (Manual) (42-75) % Band Neutrophils % % Lymphocytes % (Manual) (20-50) % Monocytes % (Manual) (2-8) % D-Dimer, Quantitative (0-400) ng/mL Sodium 140 (136-145) mmol/L Potassium 3.2 L D (3.5-5.1) mmol/L Chloride 101 (98-107) mmol/L Carbon Dioxide 22 (21-32) mmol/L Anion Gap 20.2 H (7-13) mEq/L BUN 20 H (7-18) mg/dL Creatinine 2.21 H (0.55-1.02) mg/dL Est Cr Clr Drug Dosing TNP Estimated GFR (MDRD) 24 BUN/Creatinine Ratio 9.0 (No establ ref range) Glucose 243 H (70-99) mg/dL POC Glucose (70-99) mg/dL Lactic Acid 2.8 H* (0.4-2.0) mmol/L Calcium 9.3 (8.5-10.1) mg/dL Phosphorus (2.6-4.7) mg/dL Magnesium (1.8-2.4) mg/dL Total Bilirubin 0.3 (0.2-1.0) mg/dL AST 20 (15-37) U/L ALT 31 (14-59) U/L Alkaline Phosphatase 104 (46-116) U/L Troponin I High Sens 8 (<=51) pg/mL C-Reactive Protein (0.0-0.9) mg/dL Total Protein 7.9 (6.4-8.2) g/dL Albumin 3.3 L (3.4-5.0) g/dL Globulin 4.6 Albumin/Globulin Ratio 0.72 SARS-CoV-2 RNA (DIVYA) (NEGATIVE) 10/02/20 10/02/20 10/02/20 Range/Units 15:49 15:49 19:05 WBC (5.0-10.0) 10^3/uL RBC (4.2-5.4) 10^6/uL Hgb (12.0-16.0) g/dL Hct (37.0-47.0) % MCV (80-100) fL MCH (27.0-34.0) pg MCHC (33.0-35.0) g/dL Plt Count (150-450) 10^3/uL Neut % (Auto) (42.2-75.2) % Lymph % (Auto) (20.5-50.1) % [place] % (Auto) (2-8) % Eos % (Auto) (1.0-3.0) % Baso % (Auto) (0.0-1.0) % Add Manual Diff Neutrophils % (Manual) (42-75) % Band Neutrophils % % Lymphocytes % (Manual) (20-50) % Monocytes % (Manual) (2-8) % D-Dimer, Quantitative 415 H (0-400) ng/mL Sodium (136-145) mmol/L Potassium (3.5-5.1) mmol/L Chloride (98-107) mmol/L Carbon Dioxide (21-32) mmol/L Anion Gap (7-13) mEq/L BUN (7-18) mg/dL Creatinine (0.55-1.02) mg/dL Est Cr Clr Drug Dosing Estimated GFR (MDRD) BUN/Creatinine Ratio (No establ ref range) Glucose (70-99) mg/dL POC Glucose (70-99) mg/dL Lactic Acid 2.7 H* (0.4-2.0) mmol/L Calcium (8.5-10.1) mg/dL Phosphorus (2.6-4.7) mg/dL Magnesium (1.8-2.4) mg/dL Total Bilirubin (0.2-1.0) mg/dL AST (15-37) U/L ALT (14-59) U/L Alkaline Phosphatase (46-116) U/L Troponin I High Sens (<=51) pg/mL C-Reactive Protein 9.9 H (0.0-0.9) mg/dL Total Protein (6.4-8.2) g/dL Albumin (3.4-5.0) g/dL Globulin Albumin/Globulin Ratio SARS-CoV-2 RNA (DIVYA) (NEGATIVE) 10/02/20 10/02/20 10/02/20 Range/Units 19:36 22:15 22:16 WBC (5.0-10.0) 10^3/uL RBC (4.2-5.4) 10^6/uL Hgb (12.0-16.0) g/dL Hct (37.0-47.0) % MCV (80-100) fL MCH (27.0-34.0) pg MCHC (33.0-35.0) g/dL Plt Count (150-450) 10^3/uL Neut % (Auto) (42.2-75.2) % Lymph % (Auto) (20.5-50.1) % [place] % (Auto) (2-8) % Eos % (Auto) (1.0-3.0) % Baso % (Auto) (0.0-1.0) % Add Manual Diff Neutrophils % (Manual) (42-75) % Band Neutrophils % % Lymphocytes % (Manual) (20-50) % Monocytes % (Manual) (2-8) % D-Dimer, Quantitative (0-400) ng/mL Sodium (136-145) mmol/L Potassium (3.5-5.1) mmol/L Chloride (98-107) mmol/L Carbon Dioxide (21-32) mmol/L Anion Gap (7-13) mEq/L BUN (7-18) mg/dL Creatinine (0.55-1.02) mg/dL Est Cr Clr Drug Dosing Estimated GFR (MDRD) BUN/Creatinine Ratio (No establ ref range) Glucose (70-99) mg/dL POC Glucose 414 H* 420 H* (70-99) mg/dL Lactic Acid (0.4-2.0) mmol/L Calcium (8.5-10.1) mg/dL Phosphorus (2.6-4.7) mg/dL Magnesium (1.8-2.4) mg/dL Total Bilirubin (0.2-1.0) mg/dL AST (15-37) U/L ALT (14-59) U/L Alkaline Phosphatase (46-116) U/L Troponin I High Sens (<=51) pg/mL C-Reactive Protein (0.0-0.9) mg/dL Total Protein (6.4-8.2) g/dL Albumin (3.4-5.0) g/dL Globulin Albumin/Globulin Ratio SARS-CoV-2 RNA (DIVYA) Negative (NEGATIVE) 10/02/20 10/02/20 10/02/20 Range/Units 23:43 23:48 23:58 WBC (5.0-10.0) 10^3/uL RBC (4.2-5.4) 10^6/uL Hgb (12.0-16.0) g/dL Hct (37.0-47.0) % MCV (80-100) fL MCH (27.0-34.0) pg MCHC (33.0-35.0) g/dL Plt Count (150-450) 10^3/uL Neut % (Auto) (42.2-75.2) % Lymph % (Auto) (20.5-50.1) % [place] % (Auto) (2-8) % Eos % (Auto) (1.0-3.0) % Baso % (Auto) (0.0-1.0) % Add Manual Diff Neutrophils % (Manual) (42-75) % Band Neutrophils % % Lymphocytes % (Manual) (20-50) % Monocytes % (Manual) (2-8) % D-Dimer, Quantitative (0-400) ng/mL Sodium (136-145) mmol/L Potassium (3.5-5.1) mmol/L Chloride (98-107) mmol/L Carbon Dioxide (21-32) mmol/L Anion Gap (7-13) mEq/L BUN (7-18) mg/dL Creatinine (0.55-1.02) mg/dL Est Cr Clr Drug Dosing Estimated GFR (MDRD) BUN/Creatinine Ratio (No establ ref range) Glucose (70-99) mg/dL POC Glucose 488 H* 489 H* (70-99) mg/dL Lactic Acid (0.4-2.0) mmol/L Calcium (8.5-10.1) mg/dL Phosphorus (2.6-4.7) mg/dL Magnesium (1.8-2.4) mg/dL Total Bilirubin (0.2-1.0) mg/dL AST (15-37) U/L ALT (14-59) U/L Alkaline Phosphatase (46-116) U/L Troponin I High Sens 6 (<=51) pg/mL C-Reactive Protein (0.0-0.9) mg/dL Total Protein (6.4-8.2) g/dL Albumin (3.4-5.0) g/dL Globulin Albumin/Globulin Ratio SARS-CoV-2 RNA ([facility]YA) (NEGATIVE) 10/03/20 10/03/20 10/03/20 Range/Units 01:37 03:22 05:45 WBC 9.2 (5.0-10.0) 10^3/uL RBC 4.28 (4.2-5.4) 10^6/uL Hgb 11.8 L D (12.0-16.0) g/dL Hct 37.1 (37.0-47.0) % MCV 86.7 (80-100) fL MCH 27.6 (27.0-34.0) pg MCHC 31.8 L (33.0-35.0) g/dL Plt Count 330 (150-450) 10^3/uL Neut % (Auto) 87.3 H (42.2-75.2) % Lymph % (Auto) 9.7 L (20.5-50.1) % [place] % (Auto) 2.9 (2-8) % Eos % (Auto) 0.0 L (1.0-3.0) % Baso % (Auto) 0.1 (0.0-1.0) % Add Manual Diff Yes Neutrophils % (Manual) 72 (42-75) % Band Neutrophils % 13 % Lymphocytes % (Manual) 14 L (20-50) % Monocytes % (Manual) 1 L (2-8) % D-Dimer, Quantitative (0-400) ng/mL Sodium (136-145) mmol/L Potassium (3.5-5.1) mmol/L Chloride (98-107) mmol/L Carbon Dioxide (21-32) mmol/L Anion Gap (7-13) mEq/L BUN (7-18) mg/dL Creatinine (0.55-1.02) mg/dL Est Cr Clr Drug Dosing Estimated GFR (MDRD) BUN/Creatinine Ratio (No establ ref range) Glucose (70-99) mg/dL POC Glucose 479 H* 321 H (70-99) mg/dL Lactic Acid (0.4-2.0) mmol/L Calcium (8.5-10.1) mg/dL Phosphorus (2.6-4.7) mg/dL Magnesium (1.8-2.4) mg/dL Total Bilirubin (0.2-1.0) mg/dL AST (15-37) U/L ALT (14-59) U/L Alkaline Phosphatase (46-116) U/L Troponin I High Sens (<=51) pg/mL C-Reactive Protein (0.0-0.9) mg/dL Total Protein (6.4-8.2) g/dL Albumin (3.4-5.0) g/dL Globulin Albumin/Globulin Ratio SARS-CoV-2 RNA ([facility]YA) (NEGATIVE) 10/03/20 Range/Units 05:45 WBC (5.0-10.0) 10^3/uL RBC (4.2-5.4) 10^6/uL Hgb (12.0-16.0) g/dL Hct (37.0-47.0) % MCV (80-100) fL MCH (27.0-34.0) pg MCHC (33.0-35.0) g/dL Plt Count (150-450) 10^3/uL Neut % (Auto) (42.2-75.2) % Lymph % (Auto) (20.5-50.1) % [place] % (Auto) (2-8) % Eos % (Auto) (1.0-3.0) % Baso % (Auto) (0.0-1.0) % Add Manual Diff Neutrophils % (Manual) (42-75) % Band Neutrophils % % Lymphocytes % (Manual) (20-50) % Monocytes % (Manual) (2-8) % D-Dimer, Quantitative (0-400) ng/mL Sodium 140 (136-145) mmol/L Potassium 4.0 (3.5-5.1) mmol/L Chloride 103 (98-107) mmol/L Carbon Dioxide 21 (21-32) mmol/L Anion Gap 20.0 H (7-13) mEq/L BUN 29 H (7-18) mg/dL Creatinine 2.59 H (0.55-1.02) mg/dL Est Cr Clr Drug Dosing 27.38 Estimated GFR (MDRD) 20 BUN/Creatinine Ratio (No establ ref range) Glucose 323 H (70-99) mg/dL POC Glucose (70-99) mg/dL Lactic Acid (0.4-2.0) mmol/L Calcium 9.0 (8.5-10.1) mg/dL Phosphorus 2.4 L (2.6-4.7) mg/dL Magnesium 1.7 L (1.8-2.4) mg/dL Total Bilirubin (0.2-1.0) mg/dL AST (15-37) U/L ALT (14-59) U/L Alkaline Phosphatase (46-116) U/L Troponin I High Sens (<=51) pg/mL C-Reactive Protein (0.0-0.9) mg/dL Total Protein (6.4-8.2) g/dL Albumin (3.4-5.0) g/dL Globulin Albumin/Globulin Ratio SARS-CoV-2 RNA ([facility]YA) (NEGATIVE) Result Diagrams: 10/03/20 05:45 10/03/20 05:45 Qasim Results Last 24 hrs: Microbiology 10/02/20 16:41 Anaerobic Blood Culture - Final Blood - Arm, Right Sepsis Event Note - Evaluation Sepsis Screening Result: No Definite Risk - Focused Exam Vital Signs: Vital Signs Temp Pulse Resp BP BP Pulse Ox Pulse Ox 10/03/20 04:00 98.4 F 83 20 105/57 L 95 10/03/20 03:03 85 94 L 10/03/20 01:11 96.9 F 84 20 117/67 95 10/02/20 21:28 95.7 F L 91 18 120/63 98 98 - Problem List Review Problem List Initiated/Reviewed/Updated: Yes - My Orders Last 24 Hours: My Active Orders 10/02/20 Dinner Consistent Carbohydrate Diet [DIET] 10/02/20 21:28 Blood Glucose Check, Bedside [RC] WITHMEALSANDBED Cardiac Monitoring [RC] ,20 Oxygen Therapy [RC] PRN Up ad Janeth [RC] Vital Signs [RC] 00,04,08,12,16,20 Acetaminophen [TylenoL] 650 mg PO Q4H PRN Ondansetron [Zofran] 4 mg IVPUSH Q4H PRN Sodium Chloride 0.9% [Saline Flush] 10 ml FLUSH ASDIRECTED PRN Peripheral IV Insertion Adult [OM.PC] Routine Resuscitation Status Routine 10/02/20 21:29 Peripheral IV Care [RC] 10/02/20 21:30 Pulse Oximetry [RC] PRN Sodium Chloride 0.9% [Normal Saline] 1,000 ml IV ASDIRECTED 10/02/20 21:31 RT Aerosol Therapy [RC] ASDIRECTED 10/02/20 21:33 Dextrose 50% in Water 50 ml IVPUSH Q15M PRN Glucagon,Human Recombinant [GlucaGen] 1 mg IM Q15M PRN 10/02/20 21:35 CPAP Adult [RT BiPAP/CPAP] [RC] ASDIRECTED 10/02/20 22:00 Azithromycin [Zithromax] 500 mg Sodium Chloride 0.9% [Normal Saline (AdvBag)] 250 ml IV Q24H 10/02/20 22:12 oxyCODONE 5 mg PO Q6H PRN 10/02/20 22:15 Insulin Glarg,Human.Rec.Analog [LantUS] 37 unit SUBCUT BID Patient's Own Medication [Ptom] DOSE each IVPUSH .WEEKLY 10/02/20 23:00 Albuterol/Ipratropium [DuoNeb 3.0-0.5 MG/3 ML] 3 ml NEB Q4HRRT 10/02/20 23:58 PTH, INTACT [REF] Routine 10/03/20 00:00 methylPREDNISolone Sod Succ [Solu-MEDROL] 60 mg IVPUSH Q8H 10/03/20 06:00 EKG Documentation Completion [RC] ROUTINE Pantoprazole [ProTONIX] 40 mg PO ACBREAKFAST 10/03/20 07:23 Magnesium Sulfate/Water [Magnesium Sulfate in Water 2 GM/50 ML] 2 gm Premix Bag 1 bag IV ONETIME 10/03/20 07:24 FERRITIN [CHEM] Routine IRON/TIBC [CHEM] Routine OCCULT BLOOD DIAGNOSTIC [OP] Routine 10/03/20 08:00 Insulin Lispro [HumaLOG] See Protocol SUBCUT WITHMEALSANDBED 10/03/20 09:00 DULoxetine [Cymbalta] 60 mg PO DAILY Diclofenac Sodium [Voltaren 1% Gel] 2 g TOP BID Heparin Sodium 5,000 units SUBCUT Q12HR Mirabegron [Myrbetriq] 25 mg PO DAILY Pilocarpine HCl [Salagen] 5 mg PO TID Pregabalin [Lyrica] 150 mg PO TID Rosuvastatin [Crestor] 20 mg PO DAILY azaTHIOprine [Imuran] 50 mg PO DAILY buPROPion [Wellbutrin XL] 150 mg PO DAILY cycloSPORINE [Restasis] 1 drop EYEBOTH BID 10/03/20 17:00 cefTRIAXone [Rocephin] 1 gm Sodium Chloride 0.9% [Normal Saline] 50 ml IV Q24H 10/03/20 21:00 Amitriptyline [Elavil] 25 mg PO BEDTIME DULoxetine [Cymbalta] 30 mg PO BEDTIME rOPINIRole [Requip] 0.25 mg PO BEDTIME 10/04/20 05:00 BASIC METABOLIC PANEL,BMP [CHEM] Routine HGB [HEMOGLOBIN] [HEME] Routine MAGNESIUM [CHEM] Routine PHOSPHORUS [CHEM] Routine - Plan Plan:: Surgical History: Right hand surgery, left hand surgery, right first toe amputation, bilateral cataract surgery, right shoulder surgery, previous documentation of gastric surgery which the patient denies Family History: Stroke, diabetes, coronary artery disease Social History: Tobacco: Former smoker Alcohol: Denies Caffeine: Coffee, cola, tea Drugs: Never Allergies: Rituximab. Patient has documented allergy to muscle relaxers which he denies Code Status: DNR, DNI Assessment / Plan: Dyspnea secondary to COPD exacerbation and pneumonia Pneumonia. Azithromycin 500 mg IV daily plus Rocephin 1 g IV daily plus DuoNeb every 4 hours COPD, non-O2 dependent. Solu-Medrol 60 mg IV q. hours plus DuoNeb every 4 hours Hypomagnesemia. Will monitor magnesium levels intermittently and supplement as necessary Hypophosphatemia. Will monitor phosphorus levels intermittently and supplement as necessary History of nephrolithiasis Neuropathy. Amitriptyline 25 mg p.o. nightly plus Lyrica 150 mg p.o. 3 times daily Overactive bladder. Myrbetriq 25 mg p.o. 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 Will monitor creatinine level intermittently. Azathioprine 50 mg p.o. daily plus IV normal saline at 100 mL/h Hypokalemia. Will monitor potassium levels intermittently and supplement as necessary History medical noncompliance. Patient be counseled regard medical compliance Hepatic steatosis Diverticulosis Muscle spasm Restless leg syndrome. Requip 0.25 mg p.o. nightly Depression. Amitriptyline 25 mg p.o. nightly plus Wellbutrin XL 150 mg p.o. daily plus Cymbalta 60 mg p.o. daily and 30 mg p.o. nightly Diabetes. Will check fingerstick glucose before every meal and at bedtime and provide insulin/scale plus Lantus 37 units of cutaneously twice daily GERD/history of gastritis. Protonix 40 mg p.o. daily Hyperlipidemia. Crestor 20 mg p.o. daily Hypertension Obesity. Patient be counseled regarding lifestyle modification Degenerative disc disease Obstructive sleep apnea. CPAP/BiPAP: Okay to use home device and/or pressure when sleeping if the patient uses CPAP/BiPAP at home Chronic pain. Voltaren 1% gel: 2 g apply to affected area twice daily Fibromyalgia. Cymbalta 60 mg p.o. daily and 30 mg p.o. nightly plus Lyrica 150 mg p.o. 3 times daily Xerostomia. Pilocarpine 5 mg p.o. 3 times daily Anemia. Will monitor hemoglobin level intermittently. Check serum ferritin, iron panel, fecal occult blood Anxiety History vitamin D deficiency History of iron deficiency Rheumatoid arthritis Lupus P ANCA vasculitis. Azathioprine 50 mg p.o. daily History of CVA and TIA. Crestor 20 mg p.o. daily Degenerative joint disease Chronic dry eye. Restasis 1 drop in both eyes twice daily DVT prophylaxis. Heparin 5000 units subcutaneously every 12 hours Disposition: Anticipate discharge in 24 to 48 hours once the patient's creatinine returns to her baseline of 1.5-1.9 or once we see no further improvement in her creatinine END OF DOCTOR EMAM[facility] HISTORY AND PHYSICAL / CONSULTATION NOTE
[2020-10-03] MEDS: Heparin Sodium 5,000 Units/ML Vial SUBCUT SCH ×2 (08:30→20:50)
[2020-10-03] MEDS: Insulin Lispro 100 Units/ML 3 ML Vial SUBCUT SCH ×4 (08:32→22:18)
[2020-10-03] MEDS: Insulin Glarg,Human.Rec.Analog 100 Unit/ML SUBCUT SCH ×2 (08:33→20:49)
[2020-10-03] MEDS: buPROPion 150 MG Tab.ER PO SCH (08:36)
[2020-10-03] MEDS: Rosuvastatin 10 MG Tab PO SCH (08:36)
[2020-10-03] MEDS: DULoxetine 30 MG Cap PO SCH (08:36)
[2020-10-03] MEDS ORDERED: PILOCARPINE HCL 5 MG PO SCH (09:00)
[2020-10-03] MEDS ORDERED: Non-Formulary Medication 1 Each (Mirabegron [Myrbetriq] 25 MG Tab.Er) PO SCH (09:00)
[2020-10-03] MEDS ORDERED: Non-Formulary Medication 1 Each (Diclofenac Sodium [Voltaren 1% Gel] 100 GM Tube) TOP SCH (09:00)
[2020-10-03] MEDS ORDERED: Non-Formulary Medication 1 Each (Cyclosporine [Restasis] 1 EACH Each) EYEBOTH SCH (09:00)
[2020-10-03] MEDS: Sodium Chloride 0.9% 1,000 ML IV SCH ×2 (10:45→21:38)
[2020-10-03] MEDS: oxyCODONE 5 MG Tab PO PRN ×2 (12:40→19:56)
[2020-10-03] MEDS ORDERED: cefTRIAXone 1 GM in Sodium Chloride 0.9% 50 ML IV SCH (17:00)
[2020-10-03] MEDS: Ferrous Sulfate 325 MG Tab PO SCH (17:12)
[2020-10-03] MEDS ORDERED: Amitriptyline 25 MG Tab PO SCH (21:00)
[2020-10-03] MEDS ORDERED: rOPINIRole 0.25 MG Tab PO SCH (21:00)
[2020-10-03] MEDS ORDERED: DULoxetine 30 MG Cap PO SCH (21:00)
[2020-10-03] MEDS: Azithromycin 500 MG in Sodium Chloride 0.9% 250 ML IV SCH (22:29)
[2020-10-04] MEDS: methylPREDNISolone Sodium Succinate 40 MG/1 ML SDV IVPUSH SCH ×3 (00:12→16:05)
[2020-10-04] MEDS: Sodium Chloride 0.9% 10 ML Syringe FLUSH PRN ×2 (00:12→00:16)
[2020-10-04] MEDS: Albuterol/Ipratropium 3.0-0.5 MG/3 ML Neb Soln NEB SCH ×4 (03:14→14:18)
[2020-10-04] MEDS: oxyCODONE 5 MG Tab PO PRN ×3 (03:35→15:43)
[2020-10-04] MEDS: Pantoprazole 40 MG Tab.CR PO SCH (05:19)
[2020-10-04 06:07] LABS: ANION GAP 18.6 mEq/L (7-13)
--- NOTE | 2020-10-04 07:40 | PCM.PN ---
- General Info Date of Service: 10/04/20 Subjective Update: The patient endorses no complaints at this time. She denies fever, rigors, nausea, vomiting, cough, wheeze, abdominal pain, chest pain, dyspnea, or any other constitutional complaint. I explained to the patient her current medical condition and plan of care and I have answered all of her questions - Review of Systems General: Reports: No Symptoms HEENT: Reports: No Symptoms Pulmonary: Reports: No Symptoms Cardiovascular: Reports: No Symptoms Gastrointestinal: Reports: No Symptoms Genitourinary: Reports: No Symptoms Musculoskeletal: Reports: No Symptoms Skin: Reports: No Symptoms Neurological: Reports: No Symptoms Psychiatric: Reports: No Symptoms - Patient Data Vitals - Most Recent: Last Vital Signs Temp 97.9 F 10/04/20 03:33 Pulse 96 10/04/20 03:33 Resp 20 10/04/20 03:33 BP 133/71 10/04/20 03:33 Pulse Ox 94 L 10/04/20 03:33 Weight - Most Recent: 245 lb 3.2 oz I&O - Last 24 Hours: Intake & Output 10/03/20 10/04/20 10/04/20 22:59 06:59 14:59 Intake Total 3170 550 Balance 3170 550 Lab Results Last 24 Hours: Laboratory Results - last 24 hr 10/03/20 10/03/20 10/03/20 Range/Units 05:45 07:56 11:58 Hgb (12.0-16.0) g/dL Sodium (136-145) mmol/L Potassium (3.5-5.1) mmol/L Chloride (98-107) mmol/L Carbon Dioxide (21-32) mmol/L Anion Gap (7-13) mEq/L BUN (7-18) mg/dL Creatinine (0.55-1.02) mg/dL Est Cr Clr Drug Dosing mL/min Estimated GFR (MDRD) Glucose (70-99) mg/dL POC Glucose 240 H 417 H* (70-99) mg/dL Calcium (8.5-10.1) mg/dL Phosphorus (2.6-4.7) mg/dL Magnesium (1.8-2.4) mg/dL Iron 24 L (50-175) ug/dL TIBC 267 (250-450) ug/dL % Saturation 9.0 L (20.0-50.0) % Ferritin 162 (8-252) mg/mL 10/03/20 10/03/20 10/03/20 Range/Units 16:46 18:23 20:24 Hgb (12.0-16.0) g/dL Sodium (136-145) mmol/L Potassium (3.5-5.1) mmol/L Chloride (98-107) mmol/L Carbon Dioxide (21-32) mmol/L Anion Gap (7-13) mEq/L BUN (7-18) mg/dL Creatinine (0.55-1.02) mg/dL Est Cr Clr Drug Dosing mL/min Estimated GFR (MDRD) Glucose (70-99) mg/dL POC Glucose 432 H* 436 H* 459 H* (70-99) mg/dL Calcium (8.5-10.1) mg/dL Phosphorus (2.6-4.7) mg/dL Magnesium (1.8-2.4) mg/dL Iron (50-175) ug/dL TIBC (250-450) ug/dL % Saturation (20.0-50.0) % Ferritin (8-252) mg/mL 10/03/20 10/03/20 10/04/20 Range/Units 21:57 23:51 01:07 Hgb (12.0-16.0) g/dL Sodium (136-145) mmol/L Potassium (3.5-5.1) mmol/L Chloride (98-107) mmol/L Carbon Dioxide (21-32) mmol/L Anion Gap (7-13) mEq/L BUN (7-18) mg/dL Creatinine (0.55-1.02) mg/dL Est Cr Clr Drug Dosing mL/min Estimated GFR (MDRD) Glucose (70-99) mg/dL POC Glucose 418 H* 423 H* 346 H (70-99) mg/dL Calcium (8.5-10.1) mg/dL Phosphorus (2.6-4.7) mg/dL Magnesium (1.8-2.4) mg/dL Iron (50-175) ug/dL TIBC (250-450) ug/dL % Saturation (20.0-50.0) % Ferritin (8-252) mg/mL 10/04/20 10/04/20 Range/Units 05:35 05:35 Hgb 10.4 L (12.0-16.0) g/dL Sodium 145 (136-145) mmol/L Potassium 4.6 (3.5-5.1) mmol/L Chloride 109 H (98-107) mmol/L Carbon Dioxide 22 (21-32) mmol/L Anion Gap 18.6 H (7-13) mEq/L BUN 33 H (7-18) mg/dL Creatinine 2.02 H (0.55-1.02) mg/dL Est Cr Clr Drug Dosing 35.10 mL/min Estimated GFR (MDRD) 27 Glucose 160 H (70-99) mg/dL POC Glucose (70-99) mg/dL Calcium 8.9 (8.5-10.1) mg/dL Phosphorus 2.4 L (2.6-4.7) mg/dL Magnesium 2.3 (1.8-2.4) mg/dL Iron (50-175) ug/dL TIBC (250-450) ug/dL % Saturation (20.0-50.0) % Ferritin (8-252) mg/mL Qasim Results Last 24 Hours: Microbiology 10/02/20 16:46 Aerobic Blood Culture - Preliminary Blood - Arm, Left NO GROWTH AFTER 1 DAY Anaerobic Blood Culture - Preliminary NO GROWTH AFTER 1 DAY 10/02/20 16:41 Aerobic Blood Culture - Preliminary Blood - Arm, Right NO GROWTH AFTER 1 DAY Anaerobic Blood Culture - Final Med Orders - Current: Current Medications Acetaminophen (Acetaminophen 325 Mg Tab) 650 mg PO Q4H PRN PRN Reason: Pain (Mild 1-3)/fever Albuterol/Ipratropium (Albuterol/Ipratropium 3.0-0.5 Mg/3 Ml Neb Soln) 3 ml NEB Q4HRRT [facility] Last Admin: 10/04/20 07:38 Dose: 3 ml Documented by: Amitriptyline HCl (Amitriptyline 25 Mg Tab) 25 mg PO BEDTIME [facility] Last Admin: 10/03/20 20:01 Dose: 25 mg Documented by: Ascorbic Acid (Ascorbic Acid 500 Mg Tab) 250 mg PO DAILY [facility] Azathioprine (Azathioprine 50 Mg Tab) 50 mg PO DAILY [facility] Last Admin: 10/03/20 08:36 Dose: 50 mg Documented by: Bupropion HCl (Bupropion 150 Mg Tab.Er) 150 mg PO DAILY [facility] Last Admin: 10/03/20 08:36 Dose: 150 mg Documented by: Dextrose/Water (50% Dextrose In Water 50 Ml Syringe) 50 ml IVPUSH Q15M PRN PRN Reason: Hypoglycemia Duloxetine HCl (Duloxetine 30 Mg Cap) 30 mg PO BEDTIME [facility] Last Admin: 10/03/20 19:59 Dose: 30 mg Documented by: Duloxetine HCl (Duloxetine 30 Mg Cap) 60 mg PO DAILY [facility] Last Admin: 10/03/20 08:36 Dose: 60 mg Documented by: Ferrous Sulfate (Ferrous Sulfate 325 Mg Tab) 325 mg PO BIDMEALS [facility] Last Admin: 10/03/20 17:12 Dose: 325 mg Documented by: Glucagon (Glucagon,Human Recombinant 1 Mg Vial) 1 mg IM Q15M PRN PRN Reason: Hypoglycemia Heparin Sodium (Porcine) (Heparin Sodium 5,000 Units/Ml Vial) 5,000 units SUBCUT Q12HR [facility] Last Admin: 10/03/20 20:50 Dose: 5,000 units Documented by: Sodium Chloride (Normal Saline) 1,000 mls @ 100 mls/hr IV ASDIRECTED [facility] Last Admin: 10/03/20 21:38 Dose: 100 mls/hr Documented by: Azithromycin 500 mg/ Sodium (Chloride) 250 mls @ 250 mls/hr IV Q24H [facility] Last Infusion: 10/03/20 23:58 Dose: Infused Documented by: Ceftriaxone Sodium 1 gm/ (Sodium Chloride) 50 mls @ 100 mls/hr IV Q24H [facility] Last Infusion: 10/03/20 17:43 Dose: Infused Documented by: Insulin Glargine (Insulin Glarg,Human.Rec.Analog 100 Unit/Ml) 37 unit SUBCUT BID [facility] Last Admin: 10/03/20 20:49 Dose: 37 units Documented by: Insulin Human Lispro (Insulin Lispro 100 Units/Ml 3 Ml Vial) 0 unit SUBCUT WITHMEALSANDBED [facility]; Protocol Last Admin: 10/03/20 22:18 Dose: Not Given Documented by: Methylprednisolone Sodium Succinate (Methylprednisolone Sodium Succinate 40 Mg/1 Ml Sdv) 20 mg IVPUSH Q8H [facility] Last Admin: 10/04/20 00:12 Dose: 20 mg Documented by: Non-Formulary Medication (Cyclosporine [Restasis]) 1 drop EYEBOTH BID [facility] Non-Formulary Medication (Diclofenac Sodium [Voltaren 1% Gel]) 2 g TOP BID [facility] Non-Formulary Medication (Mirabegron [Myrbetriq]) 25 mg PO DAILY [facility] Non-Formulary Medication (Pilocarpine Hcl [Salagen]) 5 mg PO TID [facility] Ondansetron HCl (Ondansetron 4 Mg/2 Ml Sdv) 4 mg IVPUSH Q4H PRN PRN Reason: Nausea/Vomiting Oxycodone HCl (Oxycodone 5 Mg Tab) 5 mg PO Q6H PRN PRN Reason: Pain Last Admin: 10/04/20 03:35 Dose: 5 mg Documented by: Pantoprazole Sodium (Pantoprazole 40 Mg Tab.Cr) 40 mg PO ACBREAKFAST [facility] Last Admin: 10/04/20 05:19 Dose: 40 mg Documented by: Pregabalin (Pregabalin 150 Mg Cap) 150 mg PO TID [facility] Last Admin: 10/03/20 19:59 Dose: 150 mg Documented by: Ropinirole HCl (Ropinirole 0.25 Mg Tab) 0.25 mg PO BEDTIME [facility] Last Admin: 10/03/20 20:01 Dose: 0.25 mg Documented by: Rosuvastatin Calcium (Rosuvastatin 10 Mg Tab) 20 mg PO DAILY [facility] Last Admin: 10/03/20 08:36 Dose: 20 mg Documented by: Sodium Chloride (Sodium Chloride 0.9% 10 Ml Syringe) 10 ml FLUSH ASDIRECTED PRN PRN Reason: Keep Vein Open Last Admin: 10/04/20 00:16 Dose: 10 ml Documented by: Discontinued Medications Ceftriaxone Sodium 1 gm/ (Sodium Chloride) 50 mls @ 100 mls/hr IV ONETIME ONE Stop: 10/02/20 16:53 Last Admin: 10/02/20 16:41 Dose: 100 mls/hr Documented by: Magnesium Sulfate 2 gm/ Premix 50 mls @ 25 mls/hr IV ONETIME ONE Stop: 10/03/20 09:22 Last Infusion: 10/03/20 10:45 Dose: Infused Documented by: Insulin Human Lispro (Insulin Lispro 100 Units/Ml 3 Ml Vial) 30 unit SUBCUT ONETIME ONE Stop: 10/02/20 22:20 Last Admin: 10/02/20 22:47 Dose: 30 units Documented by: Insulin Human Lispro (Insulin Lispro 100 Units/Ml 3 Ml Vial) 45 unit SUBCUT ONETIME ONE Stop: 10/02/20 23:51 Last Admin: 10/03/20 00:25 Dose: 45 units Documented by: Insulin Human Lispro (Insulin Lispro 100 Units/Ml 3 Ml Vial) 55 unit SUBCUT ONETIME ONE Stop: 10/03/20 01:50 Last Admin: 10/03/20 02:18 Dose: 55 units Documented by: Insulin Human Lispro (Insulin Lispro 100 Units/Ml 3 Ml Vial) 26 unit SUBCUT ONETIME ONE Stop: 10/03/20 12:06 Last Admin: 10/03/20 12:36 Dose: 26 units Documented by: Insulin Human Lispro (Insulin Lispro 100 Units/Ml 3 Ml Vial) 30 unit SUBCUT ONETIME ONE Stop: 10/03/20 17:02 Last Admin: 10/03/20 17:15 Dose: 30 units Documented by: Insulin Human Lispro (Insulin Lispro 100 Units/Ml 3 Ml Vial) 42 unit SUBCUT ONETIME ONE Stop: 10/03/20 18:28 Last Admin: 10/03/20 19:26 Dose: 42 units Documented by: Insulin Human Lispro (Insulin Lispro 100 Units/Ml 3 Ml Vial) 55 unit SUBCUT ONETIME ONE Stop: 10/03/20 20:31 Last Admin: 10/03/20 20:49 Dose: 55 unit Documented by: Insulin Human Lispro (Insulin Lispro 100 Units/Ml 3 Ml Vial) 65 unit SUBCUT O NETIME ONE Stop: 10/03/20 22:02 Last Admin: 10/03/20 22:19 Dose: 65 unit Documented by: Insulin Human Lispro (Insulin Lispro 100 Units/Ml 3 Ml Vial) 85 unit SUBCUT ONETIME ONE Stop: 10/03/20 23:56 Last Admin: 10/04/20 00:05 Dose: 85 units Documented by: Ketorolac Tromethamine (Ketorolac 30 Mg/Ml Sdv) 30 mg IVPUSH ONETIME ONE Stop: 10/02/20 17:54 Last Admin: 10/02/20 17:58 Dose: 30 mg Documented by: Methylprednisolone Sodium Succinate (Methylprednisolone Sodium Succinate 125 Mg/2 Ml Sdv) 125 mg IVPUSH ONETIME ONE Stop: 10/02/20 16:26 Last Admin: 10/02/20 16:40 Dose: 125 mg Documented by: Methylprednisolone Sodium Succinate (Methylprednisolone Sodium Succinate 40 Mg/1 Ml Sdv) 60 mg IVPUSH Q8H [facility] Last Admin: 10/03/20 08:30 Dose: 60 mg Documented by: Patient Own Medication (Patient's Own Medication 1 Each) each IVPUSH .WEEKLY [facility] Potassium Chloride (Potassium Chloride 10 Meq Tab.Er) 40 meq PO ONETIME ONE Stop: 10/02/20 21:32 Last Admin: 10/02/20 22:48 Dose: 40 meq Documented by: - Exam General: Alert, Oriented HEENT: Pupils Equal, Pupils Reactive, EOMI, Mucous Membr. Moist/[place]ck: Supple Lungs: Clear to Auscultation, Normal Respiratory Effort Cardiovascular: Regular Rate, Regular Rhythm GI/Abdominal Exam: Normal Bowel Sounds, Soft, Non-Tender, No Organomegaly, No Distention, No Abnormal Bruit, No Mass, Pelvis Stable Back Exam: Normal Inspection, Full Range of Motion Extremities: Normal Inspection, Normal Range of Motion, Non-Tender, No Pedal Edema, Normal Capillary Refill Peripheral Pulses: 2+: Carotid (L), Carotid (R), Brachial (L), Brachial (R), Radial (L), Radial (R), Femoral (L), Femoral (R), Popliteal (L), Popliteal (R), Posterior Tibial (L), Posterior Tibial (R), Dorsalis Pedis (L), Dorsalis Pedis (R) Skin: Warm, Dry, Intact Wound/Incisions: Healing Well Neurological: No New Focal Deficit Psy/Mental Status: Alert, Normal Affect, Normal Mood - Patient Data Lab Results Last 24 hrs: Laboratory Results - last 24 hr 10/03/20 10/03/20 10/03/20 Range/Units 05:45 07:56 11:58 Hgb (12.0-16.0) g/dL Sodium (136-145) mmol/L Potassium (3.5-5.1) mmol/L Chloride (98-107) mmol/L Carbon Dioxide (21-32) mmol/L Anion Gap (7-13) mEq/L BUN (7-18) mg/dL Creatinine (0.55-1.02) mg/dL Est Cr Clr Drug Dosing mL/min Estimated GFR (MDRD) Glucose (70-99) mg/dL POC Glucose 240 H 417 H* (70-99) mg/dL Calcium (8.5-10.1) mg/dL Phosphorus (2.6-4.7) mg/dL Magnesium (1.8-2.4) mg/dL Iron 24 L (50-175) ug/dL TIBC 267 (250-450) ug/dL % Saturation 9.0 L (20.0-50.0) % Ferritin 162 (8-252) mg/mL 10/03/20 10/03/20 10/03/20 Range/Units 16:46 18:23 20:24 Hgb (12.0-16.0) g/dL Sodium (136-145) mmol/L Potassium (3.5-5.1) mmol/L Chloride (98-107) mmol/L Carbon Dioxide (21-32) mmol/L Anion Gap (7-13) mEq/L BUN (7-18) mg/dL Creatinine (0.55-1.02) mg/dL Est Cr Clr Drug Dosing mL/min Estimated GFR (MDRD) Glucose (70-99) mg/dL POC Glucose 432 H* 436 H* 459 H* (70-99) mg/dL Calcium (8.5-10.1) mg/dL Phosphorus (2.6-4.7) mg/dL Magnesium (1.8-2.4) mg/dL Iron (50-175) ug/dL TIBC (250-450) ug/dL % Saturation (20.0-50.0) % Ferritin (8-252) mg/mL 10/03/20 10/03/20 10/04/20 Range/Units 21:57 23:51 01:07 Hgb (12.0-16.0) g/dL Sodium (136-145) mmol/L Potassium (3.5-5.1) mmol/L Chloride (98-107) mmol/L Carbon Dioxide (21-32) mmol/L Anion Gap (7-13) mEq/L BUN (7-18) mg/dL Creatinine (0.55-1.02) mg/dL Est Cr Clr Drug Dosing mL/min Estimated GFR (MDRD) Glucose (70-99) mg/dL POC Glucose 418 H* 423 H* 346 H (70-99) mg/dL Calcium (8.5-10.1) mg/dL Phosphorus (2.6-4.7) mg/dL Magnesium (1.8-2.4) mg/dL Iron (50-175) ug/dL TIBC (250-450) ug/dL % Saturation (20.0-50.0) % Ferritin (8-252) mg/mL 10/04/20 10/04/20 Range/Units 05:35 05:35 Hgb 10.4 L (12.0-16.0) g/dL Sodium 145 (136-145) mmol/L Potassium 4.6 (3.5-5.1) mmol/L Chloride 109 H (98-107) mmol/L Carbon Dioxide 22 (21-32) mmol/L Anion Gap 18.6 H (7-13) mEq/L BUN 33 H (7-18) mg/dL Creatinine 2.02 H (0.55-1.02) mg/dL Est Cr Clr Drug Dosing 35.10 mL/min Estimated GFR (MDRD) 27 Glucose 160 H (70-99) mg/dL POC Glucose (70-99) mg/dL Calcium 8.9 (8.5-10.1) mg/dL Phosphorus 2.4 L (2.6-4.7) mg/dL Magnesium 2.3 (1.8-2.4) mg/dL Iron (50-175) ug/dL TIBC (250-450) ug/dL % Saturation (20.0-50.0) % Ferritin (8-252) mg/mL Result Diagrams: 10/04/20 05:35 10/04/20 05:35 Qasim Results Last 24 hrs: Microbiology 10/02/20 16:46 Aerobic Blood Culture - Preliminary Blood - Arm, Left NO GROWTH AFTER 1 DAY Anaerobic Blood Culture - Preliminary NO GROWTH AFTER 1 DAY 10/02/20 16:41 Aerobic Blood Culture - Preliminary Blood - Arm, Right NO GROWTH AFTER 1 DAY Anaerobic Blood Culture - Final Sepsis Event Note - Evaluation Sepsis Screening Result: No Definite Risk - Focused Exam Vital Signs: Vital Signs Temp Pulse Resp BP Pulse Ox Pulse Ox 10/04/20 03:33 97.9 F 96 20 133/71 94 L 10/04/20 03:14 96 97 10/04/20 01:10 97.5 F 100 20 135/70 95 10/03/20 22:31 99 95 10/03/20 21:30 96 10/03/20 21:28 96 10/03/20 19:55 98.1 F 105 H 20 128/75 96 - Problem List Review Problem List Initiated/Reviewed/Updated: Yes - My Orders Last 24 Hours: My Active Orders 10/03/20 07:24 OCCULT BLOOD DIAGNOSTIC [OP] Routine 10/03/20 08:00 Insulin Lispro [HumaLOG] See Protocol SUBCUT WITHMEALSANDBED 10/03/20 09:00 DULoxetine [Cymbalta] 60 mg PO DAILY Diclofenac Sodium [Voltaren 1% Gel] 2 g TOP BID Heparin Sodium 5,000 units SUBCUT Q12HR Mirabegron [Myrbetriq] 25 mg PO DAILY Pilocarpine HCl [Salagen] 5 mg PO TID Pregabalin [Lyrica] 150 mg PO TID Rosuvastatin [Crestor] 20 mg PO DAILY azaTHIOprine [Imuran] 50 mg PO DAILY buPROPion [Wellbutrin XL] 150 mg PO DAILY cycloSPORINE [Restasis] 1 drop EYEBOTH BID 10/03/20 16:00 methylPREDNISolone Sod Succ [Solu-MEDROL] 20 mg IVPUSH Q8H 10/03/20 17:00 cefTRIAXone [Rocephin] 1 gm Sodium Chloride 0.9% [Normal Saline] 50 ml IV Q24H 10/03/20 18:00 Ferrous Sulfate 325 mg PO BIDMEALS 10/03/20 21:00 Amitriptyline [Elavil] 25 mg PO BEDTIME DULoxetine [Cymbalta] 30 mg PO BEDTIME rOPINIRole [Requip] 0.25 mg PO BEDTIME 10/04/20 09:00 Ascorbic Acid [Vitamin C] 250 mg PO DAILY 10/04/20 15:00 CREATININE W/GFR [CHEM] Routine 10/05/20 05:00 CREATININE W/GFR [CHEM] Routine HGB [HEMOGLOBIN] [HEME] Routine - Plan Plan:: Surgical History: Right hand surgery, left hand surgery, right first toe amputation, bilateral cataract surgery, right shoulder surgery, previous documentation of gastric surgery which the patient denies Family History: Stroke, diabetes, coronary artery disease Social History: Tobacco: Former smoker Alcohol: Denies Caffeine: Coffee, cola, tea Drugs: Never Allergies: Rituximab. Patient has documented allergy to muscle relaxers which he denies Code Status: DNR, DNI Assessment / Plan: Dyspnea secondary to COPD exacerbation and pneumonia Pneumonia. Azithromycin 500 mg IV daily plus Rocephin 1 g IV daily plus DuoNeb every 4 hours COPD, non-O2 dependent. Solu-Medrol 20 mg IV q. hours plus DuoNeb every 4 hours Hypomagnesemia. Will monitor magnesium levels intermittently and supplement as necessary Hypophosphatemia. Will monitor phosphorus levels intermittently and supplement as necessary History of nephrolithiasis Neuropathy. Amitriptyline 25 mg p.o. nightly plus Lyrica 150 mg p.o. 3 times daily Overactive bladder. Myrbetriq 25 mg p.o. 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 Will monitor creatinine level intermittently. Azathioprine 50 mg p.o. daily plus IV normal saline at 100 mL/h Hypokalemia. Will monitor potassium levels intermittently and supplement as necessary History medical noncompliance. Patient be counseled regard medical compliance Hepatic steatosis Diverticulosis Muscle spasm Restless leg syndrome. Requip 0.25 mg p.o. nightly Depression. Amitriptyline 25 mg p.o. nightly plus Wellbutrin XL 150 mg p.o. daily plus Cymbalta 60 mg p.o. daily and 30 mg p.o. nightly Diabetes. Will check fingerstick glucose before every meal and at bedtime and provide insulin/scale plus Lantus 37 units of cutaneously twice daily GERD/history of gastritis. Protonix 40 mg p.o. daily Hyperlipidemia. Crestor 20 mg p.o. daily Hypertension Obesity. Patient be counseled regarding lifestyle modification Degenerative disc disease Obstructive sleep apnea. CPAP/BiPAP: Okay to use home device and/or pressure when sleeping if the patient uses CPAP/BiPAP at home Chronic pain. Voltaren 1% gel: 2 g apply to affected area twice daily Fibromyalgia. Cymbalta 60 mg p.o. daily and 30 mg p.o. nightly plus Lyrica 150 mg p.o. 3 times daily Xerostomia. Pilocarpine 5 mg p.o. 3 times daily Iron deficiency anemia. Will monitor hemoglobin level intermittently. Ferrous sulfate 305 mg p.o. twice daily plus vitamin C 250 mg p.o. daily Anxiety History vitamin D deficiency History of iron deficiency Rheumatoid arthritis Lupus P ANCA vasculitis. Azathioprine 50 mg p.o. daily History of CVA and TIA. Crestor 20 mg p.o. daily Degenerative joint disease Chronic dry eye. Restasis 1 drop in both eyes twice daily DVT prophylaxis. Heparin 5000 units subcutaneously every 12 hours Disposition: Anticipate discharge on this day of October 04, 2020 at 1500 after recheck of her serum creatinine END OF DOCTOR [facility] HISTORY AND PHYSICAL / CONSULTATION NOTE
[2020-10-04] MEDS: Ferrous Sulfate 325 MG Tab PO SCH (08:43)
[2020-10-04] MEDS: DULoxetine 30 MG Cap PO SCH (08:43)
[2020-10-04] MEDS: Rosuvastatin 10 MG Tab PO SCH (08:43)
[2020-10-04] MEDS: buPROPion 150 MG Tab.ER PO SCH (08:43)
[2020-10-04] MEDS: Heparin Sodium 5,000 Units/ML Vial SUBCUT SCH (08:45)
[2020-10-04] MEDS: Insulin Lispro 100 Units/ML 3 ML Vial SUBCUT SCH ×2 (08:53→13:05)
[2020-10-04] MEDS: Insulin Glarg,Human.Rec.Analog 100 Unit/ML SUBCUT SCH (08:59)
[2020-10-04] MEDS ORDERED: Ascorbic Acid 500 MG Tab PO SCH (09:00)
[2020-10-04] MEDS: Sodium Chloride 0.9% 1,000 ML IV SCH (09:06)
[2020-10-04 12:11] VITALS: BP 149/73
[2020-10-04 14:19] VITALS: PULSE 78
--- NOTE | 2020-10-04 15:14 | PCM.DCSUM1 ---
Discharge Summary - Hospital Course Free Text/Narrative:: START OF DOCTOR EMAM[facility] DISCHARGE SUMMARY Date of Admission: October 02, 2020 Date of Discharge: 3:10 PM on October 04, 2020 Primary Diagnosis: Dyspnea secondary to COPD exacerbation and pneumonia Secondary Diagnosis: Pneumonia COPD, not O2 dependent Hypomagnesemia, resolved Hypophosphatemia History of nephrolithiasis Neuropathy Overactive bladder Acute on chronic kidney disease/IgA nephropathy/necrotizing presenter glomerulonephritis, baseline creatinine approximately 1.5-1.9 Hypokalemia, resolved History of medical noncompliance Hepatic steatosis Diverticulosis Muscle spasm Restless leg syndrome Depression Diabetes GERD/history of gastritis Hyperlipidemia Hypertension Obesity Degenerative's disease Obstructive sleep apnea Chronic pain Fibromyalgia Xerostomia Iron deficiency anemia Anxiety History vitamin D deficiency Rheumatoid arthritis Lupus 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 Degenerative joint disease Chronic dry eye Consultations: None Condition on Discharge: Fair Disposition: Patient will be advised follow-up with her primary care physician or with a provider 3 to 5 days post discharge for posthospitalization evaluation The patient is advised to follow-up with nephrology 1 to 2 weeks post discharge or as directed for her history of chronic kidney disease with baseline creatinine approximate 1.5-1.9/IgA nephropathy/necrotizing crescentic glomerulonephritis The patient is advised to follow-up with rheumatology as directed for her history of p-ANCA vasculitis Discharge Medications: Zanaflex 1 mg p.o. every 8 hours as needed muscle spasm Prednisone 10 mg p.o.: 4 tabs daily x3 days then 3 tabs daily x3 days then 2 tabs daily x3 days then 1 tab daily indefinitely for which she is on for her history of p-ANCA vasculitis and her history of necrotizing crescentic glomerul onephritis Protonix 40 mg p.o. twice daily Oxycodone 5 mg p.o. every 6 hours as needed pain Vitamin D 1.25 mg p.o. weekly Crestor 20 mg p.o. daily Requip 0.25 mg p.o. nightly Lyrica 150 mg p.o. 3 times daily Pilocarpine 5 mg p.o. 3 times daily Myrbetriq 25 mg p.o. daily Insulin glargine 37 unit subcutaneously twice daily Ferrous sulfate 325 mg p.o. twice daily Cymbalta 60 mg p.o. daily and 30 mg p.o. nightly Voltaren 1% gel: 2 g apply to affected area twice daily Restasis 1 drop in both eyes twice daily Bupropion XL 150 mg p.o. daily Azathioprine 50 mg p.o. daily Vitamin C 250 mg p.o. daily Amitriptyline 25 mg p.o. nightly Doxycycline 100 mg p.o. twice daily. Quantity 8. 0 refills END OF DOCTOR EMAMIS DISCHARGE SUMMARY - Discharge Data Discharge Date: 10/04/20 Discharge Disposition: Home, Self-Care 01 Condition: Fair - Referral to Home Health Primary Care Physician: PCP None - Patient Instructions Diet: Heart Healthy Diet, Low Sodium, Diabetic Diet, Renal Diet Activity: As Tolerated - Discharge Plan Prescriptions/Med Rec: Ferrous Sulfate 325 mg PO BIDMEALS 30 Days #60 tablet predniSONE [Prednisone] 10 mg PO DAILY 1 Days #1 tablet Doxycycline [Vibra-Tabs] 100 mg PO Q12HR 4 Days #8 tab Ascorbic Acid [Vitamin C] 250 mg PO DAILY 30 Days #30 tablet Home Medications: Home Meds Insulin Glargine,Hum.Rec.Anlog [Constance Roe U-100] 37 unit SQ BID 10/31/18 [History] Mirabegron [Myrbetriq] 25 mg PO DAILY 10/31/18 [History] Pregabalin [Lyrica] 150 mg PO TID 10/31/18 [History] DULoxetine [Cymbalta] 30 mg PO BEDTIME 02/06/20 [History] azaTHIOprine [Azathioprine] 50 mg PO DAILY 02/06/20 [History] buPROPion [buPROPion XL] 150 mg PO DAILY 02/06/20 [History] Amitriptyline [Elavil] 25 mg PO BEDTIME 07/27/20 [History] DULoxetine [Cymbalta] 60 mg PO DAILY 07/27/20 [History] Diclofenac Sodium [Voltaren 1% Gel] 2 g TOP BID 07/27/20 [History] Ergocalciferol (Vitamin D2) [Vitamin D2] 1.25 mg PO WEEKLY 07/27/20 [History] Pantoprazole [ProTONIX] 40 mg PO BIDMEALS 07/27/20 [History] Pilocarpine HCl [Salagen] 5 mg PO TID 07/27/20 [History] tiZANidine [Zanaflex] 1 mg PO Q8H PRN 07/27/20 [History] oxyCODONE 5 mg PO Q6H PRN 10/02/20 [History] Ascorbic Acid [Vitamin C] 250 mg PO DAILY 30 Days #30 tablet 10/04/20 [Rx] Doxycycline [Vibra-Tabs] 100 mg PO Q12HR 4 Days #8 tab 10/04/20 [Rx] Ferrous Sulfate 325 mg PO BIDMEALS 30 Days #60 tablet 10/04/20 [Rx] Rosuvastatin [Crestor] 20 mg PO DAILY tablet 10/04/20 [Rx] cycloSPORINE [Restasis] 1 drop EYEBOTH BID 10/04/20 [Rx] predniSONE [Prednisone] 10 mg PO DAILY 1 Days #1 tablet 10/04/20 [Rx] rOPINIRole [Requip] 0.25 mg PO BEDTIME tablet 10/04/20 [Rx] - Discharge Summary/Plan Comment DC Time >30 min.: Yes - Review of Systems General: Reports: No Symptoms HEENT: Reports: No Symptoms Pulmonary: Reports: No Symptoms Cardiovascular: Reports: No Symptoms Gastrointestinal: Reports: No Symptoms Genitourinary: Reports: No Symptoms Musculoskeletal: Reports: No Symptoms Skin: Reports: No Symptoms Neurological: Reports: No Symptoms Psychiatric: Reports: No Symptoms - Patient Data Vitals - Most Recent: Last Vital Signs Temp 97.2 F 10/04/20 12:00 Pulse 78 10/04/20 14:19 Resp 18 10/04/20 12:00 BP 149/73 H 10/04/20 12:00 Pulse Ox 96 10/04/20 14:19 Weight - Most Recent: 245 lb 3.2 oz I&O - Last 24 hours: Intake & Output 10/04/20 10/04/20 10/04/20 06:59 14:59 22:59 Intake Total 550 2213 Balance 550 2213 Lab Results - Last 24 hrs: Laboratory Results - last 24 hr 10/03/20 10/03/20 10/03/20 Range/Units 16:46 18:23 20:24 Hgb (12.0-16.0) g/dL Sodium (136-145) mmol/L Potassium (3.5-5.1) mmol/L Chloride (98-107) mmol/L Carbon Dioxide (21-32) mmol/L Anion Gap (7-13) mEq/L BUN (7-18) mg/dL Creatinine (0.55-1.02) mg/dL Est Cr Clr Drug Dosing mL/min Estimated GFR (MDRD) Glucose (70-99) mg/dL POC Glucose 432 H* 436 H* 459 H* (70-99) mg/dL Calcium (8.5-10.1) mg/dL Phosphorus (2.6-4.7) mg/dL Magnesium (1.8-2.4) mg/dL 10/03/20 10/03/20 10/04/20 Range/Units 21:57 23:51 01:07 Hgb (12.0-16.0) g/dL Sodium (136-145) mmol/L Potassium (3.5-5.1) mmol/L Chloride (98-107) mmol/L Carbon Dioxide (21-32) mmol/L Anion Gap (7-13) mEq/L BUN (7-18) mg/dL Creatinine (0.55-1.02) mg/dL Est Cr Clr Drug Dosing mL/min Estimated GFR (MDRD) Glucose (70-99) mg/dL POC Glucose 418 H* 423 H* 346 H (70-99) mg/dL Calcium (8.5-10.1) mg/dL Phosphorus (2.6-4.7) mg/dL Magnesium (1.8-2.4) mg/dL 10/04/20 10/04/20 10/04/20 Range/Units 05:35 05:35 07:35 Hgb 10.4 L (12.0-16.0) g/dL Sodium 145 (136-145) mmol/L Potassium 4.6 (3.5-5.1) mmol/L Chloride 109 H (98-107) mmol/L Carbon Dioxide 22 (21-32) mmol/L Anion Gap 18.6 H (7-13) mEq/L BUN 33 H (7-18) mg/dL Creatinine 2.02 H (0.55-1.02) mg/dL Est Cr Clr Drug Dosing 35.10 mL/min Estimated GFR (MDRD) 27 Glucose 160 H (70-99) mg/dL POC Glucose 99 (70-99) mg/dL Calcium 8.9 (8.5-10.1) mg/dL Phosphorus 2.4 L (2.6-4.7) mg/dL Magnesium 2.3 (1.8-2.4) mg/dL 10/04/20 Range/Units 11:39 Hgb (12.0-16.0) g/dL Sodium (136-145) mmol/L Potassium (3.5-5.1) mmol/L Chloride (98-107) mmol/L Carbon Dioxide (21-32) mmol/L Anion Gap (7-13) mEq/L BUN (7-18) mg/dL Creatinine (0.55-1.02) mg/dL Est Cr Clr Drug Dosing mL/min Estimated GFR (MDRD) Glucose (70-99) mg/dL POC Glucose 267 H (70-99) mg/dL Calcium (8.5-10.1) mg/dL Phosphorus (2.6-4.7) mg/dL Magnesium (1.8-2.4) mg/dL JHONNY Results - Last 24 hrs: Microbiology 10/02/20 16:46 Aerobic Blood Culture - Preliminary Blood - Arm, Left NO GROWTH AFTER 1 DAY Anaerobic Blood Culture - Preliminary NO GROWTH AFTER 1 DAY 10/02/20 16:41 Aerobic Blood Culture - Preliminary Blood - Arm, Right NO GROWTH AFTER 1 DAY Anaerobic Blood Culture - Final Med Orders - Current: Current Medications Acetaminophen (Acetaminophen 325 Mg Tab) 650 mg PO Q4H PRN PRN Reason: Pain (Mild 1-3)/fever Albuterol/Ipratropium (Albuterol/Ipratropium 3.0-0.5 Mg/3 Ml Neb Soln) 3 ml NEB Q4HRRT ON LICENSE OF [facility] Last Admin: 10/04/20 14:18 Dose: 3 ml Documented by: Amitriptyline HCl (Amitriptyline 25 Mg Tab) 25 mg PO BEDTIME ON LICENSE OF [facility] Last Admin: 10/03/20 20:01 Dose: 25 mg Documented by: Ascorbic Acid (Ascorbic Acid 500 Mg Tab) 250 mg PO DAILY ON LICENSE OF [facility] Last Admin: 10/04/20 08:44 Dose: 250 mg Documented by: Azathioprine (Azathioprine 50 Mg Tab) 50 mg PO DAILY ON LICENSE OF [facility] Last Admin: 10/04/20 08:45 Dose: 50 mg Documented by: Bupropion HCl (Bupropion 150 Mg Tab.Er) 150 mg PO DAILY ON LICENSE OF [facility] Last Admin: 10/04/20 08:43 Dose: 150 mg Documented by: Dextrose/Water (50% Dextrose In Water 50 Ml Syringe) 50 ml IVPUSH Q15M PRN PRN Reason: Hypoglycemia Duloxetine HCl (Duloxetine 30 Mg Cap) 30 mg PO BEDTIME ON LICENSE OF [facility] Last Admin: 10/03/20 19:59 Dose: 30 mg Documented by: Duloxetine HCl (Duloxetine 30 Mg Cap) 60 mg PO DAILY ON LICENSE OF [facility] Last Admin: 10/04/20 08:43 Dose: 60 mg Documented by: Ferrous Sulfate (Ferrous Sulfate 325 Mg Tab) 325 mg PO BIDMEALS ON LICENSE OF [facility] Last Admin: 10/04/20 08:43 Dose: 325 mg Documented by: Glucagon (Glucagon,Human Recombinant 1 Mg Vial) 1 mg IM Q15M PRN PRN Reason: Hypoglycemia Heparin Sodium (Porcine) (Heparin Sodium 5,000 Units/Ml Vial) 5,000 units SUBCUT Q12HR ON LICENSE OF [facility] Last Admin: 10/04/20 08:45 Dose: 5,000 units Documented by: Sodium Chloride (Normal Saline) 1,000 mls @ 100 mls/hr IV ASDIRECTED ON LICENSE OF [facility] Last Admin: 10/04/20 09:06 Dose: 100 mls/hr Documented by: Azithromycin 500 mg/ Sodium (Chloride) 250 mls @ 250 mls/hr IV Q24H ON LICENSE OF [facility] Last Infusion: 10/03/20 23:58 Dose: Infused Documented by: Ceftriaxone Sodium 1 gm/ (Sodium Chloride) 50 mls @ 100 mls/hr IV Q24H ON LICENSE OF [facility] Last Infusion: 10/03/20 17:43 Dose: Infused Documented by: Insulin Glargine (Insulin Glarg,Human.Rec.Analog 100 Unit/Ml) 37 unit SUBCUT BID ON LICENSE OF [facility] Last Admin: 10/04/20 08:59 Dose: 37 units Documented by: Insulin Human Lispro (Insulin Lispro 100 Units/Ml 3 Ml Vial) 0 unit SUBCUT WITHMEALSANDBED ON LICENSE OF [facility]; Protocol Last Admin: 10/04/20 13:05 Dose: 3 units Documented by: Methylprednisolone Sodium Succinate (Methylprednisolone Sodium Succinate 40 Mg/1 Ml Sdv) 20 mg IVPUSH Q8H ON LICENSE OF [facility] Last Admin: 10/04/20 08:48 Dose: 20 mg Documented by: Non-Formulary Medication (Cyclosporine [Restasis]) 1 drop EYEBOTH BID ON LICENSE OF [facility] Non-Formulary Medication (Diclofenac Sodium [Voltaren 1% Gel]) 2 g TOP BID ON LICENSE OF [facility] Non-Formulary Medication (Mirabegron [Myrbetriq]) 25 mg PO DAILY ON LICENSE OF [facility] Non-Formulary Medication (Pilocarpine Hcl [Salagen]) 5 mg PO TID NELLY Ondansetron HCl (Ondansetron 4 Mg/2 Ml Sdv) 4 mg IVPUSH Q4H PRN PRN Reason: Nausea/Vomiting Oxycodone HCl (Oxycodone 5 Mg Tab) 5 mg PO Q6H PRN PRN Reason: Pain Last Admin: 10/04/20 09:43 Dose: 5 mg Documented by: Pantoprazole Sodium (Pantoprazole 40 Mg Tab.Cr) 40 mg PO ACBREAKFAST ON LICENSE OF [facility] Last Admin: 10/04/20 05:19 Dose: 40 mg Documented by: Pregabalin (Pregabalin 150 Mg Cap) 150 mg PO TID ON LICENSE OF [facility] Last Admin: 10/04/20 13:50 Dose: 150 mg Documented by: Ropinirole HCl (Ropinirole 0.25 Mg Tab) 0.25 mg PO BEDTIME ON LICENSE OF [facility] Last Admin: 10/03/20 20:01 Dose: 0.25 mg Documented by: Rosuvastatin Calcium (Rosuvastatin 10 Mg Tab) 20 mg PO DAILY ON LICENSE OF [facility] Last Admin: 10/04/20 08:43 Dose: 20 mg Documented by: Sodium Chloride (Sodium Chloride 0.9% 10 Ml Syringe) 10 ml FLUSH ASDIRECTED PRN PRN Reason: Keep Vein Open Last Admin: 10/04/20 00:16 Dose: 10 ml Documented by: Discontinued Medications Ceftriaxone Sodium 1 gm/ (Sodium Chloride) 50 mls @ 100 mls/hr IV ONETIME ONE Stop: 10/02/20 16:53 Last Admin: 10/02/20 16:41 Dose: 100 mls/hr Documented by: Magnesium Sulfate 2 gm/ Premix 50 mls @ 25 mls/hr IV ONETIME ONE Stop: 10/03/20 09:22 Last Infusion: 10/03/20 10:45 Dose: Infused Documented by: Insulin Human Lispro (Insulin Lispro 100 Units/Ml 3 Ml Vial) 30 unit SUBCUT ONETIME ONE Stop: 10/02/20 22:20 Last Admin: 10/02/20 22:47 Dose: 30 units Documented by: Insulin Human Lispro (Insulin Lispro 100 Units/Ml 3 Ml Vial) 45 unit SUBCUT ONETIME ONE Stop: 10/02/20 23:51 Last Admin: 10/03/20 00:25 Dose: 45 units Documented by: Insulin Human Lispro (Insulin Lispro 100 Units/Ml 3 Ml Vial) 55 unit SUBCUT ONETIME ONE Stop: 10/03/20 01:50 Last Admin: 10/03/20 02:18 Dose: 55 units Documented by: Insulin Human Lispro (Insulin Lispro 100 Units/Ml 3 Ml Vial) 26 unit SUBCUT ONETIME ONE Stop: 10/03/20 12:06 Last Admin: 10/03/20 12:36 Dose: 26 units Documented by: Insulin Human Lispro (Insulin Lispro 100 Units/Ml 3 Ml Vial) 30 unit SUBCUT ONETIME ONE Stop: 10/03/20 17:02 Last Admin: 10/03/20 17:15 Dose: 30 units Documented by: Insulin Human Lispro (Insulin Lispro 100 Units/Ml 3 Ml Vial) 42 unit SUBCUT ONETIME ONE Stop: 10/03/20 18:28 Last Admin: 10/03/20 19:26 Dose: 42 units Documented by: Insulin Human Lispro (Insulin Lispro 100 Units/Ml 3 Ml Vial) 55 unit SUBCUT ONETIME ONE Stop: 10/03/20 20:31 Last Admin: 10/03/20 20:49 Dose: 55 unit Documented by: Insulin Human Lispro (Insulin Lispro 100 Units/Ml 3 Ml Vial) 65 unit SUBCUT ONETIME ONE Stop: 10/03/20 22:02 Last Admin: 10/03/20 22:19 Dose: 65 unit Documented by: Insulin Human Lispro (Insulin Lispro 100 Units/Ml 3 Ml Vial) 85 unit SUBCUT ONETIME ONE Stop: 10/03/20 23:56 Last Admin: 10/04/20 00:05 Dose: 85 units Documented by: Ketorolac Tromethamine (Ketorolac 30 Mg/Ml Sdv) 30 mg IVPUSH ONETIME ONE Stop: 10/02/20 17:54 Last Admin: 10/02/20 17:58 Dose: 30 mg Documented by: Methylprednisolone Sodium Succinate (Methylprednisolone Sodium Succinate 125 Mg/2 Ml Sdv) 125 mg IVPUSH ONETIME ONE Stop: 10/02/20 16:26 Last Admin: 10/02/20 16:40 Dose: 125 mg Documented by: Methylprednisolone Sodium Succinate (Methylprednisolone Sodium Succinate 40 Mg/1 Ml Sdv) 60 mg IVPUSH Q8H NELLY Last Admin: 10/03/20 08:30 Dose: 60 mg Documented by: Patient Own Medication (Patient's Own Medication 1 Each) each IVPUSH .WEEKLY ON LICENSE OF [facility] Potassium Chloride (Potassium Chloride 10 Meq Tab.Er) 40 meq PO ONETIME ONE Stop: 10/02/20 21:32 Last Admin: 10/02/20 22:48 Dose: 40 meq Documented by: - Exam General: Reports: Alert, Oriented HEENT: Reports: Pupils Equal, Pupils Reactive, EOMI, Mucous Membr. Moist/[place] Neck: Reports: Supple Lungs: Reports: Clear to Auscultation, Normal Respiratory Effort Cardiovascular: Reports: Regular Rate, Regular Rhythm GI/Abdominal Exam: Normal Bowel Sounds, Soft, Non-Tender, No Organomegaly, No Distention, No Abnormal Bruit, No Mass, Pelvis Stable Back Exam: Reports: Normal Inspection, Full Range of Motion Extremities: Normal Inspection, Normal Range of Motion, Non-Tender, No Pedal Edema, Normal Capillary Refill Skin: Reports: Warm, Dry, Intact Wound/Incisions: Reports: Healing Well Neurological: Reports: No New Focal Deficit Psy/Mental Status: Reports: Alert, Normal Affect, Normal Mood
== END 2020-10-04 17:07 | disposition home or self-care (01) | DRG 190 ==
LOC: DL.ED 15:08 → DL.MS 21:27
PROVIDERS: ADMIT Internal Medicine; ATTEND Internal Medicine
DX: R09.02 Hypoxemia (principal); R05 Cough; J44.0 Chronic obstructive pulmonary disease with (acute) lower respiratory infection; J18.9 Pneumonia, unspecified organism; D84.9 Immunodeficiency, unspecified; E87.6 Hypokalemia; J44.1 Chronic obstructive pulmonary disease with (acute) exacerbation; M06.9 Rheumatoid arthritis, unspecified; M32.9 Systemic lupus erythematosus, unspecified; H54.7 Unspecified visual loss; H91.90 Unspecified hearing loss, unspecified ear; I10 Essential (primary) hypertension; G89.29 Other chronic pain; M54.9 Dorsalgia, unspecified; M79.7 Fibromyalgia; M41.9 Scoliosis, unspecified; E11.9 Type 2 diabetes mellitus without complications; F41.9 Anxiety disorder, unspecified; E83.42 Hypomagnesemia; Z20.822 Contact with and (suspected) exposure to COVID-19; E83.39 Other disorders of phosphorus metabolism; Z87.442 Personal history of urinary calculi; Z86.14 Personal history of Methicillin resistant Staphylococcus aureus infection; Z86.16 Personal history of COVID-19; Z88.8 Allergy status to other drugs, medicaments and biological substances; Z79.4 Long term (current) use of insulin; Z79.52 Long term (current) use of systemic steroids; Z79.899 Other long term (current) drug therapy; N32.81 Overactive bladder; Z91.19 Patient's noncompliance with other medical treatment and regimen; G25.81 Restless legs syndrome; E78.5 Hyperlipidemia, unspecified; E66.9 Obesity, unspecified; G47.33 Obstructive sleep apnea (adult) (pediatric); D50.9 Iron deficiency anemia, unspecified
CPT/HCPCS: 36415; 71046; 71250; 80048; 80053; 82565; 82728; 82947; 83540; 83550; 83605; 83735; 83970; 84100; 84484; 85018; 85025; 85379; 86140; 87040; 93005; 93010; 94640; 99223; 99232; 99239; 99284; A9270-GY; J0456; J0696; J1644; J1815-GY; J1885; J2920; J2930; J3475; J7030; J7050; J7500; J7620-GY; U0002

== ENCOUNTER 2021-01-23 22:12 | Emergency (ER) | payer MEDICARE, MEDICAID ==
[2021-01-23] MEDS ORDERED: Codeine/guaiFENesin 10-100 MG/5 ML Syrup 5 ML Cup PO ONE ×2 (22:13→23:32)
[2021-01-23] MEDS ORDERED: Ondansetron 4 MG Tab.DIS PO ONE (22:13)
[2021-01-23 23:12] LABS: CORONAVIRUS COVID-19 NAA NEGATIVE (NEGATIVE)
[2021-01-23] MEDS ORDERED: Albuterol/Ipratropium 3.0-0.5 MG/3 ML Neb Soln NEB ONE (23:25)
[2021-01-23] MEDS ORDERED: methylPREDNISolone Sodium Succinate 125 MG/2 ML SDV IVPUSH ONE (23:50)
[2021-01-23 23:59] LABS: ANION GAP 16.5 mEq/L (7-13)
[2021-01-24] MEDS ORDERED: Ketorolac 30 MG/ML SDV IVPUSH ONE (00:04)
[2021-01-24] MEDS ORDERED: Ondansetron 4 MG/2 ML SDV IV ONE (00:04)
[2021-01-24] MEDS ORDERED: Ondansetron 4 MG Tab.DIS ONE (01:01)
[2021-01-24] MEDS ORDERED: Codeine/guaiFENesin 10-100 MG/5 ML Syrup 5 ML Cup ONE (01:01)
[2021-01-24 01:40] VITALS: BP 149/115; PULSE 100
== END 2021-01-24 01:33 | disposition home or self-care (01) ==
LOC: DL.ED 22:12
DX: J40 Bronchitis, not specified as acute or chronic (principal); M32.9 Systemic lupus erythematosus, unspecified; E11.9 Type 2 diabetes mellitus without complications; I10 Essential (primary) hypertension; E66.9 Obesity, unspecified; Z88.8 Allergy status to other drugs, medicaments and biological substances; Z79.4 Long term (current) use of insulin; Z68.30 Body mass index [BMI] 30.0-30.9, adult; Z79.899 Other long term (current) drug therapy; Z20.822 Contact with and (suspected) exposure to COVID-19; R06.2 Wheezing
CPT/HCPCS: 0240U; 36415; 71045; 80053; 83605; 83880; 85025; 86140; 87040; 96374; 96375; 99283; 99284; A9270; J1885; J2405; J2930; J7620-GY

== ENCOUNTER 2021-02-10 00:35 | Emergency (ER) | payer MEDICARE, MEDICAID ==
[2021-02-10] MEDS ORDERED: 50% Dextrose in Water 50 ML Syringe IVPUSH PRN (00:58)
[2021-02-10] MEDS ORDERED: Glucagon,Human Recombinant 1 MG Vial IM PRN (00:58)
[2021-02-10] MEDS ORDERED: Insulin Regular, Human 100 Units/ML 3 ML Vial IV ONE (00:58)
[2021-02-10 01:06] VITALS: BP 150/85; PULSE 86
[2021-02-10 01:31] LABS: ANION GAP 16.9 mEq/L (7-13); CHLORIDE,CL 95 mmol/L (98-107); SODIUM,NA 135 mmol/L (136-145)
--- NOTE | 2021-02-10 01:38 | EDM.PDOC ---
ED HPI GENERAL MEDICAL PROBLEM - General Chief Complaint: General Stated Complaint: CAME FROM [place], STATED DR WANTED HER ADMITTED Time Seen by Provider: 02/10/21 01:00 Source of Information: Reports: Patient, RN, Other History Limitations: Reports: No Limitations - History of Present Illness INITIAL COMMENTS - FREE TEXT/NARRATIVE: ED, stating here to be admitted, her Dr in [place] called and told her she should go to hospital here because blood work off. This provider spoke with patient's Radiologic Electronic Specialist aproximately 1930. MD reported patient was seen there in am and blood sugar 633 but was just reviewing labs. Was scheduled to see sales program manager regarding ulcer on right foot. Patient was no show for that appointment stating her transportation car [place] and was in the shop. Patient further relayed that she was just leaving when MD called her but she didn't want to go there and roads icy so took things slow. Approximately 0100 on arrival - 5 hours to travel 90 miles. Patient c/o LLQ abdominal pain has had about 2 weeks, lose stools, chronic, no blood. CT scheduled in [place] next week. Patient states has not checked blood sugars today and has not taken any of her long or short acting insulin today. Bilateral Hip Pain Score (Numeric/FACES): 7 Lower Back Pain Score (Numeric/FACES): 7 - Related Data Allergies Allergy/AdvReac Type Severity Reaction Status Date / Time rituximab Allergy Severe Anaphylactic Verified 02/10/21 01:12 Shock Home Meds: Home Meds Insulin Glargine,Hum.Rec.Anlog [Constance Roe U-100] 37 unit SQ BID 10/31/18 [History] Mirabegron [Myrbetriq] 25 mg PO DAILY 10/31/18 [History] Pregabalin [Lyrica] 150 mg PO TID 10/31/18 [History] DULoxetine [Cymbalta] 30 mg PO BEDTIME 02/06/20 [History] azaTHIOprine [Azathioprine] 50 mg PO DAILY 02/06/20 [History] buPROPion [buPROPion XL] 150 mg PO DAILY 02/06/20 [History] Amitriptyline [Elavil] 25 mg PO BEDTIME 07/27/20 [History] DULoxetine [Cymbalta] 60 mg PO DAILY 07/27/20 [History] Diclofenac Sodium [Voltaren 1% Gel] 2 g TOP BID 07/27/20 [History] Ergocalciferol (Vitamin D2) [Vitamin D2] 1.25 mg PO WEEKLY 07/27/20 [History] Pantoprazole [ProTONIX] 40 mg PO BIDMEALS 07/27/20 [History] Pilocarpine HCl [Salagen] 5 mg PO TID 07/27/20 [History] tiZANidine [Zanaflex] 1 mg PO Q8H PRN 07/27/20 [History] oxyCODONE 5 mg PO Q6H PRN 10/02/20 [History] Ascorbic Acid [Vitamin C] 250 mg PO DAILY 30 Days #30 tablet 10/04/20 [Rx] Doxycycline [Vibra-Tabs] 100 mg PO Q12HR 4 Days #8 tab 10/04/20 [Rx] Ferrous Sulfate 325 mg PO BIDMEALS 30 Days #60 tablet 10/04/20 [Rx] Rosuvastatin [Crestor] 20 mg PO DAILY tablet 10/04/20 [Rx] cycloSPORINE [Restasis] 1 drop EYEBOTH BID 10/04/20 [Rx] predniSONE [Prednisone] 10 mg PO DAILY 1 Days #1 tablet 10/04/20 [Rx] rOPINIRole [Requip] 0.25 mg PO BEDTIME tablet 10/04/20 [Rx] Past Medical History - Past Health History Medical/Surgical History: Denies Medical/Surgical History HEENT History: Reports: Cataract, Hard of Hearing, Impaired Vision, Other (See Below) Other HEENT History: wears glasses Cardiovascular History: Reports: Hypertension, SOB on Exertion Respiratory History: Reports: Bronchitis, Recurrent, Sleep Apnea, SOB Gastrointestinal History: Reports: Diverticulosis, Gastritis, Other (See Below) Other Gastrointestinal History: chronic stomach pains. ABCESS OF ABDOMEN Genitourinary History: Reports: Renal Disease, UTI, Recurrent, Other (See Below) Other Genitourinary History: RENAL ABSCESS CONSUMER CREDIT COUNSELOR History: Reports: , Other (See Below) Other CONSUMER CREDIT COUNSELOR History: 2 Musculoskeletal History: Reports: Amputation, Back Pain, Chronic, Fibromyalgia, RA, SLE, Other (See Below) Other Musculoskeletal History: Scoliosis of the spine w/ chronic back pain. OSTEOMELITIS OF RIGHT FOOT, healed 05/10/17 Neurological History: Reports: Other (See Below) Other Neuro History: SOMNOLENCE, DAYTIME, nerve damage to back and legs Psychiatric History: Reports: Anxiety, Eating Disorders Endocrine/Metabolic History: Reports: Diabetes, Type II, IDDM, Obesity/BMI 30+, Vitamin D Deficiency Hematologic History: Reports: Iron Deficiency, Other (See Below) Other Hematologic History: HX OF SEPSIS. HX OF MRSA INFECTION Immunologic History: Reports: Immunosuppression, Other (See Below) Other Immunologic History: RA and Lupus Oncologic (Cancer) History: Reports: None Dermatologic History: Reports: Cellulitis, Other (See Below) Other Dermatologic History: hx of mrsa. HX OF SKIN ULCERS OF FOOT, BILAT. DIABETIC SKIN ULCERS. CELLULITIS OF L ANTERIOR LOWER LEG. BIOPSY OF SKIN LESION - Infectious Disease History Infectious Disease History: Reports: Influenza, MRSA, Novel Coronavirus, Shingles Other Infectious Disease History: CELLULITIS - Past Surgical History Head Surgeries/Procedures: Reports: None HEENT Surgical History: Reports: Cataract Surgery Other HEENT Surgeries/Procedures: BILAT CATARACT EXTRACTION WITH LENS PLACEMENT Cardiovascular Surgical History: Reports: None Respiratory Surgical History: Reports: None GI Surgical History: Reports: None Other GI Surgeries/Procedures: pt states "to remove infection in my stomach". I & D OF ABDOMINAL ABSCESS Female Surgical History: Reports: Other (See Below) Other Female Surgeries/Procedures: cyst on her left kidney Endocrine Surgical History: Reports: None Neurological Surgical History: Reports: None Musculoskeletal Surgical History: Reports: Amputation, Other (See Below) Other Musculoskeletal Surgeries/Procedures:: right toe ampulation Oncologic Surgical History: Reports: None Dermatological Surgical History: Reports: Other (See Below) Social & Family History - Family History Family Medical History: No Pertinent Family History HEENT: Reports: None Cardiac: Reports: None Respiratory: Reports: None GI: Reports: None : Reports: None OBGYN: Reports: None Musculoskeletal: Reports: RA Neurological: Reports: None Psychiatric: Reports: Depression Endocrine/Metabolic: Reports: Diabetes, type II Hematologic: Reports: None Immunologic: Reports: None Dermatologic: Reports: None Oncologic: Reports: None - Tobacco Use Tobacco Use Status *Q: Never Tobacco User Second Hand Smoke Exposure: No - Caffeine Use Caffeine Use: Reports: Coffee, Tea Other Caffeine Use: 16oz daily Caffeine Use Comment: 3/day - Recreational Drug Use Recreational Drug Use: No - Living Situation & Occupation Living situation: Reports: with Family ED ROS GENERAL - Review of Systems Review Of Systems: See Below Constitutional: Reports: Fatigue HEENT: Reports: Glasses Respiratory: Reports: No Symptoms Cardiovascular: Reports: Edema (left knee) Endocrine: Reports: High Glucose GI/Abdominal: Reports: Abdominal Pain (LLQ), Diarrhea : Reports: No Symptoms Musculoskeletal: Reports: Joint Pain (RA, multiple nonspecific joint complaints all chronic) Skin: Reports: Wound (righ foot, open ulcer tip 5th toe, no redness, scabbed crusting base 1st metatarmal at amputation site) Neurological: Reports: No Symptoms ED EXAM, GENERAL - Physical Exam Exam: See Below Exam Limited By: No Limitations General Appearance: Alert, No Apparent Distress, Obese Eye Exam: Bilateral Eye: EOMI, PERRL Ears: Normal External Exam, Hearing Grossly Normal Nose: Normal Inspection Throat/Mouth: Normal Inspection Head: Atraumatic, Normocephalic Neck: Normal Inspection Respiratory/Chest: No Respiratory Distress, Lungs Clear, Normal Breath Sounds Cardiovascular: Normal Peripheral Pulses, Regular Rate, Rhythm GI/Abdominal: Normal Bowel Sounds, Soft, Tender (LLQ) Extremities: Limited Range of Motion Neurological: Alert, Oriented, Normal Cognition Psychiatric: Flat Affect Skin Exam: Warm, Dry, Normal Color, Wound/Incision (right 5th toe, right firt distal metatarsal). No: Erythema Course - Vital Signs Last Recorded V/S: Last Vital Signs Temp 97.4 F 02/10/21 01:00 Pulse 86 02/10/21 01:00 Resp 18 02/10/21 01:00 BP 150/85 H 02/10/21 01:00 Pulse Ox 96 02/10/21 01:00 - Orders/Labs/Meds Orders: Active Orders 24 hr Category Date Time Status Blood Glucose Check, Bedside [RC] ONETIME Care 02/10/21 00:39 Active Blood Glucose Check, Bedside [RC] ONETIME Care 02/10/21 01:45 Active Blood Glucose Check, Bedside [RC] ONETIME Care 02/10/21 04:31 Active Blood Glucose Check, Bedside [RC] ONETIME Care 02/10/21 04:31 Active CULTURE BLOOD [BC] Stat Lab 02/10/21 00:50 Received UA W/MICROSCOPIC [URIN] Stat Lab 02/10/21 06:00 Results Dextrose 50% in Water Med 02/10/21 00:58 Active 50 ml IVPUSH Q15M PRN Glucagon,Human Recombinant [GlucaGen] Med 02/10/21 00:58 Active 1 mg IM Q15M PRN Medication Orders Dextrose/Water (50% Dextrose In Water 50 Ml Syringe) 50 ml IVPUSH Q15M PRN PRN Reason: Hypoglycemia Glucagon (Glucagon,Human Recombinant 1 Mg Vial) 1 mg IM Q15M PRN PRN Reason: Hypoglycemia Labs: Laboratory Tests 02/10/21 02/10/21 02/10/21 Range/Units 00:50 00:50 00:50 WBC 7.7 (5.0-10.0) 10^3/uL RBC 4.37 (4.2-5.4) 10^6/uL Hgb 12.7 (12.0-16.0) g/dL Hct 38.6 (37.0-47.0) % MCV 88.3 (80-100) fL MCH 29.1 (27.0-34.0) pg MCHC 32.9 L (33.0-35.0) g/dL Plt Count 238 (150-450) 10^3/uL Neut % (Auto) 50.6 (42.2-75.2) % Lymph % (Auto) 40.1 (20.5-50.1) % Elk % (Auto) 7.4 (2-8) % Eos % (Auto) 1.6 (1.0-3.0) % Baso % (Auto) 0.3 (0.0-1.0) % ABG pH (7.35-7.45) ABG pCO2 (35-45) mmHg ABG pO2 (70-100) mmHg ABG HCO3 (22-26) mmol/L ABG O2 Saturation (95-100) % ABG Base Excess ((-2)-(+3)) mmol/L Luis Test O2 Delivery Device Sodium 135 L (136-145) mmol/L Potassium 3.9 (3.5-5.1) mmol/L Chloride 95 L (98-107) mmol/L Carbon Dioxide 27 (21-32) mmol/L Anion Gap 16.9 H (7-13) mEq/L BUN 17 (7-18) mg/dL Creatinine 1.65 H (0.55-1.02) mg/dL Est Cr Clr Drug Dosing 42.98 mL/min Estimated GFR (MDRD) 33 BUN/Creatinine Ratio 10.3 (No establ ref range) Glucose 478 H* (70-99) mg/dL POC Glucose (70-99) mg/dL Lactic Acid 2.8 H* (0.4-2.0) mmol/L Calcium 9.1 (8.5-10.1) mg/dL Magnesium 2.0 (1.8-2.4) mg/dL Total Bilirubin 0.3 (0.2-1.0) mg/dL AST 27 (15-37) U/L ALT 48 (14-59) U/L Alkaline Phosphatase 201 H (46-116) U/L C-Reactive Protein < 0.2 (0.0-0.9) mg/dL Total Protein 6.6 (6.4-8.2) g/dL Albumin 3.6 (3.4-5.0) g/dL Globulin 3.0 Albumin/Globulin Ratio 1.2 Amylase 40 (25-115) U/L Lipase 306 (73-393) U/L Urine Color (YELLOW) Urine Appearance (CLEAR) Urine pH (5.0-9.0) Ur Specific [place] (1.005-1.030) Urine Protein (NEGATIVE) Urine Glucose (UA) (NEGATIVE) Urine Ketones (NEGATIVE) Urine Occult Blood (NEGATIVE) Urine Nitrite (NEGATIVE) Urine Bilirubin (NEGATIVE) Urine Urobilinogen (0.2-1.0) mg/dL Ur Leukocyte Esterase (NEGATIVE) Ethyl Alcohol (0) mg/dL Ketones Negative SARS-CoV-2 RNA (DIVYA) (NEGATIVE) 02/10/21 02/10/21 02/10/21 Range/Units 00:50 00:54 01:25 WBC (5.0-10.0) 10^3/uL RBC (4.2-5.4) 10^6/uL Hgb (12.0-16.0) g/dL Hct (37.0-47.0) % MCV (80-100) fL MCH (27.0-34.0) pg MCHC (33.0-35.0) g/dL Plt Count (150-450) 10^3/uL Neut % (Auto) (42.2-75.2) % Lymph % (Auto) (20.5-50.1) % Elk % (Auto) (2-8) % Eos % (Auto) (1.0-3.0) % Baso % (Auto) (0.0-1.0) % ABG pH (7.35-7.45) ABG pCO2 (35-45) mmHg ABG pO2 (70-100) mmHg ABG HCO3 (22-26) mmol/L ABG O2 Saturation (95-100) % ABG Base Excess ((-2)-(+3)) mmol/L Luis Test O2 Delivery Device Sodium (136-145) mmol/L Potassium (3.5-5.1) mmol/L Chloride (98-107) mmol/L Carbon Dioxide (21-32) mmol/L Anion Gap (7-13) mEq/L BUN (7-18) mg/dL Creatinine (0.55-1.02) mg/dL Est Cr Clr Drug Dosing mL/min Estimated GFR (MDRD) BUN/Creatinine Ratio (No establ ref range) Glucose (70-99) mg/dL POC Glucose 467 H* (70-99) mg/dL Lactic Acid (0.4-2.0) mmol/L Calcium (8.5-10.1) mg/dL Magnesium (1.8-2.4) mg/dL Total Bilirubin (0.2-1.0) mg/dL AST (15-37) U/L ALT (14-59) U/L Alkaline Phosphatase (46-116) U/L C-Reactive Protein (0.0-0.9) mg/dL Total Protein (6.4-8.2) g/dL Albumin (3.4-5.0) g/dL Globulin Albumin/Globulin Ratio Amylase (25-115) U/L Lipase (73-393) U/L Urine Color (YELLOW) Urine Appearance (CLEAR) Urine pH (5.0-9.0) Ur Specific [place] (1.005-1.030) Urine Protein (NEGATIVE) Urine Glucose (UA) (NEGATIVE) Urine Ketones (NEGATIVE) Urine Occult Blood (NEGATIVE) Urine Nitrite (NEGATIVE) Urine Bilirubin (NEGATIVE) Urine Urobilinogen (0.2-1.0) mg/dL Ur Leukocyte Esterase (NEGATIVE) Ethyl Alcohol < 3 (0) mg/dL Ketones SARS-CoV-2 RNA (DIVYA) Negative (NEGATIVE) 02/10/21 02/10/21 02/10/21 Range/Units 01:59 02:05 04:26 WBC (5.0-10.0) 10^3/uL RBC (4.2-5.4) 10^6/uL Hgb (12.0-16.0) g/dL Hct (37.0-47.0) % MCV (80-100) fL MCH (27.0-34.0) pg MCHC (33.0-35.0) g/dL Plt Count (150-450) 10^3/uL Neut % (Auto) (42.2-75.2) % Lymph % (Auto) (20.5-50.1) % Elk % (Auto) (2-8) % Eos % (Auto) (1.0-3.0) % Baso % (Auto) (0.0-1.0) % ABG pH 7.41 (7.35-7.45) ABG pCO2 40 (35-45) mmHg ABG pO2 84 (70-100) mmHg ABG HCO3 24.4 (22-26) mmol/L ABG O2 Saturation 96 (95-100) % ABG Base Excess 0 ((-2)-(+3)) mmol/L Luis Test Positive O2 Delivery Device Room air Sodium (136-145) mmol/L Potassium (3.5-5.1) mmol/L Chloride (98-107) mmol/L Carbon Dioxide (21-32) mmol/L Anion Gap (7-13) mEq/L BUN (7-18) mg/dL Creatinine (0.55-1.02) mg/dL Est Cr Clr Drug Dosing mL/min Estimated GFR (MDRD) BUN/Creatinine Ratio (No establ ref range) Glucose (70-99) mg/dL POC Glucose 321 H 60 L (70-99) mg/dL Lactic Acid (0.4-2.0) mmol/L Calcium (8.5-10.1) mg/dL Magnesium (1.8-2.4) mg/dL Total Bilirubin (0.2-1.0) mg/dL AST (15-37) U/L ALT (14-59) U/L Alkaline Phosphatase (46-116) U/L C-Reactive Protein (0.0-0.9) mg/dL Total Protein (6.4-8.2) g/dL Albumin (3.4-5.0) g/dL Globulin Albumin/Globulin Ratio Amylase (25-115) U/L Lipase (73-393) U/L Urine Color (YELLOW) Urine Appearance (CLEAR) Urine pH (5.0-9.0) Ur Specific [place] (1.005-1.030) Urine Protein (NEGATIVE) Urine Glucose (UA) (NEGATIVE) Urine Ketones (NEGATIVE) Urine Occult Blood (NEGATIVE) Urine Nitrite (NEGATIVE) Urine Bilirubin (NEGATIVE) Urine Urobilinogen (0.2-1.0) mg/dL Ur Leukocyte Esterase (NEGATIVE) Ethyl Alcohol (0) mg/dL Ketones SARS-CoV-2 RNA (DIVYA) (NEGATIVE) 02/10/21 02/10/21 02/10/21 Range/Units 04:43 06:00 06:03 WBC (5.0-10.0) 10^3/uL RBC (4.2-5.4) 10^6/uL Hgb (12.0-16.0) g/dL Hct (37.0-47.0) % MCV (80-100) fL MCH (27.0-34.0) pg MCHC (33.0-35.0) g/dL Plt Count (150-450) 10^3/uL Neut % (Auto) (42.2-75.2) % Lymph % (Auto) (20.5-50.1) % Elk % (Auto) (2-8) % Eos % (Auto) (1.0-3.0) % Baso % (Auto) (0.0-1.0) % ABG pH (7.35-7.45) ABG pCO2 (35-45) mmHg ABG pO2 (70-100) mmHg ABG HCO3 (22-26) mmol/L ABG O2 Saturation (95-100) % ABG Base Excess ((-2)-(+3)) mmol/L Luis Test O2 Delivery Device Sodium (136-145) mmol/L Potassium (3.5-5.1) mmol/L Chloride (98-107) mmol/L Carbon Dioxide (21-32) mmol/L Anion Gap (7-13) mEq/L BUN (7-18) mg/dL Creatinine (0.55-1.02) mg/dL Est Cr Clr Drug Dosing mL/min Estimated GFR (MDRD) BUN/Creatinine Ratio (No establ ref range) Glucose (70-99) mg/dL POC Glucose 71 92 (70-99) mg/dL Lactic Acid (0.4-2.0) mmol/L Calcium (8.5-10.1) mg/dL Magnesium (1.8-2.4) mg/dL Total Bilirubin (0.2-1.0) mg/dL AST (15-37) U/L ALT (14-59) U/L Alkaline Phosphatase (46-116) U/L C-Reactive Protein (0.0-0.9) mg/dL Total Protein (6.4-8.2) g/dL Albumin (3.4-5.0) g/dL Globulin Albumin/Globulin Ratio Amylase (25-115) U/L Lipase (73-393) U/L Urine Color Yellow (YELLOW) Urine Appearance Clear (CLEAR) Urine pH 6.0 (5.0-9.0) Ur Specific [place] 1.020 (1.005-1.030) Urine Protein 100 H (NEGATIVE) Urine Glucose (UA) 250 H (NEGATIVE) Urine Ketones Negative (NEGATIVE) Urine Occult Blood Trace-intact H (NEGATIVE) Urine Nitrite Negative (NEGATIVE) Urine Bilirubin Negative (NEGATIVE) Urine Urobilinogen 0.2 (0.2-1.0) mg/dL Ur Leukocyte Esterase Negative (NEGATIVE) Ethyl Alcohol (0) mg/dL Ketones SARS-CoV-2 RNA (DIVYA) (NEGATIVE) Meds: Medications Generic Name Dose Route Start Last Admin Trade Name Bart PRN Reason Stop Dose Admin Dextrose/Water 50 ml 02/10/21 00:58 50% Dextrose In Water 50 Ml Syringe IVPUSH Q15M PRN Hypoglycemia Glucagon 1 mg 02/10/21 00:58 Glucagon,Human Recombinant 1 Mg Vial IM Q15M PRN Hypoglycemia Discontinued Medications Generic Name Dose Route Start Last Admin Trade Name Bart PRN Reason Stop Dose Admin Sodium Chloride 1,000 mls @ 500 mls/hr 02/10/21 01:52 02/10/21 02:11 Normal Saline IV 02/10/21 03:51 500 mls/hr .BOLUS ONE Administration Insulin Human Regular 10 unit 02/10/21 00:58 02/10/21 01:39 Insulin Regular, Human 100 Units/Ml 3 Ml Vial IV 02/10/21 00:59 10 units ONETIME ONE Administration Oxycodone/Acetaminophen 1 tab 02/10/21 03:02 Acetaminophen/Oxycodone 325-5 Mg Tab PO 02/10/21 03:03 ONETIME ONE Pregabalin 150 mg 02/10/21 02:32 02/10/21 02:39 Pregabalin 150 Mg Cap PO 02/10/21 02:33 150 mg ONETIME ONE Administration Departure - Departure Time of Disposition: 05:54 Disposition: Home, Self-Care 01 Condition: Fair Clinical Impression: Hyperglycemia due to diabetes mellitus, LLQ pain, Non compliance w medication regimen Chronic pain Qualifiers: Chronic pain type: chronic pain syndrome Qualified Code(s): G89.4 - Chronic pain syndrome Rheumatoid arthritis Qualifiers: Rheumatoid arthritis location: multiple sites Rheumatoid factor presence: unspecified presence Qualified Code(s): M06.9 - Rheumatoid arthritis, unspecified - Discharge Information *PRESCRIPTION DRUG MONITORING PROGRAM REVIEWED*: No *COPY OF PRESCRIPTION DRUG MONITORING REPORT IN PATIENT MAURICIO: No Instructions: Hyperglycemia, [id number] Forms: ED Department Discharge Additional Instructions: Take medications as prescribed including insulin monitor blood sugar follow up with podiatry regarding wounds on right foot. Sepsis Event Note (ED) - Evaluation Sepsis Screening Result: No Definite Risk - Focused Exam Vital Signs: Vital Signs Temp Pulse Resp BP Pulse Ox 02/10/21 01:00 97.4 F 86 18 150/85 H 96 - My Orders Last 24 Hours: My Active Orders 02/10/21 00:39 Blood Glucose Check, Bedside [RC] ONETIME 02/10/21 00:50 CULTURE BLOOD [BC] Stat 02/10/21 00:58 Dextrose 50% in Water 50 ml IVPUSH Q15M PRN Glucagon,Human Recombinant [GlucaGen] 1 mg IM Q15M PRN 02/10/21 01:45 Blood Glucose Check, Bedside [RC] ONETIME 02/10/21 04:31 Blood Glucose Check, Bedside [RC] ONETIME Blood Glucose Check, Bedside [RC] ONETIME 02/10/21 06:00 UA W/MICROSCOPIC [URIN] Stat - Assessment/Plan Last 24 Hours: My Active Orders 02/10/21 00:39 Blood Glucose Check, Bedside [RC] ONETIME 02/10/21 00:50 CULTURE BLOOD [BC] Stat 02/10/21 00:58 Dextrose 50% in Water 50 ml IVPUSH Q15M PRN Glucagon,Human Recombinant [GlucaGen] 1 mg IM Q15M PRN 02/10/21 01:45 Blood Glucose Check, Bedside [RC] ONETIME 02/10/21 04:31 Blood Glucose Check, Bedside [RC] ONETIME Blood Glucose Check, Bedside [] ONETIME 02/10/21 06:00 UA W/MICROSCOPIC [URIN] Stat
[2021-02-10] MEDS ORDERED: Sodium Chloride 0.9% 1,000 ML IV ONE (01:52)
[2021-02-10 02:33] LABS: ALLEN TEST POSITIVE; BASE EXCESS ARTERIAL 0 mmol/L ((-2)-(+3)); BICARBONATE,ARTERIAL 24.4 mmol/L (22-26); O2 DELIVERY DEVICE ROOM AIR; O2 SATURATION ARTERIAL 96 % (95-100); PCO2 ARTERIAL 40 mmHg (35-45); PO2 ARTERIAL 84 mmHg (70-100)
[2021-02-10] MEDS ORDERED: Acetaminophen/oxyCODONE 325-5 MG Tab PO ONE (03:02)
--- NOTE | 2021-02-10 03:46 | CT ---
PROCEDURE INFORMATION: Exam: CT Abdomen And Pelvis Without Contrast Exam date and time: 02/10/2021 2:09 AM Age: 45 years old Clinical indication: Other: Llq pain TECHNIQUE: Imaging protocol: Computed tomography of the abdomen and pelvis without contrast. Radiation optimization: All CT scans at this facility use at least one of these dose optimization techniques: automated exposure control; mA and/or kV adjustment per patient size (includes targeted exams where dose is matched to clinical indication); or iterative reconstruction. COMPARISON: CT Chest wo Cont 02/02/2020 1:39 AM FINDINGS: Lungs: Cystic bronchiectasis in both lung bases Liver: Normal. No mass. Gallbladder and bile ducts: Normal. No calcified stones. No ductal dilation. Pancreas: Normal. No ductal dilation. Spleen: Normal. No splenomegaly. Adrenal glands: Normal. No mass. Kidneys and ureters: Normal. No hydronephrosis. Stomach and bowel: Sigmoid diverticulosis but no evidence for diverticulitis. Appendix: No evidence of appendicitis. Intraperitoneal space: Unremarkable. No free air. No significant fluid collection. Vasculature: Unremarkable. No abdominal aortic aneurysm. Lymph nodes: Unremarkable. No enlarged lymph nodes. Urinary bladder: Unremarkable as visualized. Reproductive: Unremarkable as visualized. Bones/joints: Unremarkable. No acute fracture. Soft tissues: Unremarkable. IMPRESSION: 1. No acute intra-abdominal process identified. 2. Cystic bronchiectasis in both lung bases 3. Sigmoid diverticulosis but no evidence for diverticulitis.
== END 2021-02-10 06:46 | disposition home or self-care (01) ==
LOC: DL.ED 00:35
DX: E11.65 Type 2 diabetes mellitus with hyperglycemia (principal); G89.4 Chronic pain syndrome; R10.32 Left lower quadrant pain; M06.9 Rheumatoid arthritis, unspecified; I10 Essential (primary) hypertension; E66.9 Obesity, unspecified; Z68.38 Body mass index [BMI] 38.0-38.9, adult; Z91.14 Patient's other noncompliance with medication regimen; Z88.8 Allergy status to other drugs, medicaments and biological substances; Z79.4 Long term (current) use of insulin; Z79.899 Other long term (current) drug therapy; Z20.822 Contact with and (suspected) exposure to COVID-19
CPT/HCPCS: 36415; 36600; 74176; 80053; 80307; 81001; 82009; 82150; 82803; 82947; 83605; 83690; 83735; 85025; 86140; 87040; 93005; 99284; A9270; J1815; J7030; U0002

== ENCOUNTER 2021-03-05 03:09 | Emergency (ER) | payer MEDICARE, MEDICAID ==
--- NOTE | 2021-03-05 02:42 | EDM.PDOC ---
ED HPI GENERAL MEDICAL PROBLEM - General Stated Complaint: AMBULANCE Time Seen by Provider: 03/05/21 02:41 Source of Information: Reports: Patient, EMS, Old Records, RN, RN Notes Reviewed History Limitations: Reports: No Limitations - History of Present Illness INITIAL COMMENTS - FREE TEXT/NARRATIVE: Jamilah is a 45 y/o female who presents to the ED via [facility] with complaints of fever. On scene, the patient was noted to have wheezing and a tachycardic heart rhythm, therefore an albuterol nebulizer was administered. Upon arrival to this facility the patient is alert and oriented. She states her symptoms started two days ago and have progressively worsened in that time. Additionally, she notes headache, productive cough, sore throat, nausea, and diarrhea. She has taken no medications or performed supportive cares for her symptoms. She is uncertain of her TMax as she has no thermometer in her home. She denies chest pain/pressure, palpitations, shortness of breath, dyspepsia, vomiting, abdominal pain, dysuria, hematuria, hematochezia, or melena. The patient states she has been checking her blood sugars twice a day and she has not missed any doses of her previously prescribed medications. - Related Data Allergies Allergy/AdvReac Type Severity Reaction Status Date / Time rituximab Allergy Severe Anaphylactic Verified 02/10/21 01:12 Shock Home Meds: Home Meds Insulin Glargine,Hum.Rec.Anlog [Constance Roe U-100] 37 unit SQ BID 10/31/18 [History] Mirabegron [Myrbetriq] 25 mg PO DAILY 10/31/18 [History] Pregabalin [Lyrica] 150 mg PO TID 10/31/18 [History] DULoxetine [Cymbalta] 30 mg PO BEDTIME 02/06/20 [History] azaTHIOprine [Azathioprine] 50 mg PO DAILY 02/06/20 [History] buPROPion [buPROPion XL] 150 mg PO DAILY 02/06/20 [History] Amitriptyline [Elavil] 25 mg PO BEDTIME 07/27/20 [History] DULoxetine [Cymbalta] 60 mg PO DAILY 07/27/20 [History] Diclofenac Sodium [Voltaren 1% Gel] 2 g TOP BID 07/27/20 [History] Ergocalciferol (Vitamin D2) [Vitamin D2] 1.25 mg PO WEEKLY 07/27/20 [History] Pantoprazole [ProTONIX] 40 mg PO BIDMEALS 07/27/20 [History] Pilocarpine HCl [Salagen] 5 mg PO TID 07/27/20 [History] tiZANidine [Zanaflex] 1 mg PO Q8H PRN 07/27/20 [History] oxyCODONE 5 mg PO Q6H PRN 10/02/20 [History] Ascorbic Acid [Vitamin C] 250 mg PO DAILY 30 Days #30 tablet 10/04/20 [Rx] Doxycycline [Vibra-Tabs] 100 mg PO Q12HR 4 Days #8 tab 10/04/20 [Rx] Ferrous Sulfate 325 mg PO BIDMEALS 30 Days #60 tablet 10/04/20 [Rx] Rosuvastatin [Crestor] 20 mg PO DAILY tablet 10/04/20 [Rx] cycloSPORINE [Restasis] 1 drop EYEBOTH BID 10/04/20 [Rx] predniSONE [Prednisone] 10 mg PO DAILY 1 Days #1 tablet 10/04/20 [Rx] rOPINIRole [Requip] 0.25 mg PO BEDTIME tablet 10/04/20 [Rx] Past Medical History - Past Health History Medical/Surgical History: Denies Medical/Surgical History HEENT History: Reports: Cataract, Hard of Hearing, Impaired Vision, Other (See Below) Other HEENT History: wears glasses Cardiovascular History: Reports: Hypertension, SOB on Exertion Respiratory History: Reports: Bronchitis, Recurrent, Sleep Apnea, SOB Gastrointestinal History: Reports: Diverticulosis, Gastritis, Other (See Below) Other Gastrointestinal History: chronic stomach pains. 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 OSTEOMELITIS OF RIGHT FOOT, healed 05/10/17 Neurological History: Reports: Other (See Below) Other Neuro History: SOMNOLENCE, DAYTIME, nerve damage to back and legs Psychiatric History: Reports: Anxiety, Eating Disorders Endocrine/Metabolic History: Reports: Diabetes, Type II, IDDM, Obesity/BMI 30+, Vitamin D Deficiency Hematologic History: Reports: Iron Deficiency, Other (See Below) Other Hematologic History: HX OF SEPSIS. HX OF MRSA INFECTION Immunologic History: Reports: Immunosuppression, Other (See Below) Other Immunologic History: RA and Lupus Oncologic (Cancer) History: Reports: None Dermatologic History: Reports: Cellulitis, Other (See Below) Other Dermatologic History: hx of mrsa. HX OF SKIN ULCERS OF FOOT, BILAT. DIABETIC SKIN ULCERS. CELLULITIS OF L ANTERIOR LOWER LEG. BIOPSY OF SKIN LESION - Infectious Disease History Infectious Disease History: Reports: Influenza, MRSA, Novel Coronavirus, Shingles Other Infectious Disease History: CELLULITIS - Past Surgical History Head Surgeries/Procedures: Reports: None HEENT Surgical History: Reports: Cataract Surgery Other HEENT Surgeries/Procedures: BILAT CATARACT EXTRACTION WITH LENS PLACEMENT Cardiovascular Surgical History: Reports: None Respiratory Surgical History: Reports: None GI Surgical History: Reports: None Other GI Surgeries/Procedures: pt states "to remove infection in my stomach". I & D OF ABDOMINAL ABSCESS Female Surgical History: Reports: Other (See Below) Other Female Surgeries/Procedures: cyst on her left kidney Endocrine Surgical History: Reports: None Neurological Surgical History: Reports: None Musculoskeletal Surgical History: Reports: Amputation, Other (See Below) Other Musculoskeletal Surgeries/Procedures:: right toe ampulation Oncologic Surgical History: Reports: None Dermatological Surgical History: Reports: Other (See Below) Social & Family History - Family History Family Medical History: No Pertinent Family History HEENT: Reports: None Cardiac: Reports: None Respiratory: Reports: None GI: Reports: None : Reports: None OBGYN: Reports: None Musculoskeletal: Reports: RA Neurological: Reports: None Psychiatric: Reports: Depression Endocrine/Metabolic: Reports: Diabetes, type II Hematologic: Reports: None Immunologic: Reports: None Dermatologic: Reports: None Oncologic: Reports: None - Caffeine Use Caffeine Use: Reports: Coffee, Tea Other Caffeine Use: 16oz daily Caffeine Use Comment: 3/day - Living Situation & Occupation Living situation: Reports: with Family ED ROS GENERAL - Review of Systems Review Of Systems: Comprehensive ROS is negative, except as noted in HPI. ED EXAM, GENERAL - Physical Exam Exam: See Below Exam Limited By: No Limitations General Appearance: Alert, Moderate Distress (Fever, Headache), Obese Eye Exam: Bilateral Eye: EOMI, Normal Inspection, PERRL (3mm) Ears: Normal External Exam, Normal Canal, Hearing Grossly Normal, Normal TMs Ear Exam: Bilateral Ear: Auricle Normal, Canal Normal, TM normal Nose: Normal Inspection, Normal Mucosa, No Blood Throat/Mouth: Normal Voice, No Airway Compromise. No: Normal Oropharynx (Dry mucous membranes) Head: Atraumatic, Normocephalic Neck: Normal Inspection, Supple, Non-Tender, Full Range of Motion. No: Lymphadenopathy (L), Lymphadenopathy (R) Respiratory/Chest: No Respiratory Distress, No Accessory Muscle Use, Wheezing (Faint to bilateral upper lobes). No: Chest Non-Tender (To palpation of bilateral chest), Crackles, Rales, Rhonchi, Stridor Cardiovascular: Normal Peripheral Pulses, Regular Rate, Rhythm, No Edema, No Gallop, No JVD, No Murmur, No Rub, Tachycardia Peripheral Pulses: 2+: Radial (L), Radial (R) GI/Abdominal: Normal Bowel Sounds, Soft, Non-Tender, No Distention, No Abnormal Bruit, No Mass, Pelvis Stable (Female) Exam: Deferred Rectal (Female) Exam: Deferred Back Exam: Normal Inspection, Full Range of Motion Extremities: Normal Inspection, Normal Range of Motion, Normal Capillary Refill Neurological: Alert, Oriented, CN II-XII Intact, Normal Cognition, Normal Gait, No Motor/Sensory Deficits Psychiatric: Anxious, Tearful Skin Exam: Warm, Dry, Intact, No Rash, Other (Flushed). No: Cyanosis, Jaundice, Mottled, Pallor Lymphatic: No Adenopathy #1 Interpretation EKG Date: 03/05/21 Time: 02:39 Rhythm: Other (Sinus Tach) Rate (Beats/Min): 123 [place]: Normal P-Wave: Present QRS: Normal ST-T: Normal QT: Normal CT/PQ Interval: 0.125 Comparison: No Change EKG Interpretation Comments: ST; q-wave in III, aVR, and aVF; T-wave inversion in III and aVF (unchanged from EKG 02/10/21); No evidence of acute myocardial ischemia Course - Vital Signs Last Recorded V/S: Last Vital Signs Temp 103 F H 03/05/21 04:07 Pulse 123 H 03/05/21 03:10 Resp 18 03/05/21 03:10 BP 176/71 H 03/05/21 03:10 Pulse Ox 93 L 03/05/21 03:10 - Orders/Labs/Meds Orders: Active Orders 24 hr Category Date Time Status CULTURE BLOOD [BC] Stat Lab 03/05/21 02:50 Received Blood Culture x2 Reflex Set [OM.PC] Stat Oth 03/05/21 02:46 Ordered Labs: Laboratory Tests 03/05/21 03/05/21 03/05/21 Range/Units 02:40 02:50 02:50 WBC 7.4 (5.0-10.0) 10^3/uL RBC 4.44 (4.2-5.4) 10^6/uL Hgb 12.7 (12.0-16.0) g/dL Hct 39.9 (37.0-47.0) % MCV 89.9 (80-100) fL MCH 28.6 (27.0-34.0) pg MCHC 31.8 L (33.0-35.0) g/dL Plt Count 236 (150-450) 10^3/uL Neut % (Auto) 66.4 (42.2-75.2) % Lymph % (Auto) 23.0 (20.5-50.1) % [place] % (Auto) 9.4 H (2-8) % Eos % (Auto) 0.9 L (1.0-3.0) % Baso % (Auto) 0.3 (0.0-1.0) % Sodium 141 (136-145) mmol/L Potassium 3.4 L (3.5-5.1) mmol/L Chloride 100 (98-107) mmol/L Carbon Dioxide 27 (21-32) mmol/L Anion Gap 17.4 H (7-13) mEq/L BUN 13 (7-18) mg/dL Creatinine 1.67 H (0.55-1.02) mg/dL Est Cr Clr Drug Dosing TNP Estimated GFR (MDRD) 33 BUN/Creatinine Ratio 7.8 (No establ ref range) Glucose 169 H (70-99) mg/dL Lactic Acid (0.4-2.0) mmol/L Calcium 8.9 (8.5-10.1) mg/dL Magnesium 1.4 L (1.8-2.4) mg/dL Total Bilirubin 0.4 (0.2-1.0) mg/dL AST 62 H (15-37) U/L ALT 33 (14-59) U/L Alkaline Phosphatase 100 (46-116) U/L Troponin I High Sens 11 (<=51) pg/mL C-Reactive Protein 1.1 H (0.0-0.9) mg/dL Total Protein 6.9 (6.4-8.2) g/dL Albumin 3.3 L (3.4-5.0) g/dL Globulin 3.6 Albumin/Globulin Ratio 0.92 Ethyl Alcohol < 3 (0) mg/dL Influenza Type A RNA Positive H (NEGATIVE) Influenza Type B RNA Negative (NEGATIVE) SARS-CoV-2 RNA (DIVYA) Negative (NEGATIVE) 03/05/21 Range/Units 02:50 WBC (5.0-10.0) 10^3/uL RBC (4.2-5.4) 10^6/uL Hgb (12.0-16.0) g/dL Hct (37.0-47.0) % MCV (80-100) fL MCH (27.0-34.0) pg MCHC (33.0-35.0) g/dL Plt Count (150-450) 10^3/uL Neut % (Auto) (42.2-75.2) % Lymph % (Auto) (20.5-50.1) % [place] % (Auto) (2-8) % Eos % (Auto) (1.0-3.0) % Baso % (Auto) (0.0-1.0) % Sodium (136-145) mmol/L Potassium (3.5-5.1) mmol/L Chloride (98-107) mmol/L Carbon Dioxide (21-32) mmol/L Anion Gap (7-13) mEq/L BUN (7-18) mg/dL Creatinine (0.55-1.02) mg/dL Est Cr Clr Drug Dosing Estimated GFR (MDRD) BUN/Creatinine Ratio (No establ ref range) Glucose (70-99) mg/dL Lactic Acid 3.6 H* (0.4-2.0) mmol/L Calcium (8.5-10.1) mg/dL Magnesium (1.8-2.4) mg/dL Total Bilirubin (0.2-1.0) mg/dL AST (15-37) U/L ALT (14-59) U/L Alkaline Phosphatase (46-116) U/L Troponin I High Sens (<=51) pg/mL C-Reactive Protein (0.0-0.9) mg/dL Total Protein (6.4-8.2) g/dL Albumin (3.4-5.0) g/dL Globulin Albumin/Globulin Ratio Ethyl Alcohol (0) mg/dL Influenza Type A RNA (NEGATIVE) Influenza Type B RNA (NEGATIVE) SARS-CoV-2 RNA (DIVYA) (NEGATIVE) Meds: Medications Discontinued Medications Generic Name Dose Route Start Last Admin Trade Name Freq PRN Reason Stop Dose Admin Acetaminophen 1,000 mg 03/05/21 02:54 03/05/21 03:13 Acetaminophen 500 Mg Tab PO 03/05/21 02:55 1,000 mg ONETIME ONE Administration Sodium Chloride 1,000 mls @ 999 mls/hr 03/05/21 02:54 03/05/21 03:13 Normal Saline IV 03/05/21 03:54 999 mls/hr .BOLUS ONE Administration Ibuprofen 400 mg 03/05/21 03:57 03/05/21 04:07 Ibuprofen 400 Mg Tab PO 03/05/21 03:58 400 mg ONETIME ONE Administration Magnesium Oxide 500 mg 03/05/21 04:47 03/05/21 04:59 Magnesium Oxide 250 Mg Tab PO 03/05/21 04:48 500 mg ONETIME ONE Administration Oseltamivir Phosphate 75 mg 03/05/21 03:57 03/05/21 04:08 Oseltamivir 75 Mg Cap PO 03/05/21 03:58 75 mg ONETIME ONE Administration - Re-Assessments/Exams Free Text/Narrative Re-Assessment/Exam: 03/05/21 Acetaminophen 1gm and NS 1L bolus initiated while labs pending. COVID/Flu/RSV sent. Tamiflu 75mg and ibuprofen 400mg administered. Mag Ox 500mg PO administered. Findings of examination and lab work reviewed with patient. Will treat influenza A with Tamiflu. Supportive cares discussed. Patient instructed to follow up with primary care provider in 7-10 days regarding todays visit. Red flag signs and symptoms which would warrant immediate reevaluation reviewed. Patient verbalized understanding and agreement with the plan of care. Departure - Departure Time of Disposition: 05:23 Disposition: Home, Self-Care 01 Condition: Fair Clinical Impression: Influenza A, Hypomagnesemia - Discharge Information *PRESCRIPTION DRUG MONITORING PROGRAM REVIEWED*: Not Applicable *COPY OF PRESCRIPTION DRUG MONITORING REPORT IN PATIENT MAURICIO: Not Applicable Instructions: Influenza, Adult, [id number], Hypomagnesemia Referrals: Lee Mabry [Primary Care Provider] - Forms: ED Department Discharge Additional Instructions: Rx: Tamiflu 30mg (#14) 1.) Start your Tamiflu tomorrow morning and continue as prescribed until all pills are gone. 2.) You may take ibuprofen (Advil/Motrin) 400mg every six hours, as fever and headache persist. You may also take acetaminophen (Tylenol) 650-1000mg every six hours, as fever and headache persist. You may stagger these medications so you are taking a dose of either every three hours. 3.) Drink small, frequent sips of fluids to stay hydrated. 4.) Follow up with your primary care provider in 7-10 days, sooner should symptoms persist or worsen. Sepsis Event Note (ED) - Focused Exam Vital Signs: Vital Signs Temp Temp Pulse Resp BP Pulse Ox 03/05/21 04:07 103 F H 03/05/21 03:13 104.3 F H 03/05/21 03:10 104.3 F H 123 H 18 176/71 H 93 L - My Orders Last 24 Hours: My Active Orders 03/05/21 02:46 Blood Culture x2 Reflex Set [OM.PC] Stat 03/05/21 02:50 CULTURE BLOOD [BC] Stat - Assessment/Plan Last 24 Hours: My Active Orders 03/05/21 02:46 Blood Culture x2 Reflex Set [OM.PC] Stat 03/05/21 02:50 CULTURE BLOOD [BC] Stat
[~2021-03-05 03:09] MED LIST: Acetaminophen 500 MG Tab PO ONE; Sodium Chloride 0.9% 1,000 ML IV ONE
[2021-03-05 03:13] VITALS: BP 176/71; PULSE 123
[2021-03-05 03:14] LABS: ANION GAP 17.4 mEq/L (7-13); CHLORIDE,CL 100 mmol/L (98-107); SODIUM,NA 141 mmol/L (136-145)
[2021-03-05 03:42] LABS: CORONAVIRUS COVID-19 NAA NEGATIVE (NEGATIVE)
[2021-03-05] MEDS ORDERED: Oseltamivir 75 MG Cap PO ONE (03:57)
[2021-03-05] MEDS ORDERED: Ibuprofen 400 MG Tab PO ONE (03:57)
== END 2021-03-05 06:04 | disposition home or self-care (01) ==
LOC: DL.ED 03:09
DX: J10.1 Influenza due to other identified influenza virus with other respiratory manifestations (principal); E83.42 Hypomagnesemia; I10 Essential (primary) hypertension; E11.9 Type 2 diabetes mellitus without complications; E66.9 Obesity, unspecified; Z68.31 Body mass index [BMI] 31.0-31.9, adult; Z86.16 Personal history of COVID-19; Z20.822 Contact with and (suspected) exposure to COVID-19; Z79.899 Other long term (current) drug therapy; Z88.8 Allergy status to other drugs, medicaments and biological substances; Z79.4 Long term (current) use of insulin
CPT/HCPCS: 0240U; 36415; 80053; 80307; 83605; 83735; 84484; 85025; 86140; 87040; 93005; 99285; A9270; J7030

== ENCOUNTER 2021-03-30 14:20 | Emergency (ER) | payer MEDICARE, MEDICAID ==
[2021-03-30 14:56] VITALS: BP 158/81; PULSE 94
[2021-03-30 15:47] LABS: ANION GAP 15.4 mEq/L (7-13)
[2021-03-30] MEDS ORDERED: Sodium Chloride 0.9% 1,000 ML IV ONE (16:44)
[2021-03-30] MEDS ORDERED: oxyCODONE 5 MG Tab PO ONE (17:11)
== END 2021-03-30 19:07 | disposition home or self-care (01) ==
LOC: DL.ED 14:20
DX: S92.531A Displaced fracture of distal phalanx of right lesser toe(s), initial encounter for closed fracture (principal); E11.628 Type 2 diabetes mellitus with other skin complications; L03.116 Cellulitis of left lower limb; I10 Essential (primary) hypertension; E66.9 Obesity, unspecified; Z87.891 Personal history of nicotine dependence; Z88.8 Allergy status to other drugs, medicaments and biological substances; Z79.4 Long term (current) use of insulin; Z79.899 Other long term (current) drug therapy; Z86.14 Personal history of Methicillin resistant Staphylococcus aureus infection; Z68.37 Body mass index [BMI] 37.0-37.9, adult
CPT/HCPCS: 36415; 73630; 80053; 83605; 85025; 85379; 87040; 96365; 99283; 99285; A9270; J3370; J7050

== ENCOUNTER 2021-06-24 07:06 | Emergency (ER) | payer MEDICARE, MEDICAID ==
[2021-06-24 07:26] VITALS: BP 162/90; PULSE 95
[2021-06-24] MEDS ORDERED: Sodium Chloride 0.9% 1,000 ML IV ONE ×2 (07:57→09:30)
[2021-06-24 08:23] LABS: ANION GAP 17.9 mEq/L (7-13); CHLORIDE,CL 104 mmol/L (98-107); SODIUM,NA 142 mmol/L (136-145)
[2021-06-24] MEDS ORDERED: Ketorolac 30 MG/ML SDV IVPUSH ONE (08:25)
[2021-06-24] MEDS ORDERED: Ondansetron 4 MG/2 ML SDV IVPUSH ONE (08:25)
[2021-06-24] MEDS ORDERED: Magnesium Sulfate/Water 2 GM in Premix Bag 1 BAG IV ONE (08:37)
[2021-06-24 08:50] LABS: AMPHETAMINES,URINE NEGATIVE (NEGATIVE); BARBITURATES,URINE NEGATIVE (NEGATIVE); BENZODIAZEPINE,URINE NEGATIVE (NEGATIVE); MDMA (ECSTASY), URINE NEGATIVE (NEGATIVE); METHADONE,URINE NEGATIVE (NEGATIVE); METHAMPHETAMINES,URINE POSITIVE (NEGATIVE); OPIATES,URINE NEGATIVE (NEGATIVE); OXYCODONE,URINE POSITIVE (NEGATIVE); PHENCYCLIDINE,URINE NEGATIVE (NEGATIVE); TCA,URINE POSITIVE (NEGATIVE)
[2021-06-24] MEDS ORDERED: Acetaminophen 500 MG Tab PO ONE (09:42)
== END 2021-06-24 11:43 | disposition home or self-care (01) ==
LOC: DL.ED 07:06
DX: K52.9 Noninfective gastroenteritis and colitis, unspecified (principal); E86.0 Dehydration; E83.42 Hypomagnesemia; F15.90 Other stimulant use, unspecified, uncomplicated; I10 Essential (primary) hypertension; E11.9 Type 2 diabetes mellitus without complications; E66.9 Obesity, unspecified; Z68.30 Body mass index [BMI] 30.0-30.9, adult; Z88.8 Allergy status to other drugs, medicaments and biological substances; Z79.4 Long term (current) use of insulin; Z79.899 Other long term (current) drug therapy
CPT/HCPCS: 36415; 80053; 80305-QW; 80307; 81001; 81025; 82009; 83605; 83735; 85025; 86140; 96365; 96366; 96375; 99283; 99284-25; A9270-GY; J1885; J2405; J3475; J7030

== ENCOUNTER 2021-10-20 04:21 | Emergency (ER) | payer MEDICARE, MEDICAID ==
[2021-10-20 04:36] VITALS: BP 126/85; PULSE 79
[2021-10-20 05:28] LABS: ANION GAP 13.3 mEq/L (7-13); CHLORIDE,CL 104 mmol/L (98-107); ESTIMATED GFR 49 mL/min (>=60); SODIUM,NA 143 mmol/L (136-145)
[2021-10-20 05:41] LABS: CORONAVIRUS COVID-19 NAA NEGATIVE (NEGATIVE)
[2021-10-20] MEDS: Metoclopramide 10 MG/2 ML SDV IVPUSH ONE (05:51)
[2021-10-20] MEDS: Magnesium Sulfate/Water 2 GM in Premix Bag 1 BAG IV ONE (05:55)
[2021-10-20] MEDS: Acetaminophen 500 MG Tab PO ONE (06:02)
[2021-10-20 09:45] LABS: TCA,URINE POSITIVE (NEGATIVE)
[2021-10-20 09:46] LABS: AMPHETAMINES,URINE NEGATIVE (NEGATIVE); BARBITURATES,URINE NEGATIVE (NEGATIVE); BENZODIAZEPINE,URINE NEGATIVE (NEGATIVE); MDMA (ECSTASY), URINE NEGATIVE (NEGATIVE); METHADONE,URINE NEGATIVE (NEGATIVE); METHAMPHETAMINES,URINE NEGATIVE (NEGATIVE); OPIATES,URINE POSITIVE (NEGATIVE); OXYCODONE,URINE NEGATIVE (NEGATIVE); PHENCYCLIDINE,URINE NEGATIVE (NEGATIVE)
== END 2021-10-20 14:03 | disposition home or self-care (01) ==
LOC: DL.ED 04:21
DX: K57.32 Diverticulitis of large intestine without perforation or abscess without bleeding (principal); E11.22 Type 2 diabetes mellitus with diabetic chronic kidney disease; I12.9 Hypertensive chronic kidney disease with stage 1 through stage 4 chronic kidney disease, or unspecified chronic kidney disease; N18.9 Chronic kidney disease, unspecified; M06.9 Rheumatoid arthritis, unspecified; E66.9 Obesity, unspecified; Z68.38 Body mass index [BMI] 38.0-38.9, adult; Z88.8 Allergy status to other drugs, medicaments and biological substances; Z79.4 Long term (current) use of insulin; Z79.899 Other long term (current) drug therapy; Z20.822 Contact with and (suspected) exposure to COVID-19
CPT/HCPCS: 0240U; 36415; 74019; 74176; 80053; 80305-QW; 80307; 81001; 82150; 83605; 83690; 83735; 84145; 85025; 86140; 96365; 96375; 99285-25; A9270-GY; J2765; J3475

== ENCOUNTER 2021-11-05 09:09 | Emergency (ER) | payer MEDICARE, MEDICAID ==
[2021-11-05 09:51] LABS: ANION GAP 21.7 mEq/L (7-13); CHLORIDE,CL 94 mmol/L (98-107); SODIUM,NA 132 mmol/L (136-145)
[2021-11-05 09:58] LABS: ESTIMATED GFR 15 mL/min (>=60)
[2021-11-05] MEDS ORDERED: Sodium Chloride 0.9% 1,000 ML IV ONE ×2 (10:12→11:34)
[2021-11-05] MEDS ORDERED: Iopamidol 612 MG/ML 100 ML Bottle IVPUSH ONE (10:16)
[2021-11-05] MEDS ORDERED: Ondansetron 4 MG/2 ML SDV IVPUSH ONE (10:21)
[2021-11-05] MEDS ORDERED: HYDROmorphone 1 MG/ML Syringe IVPUSH ONE ×2 (10:21→11:41)
[2021-11-05] MEDS ORDERED: Norepinephrine 4 MG/4 ML SDV ONE (15:47)
[2021-11-05] MEDS ORDERED: Norepinephrine 4 MG in Dextrose 5% in Water 246 ML IV SCH ×2 (16:00)
[2021-11-05] MEDS ORDERED: Sodium Chloride 0.9% 1,000 ML IV SCH (16:00)
[2021-11-05 16:07] VITALS: BP 107/69; PULSE 104
== END 2021-11-05 16:16 ==
LOC: DL.ED 09:09
DX: S22.42XA Multiple fractures of ribs, left side, initial encounter for closed fracture (principal); D73.5 Infarction of spleen; N17.9 Acute kidney failure, unspecified; E11.9 Type 2 diabetes mellitus without complications; I95.89 Other hypotension; I10 Essential (primary) hypertension; E86.1 Hypovolemia; E66.9 Obesity, unspecified; Z68.30 Body mass index [BMI] 30.0-30.9, adult; Z20.822 Contact with and (suspected) exposure to COVID-19; W10.8XXA Fall (on) (from) other stairs and steps, initial encounter
CPT/HCPCS: 36415; 36430; 70450; 71260; 72125; 72128; 72131; 73060; 74176; 80053; 80307; 83605; 84484; 84703; 85014; 85018; 85025; 86140; 86850; 86900; 86901; 86920; 86922; 96361; 96374; 99284; 99285; J1170; J7030; P9016; Q9967; U0002